=== PATIENT | female | born 1950 | race Caucasian/White ===

== ENCOUNTER 2023-02-25 10:13 | Outpatient (OUT) | payer MEDICARE, SELFPAY ==
--- NOTE | 2023-02-25 10:16 | MM_ITS ---
Patient: SJ HALL Exam Date: 02/25/2023 : 1950 Gender:F Ordering : DR ABEL ROLAND D.O. Admission #: [id number] Family : Order #: [id number] CLICK HERE TO VIEW EXAM RADIOLOGY REPORT PROCEDURE: MM TOMOSYNTHESIS SCREENING BI COMPARISON: MG MAMM SCREEN 3D [place] CAD, 02/24/2021. INDICATIONS: Screening Calculator Name NCI Breast Cancer Risk Assessment Tool 5 Year Breast Cancer Risk Not Reported. Lifetime Breast Cancer Risk Not Reported. Personal Breast Cancer No Personal Ovarian Cancer No Treatments None Family Cancers None LOCATION: [facility] BREAST COMPOSITION: Extremely dense, which lowers the sensitivity of mammography. FINDINGS: DIAGNOSTIC CATEGORY 2--BENIGN FINDING: RIGHT BREAST: No significant suspicious finding. Scattered benign-appearing calcifications are present. No significant change has occurred. LEFT BREAST: No significant suspicious finding. Scattered benign-appearing calcifications are present. No significant change has occurred. Stable calcified mass posterior upper-outer quadrant. RECOMMENDATIONS: ROUTINE MAMMOGRAM AND CLINICAL EVALUATION IN 12 MONTHS. PLEASE NOTE: A NORMAL MAMMOGRAM DOES NOT EXCLUDE THE POSSIBILITY OF BREAST CANCER. A CLINICALLY SUSPICIOUS PALPABLE LUMP SHOULD BE BIOPSIED. Dictated by: Rikki Yang M.D. on 02/26/2023 at 14:52 Approved by: Rikki Yang M.D. on 02/26/2023 at 15:01
== END 2023-02-25 10:14 ==
LOC: MAMMO 10:13
PROVIDERS: PCP Internal Medicine; Visit Provider Internal Medicine
DX: Z12.31 Encounter for screening mammogram for malignant neoplasm of breast (principal)
CPT/HCPCS: 77063; 77067

== ENCOUNTER 2023-05-18 12:51 | Outpatient (RCR) | payer MEDICARE, SELFPAY | END 2023-06-18 16:06 | disposition home or self-care (01) | LOC: PT 12:51 | PROVIDERS: PCP Internal Medicine; Visit Provider Internal Medicine | DX: M54.50 Low back pain, unspecified (principal); M54.16 Radiculopathy, lumbar region | CPT/HCPCS: 97010; 97035; 97110; 97140; 97161; 97530; G0283 ==

== ENCOUNTER 2023-08-19 06:40 | Outpatient (OUT) | payer MEDICARE, SELFPAY ==
[2023-08-19 06:49] LABS: Basophils Absolute Auto 0.1 10^3/uL (0.0-0.1); Basophils Percent Auto 0.9 % (0.2-2.0); Eosinophils Absolute Auto 0.4 10^3/uL (0.0-0.7); Eosinophils Percent Auto 5.6 % (0.9-7.0); Hematocrit 35.5 % (36.0-48.0); Hemoglobin 11.6 g/dL (12.0-16.0); Immature Granulocytes Abs Auto 0.02 10^3/uL (0.00-0.03); Immature Granulocytes Pct Auto 0.3 % (0.0-0.5); Lymphocytes Absolute Auto 1.2 10^3/uL (1.2-3.8); Lymphocytes Percent Auto 17.5 % (20.5-60.0); Mean Corpuscular HGB Conc 32.7 g/dL (29.9-35.2); Mean Corpuscular Hemoglobin 32.4 pg (26.7-34.0); Mean Corpuscular Volume 99.2 fL (81.0-99.0); Mean Platelet Volume 9.4 fL (9.5-13.5); Monocytes Absolute Auto 0.7 10^3/uL (0.3-0.8); Neutrophils Absolute Auto 4.5 10^3/uL (1.4-6.5); Neutrophils Percent Auto 65.7 % (43.0-75.0); Platelet Count 271 10^3/uL (150-450); Red Blood Count 3.58 10^6/uL (4.20-5.40); Red Cell Distribution Width 12.6 % (11.0-15.0); White Blood Count 6.9 10^3/uL (4.0-11.0)
[2023-08-19 07:05] LABS: Alanine Aminotransferase 19 U/L (14-59); Anion Gap 11.7; BUN Creatinine Ratio 17.7; Calcium 8.7 mg/dL (8.5-10.1); Carbon Dioxide 30.5 mmol/L (21.0-32.0); Chloride 104 mmol/L (98-107); Cholesterol 124 mg/dL (<=200); Estimated GFR (African America >60 (>=60); Estimated GFR (Non-African Ame >60 (>=60); Glucose 100 mg/dL (74-106); HDL Cholesterol 62 mg/dL (40-60); Potassium 4.2 mmol/L (3.5-5.1); Sodium 142 mmol/L (136-145); Triglycerides 120 mg/dL (<=150)
== END 2023-08-19 06:41 | disposition home or self-care (01) ==
LOC: LAB 06:40
PROVIDERS: PCP Internal Medicine; Visit Provider Internal Medicine
DX: E78.00 Pure hypercholesterolemia, unspecified (principal); I25.10 Atherosclerotic heart disease of native coronary artery without angina pectoris; I10 Essential (primary) hypertension; Z79.899 Other long term (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 therapy
CPT/HCPCS: 36415; 80048; 80061; 84460; 85025

== ENCOUNTER 2023-11-26 08:21 | Outpatient (OUT) | payer MEDICARE, SELFPAY ==
--- OUTSIDE RECORDS SUMMARY | 2023-11-26 08:23 | XMS_ITS | CCD ---
Author Name Unknown Address [address] [place] [address] Organization [facility] Care Team Providers Care Aluminum Siding Installer Name Role Phone FELISA HYATT Attending Unavailable ASUNCION, DONTAE Primary Care Unavailable DONTAE URIBE Referring Unavailable MASROOR, FELISA Admitting Unavailable ERIROOR, FELISA Attending Unavailable DONTAE URIBE Primary Care Unavailable DONTAE URIBE Referring Unavailable MASROOR, FELISA Admitting Unavailable MASROOR, FELISA Surgeon Unavailable MD Procedure Practitioner Unavailab le ELTAJOIE, JANAY Alba Admitting Unavailable ELTAHAWY, JANAY Alba Attending Unavailable DONTAE URIBE Primary Care Unavailable DONTAE URIBE Referring Unavailable Travis Richter Unavailable Dontae Uribe Unavailable PIPPA, TOMÁS Attending Unavailable ELTAHAWY, JANAY Attending Unavailable PIPPA, TOMÁS Admitting Unavailable PIPPA, TOMÁS Attending Unavailable HOY, BRANDI Primary Care Unavailable PIPPA, TOMÁS Consulting Unavailable BALL, DR ROMAN Admitting Unavailable BALL, DR ROMAN Attending Unavailable HOY, BRANDI Primary Care Unavailable BALL, DR ROMAN Consulting Unavailable BALL, DR ROMAN Admitting Unavailable BALL, DR ROMAN Attending Unavailable HOY, BRANDI Primary Care Unavailable BALL, DR ROMAN Consulting Unavailable PIPPA, TOMÁS Admitting Unavailable PIPPA, TOMÁS Attending Unavailable HOY, BRANDI Primary Care Unavailable ELTAHAWY, DR ASHFORD Admitting Unavailable ELTAHAWY, DR ASHFORD Attending Unavailable BALL, DR ROMAN Primary Care Unavailable ELTAHAWY, DR ASHFORD Consulting Unavailable ELTAHAWY, DR ASHFORD Admitting Unavailable ELTAHAWY, DR ASHFORD Attending Unavailable HOY, BRANDI Primary Care Unavailable ELTAHAWY, DR ASHFORD Consulting Unavailable Allergies Allergy Classification Reported Allergen(s) Allergy Type Date of Onset Reaction(s) Facility (4 sources) black walnut pollen extract; Translations: [[id number]-IOM REDUCTASE INHIBITORS] Drug Allergy 07-31-20 09 [facility] Repository (4 sources) Cephalosporins (Antibiotic); Translations: [CEPHALOSPORINS] Drug allergy (disorder) 07-31-20 09 [facility] Repository (1 source) Ciprofloxacin; Translations: [CIPRO] Drug Allergy 03-27-20 21 [facility] Repository (4 sources) Penicillins; Translations: [PENICILLINS] Drug allergy (disorder) 07-31-20 09 [facility] Repository (12 sources) Hmg-Coa Reductase Inhibitors (Statins) Propensity to adverse reactions [facility]WE[facility] Other (12 sources) Pcn, Cephalasporins Propensity to adverse reactions (Eriberto) 10/07/2012 [facility] Other (14 sources) Ciprofloxacin; Translations: [CIPROFLOXACIN] Drug Allergy 08-30-20 13 Unknown [facility] Repository (13 sources) Substance with sulfonamide structure and antibacterial mechanism of action (substance) Drug allergy Unknown [facility] Other (2 sources) Sulfonamides (Antibiotic) Drug allergy (disorder) 06-23-20 13 [facility] Repository (6 sources) HMG-CoA reductase inhibitor Drug allergy Unknown [employer] Other (6 sources) Penicillin G Benzathine & Proc Drug allergy 01-15-20 18 Unknown [facility] Other (4 sources) Statins Support *DIETARY PRODUCTS/DIETARY MANAGEME Propensity to adverse reactions 01-15-20 18 Unknown [facility] Other (1 source) Substance with penicillin structure and antibacterial mechanism of action (substance) Drug allergy Unknown [facility] Other (6 sources) Medicinal cephalosporin and acting as antibacterial agent (FN) Drug allergy 01-15-20 18 Unknown [facility] Other (1 source) patient allergy list reviewed by nurse or physicia Propensity to adverse reactions 01-15-20 18 Comment:Done [employer] Other Medications Current Medications Medication Drug Class(es) Dates Sig (Normalized) Sig (Original) [id number] 200 actuat albuterol 0.09 mg/actuat metered dose inhaler (13 sources) beta2-Adrenergic Agonist take 1 puff(s) by inhalation every four hours as needed Albuterol Sulfate HFA 108 (90 Base) MCG/ACT 1 puff as needed Inhalation every 4 hrs Active amLODIPine 5 mg oral tablet (14 sources) Dihydropyridine Calcium Channel Karmen take 1 tablet by mouth every twenty-four hours aspirin 81 mg chewable tablet (14 sources) Platelet Aggregation Inhibitor, Nonsteroidal Anti-inflammatory Drug take 2 tablets by mouth every twenty-four hours Aspirin 81 MG 2 tablet Orally Once a day Active azithromycin 250 mg oral tablet (20 sources) Macrolide Antimicrobial Start: 05-25-2023 take 250 mg by mouth once daily Start: 10-16-2022 Azithromycin 2 50 MG as directed Orally daily for 5 days Feb, Not-Taking Azithromycin 250 MG 2 tablet today followed by 1 daily Orally DAILY for 5 days Not-Taking Caltrate 600+D Plus Minis (13 sources) Caltrate 600+D P dung Minis Active carvedilol 25 mg oral tablet (14 sources) alpha-Adrenergic Karmen, beta-Adrenergic Karmen take 1 tablet by mouth every twelve hours Carvedilol 25 MG 1 tablet with food Orally Twice a day Active Carvedilol 6.25 MG Orally bid Active clopidogrel 75 mg oral tablet (14 sources) P2Y12 Platelet Inhibitor take 1 tablet by mouth every twenty-four hours dicyclomine hydrochloride 10 mg oral tablet (14 sources) Anticholinergic take 1 capsule by mouth four times daily as needed docusate sodium 100 mg oral capsule (14 sources) take 1 capsule by mouth every twenty-four hours 1 ml evolocumab 140 mg/ml prefilled syringe (14 sources) PCSK9 Inhibitor inject 1 mL by subcutaneous injection every month Repatha 140 MG/ML 1 mL Subcutaneous ONCE A MONTH Active Repatha Active ezetimibe 10 mg oral tablet (14 sources) Dietary Cholesterol Absorption Inhibitor take 1 tablet by mouth every twenty-four hours Zetia 10 MG 1 tablet Orally Once a day Active Zetia Active furosemide 20 mg oral tablet (7 sources) Loop Diuretic take 1 tablet by mouth every twenty-four hours Lasix 20 MG 1 tablet Orally Once a day Active linaclotide 0.145 mg oral capsule (14 sources) Guanylate Cyclase-C Agonist Start: 4 take 1 capsule by mouth once daily in the morning losartan potassium 25 mg oral tablet (14 sources) Angiotensin 2 Receptor Karmen take 1 tablet by mouth every twenty-four hours Losartan Potassium 25 MG 1 tablet Orally Once a day Active Losartan Potassi um Active Plenvu Bowel Prep PEG 3350 1 40g, Sodium Ascorbate 48.11g, Sodium Sulfate 9g, Ascorbic Acid 7.54g, Sodium Chloride 5.2g, Potassium Chloride 2.2g (14 sources) Start: 11-21-2019 Start: 11-21-2019 Plenvu Bowel P rep PEG 3350 140g, Sodium Ascorbate 48.11g, Sodium Sulfate 9g, Ascorbic Acid 7.54g, Sodium Chloride 5.2g, Potassium Chloride 2.2g Dose 1 pouch at 4pm as directed and pouches A and B at 11pm as directed orally one day before your procedure for 1 days [id number] PCN: [id number] GROUP:[id number] ID:[id number] Nov, Not-Taking predniSONE 1 mg/ml oral solution (13 sources) take 5 mL by mouth t hree times daily predniSONE 5 MG/5ML 5 mL Orally three times daily for 10 days Active take 5 mL by mouth once daily pr edniSONE 5 MG/5ML 5 mL Orally Once a day Active Tylenol Extra Strength 500 M G (14 sources) take 1 tablet by mouth every six hours as needed take 1 tablet by lucita th every six hours as needed Tylenol Extra Strength 500 MG 1 tablet a s needed Orally every 6 hrs Not-Taking Completed/Discontinued Medications Medication Drug Class(es) Dates Sig (Normalized) Sig (Original) benzonatate 200 mg oral capsule (3 sources) Non-narcotic Antitussive Start: 05-27-2023 take 1 capsule by mouth every eight hours Benzonatate 200 MG 1 capsule Orally Three times a day for 10 days May, Not-Taking Problems Active Problems Problem Classification Problem Date Documented Da te Episodic/Chronic Abdominal hernia (14 sources) Hiatal hernia; Translations: [Diaphragmatic hernia without obstruction or gangrene] Episodic Abdominal pain (20 sources) Abdominal pain; Translations: [Unspecified abdominal pain] Onset: 2 Resolved: 2 Episodic Acute bronchitis (14 sources) Acute bronchitis; Translations: [Acute bronchitis due to other specified organisms] Episodic Asthma (20 sources) Uncomplicated mild persistent asthma; Translations: [Mild persistent asthma, uncomplicated] Chronic Cardiac dysrhythmias (14 sources) Paroxysmal atrial fibrillation; Translations: [Paroxysmal atrial fibrillation] Chronic Chronic obstructive pulmonary disease and bronchiectasis (4 sources) Chronic bronchitis; Translations: [Unspecified chronic bronchitis] Onset: 8 Chronic Coronary atherosclerosis and other heart disease (20 sources) Coronary arteriosclerosis; Translations: [Atherosclerotic heart disease of [place] coronary artery without angina pectoris] Onset: 0 Resolved: 2 Chronic Coronary atherosclerosis and other heart disease (4 sources) Bypass stent graft present; Translations: [Presence of aortocoronary bypass graft] Episodic Digestive congenital anomalies (15 sources) Terminal esophageal web; Translations: [Esophageal web] Onset: 2 Resolved: 2 Chronic Disorders of lipid metabolism (20 sources) Pure hypercholesterolemia; Translations: [Familial hypercholesterolemia] Onset: 8 Chronic Esophageal disorders (16 sources) Stricture of esophagus; Translations: [Esophageal obstruction] Chronic Esophageal disorders (15 sources) Esophageal disorders; Translations: [Gastroesophageal reflux disease with esophagitis without hemorrhage] Essential hypertension (20 sources) Essential hypertension; Translations: [Essential (primary) hypertension] Onset: 2 Chronic Gastroduodenal ulcer (except hemorrhage) (4 sources) Peptic ulcer without hemorrhage, without perforation AND without obstruction; Translations: [Peptic ulcer, site unspecified, unspecified as acute or chronic, without hemorrhage or perforation] Chronic Gastrointestinal hemorrhage (14 sources) Rectal hemorrhage; Translations: [Hemorrhage of anus and rectum] Episodic Headache; including migraine (9 sources) Migraine with aura; Translations: [Migraine with aura, not intractable, without status migrainosus] Chronic Nonspecific chest pain (20 sources) Chest wall pain; Translations: [Other chest pain] Onset: 2 Resolved: 0 Episodic Osteoarthritis (17 sources) Localized, primary osteoarthritis of the shoulder region; Translations: [Primary osteoarthritis, right shoulder] Chronic Osteoporosis (13 sources) Primary osteoporosis; Translations: [Age-related osteoporosis without current pathological fracture] Chronic Other aftercare (1 source) 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 Episodic Other connective tissue disease (13 sources) Tendinitis of right rotator cuff; Translations: [Other shoulder lesions, right shoulder] Episodic Other connective tissue disease (4 sources) Mass of shoulder region; Translations: [Other shoulder lesions, right shoulder] Episodic Other gastrointestinal disorders (13 sources) Irritable bowel syndrome characterized by constipation; Translations: [Irritable bowel syndrome with constipation] Chronic Other gastrointestinal disorders (14 sources) Constipation; Translations: [Constipation, unspecified] Episodic Other gastrointestinal disorders (14 sources) Dysphagia; Translations: [Dysphagia, unspecified] Episodic Other gastrointestinal disorders (2 sources) Dysphagia, unspecified Onset: 2 Resolved: 2 Episodic Other gastrointestinal disorders (2 sources) Constipation, unspecified Onset: 2 Resolved: 2 Episodic Other gastrointestinal disorders (4 sources) H/O: gastrointestinal disease; Translations: [Personal history of other diseases of the digestive system] Episodic Other injuries and conditions due to external causes (4 sources) History of fall; Translations: [History of falling] Episodic Other non-traumatic joint disorders (4 sources) Shoulder joint pain; Translations: [Pain in right shoulder] Episodic Other screening for suspected conditions (not mental disorders or infectious disease) (1 source) Encounter for screening mammogram for malignant neoplasm of breast Episodic Other skin disorders (17 sources) Vesicular eczema of hands and/or feet; Translations: [Dyshidrosis [pompholyx]] Episodic Other upper respiratory disease (17 sources) Allergic rhinitis due to pollen; Translations: [Allergic rhinitis due to pollen] Chronic Other upper respiratory infections (20 sources) Acute maxillary sinusitis; Translations: [Acute recurrent maxillary sinusitis] Episodic Residual codes; unclassified (13 sources) Asymptomatic menopausal state; Translations: [Menopause] Episodic Residual codes; unclassified (4 sources) Tobacco user; Translations: [Tobacco use] Episodic Residual codes; unclassified (4 sources) Postmenopausal state; Translations: [Asymptomatic menopausal state] Episodic Spondylosis; intervertebral disc disorders; other back problems (19 sources) Lumbar spondylosis; Translations: [Spondylosis without myelopathy or radiculopathy, lumbar region] Chronic Spondylosis; intervertebral disc disorders; other back problems (1 source) Radiculopathy, site unspecified Episodic Sprains and strains (17 sources) Neck sprain; Translations: [Strain of muscle, fascia and tendon at neck level, initial encounter] Episodic Viral infection (4 sources) 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; Translations: [Post COVID-19 condition, unspecified] Past or Other Problems Problem Classification Problem Date Documented Date Episodic/Chronic Bacterial infection; unspecified site (2 sources) Bacterial infectious disease; Translations: [Bacterial infection, unspecified, in conditions classified elsewhere and of unspecified site] Onset: 01-14-2018 Episodic Diverticulosis and diverticulitis (4 sources) Diverticulitis of colon; Translations: [Diverticulitis of intestine, part unspecified, without perforation or abscess without bleeding] Resolved: 10-22-2020 Chronic Immunizations and screening for infectious disease (4 sources) Contact with and (suspected) exposure to other viral communicable diseases; Translations: [Contact with and (suspected) exposure to COVID-19] Resolved: 02-03-2021 Episodic Nausea and vomiting (4 sources) Nausea; Translations: [Nausea] Resolved: 08-08-2020 Episodic Otitis media and related conditions (6 sources) Unspecified Eustachian tube disorder, left ear; Translations: [Eustachian tube salpingitis] Onset: 12-08-2018 Episodic Residual codes; unclassified (4 sources) Edema, unspecified; Translations: [EDEMA UNSPECIFIED] Onset: 03-05-2022 Episodic Unclassified (11 sources) Post-COVID syndrome; Translations: [Post-COVID syndrome] Unclassified (1 source) Acute cough R05.1 Unclassified (2 sources) 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 Rigo Julio Basophils/100 WBC (Bld) 0.6 % Normal 0.2-2.0 [facility] Comment on above: Performed By: #### H FPFCBC #### [facility] [address] [address] [address] Rigo Julio EO # 0.1 103/ul Normal 0.0-0.7 [facility] Comment on above: Performed By: #### H FPFCBC #### [facility] [address] [place] [address] Dr. Rigo Julio Eosinophils/100 WBC (Bld) 1.4 % Normal 0.9-7.0 [facility] Comment on above: Performed By: #### H FPFCBC #### [facility] [address] [place] [address] Dr. Rigo Julio Erythrocyte distribution width (RBC) [Ratio] 12.8 % Normal 11.0-15.0 [facility] Comment on above: Performed By: #### H FPFCBC #### [facility] [address] [place] [address] Dr. Rigo Julio Hematocrit (Bld) [Volume fraction] 37.5 % Normal 36.0-48.0 [facility] Comment on above: Performed By: #### H FPFCBC #### [facility] [address] [place] [address] Dr. Rigo Julio Hemoglobin (Bld) [Mass/Vol] 12.3 g/dL Normal 12.0-16.0 [facility] Comment on above: Performed By: #### H FPFCBC #### [facility] [address] [place] [address] Dr. Rigo Julio IG # 0.02 10e3/ul Normal 0.00-0.03 [facility] Comment on above: Performed By: #### H FPFCBC #### [facility] [address] [place] [address] Dr. Rigo Julio IG % 0.3 % Normal 0.0-0.5 [facility] Comment on above: Performed By: #### H FPFCBC #### [facility] [address] [place] [address] Dr. Rigo Julio LYMPH # 1.3 103/ul Normal 1.2-3.8 [facility] Comment on above: Performed By: #### H FPFCBC #### [facility] [address] [place] [address] Dr. Rigo Julio Lymphocytes/100 WBC (Bld) 20.1 % Critically low 20.5-60.0 [facility] Comment on above: Performed By: #### H FPFCBC #### [facility] [address] [place] [address] Dr. Rigo Julio MCH (RBC) [Entitic mass] 31.4 pg Normal 26.7-34.0 [facility] Comment on above: Performed By: #### H FPFCBC #### [facility] [address] [place] [address] Dr. Rigo Julio MCHC (RBC) [Mass/Vol] 32.8 g/dL Normal 29.9-35.2 [facility] Comment on above: Performed By: #### H FPFCBC #### [facility] [address] [place] [address] Dr. Rigo Julio MCV (RBC) [Entitic vol] 95.7 fL Normal 81.0-99.0 [facility] Comment on above: Performed By: #### H FPFCBC #### [facility] [address] [place] [address] Dr. Rigo Julio MONO # 0.5 103/ul Normal 0.3-0.8 [facility] Comment on above: Performed By: #### H FPFCBC #### [facility] [address] [place] [address] Dr. Rigo Julio Monocytes/100 WBC (Bld) 7.3 % Normal 1.7-12.0 [facility] Comment on above: Performed By: #### H FPFCBC #### [facility] [address] [place] [address] Dr. Rigo Julio NEUT # 4.6 103/ul Normal 1.4-6.5 [facility] Comment on above: Performed By: #### H FPFCBC #### [facility] [address] [place] [address] Dr. Rigo Julio Neutrophils/100 WBC (Bld) 70.3 % Normal 43.0-75.0 [facility] Comment on above: Performed By: #### H FPFCBC #### [facility] [address] [address] [address] Rigo Julio Platelet mean volume (Bld) [Entitic vol] 9.6 fL Normal 9.5-13.5 [facility] Comment on above: Performed By: #### H FPFCBC #### [facility] [address] [address] [address] Rigo Julio PLT 272 103/ul Normal 150-450 [facility] Comment on above: Performed By: #### H FPFCBC #### [facility] [address] [address] [address] Rigo Julio RBC 3.92 106/ul Critically low 4.20-5.40 [facility] Comment on above: Performed By: #### H FPFCBC #### [facility] [address] [place] [address] Dr. Rigo Julio WBC 6.5 103/ul Normal 4.0-11.0 [facility] Comment on above: Performed By: #### H FPFCBC #### [facility] [address] [place] [address] Dr. Rigo Juloi [facility] GLYCOHEMOGLOBIN A1Con 11-24-2022 Glucose [Mass/Vol] 114 mg/dL Normal [facility] Comment on above: Performed By: #### H FPFA1C #### [facility] [address] [place] [address] Dr. Rigo Julio HbA1c (Bld) [Mass fraction] 5.6 % Normal 4.5-6.2 [facility] Comment on above: Performed By: #### H FPFA1C #### [facility] [address] [place] [address] Dr. Rigo Jul[facility]23 Albumin [Mass/Vol] 4.2 g/dL Normal 3.4-5.0 [facility] Comment on above: Performed By: #### H FPF #### [facility] [address] [place] [address] Dr. Rigo Julio Albumin/Globulin [Mass ratio] 1.2 {ratio} Normal [facility] Comment on above: Performed By: #### H FPF #### [facility] [address] [address] [address] Rigo Julio ALP [Catalytic activity/Vol] 76 U/L Normal 46-116 [facility] Comment on above: Performed By: #### H FPF #### [facility] [address] [address] [address] Rigo Julio ALT [Catalytic activity/Vol] 23 U/L Normal 14-59 [facility] Comment on above: Performed By: #### H FPF #### [facility] [address] [address] [address] Rigo Julio AST [Catalytic activity/Vol] 19 U/L Normal 15-37 [facility] Comment on above: Performed By: #### H FPF #### [facility] [address] [address] [address] Rigo Julio Bilirubin [Mass/Vol] 0.4 mg/dL Normal 0.2-1.0 [facility] Comment on above: Performed By: #### H FPF #### [facility] [address] [address] [address] Rigo Julio Calcium [Mass/Vol] 9.2 mg/dL Normal 8.5-10.1 [facility] Comment on above: Performed By: #### H FPF #### [facility] [address] [address] [address] Rigo Julio Chloride [Moles/Vol] 105 mmol/L Normal 98-107 [facility] Comment on above: Performed By: #### H FPF #### [facility] [address] [address] [address] Rigo Julio CHOL-HDL RATIO NORM SEE BELOW Normal [facility] Comment on above: Result Comment: 3.3 - 4.4 LOW RISK 4.4 - 7.1 AVERAGE RISK 7.1 - 11.0 MODERATE RISK >11.0 HIGH RISK Performed By: #### H FPF #### [facility] [address] [address] [address] Rigo Julio Cholesterol [Mass/Vol] 158 mg/dL Normal <=200 [facility] Comment on above: Performed By: #### H FPF #### [facility] [address] [address] [address] Rigo Julio Cholesterol in HDL [Mass/Vol] 59 mg/dL Normal 40-60 [facility] Comment on above: Performed By: #### H FPF #### [facility] [address] [address] [address] Rigo Julio Cholesterol in LDL [Mass/Vol] 69.0 mg/dL Normal [facility] Comment on above: Performed By: #### H FPF #### [facility] [address] [address] [address] Rigo Julio Cholesterol.total/Cho lesterol in HDL [Mass ratio] 2.7 {ratio} Normal [facility] Comment on above: Performed By: #### H FPF #### [facility] [address] [address] [address] Rigo Julio CO2 [Moles/Vol] 30.2 mmol/L Normal 21.0-32.0 [facility] Comment on above: Performed By: #### H FPF #### [facility] [address] [address] [address] Rigo Julio Creatinine [Mass/Vol] 0.79 mg/dL Normal 0.55-1.02 [facility] Comment on above: Performed By: #### H FPF #### [facility] [address] [address] [address] Rigo Julio Globulin (S) [Mass/Vol] 3.6 g/dL Normal [facility] Comment on above: Performed By: #### H FPF #### [facility] [address] [address] [address] Rigo Julio Glucose [Mass/Vol] 99 mg/dL Normal 74-106 [facility] Comment on above: Performed By: #### H FPF #### [facility] [address] [address] [address] Rigo Julio HDL NORMAL > or = 60 mg/dl - LO W CARDIOVASCULAR RISK <40 mg/dl - HIGH CARDIOVASCULAR RISK Normal [facility] Comment on above: Performed By: #### H FPF #### [facility] [address] [address] [address] Rigo Julio LDL CALC NORMAL SEE BELOW Normal [facility] Comment on above: Result Comment: <100 mg/dl OPTIMAL 100 - 129 mg/dl NEAR OR ABOVE OPTIMAL 130 - 159 mg/dl BORDERLINE HIGH 160 - 189 mg/dl HIGH >190 mg/dl VERY HIGH Performed By: #### H FPF #### [facility] [address] [address] Dr[address] Rigo Julio Potassium [Moles/Vol] 4.8 mmol/L Normal 3.5-5.1 [facility] Comment on above: Performed By: #### H FPF #### [facility] [address] [place] [address] Dr. Rigo Julio Protein [Mass/Vol] 7.8 g/dL Normal 6.4-8.2 [facility] Comment on above: Performed By: #### H FPF #### [facility] [address] [place] [address] Dr. Rigo Julio Sodium [Moles/Vol] 143 mmol/L Normal 136-145 [facility] Comment on above: Performed By: #### H FPF #### [facility] [address] [place] [address] Dr. Rigo Julio Triglyceride [Mass/Vol] 150 mg/dL Normal <=150 [facility] Comment on above: Performed By: #### H FPF #### [facility] [address] [address] [address] Rigo Julio TSH 1.255 uIU/mL Normal 0.358-3.740 [facility] Comment on above: Performed By: #### H FPF #### [facility] [address] [address] [address] Rigo Julio Urea nitrogen [Mass/Vol] 11.0 mg/dL Normal 7.0-18.0 [facility] Comment on above: Performed By: #### H FPF #### [facility] [address] [place] [address] Dr. Rigo Julio Urea nitrogen/Creatinine [Mass ratio] 13.9 mg/mg Normal [facility] Comment on above: Performed By: #### H FPF #### [facility] [address] [address] [address] Rigo Julio VLDL CALC 30.0 mg/dL Normal [facility] Comment on above: Performed By: #### H FPF #### [facility] [address] [address] [address] Rigo Julio Office Visiton 11-23-2022 Follow-up visit [id number] Mandy Brewstermichael Champagne 1950 F Date Provider Department Center 11/23/2022 Priscilla-JANAY AJ [facility] Family History Problem Relation Age of Onset Coronary artery disease Mother Coronary artery disease Father Alzheimer's disease Father Family Status - Relation Status Age at Mother Father Level of Service:19983 MD OFFICE/OUTPATIENT ESTABLISHED LOW MDM 20-29 MIN Reason for Visit and Comments: Coronary Artery Disease [187] Hypertension [888898] Hyperlipidemia [182] Normal [facility] LIPID PROFILEon 10-06-2022 CHOL-HDL RATIO NORM SEE BELOW Normal [facility] Comment on above: Result Comment: 3.3 - 4.4 LOW RISK 4.4 - 7.1 AVERAGE RISK 7.1 - 11.0 MODERATE RISK >11.0 HIGH RISK Performed By: #### L IPID, CMP #### [facility] [address] [place] [address] Dr. Rigo Julio Cholesterol [Mass/Vol] 131 mg/dL Normal <=200 [facility] Comment on above: Performed By: #### L IPID, CMP #### [facility] [address] [place] [address] Dr. Rigo Julio Cholesterol in HDL [Mass/Vol] 56 mg/dL Normal 40-60 [facility] Comment on above: Performed By: #### L IPID, CMP #### [facility] [address] [address] [address] Rigo Julio Cholesterol in LDL [Mass/Vol] 43.8 mg/dL Normal [facility] Comment on above: Performed By: #### L IPID, CMP #### [facility] [address] [address] [address] Rigo Julio Cholesterol.total/Cho lesterol in HDL [Mass ratio] 2.3 {ratio} Normal [facility] Comment on above: Performed By: #### L IPID, CMP #### [facility] [address] [address] [address] Rigo Julio HDL NORMAL > or = 60 mg/dl - LO W CARDIOVASCULAR RISK <40 mg/dl - HIGH CARDIOVASCULAR RISK Normal [facility] Comment on above: Performed By: #### L IPID, CMP #### [facility] [address] [address] [address] Rigo Julio LDL CALC NORMAL SEE BELOW Normal [facility] Comment on above: Result Comment: <100 mg/dl OPTIMAL 100 - 129 mg/dl NEAR OR ABOVE OPTIMAL 130 - 159 mg/dl BORDERLINE HIGH 160 - 189 mg/dl HIGH >190 mg/dl VERY HIGH Performed By: #### L IPID, CMP #### [facility] [address] [address] [address] Rigo Julio Triglyceride [Mass/Vol] 156 mg/dL Critically high <=150 [facility] Comment on above: Performed By: #### L IPID, CMP #### [facility] [address] [address] [address] Rigo Julio VLDL CALC 31.2 mg/dL Normal [facility] Comment on above: Performed By: #### L IPID, CMP #### [facility] [address] [address] [address] Rigo Julio PROF 14(COMP METB)on 023 Albumin [Mass/Vol] 3.7 g/dL Normal 3.4-5.0 [facility] Comment on above: Performed By: #### L IPID, CMP #### [facility] [address] [address] [address] Rigo Julio Albumin/Globulin [Mass ratio] 1.1 {ratio} Normal [facility] Comment on above: Performed By: #### L IPID, CMP #### [facility] [address] [address] [address] Rigo Julio ALP [Catalytic activity/Vol] 80 U/L Normal 46-116 [facility] Comment on above: Performed By: #### L IPID, CMP #### [facility] [address] [address] [address] Rigo Julio ALT [Catalytic activity/Vol] 16 U/L Normal 14-59 [facility] Comment on above: Performed By: #### L IPID, CMP #### [facility] [address] [address] [address] Rigo Julio Anion gap [Moles/Vol] 11.7 mmol/L Normal [facility] Comment on above: Performed By: #### L IPID, CMP #### [facility] [address] [address] [address] Rigo Julio AST [Catalytic activity/Vol] 16 U/L Normal 15-37 [facility] Comment on above: Performed By: #### L IPID, CMP #### [facility] [address] [address] [address] Rigo Julio Bilirubin [Mass/Vol] 0.3 mg/dL Normal 0.2-1.0 [facility] Comment on above: Performed By: #### L IPID, CMP #### [facility] [address] [address] [address] Rigo Julio Calcium [Mass/Vol] 9.3 mg/dL Normal 8.5-10.1 [facility] Comment on above: Performed By: #### L IPID, CMP #### [facility] [address] [address] [address] Rigo Julio Chloride [Moles/Vol] 104 mmol/L Normal 98-107 [facility] Comment on above: Performed By: #### L IPID, CMP #### [facility] [address] [address] [address] Rigo Julio CO2 [Moles/Vol] 30.1 mmol/L Normal 21.0-32.0 [facility] Comment on above: Performed By: #### L IPID, CMP #### [facility] [address] [address] [address] Rigo Julio Creatinine [Mass/Vol] 0.74 mg/dL Normal 0.55-1.02 [facility] Comment on above: Performed By: #### L IPID, CMP #### [facility] [address] [address] [address] Rigo Julio EGFR-AF GAMBIAN >60 Normal >=60 [facility] Comment on above: Performed By: #### L IPID, CMP #### [facility] [address] [address] [address] Rigo Julio EGFR-NON AF GAMBIAN >60 Normal >=60 [facility] Comment on above: Performed By: #### L IPID, CMP #### [facility] [address] [address] [address] Rigo Julio Globulin (S) [Mass/Vol] 3.5 g/dL Normal [facility] Comment on above: Performed By: #### L IPID, CMP #### [facility] [address] [address] [address] Rigo Julio Glucose [Mass/Vol] 105 mg/dL Normal 74-106 [facility] Comment on above: Performed By: #### L IPID, CMP #### [facility] [address] [address] [address] Rigo Julio Potassium [Moles/Vol] 4.8 mmol/L Normal 3.5-5.1 [facility] Comment on above: Performed By: #### L IPID, CMP #### [facility] [address] [address] [address] Rigo Julio Protein [Mass/Vol] 7.2 g/dL Normal 6.4-8.2 [facility] Comment on above: Performed By: #### L IPID, CMP #### [facility] [address] [address] [address] Rigo Julio Sodium [Moles/Vol] 141 mmol/L Normal 136-145 [facility] Comment on above: Performed By: #### L IPID, CMP #### [facility] [address] [address] [address] Rigo Julio Urea nitrogen [Mass/Vol] 13.0 mg/dL Normal 7.0-18.0 [facility] Comment on above: Performed By: #### L IPID, CMP #### [facility] [address] [address] [address] Rigo Julio Urea nitrogen/Creatinine [Mass ratio] 17.6 mg/mg Normal [facility] Comment on above: Performed By: #### L IPID, CMP #### [facility] [address] [address] [address] Rigo Julio 36on 07-06-2022 36 Patient spoke with Jena at [facility] cardiac rehab and had her give me this message: She has gone back down to losartan 25mg daily due to lightheadedness and hypotension. Said her BP has been ok. Jena said her BP this morning at rehab was 128 systolic. Normal [facility] Follow-Upon 07-01-2022 Follow-Up [id number] Angelo Brewster 1950 F Date Provider Department Center 07/01/2022 TOMÁS LOPEZ [facility] Family History Problem Relation Age of Onset Coronary artery disease Mother Coronary artery disease Father Alzheimer's disease Father Family Status - Relation Status Age at Mother Father Level of Service:21662 MD OFFICE/OUTPATIENT ESTABLISHED LOW MDM 20-29 MIN Reason for Visit and Comments: Coronary Artery Disease [187] Hyperlipidemia [182] Hypertension [667118] Normal [facility] LIPID PROFILEon 04-14-2022 CHOL-HDL RATIO NORM SEE BELOW Normal [facility] Comment on above: Result Comment: 3.3 - 4.4 LOW RISK 4.4 - 7.1 AVERAGE RISK 7.1 - 11.0 MODERATE RISK >11.0 HIGH RISK Performed By: #### L IPID, LIVER #### [facility] [address] [address] [address] Rigo Julio Cholesterol [Mass/Vol] 122 mg/dL Normal <=200 [facility] Comment on above: Performed By: #### L IPID, LIVER #### [facility] [address] [address] [address] Rigo Julio Cholesterol in HDL [Mass/Vol] 58 mg/dL Normal 40-60 [facility] Comment on above: Performed By: #### L IPID, LIVER #### [facility] [address] [address] [address] Rigo Julio Cholesterol in LDL [Mass/Vol] 33.4 mg/dL Normal [facility] Comment on above: Performed By: #### L IPID, LIVER #### [facility] [address] [place] [address] Dr. Rigo Julio Cholesterol.total/Cho lesterol in HDL [Mass ratio] 2.1 {ratio} Normal [facility] Comment on above: Performed By: #### L IPID, LIVER #### [facility] [address] [place] [address] Dr. Rigo Julio HDL NORMAL > or = 60 mg/dl - LO W CARDIOVASCULAR RISK <40 mg/dl - HIGH CARDIOVASCULAR RISK Normal [facility] Comment on above: Performed By: #### L IPID, LIVER #### [facility] [address] [place] [address] Dr. Rigo Julio LDL CALC NORMAL SEE BELOW Normal [facility] Comment on above: Result Comment: <100 mg/dl OPTIMAL 100 - 129 mg/dl NEAR OR ABOVE OPTIMAL 130 - 159 mg/dl BORDERLINE HIGH 160 - 189 mg/dl HIGH >190 mg/dl VERY HIGH Performed By: #### L IPID, LIVER #### [facility] [address] [address] [address] Rigo Julio Triglyceride [Mass/Vol] 153 mg/dL Critically high <=150 [facility] Comment on above: Performed By: #### L IPID, LIVER #### [facility] [address] [place] [address] Dr. Rigo Julio VLDL CALC 30.6 mg/dL Normal [facility] Comment on above: Performed By: #### L IPID, LIVER #### [facility] [address] [address] [address] Rigo Julio LIVER PROFILEon 04-14-2022 Albumin [Mass/Vol] 3.9 g/dL Normal 3.4-5.0 [facility] Comment on above: Performed By: #### L IPID, LIVER #### [facility] [address] [place] [address] Dr. Rigo Julio Albumin/Globulin [Mass ratio] 1.1 {ratio} Normal [facility] Comment on above: Performed By: #### L IPID, LIVER #### [facility] [address] [place] [address] Dr. Rigo Julio ALP [Catalytic activity/Vol] 76 U/L Normal 46-116 [facility] Comment on above: Performed By: #### L IPID, LIVER #### [facility] [address] [place] [address] Dr. Rigo Julio ALT [Catalytic activity/Vol] 21 U/L Normal 14-59 [facility] Comment on above: Performed By: #### L IPID, LIVER #### [facility] [address] [place] [address] Dr. Rigo Julio AST [Catalytic activity/Vol] 16 U/L Normal 15-37 [facility] Comment on above: Performed By: #### L IPID, LIVER #### [facility] [address] [place] [address] Dr. Rigo Julio BILI, CONJUGATED 0.1 mg/dL Normal 0.0-0.2 [facility] Comment on above: Performed By: #### L IPID, LIVER #### [facility] [address] [place] [address] Dr. Rigo Julio Bilirubin [Mass/Vol] 0.4 mg/dL Normal 0.2-1.0 [facility] Comment on above: Performed By: #### L IPID, LIVER #### [facility] [address] [place] [address] Dr. Rigo Julio Globulin (S) [Mass/Vol] 3.6 g/dL Normal [facility] Comment on above: Performed By: #### L IPID, LIVER #### [facility] [address] [place] [address] Dr. Rigo Julio Protein [Mass/Vol] 7.5 g/dL Normal 6.4-8.2 [facility] Comment on above: Performed By: #### L IPID, LIVER #### [facility] [address] [place] [id number] [address] Rigo Sy 03-10-2022 L - -------- Specimen: [id number] Received: 03/10/22 Status: CINDY Veronica Num: [id number] Spec Type: Surgical Subm Dr: Travis Richter MD Tissues: A Esophagus Biopsy (ESOPHAGUS BX) Procedures: HE Stain/2, Gross/Micro L4 -------- Patient Age/Sex Location Account Attending Physician -------- Ambar Brewster 71/F [id number] Travis Richter MD -------- SPEC NUM: [id number] RECD: 03/10/22 STATUS: CINDY MARTIN NUM: [id number] ALEE: 03/10/22 DR: Travis Richter MD ENTERED: 03/10/22 [facility] DR: SPEC TYPE: Surgical DEPT: S ORDERED: HE Stain/2, Gross/Micro L4 ORDERED: HE Stain/2, Gross/Micro L4 Pathological Diagnosis Esophagus, biopsy: -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 Entirely submitted in one cassette labeled A1. Type of Fixative: 10% Neutral Buffered Formalin (SM/SK) Microscopic Description Two glass slides with H and E stain material have been examined. The microscopic findings support the above pathologic diagnosis CPT Codes 01333 -------- -------- Specimen: [id number] Received: 03/10/22 Status: CINDY Martin Num: [id number] Spec Type: Surgical Subm Dr: Travis Richter MD Tissues: A Esophagus Biopsy (ESOPHAGUS BX) Procedures: HE Stain/2, Gross/Micro L4 -------- Patient: Ambar Brewster [id number] (Continued) -------- Signed (signature on file) Nadege Cardenas MD 03/11/22 1254 Normal [facility] COVID-19 [facility] 03-06-2022 SARS-CoV-2 (COVID-19) RNA EDA+probe Ql (Unsp spec) Negative Normal Negative [facility] Comment on above: Order Comment: Healt hcare Worker?: N Result Comment: Testing for SARS-CoV-2 by RT-PCR This test was developed and its performance characteristics determined by [employer] and validated at the [facility]. This test has not been FDA cleared or approved. This test has been authorized by FDA under an Emergency Use Authorization (EUA). This test has been validated in accordance with the FDA's Guidance Document (Policy for Diagnostics Testing in Laboratories Certified to Perform High Complexity Testing under CLIA prior to Emergency Use Authorization for Coronavirus Disease-2019 during the Public Health Emergency) issued on December 21, 2019. This test is only authorized for the duration of time the declaration that circumstances exist justifying the authorization of the emergency use of in vitro diagnostic tests for detection of SARS-CoV-2 virus and/or diagnosis of COVID-19 infection under section 564(b)(1) of the Act, 21 U.S.C. 360bbb-3(b)(1), unless the authorization is terminated or revoked sooner. PERFORMED BY: [facility] [address] [place] [address] PATHOLOGIST GEAR CUTTING MACHINE OPERATOR SHARIF ARNOLD M.D. Performed By: #### C OVID 19 [facility] #### [facility] [address] [id number] [facility] PROF 14(COMP METB)on 022 Albumin [Mass/Vol] 3.7 g/dL Normal 3.4-5.0 [facility] Comment on above: Performed By: #### C MP #### [facility] [address] [place] [address] Dr. Rigo Julio Albumin/Globulin [Mass ratio] 1.0 {ratio} Normal [facility] Comment on above: Performed By: #### C MP #### [facility] [address] [place] [address] Dr. Rigo Julio ALP [Catalytic activity/Vol] 79 U/L Normal 46-116 [facility] Comment on above: Performed By: #### C MP #### [facility] [address] [place] [address] Dr. Rigo Julio ALT [Catalytic activity/Vol] 22 U/L Normal 14-59 [facility] Comment on above: Performed By: #### C MP #### [facility] [address] [place] [address] Dr. Rigo Julio Anion gap [Moles/Vol] 10.3 mmol/L Normal [facility] Comment on above: Performed By: #### C MP #### [facility] [address] [place] [address] Dr. Rigo Julio AST [Catalytic activity/Vol] 16 U/L Normal 15-37 [facility] Comment on above: Performed By: #### C MP #### [facility] [address] [place] [address] Dr. Rigo Julio Bilirubin [Mass/Vol] 0.3 mg/dL Normal 0.2-1.0 [facility] Comment on above: Performed By: #### C MP #### [facility] [address] [place] [address] Dr. Rigo Julio Calcium [Mass/Vol] 9.2 mg/dL Normal 8.5-10.1 [facility] Comment on above: Performed By: #### C MP #### [facility] [address] [place] [address] Dr. Rigo Julio Chloride [Moles/Vol] 104 mmol/L Normal 98-107 [facility] Comment on above: Performed By: #### C MP #### [facility] [address] [address] [address] Rigo Julio CO2 [Moles/Vol] 29.7 mmol/L Normal 21.0-32.0 [facility] Comment on above: Performed By: #### C MP #### [facility] [address] [place] [address] Dr. Rigo Julio Creatinine [Mass/Vol] 0.80 mg/dL Normal 0.55-1.02 [facility] Comment on above: Performed By: #### C MP #### [facility] [address] [place] [address] Dr. Rigo Julio EGFR-AF GAMBIAN >60 Normal >=60 [facility] Comment on above: Performed By: #### C MP #### [facility] [address] [place] [address] Dr. Rigo Julio EGFR-NON AF GAMBIAN >60 Normal >=60 [facility] Comment on above: Performed By: #### C MP #### [facility] [address] [place] [address] Dr. Rigo Julio Globulin (S) [Mass/Vol] 3.8 g/dL Normal [facility] Comment on above: Performed By: #### C MP #### [facility] [address] [place] [address] Dr. Rigo Julio Glucose [Mass/Vol] 93 mg/dL Normal 74-106 [facility] Comment on above: Performed By: #### C MP #### [facility] [address] [place] [address] Dr. Rigo Julio Potassium [Moles/Vol] 5.0 mmol/L Normal 3.5-5.1 [facility] Comment on above: Performed By: #### C MP #### [facility] [address] [place] [address] Dr. Rigo Julio Protein [Mass/Vol] 7.5 g/dL Normal 6.4-8.2 [facility] Comment on above: Performed By: #### C MP #### [facility] [address] [place] [address] Dr. Rigo Julio Sodium [Moles/Vol] 139 mmol/L Normal 136-145 [facility] Comment on above: Performed By: #### C MP #### [facility] [address] [place] [address] Dr. Rigo Julio Urea nitrogen [Mass/Vol] 11.0 mg/dL Normal 7.0-18.0 [facility] Comment on above: Performed By: #### C MP #### [facility] [address] [place] [address] Dr. Rigo Julio Urea nitrogen/Creatinine [Mass ratio] 13.8 mg/mg Normal [facility] Comment on above: Performed By: #### C MP #### [facility] [address] [place] [address] Dr. Rigo Julio [facility] CBC AUTO DIFFon 11-27-2021 BASO # 0.1 103/ul Normal 0.0-0.1 [facility] Comment on above: Performed By: #### H FPFCBC #### [facility] [address] [place] [address] Dr. Rigo Julio Basophils/100 WBC (Bld) 0.9 % Normal 0.2-2.0 [facility] Comment on above: Performed By: #### H FPFCBC #### [facility] [address] [place] [address] Dr. Rigo Julio EO # 0.2 103/ul Normal 0.0-0.7 [facility] Comment on above: Performed By: #### H FPFCBC #### [facility] [address] [place] [address] Dr. Rigo Julio Eosinophils/100 WBC (Bld) 2.7 % Normal 0.9-7.0 [facility] Comment on above: Performed By: #### H FPFCBC #### [facility] [address] [place] [address] Dr. Rigo Julio Erythrocyte distribution width (RBC) [Ratio] 13.5 % Normal 11.0-15.0 [facility] Comment on above: Performed By: #### H FPFCBC #### [facility] [address] [place] [address] Dr. Rigo Julio Hematocrit (Bld) [Volume fraction] 38.8 % Normal 36.0-48.0 [facility] Comment on above: Performed By: #### H FPFCBC #### [facility] [address] [place] [address] Dr. Rigo Julio Hemoglobin (Bld) [Mass/Vol] 12.6 g/dL Normal 12.0-16.0 [facility] Comment on above: Performed By: #### H FPFCBC #### [facility] [address] [place] [address] Dr. Rigo Julio IG # 0.02 10e3/ul Normal 0.00-0.03 [facility] Comment on above: Performed By: #### H FPFCBC #### [facility] [address] [place] [address] Dr. Rigo Julio IG % 0.4 % Normal 0.0-0.5 [facility] Comment on above: Performed By: #### H FPFCBC #### [facility] [address] [place] [address] Dr. Rigo Julio LYMPH # 1.3 103/ul Normal 1.2-3.8 [facility] Comment on above: Performed By: #### H FPFCBC #### [facility] [address] [place] [address] Dr. Rigo Julio Lymphocytes/100 WBC (Bld) 22.8 % Normal 20.5-60.0 [facility] Comment on above: Performed By: #### H FPFCBC #### [facility] [address] [place] [address] Dr. Rigo Julio MCH (RBC) [Entitic mass] 30.5 pg Normal 26.7-34.0 [facility] Comment on above: Performed By: #### H FPFCBC #### [facility] [address] [place] [address] Dr. Rigo Julio MCHC (RBC) [Mass/Vol] 32.5 g/dL Normal 29.9-35.2 [facility] Comment on above: Performed By: #### H FPFCBC #### [facility] [address] [place] [address] Dr. Rigo Julio MCV (RBC) [Entitic vol] 93.9 fL Normal 81.0-99.0 [facility] Comment on above: Performed By: #### H FPFCBC #### [facility] [address] [place] [address] Dr. Rigo Julio MONO # 0.4 103/ul Normal 0.3-0.8 [facility] Comment on above: Performed By: #### H FPFCBC #### [facility] [address] [place] [address] Dr. Rigo Julio Monocytes/100 WBC (Bld) 7.3 % Normal 1.7-12.0 [facility] Comment on above: Performed By: #### H FPFCBC #### [facility] [address] [place] [address] Dr. Rigo Julio NEUT # 3.6 103/ul Normal 1.4-6.5 [facility] Comment on above: Performed By: #### H FPFCBC #### [facility] [address] [place] [address] Dr. Rigo Julio Neutrophils/100 WBC (Bld) 65.9 % Normal 43.0-75.0 [facility] Comment on above: Performed By: #### H FPFCBC #### [facility] [address] [place] [address] Dr. Rigo Julio Platelet mean volume (Bld) [Entitic vol] 9.7 fL Normal 9.5-13.5 [facility] Comment on above: Performed By: #### H FPFCBC #### [facility] [address] [address] [address] Rigo Julio PLT 333 103/ul Normal 150-450 [facility] Comment on above: Performed By: #### H FPFCBC #### [facility] [address] [address] [address] Rigo Julio RBC 4.13 106/ul Critically low 4.20-5.40 [facility] Comment on above: Performed By: #### H FPFCBC #### [facility] [address] [address] [address] Rigo Julio WBC 5.5 103/ul Normal 4.0-11.0 [facility] Comment on above: Performed By: #### H FPFCBC #### [facility] [address] [place] [address] Dr. Rigo Julio [facility] GLYCOHEMOGLOBIN A1Con 11-27-2021 Glucose [Mass/Vol] 123 mg/dL Normal [facility] Comment on above: Performed By: #### H FPFA1C #### [facility] [address] [place] [address] Dr. Rigo Julio HbA1c (Bld) [Mass fraction] 5.9 % Normal <=6.0 [facility] Comment on above: Performed By: #### H FPFA1C #### [facility] [address] [place] [address] Dr. [facility]igo [facility]22 Albumin [Mass/Vol] 4.2 g/dL Normal 3.5-5.0 [facility] Comment on above: Performed By: #### L IPID, CMP #### [facility] [address] [address] [address] Rigo Julio Albumin/Globulin [Mass ratio] 1.2 {ratio} Normal [facility] Comment on above: Performed By: #### L IPID, CMP #### [facility] [address] [address] [address] Rigo Julio ALP [Catalytic activity/Vol] 81 U/L Normal 38-126 [facility] Comment on above: Performed By: #### L IPID, CMP #### [facility] [address] [address] [address] Rigo Julio ALT [Catalytic activity/Vol] 23 U/L Normal 9-52 [facility] Comment on above: Performed By: #### L IPID, CMP #### [facility] [address] [address] [address] Rigo Julio AST [Catalytic activity/Vol] 18 U/L Normal 14-36 [facility] Comment on above: Performed By: #### L IPID, CMP #### [facility] [address] [place] [address] Dr. Rigo Julio Bilirubin [Mass/Vol] 0.3 mg/dL Normal 0.2-1.3 [facility] Comment on above: Performed By: #### L IPID, CMP #### [facility] [address] [place] [address] Dr. Rigo Julio Calcium [Mass/Vol] 9.2 mg/dL Normal 8.4-10.2 [facility] Comment on above: Performed By: #### L IPID, CMP #### [facility] [address] [place] [address] Dr. Rigo Julio Chloride [Moles/Vol] 102 mmol/L Normal 98-107 [facility] Comment on above: Performed By: #### L IPID, CMP #### [facility] [address] [place] [address] Dr. Rigo Julio CHOL-HDL RATIO NORM SEE BELOW Normal [facility] Comment on above: Result Comment: 3.3 - 4.4 LOW RISK 4.4 - 7.1 AVERAGE RISK 7.1 - 11.0 MODERATE RISK >11.0 HIGH RISK Performed By: #### L IPID, CMP #### [facility] [address] [place] [address] Dr. Rigo Julio Cholesterol [Mass/Vol] 220 mg/dL Critically high <=200 [facility] Comment on above: Performed By: #### L IPID, CMP #### [facility] [address] [place] [address] Dr. Rigo Julio Cholesterol in HDL [Mass/Vol] 54 mg/dL Normal [facility] Comment on above: Performed By: #### L IPID, CMP #### [facility] [address] [place] [address] Dr. Rigo Julio Cholesterol in LDL [Mass/Vol] 141.6 mg/dL Normal [facility] Comment on above: Performed By: #### L IPID, CMP #### [facility] [address] [place] [address] Dr. Rigo Julio Cholesterol.total/Cho lesterol in HDL [Mass ratio] 4.1 {ratio} Normal [facility] Comment on above: Performed By: #### L IPID, CMP #### [facility] [address] [place] [address] Dr. Rigo Julio CO2 [Moles/Vol] 28.4 mmol/L Normal 22.0-30.0 [facility] Comment on above: Performed By: #### L IPID, CMP #### [facility] [address] [place] [address] Dr. Rigo Julio Creatinine [Mass/Vol] 0.84 mg/dL Normal 0.52-1.04 [facility] Comment on above: Performed By: #### L IPID, CMP #### [facility] [address] [place] [address] Dr. Rigo Julio Globulin (S) [Mass/Vol] 3.6 g/dL Normal [facility] Comment on above: Performed By: #### L IPID, CMP #### [facility] [address] [place] [address] Dr. Rigo Julio Glucose [Mass/Vol] 103 mg/dL Normal 74-106 [facility] Comment on above: Performed By: #### L IPID, CMP #### [facility] [address] [place] [address] Dr. Rigo Julio HDL NORMAL > or = 60 mg/dl - LO W CARDIOVASCULAR RISK <40 mg/dl - HIGH CARDIOVASCULAR RISK Normal [facility] Comment on above: Performed By: #### L IPID, CMP #### [facility] [address] [address] [address] Rigo Julio LDL CALC NORMAL SEE BELOW Normal [facility] Comment on above: Result Comment: <100 mg/dl OPTIMAL 100 - 129 mg/dl NEAR OR ABOVE OPTIMAL 130 - 159 mg/dl BORDERLINE HIGH 160 - 189 mg/dl HIGH >190 mg/dl VERY HIGH Performed By: #### L IPID, CMP #### [facility] [address] [address] [address] Rigo Julio Potassium [Moles/Vol] 5.6 mmol/L Critically high 3.4-5.0 [facility] Comment on above: Performed By: #### L IPID, CMP #### [facility] [address] [address] [address] Rigo Julio Protein [Mass/Vol] 7.8 g/dL Normal 6.1-8.2 [facility] Comment on above: Performed By: #### L IPID, CMP #### [facility] [address] [place] [address] Dr. Rigo Julio Sodium [Moles/Vol] 138 mmol/L Normal 137-145 [facility] Comment on above: Performed By: #### L IPID, CMP #### [facility] [address] [place] [address] Dr. Rigo Julio Triglyceride [Mass/Vol] 122 mg/dL Normal <=150 [facility] Comment on above: Performed By: #### L IPID, CMP #### [facility] [address] [place] [address] Dr. Rigo Julio TSH 1.542 uIU/mL Normal 0.470-4.680 [facility] Comment on above: Performed By: #### L IPID, CMP #### [facility] [address] [place] [address] Dr. Rigo Julio Urea nitrogen [Mass/Vol] 10.0 mg/dL Normal 7.0-17.0 [facility] Comment on above: Performed By: #### L IPID, CMP #### [facility] [address] [place] [address] Dr. Rigo Julio Urea nitrogen/Creatinine [Mass ratio] 11.9 mg/mg Normal [facility] Comment on above: Performed By: #### L IPID, CMP #### [facility] [address] [address] [address] Rigo Julio VLDL CALC 24.4 mg/dL Normal [facility] Comment on above: Performed By: #### L IPID, CMP #### [facility] [address] [place], [place] [address] Dr. Rigo Julio POC GLUCOSE LABon 04-06-2021 Glucose [Mass/Vol] 112 mg/dL High 70-100 [facility] Comment on above: Performed By: #### 3 1595 #### [facility] [address] [place] [address], [facility] Glucose [Mass/Vol] 109 mg/dL High 70-100 [facility] Comment on above: Performed By: #### 5 0103 #### [facility] [address] [place] [id number], [facility] BASIC METABOLIC PANELon 03-20 Calcium [Mass/Vol] 8.3 mg/dL Low 8.6-10.3 [facility] Comment on above: Order Comment: No: D o not add to previous draw Performed By: #### [id number] #### [facility] [address] [place] [address], [place] Chloride [Moles/Vol] 96 mmol/L Low 98-107 [facility] Comment on above: Order Comment: No: D o not add to previous draw Performed By: #### 8 [id number] #### [facility] [address] [place] [address], [place] CO2 [Moles/Vol] 29 mmol/L Normal 21-31 [facility] Comment on above: Order Comment: No: D o not add to previous draw Performed By: #### 8 [id number] #### [facility] [address] [place] [address], [place] Creatinine [Mass/Vol] 0.60 mg/dL Normal 0.60-1.20 [facility] Comment on above: Order Comment: No: D o not add to previous draw Performed By: #### 8 [id number] #### [facility] [address] [place] [address], [place] GFR/1.73 sq M.predicted among blacks MDRD (S/P/Bld) [Vol rate/Area] mL/min/{1.73_m2} Normal >60 [facility] Comment on above: Order Comment: No: D o not add to previous draw Performed By: #### 8 [id number] #### [facility] [address] [place] [address], [place] GFR/1.73 sq M.predicted among non-blacks MDRD (S/P/Bld) [Vol rate/Area] mL/min/{1.73_m2} Normal >60 [facility] Comment on above: Order Comment: No: D o not add to previous draw Performed By: #### 8 [id number] #### [facility] [address] [place] [address], [place] Glucose [Mass/Vol] 100 mg/dL Normal 70-100 [facility] Comment on above: Order Comment: No: D o not add to previous draw Performed By: #### 8 [id number] #### [facility] [address] [place] [address], [place] Potassium [Moles/Vol] 4.2 mmol/L Normal 3.5-5.1 [facility] Comment on above: Order Comment: No: D o not add to previous draw Performed By: #### 8 [id number] #### [facility] [address] [place] [address], [place] Sodium [Moles/Vol] 132 mmol/L Low 136-145 [facility] Comment on above: Order Comment: No: D o not add to previous draw Performed By: #### 8 [id number] #### [facility] [address] [place] [address], [facility] Urea nitrogen [Mass/Vol] 13 mg/dL Normal 7-25 [facility] Comment on above: Order Comment: No: D o not add to previous draw Performed By: #### 8 [id number] #### [facility] [address] [place] [address], [facility] CBC COMPLETE BLOOD COUNTon 0 - Erythrocyte distribution width (RBC) [Ratio] 14.6 % Normal 11.5-15.0 [facility] Comment on above: Order Comment: No: D o not add to previous draw Performed By: #### 8 [id number] #### [facility] [address] [place] [id number], [facility] Hematocrit (Bld) [Volume fraction] 30.4 % Low 36.0-45.0 [facility] Comment on above: Order Comment: No: D o not add to previous draw Performed By: #### 8 [id number] #### [facility] [address] [place] [address], [facility] Hemoglobin (Bld) [Mass/Vol] 10.2 g/dL Low 12.0-15.0 [facility] Comment on above: Order Comment: No: D o not add to previous draw Performed By: #### 8 [id number] #### [facility] [address] [place] [address], [facility] MCH (RBC) [Entitic mass] 30.5 pg Normal 27.0-33.0 [facility] Comment on above: Order Comment: No: D o not add to previous draw Performed By: #### 8 [id number] #### [facility] [address] [place] [id number], [facility] MCHC (RBC) [Mass/Vol] 33.6 g/dL Normal 32.0-35.0 [facility] Comment on above: Order Comment: No: D o not add to previous draw Performed By: #### 8 [id number] #### [facility] [address] [place] [address], [facility] MCV (RBC) [Entitic vol] 91.0 fL Normal 82.0-98.0 [facility] Comment on above: Order Comment: No: D o not add to previous draw Performed By: #### 8 [id number] #### [facility] [address] [place] [address], [facility] Nucleated RBC/100 WBC (Bld) [Ratio] 0 % Normal 0-0 [facility] Comment on above: Order Comment: No: D o not add to previous draw Performed By: #### 8 [id number] #### [facility] [address] [place] [address], [facility] PLAT CNT 124 10*3/uL Low 150-400 [facility] Comment on above: Order Comment: No: D o not add to previous draw Performed By: #### 8 [id number] #### [facility] [address] [facility] [place] [address], [facility] RBC (Bld) [#/Vol] 3.34 10*6/uL Low 3.80-5.00 [facility] Comment on above: Order Comment: No: D o not add to previous draw Performed By: #### 8 [id number] #### [facility] [address] [place] [address], [facility] WBC (Bld) [#/Vol] 13.12 10*3/uL High 4.00-10.60 [facility] Comment on above: Order Comment: No: D o not add to previous draw Performed By: #### 8 [id number] #### [facility] [address] [place] [address], [facility] MAGNESIUM BLOODon 04-05-2021 Magnesium [Mass/Vol] 1.8 mg/dL Low 1.9-2.7 [facility] Comment on above: Order Comment: No: D o not add to previous draw Performed By: #### 8 [id number] #### [facility] [address] [place] [address], [place] POC GLUCOSE LABon 04-05-2021 Glucose [Mass/Vol] 144 mg/dL High 70-100 [facility] Comment on above: Performed By: #### 3 1595 #### [facility] [address] [place] [address], [place] Glucose [Mass/Vol] 117 mg/dL High 70-100 [facility] Comment on above: Performed By: #### 5 0103 #### [facility] [address] [place] [address], [place] Glucose [Mass/Vol] 125 mg/dL High 70-100 [facility] Comment on above: Performed By: #### 5 0103 #### [facility] [address] [facility] [place] [address], [place] Glucose [Mass/Vol] 108 mg/dL High 70-100 [facility] Comment on above: Performed By: #### 5 0103 #### [facility] [address] [address], [place] Glucose [Mass/Vol] 116 mg/dL High 70-100 [facility] Comment on above: Performed By: #### 5 0103 #### [facility] [address] [facility] [place] [address], [facility] PORTABLE CHEST 1 VIEWon 03-20 PORTABLE CHEST 1 VIEW [facility] [address] [place] [address] Patient Name: AMBAR BREWSTER : 1950 Sex: F Age: Race: White Pt. Location: [place] [address] Patient Status: I Ordered Date: 04/05/2021 5:00:00 AM Completed Date: 04/05/2021 08:01 AM Requesting Provider: FELISA HYATT Attending Provider: FELISA HYATT Report Copy To: Signs & Symptoms: Post OP History: Comments: evaluate for Atelectasis Exam: PORTABLE CHEST 1 VIEW PORTABLE CHEST 1 VIEW 04/05/2021 8:01 AM CLINICAL INDICATIONS: Post OP TECHNOLOGIST COMMENTS: shortness of breath QUESTION FOR THE RADIOLOGIST: evaluate for Atelectasis PROTOCOL: AP(PA) view was obtained. COMPARISON: April 04 FINDINGS: Sternal wires again seen The heart and mediastinum looks similar to before Right central line removed Mild hyperinflation Left lower lobe atelectasis and airspace disease and effusion looks similar to before Right lung relatively well aerated Some nonspecific pleural density in the left apex perhaps scarring and blebs. No significant pneumothorax otherwise seen IMPRESSION: Residual left lower lobe atelectasis and airspace disease perhaps related to pneumonia with small effusion Follow-up imaging suggested to show clearing when appropriate. Consider CT if persistent or worsening chest x-ray findings or symptoms despite appropriate therapy Electronically signed: Pam Ennis. Transcribed by: [email or web address], User Resident: Electronically Signed by: PAM ENNIS @ 04/05/2021 08:58 AM Normal [facility] Comment on above: Order Comment: evalu ate for Atelectasis BASIC METABOLIC PANELon - Calcium [Mass/Vol] 8.6 mg/dL Normal 8.6-10.3 [facility] Comment on above: Order Comment: No: D o not add to previous draw Performed By: #### 3 0965 #### [facility] [address] [place] [address], [place] Chloride [Moles/Vol] 99 mmol/L Normal 98-107 [facility] Comment on above: Order Comment: No: D o not add to previous draw Performed By: #### 3 0965 #### [facility] [address] [place] [address], [place] CO2 [Moles/Vol] 25 mmol/L Normal 21-31 [facility] Comment on above: Order Comment: No: D o not add to previous draw Performed By: #### 3 0965 #### [facility] [address] [place] [address], [place] Creatinine [Mass/Vol] 0.60 mg/dL Normal 0.60-1.20 [facility] Comment on above: Order Comment: No: D o not add to previous draw Performed By: #### 3 0965 #### [facility] [address] [place] [address], [place] GFR/1.73 sq M.predicted among blacks MDRD (S/P/Bld) [Vol rate/Area] mL/min/{1.73_m2} Normal >60 [facility] Comment on above: Order Comment: No: D o not add to previous draw Performed By: #### 3 0965 #### [facility] [address] [place] [address], [place] GFR/1.73 sq M.predicted among non-blacks MDRD (S/P/Bld) [Vol rate/Area] mL/min/{1.73_m2} Normal >60 [facility] Comment on above: Order Comment: No: D o not add to previous draw Performed By: #### 3 0965 #### [facility] [address] [place] [address], [place] Glucose [Mass/Vol] 111 mg/dL High 70-100 [facility] Comment on above: Order Comment: No: D o not add to previous draw Performed By: #### 3 0965 #### [facility] [address] [place] [address], [facility] Potassium [Moles/Vol] 4.0 mmol/L Normal 3.5-5.1 [facility] Comment on above: Order Comment: No: D o not add to previous draw Performed By: #### 3 0965 #### [facility] [address] [place] [address], [place] Sodium [Moles/Vol] 130 mmol/L Low 136-145 [facility] Comment on above: Order Comment: No: D o not add to previous draw Performed By: #### 3 0965 #### [facility] [address] [place] [address], [facility] Urea nitrogen [Mass/Vol] 15 mg/dL Normal 7-25 [facility] Comment on above: Order Comment: No: D o not add to previous draw Performed By: #### 3 0965 #### [facility] [address] [place] [address], [facility] CBC COMPLETE BLOOD COUNTon 0 - Erythrocyte distribution width (RBC) [Ratio] 15.7 % High 11.5-15.0 [facility] Comment on above: Order Comment: No: D o not add to previous draw Performed By: #### 8 [id number] #### [facility] [address] [place] [address], [place] Hematocrit (Bld) [Volume fraction] 30.1 % Low 36.0-45.0 [facility] Comment on above: Order Comment: No: D o not add to previous draw Performed By: #### 8 [id number] #### [facility] [address] [place] [address], [place] Hemoglobin (Bld) [Mass/Vol] 10.0 g/dL Low 12.0-15.0 [facility] Comment on above: Order Comment: No: D o not add to previous draw Performed By: #### 8 [id number] #### [facility] [address] [facility] [address], [facility] IMM PLATELET FRAC 5.8 % Normal 0.8-6.3 [facility] Comment on above: Order Comment: No: D o not add to previous draw Performed By: #### 8 [id number] #### [facility] [address] [facility]. [address] MCH (RBC) [Entitic mass] 29.9 pg Normal 27.0-33.0 [facility] Comment on above: Order Comment: No: D o not add to previous draw Performed By: #### 8 [id number] #### [facility] [address] [place] [address], [facility] MCHC (RBC) [Mass/Vol] 33.2 g/dL Normal 32.0-35.0 [facility] Comment on above: Order Comment: No: D o not add to previous draw Performed By: #### 8 [id number] #### [facility] [address] [facility] [place] [address], [facility] MCV (RBC) [Entitic vol] 89.9 fL Normal 82.0-98.0 [facility] Comment on above: Order Comment: No: D o not add to previous draw Performed By: #### 8 [id number] #### [facility] [address] [facility]. [address] Nucleated RBC/100 WBC (Bld) [Ratio] 0 % Normal 0-0 [facility] Comment on above: Order Comment: No: D o not add to previous draw Performed By: #### 8 [id number] #### [facility] [address] [place] [address], [facility] PLAT CNT 119 10*3/uL Low 150-400 [facility] Comment on above: Order Comment: No: D o not add to previous draw Performed By: #### 8 [id number] #### [facility] [address] [place] [address], [place] RBC (Bld) [#/Vol] 3.35 10*6/uL Low 3.80-5.00 [facility] Comment on above: Order Comment: No: D o not add to previous draw Performed By: #### 8 [id number] #### [facility] [address] [place] [address], [place] WBC (Bld) [#/Vol] 16.59 10*3/uL High 4.00-10.60 The [facility] Comment on above: Order Comment: No: D o not add to previous draw Performed By: #### 8 [id number] #### [facility] [address] [place] [address], [facility] MAGNESIUM BLOODon 04-04-2021 Magnesium [Mass/Vol] 1.7 mg/dL Low 1.9-2.7 The [facility] Comment on above: Order Comment: No: D o not add to previous draw Performed By: #### 3 0965 #### [facility] [address] [place] [address], [facility] POC GLUCOSE LABon 04-04-2021 Glucose [Mass/Vol] 183 mg/dL High 70-100 The [facility] Comment on above: Performed By: #### 8 [id number] #### [facility] [address] [place] [address], [place] Glucose [Mass/Vol] 132 mg/dL High 70-100 [facility] Comment on above: Performed By: #### 3 1595 #### [facility] [address] [place] [address], [place] Glucose [Mass/Vol] 104 mg/dL High 70-100 [facility] Comment on above: Performed By: #### 8 [id number] #### [facility] [address] [place] [address], [facility] Glucose [Mass/Vol] 121 mg/dL High 70-100 [facility] Comment on above: Performed By: #### 8 [id number] #### [address] PORTABLE CHEST 1 VIEWon 03-20 PORTABLE CHEST 1 VIEW [facility] Department of Radiology [address] [place] [id number] Patient Name: AMBAR BREWSTER : 1950 Sex: F Age: Race: White Pt. Location: [place] [address] Patient Status: I Ordered Date: 04/04/2021 5:00:00 AM Completed Date: 04/04/2021 06:37 AM Requesting Provider: FELISA HYATT Attending Provider: FELISA HYATT Report Copy To: Signs & Symptoms: Post OP History: Comments: Atelectasis Exam: PORTABLE CHEST 1 VIEW PORTABLE CHEST 1 VIEW 04/04/2021 6:37 AM CLINICAL INDICATIONS: Post OP TECHNOLOGIST COMMENTS: dyspnea post chest tube removal QUESTION FOR THE RADIOLOGIST: Atelectasis PROTOCOL: AP(PA) view was obtained. COMPARISON: April 03, 2021 FINDINGS: The previously described small left-sided pneumothorax is not clearly visible on today's exam. Left-sided pleural effusion and lower lobe consolidation remain. Mild cardiomegaly and sternotomy wires remain. The right lung remains clear. Right-sided jugular sheath remains in place. IMPRESSION: Previously described left apical pneumothorax is less visible today. Electronically signed: Roney Vigil. Transcribed by: [email or web address], User Resident: Electronically Signed by: RONEY VIGIL @ 04/04/2021 06:56 AM Normal [facility] Comment on above: Order Comment: Atele ctasis APTTon 04-03-2021 aPTT Coag (Bld) [Time] 33.2 s Normal 25.0-35.0 [facility] Comment on above: Order Comment: post op day 1No: Do not add to previous draw Result Comment: ALL RESULTS MUST BE INTERPRETED WITH RESPECT TO BLOOD DRAWING ARTIFACT OR DILUTION ERROR OF ANTICOAGULANT AT THE TIME OF SAMPLING. THE APTT SHOULD NOT BE USED TO MONITOR UNFRACTIONATED HEPARIN THERAPY, THIS LABORATORY NO LONGER HAS AN ESTABLISHED THERAPEUTIC RANGE BASED ON THE APTT. IT IS RECOMMENDED THAT THE [facility] - HEPARIN ASSAY (ANTI-XA ACTIVITY) BE USED FOR THIS PURPOSE. Performed By: #### 8 [id number] #### [facility] [address] BASIC METABOLIC PANELon 03-20 Calcium [Mass/Vol] 8.5 mg/dL Low 8.6-10.3 [facility] Comment on above: Order Comment: Check Chest Tube Position, ON ARRIVAL TO CVU Performed By: #### 0 0071, 13249 ####[facility] [place] [address], [facility] Chloride [Moles/Vol] 107 mmol/L Normal 98-107 [facility] Comment on above: Order Comment: Check Chest Tube Position, ON ARRIVAL TO CVU Performed By: #### 0 0071, 74041 ####[facility] [place] [address], [facility] CO2 [Moles/Vol] 26 mmol/L Normal 21-31 The [facility] Comment on above: Order Comment: Check Chest Tube Position, ON ARRIVAL TO CVU Performed By: #### 0 0071, 20333 ####[facility] [place] [address], [facility] Creatinine [Mass/Vol] 0.56 mg/dL Low 0.60-1.20 [facility] Comment on above: Order Comment: Check Chest Tube Position, ON ARRIVAL TO CVU Performed By: #### 0 0071, 90600 ####[facility] [place] [address], [place] GFR/1.73 sq M.predicted among blacks MDRD (S/P/Bld) [Vol rate/Area] mL/min/{1.73_m2} Normal >60 The [facility] Comment on above: Order Comment: Check Chest Tube Position, ON ARRIVAL TO CVU Performed By: #### 0 0071, [id number] ####[facility] [place] [address], [facility] GFR/1.73 sq M.predicted among non-blacks MDRD (S/P/Bld) [Vol rate/Area] mL/min/{1.73_m2} Normal >60 The [facility] Comment on above: Order Comment: Check Chest Tube Position, ON ARRIVAL TO CVU Performed By: #### 0 0071, 68698 ####[facility] [place] [address], [place] Glucose [Mass/Vol] 123 mg/dL High 70-100 [facility] Comment on above: Order Comment: Check Chest Tube Position, ON ARRIVAL TO CVU Performed By: #### 0 0071, 90360 ####[facility] [place] [address], [place] Potassium [Moles/Vol] 4.2 mmol/L Normal 3.5-5.1 The [facility] Comment on above: Order Comment: Check Chest Tube Position, ON ARRIVAL TO CVU Performed By: #### 0 0071, 50513 ####[facility] [place] [address], [place] Sodium [Moles/Vol] 137 mmol/L Normal 136-145 [facility] Comment on above: Order Comment: Check Chest Tube Position, ON ARRIVAL TO CVU Performed By: #### 0 0071, 37818 ####[facility] [place] [address], [facility] Urea nitrogen [Mass/Vol] 12 mg/dL Normal 7-25 The [facility] Comment on above: Order Comment: Check Chest Tube Position, ON ARRIVAL TO CVU Performed By: #### 0 0071, 45537 ####[facility] [place] [address], [facility] CBC COMPLETE BLOOD COUNTon 0 - Erythrocyte distribution width (RBC) [Ratio] 16.4 % High 11.5-15.0 The [facility] Comment on above: Order Comment: post op day 1No: Do not add to previous draw Performed By: #### 8 [id number] #### [facility] [address] [place] [address], [facility] Hematocrit (Bld) [Volume fraction] 32.0 % Low 36.0-45.0 The [facility] Comment on above: Order Comment: post op day 1No: Do not add to previous draw Performed By: #### 8 [id number] #### [facility] [address] [place] [address], [facility] Hemoglobin (Bld) [Mass/Vol] 11.0 g/dL Low 12.0-15.0 The [facility] Comment on above: Order Comment: post op day 1No: Do not add to previous draw Performed By: #### 8 5499 #### [facility] [address] [place] [address], [facility] MCH (RBC) [Entitic mass] 30.0 pg Normal 27.0-33.0 The [facility] Comment on above: Order Comment: post op day 1No: Do not add to previous draw Performed By: #### 8 5499 #### [facility] [address] [place] [address], [facility] MCHC (RBC) [Mass/Vol] 34.4 g/dL Normal 32.0-35.0 The [facility] Comment on above: Order Comment: post op day 1No: Do not add to previous draw Performed By: #### 8 [id number] #### [facility] [address] [place] [address], [place] MCV (RBC) [Entitic vol] 87.2 fL Normal 82.0-98.0 The [facility] Comment on above: Order Comment: post op day 1No: Do not add to previous draw Performed By: #### 8 5499 #### [facility] [address] [address], [facility] Nucleated RBC/100 WBC (Bld) [Ratio] 0 % Normal 0-0 The [facility] Comment on above: Order Comment: post op day 1No: Do not add to previous draw Performed By: #### 8 5499 #### [facility] [address] [place] [id number], [place] PLAT CNT 125 10*3/uL Low 150-400 [facility] Comment on above: Order Comment: post op day 1No: Do not add to previous draw Performed By: #### 8 5499 #### [facility] [address] [place] [address], [place] RBC (Bld) [#/Vol] 3.67 10*6/uL Low 3.80-5.00 [facility] Comment on above: Order Comment: post op day 1No: Do not add to previous draw Performed By: #### 8 5499 #### [facility] [address] [place] [address], [place] WBC (Bld) [#/Vol] 14.47 10*3/uL High 4.00-10.60 The [facility] Comment on above: Order Comment: post op day 1No: Do not add to previous draw Performed By: #### 8 [id number] #### [facility] [address] [place] [address], [facility] COOXIMETRYon 04-03-2021 COHB 2 % Normal The [facility] Comment on above: Performed By: #### 3 0965 #### [facility] [address] [place] [address], [place] METHB 1 % Normal The [facility] Comment on above: Performed By: #### 3 0965 #### [facility] [address] [place] [address], [facility] Oxygen saturation in Blood 70.5 % Normal 65.0-75.0 The [facility] Comment on above: Performed By: #### 3 0965 #### [facility] [address] [place] [address], [facility] THB 11.0 g/dL Normal The [facility] Comment on above: Performed By: #### 3 0965 #### [facility] [address] [place] [address], [facility] LACTATE BLOODon 04-03-2021 Lactate [Moles/Vol] 0.9 mmol/L Normal 0.5-2.2 [facility] Comment on above: Order Comment: Check Chest Tube Position, ON ARRIVAL TO CVU Performed By: #### 1 0054 ####[facility] [facility] [place] [address], [facility] MAGNESIUM BLOODon 04-03-2021 Magnesium [Mass/Vol] 2.2 mg/dL Normal 1.9-2.7 The [facility] Comment on above: Order Comment: Check Chest Tube Position, ON ARRIVAL TO CVU Performed By: #### 0 0071, 20155 ####[facility] [place] [address], [facility] Operative Reporton Operative Report MR#: [id number] I [facility] Pt. Name: Ambar Brewster Room #: NAYE [id number] Discharge Date: Birthdate: 1950 OPERATIVE REPORT DATE OF SURGERY: 04/02/2021 SURGEON: Felisa Hyatt MD PREOPERATIVE DIAGNOSIS: Coronary artery disease. POSTOPERATIVE DIAGNOSIS: Coronary artery disease. OPERATION: 1. Coronary artery bypass grafting x5, CAT to LAD, saphenous vein graft to diagonal branch, saphenous vein graft to obtuse marginal branch, saphenous vein graft to posterior descending artery and right posterolateral ventricular branches. 2. Extra complexity because of very fragile aorta, requiring saphenous vein patch repair of aortotomy. 3. Endoscopic vein harvesting of the left greater saphenous vein. CHART CHANGER: Ernestina. ANESTHESIA: General with endotracheal intubation. ANESTHESIOLOGIST: Zita Wilkinson MD. CARDIOPULMONARY BYPASS TIME: 105 minutes. CROSS-CLAMP TIME: 91 minutes. INDICATIONS: This is a 70-year-old female with severe three-vessel coronary artery disease and unstable angina, was taken to the operating room electively for the above procedure. Intraoperatively, the patient was noted to have very fragile aorta and one of the arteriotomy sites had to be repaired with the saphenous vein patch. PROCEDURE IN DETAIL: The patient was brought to the operating room and prepped and draped in the routine fashion. Left greater saphenous vein was harvested endoscopically. Chest was entered through median sternotomy and left internal mammary artery was harvested under direct vision using pedicle technique. The patient was heparinized. The internal mammary artery was divided and prepared for later use. Pericardium was opened and ascending aorta was cannulated with an 18-[place] Opti cannula using Seldinger technique. This was because the aorta was noted to be very thin and kind of fragile. Dual stage single right atrial cannula was used for venous drainage. Antegrade cardioplegic catheter was placed in the ascending aorta. Cardiopulmonary bypass was initiated. Cross-clamp was applied. Cold blood antegrade cardioplegia was given every 15-20 minutes or whenever myocardial temperature was 20 degrees. Lateral surface of the heart was exposed and the 1st obtuse marginal branch was identified. This was the one with the proximal lesion. An arteriotomy was made and a very long spatulated anastomosis works and it was constructed along the very diseased obtuse marginal branch. This was done using 7-0 Prolene running stitch. Upon completion of this anastomosis, there was excellent flow through the graft. The vein graft anastomosed to the ascending aorta. An aortotomy was made. However, with gentle pressure, the aortotomy tore almost a centimeter long and it was clear that this site in aorta was very weak and was not suitable for constructed proximal anastomosis. Saphenous vein branch was used to repair the site on the aorta for hemostasis to keep it tension free. This was done using 6-0 Prolene. Straight Bio glue was poured around it and then we made a small hole in the proximal aorta away from the site for the proximal anastomosis to the vein graft. This was done using 6-0 Prolene running stitch. Upon completion of this anastomosis, there was excellent flow through the graft. Next, the diagonal branch was exposed and an arteriotomy was made. The vein graft was anastomosed in end-to-side fashion using 7-0 Prolene running stitch. Upon completion of this anastomosis, there was excellent flow through the graft. The vein graft anastomosed to the ascending aorta away from the previous 2 anastomoses using 6-0 Prolene running stitch. Finally, attention focused to the inferior surface of the heart. Right posterolateral ventricular branch was exposed. An arteriotomy was made. An end-to-side anastomosis was constructed using 7-0 Prolene running stitch. Upon completion of this anastomosis, there was excellent flow through the graft. The same vein graft was brought next to the posterior descending artery and a satf-yi-[id number] anastomosis was constructed in a cruciate fashion using 7-0 Prolene running stitch. Upon completion of this anastomosis, there was excellent flow through the graft. The vein graft anastomosed to the ascending aorta and from the other anastomoses using 6-0 Prolene running stitch. Finally, attention was focused to the LAD, was exposed in its mid to distal 3rd. An arteriotomy was made. The CAT was anastomosed in end-to-side fashion using 8-0 Prolene running stitch. Upon completion of this anastomosis, a bulldog clamp was released and blood flow was resumed through the mammary graft. The patient was placed in a Trendelenburg position. The cross-clamp was released. Aortic root vent was turned on. Ventricular and atrial pacing wires were placed and the patient was cardioverted, and AV paced was short while afterwards patient p (more content not included)... Normal The [facility] POC GLUCOSE LABon 04-03-2021 Glucose [Mass/Vol] 133 mg/dL High 70-100 [facility] Comment on above: Performed By: #### 3 1595 #### [facility] [address] [place] [address], [place] Glucose [Mass/Vol] 112 mg/dL High 70-100 [facility] Comment on above: Performed By: #### 3 1595 #### [facility] [address] [place] [address], [place] Glucose [Mass/Vol] 120 mg/dL High 70-100 [facility] Comment on above: Performed By: #### 8 5499 #### [facility] [address] [place] [address], [place] Glucose [Mass/Vol] 123 mg/dL High 70-100 [facility] Comment on above: Performed By: #### 3 1595 #### [facility] [address] [place] [address], [place] Glucose [Mass/Vol] 105 mg/dL High 70-100 [facility] Comment on above: Performed By: #### 8 5499 #### [facility] [address] [place] [address], [place] Glucose [Mass/Vol] 127 mg/dL High 70-100 [facility] Comment on above: Performed By: #### 3 1595 #### [facility] [address] [place] [address], [place] Glucose [Mass/Vol] 154 mg/dL High 70-100 [facility] Comment on above: Performed By: #### 3 1595 #### [facility] [address] [place] [address], [place] Glucose [Mass/Vol] 149 mg/dL High 70-100 [facility] Comment on above: Performed By: #### 3 1595 #### [address] [id number] PORTABLE CHEST 1 VIEWon 03-20 PORTABLE CHEST 1 VIEW [facility] Department [facility] Radiology [address] [place] [phone] Patient Name: AMBAR BREWSTER : 1950 Sex: F Age: Race: White Pt. Location: [place] [address] Patient Status: I Ordered Date: 04/03/2021 5:30:00 PM Completed Date: 04/03/2021 06:32 PM Requesting Provider: FELISA HYATT Attending Provider: FELISA HYATT Report Copy To: Signs & Symptoms: Post Chest Tube Removal History: Comments: evaluate for Pneumothorax Exam: PORTABLE CHEST 1 VIEW PORTABLE CHEST 1 VIEW 04/03/2021 6:32 PM CLINICAL INDICATIONS: Post Chest Tube Removal TECHNOLOGIST COMMENTS: Post Chest Tube Removal from mediastina and left side QUESTION FOR THE RADIOLOGIST: evaluate for Pneumothorax PROTOCOL: AP(PA) view was obtained. COMPARISON: CXR, 04/03/2021 FINDINGS: Changes of median sternotomy. Removal of previously seen [place]-Ayan catheter, mediastinal drain, left basilar chest tube. Stable cardiomediastinal silhouette. Infrahilar atelectasis, left more so than right, with trace effusions. Small suspected left apical pneumothorax, 5-6 mm, new from prior IMPRESSION: 1. Small left apical pneumothorax after chest tube removal. 2. Trace effusions and atelectasis. Emerging retrocardiac consolidation not excluded in appropriate clinical context. Above findings were discussed via telephone with Flory Ashton RN at the time of interpretation (04/03/2021 7:16 PM) by Dr. Denise Patel. Electronically signed: DENISE PATEL. Transcribed by: [email or web address], User Resident: Electronically Signed by: DENISE PATEL @ 04/03/2021 07:17 PM Normal The [facility] Comment on above: Order Comment: evalu ate for Pneumothorax PORTABLE CHEST 1 VIEW [facility] [address] [place] [id number] Patient Name: AMBAR BREWSTER : 1950 Sex: F Age: Race: White Pt. Location: [place] [address] Patient Status: I Ordered Date: 04/03/2021 7:00:00 AM Completed Date: 04/03/2021 07:28 AM Requesting Provider: FELISA HYATT Attending Provider: FELISA HYATT Report Copy To: Signs & Symptoms: Post CABG History: Comments: evaluate Chest Tube Position Exam: PORTABLE CHEST 1 VIEW PORTABLE CHEST 1 VIEW 04/03/2021 7:28 AM CLINICAL INDICATIONS: Post CABG TECHNOLOGIST COMMENTS: evaluate Chest Tube Position QUESTION FOR THE RADIOLOGIST: evaluate Chest Tube Position PROTOCOL: AP(PA) view was obtained. COMPARISON: April 02, 2021. FINDINGS: Endotracheal tube and NG tube have been removed, [place]-Ayan catheter tip remains in the pulmonary outflow tract. Mediastinal and left-sided chest tubes remain no pneumothorax identified. Minimal bibasilar atelectasis suggested, otherwise lungs IMPRESSION: Status post extubation. Minimal atelectasis over both lung bases. No change in chest tubes. Electronically signed: Roney Vigil. Transcribed by: [email or web address], User Resident: Electronically Signed by: RONEY VIGIL @ 04/03/2021 09:03 AM Normal [facility] Comment on above: Order Comment: evalu ate Chest Tube Position PROTHROMBIN TIMEon 1 INR Coag (PPP) [Relative time] 1.33 {INR} High 0.91-1.16 The [facility] Comment on above: Order Comment: post op day 1No: Do not add to previous draw Result Comment: ACCC P RECOMMENDED INR FOR WARFARIN THERAPY -------- ------- CONDITION INR PROPHYLAXIS OF VENOUS THROMBOSIS 2-3 (HIGH-RISK SURGERY) TREATMENT OF VENOUS THROMBOSIS 2-3 TREATMENT OF PULMONARY EMBOLISM 2-3 PREVENTION OF SYSTEMIC EMBOLISM: 2-3 ACUTE MYOCARDIAL INFARCTION TISSUE HEART VALVES VALVULAR HEART DISEASE ATRIAL FIBRILLATION RECURRENT SYSTEMIC EMBOLISM MECHANICAL HEART VALVE 2.5-3.5 FROM: ORAL ANTICOAGULANTS. MECHANISM OF ACTION, CLINICAL EFFECTIVENESS, AND OPTIMAL THERAPEUTIC RANGE. CHEST 1995;108:[id number]. Performed By: #### 8 5499 #### [address] PT Coag (PPP) [Time] 16.5 s High 12.3-14.8 The [facility] Comment on above: Order Comment: post op day 1No: Do not add to previous draw Result Comment: ALL RESULTS MUST BE INTERPRETED WITH RESPECT TO BLOOD DRAWING ARTIFACT OR DILUTION ERROR OF ANTICOAGULANT AT THE TIME OF SAMPLING. Performed By: #### 8 [id number] #### [facility] [address] [place] [address], [place] ACTIVATED CLOTTING TIMEon ACTIVATED CLOTTING TIME 121 sec Normal 82-152 The [facility] Comment on above: Performed By: #### 8 [id number] #### [facility] [address] [place] [address], [place] ACTIVATED CLOTTING TIME 126 sec Normal 82-152 The [facility] Comment on above: Performed By: #### 8 5499 #### [facility] [address] [place] [address], [place] ACTIVATED CLOTTING TIME 132 sec Normal 82-152 The [facility] Comment on above: Performed By: #### 3 0739 #### [facility] [address] [place] [address], [place] ACTIVATED CLOTTING TIME 655 sec High 82-152 The [facility] Comment on above: Performed By: #### 3 1977 #### [facility] [address] [place] [address], [place] ACTIVATED CLOTTING TIME 484 sec High 82-152 [facility] Comment on above: Performed By: #### 3 1977 #### [facility] [facility] [address] [place] [address], [place] ACTIVATED CLOTTING TIME 599 sec High 82-152 [facility] Comment on above: Performed By: #### 8 [id number] #### [facility] [address] [place] [address], [place] ACTIVATED CLOTTING TIME 694 sec High 82-152 [facility] Comment on above: Performed By: #### 8 [id number] #### [facility] [address] [place] [address], [place] ACTIVATED CLOTTING TIME 484 sec High 82-152 [facility] Comment on above: Performed By: #### 8 [id number] #### [facility] [address] [place] [address], [facility] ACTIVATED CLOTTING TIME 416 sec High 82-152 [facility] Comment on above: Performed By: #### 3 1976 #### [facility] [address] [place] [address], [facility] ACTIVATED CLOTTING TIME 121 sec Normal 82-152 [facility] Comment on above: Performed By: #### 3 1976 #### [facility] [address] [place] [address], [facility] APTTon 04-02-2021 aPTT Coag (Bld) [Time] 32.6 s Normal 25.0-35.0 [facility] Comment on above: Order Comment: No: D o not add to previous draw Result Comment: ALL RESULTS MUST BE INTERPRETED WITH RESPECT TO BLOOD DRAWING ARTIFACT OR DILUTION ERROR OF ANTICOAGULANT AT THE TIME OF SAMPLING. THE APTT SHOULD NOT BE USED TO MONITOR UNFRACTIONATED HEPARIN THERAPY, THIS LABORATORY NO LONGER HAS AN ESTABLISHED THERAPEUTIC RANGE BASED ON THE APTT. IT IS RECOMMENDED THAT THE [facility] - HEPARIN ASSAY (ANTI-XA ACTIVITY) BE USED FOR THIS PURPOSE. Performed By: #### 8 [id number] #### [facility] [address] [place] [address], [facility] aPTT Coag (Bld) [Time] 43.1 s High 25.0-35.0 [facility] Comment on above: Result Comment: ALL RESULTS MUST BE INTERPRETED WITH RESPECT TO BLOOD DRAWING ARTIFACT OR DILUTION ERROR OF ANTICOAGULANT AT THE TIME OF SAMPLING. THE APTT SHOULD NOT BE USED TO MONITOR UNFRACTIONATED HEPARIN THERAPY, THIS LABORATORY NO LONGER HAS AN ESTABLISHED THERAPEUTIC RANGE BASED ON THE APTT. IT IS RECOMMENDED THAT THE [facility] - HEPARIN ASSAY (ANTI-XA ACTIVITY) BE USED FOR THIS PURPOSE. Performed By: #### 8 [id number] #### [facility] [address] ARTERIAL BLOOD GAS WITH ICAo n 04-02-2021 BASE EXCESS -5 mmol/L Low -2-3 The [facility] Comment on above: Performed By: #### 3 0965 #### [facility] [address] [place] [address], [facility] BILEVEL 5 Normal [facility] Comment on above: Performed By: #### 3 0965 #### [facility] [address] [place] [address], [place] DELIVERY SYSTEMS MV Normal [facility] Comment on above: Performed By: #### 3 0965 #### [facility] [address] [place] [address], [place] FIO2 40 % Normal [facility] Comment on above: Performed By: #### 3 0965 #### [facility] [address] [place] [address], [place] HCO3 (Bld) [Moles/Vol] 20 mmol/L Low 21-28 [facility] Comment on above: Performed By: #### 3 0965 #### [facility] [address] [place] [address], [place] IONIZED CALCIUM 1.28 mmol/L Normal 1.13-1.32 [facility] Comment on above: Performed By: #### 3 0965 #### [facility] [address] [place] [address], [place] MIN VOLUME 7.1 Normal [facility] Comment on above: Performed By: #### 3 0965 #### [facility] [address] [place] [address], [place] MODALITY SPONT Normal [facility] Comment on above: Performed By: #### 3 0965 #### [facility] [address] [place] [address], [facility] Oxygen (Bld) [Partial pressure] 156 mm[Hg] Critically high 83-108 [facility] Comment on above: Performed By: #### 3 0965 #### [facility] [address] [place] [address], [facility] Oxygen saturation in Blood 97.2 % High 94.0-97.0 [facility] Comment on above: Performed By: #### 3 0965 #### [facility] [address] [place] [address], [facility] PCO2 37 mmHg Normal 35-45 [facility] Comment on above: Performed By: #### 3 0965 #### [facility] [address] [place] [address], [facility] PEEP 6.0 CMH20 Normal [facility] Comment on above: Performed By: #### 3 0965 #### [facility] [address] [place] [address], [facility] pH (Bld) 7.34 [pH] Low 7.35-7.45 [facility] Comment on above: Performed By: #### 3 0965 #### [facility] [address] [facility] [place] [address], [facility] BASE EXCESS -5 mmol/L Low -2-3 [facility] Comment on above: Order Comment: on ar rival to CVU Performed By: #### 8 [id number] #### [facility] [address] [place] [address], [facility] DELIVERY SYSTEMS MV Normal [facility] Comment on above: Order Comment: on ar rival to CVU Performed By: #### 8 [id number] #### [facility] [address] [place] [address], [facility] FIO2 40 % Normal [facility] Comment on above: Order Comment: on ar rival to CVU Performed By: #### 8 [id number] #### [facility] [address] [place] [address], [facility] HCO3 (Bld) [Moles/Vol] 19 mmol/L Low 21-28 [facility] Comment on above: Order Comment: on ar rival to CVU Performed By: #### 8 [id number] #### [facility] [address] [place] [address], [facility] IONIZED CALCIUM 1.38 mmol/L High 1.13-1.32 [facility] Comment on above: Order Comment: on ar rival to CVU Performed By: #### 8 [id number] #### [facility] [address] [place] [address], [facility] MIN VOLUME 8.0 Normal [facility] Comment on above: Order Comment: on ar rival to CVU Performed By: #### 8 [id number] #### [facility] [address] [place] [address], [facility] MODALITY SIMV Normal [facility] Comment on above: Order Comment: on ar rival to CVU Performed By: #### 8 [id number] #### [facility] [address] [place] [address], [facility] Oxygen (Bld) [Partial pressure] 192 mm[Hg] Critically high 83-108 [facility] Comment on above: Order Comment: on ar rival to CVU Performed By: #### 8 [id number] #### [facility] [address] [place] [address], [facility] Oxygen saturation in Blood 97.6 % High 94.0-97.0 [facility] Comment on above: Order Comment: on ar rival to CVU Performed By: #### 8 [id number] #### [facility] [address] [place] [address], [facility] PCO2 31 mmHg Low 35-45 [facility] Comment on above: Order Comment: on ar rival to CVU Performed By: #### 8 [id number] #### [facility] [address] [place] [address], [place] PEEP 5.0 CMH20 Normal [facility] Comment on above: Order Comment: on ar rival to CVU Performed By: #### 8 [id number] #### [facility] [address] [place] [address], [place] pH (Bld) 7.39 [pH] Normal 7.35-7.45 [facility] Comment on above: Order Comment: on ar rival to CVU Performed By: #### 8 [id number] #### [facility] [address] [place] [address], [place] PRESSURE SUPPORT 8 Normal [facility] Comment on above: Order Comment: on ar rival to CVU Performed By: #### 8 [id number] #### [facility] [address] [place] [address], [place] Respiratory rate 14 /min Normal [facility] Comment on above: Order Comment: on ar rival to CVU Performed By: #### 8 [id number] #### [facility] [address] [place] [address], [facility] TIDAL VOLUME (VT) CC 450 Normal [facility] Comment on above: Order Comment: on ar rival to CVU Performed By: #### 8 [id number] #### [facility] [address] [place] [address], [place] BASIC METABOLIC PANELon 07- Calcium [Mass/Vol] 8.8 mg/dL Normal 8.6-10.3 The [facility] Comment on above: Order Comment: Check Chest Tube Position, ON ARRIVAL TO CVU Performed By: #### 0 0071, 92139, 31825 ####[facility] [place] [address], [place] Chloride [Moles/Vol] 108 mmol/L High 98-107 [facility] Comment on above: Order Comment: Check Chest Tube Position, ON ARRIVAL TO CVU Performed By: #### 0 0071, 05829, 04835 ####[facility] [place] [address], [place] CO2 [Moles/Vol] 25 mmol/L Normal 21-31 [facility] Comment on above: Order Comment: Check Chest Tube Position, ON ARRIVAL TO CVU Performed By: #### 0 0071, 80013, 68830 ####[facility] [place] [address], [facility] Creatinine [Mass/Vol] 0.57 mg/dL Low 0.60-1.20 [facility] Comment on above: Order Comment: Check Chest Tube Position, ON ARRIVAL TO CVU Performed By: #### 0 0071, 54217, 67328 ####[facility] [place] [address], [facility] GFR/1.73 sq M.predicted among blacks MDRD (S/P/Bld) [Vol rate/Area] mL/min/{1.73_m2} Normal >60 The [facility] Comment on above: Order Comment: Check Chest Tube Position, ON ARRIVAL TO CVU Performed By: #### 0 0071, 78066, 61624 ####[facility] [place] [address], [facility] GFR/1.73 sq M.predicted among non-blacks MDRD (S/P/Bld) [Vol rate/Area] mL/min/{1.73_m2} Normal >60 The [facility] Comment on above: Order Comment: Check Chest Tube Position, ON ARRIVAL TO CVU Performed By: #### 0 0071, 37063, 11467 ####[facility] [place] [address], [place] Glucose [Mass/Vol] 164 mg/dL High 70-100 [facility] Comment on above: Order Comment: Check Chest Tube Position, ON ARRIVAL TO CVU Performed By: #### 0 0071, 24993, 86493 ####[facility] [place] [address], [place] Potassium [Moles/Vol] 3.8 mmol/L Normal 3.5-5.1 [facility] Comment on above: Order Comment: Check Chest Tube Position, ON ARRIVAL TO CVU Performed By: #### 0 0071, 54362, 61959 ####[facility] [place] [address], [facility] Sodium [Moles/Vol] 139 mmol/L Normal 136-145 [facility] Comment on above: Order Comment: Check Chest Tube Position, ON ARRIVAL TO CVU Performed By: #### 0 0071, 71540, 88225 ####[facility] [place] [address], [facility] Urea nitrogen [Mass/Vol] 10 mg/dL Normal 7-25 [facility] Comment on above: Order Comment: Check Chest Tube Position, ON ARRIVAL TO CVU Performed By: #### 0 0071, 41392, 08437 ####[facility] [place] [address], [facility] Calcium [Mass/Vol] 9.4 mg/dL Normal 8.6-10.3 [facility] Comment on above: Performed By: #### 0 0071, 14594 ####[facility] [place] [address], [facility] Chloride [Moles/Vol] 111 mmol/L High 98-107 The [facility] Comment on above: Performed By: #### 0 0071, 65937 ####[facility] [place] [address], [place] CO2 [Moles/Vol] 23 mmol/L Normal 21-31 [facility] Comment on above: Performed By: #### 0 0071, 62316 ####[facility] [place] [address], [place] Creatinine [Mass/Vol] 0.49 mg/dL Low 0.60-1.20 The [facility] Comment on above: Performed By: #### 0 0071, 15665 ####[facility] [place] [address], [place] GFR/1.73 sq M.predicted among blacks MDRD (S/P/Bld) [Vol rate/Area] mL/min/{1.73_m2} Normal >60 [facility] Comment on above: Performed By: #### 0 0071, 02000 ####[facility] [place] [address], [place] GFR/1.73 sq M.predicted among non-blacks MDRD (S/P/Bld) [Vol rate/Area] mL/min/{1.73_m2} Normal >60 The [facility] Comment on above: Performed By: #### 0 0071, 91724 ####[facility] [place] [address], [place] Glucose [Mass/Vol] 138 mg/dL High 70-100 [facility] Comment on above: Performed By: #### 0 0071, 09834 ####[facility] [place] [address], [place] Potassium [Moles/Vol] 3.9 mmol/L Normal 3.5-5.1 The [facility] Comment on above: Performed By: #### 0 0071, 40528 ####[facility] [place] [address], [place] Sodium [Moles/Vol] 140 mmol/L Normal 136-145 [facility] Comment on above: Performed By: #### 0 0071, 66111 ####[facility] [place] [address], [place] Urea nitrogen [Mass/Vol] 8 mg/dL Normal 7-25 [facility] Comment on above: Performed By: #### 0 0071, 51972 ####[facility] [place] [address], [place] CBC COMPLETE BLOOD COUNTon 0 04-02-2021 Erythrocyte distribution width (RBC) [Ratio] 15.9 % High 11.5-15.0 The [facility] Comment on above: Order Comment: No: D o not add to previous draw Performed By: #### 8 5499 #### [facility] [address] [place] [address], [facility] Hematocrit (Bld) [Volume fraction] 34.4 % Low 36.0-45.0 The [facility] Comment on above: Order Comment: No: D o not add to previous draw Performed By: #### 8 5499 #### [facility] [address] [place] [address], [facility] Hemoglobin (Bld) [Mass/Vol] 11.9 g/dL Low 12.0-15.0 The [facility] Comment on above: Order Comment: No: D o not add to previous draw Performed By: #### 8 5499 #### [facility] [address] [place] [address], [place] IMM PLATELET FRAC 3.9 % Normal 0.8-6.3 The [facility] Comment on above: Order Comment: No: D o not add to previous draw Performed By: #### 8 5499 #### [facility] [address] [place] [address], [place] MCH (RBC) [Entitic mass] 30.6 pg Normal 27.0-33.0 The [facility] Comment on above: Order Comment: No: D o not add to previous draw Performed By: #### 8 5499 #### [facility] [address] [place] [address], [place] MCHC (RBC) [Mass/Vol] 34.6 g/dL Normal 32.0-35.0 The [facility] Comment on above: Order Comment: No: D o not add to previous draw Performed By: #### 8 5499 #### [facility] [address] [place] [address], [place] MCV (RBC) [Entitic vol] 88.4 fL Normal 82.0-98.0 The [facility] Comment on above: Order Comment: No: D o not add to previous draw Performed By: #### 8 [id number] #### [facility] [address] [place] [id number], [facility] Nucleated RBC/100 WBC (Bld) [Ratio] 0 % Normal 0-0 The [facility] Comment on above: Order Comment: No: D o not add to previous draw Performed By: #### 8 5499 #### [facility] [address] [place] [id number], [place] PLAT CNT 140 10*3/uL Low 150-400 The [facility] Comment on above: Order Comment: No: D o not add to previous draw Performed By: #### 8 5499 #### [facility] [address] [place] [id number], [facility] RBC (Bld) [#/Vol] 3.89 10*6/uL Normal 3.80-5.00 [facility] Comment on above: Order Comment: No: D o not add to previous draw Performed By: #### 8 5499 #### [facility] [address] [place] [id number], [place] WBC (Bld) [#/Vol] 19.57 10*3/uL High 4.00-10.60 The [facility] Comment on above: Order Comment: No: D o not add to previous draw Performed By: #### 8 [id number] #### [facility] [address] [place] [id number], [place] Erythrocyte distribution width (RBC) [Ratio] 14.7 % Normal 11.5-15.0 The [facility] Comment on above: Performed By: #### 8 [id number] #### [facility] [address] [place] [id number], [place] Hematocrit (Bld) [Volume fraction] 27.3 % Low 36.0-45.0 The [facility] Comment on above: Performed By: #### 8 [id number] #### [facility] [address] [place] [address], [facility] Hemoglobin (Bld) [Mass/Vol] 9.1 g/dL Low 12.0-15.0 The [facility] Comment on above: Performed By: #### 8 [id number] #### [facility] [address] [place] [address], [facility] MCH (RBC) [Entitic mass] 30.3 pg Normal 27.0-33.0 The [facility] Comment on above: Performed By: #### 8 [id number] #### [facility] [address] [place] [address], [facility] MCHC (RBC) [Mass/Vol] 33.3 g/dL Normal 32.0-35.0 The [facility] Comment on above: Performed By: #### 8 [id number] #### [facility] [address] [place] [address], [facility] MCV (RBC) [Entitic vol] 91.0 fL Normal 82.0-98.0 The [facility] Comment on above: Performed By: #### 8 [id number] #### [facility] [address] [facility] Nucleated RBC/100 WBC (Bld) [Ratio] 0 % Normal 0-0 The [facility] Comment on above: Performed By: #### 8 [id number] #### [facility] [address] [place] [address], [facility] PLAT CNT 103 10*3/uL Low 150-400 The [facility] Comment on above: Performed By: #### 8 [id number] #### [facility] [address] [place] [id number], [facility] RBC (Bld) [#/Vol] 3.00 10*6/uL Low 3.80-5.00 [facility] Comment on above: Performed By: #### 8 [id number] #### [facility] [address] WBC (Bld) [#/Vol] 15.30 10*3/uL High 4.00-10.60 The [facility] Comment on above: Performed By: #### 8 [id number] #### [facility] [address] FIBRINOGENon 04-02-2021 FIBRINOGEN 138 mg/dL Low 150-425 The [facility] Comment on above: Performed By: #### 8 [id number] #### [facility] [address] [facility]. [address] FRESH FROZEN PLASMA 2 UNITSo n 04-02-2021 PRODUCT CODE 1 E2701 Normal The [facility] Comment on above: Order Comment: INR: 2.39 ,PTT: 43.1 at the time of order ;Indication: Performed By: #### 8 5499 #### [facility] [address] [facility]. [address] PRODUCT CODE 2 E2701 Normal [facility] Comment on above: Order Comment: INR: 2.39 ,PTT: 43.1 at the time of order ;Indication: Performed By: #### 8 [id number] #### [facility] [address] [facility]. [address] PRODUCT STATUS 1 RE Normal The [facility] Comment on above: Order Comment: INR: 2.39 ,PTT: 43.1 at the time of order ;Indication: Result Comment: Resu lt changed by IF on 04/04/2021 01:00. The previous value was XX. Performed By: #### 8 [id number] #### [facility] [address] PRODUCT STATUS 2 RE Normal The [facility] Comment on above: Order Comment: INR: 2.39 ,PTT: 43.1 at the time of order ;Indication: Result Comment: Resu lt changed by IF on 04/04/2021 01:00. The previous value was XX. Performed By: #### 8 [id number] #### [facility] [address] [place] [address], [facility] ABO 1 A Normal The [facility] Comment on above: Order Comment: INR: 2.39 ,PTT: 43.1 at the time of order ;Indication: Performed By: #### 8 [id number] #### [facility] [address] [place] [address], [facility] ABO 2 A Normal The [facility] Comment on above: Order Comment: INR: 2.39 ,PTT: 43.1 at the time of order ;Indication: Performed By: #### 8 [id number] #### [facility] [address] [place] [address], [facility] UNIT ID 1 [id number] Normal The [facility] Comment on above: Order Comment: INR: 2.39 ,PTT: 43.1 at the time of order ;Indication: Performed By: #### 8 [id number] #### [facility] [address] [place] [address], [facility] UNIT ID 2 [id number] Normal [facility] Comment on above: Order Comment: INR: 2.39 ,PTT: 43.1 at the time of order ;Indication: Performed By: #### 8 [id number] #### [facility] [address] [place] [address], [facility] RH 1 Positive Normal [facility] [facility] Comment on above: Order Comment: INR: 2.39 ,PTT: 43.1 at the time of order ;Indication: Performed By: #### 8 [id number] #### [facility] [address] [place] [address], [facility] RH 2 Positive Normal [facility] Comment on above: Order Comment: INR: 2.39 ,PTT: 43.1 at the time of order ;Indication: Performed By: #### 8 [id number] #### [facility] [address] [place] [id number], [facility] LACTATE BLOODon 04-02-2021 Lactate [Moles/Vol] 1.5 mmol/L Normal 0.5-2.2 [facility] Comment on above: Performed By: #### 3 09 #### [facility] [address] [place] [address], [facility] MAGNESIUM BLOODon 04-02-2021 Magnesium [Mass/Vol] 1.8 mg/dL Low 1.9-2.7 [facility] Comment on above: Order Comment: Check Chest Tube Position, ON ARRIVAL TO CVU Performed By: #### 0 0071, [id number], [id number] ####[facility] [place] [address], [facility] Magnesium [Mass/Vol] 2.6 mg/dL Normal 1.9-2.7 [facility] Comment on above: Performed By: #### 0 0071, [id number] ####[facility] [id number], [facility] PERFUSION BLOOD PANELon 03-20 BASE EXCESS -1.0 mmol/L Normal -2.0-3.0 [facility] Comment on above: Performed By: #### 3 1976 #### [facility] [address] [place] [id number], [facility] Glucose [Mass/Vol] 139 mg/dL High 70-105 [facility] Comment on above: Performed By: #### 3 1976 #### [facility] [address] [place] [address], [facility] Hematocrit (Bld) [Volume fraction] 24 % Low 38-51 [facility] Comment on above: Performed By: #### 3 1976 #### [facility] [address] [place] [address], [facility] Hemoglobin (Bld) [Mass/Vol] 8.2 g/dL Low 12.0-17.0 [facility] Comment on above: Performed By: #### 3 1976 #### [facility] [address] [place] [address], [place] IONIZED CALCIUM 1.35 mmol/L High 1.12-1.32 [facility] Comment on above: Performed By: #### 3 1976 #### [facility] [address] [place] [address], [place] Oxygen (Bld) [Partial pressure] 530.0 mm[Hg] High 80.0-105.0 [facility] Comment on above: Performed By: #### 3 1976 #### [facility] [address] [place] [address], [place] PCO2 40.1 mmHg Normal 35.0-45.0 [facility] Comment on above: Performed By: #### 3 1976 #### [facility] [address] [place] [address], [place] pH (Bld) 7.39 [pH] Normal 7.35-7.45 [facility] Comment on above: Performed By: #### 3 1976 #### [facility] [address] [place] [address], [place] Potassium [Moles/Vol] 4.1 mmol/L Normal 3.5-4.9 [facility] Comment on above: Performed By: #### 3 1976 #### [facility] [address] [place] [address], [place] Sodium [Moles/Vol] 140 mmol/L Normal 138-146 [facility] Comment on above: Performed By: #### 3 1976 #### [facility] [address] [place] [address], [place] BASE EXCESS 2.0 mmol/L Normal -2.0-3.0 [facility] Comment on above: Performed By: #### 3 1976 #### [facility] [address] [place] [address], [facility] Glucose [Mass/Vol] 146 mg/dL High 70-105 [facility] Comment on above: Performed By: #### 3 1976 #### [facility] [address] [place] [address], [facility] Hematocrit (Bld) [Volume fraction] 16 % Low 38-51 [facility] Comment on above: Performed By: #### 3 1976 #### [facility] [address] [place] [address], [facility] Hemoglobin (Bld) [Mass/Vol] 5.4 g/dL Critically low 12.0-17.0 [facility] Comment on above: Performed By: #### 3 1976 #### [facility] [address] [place] [address], [facility] IONIZED CALCIUM 1.15 mmol/L Normal 1.12-1.32 [facility] Comment on above: Performed By: #### 3 1976 #### [facility] [address] [place] [address], [facility] Oxygen (Bld) [Partial pressure] 529.0 mm[Hg] High 80.0-105.0 [facility] Comment on above: Performed By: #### 3 1976 #### [facility] [address] [place] [address], [facility] PCO2 37.9 mmHg Normal 35.0-45.0 [facility] Comment on above: Performed By: #### 3 1976 #### [facility] [address] [place] [address], [facility] pH (Bld) 7.44 [pH] Normal 7.35-7.45 [facility] Comment on above: Performed By: #### 3 1976 #### [facility] [address] [place] [address], [place] Potassium [Moles/Vol] 3.9 mmol/L Normal 3.5-4.9 [facility] Comment on above: Performed By: #### 3 1976 #### [facility] [address] [place] [address], [place] Sodium [Moles/Vol] 141 mmol/L Normal 138-146 [facility] Comment on above: Performed By: #### 3 1976 #### [facility] [address] [place] [address], [place] BASE EXCESS 2.0 mmol/L Normal -2.0-3.0 [facility] Comment on above: Performed By: #### 8 [id number] #### [facility] [address] [place] [address], [place] Glucose [Mass/Vol] 168 mg/dL High 70-105 [facility] Comment on above: Performed By: #### 8 [id number] #### [facility] [address] [place] [address], [place] Hematocrit (Bld) [Volume fraction] 17 % Low 38-51 [facility] Comment on above: Performed By: #### 8 [id number] #### [facility] [address] [place] [address], [place] Hemoglobin (Bld) [Mass/Vol] 5.8 g/dL Critically low 12.0-17.0 [facility] Comment on above: Performed By: #### 8 [id number] #### [facility] [address] [place] [address], [place] IONIZED CALCIUM 1.95 mmol/L Critically high 1.12-1.32 [facility] Comment on above: Performed By: #### 8 [id number] #### [facility] [address] [place] [address], [place] Oxygen (Bld) [Partial pressure] 489.0 mm[Hg] High 80.0-105.0 [facility] Comment on above: Performed By: #### 8 [id number] #### [facility] [address] [place] [address], [facility] PCO2 41.5 mmHg Normal 35.0-45.0 [facility] Comment on above: Performed By: #### 8 [id number] #### [facility] [address] [place] [address], [facility] pH (Bld) 7.42 [pH] Normal 7.35-7.45 [facility] Comment on above: Performed By: #### 8 [id number] #### [facility] [address] [place] [address], [place] Potassium [Moles/Vol] 4.7 mmol/L Normal 3.5-4.9 [facility] Comment on above: Performed By: #### 8 [id number] #### [facility] [address] [place] [address], [place] Sodium [Moles/Vol] 136 mmol/L Low 138-146 [facility] Comment on above: Performed By: #### 8 [id number] #### [facility] [address] [place] [address], [place] BASE EXCESS 0.0 mmol/L Normal -2.0-3.0 [facility] Comment on above: Performed By: #### 8 [id number] #### [facility] [address] [place] [address], [place] Glucose [Mass/Vol] 126 mg/dL High 70-105 [facility] Comment on above: Performed By: #### 8 [id number] #### [facility] [address] [place] [address], [place] Hematocrit (Bld) [Volume fraction] 16 % Low 38-51 [facility] Comment on above: Performed By: #### 8 [id number] #### [facility] [address] [place] [address], [facility] Hemoglobin (Bld) [Mass/Vol] 5.4 g/dL Critically low 12.0-17.0 [facility] Comment on above: Performed By: #### 8 [id number] #### [facility] [address] [place] [address], [facility] IONIZED CALCIUM 0.94 mmol/L Low 1.12-1.32 [facility] Comment on above: Performed By: #### 8 [id number] #### [facility] [address] [place] [address], [facility] Oxygen (Bld) [Partial pressure] 37.0 mm[Hg] Normal [facility] Comment on above: Performed By: #### 8 [id number] #### [facility] [address] [place] [address], [facility] PCO2 36.9 mmHg Low 41.0-51.0 [facility] Comment on above: Performed By: #### 8 [id number] #### [facility] [address] [place] [address], [facility] pH (Bld) 7.43 [pH] High 7.31-7.41 [facility] Comment on above: Performed By: #### 8 [id number] #### [facility] [address] [place] [address], [facility] Potassium [Moles/Vol] 4.4 mmol/L Normal 3.5-4.9 [facility] Comment on above: Performed By: #### 8 [id number] #### [facility] [address] [place] [address], [facility] Sodium [Moles/Vol] 140 mmol/L Normal 138-146 [facility] Comment on above: Performed By: #### 8 [id number] #### [facility] [address] [place] [address], [facility] BASE EXCESS 3.0 mmol/L Normal -2.0-3.0 [facility] Comment on above: Performed By: #### 8 [id number] #### [facility] [address] [place] [address], [facility] Glucose [Mass/Vol] 117 mg/dL High 70-105 [facility] Comment on above: Performed By: #### 8 [id number] #### [facility] [address] [place] [address], [facility] Hematocrit (Bld) [Volume fraction] 18 % Low 38-51 [facility] Comment on above: Performed By: #### 8 [id number] #### [facility] [address] [place] [address], [facility] Hemoglobin (Bld) [Mass/Vol] 6.1 g/dL Low 12.0-17.0 [facility] Comment on above: Performed By: #### 8 [id number] #### [facility] [address] [place] [address], [facility] IONIZED CALCIUM 0.92 mmol/L Low 1.12-1.32 [facility] Comment on above: Performed By: #### 8 [id number] #### [facility] [address] [place] [address], [facility] Oxygen (Bld) [Partial pressure] 445.0 mm[Hg] High 80.0-105.0 [facility] Comment on above: Performed By: #### 8 [id number] #### [facility] [address] [place] [address], [facility] PCO2 36.6 mmHg Normal 35.0-45.0 [facility] Comment on above: Performed By: #### 8 [id number] #### [facility] [address] [place] [address], [facility] pH (Bld) 7.48 [pH] High 7.35-7.45 [facility] Comment on above: Performed By: #### 8 [id number] #### [facility] [address] [place] [address], [facility] Potassium [Moles/Vol] 4.4 mmol/L Normal 3.5-4.9 [facility] Comment on above: Performed By: #### 8 [id number] #### [facility] [address] [place] [address], [place] Sodium [Moles/Vol] 138 mmol/L Normal 138-146 [facility] Comment on above: Performed By: #### 8 5498 #### [facility] [address] [place] [address], [facility] BASE EXCESS 4.0 mmol/L High -2.0-3.0 [facility] Comment on above: Performed By: #### 3 1976 #### [facility] [address] [place] [id number], [facility] Glucose [Mass/Vol] 118 mg/dL High 70-105 [facility] Comment on above: Performed By: #### 3 1976 #### [facility] [address] [place] [address], [facility] Hematocrit (Bld) [Volume fraction] 20 % Low 38-51 [facility] Comment on above: Performed By: #### 3 1976 #### [facility] [address] [place] [id number], [facility] Hemoglobin (Bld) [Mass/Vol] 6.8 g/dL Low 12.0-17.0 [facility] Comment on above: Performed By: #### 3 1976 #### [facility] [address] [place] [id number], [facility] IONIZED CALCIUM 0.96 mmol/L Low 1.12-1.32 [facility] Comment on above: Performed By: #### 3 1976 #### [facility] [address] [place] [address], [place] Oxygen (Bld) [Partial pressure] 466.0 mm[Hg] High 80.0-105.0 [facility] Comment on above: Performed By: #### 3 1976 #### [facility] [address] [place] [address], [place] PCO2 35.3 mmHg Normal 35.0-45.0 [facility] Comment on above: Performed By: #### 3 1976 #### [facility] [address] [place] [address], [place] pH (Bld) 7.51 [pH] High 7.35-7.45 [facility] Comment on above: Performed By: #### 3 1976 #### [facility] [address] [place] [address], [place] Potassium [Moles/Vol] 4.3 mmol/L Normal 3.5-4.9 [facility] Comment on above: Performed By: #### 3 1976 #### [facility] [address] [place] [address], [place] Sodium [Moles/Vol] 138 mmol/L Normal 138-146 [facility] Comment on above: Performed By: #### 3 1976 #### [facility] [address] [place] [address], [place] BASE EXCESS 1.0 mmol/L Normal -2.0-3.0 [facility] Comment on above: Performed By: #### 3 1976 #### [facility] [address] [place] [address], [place] Glucose [Mass/Vol] 92 mg/dL Normal 70-105 [facility] Comment on above: Performed By: #### 3 1976 #### [facility] [address] [place] [address], [place] Hematocrit (Bld) [Volume fraction] 18 % Low 38-51 [facility] Comment on above: Performed By: #### 3 1976 #### [facility] [address] [place] [address], [facility] Hemoglobin (Bld) [Mass/Vol] 6.1 g/dL Low 12.0-17.0 [facility] Comment on above: Performed By: #### 3 1976 #### [facility] [address] [place] [address], [facility] IONIZED CALCIUM 0.90 mmol/L Low 1.12-1.32 [facility] Comment on above: Performed By: #### 3 1976 #### [facility] [address] [place] [address], [facility] Oxygen (Bld) [Partial pressure] 45.0 mm[Hg] Normal [facility] Comment on above: Performed By: #### 3 1976 #### [facility] [address] [place] [address], [facility] PCO2 32.1 mmHg Low 41.0-51.0 [facility] Comment on above: Performed By: #### 3 1976 #### [facility] [address] [place] [address], [facility] pH (Bld) 7.49 [pH] High 7.31-7.41 [facility] Comment on above: Performed By: #### 3 1976 #### [facility] [address] [place] [address], [facility] Potassium [Moles/Vol] 3.7 mmol/L Normal 3.5-4.9 [facility] Comment on above: Performed By: #### 3 1976 #### [facility] [address] [place] [address], [facility] Sodium [Moles/Vol] 138 mmol/L Normal 138-146 [facility] Comment on above: Performed By: #### 3 1976 #### [facility] [address] [place] [address], [facility] BASE EXCESS 7.0 mmol/L High -2.0-3.0 [facility] Comment on above: Performed By: #### 3 1976 #### [facility] [address] [place] [address], [place] Glucose [Mass/Vol] 94 mg/dL Normal 70-105 [facility] Comment on above: Performed By: #### 3 1976 #### [facility] [address] [place] [address], [facility] Hematocrit (Bld) [Volume fraction] 17 % Low 38-51 [facility] Comment on above: Performed By: #### 3 1976 #### [facility] [address] [place] [address], [facility] Hemoglobin (Bld) [Mass/Vol] 5.8 g/dL Critically low 12.0-17.0 [facility] Comment on above: Performed By: #### 3 1976 #### [facility] [address] [place] [address], [facility] IONIZED CALCIUM 0.85 mmol/L Low 1.12-1.32 [facility] Comment on above: Performed By: #### 3 1976 #### [facility] [address] [place] [address], [facility] Oxygen (Bld) [Partial pressure] 553.0 mm[Hg] High 80.0-105.0 [facility] Comment on above: Performed By: #### 3 1976 #### [facility] [address] [place] [address], [place] PCO2 32.8 mmHg Low 35.0-45.0 [facility] Comment on above: Performed By: #### 3 1976 #### [facility] [address] [place] [address], [place] pH (Bld) 7.57 [pH] High 7.35-7.45 [facility] Comment on above: Performed By: #### 3 1976 #### [facility] [address] [place] [address], [facility] Potassium [Moles/Vol] 3.7 mmol/L Normal 3.5-4.9 [facility] Comment on above: Performed By: #### 3 1976 #### [facility] [address] [place] [address], [facility] Sodium [Moles/Vol] 137 mmol/L Low 138-146 [facility] Comment on above: Performed By: #### 3 1976 #### [facility] [address] [place] [address], [facility] BASE EXCESS 0.0 mmol/L Normal -2.0-3.0 [facility] Comment on above: Performed By: #### 3 1976 #### [facility] [address] [place] [id number], [facility] Glucose [Mass/Vol] 109 mg/dL High 70-105 [facility] Comment on above: Performed By: #### 3 1976 #### [facility] [address] [place] [address], [facility] Hematocrit (Bld) [Volume fraction] 27 % Low 38-51 [facility] Comment on above: Performed By: #### 3 1976 #### [facility] [address] [place] [address], [facility] Hemoglobin (Bld) [Mass/Vol] 9.2 g/dL Low 12.0-17.0 [facility] Comment on above: Performed By: #### 3 1976 #### [facility] [address] [place] [id number], [facility] IONIZED CALCIUM 1.17 mmol/L Normal 1.12-1.32 [facility] Comment on above: Performed By: #### 3 1976 #### [facility] [address] [place] [address], [place] Oxygen (Bld) [Partial pressure] 336.0 mm[Hg] High 80.0-105.0 [facility] Comment on above: Performed By: #### 3 1976 #### [facility] [address] [place] [address], [place] PCO2 41.6 mmHg Normal 35.0-45.0 [facility] Comment on above: Performed By: #### 3 1976 #### [facility] [address] [place] [address], [place] pH (Bld) 7.39 [pH] Normal 7.35-7.45 [facility] Comment on above: Performed By: #### 3 1976 #### [facility] [address] [place] [address], [place] Potassium [Moles/Vol] 3.6 mmol/L Normal 3.5-4.9 [facility] Comment on above: Performed By: #### 3 1976 #### [facility] [address] [place] [address], [place] Sodium [Moles/Vol] 139 mmol/L Normal 138-146 [facility] Comment on above: Performed By: #### 3 1976 #### [facility] [address] [place] [address], [place] BASE EXCESS 2.0 mmol/L Normal -2.0-3.0 [facility] Comment on above: Performed By: #### 8 [id number] #### [facility] [address] [place] [address], [place] Glucose [Mass/Vol] 93 mg/dL Normal 70-105 [facility] Comment on above: Performed By: #### 8 [id number] #### [facility] [address] [place] [address], [place] Hematocrit (Bld) [Volume fraction] 27 % Low 38-51 [facility] Comment on above: Performed By: #### 8 [id number] #### [facility] [address] [place] [address], [facility] Hemoglobin (Bld) [Mass/Vol] 9.2 g/dL Low 12.0-17.0 [facility] Comment on above: Performed By: #### 8 [id number] #### [facility] [address] [place] [address], [facility] IONIZED CALCIUM 1.15 mmol/L Normal 1.12-1.32 [facility] Comment on above: Performed By: #### 8 [id number] #### [facility] [address] [place] [address], [facility] Oxygen (Bld) [Partial pressure] 545.0 mm[Hg] High 80.0-105.0 [facility] Comment on above: Performed By: #### 8 [id number] #### [facility] [address] [place] [address], [facility] PCO2 37.6 mmHg Normal 35.0-45.0 [facility] Comment on above: Performed By: #### 8 [id number] #### [facility] [address] [place] [place] [address], [facility] pH (Bld) 7.45 [pH] Normal 7.35-7.45 [facility] Comment on above: Performed By: #### 8 [id number] #### [facility] [address] [place] [address], [facility] Potassium [Moles/Vol] 3.3 mmol/L Low 3.5-4.9 The [facility] Comment on above: Performed By: #### 8 [id number] #### [facility] [address] [place] [address], [place] Sodium [Moles/Vol] 140 mmol/L Normal 138-146 [facility] Comment on above: Performed By: #### 8 [id number] #### [facility] [address] [place] [address], [place] PHOSPHORUS BLOODon Phosphate [Mass/Vol] 3.4 mg/dL Normal 2.5-5.0 The [facility] Comment on above: Order Comment: Check Chest Tube Position, ON ARRIVAL TO CVU Performed By: #### 0 0071, [id number], [id number] ####[facility] [place] [address], [facility] POC GLUCOSE LABon 04-02-2021 Glucose [Mass/Vol] 154 mg/dL High 70-100 [facility] Comment on above: Performed By: #### 8 [id number] #### [facility] [address] [place] [address], [facility] Glucose [Mass/Vol] 101 mg/dL High 70-100 [facility] Comment on above: Performed By: #### 3 1595 #### [facility] [address] [place] [address], [facility] POC SARS COV2 ANTIGEN NEGATI VEon 04-02-2021 POC SARS COV2 ANTIGEN NEG Negative Normal NEGATIVE The [facility] Comment on above: Result Comment: Nega tive results from patients with symptom onset beyond seven days, should be treated presumptive and confirmation with a molecular assay, if necessary, for patient management, may be performed. Negative results do not rule out SARS-CoV-2 infection and should not be used as the sole basis for treatment or patient management decisions, including infection control decisions. Negative results should be considered in the context of a patient?s recent exposures, history and the presence of clinical signs and symptoms consistent with COVID-19. The [employer] COVID-19 Ag Card is a lateral flow immunoassay intended for the qualitative detection of nucleocapsid protein antigen from SARS-CoV-2 in direct nasal swabs from individuals within the first seven days of symptom onset. Testing is limited to laboratories certified under the Clinical Laboratory Improvement Amendments of 1988 (CLIA), 42 U.S.C. ???263a, that meet the requirements to perform moderate, high or waived complexity tests. This test is authorized for use at the Point of Care (POC), i.e., in patient care settings operating under a CLIA Certificate of Waiver, Certificate of Compliance, or Certificate of Accreditation. Performed By: #### 3 1977 #### [address] PORTABLE CHEST 1 VIEWon 03-20 PORTABLE CHEST 1 VIEW [facility] Department of Radiology [address] [place] [id number] Patient Name: AMBAR BREWSTER : 1950 Sex: F Age: Race: White Pt. Location: [place] [address] Patient Status: I Ordered Date: 04/02/2021 1:30:00 PM Completed Date: 04/02/2021 02:36 PM Requesting Provider: FELISA HYATT Attending Provider: FELISA HYATT Report Copy To: Signs & Symptoms: Post CABG History: Comments: Check Chest Tube Position, ON ARRIVAL TO CVU Exam: PORTABLE CHEST 1 VIEW PORTABLE CHEST 1 VIEW 04/02/2021 2:36 PM CLINICAL INDICATIONS: Post CABG TECHNOLOGIST COMMENTS: post cabg QUESTION FOR THE RADIOLOGIST: Check Chest Tube Position, ON ARRIVAL TO CVU PROTOCOL: AP(PA) view was obtained. COMPARISON: March 25, 2021 FINDINGS: ET tube noted midway between clavicles and krishan. NG tube in the stomach. Thoracostomy tubes and mediastinal drainage tube. [place]-Ayan catheter with the tip in the pulmonary outflow. Congested lung valerio. IMPRESSION: As above. Electronically signed: Kirk Campa. Transcribed by: [email or web address], User Resident: Electronically Signed by: KIRK CAMPA @ 04/02/2021 02:43 PM Normal The [facility] Comment on above: Order Comment: Check Chest Tube Position, ON ARRIVAL TO CVU PROTHROMBIN TIMEon INR Coag (PPP) [Relative time] 1.42 {INR} High 0.91-1.16 The [facility] Comment on above: Order Comment: No: D o not add to previous draw Result Comment: [facility] P RECOMMENDED INR FOR WARFARIN THERAPY -------- ------- CONDITION INR PROPHYLAXIS OF VENOUS THROMBOSIS 2-3 (HIGH-RISK SURGERY) TREATMENT OF VENOUS THROMBOSIS 2-3 TREATMENT OF PULMONARY EMBOLISM 2-3 PREVENTION OF SYSTEMIC EMBOLISM: 2-3 ACUTE MYOCARDIAL INFARCTION TISSUE HEART VALVES VALVULAR HEART DISEASE ATRIAL FIBRILLATION RECURRENT SYSTEMIC EMBOLISM MECHANICAL HEART VALVE 2.5-3.5 FROM: ORAL ANTICOAGULANTS. MECHANISM OF ACTION, CLINICAL EFFECTIVENESS, AND OPTIMAL THERAPEUTIC RANGE. CHEST 1995;108:231S-246S. Performed By: #### 8 [id number] #### [facility] [address] [facility]. [address] PT Coag (PPP) [Time] 17.4 s High 12.3-14.8 The [facility] Comment on above: Order Comment: No: D o not add to previous draw Result Comment: ALL RESULTS MUST BE INTERPRETED WITH RESPECT TO BLOOD DRAWING ARTIFACT OR DILUTION ERROR OF ANTICOAGULANT AT THE TIME OF SAMPLING. Performed By: #### 8 [id number] #### [facility] [address] [place] [address], [facility] INR Coag (PPP) [Relative time] 1.92 {INR} High 0.91-1.16 The [facility] Comment on above: Order Comment: No: D o not add to previous draw Result Comment: [facility] P RECOMMENDED INR FOR WARFARIN THERAPY -------- ------- CONDITION INR PROPHYLAXIS OF VENOUS THROMBOSIS 2-3 (HIGH-RISK SURGERY) TREATMENT OF VENOUS THROMBOSIS 2-3 TREATMENT OF PULMONARY EMBOLISM 2-3 PREVENTION OF SYSTEMIC EMBOLISM: 2-3 ACUTE MYOCARDIAL INFARCTION TISSUE HEART VALVES VALVULAR HEART DISEASE ATRIAL FIBRILLATION RECURRENT SYSTEMIC EMBOLISM MECHANICAL HEART VALVE 2.5-3.5 FROM: ORAL ANTICOAGULANTS. MECHANISM OF ACTION, CLINICAL EFFECTIVENESS, AND OPTIMAL THERAPEUTIC RANGE. CHEST 1995;108:231S-246S. Performed By: #### 8 [id number] #### [facility] [address] [place] [address], [facility] PT Coag (PPP) [Time] 22.0 s High 12.3-14.8 The [facility] Comment on above: Order Comment: No: D o not add to previous draw Result Comment: ALL RESULTS MUST BE INTERPRETED WITH RESPECT TO BLOOD DRAWING ARTIFACT OR DILUTION ERROR OF ANTICOAGULANT AT THE TIME OF SAMPLING. Performed By: #### 8 [id number] #### [facility] [address] [place] [id number], [place] INR Coag (PPP) [Relative time] 2.39 {INR} High 0.91-1.16 The [facility] Comment on above: Result Comment: [facility] P RECOMMENDED INR FOR WARFARIN THERAPY -------- ------- CONDITION INR PROPHYLAXIS OF VENOUS THROMBOSIS 2-3 (HIGH-RISK SURGERY) TREATMENT OF VENOUS THROMBOSIS 2-3 TREATMENT OF PULMONARY EMBOLISM 2-3 PREVENTION OF SYSTEMIC EMBOLISM: 2-3 ACUTE MYOCARDIAL INFARCTION TISSUE HEART VALVES VALVULAR HEART DISEASE ATRIAL FIBRILLATION RECURRENT SYSTEMIC EMBOLISM MECHANICAL HEART VALVE 2.5-3.5 FROM: ORAL ANTICOAGULANTS. MECHANISM OF ACTION, CLINICAL EFFECTIVENESS, AND OPTIMAL THERAPEUTIC RANGE. CHEST 1995;108:231S-246S. Performed By: #### 8 [id number] #### [facility] [address] PT Coag (PPP) [Time] 26.2 s High 12.3-14.8 [facility] Comment on above: Result Comment: ALL RESULTS MUST BE INTERPRETED WITH RESPECT TO BLOOD DRAWING ARTIFACT OR DILUTION ERROR OF ANTICOAGULANT AT THE TIME OF SAMPLING. Performed By: #### 8 [id number] #### [facility] [address] RBC'S 2 UNITSon 04-02-2021 CROSSMATCH INTERP 1 COMP Normal [facility] Comment on above: Performed By: #### 3 0785 #### [facility] [address] [place] [address], [facility] CROSSMATCH INTERP 2 COMP Normal [facility] Comment on above: Performed By: #### 3 0775 #### [facility] [address] PRODUCT CODE 1 E0336 Normal [facility] Comment on above: Performed By: #### 3 4981 #### [facility] [address] [place] [address], [facility] PRODUCT CODE 2 E0336 Normal [facility] Comment on above: Performed By: #### 3 0739 #### [facility] [address] [place] [address], [place] PRODUCT STATUS 1 RE Normal The [facility] Comment on above: Result Comment: Resu lt changed by IF on 04/05/2021 07:21. The previous value was XM. Performed By: #### 3 0739 #### [facility] [address] [place] [address], [facility] PRODUCT STATUS 2 RE Normal [facility] Comment on above: Result Comment: Resu lt changed by IF on 04/05/2021 07:21. The previous value was XM. Performed By: #### 3 0739 #### [facility] [address] [place] [address], [facility] UNIT ABO 1 A Normal [facility] Comment on above: Performed By: #### 3 0739 #### [facility] [address] [place] [address], [place] UNIT ABO 2 A Normal The [facility] Comment on above: Performed By: #### 3 0739 #### [facility] [address] [place] [address], [facility] UNIT ID 1 [id number] Normal [facility] Comment on above: Performed By: #### 3 0739 #### [facility] [address] [place] [address], [place] UNIT ID 2 [id number] Normal [facility] Comment on above: Performed By: #### 3 0739 #### [facility] [address] [place] [address], [place] UNIT RH 1 Negative Normal The [facility] Comment on above: Performed By: #### 3 0739 #### [facility] [address] [place] [address], [place] UNIT RH 2 Negative Normal The [facility] Comment on above: Performed By: #### 3 0739 #### [facility] [address] [place] [address], [place] CROSSMATCH INTERP 1 COMP Normal [facility] Comment on above: Performed By: #### 3 0965 #### [facility] [address] [place] [address], [place] CROSSMATCH INTERP 2 COMP Normal [facility] Comment on above: Performed By: #### 3 0965 #### [facility] [address] [place] [address], [place] PRODUCT CODE 1 E0336 Normal [facility] Comment on above: Performed By: #### 3 0965 #### [facility] [address] [place] [address], [place] PRODUCT CODE 2 E0336 Normal [facility] Comment on above: Performed By: #### 3 0965 #### [facility] [address] [place] [address], [place] PRODUCT STATUS 1 PT Normal The [facility] Comment on above: Result Comment: Resu lt changed by IF on 04/02/2021 13:04. The previous value was XM. Result changed by IF on 04/03/2021 00:30. The previous value was IS. Performed By: #### 3 0965 #### [facility] [address] [place] [address], [place] PRODUCT STATUS 2 PT Normal [facility] Comment on above: Result Comment: Resu lt changed by IF on 04/02/2021 13:04. The previous value was XM. Result changed by IF on 04/03/2021 00:30. The previous value was IS. Performed By: #### 3 0965 #### [facility] [address] [place] [address], [place] UNIT ABO 1 A Normal The [facility] Comment on above: Performed By: #### 3 65 #### [facility] [address] [place] [address], [place] UNIT ABO 2 A Normal The [facility] Comment on above: Performed By: #### 3 0965 #### [facility] [address] [place] [address], [facility] UNIT ID 1 [id number] Normal [facility] Comment on above: Performed By: #### 3 0965 #### [facility] [address] [place] [address], [facility] UNIT ID 2 [id number] Normal [facility] Comment on above: Performed By: #### 3 0965 #### [facility] [address] [place] [address], [place] UNIT RH 1 Negative Normal The [facility] Comment on above: Performed By: #### 3 0965 #### [facility] [address] [place] [address], [place] UNIT RH 2 Negative Normal The [facility] Comment on above: Performed By: #### 3 0965 #### [facility] [address] [place] [address], [place] RBC'S 2 UNITSon 04-01-2021 CROSSMATCH INTERP 1 COMP Normal [facility] Comment on above: Performed By: #### 3 0965 #### [facility] [address] [place] [address], [place] CROSSMATCH INTERP 2 COMP Normal [facility] Comment on above: Performed By: #### 3 0965 #### [facility] [address] [place] [address], [facility] PRODUCT CODE 1 E0336 Normal [facility] Comment on above: Performed By: #### 3 0965 #### [facility] [address] [place] [address], [place] PRODUCT CODE 2 E0336 Normal [facility] Comment on above: Performed By: #### 3 0965 #### [facility] [address] [place] [address], [facility] PRODUCT STATUS 1 PT Normal [facility] Comment on above: Result Comment: Resu lt changed by IF on 04/02/2021 09:57. The previous value was XM. Result changed by IF on 04/03/2021 00:30. The previous value was IS. Performed By: #### 3 65 #### [facility] [address] [place] [address], [facility] PRODUCT STATUS 2 PT Normal [facility] Comment on above: Result Comment: Resu lt changed by IF on 04/02/2021 09:57. The previous value was XM. Result changed by IF on 04/03/2021 00:30. The previous value was IS. Performed By: #### 3 65 #### [facility] [address] [place] [address], [facility] UNIT ABO 1 A Normal [facility] Comment on above: Performed By: #### 3 0965 #### [facility] [address] [place] [address], [place] UNIT ABO 2 A Normal [facility] Comment on above: Performed By: #### 3 0965 #### [facility] [address] [place] [address], [place] UNIT ID 1 [id number] Normal [facility] Comment on above: Performed By: #### 3 0965 #### [facility] [address] UNIT ID 2 [id number] Normal [facility] Comment on above: Performed By: #### 3 0965 #### [facility] [address] [place] [address], [facility] UNIT RH 1 Negative Normal [facility] Comment on above: Performed By: #### 3 0965 #### [facility] [address] [place] [address], [facility] UNIT RH 2 Negative Normal The [facility] Comment on above: Performed By: #### 3 0965 #### [facility] [address] [facility] [address] *MRSA/MSSA DNA NASALon 03-25 *MRSA/MSSA DNA NASAL Clinical Report: (D ) Specimen: NASAL SWAB Collected: 03/25/2021 10:21 Status: Final Last Updated: 03/27/2021 08:02 MSSA DNA (Final) Negative MRSA DNA (Final) Methicillin Resistant Staphylococcus aureus DNA Detected Normal [facility] Comment on above: Performed By: #### 3 1595 #### [facility] [address] [facility]. [address] ANTI C3 DATon 03-25-2021 ANTI C3 ZEENAT Negative Normal [facility] Comment on above: Performed By: #### 3 0965 #### [facility] [address] [place] [address], [facility] ANTI IGG DATon 03-25-2021 ANTI IGG ZEENAT Negative Normal The [facility] Comment on above: Performed By: #### 3 0965 #### [facility] [address] ANTIBODY IDENTIFICATIONon ANTIBODY ID [facility] Normal [facility] Comment on above: Performed By: #### 3 0739 #### [facility] [address] APTTon 03-25-2021 aPTT Coag (Bld) [Time] 30.2 s Normal 25.0-35.0 The [facility] Comment on above: Result Comment: ALL RESULTS MUST BE INTERPRETED WITH RESPECT TO BLOOD DRAWING ARTIFACT OR DILUTION ERROR OF ANTICOAGULANT AT THE TIME OF SAMPLING. THE APTT SHOULD NOT BE USED TO MONITOR UNFRACTIONATED HEPARIN THERAPY, THIS LABORATORY NO LONGER HAS AN ESTABLISHED THERAPEUTIC RANGE BASED ON THE APTT. IT IS RECOMMENDED THAT THE [facility] - HEPARIN ASSAY (ANTI-XA ACTIVITY) BE USED FOR THIS PURPOSE. Performed By: #### 8 [id number] #### [facility] [address] CBC W/DIFFon 03-25-2021 ABS IMM GRANS 0.0 10*3/uL Normal 0.0-0.2 [facility] Comment on above: Performed By: #### 5 0103 #### [facility] [address] ABS NEUTROPHILS 4.7 10*3/uL Normal 1.6-7.6 [facility] Comment on above: Performed By: #### 5 0103 #### [facility] [address] Basophils (Bld) [#/Vol] 0.1 10*3/uL Normal 0.0-0.2 The [facility] Comment on above: Performed By: #### 5 0103 #### [facility] [address] [place] [address], [facility] Basophils/100 WBC (Bld) 0.7 % Normal 0.0-1.0 The [facility] Comment on above: Performed By: #### 5 0103 #### [facility] [address] [place] [address], [facility] Eosinophils (Bld) [#/Vol] 0.1 10*3/uL Normal 0.0-0.5 The [facility] Comment on above: Performed By: #### 5 0103 #### [facility] [address] [place] [address], [facility] Eosinophils/100 WBC (Bld) 1.6 % Normal 0.0-6.0 The [facility] Comment on above: Performed By: #### 5 3 #### [facility] [address] [place] [address], [facility] Erythrocyte distribution width (RBC) [Ratio] 12.8 % Normal 11.5-15.0 The [facility] Comment on above: Performed By: #### 3 #### [facility] [address] [facility] [place] [address], [facility] Hematocrit (Bld) [Volume fraction] 35.0 % Low 36.0-45.0 The [facility] Comment on above: Performed By: #### 102 #### [facility] [address] [facility] [place] [address], [facility] Hemoglobin (Bld) [Mass/Vol] 11.6 g/dL Low 12.0-15.0 The [facility] Comment on above: Performed By: #### 3 #### [facility] [address] [facility] [place] [address], [facility] IMMATURE GRANS 0.3 % Normal 0.0-1.0 [facility] Comment on above: Performed By: #### 5 3 #### [facility] [address] [facility] [address], [facility] Lymphocytes (Bld) [#/Vol] 1.3 10*3/uL Normal 1.2-4.0 The [facility] Comment on above: Performed By: #### 3 #### [facility] [address] [place] [address], [facility] Lymphocytes/100 WBC (Bld) 19.2 % Low 20.0-45.0 The [facility] Comment on above: Performed By: #### 5 3 #### [facility] [address] [facility]. [address] MCH (RBC) [Entitic mass] 31.4 pg Normal 27.0-33.0 The [facility] Comment on above: Performed By: #### 5 3 #### [facility] [address] [facility] [address] MCHC (RBC) [Mass/Vol] 33.1 g/dL Normal 32.0-35.0 The [facility] Comment on above: Performed By: #### 5 3 #### [facility] [address] MCV (RBC) [Entitic vol] 94.9 fL Normal 82.0-98.0 The [facility] Comment on above: Performed By: #### 102 #### [facility] [address] [facility] [place] [address], [facility] Monocytes (Bld) [#/Vol] 0.6 10*3/uL Normal 0.1-1.0 The [facility] Comment on above: Performed By: #### 5 3 #### [facility] [address] MONOS 8.4 % Normal 5.0-12.0 The [facility] Comment on above: Performed By: #### 5 3 #### [facility] [address] [facility]. [address] Neutrophils/100 WBC (Bld) 69.8 % Normal 40.0-72.0 The [facility] Comment on above: Performed By: #### 5 3 #### [facility] [address] Nucleated RBC/100 WBC (Bld) [Ratio] 0 % Normal 0-0 The [facility] Comment on above: Performed By: #### 5 3 #### [facility] [address] PLAT CNT 325 10*3/uL Normal 150-400 [facility] Comment on above: Performed By: #### 5 0103 #### [place] [address], [facility] RBC (Bld) [#/Vol] 3.69 10*6/uL Low 3.80-5.00 [facility] Comment on above: Performed By: #### 5 0103 #### [facility] [address] [place] [address], [facility] WBC (Bld) [#/Vol] 6.67 10*3/uL Normal 4.00-10.60 [facility] Comment on above: Performed By: #### 5 0103 #### [address] CHEST AND LATERALon 03-25-20 21 CHEST AND LATERAL [facility] Department of Radiology [address] [place], [place] [id number] Patient Name: AMBAR BREWSTER : 1950 Sex: F Age: Race: White Pt. 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 COMPARISON: April 10, 2008 FINDINGS: The trachea is midline. Cardiac mediastinal silhouette is within normal limits. No large effusion, pneumothorax or subdiaphragmatic free air. There is flattening the diaphragms on lateral view is hyperinflation lungs similar to prior study. IMPRESSION: Hyperinflation lungs which may be consistent with COPD. No focal airspace disease. Approved by:Mu Abbott03/25/2021 10:50 AM. I, Annie Germain,have reviewed the image(s) and agree with the findings in this report. Electronically signed: Annie Germain. Transcribed by: [email or web address], User Resident: MU MOSES Electronically Signed by: ANNIE GERMAIN @ 03/25/2021 11:41 AM I personally read this/these film(s) with this resident Normal The [facility] Comment on above: Order Comment: evalu ate COMP METABOLIC PANELon 03-25 Albumin [Mass/Vol] 4.4 g/dL Normal 3.5-5.7 [facility] Comment on above: Performed By: #### 0 0121 ####[facility] [facility] [place] [address], [facility] ALKALINE PHOSPH 52 IU/L Normal 34-104 [facility] Comment on above: Performed By: #### 0 0121 ####[facility] [facility] [place] [address], [facility] ALT [Catalytic activity/Vol] 12 U/L Normal 7-52 [facility] Comment on above: Performed By: #### 0 0121 ####[facility] [place] [address], [facility] AST [Catalytic activity/Vol] 13 U/L Normal 13-39 The [facility] Comment on above: Performed By: #### 0 0121 ####[facility] [facility] [address], [place] Bilirubin [Mass/Vol] 0.3 mg/dL Normal 0.3-1.0 [facility] Comment on above: Performed By: #### 0 0121 ####[facility] [place] [address], [facility] Calcium [Mass/Vol] 9.7 mg/dL Normal 8.6-10.3 [facility] Comment on above: Performed By: #### 0 0121 ####[facility] [place] [address], [facility] Chloride [Moles/Vol] 104 mmol/L Normal 98-107 [facility] Comment on above: Performed By: #### 0 0121 ####[facility] [place] [address], [facility] CO2 [Moles/Vol] 30 mmol/L Normal 21-31 [facility] Comment on above: Performed By: #### 0 0121 ####[facility] [place] [address], [place] Creatinine [Mass/Vol] 0.76 mg/dL Normal 0.60-1.20 [facility] Comment on above: Performed By: #### 0 0121 ####[facility] [place] [address], [facility] GFR/1.73 sq M.predicted among blacks MDRD (S/P/Bld) [Vol rate/Area] mL/min/{1.73_m2} Normal >60 The [facility] Comment on above: Performed By: #### 0 0121 ####[facility] [place] [address], [place] GFR/1.73 sq M.predicted among non-blacks MDRD (S/P/Bld) [Vol rate/Area] mL/min/{1.73_m2} Normal >60 The [facility] Comment on above: Performed By: #### 0 0121 ####[facility] [place] [address], [place] Glucose [Mass/Vol] 112 mg/dL High 70-100 [facility] Comment on above: Performed By: #### 0 0121 ####[facility] [place] [address], [place] Potassium [Moles/Vol] 5.1 mmol/L Normal 3.5-5.1 [facility] Comment on above: Performed By: #### 0 0121 ####[facility] [place] [address], [place] Protein [Mass/Vol] 7.5 g/dL Normal 6.0-8.3 [facility] Comment on above: Performed By: #### 0 0121 ####[facility] [place] [address], [place] Sodium [Moles/Vol] 140 mmol/L Normal 136-145 [facility] Comment on above: Performed By: #### 0 0121 ####[facility] [place] [address], [place] Urea nitrogen [Mass/Vol] 10 mg/dL Normal 7-25 [facility] Comment on above: Performed By: #### 0 0121 ####[facility] [place] [address], [place] HEMOGLOBIN A1Con 03-25-2021 Glucose [Moles/Vol] 117 mmol/L Normal [facility] Comment on above: Performed By: #### 3 1791 ####[facility] HbA1c (Bld) [Mass fraction] 5.7 % Normal 4.0-6.0 [facility] Comment on above: Performed By: #### 3 1791 ####[facility] PROTHROMBIN TIMEon 1 INR Coag (PPP) [Relative time] 1.05 {INR} Normal 0.91-1.16 [facility] Comment on above: Result Comment: ACCC P RECOMMENDED INR FOR WARFARIN THERAPY -------- ------- CONDITION INR PROPHYLAXIS OF VENOUS THROMBOSIS 2-3 (HIGH-RISK SURGERY) TREATMENT OF VENOUS THROMBOSIS 2-3 TREATMENT OF PULMONARY EMBOLISM 2-3 PREVENTION OF SYSTEMIC EMBOLISM: 2-3 ACUTE MYOCARDIAL INFARCTION TISSUE HEART VALVES VALVULAR HEART DISEASE ATRIAL FIBRILLATION RECURRENT SYSTEMIC EMBOLISM MECHANICAL HEART VALVE 2.5-3.5 FROM: ORAL ANTICOAGULANTS. MECHANISM OF ACTION, CLINICAL EFFECTIVENESS, AND OPTIMAL THERAPEUTIC RANGE. CHEST 1995;108:231S-246S. Performed By: #### 8 5499 #### [facility] [address] PT Coag (PPP) [Time] 13.7 s Normal 12.3-14.8 [facility] Comment on above: Result Comment: ALL RESULTS MUST BE INTERPRETED WITH RESPECT TO BLOOD DRAWING ARTIFACT OR DILUTION ERROR OF ANTICOAGULANT AT THE TIME OF SAMPLING. Performed By: #### 8 5499 #### [facility] [address] [place] [address], [place] TYPE AND CROSSMATCHon 2020 ABO INTERPRETATION A Normal The [facility] Comment on above: Performed By: #### 3 0965 #### [facility] [address] [place] [address], [place] RH INTERPRETATION Negative Normal The [facility] Comment on above: Performed By: #### 3 0965 #### [facility] [address] [place] [address], [place] URINALYSIS REFLEXon 03-25-20 21 Appearance (U) SL CLOUDY Abnormal CLEAR [facility] Comment on above: Performed By: #### 3 0965 #### [facility] [address] [place] [address], [place] Bilirubin Ql (U) Negative Normal NEGATIVE The [facility] Comment on above: Performed By: #### 3 0965 #### [facility] [address] [place] [address], [place] Color (U) YELLOW Normal YELLOW The [facility] Comment on above: Performed By: #### 3 0965 #### [facility] [address] [place] [address], [place] Glucose Ql (U) Negative Normal NEGATIVE [facility] Comment on above: Performed By: #### 3 0965 #### [facility] [address] [place] [address], [place] Hemoglobin Ql (U) Negative Normal NEGATIVE The [facility] Comment on above: Performed By: #### 3 0965 #### [facility] [address] [place] [address], [place] KETONE Negative Normal NEGATIVE The [facility] Comment on above: Performed By: #### 3 0965 #### [facility] [address] [place] [address], [facility] LEUK KEEGAN Negative Normal NEGATIVE The [facility] Comment on above: Performed By: #### 3 0965 #### [facility] [address] [facility] [place] [address], [facility] MICRO NOT DONE Normal [facility] Comment on above: Result Comment: Micr oscopics not performed on urines with negative chemical reactions unless requested in original order Performed By: #### 3 0965 #### [facility] [address] [place] [address], [facility] Nitrite Ql (U) Negative Normal NEGATIVE [facility] Comment on above: Performed By: #### 3 0965 #### [facility] [address] [place] [address], [facility] pH (U) 7.0 [pH] Normal 5.0-8.0 [facility] Comment on above: Performed By: #### 3 0965 #### [facility] [address] [place] [address], [facility] Protein Ql (U) Negative Normal NEGATIVE [facility] Comment on above: Performed By: #### 3 0965 #### [facility] [address] [place] [address], [facility] SPEC GRAV 1.014 Low 1.015-1.020 [facility] Comment on above: Performed By: #### 3 0965 #### [facility] [address] [place], [place] [address] [place] [address] Cardiovascular Lab Reporton 03-18-2021 Cardiovascular [facility] Report [facility] #: [id number] Department of Physician: Taco Regalado M.D. Division of Service Date: 03/17/2021 Cardiology Birthdate: 1950 Adult Cardiovascular Room #: Services [facility] [address] [place] [address] Cardiovascular Laboratory Report FINAL IMPRESSIONS: 1. 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 2. Normal global left ventricular systolic function. 3. Normal right-sided heart pressures and wedge pressure. 4. Normal cardiac output/cardiac index. Pressured and artery aneurysms. 5. Kruucazf-um-lkbonl systemic hypertension. RECOMMENDATIONS: 1. Consult Cardiothoracic Surgery for coronary artery bypass graft surgery. 2. Aggressive cardiovascular risk factor modification. 3. Optimization of medical management; aspirin, high-intensity statin therapy, which is not tolerated - will add Zetia and consider addition of a PCSK9 inhibitor, beta karmen, and angiotensin-convertin g enzyme inhibitor. 4. Follow up with Dr. Aj in the next 1 to 2 months. 5. Follow up with Dr. Valencia as scheduled. PROCEDURES: Ultrasound-guided access to the right common femoral vein, ultrasound-guided access to right common femoral artery, limited femoral angiography, bilateral selective angiography, right heart catheterization. METHODS: After risks, benefits, and alternatives were explained, written informed consent was obtained. The patient was prepped and draped in usual sterile fashion over the right groin. Using 1% lidocaine solution, local infiltration anesthesia was achieved. Using a modified Seldinger technique and under ultrasound guidance, access to the right common femoral vein and artery was obtained. A 6-Venezuelan 11 cm sheath was placed in each. Angiography via an inner cannula of the micropuncture kit was performed prior to upsizing in the artery. The Paiz catheter was used for right heart catheterization measuring pressures in the right atrium, right ventricle, pulmonary artery, and pulmonary capillary wedge positions. Oxygen saturations were obtained and cardiac output/cardiac index was calculated using the Daysi principle. The Pazi catheter was removed. Bilateral selective coronary angiography was performed using JL4 and JR4 catheters. After reviewing the images, it was elected to conclude the procedure. A 6-Venezuelan MynxGrip closure device was deployed per protocol achieving optimal hemostasis. Overall, the patient tolerated the procedure well. There were no overt complications. She was to be transferred to the holding area in stable condition. FINDINGS: Hemodynamics: RA 6. RV 34/1, 7. PA 34/13 (20). PCWP 13. TPG 7. AO 150/90. Cardiac output 5.64/cardiac index 3.64. AO sat 96%/PA sat 72%. LEFT VENTRICULOGRAPHY: This was not performed. Ejection fraction is normal by noninvasive imaging. CORONARY ARTERIES: Left main coronary artery. This arises from the left coronary cusp. It bifurcates into the left anterior descending and left circumflex coronary arteries. It shows calcific plaque. Left anterior descending coronary artery. This shows a proximal 40% stenosis and a mid vessel 80% stenosis. There is a distal 50% stenosis. It is a long wraparound vessel. A moderate-sized 1st diagonal shows a 60% ostial narrowing, a moderate-sized branching second diagonal shows a 70% eraswaie-nu-vxi vessel stenosis. Left circumflex coronary artery. This shows evidence of a previously placed stent in the proximal portion, extending into a large 1st obtuse marginal. There is a 70% in-stent restenosis at the branch point with AV groove. The obtuse marginal shows an 80% proximal stenosis. Right coronary artery. This is a dominant vessel giving rise to the posterior descending and posterolateral branches. It shows an extensive stented segment in the mid portion. There is a 70% proximal stenosis. There is an 80% stenosis just after the crux of the distal right coronary artery. The ostium of the posterior descending shows a 50% stenosis. Limited femoral angiography: shows mild plaque and anatomy suitable for closure device. INDICATIONS: Unstable angina. Electronically Signed by: Janay Aj M.D. 03/19/2021 10:59 A Janay Aj M.D. Date Dict: 03/17/2021/02:19 P/Janay Aj M.D. Date Trans: 03/18/2021 02:36 A/refugio [id number] cc: Dontae Uribe D.O. [address] [place] [id number] Agustin Valencia D.O. [address] [place] [address] Normal [facility] Consent for COVID Vaccineon 12-29-2020 SARS-CoV-2 (COVID-19) RNA EDA+probe Ql (Unsp spec) [id number]#1 .00CD:127 [facility] Consent for COVID Vaccineon 12-06-2020 SARS-CoV-2 (COVID-19) RNA EDA+probe Ql (Unsp spec) [id number]# 1.00CD:127 [facility] Consent for Treatmenton 11-18 Consent for Treatment [id number]# 1.00CD:127 [facility] Coding Summary.on 12-04-2020 Coding Summary. CODING DATE: 12/04/2020 FINAL [facility] DSC STATUS: PAYOR: Medicare APC DESCRIPTION [employer] - Level 1B ($11-$20) ADMIT DX: REASON FOR VISIT DX: Z23 Encounter for immunization FINAL DX: PRINCIPAL: Z23 Encounter for immunization SECONDARY: PYMT PROC APC STAT DESCRIPTION DOCTOR NAME DATE NOTE: The code number assigned matches the documented diagnosis and / or procedure in the patient's chart. However, the narrative phrase printed from the coding software may appear abbreviated, or result in slightly different terminology. Coded By: Sarah Bernal Date Saved: 12/04/2020 03:11 pm [facility] Vital Signs Date Time Vital Sign Value Performing Clinician Facility 08-16-2023 08:30-0500 Body height 168.91 cm Dontae [facility] Other [facility] Other 08-16-2023 08:30-0500 Body mass index (BMI) [Ratio] 18.31 kg/m2 [employer] Other [facility] Other 08-16-2023 08:30-0500 Body weight 52.25 kg Dontae [employer] Other [facility] Other 08-16-2023 08:30-0500 Diastolic blood pressure 76 mm[Hg] Dontae [employer] Other [facility] Other 08-16-2023 08:30-0500 Respiratory rate 12 /min Dontae Ball Other [facility] Other 08-16-2023 08:30-0500 Systolic blood pressure 155 mm[Hg] Dontae Ball Other [facility] Other 05-12-2023 13:45-0400 Body height 168.91 cm Dontae Ball Other [facility] Other 05-12-2023 13:45-0400 Body mass index (BMI) [Ratio] 18.44 kg/m2 Dontae Ball Other [facility] Other 05-12-2023 13:45-0400 Body weight 52.62 kg Dontae Ball Other [facility] Other 05-12-2023 13:45-0400 Diastolic blood pressure 88 mm[Hg] Dontae Ball Other [facility] Other 05-12-2023 13:45-0400 Respiratory rate 12 /min Dontae Ball Other [facility] Other 05-12-2023 13:45-0400 Systolic blood pressure 138 mm[Hg] Dontae Ball Other [facility] Other 04-22-2023 13:30-0400 Body height 168.91 cm Travis Richter Other [facility] Other 04-22-2023 13:30-0400 Body mass index (BMI) [Ratio] 18.28 kg/m2 Travis Richter Other [facility] Other 04-22-2023 13:30-0400 Body weight 52.16 kg Travis Richter Other [facility] Other 04-22-2023 13:30-0400 Diastolic blood pressure 78 mm[Hg] Travis Richter Other [facility] Other 04-22-2023 13:30-0400 Systolic blood pressure 137 mm[Hg] Travis Richter Other [facility] Other 03-18-2023 09:15-0400 Body height 168.91 cm Dontae Ball Other [facility] Other 03-18-2023 09:15-0400 Body mass index (BMI) [Ratio] 18.25 kg/m2 Dontae Ball Other [facility] Other 03-18-2023 09:15-0400 Body weight 52.07 kg Dontae Ball Other [facility] Other 03-18-2023 09:15-0400 Diastolic blood pressure 77 mm[Hg] Dontae Ball Other [facility] Other 03-18-2023 09:15-0400 Respiratory rate 12 /min Dontae Ball Other [facility] Other 03-18-2023 09:15-0400 Systolic blood pressure 145 mm[Hg] Dontae Ball Other [facility] Other 04-21-2022 15:15-0400 Body height 168.91 cm Travis Richter Other [facility] Other 04-21-2022 15:15-0400 Body mass index (BMI) [Ratio] 18.28 kg/m2 Travis Richter Other [facility] Other 04-21-2022 15:15-0400 Body weight 52.16 kg Travis Richter Other [facility] Other Encounters Encounter Date Encounter Type Care Provider Facility Start: 08-19-2023 End: 08-19-2023 ambulatory Dontae Uribe Other [facility] Other Start: 08-19-2023 Telephone encounter Dontae Uribe [facility] Start: 08-16-2023 End: 08-16-2023 ambulatory Dontae Uribe Other [facility] Other Start: 08-16-2023 Patient encounter procedure Dontae Uribe [facility] Start: 05-27-2023 End: 05-27-2023 ambulatory Dontae Uribe Other [facility] Other Start: 05-27-2023 Telephone encounter Dontae Uribe [facility] Start: 05-12-2023 End: 05-12-2023 ambulatory Dontae Uribe Other [facility] Other Start: 05-12-2023 Office outpatient visit 15 minutes Dontae Uribe [facility] Start: 04-22-2023 End: 04-22-2023 ambulatory Travis Richter Other [facility] Other Start: 04-22-2023 Office outpatient visit 15 minutes Travis Richter [facility] Start: 03-18-2023 End: 03-18-2023 ambulatory Dontae Uribe Other [facility] Other Start: 03-18-2023 Office outpatient visit 15 minutes Dontae Uribe [facility] Start: 03-12-2023 End: 03-12-2023 ambulatory Dontae Uribe Other [facility] Other Start: 03-12-2023 Office outpatient visit 15 minutes Dontae Uribe [facility] Start: 03-09-2023 End: 03-09-2023 ambulatory Dontae Uribe Other [facility] Other Start: 03-09-2023 Telephone encounter Dontae BANUELOS [facility] Start: 01-14-2023 End: 01-14-2023 ambulatory Dontae Uribe Other [facility] Other Start: 01-14-2023 Telephone encounter Dontae BANUELOS [facility] Start: 01-11-2023 End: 01-11-2023 ambulatory Dontae Uribe Other [facility] Other Start: 01-11-2023 Office outpatient visit 15 minutes Dontae Uribe [facility] Start: 11-24-2022 End: 11-25-[address] DONTAE URIBE Facility:[facility] Start: 11-23-2022 End: 11-23-2022 ambulatory [facility] Start: 10-16-2022 End: 10-16-2022 ambulatory Dontae Uribe Other [facility] Other Start: 10-16-2022 Office outpatient visit 15 minutes Dontae Uribe [facility] Start: 10-16-2022 Telephone encounter Dontae BANUELOS [facility] Start: 10-06-2022 End: 10-07-2022 ambulatory TOMÁS GONZALESS Facility:[facility] Start: 09-15-2022 Adult health examination Dontae Uribe Other [facility] Other Start: 07-03-2022 ambulatory TOMÁS PIPPA Facility:[facility] Start: 07-01-2022 End: 07-01-2022 ambulatory TOMÁS DAS [facility] Start: 04-21-2022 End: 04-21-2022 ambulatory Travis Richter Other [facility] Other Start: 04-21-2022 Office outpatient visit 15 minutes Travis Richter [facility] Start: 04-14-2022 End: 04-15-[address] JANAY AJ Facility:[facility] Start: 03-05-2022 End: 03-06-[address] JANAY AJ Facility:[facility] Start: 11-27-2021 End: 11-28-[address] DONTAE URIBE Facility:[facility] Start: 04-02-2021 End: 04-06-2021 Evaluation and management of inpatient FELISA ERIKUNALOR Facility:[email or web address] Start: 03-25-2021 End: 03-26-2021 ambulatory FELISA MARIA E Facility:[facility] [[email or web address]] Start: 03-17-2021 End: 03-18-2021 ambulatory JANAY AJ Facility:[facility] [[email or web address]] Procedures Date Procedure Procedure Detail Performing Clinician Start: 04-02-2021 ASSIST WITH CARDIAC OUTPUT USING BALLOON PUMP, CONTINUOUS FELISA MASROOR Start: 04-02-2021 BYPASS 1 COR ART FRO M L INT MAMMARY, OPEN APPROACH FELISA MASROOR Start: 04-02-2021 BYPASS 4+ COR ART FR OM AORTA WITH AUTOL VN, OPEN APPROACH FELISA MASROOR Start: 04-02-2021 EXCISION OF LEFT SAPHENOUS VEIN, PERC ENDO APPROACH FELISA MASROOR Start: 03-25-2021 Antibody screen FELISA M ASJUAN DIEGO Comment on above: Performed By: #### 3 0965 #### [address] Coronary artery bypa ss graft Dontae Uribe Other Depression screening Kushal Uribe Other Screening for malign ant neoplasm of breast Dontae Uribe Other Immunizations Immunization Date Immunization Notes Care Provider Fa jerald 07-27-2023 influenza, high dose seasonal, preservative-free Dontae Uribe Other [facility] Other 09-17-2021 COVID-19 Vaccine Pfi zer - Documentation Purposes Only Dontae Uribe Other [facility] Other 01-14-2018 diphtheria, tetanus toxoids and acellular pertussis vaccine, unspecified formulation Dontae Uribe Other [facility] Other Payers Date Payer Category Payer Medicare [id number] 1958 Self-pay [id number] 1958 Unknown [id number] 1950 Unknown [id number] 2.16.8 [id number] 1950 Unknown [id number] 2.16.8 [id number] 1950 Unknown [id number] 2.16.8 [id number] 1950 Unknown [id number] 2.16.84 [id number] 1950 Unknown [id number] 2.16.84 [id number] 1950 Unknown [id number] 2.16.84 [id number] 1950 Unknown [id number] 2.16.84 [id number] Unknown [id number] 2.16.84 [id number] Unknown [id number] 2.16.84 [id number] Social History Date Type Detail Facility Unknown if ever smoked [facility] Other Sex Assigned At Sex Assigned At Bir th [facility] Other Clinical Notes 09-20-2012 to 08-16-2023 Note Date & Type Note Facility 08-16-2023 Evaluation note Encounter Date Diagnosis Assessment Notes Jul, Medicare annual wellness visit, subsequent (ICD-10 - Z00.00) Personalized health advice was given to the beneficiary including a written plan for screenings discussed and provided. Advanced care planning reviewed and/or information given as requested. Additional counseling was provided here today in regards to, [ ]. The above visit was performed by [ ], under direct supervision of [ ]. Document reviewed and amended by provider signed below. Jul, ASHD (arteriosclerotic heart disease) (ICD-10 - I25.10) This patient is stable without activity related CP, dyspnea or lightheadedness. They are instructed to continue exercise and AHA diet plan. Continue secondary prevention measures. Jul, Primary hypertension (ICD-10 - I10) This patient is instructed to consume a healthy, low-fat, low-salt diet. They are also encouraged to continue exercise to achieve/maintain a normal BMI. Jul, Paroxysmal atrial fibrillation (ICD-10 - I48.0) This patient is in NSR or rate controlled. This patient is anticoagulated to prevent thromboembolic events. 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 Jul, Pure hypercholesterolemia (ICD-10 - E78.00) Instructed on diet and exercise with continued statin therapy.Discusse d the beneficial effects of lowering cholesterol in reducing the risk for cerebrovascular and cardiovascular disease. Jul, Mild persistent asthma without complication (ICD-10 - J45.30) Instructed to avoid irritants. Jul, Lumbar spondylosis (ICD-10 - M47.816) The patient is instructed to avoid bending, twisting or lifting. They are to use intermittent heat and ice as needed. They may schedule a massage or gentle manipulation. They may safely use Tylenol as needed. Wean off of steroids. If no improvement, would recommend imaging and referral to pain management Jul, Screening mammogram for breast cancer (ICD-10 - Z12.31) Instructed patient on monthly SBE and yearly mammograms. Jul, High risk medication use (ICD-10 - Z79.899) [facility] Other 09-07-2023 Evaluation note* Encounter Date Diagnosis Assessment Notes Treatment Notes Treatment Clinical Notes May, Acute cough (ICD-10 - R05.1) [facility] Other 08-23-2023 Evaluation note* Encounter Date Diagnosis Assessment Notes Treatment Notes Treatment Clinical Notes Apr, Lumbar spondylosis (ICD-10 - M47.816) The patient is instructed to avoid bending, twisting or lifting. They are to use intermittent heat and ice as needed. They may schedule a massage or gentle manipulation. They may safely use Tylenol as needed. Restart Prednisone Refer to PT Apr, Radicular leg pain (ICD-10 - M54.10) Stretching exercises and begin Prednisone Apr, Primary hypertension (ICD-10 - I10) This patient is instructed to consume a healthy, low-fat, low-salt diet. They are also encouraged to continue exercise to achieve/maintain a normal BMI. Patient is instructed on home BP measurements: - rest for 5 minutes w/o talking- positioned w/ feet on floor and arm supported- average best 2/3 readings w/ goal < 135/85 May be increased due to pain [facility] Other 08-03-2023 Evaluation note* Encounter Date Diagnosis Assessment Notes Treatment Notes Treatment Clinical Notes Apr, Abdominal pain (ICD-10 - R10.9) Apr, Dysphagia (ICD-10 - R13.10) Patient reports that she is doing well and will call if things worsen Apr, Constipation (ICD-10 - K59.00) Patient reports that she is doing well off of Linzess Patient reports that she is taking OTC probiotics RTO 1 year [facility] Other 06-29-2023 Evaluation note* Encounter Date Diagnosis Assessment Notes Treatment Notes Treatment Clinical Notes Feb, Migraine with aura and without status migrainosus, not intractable (ICD-10 - G43.109) Discussed preventive measures - diet, exercise, proper sleep routine Aleve for abortive treatment Feb, Disorder of left eustachian tube (ICD-10 - H69.92) Valsalva, saline nasal rinse, Nasocort AQ daily. Restart Pediapred for next 3 days Feb, Mild persistent asthma without complication (ICD-10 - J45.30) Recommend staying indoors, poor air quality. Continue LABA/ICS and SHERLYN as needed [facility] Other 06-23-2023 Evaluation note* Encounter Date Diagnosis Assessment Notes Treatment Notes Treatment Clinical Notes Feb, Acute bronchitis due to other specified organisms (ICD-10 - J20.8) Instructed to use Robitussin or Mucinex for cough, saline or Flonase NS for congestion, Tylenol for pain and fever. Feb, Mild intermittent asthma with acute exacerbation (ICD-10 - J45.21) Increase use of SHERLYN to q 4 hours as needed [facility] Other 06-20-2023 Evaluation note* Encounter Date Diagnosis Assessment Notes Treatment Notes Treatment Clinical Notes Feb, Mild intermittent asthma with acute exacerbation (ICD-10 - J45.21) [facility] Other 04-27-2023 Evaluation note* Encounter Date Diagnosis Assessment Notes Treatment Notes Treatment Clinical Notes Dec, Acute non-recurrent maxillary sinusitis (ICD-10 - J01.00) [facility] Other 04-24-2023 Evaluation note* Encounter Date Diagnosis Assessment Notes Treatment Notes Treatment Clinical Notes Dec, Acute non-recurrent maxillary sinusitis (ICD-10 - J01.00) Instructed to use Robitussin or Mucinex for cough, saline or Flonase NS for congestion, Tylenol for pain and fever. Dec, Mild intermittent asthma with acute exacerbation (ICD-10 - J45.21) Rest, continues w/ antihistamines and inhalers. ER for CP or severe dyspnea. Restart Prednisone as needed [facility] Chief Complaint: Patient here for 5 mo follow up CAD and hypertension. Roselyn DasJOHNSON increased losartan to 50mg daily at last visit in Jun 2022, but she has since gone back to 25mg daily. The higher dose made her feel icky and it didn't agree with me . She had labs in Sep 2022. Chest pain and fatigue are intermittent. HPI: Ambar Brewster is a 72 y.o. female With a history of coronary artery disease, dyslipidemia and hypertension here in routine follow-up Doing well; no new cardiovascular symptoms Cardiology ROS: Review of Systems Constitutional: Positive for malaise/fatigue. Cardiovascular: Positive for chest pain. All other systems reviewed and are negative. Past Medical History She has a past medical history of Coronary artery disease, Hyperlipidemia, and Hypertension. Surgical History She has a past surgical history that includes Cardiac catheterization; Coronary stent placement; Coronary artery bypass graft; Hysterectomy; and Appendectomy. Social History She reports that she has never smoked. She has never used smokeless tobacco. She reports that she does not currently use alcohol. She reports that she does not use drugs. Family History Family History Problem Relation Name Age of Onset Coronary artery disease Mother Coronary artery disease Father Alzheimer's disease Father Allergies Cephalosporins, Penicillins, [id number] reductase inhibitors, and Ciprofloxacin Medications Current Outpatient Medications: albuterol 90 mcg/actuation inhaler, albuterol sulfate HFA 90 mcg/actuation aerosol inhaler INHALE 2 PUFFS EVERY 4 HOURS NEEDED FOR COUGH AND SHORTNESS OF BREATH, Disp: , Rfl: aspirin 81 mg EC tablet, aspirin 81 mg tablet,delayed release TAKE ONE TABLET BY MOUTH EVERY DAY, Disp: , Rfl: carvedilol (Coreg) 25 mg tablet, TAKE ONE TABLET BY MOUTH TWICE A DAY, Disp: 180 tablet, Rfl: 3 evolocumab (Repatha SureClick) 140 mg/mL pen injector, Inject 1 mL under the skin every 30 (thirty) days., Disp: , Rfl: ezetimibe (Zetia) 10 mg tablet, ezetimibe 10 mg tablet TAKE ONE TABLET BY MOUTH DAILY, Disp: , Rfl: furosemide (Lasix) 20 mg tablet, furosemide 20 mg tablet TAKE ONE TABLET BY MOUTH ONCE DAILY, Disp: , Rfl: losartan (Cozaar) 25 mg tablet, TAKE ONE TABLET BY MOUTH DAILY, Disp: 90 tablet, Rfl: 3 losartan (Cozaar) 50 mg tablet, Take 1 tablet (50 mg) by mouth in the morning., Disp: 90 tablet, Rfl: 3 Last Recorded Vitals Patient Vitals for the past 24 hrs: BP Pulse SpO2 Height Weight 11/23/22 1137 145/80 72 98 % 1.676 m (5' 6 ) 52.6 kg (116 lb) Physical Examination: GENERAL: alert and oriented x3, well developed, in no acute distress. HEAD: atraumatic, normocephalic. EYES: JOE, EOMI. NECK: trachea midline, no JVD present, no carotid bruits present. CARDIAC: S1, S2 present. RRR. No murmur, rubs, or gallops. RESPIRATORY: CTAB, no increased effort of breathing, no rales, rhonchi, or wheezing. ABDOMEN: soft, nontender, nondistended. EXTREMITIES: no lower extremity edema, peripheral pulses are 2+ bilaterally. No rash/skin discoloration present. NEURO: strength/sensation equal and symmetric in bilateral upper and lower extremities. PSYCH: appropriate mood, affect, and judgement. Investigations: Labs 10/06/2022: LFTs normal Total cholesterol 131, HDL 56, triglycerides 156, LDL 43.8 Assessment: Coronary artery disease Statin intolerance Essential hypertension Dyslipidemia Plan: Aggressive cardiovascular factor modification Continue optimal medical therapy for coronary artery disease including aspirin, Repatha and Zetia, an angiotensin receptor karmen Continue Lasix; she is to weigh herself daily. If she notices any increase in weight by 3 pounds or more she is to take an extra dose of Lasix Return to clinic in 1 year or sooner should problems arise Janay Aj MD, MPH, [facility] Interventional Cardiology Pager Email: [email or web address]01-27-2023 Evaluation note* Encounter Date Diagnosis Assessment Notes Treatment Notes Treatment Clinical Notes Sep, Acute non-recurrent maxillary sinusitis (ICD-10 - J01.00) Instructed to use Robitussin or Mucinex for cough, saline or Flonase NS for congestion, Tylenol for pain and fever. Sep, Mild persistent asthma without complication (ICD-10 - J45.30) Continue SHERLYN as needed. Sep, ASHD (arteriosclerotic heart disease) (ICD-10 - I25.10) This patient is stable without activity related CP, dyspnea or lightheadedness. They are instructed to continue exercise and AHA diet plan. [facility] Other 01-27-2023 Evaluation note* Encounter Date Diagnosis Assessment Notes Treatment Notes Treatment Clinical Notes Sep, Acute non-recurrent maxillary sinusitis (ICD-10 - J01.00) [facility] Other 10-12-2022 NoteRepatha once/month Continue [facility]ia [facility]10-12-2022 NoteB/p uncontrolled today 181/80 and she states that lately at home b/p has been 130-150 systolic and a little higher than typical. Increase losartan to 50 mg daily for better HTN management Renal function in November and March was normal, will repeat labs with next lab draw Monitor b/p at home and call if remains > 130/80 or for any concerns of lightheadedness/dizziness, [facility]ope[facility]10-[facility]-2022 NoteNo concerning symptoms today Tolerating cardiac rehab well Continue GDMT- ASA, coreg, zetia, and repatha She reports that last month she was having side effects of flu like symptoms - body aches, swollen lymph nodes, and in general feeling yucky after repatha injection- therefore she stopped for 1 month and symptoms resolved. She has taken repatha injection this month and would like to try injection once a month. In light of side effects, and currently LDL reduced from 148 this past November to 33 in March I am agreeable with repatha monthly and repeat labs/lipid level in 3 months [facility] NoteSubjective Ambar Brewster is a 72 y.o. female. Chief Complaint: Patient here for 4 mo follow up Coronary Artery Disease, Hyperlipidemia, and Hypertension. Dr. Aj started her on furosemide at last visit in February 2022. Had liver/lipid profile in February. Says she's noticed her BP has been slightly elevated lately (140-150's). She was off Repatha for awhile because it was making her feel yucky. She is now back on it and wants to know if she can only take in once a month, instead of twice. Denies chest pain and SOB. Still does cardiac rehab at [facility] 3 times a week. Review of Systems Gastrointestinal: Positive for constipation. Objective Physical Exam Vital Signs Ht 1.676 m (5' 6 ) BMI 18.24 kg/m??? Lab Review: Assessment/Plan There were no encounter diagnoses.[facility]10-12-2022 NoteHPI: Ambar Brewster is a 72 y.o. female here for Coronary Artery Disease, Hyperlipidemia, and Hypertension Coronary Artery Disease Pertinent negatives include no chest pain, chest tightness, palpitations or shortness of breath. Risk factors include hyperlipidemia. Hyperlipidemia Pertinent negatives include no chest pain or shortness of breath. Hypertension Pertinent negatives include no chest pain, palpitations or shortness of breath. Patient here for 4 mo follow up Coronary Artery Disease, Hyperlipidemia, and Hypertension. Dr. Aj started her on furosemide at last visit in February 2022. Had liver/lipid profile in February. Says she's noticed her BP has been slightly elevated lately (140-150's). She was off Repatha for awhile because it was making her feel yucky. She is now back on it and wants to know if she can only take in once a month, instead of twice. Denies chest pain and SOB. Still does cardiac rehab at [facility] 3 times a week. Review of Systems Respiratory: Negative for chest tightness and shortness of breath. Cardiovascular: Negative for chest pain and palpitations. All other systems reviewed and are negative. Visit Vitals BP (!) 181/80 (BP Location: Left arm, Patient Position: Sitting) Pulse 77 Ht 1.676 m (5' 6 ) Wt 52.6 kg (116 lb) SpO2 99% BMI 18.72 kg/m??? Smoking Status Never BSA 1.57 m??? Medications: Current Outpatient Medications on File Prior to Visit Medication Sig Dispense Refill albuterol 90 mcg/actuation inhaler albuterol sulfate HFA 90 mcg/actuation aerosol inhaler INHALE 2 PUFFS EVERY 4 HOURS NEEDED FOR COUGH AND SHORTNESS OF BREATH aspirin 81 mg EC tablet aspirin 81 mg tablet,delayed release TAKE ONE TABLET BY MOUTH EVERY DAY carvedilol (Coreg) 25 mg tablet carvedilol 25 mg tablet TAKE ONE TABLET BY MOUTH TWICE A DAY evolocumab (Repatha SureClick) 140 mg/mL pen injector Repatha SureClick 140 mg/mL subcutaneous pen injector INJECT 1 ML EVERY 2 WEEKS BY SUBCUTANEOUS ROUTE. ezetimibe (Zetia) 10 mg tablet ezetimibe 10 mg tablet TAKE ONE TABLET BY MOUTH DAILY furosemide (Lasix) 20 mg tablet furosemide 20 mg tablet TAKE ONE TABLET BY MOUTH ONCE DAILY losartan (Cozaar) 25 mg tablet losartan 25 mg tablet TAKE ONE TABLET BY MOUTH DAILY [DISCONTINUED] linaCLOtide (Linzess) 145 mcg capsule Linzess 145 mcg capsule PRN No current facility-administered medications on file prior to visit. Physical Exam: Constitutional: Appearance: Normal appearance. Without apparent distress HENT: Head: Normocephalic and atraumatic. Nose: Nose normal. Mouth/Throat: Mouth: Mucous membranes are moist. Eyes: Extraocular Movements: Extraocular movements intact. Conjunctiva/sclera: Conjunctivae normal. Neck: Vascular: No JVD. Cardiovascular: Rate and Rhythm: Normal rate and regular rhythm. Pulses: Dorsalis pedis pulses are 3 on the right side and 3on the left side. Posterior tibial pulses are 3 on the right side and 3 on the left side. Heart sounds: Normal heart sounds, S1 normal and S2 normal. Pulmonary: Effort: Pulmonary effort is normal. Breath sounds: Normal breath sounds. Abdominal: General: Bowel sounds are normal. Palpations: Abdomen is soft. Musculoskeletal: General: Normal range of motion. Cervical back: Normal range of motion. Right lower leg: No edema. Left lower leg: No edema. Skin: General: Skin is warm and dry. Capillary Refill: Capillary refill takes less than 2 seconds. Neurological: General: No focal deficit present. Mental Status: She is alert and oriented to person, place, and time. Psychiatric: Mood and Affect: Mood normal. Behavior: Behavior normal. Thought Content: Thought content normal. Judgment: Judgment normal. Labs: Last lab values have been reviewed CV Testing: Assessment/Plan: Coronary atherosclerosis No concerning symptoms today Tolerating cardiac rehab well Continue GDMT- ASA, coreg, zetia, and repatha She reports that last month she was having side effects of flu like symptoms - body aches, swollen lymph nodes, and in general feeling yucky after repatha injection- therefore she stopped for 1 month and symptoms resolved. She has taken repatha injection this month and would like to try injection once a month. In light of side effects, and currently LDL reduced from 148 this past November to 33 in March I am agreeable with repatha monthly and repeat labs/lipid level in 3 months RTC 3 months Benign essential HTN B/p uncontrolled today 181/80 and she states that lately at home b/p has been 130-150 systolic and a little higher than typical. Increase losartan to 50 mg daily for better HTN management Renal function in November and March was normal, will repeat labs with next lab draw Monitor b/p at home and call if remains > 130/80 or for any concerns of lightheadedness/dizziness, syncope Chest pain denied Hyperlipidemia Repatha once/month Continue zetia Repeat labs (more content not included)...[facility] 04-21-2022 Evaluation note* Encounter Date Diagnosis Assessment Notes Treatment Notes Treatment Clinical Notes Apr, Dysphagia (ICD-10 - R13.10) Apr, Schatzki's ring (ICD-10 - Q39.4) Apr, Constipation (ICD-10 - K59.00) CONTINUE MIRALAX PRN CONTINUE COLACE WITHOUT CHANGE RTO ONE YEAR Apr, Abdominal pain (ICD-10 - R10.9) CONTINUE BENTYL WITHOUT CHANGE [facility] Other 08-18-2021 NoteMR#: [id number] I [facility] Pt. Name: Ambar Brewster Admitted: 04/02/2021 Discharged: 04/06/2021 Date of : 1950 Physician: Felisa Hyatt MD DISCHARGE SUMMARY PRIMARY DIAGNOSIS: Multivessel coronary artery disease, essential hypertension. SECONDARY DIAGNOSES: 1. Blood loss anemia. 2. Respiratory insufficiency. 3. Gastroesophageal reflux disease. 4. Cerebrovascular disease. 5. Postoperative atrial fibrillation. SURGERY/PROCEDURE: Coronary artery bypass grafting x5, CAT to LAD, saphenous vein graft to diagonal branch, saphenous vein graft to obtuse marginal branch, saphenous vein graft to posterior descending artery and right posterolateral ventricular branches. Extra complexity because of very fragile aorta requiring saphenous vein patch repair of aorta. SURGERY DATE: 04/02/2021. HOSPITAL COURSE: A 70-year-old female found to have severe multivessel coronary artery disease and unstable angina. She was taken to the operating room for the above-named procedure. She was admitted on the same day of surgery. The surgery was quite complex due to having a very fragile aorta and one of the arteriotomy sites had to be repaired with the saphenous vein patch. She tolerated the procedure well. There were no complications. She was taken from the operating room to the ICU for recovery. She was extubated per fast-track extubation protocol. She progressed well during the postoperative period. On postoperative day #1, she was started on beta-karmen therapy, dual anti-platelet therapy, and statins. Epicardial pacer wires were removed. The Alves catheter and left pleural chest tube were removed as well. She worked with physical and occupational therapy twice daily and did quite well. She demonstrated normal bowel and bladder function. Pain was well controlled. She was able to ambulate well without difficulty. The patient developed postoperative atrial fibrillation, treated with amiodarone. She converted to normal sinus rhythm. CONDITION AT DISCHARGE: Good. Stable. DISCHARGE DISPOSITION: Home with visiting nurse services, home care. DISCHARGE MEDICATIONS PLAN: Home medications continued at discharge: 1. Aspirin 81 mg once daily. 2. Zetia 10 mg once daily. 3. Linzess 145 mcg once daily. 4. Repatha 1 mL subcutaneous every 2 weeks. The following home medications were discontinued: Carvedilol 25 mg twice daily. Amlodipine 5 mg once daily. Clopidogrel 75 mg once daily. NEW MEDICATIONS STARTED DURING HOSPITALIZATION: Amiodarone 200 mg twice daily. Apixaban 5 mg twice daily. Lasix 40 mg once daily. Metoprolol tartrate 25 mg twice daily. Percocet 5/325 mg tablets every 4 hours as needed for pain. DISCHARGE INSTRUCTIONS: Written and verbal instructions were provided regarding activity restrictions and care of surgical incision and wounds. Discussed the importance of strict sternal precautions. Reviewed signs and symptoms to monitor and when to call. We will follow up with Ms. Brewster in the [facility] in 2 weeks' for postoperative evaluation. We will repeat an EKG at that time. The plan is to wean the amiodarone as tolerated based on her heart rate and rhythm. She will also be following up with Cardiology in 1 month and the PCP in 6 weeks. Electronically Signed by: Felisa Hyatt MD 05/07/2021 05:51 P Felisa Hyatt MD I personally saw this patient on the day of the encounter, performed the [place] portion(s) of the service and participated in the management and confirm the resident's documentation. Please note there may be an additional personal documentation from me. Date Dict: 05/07/2021/03:00 P/Edu Shoemaker CNP Date Trans: 05/07/2021 03:44 P/refugio [id number] cc: Dontae Uribe D.O. [address] [place] [address] [facility] [id number] History general Narrative - Reported* Type Description Date Medical History strep infection Medical History colonoscopy 09/2012 Medical History Abdominal pain, generalized Medical History Diverticular disease of colon Medical History Esophageal ulcer due to ingestio n of Medical History Esophageal ulcer with bleeding Medical History Constipation Surgical History C section Surgical History total hysterectomy Surgical History Right STEMI, Surgical History heart caths x3 Surgical History appendectomy Hospitalization History Cardiac Cath and Angiopl asty 01/23/13 Hospitalization History Colonoscopy: clip ulcer GE junction, diverticulitis 09/29/12 Hospitalization History Heart Cath with Right Co ronary Stent 2007 Hospitalization History Total Hysterectomy 1978 Hospitalization History Appendectomy 1968 [facility] Other Evaluation noteNo InformationNort Decoholic Other History general Narrative - Reported* Type Description Date Medical History Acute bronchitis due to other sp ecified organisms Medical History Left lower quadrant abdominal pa in Medical History Menopause Medical History Post-COVID syndrome Medical History Seasonal allergic rhinitis due t o pollen Medical History S/P CABG (coronary artery bypass graft) Medical History Primary osteoarthritis of right shoulder Medical History Age-related osteopor osis without current pathological fracture Medical History Gastroesophageal ref lux disease with esophagitis without hemorrhage Medical History Lumbar spondylosis Medical History Irritable bowel syndrome with co nstipation Medical History Rotator cuff tendinitis, right Medical History Acute strain of neck muscle, ini tial encounter Medical History Hyperlipidemia type II Medical History ASHD (arteriosclerotic heart dis ease) Medical History Essential hypertension Medical History Mild intermittent asthma with ac absentee-shawnee exacerbation Medical History Eczema, dyshidrotic Medical History Paroxysmal atrial fibrillation Medical History Chest wall pain Medical History Acute recurrent maxillary sinusi tis Surgical History C section Surgical History total hysterectomy Surgical History Right STEMI, Surgical History heart caths x3 Surgical History appendectomy Surgical History EGD WITH BALOON DILATION 0 Surgical History CABG, 4-5 [facility] Hospitalization History Cardiac Cath and Angiopl asty 01/23/13 Hospitalization History Colonoscopy: clip ulcer GE junction, diverticulitis 09/29/12 Hospitalization History Heart Cath with Right Co ronary Stent 2007 Hospitalization History Total Hysterectomy 1978 Hospitalization History Appendectomy 1968 [facility] Other History general Narrative - Reported* Type Description Date Medical History Acute bronchitis due to other sp ecified organisms Medical History Left lower quadrant abdominal pa in Medical History Menopause Medical History Post-COVID syndrome Medical History Seasonal allergic rhinitis due t o pollen Medical History S/P CABG (coronary artery bypass graft) Medical History Primary osteoarthritis of right shoulder Medical History Age-related osteopor osis without current pathological fracture Medical History Gastroesophageal ref lux disease with esophagitis without hemorrhage Medical History Lumbar spondylosis Medical History Irritable bowel syndrome with co nstipation Medical History Rotator cuff tendinitis, right Medical History Acute strain of neck muscle, ini tial encounter Medical History Hyperlipidemia type II Medical History ASHD (arteriosclerotic heart dis ease) Medical History Essential hypertension Medical History Mild intermittent asthma with ac absentee-[place] exacerbation Medical History Eczema, dyshidrotic Medical History Paroxysmal atrial fibrillation Medical History Chest wall pain Medical History Acute recurrent maxillary sinusi tis Surgical History C section Surgical History total hysterectomy Surgical History Right STEMI, Surgical History heart caths x3 Surgical History appendectomy Surgical History EGD WITH BALOON DILATION 0 Surgical History CABG, 4-5 [facility]SE[facility] Surgical History EGD 03/10/2022 Hospitalization History Cardiac Cath and Angiopl asty 01/23/13 Hospitalization History Colonoscopy: cli p ulcer GE junction, diverticulitis 09/29/12 Hospitalization History Heart Cath with Right Co ronary Stent 2007 Hospitalization History Total Hysterectomy 1979 Hospitalization History Appendectomy 1968 [employer] Other Summary Purpose Family History No Family History Records FoundNo Family History Records FoundNo Family History Records FoundNo Family History Records FoundNo Family History Records Found Advance Directives No Advanced Directives Records FoundNo Advanced Directives Records FoundNo Advanced Directives Records FoundNo Advanced Directives Records FoundNo Advanced Directives Records Found Additional Source Comments INFORMATION SOURCE (unrecogn ized section and content) DATE CREATED AUTHOR 03/22/2021 [facility] [employer] [facility] DATE CREATED AUTHOR AUTHOR'S ORGANIZ ATION 05/09/2021 [facility] DATE CREATED AUTHOR AUTHOR'S ORGANIZ ATION 03/12/2022 [facility] DATE CREATED AUTHOR AUTHOR'S ORGANIZ ATION 11/25/2022 [facility] DATE CREATED AUTHOR AUTHOR'S ORGANIZ ATION 11/26/2022 [facility] REASON FOR VISIT (unrecogniz ed section and content) PATIENT HERE FOR FOLLOW UP T O EGD ON 03/10/2022 FOR DYSPHAGIA., SHE STOPPED LINZESS DUE TO COST, SHE IS HAPPY ON MIRALAX AND COLACE AND HER BOWELS ARE MOVING NORMALLYsinus congestionNo InformationSinuses- [phone], drainage, thick yellow mucus, left ear painmigraine, not feeling well sincemigraine, not feeling well sincePatient here for 1 yr follow upSciatic Nerve-LegNot Feeling [facility] results FOR RECORDS PERTAINING TO PATIENTS WHO ARE OR HAVE BEEN ENROLLED IN A CHEMICAL DEPENDENCY/SUBSTANCEABUSE PROGRAM, SOME INFORMATION MAY BE OMITTED. This clinical summary was aggregated from multiple sources. Caution should be exercised in using it in the provision of clinical care. This summary normalizes information from multiple sources, and as a consequence, information in this document may materially change the coding, format and clinical context of patient data. In addition, data may be omitted in some cases. CLINICAL DECISIONS SHOULD BE BASED ON THE PRIMARY CLINICAL RECORDS. [employer] [facility]. provides no warranty or guarantee of the accuracy or completeness of information in this document.
[2023-11-26 08:44] LABS: Basophils Absolute Auto 0.1 10^3/uL (0.0-0.1); Basophils Percent Auto 1.1 % (0.2-2.0); Eosinophils Absolute Auto 0.1 10^3/uL (0.0-0.7); Eosinophils Percent Auto 2.2 % (0.9-7.0); Hematocrit 36.1 % (36.0-48.0); Hemoglobin 11.4 g/dL (12.0-16.0); Immature Granulocytes Abs Auto 0.01 10^3/uL (0.00-0.03); Immature Granulocytes Pct Auto 0.2 % (0.0-0.5); Lymphocytes Absolute Auto 1.4 10^3/uL (1.2-3.8); Lymphocytes Percent Auto 21.6 % (20.5-60.0); Mean Corpuscular HGB Conc 31.6 g/dL (29.9-35.2); Mean Corpuscular Hemoglobin 31.1 pg (26.7-34.0); Mean Corpuscular Volume 98.6 fL (81.0-99.0); Mean Platelet Volume 9.7 fL (9.5-13.5); Monocytes Absolute Auto 0.6 10^3/uL (0.3-0.8); Monocytes Percent Auto 9.8 % (1.7-12.0); Neutrophils Absolute Auto 4.2 10^3/uL (1.4-6.5); Neutrophils Percent Auto 65.1 % (43.0-75.0); Platelet Count 268 10^3/uL (150-450); Red Blood Count 3.66 10^6/uL (4.20-5.40); Red Cell Distribution Width 12.7 % (11.0-15.0); White Blood Count 6.4 10^3/uL (4.0-11.0)
[2023-11-26 09:06] LABS: Percent Iron Saturation 40.3 %
== END 2023-11-26 08:22 | disposition home or self-care (01) ==
LOC: LAB 08:21
PROVIDERS: PCP Internal Medicine; Visit Provider Internal Medicine
DX: D64.9 Anemia, unspecified (principal)
CPT/HCPCS: 36415; 82607; 82728; 82746; 83540; 83550; 85025

== ENCOUNTER 2023-12-01 10:16 | Outpatient (OUT) | payer MEDICARE, SELFPAY ==
--- NOTE | 2023-12-01 10:20 | XR_ITS ---
The [place] [id number] Patient Name: SJ HALL MRN: [id number] date: 1950 Sex: F Assigned Patient Location: [facility] Current Patient Location: [facility] Accession/Order Number: [id number] Exam Date: 12/01/2023 10:25 Report Date: 12/02/2023 07:16 At the request of: ABEL ROLAND Procedure: XR lumbar spine 6V w bending EXAMINATION: XR lumbar spine 6V w bending HISTORY: Spondylosis Of Lumbar Spine, Bilateral Hip Pain the COMPARISON: CT abdomen pelvis 02/01/2020 FINDINGS: BONES: Right convex curvature of lumbar spine. Grade 2 anterior listhesis of L4 on 5, 7 mm, without significant change between neutral, flexion, and extension. Mild grade 1 retrolisthesis of L2 on 3 which develops during flexion and extension. Moderate degenerative facet arthropathy L3-4 through L5-S1. DISC SPACES: Moderate marked narrowing L1-2 and L2-3. Moderate narrowing L4-5. PARASPINOUS: Negative. No paraspinous abnormality is seen. OTHER: Negative. XR/XR lumbar spine 6V w bending IMPRESSION: 1. Marked degenerative changes of lumbar spine with multilevel degenerative disc disease, facet arthropathy, anterolisthesis. Allowing for differences in technique, no appreciable significant progression compared to 2019. Electronically authenticated by: KAVITA BARKER Date: 12/02/2023 07:16
--- NOTE | 2023-12-01 10:20 | XR_ITS ---
The [address] [address] Patient Name: SJ HALL MRN: [id number] date: 1950 Sex: F Assigned Patient Location: [facility] Current Patient Location: Accession/Order Number: [id number] Exam Date: 12/01/2023 10:25 Report Date: 12/02/2023 07:09 At the request of: ABEL ROLAND Procedure: XR hip DONNELL PROCEDURE: XR hip DONNELL HISTORY: Spondylosis Of Lumbar Spine, Bilateral Hip Pain COMPARISON: None. FINDINGS: BONES:Mild joint space narrowing involving the right hip. Joint space is relatively preserved on the left. No fractures, dislocation, or bone lesion. SOFT TISSUES:No visible soft tissue swelling. EFFUSION:None visible. OTHER: Negative. XR/XR hip DONNELL IMPRESSION: 1. No acute bone abnormality. 2. Mild degenerative joint disease, right greater than left. Electronically authenticated by: KAVITA BARKER Date: 12/02/2023 07:09
--- OUTSIDE RECORDS SUMMARY | 2023-12-01 10:23 | XMS_ITS | CCD ---
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 Role Phone FELISA HYATT Attending Unavailable ASUNCION, DONTAE Primary Care Unavailable DONTAE URIBE Referring Unavailable MASROOR, FELISA Admitting Unavailable ERIROOR, FELISA Attending Unavailable DONTAE URIBE Primary Care Unavailable DONTAE URIBE Referring Unavailable MASROOR, FELISA Admitting Unavailable MASROOR, FELISA Surgeon Unavailable [place] Procedure Practitioner Unavailab le ELTAJOIE, JANAY Alba [...] HOY, BRANDI Primary Care Unavailable ELTAHAWY, DR ASFHORD Consulting Unavailable Allergies Allergy Classification Reported Allergen(s) Allergy Type Date of Onset Reaction(s) Facility (4 sources) black walnut pollen extract; Translations: [[id number] REDUCTASE INHIBITORS] Drug Allergy 07-31-20 09 [facility] Repository (4 sources) Cephalosporins (Antibiotic); Translations: [CEPHALOSPORINS] Drug allergy (disorder) 07-31-20 09 [facility] Repository (1 source) Ciprofloxacin; Translations: [CIPRO] Drug Allergy 03-27-20 21 [facility]ository (4 sources) Penicillins; Translations: [PENICILLINS] Drug allergy (disorder) 07-31-20 09 [facility]ository (12 sources) Hmg-Coa Reductase Inhibitors (Statins) Propensity to adverse reactions SWELLING [employer] Other (12 sources) Pcn, Cephalasporins Propensity to adverse reactions (Eriberto) 10/07/2012 [facility] [employer] Other (14 sources) Ciprofloxacin; Translations: [CIPROFLOXACIN] Drug Allergy 08-30-20 13 Unknown [facility] Repository (13 sources) Substance with sulfonamide structure and antibacterial mechanism of action (substance) Drug allergy Unknown [employer] Other (2 sources) Sulfonamides (Antibiotic) Drug allergy (disorder) 06-23-20 13 [facility] (6 sources) HMG-CoA reductase inhibitor Drug allergy Unknown [employer] Other (6 sources) Penicillin G Benzathine & Proc Drug allergy 01-15-20 18 Unknown [facility] Other (4 sources) Statins Support *DIETARY PRODUCTS/DIETARY MANAGEME Propensity to adverse reactions 01-15-20 18 Unknown [employer] Other (1 source) Substance with penicillin structure and antibacterial mechanism of action (substance) Drug allergy Unknown [facility] Other (6 sources) Medicinal cephalosporin and acting as antibacterial agent (FN) Drug allergy 01-15-20 18 Unknown [employer] Other (1 source) patient allergy list reviewed by nurse or physicia Propensity to adverse reactions 01-15-20 18 Comment:Done [employer] Other Medications Current Medications Medication Drug Class(es) Dates Sig (Normalized) Sig (Original) [id number] 200 actuat albuterol 0.09 mg/actuat metered dose [...] day before your procedure for 1 days BIN:[id number] PCN: [id number] GROUP:[id number] ID:[id number] Nov, Not-Taking predniSONE 1 mg/ml oral solution [...] Coronary arteriosclerosis; Translations: [Atherosclerotic heart disease of [place] coronary artery without angina pectoris] Onset: 0 [...] fracture] Chronic Other aftercare (1 source) 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 Rigo Julio Basophils/100 WBC (Bld) 0.6 % Normal 0.2-2.0 [facility] Comment on above: Performed By: #### H FPFCBC #### [facility] [address] [address] [address] Rigo Julio EO # 0.1 103/ul Normal 0.0-0.7 [facility] Comment on above: Performed By: #### H FPFCBC #### [facility] [address] [place] [address] Dr. Rigo Julio Eosinophils/100 WBC (Bld) 1.4 % Normal 0.9-7.0 [facility] Comment on above: Performed By: #### H FPFCBC #### [facility] [address] [place] [address] Dr. Rigo Julio Erythrocyte distribution width (RBC) [Ratio] 12.8 % Normal 11.0-15.0 [facility] Comment on above: Performed By: #### H FPFCBC #### [facility] [address] [place] [address] Dr. Rigo Julio Hematocrit (Bld) [Volume fraction] 37.5 % Normal 36.0-48.0 [facility] Comment on above: Performed By: #### H FPFCBC #### [facility] [address] [place] [address] Dr. Rigo Julio Hemoglobin (Bld) [Mass/Vol] 12.3 g/dL Normal 12.0-16.0 [facility] Comment on above: Performed By: #### H FPFCBC #### [facility] [address] [place] [address] Dr. Rigo Julio IG # 0.02 10e3/ul Normal 0.00-0.03 [facility] Comment on above: Performed By: #### H FPFCBC #### [facility] [address] [place] [address] Dr. Rigo Julio IG % 0.3 % Normal 0.0-0.5 [facility] Comment on above: Performed By: #### H FPFCBC #### [facility] [address] [place] [address] Dr. Rigo Julio LYMPH # 1.3 103/ul Normal 1.2-3.8 [facility] Comment on above: Performed By: #### H FPFCBC #### [facility] [address] [place] [address] Dr. Rigo Julio Lymphocytes/100 WBC (Bld) 20.1 % Critically low 20.5-60.0 [facility] Comment on above: Performed By: #### H FPFCBC #### [facility] [address] [place] [address] Dr. Rigo Julio MCH (RBC) [Entitic mass] 31.4 pg Normal 26.7-34.0 [facility] Comment on above: Performed By: #### H FPFCBC #### [facility] [address] [place] [address] Dr. Rigo Julio MCHC (RBC) [Mass/Vol] 32.8 g/dL Normal 29.9-35.2 [facility] Comment on above: Performed By: #### H FPFCBC #### [facility] [address] [place] [address] Dr. Rigo Julio MCV (RBC) [Entitic vol] 95.7 fL Normal 81.0-99.0 [facility] Comment on above: Performed By: #### H FPFCBC #### [facility] [address] [place] [address] Dr. Rigo Julio MONO # 0.5 103/ul Normal 0.3-0.8 [facility] Comment on above: Performed By: #### H FPFCBC #### [facility] [address] [place] [address] Dr. Rigo Julio Monocytes/100 WBC (Bld) 7.3 % Normal 1.7-12.0 [facility] Comment on above: Performed By: #### H FPFCBC #### [facility] [address] [place] [address] Dr. Rigo Julio NEUT # 4.6 103/ul Normal 1.4-6.5 [facility] Comment on above: Performed By: #### H FPFCBC #### [facility] [address] [place] [address] Dr. Rigo Julio Neutrophils/100 WBC (Bld) 70.3 % Normal 43.0-75.0 [facility] Comment on above: Performed By: #### H FPFCBC #### [facility] [address] [address] [address] Rigo Julio Platelet mean volume (Bld) [Entitic vol] 9.6 fL Normal 9.5-13.5 [facility] Comment on above: Performed By: #### H FPFCBC #### [facility] [address] [address] [address] Rigo Julio PLT 272 103/ul Normal 150-450 [facility] Comment on above: Performed By: #### H FPFCBC #### [facility] [address] [address] [address] Rigo Julio RBC 3.92 106/ul Critically low 4.20-5.40 [facility] Comment on above: Performed By: #### H FPFCBC #### [facility] [address] [place] [address] Dr. Rigo Julio WBC 6.5 103/ul Normal 4.0-11.0 [facility] Comment on above: Performed By: #### H FPFCBC #### [facility] [address] [place] [address] [facility] GLYCOHEMOGLOBIN A1Con 11-24-2022 Glucose [Mass/Vol] 114 mg/dL Normal [facility] Comment on above: Performed By: #### H FPFA1C #### [facility] [address] [place] [address] Dr. Rigo Julio HbA1c (Bld) [Mass fraction] 5.6 % Normal 4.5-6.2 [facility] Comment on above: Performed By: #### H FPFA1C #### [facility] [address] [place] [address] Dr. Rigo Julio [facility] Albumin [Mass/Vol] 4.2 g/dL Normal 3.4-5.0 [facility] Comment on above: Performed By: #### H FPF #### [facility] [address] [place] [address] Dr. Rigo Julio Albumin/Globulin [Mass ratio] 1.2 {ratio} Normal [facility] Comment on above: Performed By: #### H FPF #### [facility] [address] [address] [address] Rigo Julio ALP [Catalytic activity/Vol] 76 U/L Normal 46-116 [facility] Comment on above: Performed By: #### H FPF #### [facility] [address] [address] [address] Rigo Julio ALT [Catalytic activity/Vol] 23 U/L Normal 14-59 [facility] Comment on above: Performed By: #### H FPF #### [facility] [address] [address] [address] Rigo Julio AST [Catalytic activity/Vol] 19 U/L Normal 15-37 [facility] Comment on above: Performed By: #### H FPF #### [facility] [address] [address] [address] Rigo Julio Bilirubin [Mass/Vol] 0.4 mg/dL Normal 0.2-1.0 [facility] Comment on above: Performed By: #### H FPF #### [facility] [address] [address] [address] Rigo Julio Calcium [Mass/Vol] 9.2 mg/dL Normal 8.5-10.1 [facility] Comment on above: Performed By: #### H FPF #### [facility] [address] [address] [address] Rigo Julio Chloride [Moles/Vol] 105 mmol/L Normal 98-107 [facility] Comment on above: Performed By: #### H FPF #### [facility] [address] [address] [address] Rigo Julio CHOL-HDL RATIO NORM SEE BELOW Normal [facility] Comment on above: Result Comment: 3.3 - 4.4 LOW RISK 4.4 - 7.1 AVERAGE RISK 7.1 - 11.0 MODERATE RISK >11.0 HIGH RISK Performed By: #### H FPF #### [facility] [address] [address] [address] Rigo Julio Cholesterol [Mass/Vol] 158 mg/dL Normal <=200 [facility] Comment on above: Performed By: #### H FPF #### [facility] [address] [address] [address] Rigo Julio Cholesterol in HDL [Mass/Vol] 59 mg/dL Normal 40-60 [facility] Comment on above: Performed By: #### H FPF #### [facility] [address] [address] [address] Rigo Julio Cholesterol in LDL [Mass/Vol] 69.0 mg/dL Normal [facility] Comment on above: Performed By: #### H FPF #### [facility] [address] [address] [address] Rigo Julio Cholesterol.total/Cho lesterol in HDL [Mass ratio] 2.7 {ratio} Normal [facility] Comment on above: Performed By: #### H FPF #### [facility] [address] [address] [address] Rigo Julio CO2 [Moles/Vol] 30.2 mmol/L Normal 21.0-32.0 [facility] Comment on above: Performed By: #### H FPF #### [facility] [address] [address] [address] Rigo Julio Creatinine [Mass/Vol] 0.79 mg/dL Normal 0.55-1.02 [facility] Comment on above: Performed By: #### H FPF #### [facility] [address] [address] [address] Rigo Julio Globulin (S) [Mass/Vol] 3.6 g/dL Normal [facility] Comment on above: Performed By: #### H FPF #### [facility] [address] [address] [address] Rigo Julio Glucose [Mass/Vol] 99 mg/dL Normal 74-106 [facility] Comment on above: Performed By: #### H FPF #### [facility] [address] [address] [address] Rigo Julio HDL NORMAL > or = 60 mg/dl - LO W CARDIOVASCULAR RISK <40 mg/dl - HIGH CARDIOVASCULAR RISK Normal [facility] Comment on above: Performed By: #### H FPF #### [facility] [address] [address] [address] Rigo Julio LDL CALC NORMAL SEE BELOW Normal [facility] Comment on above: Result Comment: <100 mg/dl OPTIMAL 100 - 129 mg/dl NEAR OR ABOVE OPTIMAL 130 - 159 mg/dl BORDERLINE HIGH 160 - 189 mg/dl HIGH >190 mg/dl VERY HIGH Performed By: #### H FPF #### [facility] [address] [address] [address] Rigo Julio Potassium [Moles/Vol] 4.8 mmol/L Normal 3.5-5.1 [facility] Comment on above: Performed By: #### H FPF #### [facility] [address] [place] [address] Dr. Rigo Julio Protein [Mass/Vol] 7.8 g/dL Normal 6.4-8.2 [facility] Comment on above: Performed By: #### H FPF #### [facility] [address] [place] [address] Dr. Rigo Julio Sodium [Moles/Vol] 143 mmol/L Normal 136-145 [facility] Comment on above: Performed By: #### H FPF #### [facility] [address] [place] [address] Dr. Rigo Julio Triglyceride [Mass/Vol] 150 mg/dL Normal <=150 [facility] Comment on above: Performed By: #### H FPF #### [facility] [address] [address] [address] Rigo Julio TSH 1.255 uIU/mL Normal 0.358-3.740 [facility] Comment on above: Performed By: #### H FPF #### [facility] [address] [address] [address] Rigo Julio Urea nitrogen [Mass/Vol] 11.0 mg/dL Normal 7.0-18.0 [facility] Comment on above: Performed By: #### H FPF #### [facility] [address] [place] [address] Dr. Rigo Julio Urea nitrogen/Creatinine [Mass ratio] 13.9 mg/mg Normal [facility] Comment on above: Performed By: #### H FPF #### [facility] [address] [address] [address] Rigo Julio VLDL CALC 30.0 mg/dL Normal [facility] Comment on above: Performed By: #### H FPF #### [facility] [address] [address] [address] Rigo Julio Office Visiton 11-23-2022 Follow-up visit [id number] Mandy Brewstermichael Champagne 1950 F Date Provider Department Center 11/23/2022 Priscilla[facility]JANAY [facility] Family History Problem Relation Age of Onset Coronary artery disease Mother Coronary artery disease Father Alzheimer's disease Father Family Status - Relation Status Age at Mother Father Level of Service:05371 [place] OFFICE/OUTPATIENT ESTABLISHED LOW MDM 20-29 MIN Reason for Visit and Comments: Coronary Artery Disease [187] Hypertension [817884] Hyperlipidemia [182] Normal [facility] LIPID PROFILEon 10-06-2022 CHOL-HDL RATIO NORM SEE BELOW Normal [facility] Comment on above: Result Comment: 3.3 - 4.4 LOW RISK 4.4 - 7.1 AVERAGE RISK 7.1 - 11.0 MODERATE RISK >11.0 HIGH RISK Performed By: #### L IPID, CMP #### [facility] [address] [place] [address] Dr. Rigo Julio Cholesterol [Mass/Vol] 131 mg/dL Normal <=200 [facility] Comment on above: Performed By: #### L IPID, CMP #### [facility] [address] [place] [address] Dr. Rigo Julio Cholesterol in HDL [Mass/Vol] 56 mg/dL Normal 40-60 [facility] Comment on above: Performed By: #### L IPID, CMP #### [facility] [address] [address] [address] Rigo Julio Cholesterol in LDL [Mass/Vol] 43.8 mg/dL Normal [facility] Comment on above: Performed By: #### L IPID, CMP #### [facility] [address] [address] [address] Rigo Julio Cholesterol.total/Cho lesterol in HDL [Mass ratio] 2.3 {ratio} Normal [facility] Comment on above: Performed By: #### L IPID, CMP #### [facility] [address] [address] [address] Rigo Julio HDL NORMAL > or = 60 mg/dl - LO W CARDIOVASCULAR RISK <40 mg/dl - HIGH CARDIOVASCULAR RISK Normal [facility] Comment on above: Performed By: #### L IPID, CMP #### [facility] [address] [address] [address] Rigo Julio LDL CALC NORMAL SEE BELOW Normal [facility] Comment on above: Result Comment: <100 mg/dl OPTIMAL 100 - 129 mg/dl NEAR OR ABOVE OPTIMAL 130 - 159 mg/dl BORDERLINE HIGH 160 - 189 mg/dl HIGH >190 mg/dl VERY HIGH Performed By: #### L IPID, CMP #### [facility] [address] [address] [address] Rigo Julio Triglyceride [Mass/Vol] 156 mg/dL Critically high <=150 [facility] Comment on above: Performed By: #### L IPID, CMP #### [facility] [address] [address] [address] Rigo Julio VLDL CALC 31.2 mg/dL Normal [facility] Comment on above: Performed By: #### L IPID, CMP #### [facility] [address] [address] [address] Rigo Julio PROF 14(COMP METB)on 023 Albumin [Mass/Vol] 3.7 g/dL Normal 3.4-5.0 [facility] Comment on above: Performed By: #### L IPID, CMP #### [facility] [address] [address] [address] Rigo Julio Albumin/Globulin [Mass ratio] 1.1 {ratio} Normal [facility] Comment on above: Performed By: #### L IPID, CMP #### [facility] [address] [address] [address] Rigo Julio ALP [Catalytic activity/Vol] 80 U/L Normal 46-116 [facility] Comment on above: Performed By: #### L IPID, CMP #### [facility] [address] [address] [address] Rigo Julio ALT [Catalytic activity/Vol] 16 U/L Normal 14-59 [facility] Comment on above: Performed By: #### L IPID, CMP #### [facility] [address] [address] [address] Rigo Julio Anion gap [Moles/Vol] 11.7 mmol/L Normal [facility] Comment on above: Performed By: #### L IPID, CMP #### [facility] [address] [address] [address] Rigo Julio AST [Catalytic activity/Vol] 16 U/L Normal 15-37 [facility] Comment on above: Performed By: #### L IPID, CMP #### [facility] [address] [address] [address] Rigo Julio Bilirubin [Mass/Vol] 0.3 mg/dL Normal 0.2-1.0 [facility] Comment on above: Performed By: #### L IPID, CMP #### [facility] [address] [address] [address] Rigo Julio Calcium [Mass/Vol] 9.3 mg/dL Normal 8.5-10.1 [facility] Comment on above: Performed By: #### L IPID, CMP #### [facility] [address] [address] [address] Rigo Julio Chloride [Moles/Vol] 104 mmol/L Normal 98-107 [facility] Comment on above: Performed By: #### L IPID, CMP #### [facility] [address] [address] [address] Rigo Julio CO2 [Moles/Vol] 30.1 mmol/L Normal 21.0-32.0 [facility] Comment on above: Performed By: #### L IPID, CMP #### [facility] [address] [address] [address] Rigo Julio Creatinine [Mass/Vol] 0.74 mg/dL Normal 0.55-1.02 [facility] Comment on above: Performed By: #### L IPID, CMP #### [facility] [address] [address] [address] Rigo Julio EGFR-AF KOSOVAN >60 Normal >=60 [facility] Comment on above: Performed By: #### L IPID, CMP #### [facility] [address] [address] [address] Rigo Julio EGFR-NON AF KOSOVAN >60 Normal >=60 [facility] Comment on above: Performed By: #### L IPID, CMP #### [facility] [address] [address] [address] Rigo Julio Globulin (S) [Mass/Vol] 3.5 g/dL Normal [facility] Comment on above: Performed By: #### L IPID, CMP #### [facility] [address] [address] [address] Rigo Julio Glucose [Mass/Vol] 105 mg/dL Normal 74-106 [facility] Comment on above: Performed By: #### L IPID, CMP #### [facility] [address] [address] [address] Rigo Julio Potassium [Moles/Vol] 4.8 mmol/L Normal 3.5-5.1 [facility] Comment on above: Performed By: #### L IPID, CMP #### [facility] [address] [address] [address] Rigo Julio Protein [Mass/Vol] 7.2 g/dL Normal 6.4-8.2 [facility] Comment on above: Performed By: #### L IPID, CMP #### [facility] [address] [address] [address] Rigo Julio Sodium [Moles/Vol] 141 mmol/L Normal 136-145 [facility] Comment on above: Performed By: #### L IPID, CMP #### [facility] [address] [address] [address] Rigo Julio Urea nitrogen [Mass/Vol] 13.0 mg/dL Normal 7.0-18.0 [facility] Comment on above: Performed By: #### L IPID, CMP #### [facility] [address] [address] [address] Rigo Julio Urea nitrogen/Creatinine [Mass ratio] 17.6 mg/mg Normal [facility] Comment on above: Performed By: #### L IPID, CMP #### [facility] [address] [address] [address] Rigo Julio 36on 07-06-2022 36 Patient spoke with Jena at [facility] cardiac rehab and had her give me this message: She has gone back down to losartan 25mg daily due to lightheadedness and hypotension. Said her BP has been ok. Jena said her BP this morning at rehab was 128 systolic. Normal [facility] Follow-Upon 07-01-2022 Follow-Up [id number] Angelo Brewster 1950 F Date Provider Department Center 07/01/2022 [facility] Family History Problem Relation Age of Onset Coronary artery disease Mother Coronary artery disease Father Alzheimer's disease Father Family Status - Relation Status Age at Mother Father Level of Service:69681 [place] OFFICE/OUTPATIENT ESTABLISHED LOW MDM 20-29 MIN Reason for Visit and Comments: Coronary Artery Disease [187] Hyperlipidemia [182] Hypertension [161709] Normal [facility] LIPID PROFILEon 04-14-2022 CHOL-HDL RATIO NORM SEE BELOW Normal [facility] Comment on above: Result Comment: 3.3 - 4.4 LOW RISK 4.4 - 7.1 AVERAGE RISK 7.1 - 11.0 MODERATE RISK >11.0 HIGH RISK Performed By: #### L IPID, LIVER #### [facility] [address] [address] [address] Rigo Julio Cholesterol [Mass/Vol] 122 mg/dL Normal <=200 [facility] Comment on above: Performed By: #### L IPID, LIVER #### [facility] [address] [address] [address] Rigo Julio Cholesterol in HDL [Mass/Vol] 58 mg/dL Normal 40-60 [facility] Comment on above: Performed By: #### L IPID, LIVER #### [facility] [address] [address] [address] Rigo Julio Cholesterol in LDL [Mass/Vol] 33.4 mg/dL Normal [facility] Comment on above: Performed By: #### L IPID, LIVER #### [facility] [address] [place] [address] Dr. Rigo Julio Cholesterol.total/Cho lesterol in HDL [Mass ratio] 2.1 {ratio} Normal [facility] Comment on above: Performed By: #### L IPID, LIVER #### [facility] [address] [place] [address] Dr. Rigo Julio HDL NORMAL > or = 60 mg/dl - LO W CARDIOVASCULAR RISK <40 mg/dl - HIGH CARDIOVASCULAR RISK Normal [facility] Comment on above: Performed By: #### L IPID, LIVER #### [facility] [address] [place] [address] Dr. Rigo Julio LDL CALC NORMAL SEE BELOW Normal [facility] Comment on above: Result Comment: <100 mg/dl OPTIMAL 100 - 129 mg/dl NEAR OR ABOVE OPTIMAL 130 - 159 mg/dl BORDERLINE HIGH 160 - 189 mg/dl HIGH >190 mg/dl VERY HIGH Performed By: #### L IPID, LIVER #### [facility] [address] [address] [address] Rigo Julio Triglyceride [Mass/Vol] 153 mg/dL Critically high <=150 [facility] [facility] Comment on above: Performed By: #### L IPID, LIVER #### [facility] [address] [place] [address] Dr. Rigo Julio VLDL CALC 30.6 mg/dL Normal [facility] Comment on above: Performed By: #### L IPID, LIVER #### [facility] [address] [address] [address] Rigo Julio LIVER PROFILEon 04-14-2022 Albumin [Mass/Vol] 3.9 g/dL Normal 3.4-5.0 [facility] Comment on above: Performed By: #### L IPID, LIVER #### [facility] [address] [place] [address] Dr. Rigo Julio Albumin/Globulin [Mass ratio] 1.1 {ratio} Normal [facility] Comment on above: Performed By: #### L IPID, LIVER #### [facility] [address] [place] [address] Dr. Rigo Julio ALP [Catalytic activity/Vol] 76 U/L Normal 46-116 [facility] Comment on above: Performed By: #### L IPID, LIVER #### [facility] [address] [place] [address] Dr. Rigo Julio ALT [Catalytic activity/Vol] 21 U/L Normal 14-59 [facility] Comment on above: Performed By: #### L IPID, LIVER #### [facility] [address] [place] [address] Dr. Rigo Julio AST [Catalytic activity/Vol] 16 U/L Normal 15-37 [facility] Comment on above: Performed By: #### L IPID, LIVER #### [facility] [address] [place] [address] Dr. Rigo Julio BILI, CONJUGATED 0.1 mg/dL Normal 0.0-0.2 [facility] Comment on above: Performed By: #### L IPID, LIVER #### [facility] [address] [place] [address] Dr. Rigo Julio Bilirubin [Mass/Vol] 0.4 mg/dL Normal 0.2-1.0 [facility] Comment on above: Performed By: #### L IPID, LIVER #### [facility] [address] [place] [address] Dr. Rigo Julio Globulin (S) [Mass/Vol] 3.6 g/dL Normal [facility] Comment on above: Performed By: #### L IPID, LIVER #### [facility] [address] [place] [address] Dr. Rigo Julio Protein [Mass/Vol] 7.5 g/dL Normal 6.4-8.2 [facility] Comment on above: Performed By: #### L IPID, LIVER #### [facility] [address] [place] [address] Rigo Sy 03-10-2022 L - -------- Specimen: [id number] Received: 03/10/22 Status: CINDY Veronica Num: [id number] Spec Type: Surgical Subm Dr: Travis Richter MD Tissues: A Esophagus Biopsy (ESOPHAGUS BX) Procedures: HE Stain/2, Gross/Micro L4 -------- Patient Age/Sex Location Account Attending Physician -------- Ambar Brewster 71/F [id number] Travis Richter MD -------- SPEC NUM: [id number] RECD: 03/10/22 STATUS: CINDY MARTIN NUM: [id number] ALEE: 03/10/22 DR: Travis Richter MD ENTERED: 03/10/[address] [facility] DR: SPEC TYPE: Surgical DEPT: S [...] support the above pathologic diagnosis CPT Codes 67108 -------- -------- Specimen: [id number] Received: 03/10/22 Status: CINDY Martin Num: [id number] Spec Type: Surgical Subm Dr: Travis Richter MD Tissues: A Esophagus Biopsy (ESOPHAGUS BX) Procedures: HE Stain/2, Gross/Micro L4 -------- Patient: Ambar Brewster [id number] (Continued) -------- Signed (signature on file) Nadege Cardenas MD 03/11/22 1254 Normal [facility] COVID-19 [facility] 03-06-2022 SARS-CoV-2 (COVID-19) RNA EDA+probe Ql (Unsp spec) Negative Normal Negative [facility] Comment on above: Order Comment: Healt hcare Worker?: N Result Comment: Testing for SARS-CoV-2 by RT-PCR This test was developed and its performance characteristics determined by [employer] and validated at the [facility]. This [...] is terminated or revoked sooner. PERFORMED BY: [facility] [address] [place] [address] PATHOLOGIST LIABILITY CLAIMS REPRESENTATIVE SHARFI ARNOLD M.D. Performed By: #### C OVID 19 [facility] [place] #### [facility] [address] [id number] [facility] PROF 14(COMP METB)on 022 Albumin [Mass/Vol] 3.7 g/dL Normal 3.4-5.0 [facility] Comment on above: Performed By: #### C MP #### [facility] [address] [place] [address] Dr. Rigo Julio Albumin/Globulin [Mass ratio] 1.0 {ratio} Normal [facility] Comment on above: Performed By: #### C MP #### [facility] [address] [place] [address] Dr. Rigo Julio ALP [Catalytic activity/Vol] 79 U/L Normal 46-116 [facility] Comment on above: Performed By: #### C MP #### [facility] [address] [place] [address] Dr. Rigo Julio ALT [Catalytic activity/Vol] 22 U/L Normal 14-59 [facility] Comment on above: Performed By: #### C MP #### [facility] [address] [place] [address] Dr. Rigo Julio Anion gap [Moles/Vol] 10.3 mmol/L Normal [facility] Comment on above: Performed By: #### C MP #### [facility] [address] [place] [address] Dr. Rigo Julio AST [Catalytic activity/Vol] 16 U/L Normal 15-37 [facility] Comment on above: Performed By: #### C MP #### [facility] [address] [place] [address] Dr. Rigo Julio Bilirubin [Mass/Vol] 0.3 mg/dL Normal 0.2-1.0 [facility] Comment on above: Performed By: #### C MP #### [facility] [address] [place] [address] Dr. Rigo Julio Calcium [Mass/Vol] 9.2 mg/dL Normal 8.5-10.1 [facility] Comment on above: Performed By: #### C MP #### [facility] [address] [place] [address] Dr. Rigo Julio Chloride [Moles/Vol] 104 mmol/L Normal 98-107 [facility] Comment on above: Performed By: #### C MP #### [facility] [address] [address] [address] Rigo Julio CO2 [Moles/Vol] 29.7 mmol/L Normal 21.0-32.0 [facility] Comment on above: Performed By: #### C MP #### [facility] [address] [place] [address] Dr. Rigo Julio Creatinine [Mass/Vol] 0.80 mg/dL Normal 0.55-1.02 [facility] Comment on above: Performed By: #### C MP #### [facility] [address] [place] [address] Dr. Rigo Julio EGFR-AF KOSOVAN >60 Normal >=60 [facility] Comment on above: Performed By: #### C MP #### [facility] [address] [place] [address] Dr. Rigo Julio EGFR-NON AF KOSOVAN >60 Normal >=60 [facility] Comment on above: Performed By: #### C MP #### [facility] [address] [place] [address] Dr. Rigo Julio Globulin (S) [Mass/Vol] 3.8 g/dL Normal [facility] Comment on above: Performed By: #### C MP #### [facility] [address] [place] [address] Dr. Rigo Julio Glucose [Mass/Vol] 93 mg/dL Normal 74-106 [facility] Comment on above: Performed By: #### C MP #### [facility] [address] [place] [address] Dr. Rigo Julio Potassium [Moles/Vol] 5.0 mmol/L Normal 3.5-5.1 [facility] Comment on above: Performed By: #### C MP #### [facility] [address] [place] [address] Dr. Rigo Julio Protein [Mass/Vol] 7.5 g/dL Normal 6.4-8.2 [facility] Comment on above: Performed By: #### C MP #### [facility] [address] [place] [address] Dr. Rigo Julio Sodium [Moles/Vol] 139 mmol/L Normal 136-145 [facility] Comment on above: Performed By: #### C MP #### [facility] [address] [place] [address] Dr. Rigo Julio Urea nitrogen [Mass/Vol] 11.0 mg/dL Normal 7.0-18.0 [facility] Comment on above: Performed By: #### C MP #### [facility] [address] [place] [address] Dr. Rigo Julio Urea nitrogen/Creatinine [Mass ratio] 13.8 mg/mg Normal [facility] Comment on above: Performed By: #### C MP #### [facility] [address] [place] [address] [facility] CBC AUTO DIFFon 11-27-2021 BASO # 0.1 103/ul Normal 0.0-0.1 [facility] Comment on above: Performed By: #### H FPFCBC #### [facility] [address] [place] [address] Dr. Rigo Julio Basophils/100 WBC (Bld) 0.9 % Normal 0.2-2.0 [facility] Comment on above: Performed By: #### H FPFCBC #### [facility] [address] [place] [address] Dr. iRgo Julio EO # 0.2 103/ul Normal 0.0-0.7 [facility] Comment on above: Performed By: #### H FPFCBC #### [facility] [address] [place] [address] Dr. Rigo Julio Eosinophils/100 WBC (Bld) 2.7 % Normal 0.9-7.0 [facility] Comment on above: Performed By: #### H FPFCBC #### [facility] [address] [place] [address] Dr. Rigo Julio Erythrocyte distribution width (RBC) [Ratio] 13.5 % Normal 11.0-15.0 [facility] Comment on above: Performed By: #### H FPFCBC #### [facility] [address] [place] [address] Dr. Rigo Julio Hematocrit (Bld) [Volume fraction] 38.8 % Normal 36.0-48.0 [facility] Comment on above: Performed By: #### H FPFCBC #### [facility] [address] [place] [address] Dr. Rigo Julio Hemoglobin (Bld) [Mass/Vol] 12.6 g/dL Normal 12.0-16.0 [facility] Comment on above: Performed By: #### H FPFCBC #### [facility] [address] [place] [address] Dr. Rigo Julio IG # 0.02 10e3/ul Normal 0.00-0.03 [facility] Comment on above: Performed By: #### H FPFCBC #### [facility] [address] [place] [address] Dr. Rigo Julio IG % 0.4 % Normal 0.0-0.5 [facility] Comment on above: Performed By: #### H FPFCBC #### [facility] [address] [place] [address] Dr. Rigo Julio LYMPH # 1.3 103/ul Normal 1.2-3.8 [facility] Comment on above: Performed By: #### H FPFCBC #### [facility] [address] [place] [address] Dr. Rigo Julio Lymphocytes/100 WBC (Bld) 22.8 % Normal 20.5-60.0 [facility] Comment on above: Performed By: #### H FPFCBC #### [facility] [address] [place] [address] Dr. Rigo Julio MCH (RBC) [Entitic mass] 30.5 pg Normal 26.7-34.0 [facility] Comment on above: Performed By: #### H FPFCBC #### [facility] [address] [place] [address] Dr. Rigo Julio MCHC (RBC) [Mass/Vol] 32.5 g/dL Normal 29.9-35.2 [facility] Comment on above: Performed By: #### H FPFCBC #### [facility] [address] [place] [address] Dr. Rigo Julio MCV (RBC) [Entitic vol] 93.9 fL Normal 81.0-99.0 [facility] Comment on above: Performed By: #### H FPFCBC #### [facility] [address] [place] [address] Dr. Rigo Julio MONO # 0.4 103/ul Normal 0.3-0.8 [facility] Comment on above: Performed By: #### H FPFCBC #### [facility] [address] [place] [address] Dr. Rigo Julio Monocytes/100 WBC (Bld) 7.3 % Normal 1.7-12.0 [facility] Comment on above: Performed By: #### H FPFCBC #### [facility] [address] [place] [address] Dr. Rigo Julio NEUT # 3.6 103/ul Normal 1.4-6.5 [facility] Comment on above: Performed By: #### H FPFCBC #### [facility] [address] [place] [address] Dr. Rigo Julio Neutrophils/100 WBC (Bld) 65.9 % Normal 43.0-75.0 [facility] Comment on above: Performed By: #### H FPFCBC #### [facility] [address] [place] [address] Dr. Rigo Julio Platelet mean volume (Bld) [Entitic vol] 9.7 fL Normal 9.5-13.5 [facility] Comment on above: Performed By: #### H FPFCBC #### [facility] [address] [address] [address] Rigo Julio PLT 333 103/ul Normal 150-450 [facility] Comment on above: Performed By: #### H FPFCBC #### [facility] [address] [address] [address] Rigo Julio RBC 4.13 106/ul Critically low 4.20-5.40 [facility] Comment on above: Performed By: #### H FPFCBC #### [facility] [address] [address] [address] Rigo Julio WBC 5.5 103/ul Normal 4.0-11.0 [facility] Comment on above: Performed By: #### H FPFCBC #### [facility] [address] [place] [address] [facility] GLYCOHEMOGLOBIN A1Con 11-27-2021 Glucose [Mass/Vol] 123 mg/dL Normal [facility] Comment on above: Performed By: #### H FPFA1C #### [facility] [address] [place] [address] Dr. Rigo Julio HbA1c (Bld) [Mass fraction] 5.9 % Normal <=6.0 [facility] Comment on above: Performed By: #### H FPFA1C #### [facility] [address] [place] [address] Dr. [facility] Albumin [Mass/Vol] 4.2 g/dL Normal 3.5-5.0 [facility] Comment on above: Performed By: #### L IPID, CMP #### [facility] [address] [address] [address] Rigo Julio Albumin/Globulin [Mass ratio] 1.2 {ratio} Normal [facility] Comment on above: Performed By: #### L IPID, CMP #### [facility] [address] [address] [address] Rgio Julio ALP [Catalytic activity/Vol] 81 U/L Normal 38-126 [facility] Comment on above: Performed By: #### L IPID, CMP #### [facility] [address] [address] [address] Rigo Julio ALT [Catalytic activity/Vol] 23 U/L Normal 9-52 [facility] Comment on above: Performed By: #### L IPID, CMP #### [facility] [address] [address] [address] Rigo Julio AST [Catalytic activity/Vol] 18 U/L Normal 14-36 [facility] Comment on above: Performed By: #### L IPID, CMP #### [facility] [address] [place] [address] Dr. Rigo Julio Bilirubin [Mass/Vol] 0.3 mg/dL Normal 0.2-1.3 [facility] Comment on above: Performed By: #### L IPID, CMP #### [facility] [address] [place] [address] Dr. Rigo Julio Calcium [Mass/Vol] 9.2 mg/dL Normal 8.4-10.2 [facility] Comment on above: Performed By: #### L IPID, CMP #### [facility] [address] [place] [address] Dr. Rigo Julio Chloride [Moles/Vol] 102 mmol/L Normal 98-107 [facility] Comment on above: Performed By: #### L IPID, CMP #### [facility] [address] [place] [address] Dr. Rigo Julio CHOL-HDL RATIO NORM SEE BELOW Normal [facility] Comment on above: Result Comment: 3.3 - 4.4 LOW RISK 4.4 - 7.1 AVERAGE RISK 7.1 - 11.0 MODERATE RISK >11.0 HIGH RISK Performed By: #### L IPID, CMP #### [facility] [address] [place] [address] Dr. Rigo Julio Cholesterol [Mass/Vol] 220 mg/dL Critically high <=200 [facility] Comment on above: Performed By: #### L IPID, CMP #### [facility] [address] [place] [address] Dr. Rigo Julio Cholesterol in HDL [Mass/Vol] 54 mg/dL Normal [facility] Comment on above: Performed By: #### L IPID, CMP #### [facility] [address] [place] [address] Dr. Rigo Julio Cholesterol in LDL [Mass/Vol] 141.6 mg/dL Normal [facility] Comment on above: Performed By: #### L IPID, CMP #### [facility] [address] [place] [address] Dr. Rigo Julio Cholesterol.total/Cho lesterol in HDL [Mass ratio] 4.1 {ratio} Normal [facility] Comment on above: Performed By: #### L IPID, CMP #### [facility] [address] [place] [address] Dr. Rigo Julio CO2 [Moles/Vol] 28.4 mmol/L Normal 22.0-30.0 [facility] Comment on above: Performed By: #### L IPID, CMP #### [facility] [address] [place] [address] Dr. Rigo Julio Creatinine [Mass/Vol] 0.84 mg/dL Normal 0.52-1.04 [facility] Comment on above: Performed By: #### L IPID, CMP #### [facility] [address] [place] [address] Dr. Rigo Julio Globulin (S) [Mass/Vol] 3.6 g/dL Normal [facility] Comment on above: Performed By: #### L IPID, CMP #### [facility] [address] [place] [address] Dr. Rigo Julio Glucose [Mass/Vol] 103 mg/dL Normal 74-106 [facility] Comment on above: Performed By: #### L IPID, CMP #### [facility] [address] [place] [address] Dr. Rigo Julio HDL NORMAL > or = 60 mg/dl - LO W CARDIOVASCULAR RISK <40 mg/dl - HIGH CARDIOVASCULAR RISK Normal [facility] Comment on above: Performed By: #### L IPID, CMP #### [facility] [address] [address] [address] Rigo Julio LDL CALC NORMAL SEE BELOW Normal [facility] Comment on above: Result Comment: <100 mg/dl OPTIMAL 100 - 129 mg/dl NEAR OR ABOVE OPTIMAL 130 - 159 mg/dl BORDERLINE HIGH 160 - 189 mg/dl HIGH >190 mg/dl VERY HIGH Performed By: #### L IPID, CMP #### [facility] [address] [address] [address] Rigo Julio Potassium [Moles/Vol] 5.6 mmol/L Critically high 3.4-5.0 [facility] Comment on above: Performed By: #### L IPID, CMP #### [facility] [address] [address] [address] Rigo Julio Protein [Mass/Vol] 7.8 g/dL Normal 6.1-8.2 [facility] Comment on above: Performed By: #### L IPID, CMP #### [facility] [address] [place] [address] Dr. Rigo Julio Sodium [Moles/Vol] 138 mmol/L Normal 137-145 [facility] Comment on above: Performed By: #### L IPID, CMP #### [facility] [address] [place] [address] Dr. Rigo Julio Triglyceride [Mass/Vol] 122 mg/dL Normal <=150 [facility] Comment on above: Performed By: #### L IPID, CMP #### [facility] [address] [place] [address] Dr. Rigo Julio TSH 1.542 uIU/mL Normal 0.470-4.680 [facility] Comment on above: Performed By: #### L IPID, CMP #### [facility] [address] [place] [address] Dr. Rigo Julio Urea nitrogen [Mass/Vol] 10.0 mg/dL Normal 7.0-17.0 [facility] Comment on above: Performed By: #### L IPID, CMP #### [facility] [address] [place] [address] Dr. Rigo Julio Urea nitrogen/Creatinine [Mass ratio] 11.9 mg/mg Normal [facility] Comment on above: Performed By: #### L IPID, CMP #### [facility] [address] [address] [address] Rigo Julio VLDL CALC 24.4 mg/dL Normal [facility] Comment on above: Performed By: #### L IPID, CMP #### [facility] [address] [place], [place] [address] Dr. Rigo Julio POC GLUCOSE LABon 04-06-2021 Glucose [Mass/Vol] 112 mg/dL High 70-100 [facility] Comment on above: Performed By: #### 3 [id number] #### [facility] [address] [place] [address], [facility] Glucose [Mass/Vol] 109 mg/dL High 70-100 [facility] Comment on above: Performed By: #### 5 [id number] #### [facility] [address] [place] [id number], [facility] BASIC METABOLIC PANELon 03-20 Calcium [Mass/Vol] 8.3 mg/dL Low 8.6-10.3 [facility] Comment on above: Order Comment: No: D o not add to previous draw Performed By: #### [id number] #### [facility] [address] [place] [address], [place] Chloride [Moles/Vol] 96 mmol/L Low 98-107 [facility] Comment on above: Order Comment: No: D o not add to previous draw Performed By: #### [id number] #### [facility] [address] [place] [address], [place] CO2 [Moles/Vol] 29 mmol/L Normal 21-31 [facility] Comment on above: Order Comment: No: D o not add to previous draw Performed By: #### [id number] #### [facility] [address] [place] [address], [place] Creatinine [Mass/Vol] 0.60 mg/dL Normal 0.60-1.20 [facility] Comment on above: Order Comment: No: D o not add to previous draw Performed By: #### [id number] #### [facility] [address] [place] [address], [place] GFR/1.73 sq M.predicted among blacks MDRD (S/P/Bld) [Vol rate/Area] mL/min/{1.73_m2} Normal >60 [facility] Comment on above: Order Comment: No: D o not add to previous draw Performed By: #### [id number] #### [facility] [address] [place] [address], [place] GFR/1.73 sq M.predicted among non-blacks MDRD (S/P/Bld) [Vol rate/Area] mL/min/{1.73_m2} Normal >60 [facility] Comment on above: Order Comment: No: D o not add to previous draw Performed By: #### [id number] #### [facility] [address] [place] [address], [place] Glucose [Mass/Vol] 100 mg/dL Normal 70-100 [facility] Comment on above: Order Comment: No: D o not add to previous draw Performed By: #### [id number] #### [facility] [address] [place] [address], [place] Potassium [Moles/Vol] 4.2 mmol/L Normal 3.5-5.1 [facility] Comment on above: Order Comment: No: D o not add to previous draw Performed By: #### [id number] #### [facility] [address] [place] [address], [place] Sodium [Moles/Vol] 132 mmol/L Low 136-145 [facility] Comment on above: Order Comment: No: D o not add to previous draw Performed By: #### [id number] #### [facility] [address] [place] [address], [facility] Urea nitrogen [Mass/Vol] 13 mg/dL Normal 7-25 [facility] Comment on above: Order Comment: No: D o not add to previous draw Performed By: #### [id number] #### [facility] [address] [place] [address], [facility] CBC COMPLETE BLOOD COUNTon 0 - Erythrocyte distribution width (RBC) [Ratio] 14.6 % Normal 11.5-15.0 [facility] Comment on above: Order Comment: No: D o not add to previous draw Performed By: #### [id number] #### [facility] [address] [place] [id number], [facility] Hematocrit (Bld) [Volume fraction] 30.4 % Low 36.0-45.0 [facility] Comment on above: Order Comment: No: D o not add to previous draw Performed By: #### [id number] #### [facility] [address] [place] [address], [facility] Hemoglobin (Bld) [Mass/Vol] 10.2 g/dL Low 12.0-15.0 [facility] Comment on above: Order Comment: No: D o not add to previous draw Performed By: #### [id number] #### [facility] [address] [place] [address], [facility] MCH (RBC) [Entitic mass] 30.5 pg Normal 27.0-33.0 [facility] Comment on above: Order Comment: No: D o not add to previous draw Performed By: #### [id number] #### [facility] [address] [place] [id number], [facility] MCHC (RBC) [Mass/Vol] 33.6 g/dL Normal 32.0-35.0 [facility] Comment on above: Order Comment: No: D o not add to previous draw Performed By: #### [id number] #### [facility] [address] [place] [address], [facility] MCV (RBC) [Entitic vol] 91.0 fL Normal 82.0-98.0 [facility] [facility] Comment on above: Order Comment: No: D o not add to previous draw Performed By: #### 8 [id number] #### [facility] [address] [place] [address], [facility] Nucleated RBC/100 WBC (Bld) [Ratio] 0 % Normal 0-0 [facility] Comment on above: Order Comment: No: D o not add to previous draw Performed By: #### 8 [id number] #### [facility] [address] [place] [address], [facility] PLAT CNT 124 10*3/uL Low 150-400 [facility] Comment on above: Order Comment: No: D o not add to previous draw Performed By: #### 8 [id number] #### [facility] [address] [facility] [place] [address], [facility] RBC (Bld) [#/Vol] 3.34 10*6/uL Low 3.80-5.00 [facility] Comment on above: Order Comment: No: D o not add to previous draw Performed By: #### 8 [id number] #### [facility] [address] [facility] [place] [address], [facility] WBC (Bld) [#/Vol] 13.12 10*3/uL High 4.00-10.60 [facility] Comment on above: Order Comment: No: D o not add to previous draw Performed By: #### 8 [id number] #### [facility] [address] [place] [address], [facility] MAGNESIUM BLOODon 04-05-2021 Magnesium [Mass/Vol] 1.8 mg/dL Low 1.9-2.7 [facility] Comment on above: Order Comment: No: D o not add to previous draw Performed By: #### 8 [id number] #### [facility] [address] [place] [address], [place] POC GLUCOSE LABon 04-05-2021 Glucose [Mass/Vol] 144 mg/dL High 70-100 [facility] Comment on above: Performed By: #### 3 1595 #### [facility] [address] [place] [address], [place] Glucose [Mass/Vol] 117 mg/dL High 70-100 [facility] Comment on above: Performed By: #### 5 0103 #### [facility] [address] [place] [address], [place] Glucose [Mass/Vol] 125 mg/dL High 70-100 [facility] Comment on above: Performed By: #### 5 0103 #### [facility] [address] [facility] [place] [address], [place] Glucose [Mass/Vol] 108 mg/dL High 70-100 [facility] Comment on above: Performed By: #### 5 0103 #### [facility] [address] [facility] [address], [place] Glucose [Mass/Vol] 116 mg/dL High 70-100 The [facility] Comment on above: Performed By: #### 5 0103 #### [facility] [address] [facility] [place] [address], [facility] PORTABLE CHEST 1 VIEWon 03-20 PORTABLE CHEST 1 VIEW [facility] Department of Radiology [address] [place] [address] Patient Name: AMBAR BREWSTER : 1950 Sex: F Age: Race: White Pt. Location: [place] [address] Patient Status: I Ordered Date: 04/05/2021 5:00:00 [...] therapy Electronically signed: Pam Ennis. Transcribed by: [email or web address], User Resident: Electronically Signed by: PAM ENNIS @ 04/05/2021 08:58 AM Normal [facility] Comment on above: Order Comment: evalu ate for Atelectasis BASIC METABOLIC PANELon - Calcium [Mass/Vol] 8.6 mg/dL Normal 8.6-10.3 The [facility] Comment on above: Order Comment: No: D o not add to previous draw Performed By: #### 3 0965 #### [facility] [address] [place] [address], [place] Chloride [Moles/Vol] 99 mmol/L Normal 98-107 [facility] Comment on above: Order Comment: No: D o not add to previous draw Performed By: #### 3 0965 #### [facility] [address] [place] [address], [place] CO2 [Moles/Vol] 25 mmol/L Normal 21-31 [facility] Comment on above: Order Comment: No: D o not add to previous draw Performed By: #### 3 0965 #### [facility] [address] [place] [address], [place] Creatinine [Mass/Vol] 0.60 mg/dL Normal 0.60-1.20 [facility] Comment on above: Order Comment: No: D o not add to previous draw Performed By: #### 3 0965 #### [facility] [address] [place] [address], [place] GFR/1.73 sq M.predicted among blacks MDRD (S/P/Bld) [Vol rate/Area] mL/min/{1.73_m2} Normal >60 [facility] Comment on above: Order Comment: No: D o not add to previous draw Performed By: #### 3 0965 #### [facility] [address] [place] [address], [place] GFR/1.73 sq M.predicted among non-blacks MDRD (S/P/Bld) [Vol rate/Area] mL/min/{1.73_m2} Normal >60 [facility] Comment on above: Order Comment: No: D o not add to previous draw Performed By: #### 3 0965 #### [facility] [address] [place] [address], [place] Glucose [Mass/Vol] 111 mg/dL High 70-100 [facility] Comment on above: Order Comment: No: D o not add to previous draw Performed By: #### 3 0965 #### [facility] [address] [place] [address], [facility] Potassium [Moles/Vol] 4.0 mmol/L Normal 3.5-5.1 [facility] Comment on above: Order Comment: No: D o not add to previous draw Performed By: #### 3 0965 #### [facility] [address] [place] [address], [place] Sodium [Moles/Vol] 130 mmol/L Low 136-145 [facility] Comment on above: Order Comment: No: D o not add to previous draw Performed By: #### 3 0965 #### [facility] [address] [place] [address], [facility] Urea nitrogen [Mass/Vol] 15 mg/dL Normal 7-25 [facility] Comment on above: Order Comment: No: D o not add to previous draw Performed By: #### 3 0965 #### [facility] [address] [place] [address], [facility] CBC COMPLETE BLOOD COUNTon 0 - Erythrocyte distribution width (RBC) [Ratio] 15.7 % High 11.5-15.0 [facility] Comment on above: Order Comment: No: D o not add to previous draw Performed By: #### 8 [id number] #### [facility] [address] [place] [address], [place] Hematocrit (Bld) [Volume fraction] 30.1 % Low 36.0-45.0 [facility] Comment on above: Order Comment: No: D o not add to previous draw Performed By: #### 8 [id number] #### [facility] [address] [place] [address], [place] Hemoglobin (Bld) [Mass/Vol] 10.0 g/dL Low 12.0-15.0 [facility] Comment on above: Order Comment: No: D o not add to previous draw Performed By: #### 8 5499 #### [facility] [address] [facility] [place] [address], [facility] IMM PLATELET FRAC 5.8 % Normal 0.8-6.3 [facility] Comment on above: Order Comment: No: D o not add to previous draw Performed By: #### 8 5499 #### [facility] [address] [facility]. [address] MCH (RBC) [Entitic mass] 29.9 pg Normal 27.0-33.0 [facility] Comment on above: Order Comment: No: D o not add to previous draw Performed By: #### 8 5499 #### [facility] [address] [place] [address], [facility] MCHC (RBC) [Mass/Vol] 33.2 g/dL Normal 32.0-35.0 [facility] Comment on above: Order Comment: No: D o not add to previous draw Performed By: #### 8 [id number] #### [facility] [address] [facility] [place] [address], [facility] MCV (RBC) [Entitic vol] 89.9 fL Normal 82.0-98.0 [facility] Comment on above: Order Comment: No: D o not add to previous draw Performed By: #### 8 5499 #### [facility] [address] [facility]. [address] Nucleated RBC/100 WBC (Bld) [Ratio] 0 % Normal 0-0 [facility] Comment on above: Order Comment: No: D o not add to previous draw Performed By: #### 8 5499 #### [facility] [address] [facility] [place] [address], [facility] PLAT CNT 119 10*3/uL Low 150-400 [facility] Comment on above: Order Comment: No: D o not add to previous draw Performed By: #### 8 [id number] #### [facility] [address] [place] [address], [place] RBC (Bld) [#/Vol] 3.35 10*6/uL Low 3.80-5.00 [facility] Comment on above: Order Comment: No: D o not add to previous draw Performed By: #### 8 5499 #### [facility] [address] [place] [address], [place] WBC (Bld) [#/Vol] 16.59 10*3/uL High 4.00-10.60 [facility] Comment on above: Order Comment: No: D o not add to previous draw Performed By: #### 8 5499 #### [facility] [address] [place] [address], [facility] MAGNESIUM BLOODon 04-04-2021 Magnesium [Mass/Vol] 1.7 mg/dL Low 1.9-2.7 [facility] Comment on above: Order Comment: No: D o not add to previous draw Performed By: #### 3 0965 #### [facility] [address] [place] [address], [facility] POC GLUCOSE LABon 04-04-2021 Glucose [Mass/Vol] 183 mg/dL High 70-100 [facility] Comment on above: Performed By: #### 8 5499 #### [facility] [address] [place] [address], [place] Glucose [Mass/Vol] 132 mg/dL High 70-100 [facility] Comment on above: Performed By: #### 3 1595 #### [facility] [address] [place] [address], [place] Glucose [Mass/Vol] 104 mg/dL High 70-100 [facility] Comment on above: Performed By: #### 8 5499 #### [facility] [address] [place] [address], [facility] Glucose [Mass/Vol] 121 mg/dL High 70-100 [facility] Comment on above: Performed By: #### 8 5499 #### [address] PORTABLE CHEST 1 VIEWon 03-20 PORTABLE CHEST 1 VIEW [facility] Department of Radiology [address] [place] [id number] Patient Name: AMBAR BREWSTER : 1950 Sex: F Age: Race: White Pt. Location: [place] [address] Patient Status: I Ordered Date: 04/04/2021 5:00:00 [...] today. Electronically signed: Roney Vigil. Transcribed by: [email or web address], User Resident: Electronically Signed by: RONEY VIGIL @ 04/04/2021 06:56 AM Normal [facility] Comment on above: Order Comment: Atele ctasis APTTon 04-03-2021 aPTT Coag (Bld) [Time] 33.2 s Normal 25.0-35.0 [facility] Comment on above: Order Comment: post [...] PURPOSE. Performed By: #### 8 5499 #### [facility] [address] BASIC METABOLIC PANELon 03-20 Calcium [Mass/Vol] 8.5 mg/dL Low 8.6-10.3 [facility] Comment on above: Order Comment: Check Chest Tube Position, ON ARRIVAL TO CVU Performed By: #### 0 0071, 35701 ####[facility] [place] [address], [facility] Chloride [Moles/Vol] 107 mmol/L Normal 98-107 [facility] Comment on above: Order Comment: Check Chest Tube Position, ON ARRIVAL TO CVU Performed By: #### 0 0071, 96034 ####[facility] [place] [address], [facility] CO2 [Moles/Vol] 26 mmol/L Normal 21-31 [facility] Comment on above: Order Comment: Check Chest Tube Position, ON ARRIVAL TO CVU Performed By: #### 0 0071, 31167 ####[facility] [place] [address], [facility] Creatinine [Mass/Vol] 0.56 mg/dL Low 0.60-1.20 [facility] Comment on above: Order Comment: Check Chest Tube Position, ON ARRIVAL TO CVU Performed By: #### 0 0071, 21899 ####[facility] [place] [address], [place] GFR/1.73 sq M.predicted among blacks MDRD (S/P/Bld) [Vol rate/Area] mL/min/{1.73_m2} Normal >60 [facility] Comment on above: Order Comment: Check Chest Tube Position, ON ARRIVAL TO CVU Performed By: #### 0 0071, 09344 ####[facility] [place] [address], [facility] GFR/1.73 sq M.predicted among non-blacks MDRD (S/P/Bld) [Vol rate/Area] mL/min/{1.73_m2} Normal >60 [facility] Comment on above: Order Comment: Check Chest Tube Position, ON ARRIVAL TO CVU Performed By: #### 0 0071, 15285 ####[facility] [place] [address], [place] Glucose [Mass/Vol] 123 mg/dL High 70-100 [facility] Comment on above: Order Comment: Check Chest Tube Position, ON ARRIVAL TO CVU Performed By: #### 0 0071, 70082 ####[facility] [place] [address], [place] Potassium [Moles/Vol] 4.2 mmol/L Normal 3.5-5.1 [facility] Comment on above: Order Comment: Check Chest Tube Position, ON ARRIVAL TO CVU Performed By: #### 0 0071, 44778 ####[facility] [place] [address], [place] Sodium [Moles/Vol] 137 mmol/L Normal 136-145 [facility] Comment on above: Order Comment: Check Chest Tube Position, ON ARRIVAL TO CVU Performed By: #### 0 0071, 95531 ####[facility] [place] [address], [facility] Urea nitrogen [Mass/Vol] 12 mg/dL Normal 7-25 [facility] Comment on above: Order Comment: Check Chest Tube Position, ON ARRIVAL TO CVU Performed By: #### 0 0071, 84084 ####[facility] [place] [address], [facility] CBC COMPLETE BLOOD COUNTon 0 - Erythrocyte distribution width (RBC) [Ratio] 16.4 % High 11.5-15.0 [facility] Comment on above: Order Comment: post op day 1No: Do not add to previous draw Performed By: #### 8 5499 #### [facility] [address] [place] [address], [facility] Hematocrit (Bld) [Volume fraction] 32.0 % Low 36.0-45.0 [facility] Comment on above: Order Comment: post op day 1No: Do not add to previous draw Performed By: #### 8 5499 #### [facility] [address] [place] [address], [facility] Hemoglobin (Bld) [Mass/Vol] 11.0 g/dL Low 12.0-15.0 [facility] Comment on above: Order Comment: post op day 1No: Do not add to previous draw Performed By: #### 8 5499 #### [facility] [address] [place] [address], [facility] MCH (RBC) [Entitic mass] 30.0 pg Normal 27.0-33.0 [facility] Comment on above: Order Comment: post op day 1No: Do not add to previous draw Performed By: #### 8 5499 #### [facility] [address] [place] [address], [facility] MCHC (RBC) [Mass/Vol] 34.4 g/dL Normal 32.0-35.0 [facility] Comment on above: Order Comment: post op day 1No: Do not add to previous draw Performed By: #### 8 5499 #### [facility] [address] [place] [address], [place] MCV (RBC) [Entitic vol] 87.2 fL Normal 82.0-98.0 [facility] Comment on above: Order Comment: post op day 1No: Do not add to previous draw Performed By: #### 8 5499 #### [facility] [address] [facility] [place] [address], [facility] Nucleated RBC/100 WBC (Bld) [Ratio] 0 % Normal 0-0 [facility] Comment on above: Order Comment: post op day 1No: Do not add to previous draw Performed By: #### 8 5499 #### [facility] [address] [place] [id number], [place] PLAT CNT 125 10*3/uL Low 150-400 [facility] Comment on above: Order Comment: post op day 1No: Do not add to previous draw Performed By: #### 8 5499 #### [facility] [address] [facility] [place] [address], [place] RBC (Bld) [#/Vol] 3.67 10*6/uL Low 3.80-5.00 [facility] Comment on above: Order Comment: post op day 1No: Do not add to previous draw Performed By: #### 8 5499 #### [facility] [address] [place] [address], [place] WBC (Bld) [#/Vol] 14.47 10*3/uL High 4.00-10.60 [facility] Comment on above: Order Comment: post op day 1No: Do not add to previous draw Performed By: #### 8 5499 #### [facility] [address] [place] [address], [facility] COOXIMETRYon 04-03-2021 COHB 2 % Normal [facility] Comment on above: Performed By: #### 3 0965 #### [facility] [address] [place] [address], [place] METHB 1 % Normal [facility] Comment on above: Performed By: #### 3 0965 #### [facility] [address] [place] [address], [facility] Oxygen saturation in Blood 70.5 % Normal 65.0-75.0 [facility] Comment on above: Performed By: #### 3 0965 #### [facility] [address] [place] [address], [facility] THB 11.0 g/dL Normal [facility] Comment on above: Performed By: #### 3 0965 #### [facility] [address] [place] [address], [facility] LACTATE BLOODon 04-03-2021 Lactate [Moles/Vol] 0.9 mmol/L Normal 0.5-2.2 [facility] Comment on above: Order Comment: Check Chest Tube Position, ON ARRIVAL TO CVU Performed By: #### 1 0054 ####[facility] [facility] [place] [address], [facility] MAGNESIUM BLOODon 04-03-2021 Magnesium [Mass/Vol] 2.2 mg/dL Normal 1.9-2.7 [facility] Comment on above: Order Comment: Check Chest Tube Position, ON ARRIVAL TO CVU Performed By: #### 0 0071, 16416 ####[facility] [place] [address], [facility] Operative Reporton Operative Report MR#: [id number] I [facility] Pt. Name: Ambar Brewster Room #: NAYE [id number] Discharge Date: Birthdate: 1950 OPERATIVE REPORT DATE [...] harvesting of the left greater saphenous vein. MACHINE OPERATIONS SUPERVISOR: Ernestina. ANESTHESIA: General with endotracheal intubation. ANESTHESIOLOGIST: [...] and ascending aorta was cannulated with an 18-[place]ian Opti cannula using Seldinger technique. This was [...] to the posterior descending artery and a [id number]-[id number] anastomosis was constructed in a cruciate fashion [...] p (more content not included)... Normal [facility] POC GLUCOSE LABon 04-03-2021 Glucose [Mass/Vol] 133 mg/dL High 70-100 [facility] Comment on above: Performed By: #### 3 1595 #### [facility] [address] [place] [address], [place] Glucose [Mass/Vol] 112 mg/dL High 70-100 [facility] Comment on above: Performed By: #### 3 1595 #### [facility] [address] [place] [address], [place] Glucose [Mass/Vol] 120 mg/dL High 70-100 [facility] Comment on above: Performed By: #### 8 5499 #### [facility] [address] [place] [address], [place] Glucose [Mass/Vol] 123 mg/dL High 70-100 [facility] Comment on above: Performed By: #### 3 1595 #### [facility] [address] [place] [address], [place] Glucose [Mass/Vol] 105 mg/dL High 70-100 [facility] Comment on above: Performed By: #### 8 5499 #### [facility] [address] [place] [address], [place] Glucose [Mass/Vol] 127 mg/dL High 70-100 [facility] Comment on above: Performed By: #### 3 1595 #### [facility] [address] [place] [address], [place] Glucose [Mass/Vol] 154 mg/dL High 70-100 [facility] Comment on above: Performed By: #### 3 1595 #### [facility] [address] [place] [address], [place] Glucose [Mass/Vol] 149 mg/dL High 70-100 [facility] Comment on above: Performed By: #### 3 1595 #### [address] [address] PORTABLE CHEST 1 VIEWon 03-20 PORTABLE CHEST 1 VIEW [facility] Department of Radiology [address] [place] [id number] Patient Name: AMBAR BREWSTER : 1950 Sex: F Age: Race: White Pt. Location: [place] [address] Patient Status: I Ordered Date: 04/03/2021 5:30:00 [...] of median sternotomy. Removal of previously seen Dallas-Ayan catheter, mediastinal drain, left basilar chest tube. [...] of interpretation (04/03/2021 7:16 PM) by Dr. Densie Patel. Electronically signed: DENISE PATEL. Transcribed by: [email or web address], User Resident: Electronically Signed by: DENISE PATEL @ 04/03/2021 07:17 PM Normal [facility] Comment on above: Order Comment: evalu ate for Pneumothorax PORTABLE CHEST 1 VIEW [facility] Department of Radiology [address] [place] [id number] Patient Name: AMBAR BREWSTER : 1950 Sex: F Age: Race: White Pt. Location: [place] [address] Patient Status: I Ordered Date: 04/03/2021 7:00:00 [...] tube and NG tube have been removed, Dallas-Ayan catheter tip remains in the pulmonary outflow tract. Mediastinal and left-sided chest tubes remain no pneumothorax identified. Minimal bibasilar atelectasis suggested, otherwise lungs IMPRESSION: Status post extubation. Minimal atelectasis over both lung bases. No change in chest tubes. Electronically signed: Roney Vigil. Transcribed by: [email or web address], User Resident: Electronically Signed by: RONEY VIGIL @ 04/03/2021 09:03 AM Normal [facility] Comment on above: Order Comment: evalu ate Chest Tube Position PROTHROMBIN TIMEon 1 INR Coag (PPP) [Relative time] 1.33 {INR} High 0.91-1.16 [facility] Comment on above: Order Comment: post [...] 1995;[id number]. Performed By: #### 8 5499 #### [address] PT Coag (PPP) [Time] 16.5 s High 12.3-14.8 [facility] Comment on above: Order Comment: post op day 1No: Do not add to previous draw Result Comment: ALL RESULTS MUST BE INTERPRETED WITH RESPECT TO BLOOD DRAWING ARTIFACT OR DILUTION ERROR OF ANTICOAGULANT AT THE TIME OF SAMPLING. Performed By: #### 8 5499 #### [facility] [address] [place] [address], [place] ACTIVATED CLOTTING TIMEon ACTIVATED CLOTTING TIME 121 sec Normal 82-152 [facility] Comment on above: Performed By: #### 8 5499 #### [facility] [address] [place] [address], [place] ACTIVATED CLOTTING TIME 126 sec Normal 82-152 [facility] Comment on above: Performed By: #### 8 5499 #### [facility] [address] [place] [address], [place] ACTIVATED CLOTTING TIME 132 sec Normal 82-152 [facility] Comment on above: Performed By: #### 3 0739 #### [facility] [address] [place] [address], [place] ACTIVATED CLOTTING TIME 655 sec High 82-152 [facility] Comment on above: Performed By: #### 3 1977 #### [facility] [address] [place] [address], [place] ACTIVATED CLOTTING TIME 484 sec High 82-152 [facility] Comment on above: Performed By: #### 3 1977 #### [facility] [address] [place] [address], [place] ACTIVATED CLOTTING TIME 599 sec High 82-152 [facility] Comment on above: Performed By: #### 8 5499 #### [facility] [address] [place] [address], [place] ACTIVATED CLOTTING TIME 694 sec High 82-152 [facility] Comment on above: Performed By: #### 8 5499 #### [facility] [address] [place] [address], [place] ACTIVATED CLOTTING TIME 484 sec High 82-152 [facility] Comment on above: Performed By: #### 8 5499 #### [facility] [address] [place] [address], [facility] ACTIVATED CLOTTING TIME 416 sec High 82-152 [facility] Comment on above: Performed By: #### 3 1976 #### [facility] [address] [place] [address], [facility] ACTIVATED CLOTTING TIME 121 sec Normal 82-152 [facility] Comment on above: Performed By: #### 3 1976 #### [facility] [address] [place] [address], [facility] APTTon 04-02-2021 aPTT Coag (Bld) [Time] 32.6 s Normal 25.0-35.0 [facility] Comment on above: Order Comment: No: [...] PURPOSE. Performed By: #### 8 [id number] #### [facility] [address] [place] [address], [facility] aPTT Coag (Bld) [Time] 43.1 s High 25.0-35.0 [facility] Comment on above: Result Comment: ALL RESULTS [...] PURPOSE. Performed By: #### 8 [id number] #### [facility] [address] ARTERIAL BLOOD GAS WITH ICAo n 04-02-2021 BASE EXCESS -5 mmol/L Low -2-3 [facility] Comment on above: Performed By: #### 3 0965 #### [facility] [address] [place] [address], [facility] BILEVEL 5 Normal [facility] Comment on above: Performed By: #### 3 0965 #### [facility] [address] [place] [address], [place] DEL[employer]ERY SYSTEMS MV Normal The [facility] Comment on above: Performed By: #### 3 0965 #### [facility] [address] [place] [address], [place] FIO2 40 % Normal [facility] Comment on above: Performed By: #### 3 0965 #### [facility] [address] [place] [address], [place] HCO3 (Bld) [Moles/Vol] 20 mmol/L Low 21-28 [facility] Comment on above: Performed By: #### 3 0965 #### [facility] [address] [place] [address], [place] IONIZED CALCIUM 1.28 mmol/L Normal 1.13-1.32 [facility] Comment on above: Performed By: #### 3 0965 #### [facility] [address] [place] [address], [place] MIN VOLUME 7.1 Normal [facility] Comment on above: Performed By: #### 3 0965 #### [facility] [address] [place] [address], [place] MODALITY SPONT Normal [facility] Comment on above: Performed By: #### 3 0965 #### [facility] [address] [place] [address], [facility] Oxygen (Bld) [Partial pressure] 156 mm[Hg] Critically high 83-108 [facility] Comment on above: Performed By: #### 3 0965 #### [facility] [address] [place] [address], [facility] Oxygen saturation in Blood 97.2 % High 94.0-97.0 [facility] Comment on above: Performed By: #### 3 0965 #### [facility] [address] [place] [address], [facility] PCO2 37 mmHg Normal 35-45 [facility] Comment on above: Performed By: #### 3 0965 #### [facility] [address] [place] [address], [facility] PEEP 6.0 CMH20 Normal [facility] Comment on above: Performed By: #### 3 0965 #### [facility] [address] [place] [address], [facility] pH (Bld) 7.34 [pH] Low 7.35-7.45 [facility] Comment on above: Performed By: #### 3 0965 #### [facility] [address] [facility] [place] [address], [facility] BASE EXCESS -5 mmol/L Low -2-3 [facility] Comment on above: Order Comment: on ar rival to CVU Performed By: #### 8 5499 #### [facility] [address] [place] [address], [facility] DELIVERY SYSTEMS MV Normal [facility] Comment on above: Order Comment: on ar rival to CVU Performed By: #### 8 5499 #### [facility] [address] [place] [address], [facility] FIO2 40 % Normal [facility] Comment on above: Order Comment: on ar rival to CVU Performed By: #### 8 5499 #### [facility] [address] [place] [address], [facility] HCO3 (Bld) [Moles/Vol] 19 mmol/L Low 21-28 [facility] Comment on above: Order Comment: on ar rival to CVU Performed By: #### 8 5499 #### [facility] [address] [place] [address], [facility] IONIZED CALCIUM 1.38 mmol/L High 1.13-1.32 [facility] Comment on above: Order Comment: on ar rival to CVU Performed By: #### 8 5499 #### [facility] [address] [place] [address], [facility] MIN VOLUME 8.0 Normal [facility] Comment on above: Order Comment: on ar rival to CVU Performed By: #### 8 5499 #### [facility] [address] [place] [address], [facility] MODALITY SIMV Normal [facility] Comment on above: Order Comment: on ar rival to CVU Performed By: #### 8 5499 #### [facility] [address] [place] [address], [facility] Oxygen (Bld) [Partial pressure] 192 mm[Hg] Critically high 83-108 [facility] Comment on above: Order Comment: on ar rival to CVU Performed By: #### 8 5499 #### [facility] [address] [place] [address], [facility] Oxygen saturation in Blood 97.6 % High 94.0-97.0 [facility] Comment on above: Order Comment: on ar rival to CVU Performed By: #### 8 5499 #### [facility] [address] [place] [address], [facility] PCO2 31 mmHg Low 35-45 [facility] Comment on above: Order Comment: on ar rival to CVU Performed By: #### 8 5499 #### [facility] [address] [place] [address], [place] PEEP 5.0 CMH20 Normal [facility] Comment on above: Order Comment: on ar rival to CVU Performed By: #### 8 5499 #### [facility] [address] [place] [address], [place] pH (Bld) 7.39 [pH] Normal 7.35-7.45 [facility] Comment on above: Order Comment: on ar rival to CVU Performed By: #### 8 5499 #### [facility] [address] [place] [address], [place] PRESSURE SUPPORT 8 Normal [facility] Comment on above: Order Comment: on ar rival to CVU Performed By: #### 8 5499 #### [facility] [address] [place] [address], [place] Respiratory rate 14 /min Normal [facility] Comment on above: Order Comment: on ar rival to CVU Performed By: #### 8 5499 #### [facility] [address] [place] [address], [facility] TIDAL VOLUME (VT) CC 450 Normal [facility] Comment on above: Order Comment: on ar rival to CVU Performed By: #### 8 5499 #### [facility] [address] [place] [address], [place] BASIC METABOLIC PANELon 07- Calcium [Mass/Vol] 8.8 mg/dL Normal 8.6-10.3 [facility] Comment on above: Order Comment: Check Chest Tube Position, ON ARRIVAL TO CVU Performed By: #### 0 0071, 68404, 13625 ####[facility] [place] [address], [place] Chloride [Moles/Vol] 108 mmol/L High 98-107 [facility] Comment on above: Order Comment: Check Chest Tube Position, ON ARRIVAL TO CVU Performed By: #### 0 0071, 80369, 15933 ####[facility] [place] [address], [place] CO2 [Moles/Vol] 25 mmol/L Normal 21-31 [facility] Comment on above: Order Comment: Check Chest Tube Position, ON ARRIVAL TO CVU Performed By: #### 0 0071, 55970, 68822 ####[facility] [place] [address], [facility] Creatinine [Mass/Vol] 0.57 mg/dL Low 0.60-1.20 [facility] Comment on above: Order Comment: Check Chest Tube Position, ON ARRIVAL TO CVU Performed By: #### 0 0071, 36965, 69366 ####[facility] [place] [address], [facility] GFR/1.73 sq M.predicted among blacks MDRD (S/P/Bld) [Vol rate/Area] mL/min/{1.73_m2} Normal >60 [facility] Comment on above: Order Comment: Check Chest Tube Position, ON ARRIVAL TO CVU Performed By: #### 0 0071, 56450, 03269 ####[facility] [place] [address], [facility] GFR/1.73 sq M.predicted among non-blacks MDRD (S/P/Bld) [Vol rate/Area] mL/min/{1.73_m2} Normal >60 [facility] Comment on above: Order Comment: Check Chest Tube Position, ON ARRIVAL TO CVU Performed By: #### 0 0071, 29572, 14522 ####[facility] [place] [address], [place] Glucose [Mass/Vol] 164 mg/dL High 70-100 [facility] Comment on above: Order Comment: Check Chest Tube Position, ON ARRIVAL TO CVU Performed By: #### 0 0071, 95945, 88766 ####[facility] [place] [address], [place] Potassium [Moles/Vol] 3.8 mmol/L Normal 3.5-5.1 [facility] Comment on above: Order Comment: Check Chest Tube Position, ON ARRIVAL TO CVU Performed By: #### 0 0071, 49643, 07452 ####[facility] [place] [address], [facility] Sodium [Moles/Vol] 139 mmol/L Normal 136-145 [facility] Comment on above: Order Comment: Check Chest Tube Position, ON ARRIVAL TO CVU Performed By: #### 0 0071, 80922, 11685 ####[facility] [place] [address], [facility] Urea nitrogen [Mass/Vol] 10 mg/dL Normal 7-25 [facility] Comment on above: Order Comment: Check Chest Tube Position, ON ARRIVAL TO CVU Performed By: #### 0 0071, 98813, 44974 ####[facility] [place] [address], [facility] Calcium [Mass/Vol] 9.4 mg/dL Normal 8.6-10.3 [facility] Comment on above: Performed By: #### 0 0071, 61532 ####[facility] [place] [address], [facility] Chloride [Moles/Vol] 111 mmol/L High 98-107 [facility] Comment on above: Performed By: #### 0 0071, 99506 ####[facility] [place] [address], [place] CO2 [Moles/Vol] 23 mmol/L Normal 21-31 [facility] Comment on above: Performed By: #### 0 0071, 83347 ####[facility] [place] [address], [place] Creatinine [Mass/Vol] 0.49 mg/dL Low 0.60-1.20 [facility] Comment on above: Performed By: #### 0 0071, 36188 ####[facility] [place] [address], [place] GFR/1.73 sq M.predicted among blacks MDRD (S/P/Bld) [Vol rate/Area] mL/min/{1.73_m2} Normal >60 [facility] Comment on above: Performed By: #### 0 0071, 15503 ####[facility] [place] [address], [place] GFR/1.73 sq M.predicted among non-blacks MDRD (S/P/Bld) [Vol rate/Area] mL/min/{1.73_m2} Normal >60 [facility] Comment on above: Performed By: #### 0 0071, 58819 ####[facility] [place] [address], [place] Glucose [Mass/Vol] 138 mg/dL High 70-100 [facility] Comment on above: Performed By: #### 0 0071, 08560 ####[facility] [place] [address], [place] Potassium [Moles/Vol] 3.9 mmol/L Normal 3.5-5.1 [facility] Comment on above: Performed By: #### 0 0071, 55120 ####[facility] [place] [address], [place] Sodium [Moles/Vol] 140 mmol/L Normal 136-145 [facility] Comment on above: Performed By: #### 0 0071, 36360 ####[facility] [place] [address], [place] Urea nitrogen [Mass/Vol] 8 mg/dL Normal 7-25 [facility] Comment on above: Performed By: #### 0 0071, 44059 ####[facility] [place] [address], [place] CBC COMPLETE BLOOD COUNTon 0 04-02-2021 Erythrocyte distribution width (RBC) [Ratio] 15.9 % High 11.5-15.0 [facility] Comment on above: Order Comment: No: D o not add to previous draw Performed By: #### 8 5499 #### [facility] [address] [place] [address], [facility] Hematocrit (Bld) [Volume fraction] 34.4 % Low 36.0-45.0 [facility] Comment on above: Order Comment: No: D o not add to previous draw Performed By: #### 8 5499 #### [facility] [address] [place] [address], [facility] Hemoglobin (Bld) [Mass/Vol] 11.9 g/dL Low 12.0-15.0 [facility] Comment on above: Order Comment: No: D o not add to previous draw Performed By: #### 8 5499 #### [facility] [address] [place] [address], [place] IMM PLATELET FRAC 3.9 % Normal 0.8-6.3 The [facility] Comment on above: Order Comment: No: D o not add to previous draw Performed By: #### 8 5499 #### [facility] [address] [place] [address], [place] MCH (RBC) [Entitic mass] 30.6 pg Normal 27.0-33.0 [facility] Comment on above: Order Comment: No: D o not add to previous draw Performed By: #### 8 5499 #### [facility] [address] [place] [address], [place] MCHC (RBC) [Mass/Vol] 34.6 g/dL Normal 32.0-35.0 [facility] Comment on above: Order Comment: No: D o not add to previous draw Performed By: #### 8 5499 #### [facility] [address] [place] [address], [place] MCV (RBC) [Entitic vol] 88.4 fL Normal 82.0-98.0 [facility] Comment on above: Order Comment: No: D o not add to previous draw Performed By: #### 8 5499 #### [facility] [address] [place] [id number], [facility] Nucleated RBC/100 WBC (Bld) [Ratio] 0 % Normal 0-0 [facility] Comment on above: Order Comment: No: D o not add to previous draw Performed By: #### 8 5499 #### [facility] [address] [place] [id number], [place] PLAT CNT 140 10*3/uL Low 150-400 [facility] Comment on above: Order Comment: No: D o not add to previous draw Performed By: #### 8 5499 #### [facility] [address] [place] [id number], [facility] RBC (Bld) [#/Vol] 3.89 10*6/uL Normal 3.80-5.00 The [facility] Comment on above: Order Comment: No: D o not add to previous draw Performed By: #### 8 5499 #### [facility] [address] [place] [id number], [place] WBC (Bld) [#/Vol] 19.57 10*3/uL High 4.00-10.60 [facility] Comment on above: Order Comment: No: D o not add to previous draw Performed By: #### 8 5499 #### [facility] [address] [place] [id number], [place] Erythrocyte distribution width (RBC) [Ratio] 14.7 % Normal 11.5-15.0 [facility] Comment on above: Performed By: #### 8 5499 #### [facility] [address] [place] [id number], [place] Hematocrit (Bld) [Volume fraction] 27.3 % Low 36.0-45.0 [facility] Comment on above: Performed By: #### 8 5499 #### [facility] [address] [place] [address], [facility] Hemoglobin (Bld) [Mass/Vol] 9.1 g/dL Low 12.0-15.0 [facility] Comment on above: Performed By: #### 8 5499 #### [facility] [address] [place] [address], [facility] MCH (RBC) [Entitic mass] 30.3 pg Normal 27.0-33.0 [facility] Comment on above: Performed By: #### 8 5499 #### [facility] [address] [place] [address], [facility] MCHC (RBC) [Mass/Vol] 33.3 g/dL Normal 32.0-35.0 [facility] Comment on above: Performed By: #### 8 5499 #### [facility] [address] [place] [address], [facility] MCV (RBC) [Entitic vol] 91.0 fL Normal 82.0-98.0 [facility] Comment on above: Performed By: #### 8 5499 #### [facility] [address] [facility] [address] Nucleated RBC/100 WBC (Bld) [Ratio] 0 % Normal 0-0 [facility] Comment on above: Performed By: #### 8 5499 #### [facility] [address] [place] [address], [facility] PLAT CNT 103 10*3/uL Low 150-400 [facility] Comment on above: Performed By: #### 8 5499 #### [facility] [address] [place] [id number], [facility] RBC (Bld) [#/Vol] 3.00 10*6/uL Low 3.80-5.00 The [facility] Comment on above: Performed By: #### 8 5499 #### [facility] [address] WBC (Bld) [#/Vol] 15.30 10*3/uL High 4.00-10.60 [facility] Comment on above: Performed By: #### 8 5499 #### [facility] [address] FIBRINOGENon 04-02-2021 FIBRINOGEN 138 mg/dL Low 150-425 [facility] Comment on above: Performed By: #### 8 5499 #### [facility] [address] [facility]. [address] FRESH FROZEN PLASMA 2 UNITSo n 04-02-2021 PRODUCT CODE 1 E2701 Normal The [facility] Comment on above: Order Comment: INR: 2.39 ,PTT: 43.1 at the time of order ;Indication: Performed By: #### 8 5499 #### [facility] [address] [facility]. [address] PRODUCT CODE 2 E2701 Normal The [facility] Comment on above: Order Comment: INR: 2.39 ,PTT: 43.1 at the time of order ;Indication: Performed By: #### 8 5499 #### [facility] [address] [facility]. [address] PRODUCT STATUS 1 RE Normal The [facility] Comment on above: Order Comment: INR: 2.39 ,PTT: 43.1 at the time of order ;Indication: Result Comment: Resu lt changed by IF on 04/04/2021 01:00. The previous value was XX. Performed By: #### 8 5499 #### [facility] [address] PRODUCT STATUS 2 RE Normal The [facility] Comment on above: Order Comment: INR: 2.39 ,PTT: 43.1 at the time of order ;Indication: Result Comment: Resu lt changed by IF on 04/04/2021 01:00. The previous value was XX. Performed By: #### 8 5499 #### [facility] [address] [place] [address], [facility] UNIT ABO 1 A Normal [facility] Comment on above: Order Comment: INR: 2.39 ,PTT: 43.1 at the time of order ;Indication: Performed By: #### 8 5499 #### [facility] [address] [place] [address], [facility] UNIT ABO 2 A Normal [facility] Comment on above: Order Comment: INR: 2.39 ,PTT: 43.1 at the time of order ;Indication: Performed By: #### 8 5499 #### [facility] [address] [place] [address], [facility] UNIT ID 1 [id number] Normal The [facility] Comment on above: Order Comment: INR: 2.39 ,PTT: 43.1 at the time of order ;Indication: Performed By: #### 8 5499 #### [facility] [address] [place] [address], [facility] UNIT ID 2 [id number] Normal [facility] Comment on above: Order Comment: INR: 2.39 ,PTT: 43.1 at the time of order ;Indication: Performed By: #### 8 5499 #### [facility] [address] [place] [address], [facility] UNIT RH 1 Positive Normal [facility] Comment on above: Order Comment: INR: 2.39 ,PTT: 43.1 at the time of order ;Indication: Performed By: #### 8 5499 #### [facility] [address] [place] [address], [facility] UNIT RH 2 Positive Normal [facility] Comment on above: Order Comment: INR: 2.39 ,PTT: 43.1 at the time of order ;Indication: Performed By: #### 8 5499 #### [facility] [address] [place] [id number], [facility] LACTATE BLOODon 04-02-2021 Lactate [Moles/Vol] 1.5 mmol/L Normal 0.5-2.2 [facility] Comment on above: Performed By: #### 3 09 #### [facility] [address] [place] [address], [facility] MAGNESIUM BLOODon 04-02-2021 Magnesium [Mass/Vol] 1.8 mg/dL Low 1.9-2.7 [facility] Comment on above: Order Comment: Check Chest Tube Position, ON ARRIVAL TO CVU Performed By: #### 0 0071, 05443, 67957 ####[facility] [place] [address], [facility] Magnesium [Mass/Vol] 2.6 mg/dL Normal 1.9-2.7 [facility] Comment on above: Performed By: #### 0 0071, 49517 ####[facility] [id number], [facility] PERFUSION BLOOD PANELon 03-20 BASE EXCESS -1.0 mmol/L Normal -2.0-3.0 [facility] Comment on above: Performed By: #### 3 1976 #### [facility] [address] [place] [id number], [facility] Glucose [Mass/Vol] 139 mg/dL High 70-105 [facility] Comment on above: Performed By: #### 3 1976 #### [facility] [address] [place] [address], [facility] Hematocrit (Bld) [Volume fraction] 24 % Low 38-51 [facility] Comment on above: Performed By: #### 3 1976 #### [facility] [address] [place] [address], [facility] Hemoglobin (Bld) [Mass/Vol] 8.2 g/dL Low 12.0-17.0 [facility] Comment on above: Performed By: #### 3 1976 #### [facility] [address] [place] [address], [place] IONIZED CALCIUM 1.35 mmol/L High 1.12-1.32 [facility] Comment on above: Performed By: #### 3 1976 #### [facility] [address] [place] [address], [place] Oxygen (Bld) [Partial pressure] 530.0 mm[Hg] High 80.0-105.0 [facility] Comment on above: Performed By: #### 3 1976 #### [facility] [address] [place] [address], [place] PCO2 40.1 mmHg Normal 35.0-45.0 [facility] Comment on above: Performed By: #### 3 1976 #### [facility] [address] [place] [address], [place] pH (Bld) 7.39 [pH] Normal 7.35-7.45 [facility] Comment on above: Performed By: #### 3 1976 #### [facility] [address] [place] [address], [place] Potassium [Moles/Vol] 4.1 mmol/L Normal 3.5-4.9 [facility] Comment on above: Performed By: #### 3 1976 #### [facility] [address] [place] [address], [place] Sodium [Moles/Vol] 140 mmol/L Normal 138-146 [facility] Comment on above: Performed By: #### 3 1976 #### [facility] [address] [place] [address], [place] BASE EXCESS 2.0 mmol/L Normal -2.0-3.0 [facility] Comment on above: Performed By: #### 3 1976 #### [facility] [address] [place] [address], [facility] Glucose [Mass/Vol] 146 mg/dL High 70-105 [facility] Comment on above: Performed By: #### 3 1976 #### [facility] [address] [place] [address], [facility] Hematocrit (Bld) [Volume fraction] 16 % Low 38-51 [facility] Comment on above: Performed By: #### 3 1976 #### [facility] [address] [place] [address], [facility] Hemoglobin (Bld) [Mass/Vol] 5.4 g/dL Critically low 12.0-17.0 [facility] Comment on above: Performed By: #### 3 1976 #### [facility] [address] [place] [address], [facility] IONIZED CALCIUM 1.15 mmol/L Normal 1.12-1.32 [facility] Comment on above: Performed By: #### 3 1976 #### [facility] [address] [place] [address], [facility] Oxygen (Bld) [Partial pressure] 529.0 mm[Hg] High 80.0-105.0 [facility] Comment on above: Performed By: #### 3 1976 #### [facility] [address] [place] [address], [facility] PCO2 37.9 mmHg Normal 35.0-45.0 [facility] [facility] Comment on above: Performed By: #### 3 1976 #### [facility] [address] [place] [address], [facility] pH (Bld) 7.44 [pH] Normal 7.35-7.45 [facility] Comment on above: Performed By: #### 3 1976 #### [facility] [address] [place] [address], [place] Potassium [Moles/Vol] 3.9 mmol/L Normal 3.5-4.9 [facility] Comment on above: Performed By: #### 3 1976 #### [facility] [address] [place] [address], [place] Sodium [Moles/Vol] 141 mmol/L Normal 138-146 [facility] Comment on above: Performed By: #### 3 1976 #### [facility] [address] [place] [address], [place] BASE EXCESS 2.0 mmol/L Normal -2.0-3.0 [facility] Comment on above: Performed By: #### 8 [id number] #### [facility] [address] [place] [address], [place] Glucose [Mass/Vol] 168 mg/dL High 70-105 [facility] Comment on above: Performed By: #### 8 [id number] #### [facility] [address] [place] [address], [place] Hematocrit (Bld) [Volume fraction] 17 % Low 38-51 [facility] Comment on above: Performed By: #### 8 [id number] #### [facility] [address] [place] [address], [place] Hemoglobin (Bld) [Mass/Vol] 5.8 g/dL Critically low 12.0-17.0 [facility] Comment on above: Performed By: #### 8 5499 #### [facility] [address] [place] [address], [place] IONIZED CALCIUM 1.95 mmol/L Critically high 1.12-1.32 [facility] Comment on above: Performed By: #### 8 [id number] #### [facility] [address] [place] [address], [place] Oxygen (Bld) [Partial pressure] 489.0 mm[Hg] High 80.0-105.0 [facility] Comment on above: Performed By: #### 8 [id number] #### [facility] [address] [place] [address], [facility] PCO2 41.5 mmHg Normal 35.0-45.0 [facility] Comment on above: Performed By: #### 8 [id number] #### [facility] [address] [place] [address], [facility] pH (Bld) 7.42 [pH] Normal 7.35-7.45 [facility] Comment on above: Performed By: #### 8 [id number] #### [facility] [address] [place] [address], [place] Potassium [Moles/Vol] 4.7 mmol/L Normal 3.5-4.9 [facility] Comment on above: Performed By: #### 8 5499 #### [facility] [address] [place] [address], [place] Sodium [Moles/Vol] 136 mmol/L Low 138-146 [facility] Comment on above: Performed By: #### 8 5499 #### [facility] [address] [place] [address], [place] BASE EXCESS 0.0 mmol/L Normal -2.0-3.0 [facility] Comment on above: Performed By: #### 8 5499 #### [facility] [address] [place] [address], [place] Glucose [Mass/Vol] 126 mg/dL High 70-105 [facility] Comment on above: Performed By: #### 8 5499 #### [facility] [address] [place] [address], [place] Hematocrit (Bld) [Volume fraction] 16 % Low 38-51 [facility] Comment on above: Performed By: #### 8 5499 #### [facility] [address] [place] [address], [facility] Hemoglobin (Bld) [Mass/Vol] 5.4 g/dL Critically low 12.0-17.0 [facility] Comment on above: Performed By: #### 8 5499 #### [facility] [address] [place] [address], [facility] IONIZED CALCIUM 0.94 mmol/L Low 1.12-1.32 [facility] Comment on above: Performed By: #### 8 5499 #### [facility] [address] [place] [address], [facility] Oxygen (Bld) [Partial pressure] 37.0 mm[Hg] Normal [facility] Comment on above: Performed By: #### 8 [id number] #### [facility] [address] [place] [address], [facility] PCO2 36.9 mmHg Low 41.0-51.0 [facility] Comment on above: Performed By: #### 8 [id number] #### [facility] [address] [place] [address], [facility] pH (Bld) 7.43 [pH] High 7.31-7.41 [facility] Comment on above: Performed By: #### 8 [id number] #### [facility] [address] [place] [address], [facility] Potassium [Moles/Vol] 4.4 mmol/L Normal 3.5-4.9 [facility] Comment on above: Performed By: #### 8 [id number] #### [facility] [address] [place] [address], [facility] Sodium [Moles/Vol] 140 mmol/L Normal 138-146 [facility] Comment on above: Performed By: #### 8 [id number] #### [facility] [address] [place] [address], [facility] BASE EXCESS 3.0 mmol/L Normal -2.0-3.0 [facility] Comment on above: Performed By: #### 8 5499 #### [facility] [address] [place] [address], [facility] Glucose [Mass/Vol] 117 mg/dL High 70-105 [facility] Comment on above: Performed By: #### 8 5499 #### [facility] [address] [place] [address], [facility] Hematocrit (Bld) [Volume fraction] 18 % Low 38-51 [facility] Comment on above: Performed By: #### 8 5499 #### [facility] [address] [place] [address], [facility] Hemoglobin (Bld) [Mass/Vol] 6.1 g/dL Low 12.0-17.0 [facility] Comment on above: Performed By: #### 8 5499 #### [facility] [address] [place] [address], [facility] IONIZED CALCIUM 0.92 mmol/L Low 1.12-1.32 [facility] Comment on above: Performed By: #### 8 5499 #### [facility] [address] [place] [address], [facility] Oxygen (Bld) [Partial pressure] 445.0 mm[Hg] High 80.0-105.0 [facility] Comment on above: Performed By: #### 8 [id number] #### [facility] [address] [place] [address], [facility] PCO2 36.6 mmHg Normal 35.0-45.0 [facility] Comment on above: Performed By: #### 8 [id number] #### [facility] [address] [place] [address], [facility] pH (Bld) 7.48 [pH] High 7.35-7.45 [facility] Comment on above: Performed By: #### 8 [id number] #### [facility] [address] [place] [address], [facility] Potassium [Moles/Vol] 4.4 mmol/L Normal 3.5-4.9 [facility] Comment on above: Performed By: #### 8 [id number] #### [facility] [address] [place] [address], [place] Sodium [Moles/Vol] 138 mmol/L Normal 138-146 [facility] Comment on above: Performed By: #### 8 5498 #### [facility] [address] [place] [address], [facility] BASE EXCESS 4.0 mmol/L High -2.0-3.0 [facility] Comment on above: Performed By: #### 3 1976 #### [facility] [address] [place] [id number], [facility] Glucose [Mass/Vol] 118 mg/dL High 70-105 [facility] Comment on above: Performed By: #### 3 1976 #### [facility] [address] [place] [address], [facility] Hematocrit (Bld) [Volume fraction] 20 % Low 38-51 [facility] Comment on above: Performed By: #### 3 1976 #### [facility] [address] [place] [id number], [facility] Hemoglobin (Bld) [Mass/Vol] 6.8 g/dL Low 12.0-17.0 [facility] Comment on above: Performed By: #### 3 1976 #### [facility] [address] [place] [id number], [facility] IONIZED CALCIUM 0.96 mmol/L Low 1.12-1.32 [facility] Comment on above: Performed By: #### 3 1976 #### [facility] [address] [place] [address], [place] Oxygen (Bld) [Partial pressure] 466.0 mm[Hg] High 80.0-105.0 [facility] Comment on above: Performed By: #### 3 1976 #### [facility] [address] [place] [address], [place] PCO2 35.3 mmHg Normal 35.0-45.0 [facility] Comment on above: Performed By: #### 3 1976 #### [facility] [address] [place] [address], [place] pH (Bld) 7.51 [pH] High 7.35-7.45 [facility] Comment on above: Performed By: #### 3 1976 #### [facility] [address] [place] [address], [place] Potassium [Moles/Vol] 4.3 mmol/L Normal 3.5-4.9 [facility] Comment on above: Performed By: #### 3 1976 #### [facility] [address] [place] [address], [place] Sodium [Moles/Vol] 138 mmol/L Normal 138-146 [facility] Comment on above: Performed By: #### 3 1976 #### [facility] [address] [place] [address], [place] BASE EXCESS 1.0 mmol/L Normal -2.0-3.0 [facility] Comment on above: Performed By: #### 3 1976 #### [facility] [address] [place] [address], [place] Glucose [Mass/Vol] 92 mg/dL Normal 70-105 [facility] Comment on above: Performed By: #### 3 1976 #### [facility] [address] [place] [address], [place] Hematocrit (Bld) [Volume fraction] 18 % Low 38-51 [facility] Comment on above: Performed By: #### 3 1976 #### [facility] [address] [place] [address], [facility] Hemoglobin (Bld) [Mass/Vol] 6.1 g/dL Low 12.0-17.0 [facility] Comment on above: Performed By: #### 3 1976 #### [facility] [address] [place] [address], [facility] IONIZED CALCIUM 0.90 mmol/L Low 1.12-1.32 [facility] Comment on above: Performed By: #### 3 1976 #### [facility] [address] [place] [address], [facility] Oxygen (Bld) [Partial pressure] 45.0 mm[Hg] Normal [facility] Comment on above: Performed By: #### 3 1976 #### [facility] [address] [place] [address], [facility] PCO2 32.1 mmHg Low 41.0-51.0 [facility] Comment on above: Performed By: #### 3 1976 #### [facility] [address] [place] [address], [facility] pH (Bld) 7.49 [pH] High 7.31-7.41 [facility] Comment on above: Performed By: #### 3 1976 #### [facility] [address] [place] [address], [facility] Potassium [Moles/Vol] 3.7 mmol/L Normal 3.5-4.9 [facility] Comment on above: Performed By: #### 3 1976 #### [facility] [address] [place] [address], [facility] Sodium [Moles/Vol] 138 mmol/L Normal 138-146 [facility] Comment on above: Performed By: #### 3 1976 #### [facility] [address] [place] [address], [facility] BASE EXCESS 7.0 mmol/L High -2.0-3.0 [facility] Comment on above: Performed By: #### 3 1976 #### [facility] [address] [place] [address], [place] Glucose [Mass/Vol] 94 mg/dL Normal 70-105 [facility] Comment on above: Performed By: #### 3 1976 #### [facility] [address] [place] [address], [facility] Hematocrit (Bld) [Volume fraction] 17 % Low 38-51 [facility] Comment on above: Performed By: #### 3 1976 #### [facility] [address] [place] [address], [facility] Hemoglobin (Bld) [Mass/Vol] 5.8 g/dL Critically low 12.0-17.0 [facility] Comment on above: Performed By: #### 3 1976 #### [facility] [address] [place] [address], [facility] IONIZED CALCIUM 0.85 mmol/L Low 1.12-1.32 [facility] Comment on above: Performed By: #### 3 1976 #### [facility] [address] [place] [address], [facility] Oxygen (Bld) [Partial pressure] 553.0 mm[Hg] High 80.0-105.0 [facility] Comment on above: Performed By: #### 3 1976 #### [facility] [address] [place] [address], [place] PCO2 32.8 mmHg Low 35.0-45.0 [facility] Comment on above: Performed By: #### 3 1976 #### [facility] [address] [place] [address], [place] pH (Bld) 7.57 [pH] High 7.35-7.45 [facility] Comment on above: Performed By: #### 3 1976 #### [facility] [address] [place] [address], [facility] Potassium [Moles/Vol] 3.7 mmol/L Normal 3.5-4.9 [facility] Comment on above: Performed By: #### 3 1976 #### [facility] [address] [place] [address], [facility] Sodium [Moles/Vol] 137 mmol/L Low 138-146 [facility] Comment on above: Performed By: #### 3 1976 #### [facility] [address] [place] [address], [facility] BASE EXCESS 0.0 mmol/L Normal -2.0-3.0 [facility] Comment on above: Performed By: #### 3 1976 #### [facility] [address] [place] [id number], [facility] Glucose [Mass/Vol] 109 mg/dL High 70-105 [facility] Comment on above: Performed By: #### 3 1976 #### [facility] [address] [place] [address], [facility] Hematocrit (Bld) [Volume fraction] 27 % Low 38-51 [facility] Comment on above: Performed By: #### 3 1976 #### [facility] [address] [place] [address], [facility] Hemoglobin (Bld) [Mass/Vol] 9.2 g/dL Low 12.0-17.0 [facility] Comment on above: Performed By: #### 3 1976 #### [facility] [address] [place] [id number], [facility] IONIZED CALCIUM 1.17 mmol/L Normal 1.12-1.32 [facility] Comment on above: Performed By: #### 3 1976 #### [facility] [address] [place] [address], [place] Oxygen (Bld) [Partial pressure] 336.0 mm[Hg] High 80.0-105.0 [facility] Comment on above: Performed By: #### 3 1976 #### [facility] [address] [place] [address], [place] PCO2 41.6 mmHg Normal 35.0-45.0 [facility] Comment on above: Performed By: #### 3 1976 #### [facility] [address] [place] [address], [place] pH (Bld) 7.39 [pH] Normal 7.35-7.45 [facility] Comment on above: Performed By: #### 3 1976 #### [facility] [address] [place] [address], [place] Potassium [Moles/Vol] 3.6 mmol/L Normal 3.5-4.9 [facility] Comment on above: Performed By: #### 3 1976 #### [facility] [address] [place] [address], [place] Sodium [Moles/Vol] 139 mmol/L Normal 138-146 [facility] Comment on above: Performed By: #### 3 1976 #### [facility] [address] [place] [address], [place] BASE EXCESS 2.0 mmol/L Normal -2.0-3.0 [facility] Comment on above: Performed By: #### 8 5499 #### [facility] [address] [place] [address], [place] Glucose [Mass/Vol] 93 mg/dL Normal 70-105 [facility] Comment on above: Performed By: #### 8 5499 #### [facility] [address] [place] [address], [place] Hematocrit (Bld) [Volume fraction] 27 % Low 38-51 [facility] Comment on above: Performed By: #### 8 5499 #### [facility] [address] [place] [address], [facility] Hemoglobin (Bld) [Mass/Vol] 9.2 g/dL Low 12.0-17.0 [facility] Comment on above: Performed By: #### 8 5499 #### [facility] [address] [place] [address], [facility] IONIZED CALCIUM 1.15 mmol/L Normal 1.12-1.32 [facility] Comment on above: Performed By: #### 8 5499 #### [facility] [address] [facility] [place] [address], [facility] Oxygen (Bld) [Partial pressure] 545.0 mm[Hg] High 80.0-105.0 [facility] Comment on above: Performed By: #### 8 5499 #### [facility] [address] [facility] [place] [address], [facility] PCO2 37.6 mmHg Normal 35.0-45.0 [facility] Comment on above: Performed By: #### 8 5499 #### [facility] [address] [place] [address], [facility] pH (Bld) 7.45 [pH] Normal 7.35-7.45 [facility] Comment on above: Performed By: #### 8 5499 #### [facility] [address] [facility] [place] [address], [facility] Potassium [Moles/Vol] 3.3 mmol/L Low 3.5-4.9 [facility] Comment on above: Performed By: #### 8 5499 #### [facility] [address] [place] [address], [place] Sodium [Moles/Vol] 140 mmol/L Normal 138-146 [facility] Comment on above: Performed By: #### 8 5499 #### [facility] [address] [place] [address], [place] PHOSPHORUS BLOODon Phosphate [Mass/Vol] 3.4 mg/dL Normal 2.5-5.0 [facility] Comment on above: Order Comment: Check Chest Tube Position, ON ARRIVAL TO CVU Performed By: #### 0 0071, 525[address], [address] ####[facility] [place] [address], [facility] POC GLUCOSE LABon 04-02-2021 Glucose [Mass/Vol] 154 mg/dL High 70-100 [facility] Comment on above: Performed By: #### 8 5499 #### [facility] [address] [place] [address], [facility] Glucose [Mass/Vol] 101 mg/dL High 70-100 [facility] Comment on above: Performed By: #### 3 1595 #### [facility] [address] [place] [address], [facility] POC SARS COV2 ANTIGEN NEGATI VEon 04-02-2021 POC SARS COV2 ANTIGEN NEG Negative Normal NEGATIVE [facility] Comment on above: Result Comment: Nega tive [...] signs and symptoms consistent with COVID-19. The [employer] COVID-19 Ag Card is a lateral flow [...] Accreditation. Performed By: #### 3 1977 #### [address] PORTABLE CHEST 1 VIEWon 03-20 PORTABLE CHEST 1 VIEW [facility] Department of Radiology [address] [place] [id number] Patient Name: AMBAR BREWSTER : 1950 Sex: F Age: Race: White Pt. Location: [place] [address] Patient Status: I Ordered Date: 04/02/2021 1:30:00 [...] stomach. Thoracostomy tubes and mediastinal drainage tube. Dallas-Ayan catheter with the tip in the pulmonary outflow. Congested lung valerio. IMPRESSION: As above. Electronically signed: Kirk Campa. Transcribed by: [email or web address], User Resident: Electronically Signed by: KIRK CAMPA @ 04/02/2021 02:43 PM Normal [facility] Comment on above: Order Comment: Check Chest Tube Position, ON ARRIVAL TO CVU PROTHROMBIN TIMEon INR Coag (PPP) [Relative time] 1.42 {INR} High 0.91-1.16 [facility] Comment on above: Order Comment: No: [...] 1995;108:231S-246S. Performed By: #### 8 5499 #### [facility] [address] [facility]. [address] PT Coag (PPP) [Time] 17.4 s High 12.3-14.8 [facility] Comment on above: Order Comment: No: D o not add to previous draw Result Comment: ALL RESULTS MUST BE INTERPRETED WITH RESPECT TO BLOOD DRAWING ARTIFACT OR DILUTION ERROR OF ANTICOAGULANT AT THE TIME OF SAMPLING. Performed By: #### 8 5499 #### [facility] [address] [place] [address], [facility] INR Coag (PPP) [Relative time] 1.92 {INR} High 0.91-1.16 [facility] Comment on above: Order Comment: No: D o not add to previous draw Result Comment: [facility] P RECOMMENDED INR FOR WARFARIN THERAPY -------- [...] 1995;108:231S-246S. Performed By: #### 8 5499 #### [facility] [address] [facility] [place] [address], [facility] PT Coag (PPP) [Time] 22.0 s High 12.3-14.8 [facility] Comment on above: Order Comment: No: D o not add to previous draw Result Comment: ALL RESULTS MUST BE INTERPRETED WITH RESPECT TO BLOOD DRAWING ARTIFACT OR DILUTION ERROR OF ANTICOAGULANT AT THE TIME OF SAMPLING. Performed By: #### 8 5499 #### [facility] [address] [place] [id number], [place] INR Coag (PPP) [Relative time] 2.39 {INR} High 0.91-1.16 [facility] Comment on above: Result Comment: ACC P [...] 1995;108:231S-246S. Performed By: #### 8 5499 #### [facility] [address] PT Coag (PPP) [Time] 26.2 s High 12.3-14.8 [facility] Comment on above: Result Comment: ALL RESULTS MUST BE INTERPRETED WITH RESPECT TO BLOOD DRAWING ARTIFACT OR DILUTION ERROR OF ANTICOAGULANT AT THE TIME OF SAMPLING. Performed By: #### 8 [id number] #### [facility] [address] RBC'S 2 UNITSon 04-02-2021 CROSSMATCH INTERP 1 COMP Normal [facility] Comment on above: Performed By: #### 3 0729 #### [facility] [address] [place] [address], [facility] CROSSMATCH INTERP 2 COMP Normal [facility] Comment on above: Performed By: #### 3 0723 #### [facility] [address] PRODUCT CODE 1 E0336 Normal [facility] Comment on above: Performed By: #### 3 8330 #### [facility] [address] [place] [address], [facility] PRODUCT CODE 2 E0336 Normal [facility] Comment on above: Performed By: #### 3 0739 #### [facility] [address] [place] [address], [place] PRODUCT STATUS 1 RE Normal [facility] Comment on above: Result Comment: Resu lt changed by IF on 04/05/2021 07:21. The previous value was XM. Performed By: #### 3 0739 #### [facility] [address] [place] [address], [facility] PRODUCT STATUS 2 RE Normal [facility] Comment on above: Result Comment: Resu lt changed by IF on 04/05/2021 07:21. The previous value was XM. Performed By: #### 3 0739 #### [facility] [address] [place] [address], [facility] UNIT ABO 1 A Normal [facility] Comment on above: Performed By: #### 3 0739 #### [facility] [address] [place] [address], [place] UNIT ABO 2 A Normal [facility] Comment on above: Performed By: #### 3 0739 #### [facility] [address] [place] [address], [facility] UNIT ID 1 [id number] Normal [facility] Comment on above: Performed By: #### 3 0739 #### [facility] [address] [place] [address], [place] UNIT ID 2 [id number] Normal [facility] Comment on above: Performed By: #### 3 0739 #### [facility] [address] [place] [address], [place] UNIT RH 1 Negative Normal [facility] Comment on above: Performed By: #### 3 0739 #### [facility] [address] [place] [address], [place] UNIT RH 2 Negative Normal [facility] Comment on above: Performed By: #### 3 0739 #### [facility] [address] [place] [address], [place] CROSSMATCH INTERP 1 COMP Normal [facility] Comment on above: Performed By: #### 3 0965 #### [facility] [address] [place] [address], [place] CROSSMATCH INTERP 2 COMP Normal [facility] Comment on above: Performed By: #### 3 0965 #### [facility] [address] [place] [address], [place] PRODUCT CODE 1 E0336 Normal [facility] Comment on above: Performed By: #### 3 0965 #### [facility] [address] [place] [address], [place] PRODUCT CODE 2 E0336 Normal The [facility] Comment on above: Performed By: #### 3 0965 #### [facility] [address] [place] [address], [place] PRODUCT STATUS 1 PT Normal The [facility] Comment on above: Result Comment: Resu lt changed by IF on 04/02/2021 13:04. The previous value was XM. Result changed by IF on 04/03/2021 00:30. The previous value was IS. Performed By: #### 3 0965 #### [facility] [address] [place] [address], [place] PRODUCT STATUS 2 PT Normal The [facility] Comment on above: Result Comment: Resu lt changed by IF on 04/02/2021 13:04. The previous value was XM. Result changed by IF on 04/03/2021 00:30. The previous value was IS. Performed By: #### 3 0965 #### [facility] [address] [place] [address], [place] UNIT ABO 1 A Normal The [facility] Comment on above: Performed By: #### 3 65 #### [facility] [address] [place] [address], [place] UNIT ABO 2 A Normal The [facility] Comment on above: Performed By: #### 3 0965 #### [facility] [address] [place] [address], [facility] UNIT ID 1 [id number] Normal The [facility] Comment on above: Performed By: #### 3 0965 #### [facility] [address] [place] [address], [facility] UNIT ID 2 [id number] Normal The [facility] Comment on above: Performed By: #### 3 0965 #### [facility] [address] [place] [address], [place] UNIT RH 1 Negative Normal The [facility] Comment on above: Performed By: #### 3 0965 #### [facility] [address] [place] [address], [place] UNIT RH 2 Negative Normal The [facility] Comment on above: Performed By: #### 3 0965 #### [facility] [address] [place] [address], [place] RBC'S 2 UNITSon 04-01-2021 CROSSMATCH INTERP 1 COMP Normal The [facility] Comment on above: Performed By: #### 3 0965 #### [facility] [address] [place] [address], [place] CROSSMATCH INTERP 2 COMP Normal The [facility] Comment on above: Performed By: #### 3 0965 #### [facility] [address] [place] [address], [facility] PRODUCT CODE 1 E0336 Normal The [facility] Comment on above: Performed By: #### 3 0965 #### [facility] [address] [place] [address], [place] PRODUCT CODE 2 E0336 Normal The [facility] Comment on above: Performed By: #### 3 0965 #### [facility] [address] [place] [address], [facility] PRODUCT STATUS 1 PT Normal The [facility] Comment on above: Result Comment: Resu lt changed by IF on 04/02/2021 09:57. The previous value was XM. Result changed by IF on 04/03/2021 00:30. The previous value was IS. Performed By: #### 3 65 #### [facility] [address] [place] [address], [facility] PRODUCT STATUS 2 PT Normal The [facility] Comment on above: Result Comment: Resu lt changed by IF on 04/02/2021 09:57. The previous value was XM. Result changed by IF on 04/03/2021 00:30. The previous value was IS. Performed By: #### 3 65 #### [facility] [address] [place] [address], [facility] UNIT ABO 1 A Normal [facility] Comment on above: Performed By: #### 3 0965 #### [facility] [address] [place] [address], [place] UNIT ABO 2 A Normal [facility] Comment on above: Performed By: #### 3 0965 #### [facility] [address] [place] [address], [place] UNIT ID 1 [id number] Normal The [facility] Comment on above: Performed By: #### 3 0965 #### [facility] [address] UNIT ID 2 [id number] Normal The [facility] Comment on above: Performed By: #### 3 0965 #### [facility] [address] [place] [address], [facility] UNIT RH 1 Negative Normal [facility] Comment on above: Performed By: #### 3 0965 #### [facility] [address] [facility] [place] [address], [facility] UNIT RH 2 Negative Normal The [facility] Comment on above: Performed By: #### 3 0965 #### [facility] [address] [facility] [address] *MRSA/MSSA DNA NASALon 03-25 *MRSA/MSSA DNA NASAL Clinical Report: (D ) Specimen: NASAL SWAB Collected: 03/25/2021 10:21 Status: Final Last Updated: 03/27/2021 08:02 MSSA DNA (Final) Negative MRSA DNA (Final) Methicillin Resistant Staphylococcus aureus DNA Detected Normal [facility] Comment on above: Performed By: #### 3 1595 #### [facility] [address] [facility]. [address] ANTI C3 DATon 03-25-2021 ANTI C3 ZEENAT Negative Normal The [facility] Comment on above: Performed By: #### 3 0965 #### [facility] [address] [facility] [place] [address], [facility] ANTI IGG DATon 03-25-2021 ANTI IGG ZEENAT Negative Normal The [facility] Comment on above: Performed By: #### 3 0965 #### [facility] [address] [facility] ANTIBODY IDENTIFICATIONon ANTIBODY ID NCSA Normal [facility] Comment on above: Performed By: #### 3 0739 #### [facility] [address] APTTon 03-25-2021 aPTT Coag (Bld) [Time] 30.2 s Normal 25.0-35.0 The [facility] Comment on above: Result Comment: ALL RESULTS [...] PURPOSE. Performed By: #### 8 5499 #### [facility] [address] CBC W/DIFFon 03-25-2021 ABS IMM GRANS 0.0 10*3/uL Normal 0.0-0.2 The [facility] Comment on above: Performed By: #### 5 0103 #### [facility] [address] ABS NEUTROPHILS 4.7 10*3/uL Normal 1.6-7.6 The [facility] Comment on above: Performed By: #### 5 0103 #### [facility] [address] Basophils (Bld) [#/Vol] 0.1 10*3/uL Normal 0.0-0.2 The [facility] Comment on above: Performed By: #### 5 0103 #### [facility] [address] [place] [address], [facility] Basophils/100 WBC (Bld) 0.7 % Normal 0.0-1.0 The [facility] Comment on above: Performed By: #### 5 0103 #### [facility] [address] [place] [address], [facility] Eosinophils (Bld) [#/Vol] 0.1 10*3/uL Normal 0.0-0.5 The [facility] Comment on above: Performed By: #### 5 0103 #### [facility] [address] [place] [address], [facility] Eosinophils/100 WBC (Bld) 1.6 % Normal 0.0-6.0 The [facility] Comment on above: Performed By: #### 5 3 #### [facility] [address] [place] [address], [facility] Erythrocyte distribution width (RBC) [Ratio] 12.8 % Normal 11.5-15.0 The [facility] Comment on above: Performed By: #### 3 #### [facility] [address] [facility] [place] [address], [facility] Hematocrit (Bld) [Volume fraction] 35.0 % Low 36.0-45.0 The [facility] Comment on above: Performed By: #### 102 #### [facility] [address] [facility] [place] [address], [facility] Hemoglobin (Bld) [Mass/Vol] 11.6 g/dL Low 12.0-15.0 The [facility] Comment on above: Performed By: #### 3 #### [facility] [address] [facility] [place] [address], [facility] IMMATURE GRANS 0.3 % Normal 0.0-1.0 The [facility] Comment on above: Performed By: #### 5 3 #### [facility] [address] [facility] [place] [address], [facility] Lymphocytes (Bld) [#/Vol] 1.3 10*3/uL Normal 1.2-4.0 The [facility] Comment on above: Performed By: #### 3 #### [facility] [address] [place] [address], [facility] Lymphocytes/100 WBC (Bld) 19.2 % Low 20.0-45.0 The [facility] Comment on above: Performed By: #### 5 3 #### [facility] [address] [facility]. [address] MCH (RBC) [Entitic mass] 31.4 pg Normal 27.0-33.0 [facility] Comment on above: Performed By: #### 5 3 #### [facility] [address] [facility] [address] MCHC (RBC) [Mass/Vol] 33.1 g/dL Normal 32.0-35.0 [facility] Comment on above: Performed By: #### 5 3 #### [facility] [address] MCV (RBC) [Entitic vol] 94.9 fL Normal 82.0-98.0 [facility] Comment on above: Performed By: #### 102 #### [facility] [address] [facility] [place] [address], [facility] Monocytes (Bld) [#/Vol] 0.6 10*3/uL Normal 0.1-1.0 [facility] Comment on above: Performed By: #### 5 3 #### [facility] [address] MONOS 8.4 % Normal 5.0-12.0 [facility] Comment on above: Performed By: #### 5 3 #### [facility] [address] [facility]. [address] Neutrophils/100 WBC (Bld) 69.8 % Normal 40.0-72.0 [facility] Comment on above: Performed By: #### 5 3 #### [facility] [address] Nucleated RBC/100 WBC (Bld) [Ratio] 0 % Normal 0-0 [facility] Comment on above: Performed By: #### 5 3 #### [facility] [address] PLAT CNT 325 10*3/uL Normal 150-400 The [facility] Comment on above: Performed By: #### 5 0103 #### [place] [address], [facility] RBC (Bld) [#/Vol] 3.69 10*6/uL Low 3.80-5.00 The [facility] Comment on above: Performed By: #### 5 0103 #### [facility] [address] [place] [address], [facility] WBC (Bld) [#/Vol] 6.67 10*3/uL Normal 4.00-10.60 The [facility] Comment on above: Performed By: #### 5 0103 #### [address] CHEST AND LATERALon 03-25-20 21 CHEST AND LATERAL [facility] Department of Radiology [address] [place], [place] [id number] Patient Name: AMBAR BREWSTER : 1950 Sex: F Age: Race: White Pt. Location: Patient Status: O Ordered Date: 03/25/2021 10:40:00 AM Completed Date: 03/25/2021 10:40 AM Requesting Provider: FELISA HYATT Attending Provider: FELISA HYATT Report Copy To: DONTAE URIBE Signs & Symptoms: I25.10 Athscl heart disease of [place] coronary artery w/o ang pctrs I10 History: Comments: evaluate Exam: CHEST AND LATERAL CHEST AND LATERAL 03/25/2021 10:40 AM CLINICAL INDICATIONS: I25.10 Athscl heart disease of [place] coronary artery w/o ang pctrs I10 TECHNOLOGIST [...] report. Electronically signed: Annie Germain. Transcribed by: [email or web address], User Resident: MU MOSES Electronically Signed by: ANNIE GERMAIN @ 03/25/2021 11:41 AM I personally read this/these film(s) with this resident Normal The [facility] Comment on above: Order Comment: evalu ate COMP METABOLIC PANELon 03-25 Albumin [Mass/Vol] 4.4 g/dL Normal 3.5-5.7 [facility] Comment on above: Performed By: #### 0 0121 ####[facility] [facility] [place] [address], [facility] ALKALINE PHOSPH 52 IU/L Normal 34-104 The [facility] Comment on above: Performed By: #### 0 0121 ####[facility] [facility] [place] [address], [facility] ALT [Catalytic activity/Vol] 12 U/L Normal 7-52 The [facility] Comment on above: Performed By: #### 0 0121 ####[facility] [place] [address], [facility] AST [Catalytic activity/Vol] 13 U/L Normal 13-39 [facility] Comment on above: Performed By: #### 0 0121 ####[facility] [facility] [place] [address], [place] Bilirubin [Mass/Vol] 0.3 mg/dL Normal 0.3-1.0 [facility] Comment on above: Performed By: #### 0 0121 ####[facility] [facility] [address], [facility] Calcium [Mass/Vol] 9.7 mg/dL Normal 8.6-10.3 [facility] Comment on above: Performed By: #### 0 0121 ####[facility] [facility] [address], [facility] Chloride [Moles/Vol] 104 mmol/L Normal 98-107 [facility] Comment on above: Performed By: #### 0 0121 ####[facility] [facility] [address], [facility] CO2 [Moles/Vol] 30 mmol/L Normal 21-31 [facility] Comment on above: Performed By: #### 0 0121 ####[facility] [facility] [address], [place] Creatinine [Mass/Vol] 0.76 mg/dL Normal 0.60-1.20 [facility] Comment on above: Performed By: #### 0 0121 ####[facility] [facility] [address], [facility] GFR/1.73 sq M.predicted among blacks MDRD (S/P/Bld) [Vol rate/Area] mL/min/{1.73_m2} Normal >60 [facility] Comment on above: Performed By: #### 0 0121 ####[facility] [place] [address], [place] GFR/1.73 sq M.predicted among non-blacks MDRD (S/P/Bld) [Vol rate/Area] mL/min/{1.73_m2} Normal >60 [facility] Comment on above: Performed By: #### 0 0121 ####[facility] [place] [address], [place] Glucose [Mass/Vol] 112 mg/dL High 70-100 The [facility] Comment on above: Performed By: #### 0 0121 ####[facility] [place] [address], [place] Potassium [Moles/Vol] 5.1 mmol/L Normal 3.5-5.1 [facility] Comment on above: Performed By: #### 0 0121 ####[facility] [place] [address], [place] Protein [Mass/Vol] 7.5 g/dL Normal 6.0-8.3 [facility] Comment on above: Performed By: #### 0 0121 ####[facility] [place] [address], [place] Sodium [Moles/Vol] 140 mmol/L Normal 136-145 [facility] Comment on above: Performed By: #### 0 0121 ####[facility] [place] [address], [place] Urea nitrogen [Mass/Vol] 10 mg/dL Normal 7-25 [facility] Comment on above: Performed By: #### 0 0121 ####[facility] [place] [address], [place] HEMOGLOBIN A1Con 03-25-2021 Glucose [Moles/Vol] 117 mmol/L Normal The [facility] Comment on above: Performed By: #### 3 1791 ####[facility] HbA1c (Bld) [Mass fraction] 5.7 % Normal 4.0-6.0 [facility] Comment on above: Performed By: #### 3 1791 ####[facility] PROTHROMBIN TIMEon 1 INR Coag (PPP) [Relative time] 1.05 {INR} Normal 0.91-1.16 [facility] Comment on above: Result Comment: ACCC P [...] 1995;108:[id number]. Performed By: #### 8 5499 #### [facility] [address] PT Coag (PPP) [Time] 13.7 s Normal 12.3-14.8 [facility] Comment on above: Result Comment: ALL RESULTS MUST BE INTERPRETED WITH RESPECT TO BLOOD DRAWING ARTIFACT OR DILUTION ERROR OF ANTICOAGULANT AT THE TIME OF SAMPLING. Performed By: #### 8 5499 #### [facility] [address] [place] [address], [place] TYPE AND CROSSMATCHon 2020 ABO INTERPRETATION A Normal The [facility] Comment on above: Performed By: #### 3 0965 #### [facility] [address] [place] [address], [place] RH INTERPRETATION Negative Normal The [facility] Comment on above: Performed By: #### 3 0965 #### [facility] [address] [place] [address], [place] URINALYSIS REFLEXon 03-25-20 21 Appearance (U) SL CLOUDY Abnormal CLEAR The [facility] Comment on above: Performed By: #### 3 0965 #### [facility] [address] [place] [address], [place] Bilirubin Ql (U) Negative Normal NEGATIVE The [facility] Comment on above: Performed By: #### 3 0965 #### [facility] [address] [place] [address], [place] Color (U) YELLOW Normal YELLOW [facility] Comment on above: Performed By: #### 3 0965 #### [facility] [address] [place] [address], [place] Glucose Ql (U) Negative Normal NEGATIVE [facility] Comment on above: Performed By: #### 3 0965 #### [facility] [address] [place] [address], [place] Hemoglobin Ql (U) Negative Normal NEGATIVE [facility] Comment on above: Performed By: #### 3 0965 #### [facility] [address] [place] [address], [place] KETONE Negative Normal NEGATIVE [facility] Comment on above: Performed By: #### 3 0965 #### [facility] [address] [place] [address], [facility] LEUK KEEGAN Negative Normal NEGATIVE [facility] Comment on above: Performed By: #### 3 0965 #### [facility] [address] [facility] [place] [address], [facility] MICRO NOT DONE Normal [facility] Comment on above: Result Comment: Micr oscopics not performed on urines with negative chemical reactions unless requested in original order Performed By: #### 3 0965 #### [facility] [address] [place] [address], [facility] Nitrite Ql (U) Negative Normal NEGATIVE [facility] Comment on above: Performed By: #### 3 0965 #### [facility] [address] [place] [address], [facility] pH (U) 7.0 [pH] Normal 5.0-8.0 [facility] Comment on above: Performed By: #### 3 0965 #### [facility] [address] [place] [address], [facility] Protein Ql (U) Negative Normal NEGATIVE The [facility] Comment on above: Performed By: #### 3 0965 #### [facility] [address] [place] [address], [facility] SPEC GRAV 1.014 Low 1.015-1.020 The [facility] Comment on above: Performed By: #### 3 0965 #### [facility] [address] [place], [place] [address] [place] [address] Cardiovascular Lab Reporton 03-18-2021 Cardiovascular Lab Report [facility] MR #: [id number] Department of Physician: Taco Regalado M.D. Division of Service Date: 03/17/2021 Cardiology Birthdate: 1950 Adult Cardiovascular Room #: Services [facility] [address] [address] Cardiovascular Laboratory Report FINAL IMPRESSIONS: 1. 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 2. Normal global left ventricular systolic function. 3. Normal right-sided heart pressures and wedge pressure. 4. Normal cardiac output/cardiac index. Pressured and artery aneurysms. 5. Elrrkycy-bz-rexgcv systemic hypertension. RECOMMENDATIONS: 1. Consult Cardiothoracic Surgery [...] femoral vein and artery was obtained. A 6-Belarusian 11 cm sheath was placed in each. Angiography via an inner cannula of the micropuncture kit was performed prior to upsizing in the artery. The Paiz catheter was used for right heart catheterization measuring pressures in the right atrium, right ventricle, pulmonary artery, and pulmonary capillary wedge positions. Oxygen saturations were obtained and cardiac output/cardiac index was calculated using the Daysi principle. The Paiz catheter was removed. Bilateral selective coronary angiography was performed using JL4 and JR4 catheters. After reviewing the images, it was elected to conclude the procedure. A 6-Belarusian MynxGrip closure device was deployed per protocol [...] moderate-sized branching second diagonal shows a 70% einlkvhl-al-wyq vessel stenosis. Left circumflex coronary artery. This [...] Aj M.D. Date Trans: 03/18/2021 02:36 A/refugio [id number] cc: Dontae Uribe D.O. [address] [place] [id number] Agustin Valencia D.O. [address] [place] [address] Normal The [facility] Consent for COVID Vaccineon 12-29-2020 SARS-CoV-2 (COVID-19) RNA EDA+probe Ql (Unsp spec) [id number] .00CD:127 [facility] Consent for COVID Vaccineon 12-06-2020 SARS-CoV-2 (COVID-19) RNA EDA+probe Ql (Unsp spec) [id number]# 1.00CD:127 [facility] Consent for Treatmenton 11-18 Consent for Treatment [id number]# 1.00CD:127 [facility] Coding Summary.on 12-04-2020 Coding Summary. CODING DATE: 12/04/2020 FINAL [facility] DSC STATUS: PAYOR: Medicare APC DESCRIPTION [...] Sarah Bernal Date Saved: 12/04/2020 03:11 pm [facility] Vital Signs Date Time Vital Sign Value Performing Clinician Facility 08-16-2023 08:30-0500 Body height 168.91 cm [facility] [employer] [facility] Other [facility] Other 08-16-2023 08:30-0500 Body mass index (BMI) [Ratio] 18.31 kg/m2 [facility] Other [facility] Other 08-16-2023 08:30-0500 Body weight 52.25 kg [facility] [employer] [facility] Other [facility] Other 08-16-2023 08:30-0500 Diastolic blood pressure 76 mm[Hg] [facility] [employer] [facility] Other [facility] Other 08-16-2023 08:30-0500 Respiratory rate 12 /min Dontae Ball Other [facility] Other 08-16-2023 08:30-0500 Systolic blood pressure 155 mm[Hg] Dontae Ball Other [facility] Other 05-12-2023 13:45-0400 Body height 168.91 cm Dontae Ball Other [facility] Other 05-12-2023 13:45-0400 Body mass index (BMI) [Ratio] 18.44 kg/m2 Dontae Ball Other [facility] Other 05-12-2023 13:45-0400 Body weight 52.62 kg Dontae Ball Other [facility] Other 05-12-2023 13:45-0400 Diastolic blood pressure 88 mm[Hg] Dontae Ball Other [facility] Other 05-12-2023 13:45-0400 Respiratory rate 12 /min Dontae Ball Other [facility] Other 05-12-2023 13:45-0400 Systolic blood pressure 138 mm[Hg] Dontae Ball Other [facility] Other 04-22-2023 13:30-0400 Body height 168.91 cm Travis Richter Other [facility] Other 04-22-2023 13:30-0400 Body mass index (BMI) [Ratio] 18.28 kg/m2 Travis Richter Other [facility] Other 04-22-2023 13:30-0400 Body weight 52.16 kg Traivs Richter Other [facility] Other 04-22-2023 13:30-0400 Diastolic blood pressure 78 mm[Hg] Travis Richter Other [facility] Other 04-22-2023 13:30-0400 Systolic blood pressure 137 mm[Hg] Travis Richter Other [facility] Other 03-18-2023 09:15-0400 Body height 168.91 cm Dontae Ball Other [facility] Other 03-18-2023 09:15-0400 Body mass index (BMI) [Ratio] 18.25 kg/m2 Dontae Ball Other [facility] Other 03-18-2023 09:15-0400 Body weight 52.07 kg Dontae Ball Other [facility] Other 03-18-2023 09:15-0400 Diastolic blood pressure 77 mm[Hg] Dontae Ball Other [facility] Other 03-18-2023 09:15-0400 Respiratory rate 12 /min Dontae Ball Other [facility] Other 03-18-2023 09:15-0400 Systolic blood pressure 145 mm[Hg] Dontae Ball Other [facility] Other 04-21-2022 15:15-0400 Body height 168.91 cm Travis Richter Other [facility] Other 04-21-2022 15:15-0400 Body mass index (BMI) [Ratio] 18.28 kg/m2 Travis Richter Other [facility] Other 04-21-2022 15:15-0400 Body weight 52.16 kg Travis Richter Other [facility] Other Encounters Encounter Date Encounter Type Care Provider Facility Start: 08-19-2023 End: 08-19-2023 ambulatory Dontae Uribe Other [facility] Media Other Start: 08-19-2023 Telephone encounter Dontae Uribe [facility] Start: 08-16-2023 End: 08-16-2023 ambulatory Dontae Uribe Other [employer] Other Start: 08-16-2023 Patient encounter procedure Dontae Uribe [facility] Start: 05-27-2023 End: 05-27-2023 ambulatory Dontae Uribe Other [employer] Other Start: 05-27-2023 Telephone encounter Dontae Uribe [facility] Start: 05-12-2023 End: 05-12-2023 ambulatory Dontae Uribe Other [employer] Other Start: 05-12-2023 Office outpatient visit 15 minutes Dontae Uribe [facility] Start: 04-22-2023 End: 04-22-2023 ambulatory Travis Richter Other [employer] Other Start: 04-22-2023 Office outpatient visit 15 minutes Travis Richter [facility] Start: 03-18-2023 End: 03-18-2023 ambulatory Dontae Uribe Other [employer] Other Start: 03-18-2023 Office outpatient visit 15 minutes Dontae Uribe [facility] Start: 03-12-2023 End: 03-12-2023 ambulatory Dontae Uribe Other [employer] Other Start: 03-12-2023 Office outpatient visit 15 minutes Dontae Uribe [facility] Start: 03-09-2023 End: 03-09-2023 ambulatory Dontae Uribe Other [employer] Other Start: 03-09-2023 Telephone encounter Dontae BANUELOS [facility] Start: 01-14-2023 End: 01-14-2023 ambulatory Dontae Uribe Other [employer] Other Start: 01-14-2023 Telephone encounter Dontae BANUELOS [facility] Start: 01-11-2023 End: 01-11-2023 ambulatory Dontae Uribe Other [employer] Other Start: 01-11-2023 Office outpatient visit 15 minutes Dontae Uribe [facility] Start: 11-24-2022 End: 11-25-[address] DONTAE URIEB Facility:[facility] Start: 11-23-2022 End: 11-23-[address] [facility] Start: 10-16-2022 End: 10-16-2022 ambulatory Dontae Uribe Other [employer] Other Start: 10-16-2022 Office outpatient visit 15 minutes Dontae Uribe [facility] Start: 10-16-2022 Telephone encounter Dontae BANUELOS [facility] Start: 10-06-2022 End: 10-07-2022 ambulatory TOMÁS GONZALESS Facility:[facility] Start: 09-15-2022 Adult health examination Dontae Uribe Other [employer] Other Start: 07-03-2022 ambulatory TOMÁS PIPPA Facility:[facility] Start: 07-01-2022 End: 07-01-2022 ambulatory TOMÁS DAS [facility] Start: 04-21-2022 End: 04-21-2022 ambulatory Travis Richter Other [employer] Other Start: 04-21-2022 Office outpatient visit 15 minutes Travis Richter [facility] Start: 04-14-2022 End: 04-15-[address] JANAY AJ Facility:[facility] Start: 03-05-2022 End: 03-06-[address] JANAY AJ Facility:[facility] Start: 11-27-2021 End: 11-28-[address] DONTAE URIBE Facility:[facility] Start: 04-02-2021 End: 04-06-2021 Evaluation and management of inpatient FELISA ERIKUNALOR Facility:[facility] Start: 03-25-2021 End: 03-26-2021 ambulatory FELISA MARIA E Facility:[facility] Start: 03-17-2021 End: 03-18-2021 ambulatory JANAY AJ Facility:[facility] Procedures Date Procedure Procedure Detail Performing Clinician [...] above: Performed By: #### 3 [id number] #### [address] Coronary artery bypa ss graft Dontae Uribe Other Depression screening Kushal Uribe Other Screening for malign ant neoplasm of breast Dontae Uribe Other Immunizations Immunization Date Immunization Notes Care Provider Fa jerald 07-27-2023 influenza, high dose seasonal, preservative-free Dontae Uribe Other [employer] Other 09-17-2021 COVID-19 Vaccine Pfi zer - Documentation Purposes Only Dontae Uribe Other [employer] Other 01-14-2018 diphtheria, tetanus toxoids and acellular pertussis vaccine, unspecified formulation Dontae Uribe Other [employer] Other Payers Date Payer Category Payer Medicare [id number] 1958 Self-pay [id number] 1958 Unknown [id number] 1950 Unknown [id number] 2.16.8 [id number] 1950 Unknown [id number] 2.16.8 [id number] 1950 Unknown [id number] 2.16.8 [id number] 1950 Unknown [id number] 2.16.84 [id number] 1950 Unknown [id number] 2.16.84 [id number] 1950 Unknown [id number] 2.16.84 [id number] 1950 Unknown [id number] 2.16.84 [id number] Unknown [id number] 2.16.84 [id number] Unknown [id number] 2.16.84 [id number] Social History Date Type Detail Facility Unknown if ever smoked [employer] Other Sex Assigned At Sex Assigned At Bir th [employer] Other Clinical Notes 09-20-2012 to 08-16-2023 Note [...] 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 Jul, Pure hypercholesterolemia (ICD-10 - E78.00) Instructed [...] High risk medication use (ICD-10 - Z79.899) [employer] Other 09-07-2023 Evaluation note* Encounter Date Diagnosis Assessment Notes Treatment Notes Treatment Clinical Notes May, Acute cough (ICD-10 - R05.1) [employer] Other 08-23-2023 Evaluation note* Encounter Date Diagnosis [...] 135/85 May be increased due to pain [employer] Other 08-03-2023 Evaluation note* Encounter Date Diagnosis [...] is taking OTC probiotics RTO 1 year [employer] Other 06-29-2023 Evaluation note* Encounter Date Diagnosis [...] quality. Continue LABA/ICS and SHERLYN as needed [employer] Other 06-23-2023 Evaluation note* Encounter Date Diagnosis [...] SHERLYN to q 4 hours as needed [employer] Other 06-20-2023 Evaluation note* Encounter Date Diagnosis Assessment Notes Treatment Notes Treatment Clinical Notes Feb, Mild intermittent asthma with acute exacerbation (ICD-10 - J45.21) [employer] Other 04-27-2023 Evaluation note* Encounter Date Diagnosis Assessment Notes Treatment Notes Treatment Clinical Notes Dec, Acute non-recurrent maxillary sinusitis (ICD-10 - J01.00) [employer] Other 04-24-2023 Evaluation note* Encounter Date Diagnosis [...] or severe dyspnea. Restart Prednisone as needed [employer] [facility] [...] Father Alzheimer's disease Father Allergies Cephalosporins, Penicillins, Znovdxu-jku-vmd reductase inhibitors, and Ciprofloxacin Medications Current Outpatient [...] should problems arise Janay Aj MD, MPH, [facility], [facility], [facility] Interventional Cardiology Pager Email: [email or web address] Evaluation note* Encounter Date Diagnosis Assessment Notes [...] to continue exercise and AHA diet plan. [employer] Other 01-27-2023 Evaluation note* Encounter Date Diagnosis Assessment Notes Treatment Notes Treatment Clinical Notes Sep, Acute non-recurrent maxillary sinusitis (ICD-10 - J01.00) [employer] Other 10-12-2022 NoteRepatha once/month Continue zetia [facility] Notedenied [facility]10-12-2022 NoteB/p uncontrolled today 181/80 and she states that lately at home b/p has been 130-150 systolic and a little higher than typical. Increase losartan to 50 mg daily for better HTN management Renal function in November and March was normal, will repeat labs with next lab draw Monitor b/p at home and call if remains > 130/80 or for any concerns of lightheadedness/dizziness, syncopeUnSt. Mary[facility]10-12-2022 NoteNo concerning symptoms today Tolerating cardiac rehab [...] labs/lipid level in 3 months RTC 3 monthsUnSt. [facility]10-12-2022 NoteSubjective Ambar Brewster is a 72 y.o. [...] and SOB. Still does cardiac rehab at [facility] 3 times a week. Review of Systems Gastrointestinal: Positive for constipation. Objective Physical Exam Vital Signs Ht 1.676 m (5' 6 ) BMI 18.24 kg/m??? Lab Review: Assessment/Plan There were no encounter diagnoses.[facility]10-12-2022 NoteHPI: Ambar Brewster is a 72 y.o. [...] and SOB. Still does cardiac rehab at [facility] 3 times a week. Review of Systems [...] Continue zetia Repeat labs (more content not included)...[facility] 04-21-2022 Evaluation note* Encounter Date Diagnosis Assessment Notes Treatment Notes Treatment Clinical Notes Apr, Dysphagia (ICD-10 - R13.10) Apr, Schatzki's ring (ICD-10 - Q39.4) Apr, Constipation (ICD-10 - K59.00) CONTINUE MIRALAX PRN CONTINUE COLACE WITHOUT CHANGE RTO ONE YEAR Apr, Abdominal pain (ICD-10 - R10.9) CONTINUE BENTYL WITHOUT CHANGE [employer] Other 08-18-2021 NoteMR#: [id number] I [facility] Pt. Name: Ambar Brewster Admitted: 04/02/2021 Discharged: [...] Shoemaker CNP Date Trans: 05/07/2021 03:44 P/refugio [id number] cc: Dontae Uribe D.O. [address] [place] [address] A [facility] [id number] History general Narrative - Reported* Type Description [...] Total Hysterectomy 1978 Hospitalization History Appendectomy 1968 [employer] Other Evaluation noteNo InformationNort [employer] Other History general Narrative - Reported* Type [...] Medical History Mild intermittent asthma with ac [place] exacerbation Medical History Eczema, dyshidrotic Medical History [...] Total Hysterectomy 1978 Hospitalization History Appendectomy 1968 [employer] Other History general Narrative - Reported* Type [...] Medical History Mild intermittent asthma with ac [place] exacerbation Medical History Eczema, dyshidrotic Medical History [...] Total Hysterectomy 1979 Hospitalization History Appendectomy 1968 [employer] Other Summary Purpose Family History No Family [...] and content) DATE CREATED AUTHOR 03/22/2021 Miguel Melty [facility] DATE CREATED AUTHOR AUTHOR'S ORGANIZ ATION 05/09/2021 [facility] DATE CREATED AUTHOR AUTHOR'S ORGANIZ ATION 03/12/2022 [facility] DATE CREATED AUTHOR AUTHOR'S ORGANIZ ATION 11/25/2022 [facility] DATE CREATED AUTHOR AUTHOR'S ORGANIZ ATION 11/26/2022 [facility] REASON FOR VISIT (unrecogniz ed section and content) PATIENT HERE FOR FOLLOW UP T O EGD ON 03/10/2022 FOR DYSPHAGIA., SHE STOPPED LINZESS DUE TO COST, SHE IS HAPPY ON MIRALAX AND COLACE AND HER BOWELS ARE MOVING NORMALLYsinus congestionNo InformationSinuses- [phone], drainage, thick yellow mucus, left ear painmigraine, [...] BE BASED ON THE PRIMARY CLINICAL RECORDS. [employer] [facility]. provides no warranty or guarantee of the accuracy or completeness of information in this document.
== END 2023-12-01 10:17 | disposition home or self-care (01) ==
LOC: RAD 10:16
PROVIDERS: PCP Internal Medicine; Visit Provider Internal Medicine
DX: M47.816 Spondylosis without myelopathy or radiculopathy, lumbar region (principal); M25.551 Pain in right hip; M25.552 Pain in left hip; M51.36 Other intervertebral disc degeneration, lumbar region; M16.0 Bilateral primary osteoarthritis of hip
CPT/HCPCS: 72114; 73522

== ENCOUNTER 2023-12-15 10:18 | Outpatient (OUT) | payer MEDICARE, SELFPAY ==
[2023-12-15 11:33] LABS: Basophils Absolute Auto 0.1 10^3/uL (0.0-0.1); Basophils Percent Auto 1.1 % (0.2-2.0); Eosinophils Absolute Auto 0.2 10^3/uL (0.0-0.7); Hematocrit 36.6 % (36.0-48.0); Hemoglobin 11.8 g/dL (12.0-16.0); Immature Granulocytes Abs Auto 0.01 10^3/uL (0.00-0.03); Immature Granulocytes Pct Auto 0.2 % (0.0-0.5); Lymphocytes Absolute Auto 1.5 10^3/uL (1.2-3.8); Lymphocytes Percent Auto 22.6 % (20.5-60.0); Mean Corpuscular HGB Conc 32.2 g/dL (29.9-35.2); Mean Corpuscular Hemoglobin 31.4 pg (26.7-34.0); Mean Corpuscular Volume 97.3 fL (81.0-99.0); Mean Platelet Volume 10.1 fL (9.5-13.5); Monocytes Absolute Auto 0.6 10^3/uL (0.3-0.8); Monocytes Percent Auto 8.4 % (1.7-12.0); Neutrophils Absolute Auto 4.3 10^3/uL (1.4-6.5); Neutrophils Percent Auto 64.7 % (43.0-75.0); Platelet Count 275 10^3/uL (150-450); Red Blood Count 3.76 10^6/uL (4.20-5.40); Red Cell Distribution Width 12.8 % (11.0-15.0); White Blood Count 6.7 10^3/uL (4.0-11.0)
[2023-12-15 12:00] LABS: Free T4 1.04 ng/dL (0.76-1.46)
[2023-12-15 12:05] LABS: Alanine Aminotransferase 22 U/L (14-59); Albumin Globulin Ratio 1.1; Alkaline Phosphatase 63 U/L (46-116); Anion Gap 13.7; Aspartate Amino Transferase 16 U/L (15-37); BUN Creatinine Ratio 18.7; Bilirubin Total 0.4 mg/dL (0.2-1.0); Calcium 9.3 mg/dL (8.5-10.1); Carbon Dioxide 30.5 mmol/L (21.0-32.0); Chloride 103 mmol/L (98-107); Estimated GFR (African America >60 (>=60); Estimated GFR (Non-African Ame >60 (>=60); Globulin 3.8 g/dL; Glucose 97 mg/dL (74-106); Potassium 4.2 mmol/L (3.5-5.1); Sodium 143 mmol/L (136-145); Thyroid Stimulating Hormone 1.181 uIU/mL (0.358-3.740); Total Protein 7.8 g/dL (6.4-8.2)
== END 2023-12-15 10:19 | disposition home or self-care (01) ==
LOC: LAB 10:19
PROVIDERS: PCP Internal Medicine; Visit Provider Internal Medicine Interventional Cardiology
DX: R06.09 Other forms of dyspnea (principal)
CPT/HCPCS: 36415; 80053; 83880; 84439; 84443; 85025

== ENCOUNTER 2023-12-22 09:01 | Outpatient (OUT) | payer MEDICARE, SELFPAY ==
--- NOTE | 2023-12-22 09:30 | CA_ITS ---
Patient Name: SJ HALL MR#: [id number] : 1950 Exam Date: 12/22/2023 Ordering Doctor: DR MAKEDA AJ M.D. ECHOCARDIOGRAM REPORT PROCEDURE: CA ECHO DOPPLER COMPLETE INDICATIONS: Dyspnea on exertion, CABGx4, hypertension COMPARISON: None. DESCRIPTION: COMPLETE ECHOCARDIOGRAM Real-time transthoracic echocardiography with 2D, M-mode, spectral and color flow Doppler performed. QUALITY: Technical quality was good. 65 , 115#, BSA 1.56 m2, BP 182/90 LEFT VENTRICLE: Normal chamber size. Mild concentric left ventricular hypertrophy. LV EF: Global left ventricular systolic function is normal; visually estimated ejection fraction is 60 to 65%. No wall motion abnormalities. DIASTOLIC: Normal diastolic function. ATRIAL SEPTUM: Visually appears intact. LEFT ATRIUM: Normal chamber size. RIGHT ATRIUM: Normal chamber size. RIGHT VENTRICLE: Normal chamber size. Normal right ventricular systolic function. TRICUSPID VALVE: Normal mobility and thickness. Trivial tricuspid regurgitation. Unable to assess right-sided pressures due to lack of measurable tricuspid regurgitation. MITRAL VALVE: Normal mobility and thickness. No evidence of mitral valve stenosis. There is no mitral annular calcification. Mild mitral regurgitation. AORTIC VALVE: Normal trileaflet appearance. No visible sclerosis. Normal leaflet mobility. No evidence of aortic valve stenosis. No aortic regurgitation. AORTIC ROOT: Normal diameter and appearance. PULMONIC VALVE: Normal thickness and mobility. No stenosis. Mild regurgitation. PERICARDIUM: No evidence of pericardial effusion. IVC: Collapses with inspirations. CONCLUSION: 1. Global left ventricular systolic function is normal; visually estimated ejection fraction is 60 to 65% 2. Normal right ventricular size and systolic function 3. Mildly increased left ventricular wall thickness 4. Normal diastolic function 5. Mild mitral regurgitation 6. Mild pulmonic regurgitation Adult Echocardiography Procedure Report Left Ventricle LVEDD (3.7 - 5.6 cm): 3.51 cm LVESD (2.2 - 4.0 cm): 2.02 cm LVIVS thickness (0.6 - 1.2 cm): 1.33 cm LVPW thickness (0.5 - 1.0 cm): 1.03 cm e': 0.10 m/s E - e': 5.75 LVOT Max Gradient: 2.76 mm[Hg] LVOT Area (cm2): 0.83 m/s Peak Velocity (LVOT): 0.83 m/s Mean Velocity (LVOT): 0.59 m/s LVOT Diameter 2.11 cm Left Atrium LA Volume Index (2D A2C): 24.47 ml/m2 Left Atrium Systolic Dimension: 3.16 cm Mitral Valve MV E to A Ratio: 0.91 Mitral Valve A-Wave Peak Velocity: 0.64 m/s Mitral Valve E-Wave Peak Velocity: 0.58 m/s Right Ventricle Aorta AO Root Diam: 2.96 cm Aortic Valve AoV Area (Peak Ash): 2.44 cm2, 2.44 cm2 AoV Area (VTI): 2.60 cm2, 2.60 cm2 Peak Velocity(Antegrade Flow): 1.19 m/s Peak Gradient(Antegrade Flow): 5.68 mm[Hg] Mean Velocity(Antegrade Flow): 0.84 m/s Mean Gradient(Antegrade Flow): 3.22 mm[Hg] Velocity Time Integral: 29.65 cm Tricuspid Valve Peak Velocity (Regurgitant Flow): Pulmonic Valve Peak Gradient: 2.32 mm[Hg], 2.37 mm[Hg] Right Atrium Right Atrium Systolic Pressure: 35.36 ml, 35.36 ml Dictated by: Makeda Aj M.D. on 12/22/2023 at 14:20 Approved by: Makeda Aj M.D. on 12/22/2023 at 14:24
== END 2023-12-22 09:02 | disposition home or self-care (01) ==
LOC: CARD 09:04
PROVIDERS: PCP Internal Medicine; Visit Provider Internal Medicine Interventional Cardiology
DX: R06.09 Other forms of dyspnea (principal)
CPT/HCPCS: 93306

== ENCOUNTER 2023-12-23 11:04 | Outpatient (OUT) | payer MEDICARE, SELFPAY ==
--- NOTE | 2023-12-23 10:40 | NM_ITS ---
Patient Name: SJ HALL MR#: [id number] : 1950 Exam Date: 12/23/2023 Ordering Doctor: DR Janay Aj M.D. RADIOLOGY REPORT PROCEDURE: NM CATHIE PERF SPECT REST STR COMPARISON: None. INDICATIONS: DYSPNEA, FATIGUE, PALPITATIONS TECHNIQUE: Exam Description: Stress/Rest one day protocol gated SPECT Rest Imagin.4 mCi Tc-99m Cardiolite IV on 12/23/2023 Stress Imaging 29.8 mCi Tc-99m Cardiolite IV on 12/23/2023 Exercise Protocol: 0.4 mg Lexiscan given IV Heart Rate (bpm): Rest: 64 Max: 108 PMHR: 68 Blood Pressure: Rest: 146/86 Max: 162/90 Symptoms: Rest and peak stress ECG findings were abnormal and the exercise portion of the study was abnormal per attending physician Dr. Marc Uribe due to EKG changes. For more details please see separate cardiac stress test report. FINDINGS: QUALITY OF STUDY: Excellent. PERFUSION DEFECT: None. LOCATION: N/A SIZE: N/A. SEVERITY: N/A. TYPE: N/A. WALL MOTION: Normal. LV SIZE: Normal. 41 mL. TID / TCD: None; 0.7 LVEF: Normal. Calculated EF 87%. SUMMARY: Myocardial perfusion imaging study is NORMAL. CONCLUSION: 1. Normal nuclear medicine myocardial perfusion scan. Dictated by: Rikki Yang M.D. on 12/23/2023 at 14:49 Approved by: Rikki Yang M.D. on 12/23/2023 at 14:51
--- NOTE | 2023-12-23 12:47 | PM.STRESS ---
Stress Test Stress Test Requesting physician: Janay Aj Procedure: Lexiscan Stress Test General Information: Reason for Stress Test: [Evaluation of SSCP in patient w/ known CAD.] Cardiac History and Risk Factors: [73 year old w/ known CAD. s/p CABG x 4 w/ strong family hx of CAD. Primary risk factors include HTN, HLD. ] Resting 12 - Lead Electrocardiogram: Normal sinus rhythm with a ventricular rate of 65 bpm. The CA interval is 0.16, QRS 0.088 QT 0.40 all within normal limits.there are no pathologic Q waves and only slight intraventricular conduction delay noted. Last[place] there is nonspecific ST-T wave changes. Stress Test: Protocol: [. Lexiscan protocol] Exercise Capacity: [. Not applicable] Blood Pressure Response: [. The patient's heart rate and blood pressure increased during infusion.] Rhythm: [. The patient remained in sinus rhythm without ectopy, throughout the infusion.] ST - Response: [beginning within one minute of infusion, there was downsloping ST T wave changes noted in the inferior lateral leads. This required sublingual nitroglycerin in several minutes to resolved after completion of the infusion.] Patient Response: [The patient did experience substernal chest discomfort during infusion which resolved with administration of sublingual nitroglycerin.] Interpretation: . There were objective EKG changes along with SSCP, during infusion, suspicious for myocardial ischemia. Cardiolite was injected with images in interpretation pending.
[2023-12-23] MEDS: REGADENOSON 0.4 MG/5 ML SYRINGE 0.400000000000000022 MG IV (12:53)
== END 2023-12-23 11:05 | disposition home or self-care (01) ==
LOC: NM 11:05
PROVIDERS: PCP Internal Medicine; Visit Provider Internal Medicine Interventional Cardiology
DX: R06.09 Other forms of dyspnea (principal)
CPT/HCPCS: 78452; 93017; A9500; J2785

== ENCOUNTER 2024-01-28 07:10 | Outpatient (OUT) | payer MEDICARE, SELFPAY ==
--- OUTSIDE RECORDS SUMMARY | 2024-01-28 07:12 | XMS_ITS | CCD ---
Author Organization [facility] Care Team Providers Care Compensation And Benefits Advisor Name Role Phone FELISA HYATT Attending Unavailable ASUNCION, DONTAE Primary Care Unavailable ASUNCION, DONTAE Referring Unavailable MASROOR, FELISA Admitting Unavailable LUCASOR, FELISA Attending Unavailable ASUNCION, DONTAE Primary Care Unavailable ASUNCION, DONTAE Referring Unavailable MASROOR, FELISA Admitting Unavailable MASROOR, FELISA Surgeon Unavailable [facility] Procedure Practitioner Unavailab le ELTAHAWKaleigh, JAVEDAB A Admitting Unavailable ELADALGISAHAWY, EHAB Alba Attending Unavailable ASUNCION, DONTAE Primary Care Unavailable ASUNCION, DONTAE Referring Unavailable Travis Richter Unavailable Dontae Uribe Unavailable PIPPA, TOMÁS Admitting Unavailable PIPPA, TOMÁS [...] Unavailable ELTAHAWY, DR ASHFORD Consulting Unavailable ELTAHAWY, JANAY Attending Unavailable ELTAHAWY, JANAY Attending Unavailable Allergies Allergy Classification Reported Allergen(s) Allergy Type Date of Onset Reaction(s) Facility (4 sources) black walnut pollen extract; Translations: [[id number]-SUA REDUCTASE INHIBITORS] Drug Allergy 07-31-20 09 [facility] Repository (8 sources) Cephalosporins (Antibiotic); Translations: [CEPHALOSPORINS] Drug allergy (disorder) 07-31-20 09 [facility] Repository (1 source) Ciprofloxacin; Translations: [CIPRO] Drug Allergy 03-27-20 21 [facility] Repository (8 sources) Penicillins; Translations: [PENICILLINS] Drug allergy (disorder) 07-31-20 09 [facility] Repository (12 sources) Hmg-Coa Reductase Inhibitors (Statins) Propensity to adverse reactions SWELLING [facility] Other (12 sources) Pcn, Cephalasporins Propensity to adverse reactions (Eriberto) 10/07/2012 [facility] Other (18 sources) Ciprofloxacin; Translations: [CIPROFLOXACIN] Drug Allergy 08-30-20 13 Unknown, [facility] (13 sources) Substance with sulfonamide structure and antibacterial mechanism of action (substance) Drug allergy Unknown [facility] Other (2 sources) Sulfonamides (Antibiotic) Drug allergy (disorder) 06-23-20 13 [facility] Repository (6 sources) HMG-CoA reductase inhibitor Drug allergy Unknown [facility] Other (6 sources) Penicillin G Benzathine & Proc Drug allergy 01-15-20 18 Unknown [facility] Other (4 sources) Statins Support *DIETARY PRODUCTS/DIETARY MANAGEME Propensity to adverse reactions 01-15-20 18 Unknown [facility] Other (1 source) Substance with penicillin structure and antibacterial mechanism of action (substance) Drug allergy Unknown [facility] Other (6 sources) Medicinal cephalosporin and acting as antibacterial agent (FN) Drug allergy 01-15-20 18 Unknown [facility] Other (1 source) patient allergy list reviewed by nurse or physicia Propensity to adverse reactions 01-15-20 Comment:Done [facility] Other (4 sources) Cefaclor Drug Allergy 03-10-20 22 [facility] (4 sources) Penicillin G Benzathine Allergy to substance 08-16-20 Unknown Reaction [facility] (4 sources) Sulfonamides (Antibiotic) Allergy to substance 08-16-20 Rash [facility] (4 sources) [id number] Reductase Inhibitor Allergy to substance 08-16-20 Joint Pain [facility] Medications Current Medications Medication Drug Class(es) Dates Sig (Normalized) Sig (Original) [id number] 200 actuat albuterol 0.09 mg/actuat metered dose inhaler (17 sources) beta2-Adrenergic Agonist Start: 11-30-2023 take 1 puff(s) by inhalation every four hours Albuterol Sulfate Active 1 PUFF INHALATION Every 4 hours November 30, 2023 12:00am take 1 puff(s) by in halation every four hours as needed Albuterol Sulfate HFA 108 (90 Base) MCG/ACT 1 puff as needed Inhalation every 4 hrs Active amLODIPine 2.5 mg oral tablet (19 sources) Dihydropyridine Calcium Channel Mariah Start: 12-24-2023 take 2.5 mg by mouth once daily Amlodipine Active 2.5 MG PO Daily December 24, 2023 12:00am Start: 07-07-2017 End: 03-10-2022 take 1 tablet by mouth once daily Amlodipine Discontinued 1 TAB PO Daily July 07, 2017 12:00am March 10, 2022 9:44am aspirin 81 mg delayed release oral tablet (18 sources) Platelet Aggregation Inhibitor, Nonsteroidal Anti-inflammatory Drug Start: 07-07-2017 take 1 tablet by mouth once daily Aspirin (Aspir-Low) 81 mg Tablet,Delayed Release (Dr/Ec) Active 1 TAB PO Daily July 07, 2017 12:00am take 2 tablets by [facility] every twenty-four hours Aspirin 81 MG 2 tablet Orally Once a day Active azithromycin 250 mg oral tablet (20 sources) Macrolide Antimicrobial Start: 11-30-2023 Azithromycin Active 250 MG PO As Directed 02 22November 30, 2023 12:00am Start: 05-25-2023 take 250 mg by mouth once daily Start: 10-16-2022 Azithromycin 2 50 MG as directed Orally daily for 5 days Feb, Not-Taking Azithromycin 250 MG 2 tablet today followed by 1 daily Orally DAILY for 5 days Not-Taking Calcium (4 sources) Phosphate Binder, Calcium Start: 11-30-2023 take 1 tablet by mouth once daily [id number] (Caltrate 600-D Plus Minerals) 600 mg calcium- 800 unit-50 mg tablet Active 1 TAB PO Daily November 30, 2023 12:00am Caltrate 600+D Plus Minis (13 sources) Caltrate 600+D P dung Minis Active carvedilol 25 mg oral tablet (20 sources) alpha-Adrenergic Mariah, beta-Adrenergic Mariah Start: 03-10-2022 take 25 mg by mouth twice daily Carvedilol Active 25 MG PO Twice daily March 10, 2022 12:00am Start: 07-07-2017 End: 03-10-2022 take 1 tablet by mouth twice daily Carvedilol Discontinued 1 TAB PO Twice daily July 07, 2017 12:00am March 10, 2022 9:42am clopidogrel 75 mg oral tablet (20 sources) [id number] Platelet Inhibitor Start: 11-30-2023 take 1 tablet by mouth once daily Clopidogrel (Plavix) 75 mg tablet Active 75 MG PO Daily November 30, 2023 12:00am Start: 07-07-2017 End: 03-10-2022 take 1 tablet by mouth once daily Clopidogrel Discontinued 1 TAB PO Daily July 07, 2017 12:00am March 10, 2022 9:44am dicyclomine hydrochloride 10 mg oral tablet (14 sources) Anticholinergic take 1 capsule by mouth four times daily as needed 1 ml evolocumab 140 mg/ml prefilled syringe (18 sources) PCSK9 Inhibitor Start: 03-10-2022 Evolocumab (Repatha Syringe) 140 mg/mL Syringe Active 140 MG SUBCUT EVERY 2 WEEKS March 10, 2022 12:00am inject 1 mL by subcu taneous injection every month Repatha 140 MG/ML 1 mL Subcutaneous ONCE A MONTH Active Repatha Active ezetimibe 10 mg oral tablet (18 sources) Dietary Cholesterol Absorption Inhibitor Start: 03-10-2022 take 1 tablet by mouth once daily Ezetimibe (Zetia) 10 mg Tablet Active 10 MG PO Daily March 10, 2022 12:00am Zetia Active furosemide 20 mg oral tablet (11 sources) Loop Diuretic Start: 11-30-2023 take 1 tablet by mouth once daily Furosemide (Lasix) 20 mg tablet Active 20 MG PO Daily November 30, 2023 12:00am take 1 tablet by lucita th every twenty-four hours Lasix 20 MG 1 tablet Orally Once a day Active linaclotide 0.145 mg oral capsule (18 sources) Guanylate Cyclase-C Agonist Start: 01-09-2014 take 1 tablet by mouth once daily Linaclotide Active 1 TAB PO Daily July 07, 2017 12:00am losartan potassium 25 mg oral tablet (18 sources) Angiotensin 2 Receptor Mariah Start: 03-10-2022 take 25 mg by mouth once daily Losartan Active 25 MG PO Daily March 10, 2022 12:00am Losartan Potassi um Active nitroglycerin 0.4 mg sublingual tablet (1 source) Nitrate Vasodilator Start: 12-24-2023 Nitroglyce rin Active 0.4 MG SUBLINGUAL every 5 to 15 minutes December 24, 2023 12:00am do not exceed 3 doses per episode Plenvu Bowel Prep PEG 3350 140g, Sodium Ascorbate 48.11g, Sodium [...] day before your procedure for 1 days BIN:[id number] PCN: [id number] GROUP:[id number] ID:[id number] Nov, Not-Taking predniSONE 1 mg/ml oral solution [...] Drug Class(es) Dates Sig (Normalized) Sig (Original) acetaminophen 500 mg oral tablet (4 sources) Start: 07-07-2017 End: 06-21-2022 take 1 tablet by mouth every six hours Acetaminophen (Tylenol Extra Strength) 500 mg Tablet Discontinued 1 TAB PO Q6H July 07, 2017 12:00am March 10, 2022 9:44am benzonatate 200 mg oral capsule (3 sources) Non-narcotic Antitussive Start: 05-27-2023 take 1 capsule by mouth every eight hours Benzonatate 200 MG 1 capsule Orally Three times a day for 10 days May, Not-Taking docusate sodium 100 mg oral capsule (18 sources) Start: 07-07-2017 End: 03-10-2022 take 1 capsule by mouth once daily Docusate Sodium (Colace) 100 mg Capsule Discontinued 100 MG PO Daily July 07, 2017 12:00am March 10, 2022 9:44am Problems Active Problems Problem Classification Problem Date [...] [Mild persistent asthma, uncomplicated] Chronic Cardiac dysrhythmias (20 sources) Paroxysmal atrial fibrillation; Translations: [Paroxysmal atrial fibrillation] Chronic Cardiac dysrhythmias (2 sources) Palpitations; Translations: [Palpitations] Onset: 4 Episodic Chronic obstructive pulmonary disease and bronchiectasis (4 sources) Chronic bronchitis; Translations: [Unspecified chronic bronchitis] Onset: 8 Chronic Coronary atherosclerosis and other heart disease (20 sources) Coronary arteriosclerosis; Translations: [Atherosclerotic heart disease of [place] coronary artery without angina pectoris] Onset: 0 Resolved: 2 Chronic Coronary atherosclerosis and other heart disease (4 sources) Bypass stent graft present; Translations: [Presence of aortocoronary bypass graft] Episodic Deficiency and other anemia (4 sources) Anemia; Translations: [Anemia, unspecified] 11-23-2023 Episodic Deficiency and other anemia (2 sources) Pernicious anemia; Translations: [Vitamin B12 deficiency anemia due to intrinsic factor deficiency] 12-15-2023 Episodic Deficiency and other anemia (2 sources) Vitamin B12 deficiency anemia due to intrinsic factor deficiency; Translations: [Pernicious anemia] 12-15-2023 Episodic Digestive congenital anomalies (15 sources) Terminal esophageal web; Translations: [Esophageal web] Onset: 2 Resolved: 2 Chronic Disorders of lipid metabolism (20 sources) Pure hypercholesterolemia; Translations: [Familial hypercholesterolemia] Onset: 8 Chronic Esophageal disorders (20 sources) Stricture of esophagus; Translations: [Esophageal obstruction] 11-30-2023 Chronic Esophageal disorders (15 sources) Esophageal disorders; Translations: [Gastroesophageal reflux disease with esophagitis without hemorrhage] Essential hypertension (20 sources) Essential hypertension; Translations: [Essential (primary) hypertension] Onset: 3 Chronic Gastroduodenal ulcer (except hemorrhage) (4 sources) Peptic ulcer without hemorrhage, without perforation AND without obstruction; Translations: [Peptic ulcer, site unspecified, unspecified as acute or chronic, without hemorrhage or perforation] Chronic Gastrointestinal hemorrhage (14 sources) Rectal hemorrhage; Translations: [Hemorrhage of anus and rectum] Episodic Headache; including migraine (13 sources) Migraine with aura; Translations: [Migraine with aura, not intractable, without status migrainosus] Chronic Malaise and fatigue (2 sources) Other fatigue; Translations: [Other fatigue] Onset: 4 Episodic Nonspecific chest pain (20 sources) Chest wall pain; Translations: [Other chest pain] Resolved: 0 Episodic Osteoarthritis (17 sources) Localized, primary osteoarthritis of the shoulder region; Translations: [Primary osteoarthritis, right shoulder] Chronic Osteoporosis (17 sources) Primary osteoporosis; Translations: [Age-related osteoporosis without current pathological fracture] 11-30-2023 Chronic Other aftercare (1 source) Other halfway (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 therapy Episodic Other connective tissue disease (13 sources) Tendinitis of right rotator cuff; Translations: [Other shoulder lesions, right shoulder] Episodic Other connective tissue disease (4 sources) Mass of shoulder region; Translations: [Other shoulder lesions, right shoulder] Episodic Other gastrointestinal disorders (17 sources) Irritable bowel syndrome characterized by constipation; Translations: [Irritable bowel syndrome with constipation] 11-30-2023 Chronic Other gastrointestinal disorders (14 sources) Constipation; Translations: [Constipation, unspecified] Episodic Other gastrointestinal disorders (18 sources) Dysphagia; Translations: [Dysphagia, unspecified] 09-01-2023 Episodic Other gastrointestinal disorders (2 sources) Dysphagia, unspecified Onset: 2 Resolved: 2 Episodic Other gastrointestinal disorders (2 sources) Constipation, unspecified Onset: 2 Resolved: 2 Episodic Other gastrointestinal disorders (4 sources) H/O: gastrointestinal disease; Translations: [Personal history of other diseases of the digestive system] Episodic Other infections; including parasitic (4 sources) Post-viral disorder; 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] 11-30-2023 Chronic Other injuries and conditions due to external causes (4 sources) History of fall; Translations: [History of falling] Episodic Other lower respiratory disease (2 sources) Shortness of breath; Translations: [Shortness of breath] Onset: 4 Episodic Other non-traumatic joint disorders (4 sources) Shoulder joint pain; Translations: [Pain in right shoulder] Episodic Other screening for suspected conditions (not mental disorders or infectious disease) (1 source) Encounter for screening mammogram for malignant neoplasm of breast Episodic Other skin disorders (17 sources) Vesicular eczema of hands and/or feet; Translations: [Dyshidrosis [pompholyx]] Episodic Other skin disorders (4 sources) Vesicular eczema; Translations: [Dyshidrosis [pompholyx]] 11-30-2023 Episodic Other upper respiratory disease (20 sources) Allergic rhinitis due to pollen; Translations: [Allergic rhinitis due to pollen] 11-30-2023 Chronic Other upper respiratory infections (20 sources) Acute maxillary sinusitis; Translations: [Acute recurrent maxillary sinusitis] Episodic Residual codes; unclassified (13 sources) Asymptomatic menopausal state; Translations: [Menopause] Episodic Residual codes; unclassified (4 sources) Tobacco user; Translations: [Tobacco use] Episodic Residual codes; unclassified (4 sources) Postmenopausal state; Translations: [Asymptomatic menopausal state] Episodic Residual codes; unclassified (4 sources) Menopause present; Translations: [Asymptomatic menopausal state] 11-30-2023 Episodic Spondylosis; intervertebral disc disorders; other back problems (20 sources) Lumbar spondylosis; Translations: [Spondylosis without myelopathy or radiculopathy, lumbar region] Chronic Spondylosis; intervertebral disc disorders; other back problems (1 source) Radiculopathy, site unspecified Episodic Sprains and strains (17 sources) Neck sprain; Translations: [Strain of muscle, fascia and tendon at neck level, initial encounter] Episodic Unclassified (1 source) Other post infection and related fatigue syndromes; 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] Onset: Viral infection (4 sources) Disease caused by [...] Acute cough R05.1 Unclassified (2 sources) 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); Translations: [Post-COVID syndrome] Unclassified (1 source) Other post infection and related fatigue syndromes; 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] Onset: 01-05-2024 Results Test Name Value Interpretation Reference Range Facility Office Visiton 01-05-2024 Follow-up visit [id number] Angelo Brewster 1950 F Date Provider Department Center 01/05/2024 [id number] Family History Problem Relation Age of Onset Coronary artery disease Mother Coronary artery disease Father Alzheimer's disease Father Family Status - Relation Status Age at Mother Father Level of Service:85013 [facility] OFFICE/OUTPATIENT ESTABLISHED LOW MDM 20 MIN Normal [facility] Basophils Auto (Bld) [#/Vol] on 12-15-2023 Basophils (Bld) [#/Vol] 0.1 10 3/uL 0.0-0.1 [facility] Basophils/100 WBC Auto (Bld) on 12-15-2023 Basophils/100 WBC (Bld) 1.1 % 0.2-2.0 [facility] Eosinophils/100 WBC Auto (Bl d)on 12-15-2023 Eosinophils/100 WBC (Bld) 3.0 % 0.9-7.0 [facility] Erythrocyte distribution wid th Auto (RBC) [Ratio]on 12-15-2023 Erythrocyte distribution width (RBC) [Ratio] 12.8 % 11.0-15.0 [facility] Estimated glomerular filtrat ion rate (GFR) non- Americanon 12-15-2023 GFR/1.73 sq M.predicted among non-blacks MDRD (S/P/Bld) [Vol rate/Area] mL/min/{1.73_m2} >=60 [facility] Globulin Calc (S) [Mass/Vol] on 12-15-2023 Globulin (S) [Mass/Vol] 3.8 g/dL [facility] Hematocrit Auto (Bld) [Volum e fraction]on 12-15-2023 Hematocrit (Bld) [Volume fraction] 36.6 % 36.0-48.0 [facility] Hemoglobin [Mass/volume] in Bloodon 12-15-2023 Hemoglobin (Bld) [Mass/Vol] 11.8 g/dL 12.0-16.0 [facility] Laboratory - Chemistry and C hemistry - challengeon 12-15-2023 Albumin [Mass/Vol] 4.0 g/dL 3.4-5.0 [facility] ALP [Catalytic activity/Vol] 63 U/L 46-116 [facility] ALT [Catalytic activity/Vol] 22 U/L 14-59 [facility] AST [Catalytic activity/Vol] 16 U/L 15-37 [facility] Bilirubin [Mass/Vol] 0.4 mg/dL 0.2-1.0 [facility] Calcium [Mass/Vol] 9.3 mg/dL 8.5-10.[address] [facility] Chloride [Moles/Vol] 103 mmol/L 98-107 [facility] CO2 [Moles/Vol] 30.5 mmol/L 21.0-32.0 [facility] Creatinine [Mass/Vol] 0.75 mg/dL 0.55-1.02 [facility] Free T4 [Mass/Vol] 1.04 ng/dL 0.76-1.[address] [facility] GFR/1.73 sq M.predicted MDRD (S/P/Bld) [Vol rate/Area] mL/min/{1.73_m2} >=60 [facility] Glucose [Mass/Vol] 97 mg/dL 74-[address] [facility] Natriuretic peptide B (Bld) [Mass/Vol] 193.0 pg/mL <=900.0 [facility] Potassium [Moles/Vol] 4.2 mmol/L 3.5-5.1 [facility] Protein [Mass/Vol] 7.8 g/dL 6.4-8.[address] [facility] Sodium [Moles/Vol] 143 mmol/L 136-[address] [facility] TSH Qn 1.181 m[IU]/L 0.358-3.740 [facility] Urea nitrogen [Mass/Vol] 14.0 mg/dL 7.0-18.0 [facility] Urea nitrogen/Creatinine [Mass ratio] 18.7 mg/mg [facility] Laboratory - Hematology and Cell countson 12-15-2023 Immature granulocytes/100 WBC (Bld) 0.2 % 0.0-0.5 [facility] Leukocytes [#/volume] correc andrew for nucleated erythrocytes in Blood by Automated counon 12-15-2023 WBC corrected for nucl RBC Auto (Bld) [#/Vol] 6.7 10 3/uL 4.0-11.0 [facility] Lymphocytes Auto (Bld) [#/Vo l]on 12-15-2023 Lymphocytes (Bld) [#/Vol] 1.5 10 3/uL 1.2-3.8 [facility] Lymphocytes/100 WBC Auto (Bl d)on 12-15-2023 Lymphocytes/100 WBC (Bld) 22.6 % 20.5-60.0 [facility] MCH Auto (RBC) [Entitic mass ]on 12-15-2023 MCH (RBC) [Entitic mass] 31.4 pg 26.7-34.0 [facility] MCHC Auto (RBC) [Mass/Vol]on 12-15-2023 MCHC (RBC) [Mass/Vol] 32.2 g/dL 29.9-35.2 [facility] MCV Auto (RBC) [Entitic vol] on 12-15-2023 MCV (RBC) [Entitic vol] 97.3 fL 81.0-99.0 [facility] Monocytes Auto (Bld) [#/Vol] on 12-15-2023 Monocytes (Bld) [#/Vol] 0.6 10 3/uL 0.3-0.8 [facility] Monocytes/100 WBC Auto (Bld) on 12-15-2023 Monocytes/100 WBC (Bld) 8.4 % 1.7-12.0 [facility] Neutrophils Auto (Bld) [#/Vo l]on 12-15-2023 Neutrophils (Bld) [#/Vol] 4.3 10 3/uL 1.4-6.5 [facility] Neutrophils/100 WBC Auto (Bl d)on 12-15-2023 Neutrophils/100 WBC (Bld) 64.7 % 43.0-75.0 [facility] No Panel Informationon 12-14 Eosinophils # (Auto) 0.2 10 3/uL 0.0-0.7 [facility] Immature Granulocyte # (Auto) 0.01 10 3/uL 0.00-0.03 [facility] Office Visiton 12-15-2023 Follow-up visit [id number] Angelo Brewster 1950 F Date Provider Department Center 12/15/2023 [id number] AJ C[facility] Family History Problem Relation Age of Onset Coronary artery disease Mother Coronary artery disease Father Alzheimer's disease Father Family Status - Relation Status Age at Mother Father Level of Service:54648 [facility] OFFICE/OUTPATIENT ESTABLISHED MOD MDM 30 MIN Normal [facility] Platelet mean volume Auto (B ld) [Entitic vol]on 12-15-2023 Platelet mean volume (Bld) [Entitic vol] 10.1 fL 9.5-13.5 [facility] Platelets Auto (Bld) [#/Vol] on 12-15-2023 Platelets (Bld) [#/Vol] 275 10 3/uL 150-450 [facility] RBC Auto (Bld) [#/Vol]on RBC (Bld) [#/Vol] 3.76 10 6/uL 4.20-5.[address] [facility] Serum or plasma albumin/glob ulin mass ratioon 12-15-2023 Albumin/Globulin [Mass ratio] 1.1 {ratio} [facility] Serum or plasma anion gap de terminationon 12-15-2023 Anion gap [Moles/Vol] 13.7 mmol/L [facility] Basophils Auto (Bld) [#/Vol] on 12-07-2023 Basophils (Bld) [#/Vol] 0.1 10 3/uL 0.0-0.1 [facility] Basophils/100 WBC Auto (Bld) on 12-07-2023 Basophils/100 WBC (Bld) 0.7 % 0.2-2.0 [facility] Cholesterol in LDL Calc [Mas s/Vol]on 12-07-2023 Cholesterol in LDL [Mass/Vol] 54.0 mg/dL [facility] Comment on above: <100 mg/dl [id number] 0-129 mg/dl NEAR OR ABOVE [id number] mg/dl BORDERLINE [id number] mg/dl HIGH>190 mg/dl VERY HIGH Cholesterol in VLDL Calc [Ma ss/Vol]on 12-07-2023 Cholesterol in VLDL [Mass/Vol] 38.0 mg/dL [facility] Eosinophils/100 WBC Auto (Bl d)on 12-07-2023 Eosinophils/100 WBC (Bld) 2.6 % 0.9-7.0 [facility] Erythrocyte distribution wid th Auto (RBC) [Ratio]on 12-07-2023 Erythrocyte distribution width (RBC) [Ratio] 12.9 % 11.0-15.0 [facility] Estimated glomerular filtrat ion rate (GFR) non- Americanon 12-07-2023 GFR/1.73 sq M.predicted among non-blacks MDRD (S/P/Bld) [Vol rate/Area] mL/min/{1.73_m2} >=60 [facility] Globulin Calc (S) [Mass/Vol] on 12-07-2023 Globulin (S) [Mass/Vol] 3.5 g/dL [facility] Glucose mean value [Mass/vol ume] in Blood Estimated from glycated hemoglobinon 12-07-2023 Average glucose Estimated from glycated hemoglobin (Bld) [Mass/Vol] 111 mg/dL [facility] Hematocrit Auto (Bld) [Volum e fraction]on 12-07-2023 Hematocrit (Bld) [Volume fraction] 37.5 % 36.0-48.0 [facility] Hemoglobin [Mass/volume] in Bloodon 12-07-2023 Hemoglobin (Bld) [Mass/Vol] 12.2 g/dL 12.0-16.0 [facility] Laboratory - Chemistry and C hemistry - challengeon 12-07-2023 Albumin [Mass/Vol] 3.8 g/dL 3.4-5.[address] [facility] ALP [Catalytic activity/Vol] 63 U/L 46-116 [facility] ALT [Catalytic activity/Vol] 22 U/L 14-59 [facility] AST [Catalytic activity/Vol] 15 U/L 15-37 [facility] Bilirubin [Mass/Vol] 0.4 mg/dL 0.2-1.0 [facility] Calcium [Mass/Vol] 9.0 mg/dL 8.5-10.[address] [facility] Chloride [Moles/Vol] 104 mmol/L 98-107 [facility] Cholesterol [Mass/Vol] 152 mg/dL <=200 [facility] Cholesterol in HDL [Mass/Vol] 60 mg/dL 40-60 [facility] Comment on above: > or =60 mg/dl - LOW CARDIOVASCULAR RISK<40 mg/dl - HIGH CARDIOVASCULAR RISK CO2 [Moles/Vol] 29.2 mmol/L 21.0-32.0 [facility] Creatinine [Mass/Vol] 0.75 mg/dL 0.55-1.02 [facility] GFR/1.73 sq M.predicted MDRD (S/P/Bld) [Vol rate/Area] mL/min/{1.73_m2} >=60 [facility] Glucose [Mass/Vol] 88 mg/dL 74-[address] [facility] Potassium [Moles/Vol] 4.2 mmol/L 3.5-5.1 [facility] Protein [Mass/Vol] 7.3 g/dL 6.4-8.[address] [facility] Sodium [Moles/Vol] 143 mmol/L 136-[address] [facility] Triglyceride [Mass/Vol] 190 mg/dL <=150 [facility] TSH Qn 1.222 m[IU]/L 0.358-3.740 [facility] Urea nitrogen [Mass/Vol] 15.0 mg/dL 7.0-18.0 [facility] [facility] Urea nitrogen/Creatinine [Mass ratio] 20.0 mg/mg [facility] - Hematology and Cell countson 12-07-2023 HbA1c (Bld) [Mass fraction] 5.5 % 4.5-6.2 [facility] Comment on above: ADA RECOMMENDED LIMI T 4.0 - 6.0ADA THERAPEUTIC TARGET < 7.0ACTION SUGGESTED> 7.0 Immature granulocytes/100 WBC (Bld) 0.1 % 0.0-0.5 [facility] Leukocytes [#/volume] correc andrew for nucleated erythrocytes in Blood by Automated counon 12-07-2023 WBC corrected for nucl RBC Auto (Bld) [#/Vol] 8.4 10 3/uL 4.0-11.0 [facility] Lymphocytes Auto (Bld) [#/Vo l]on 12-07-2023 Lymphocytes (Bld) [#/Vol] 1.4 10 3/uL 1.2-3.8 [facility] Lymphocytes/100 WBC Auto (Bl d)on 12-07-2023 Lymphocytes/100 WBC (Bld) 16.6 % 20.5-60.0 [facility] MCH Auto (RBC) [Entitic mass ]on 12-07-2023 MCH (RBC) [Entitic mass] 31.9 pg 26.7-34.0 [facility] MCHC Auto (RBC) [Mass/Vol]on 12-07-2023 MCHC (RBC) [Mass/Vol] 32.5 g/dL 29.9-35.2 [facility] MCV Auto (RBC) [Entitic vol] on 12-07-2023 MCV (RBC) [Entitic vol] 97.9 fL 81.0-99.0 [facility] Monocytes Auto (Bld) [#/Vol] on 12-07-2023 Monocytes (Bld) [#/Vol] 0.6 10 3/uL 0.3-0.8 [facility] Monocytes/100 WBC Auto (Bld) on 12-07-2023 Monocytes/100 WBC (Bld) 7.5 % 1.7-12.0 [facility] Neutrophils Auto (Bld) [#/Vo l]on 12-07-2023 Neutrophils (Bld) [#/Vol] 6.1 10 3/uL 1.4-6.5 [facility] Neutrophils/100 WBC Auto (Bl d)on 12-07-2023 Neutrophils/100 WBC (Bld) 72.5 % 43.0-75.0 [facility] No Panel Informationon 12-06 Eosinophils # (Auto) 0.2 10 3/uL 0.0-0.7 [facility] Immature Granulocyte # (Auto) 0.01 10 3/uL 0.00-0.03 [facility] Platelet mean volume Auto (B ld) [Entitic vol]on 12-07-2023 Platelet mean volume (Bld) [Entitic vol] 9.9 fL 9.5-13.5 [facility] Platelets Auto (Bld) [#/Vol] on 12-07-2023 Platelets (Bld) [#/Vol] 279 10 3/uL 150-450 [facility] RBC Auto (Bld) [#/Vol]on RBC (Bld) [#/Vol] 3.83 10 6/uL 4.20-5.[address] [facility] Serum or plasma albumin/glob ulin mass ratioon 12-07-2023 Albumin/Globulin [Mass ratio] 1.1 {ratio} [facility] Serum or plasma anion gap de terminationon 12-07-2023 Anion gap [Moles/Vol] 14.0 mmol/[facility] or plasma total choles terol/high density lipoprotein (HDL) cholesterol mass darian 12-07-2023 Cholesterol.total/Cho lesterol in HDL [Mass ratio] 2.5 {ratio} [facility] Comment on above: 3.3 - 4.4 LOW RISK4. 4 - 7.1 AVERAGE RISK7.1 - 11.0 MODERATE RISK>11.0 HIGH RISK Basophils Auto (Bld) [#/Vol] on 11-26-2023 Basophils (Bld) [#/Vol] 0.1 10 3/uL 0.0-0.1 [facility] Basophils/100 WBC Auto (Bld) on 11-26-2023 Basophils/100 WBC (Bld) 1.1 % 0.2-2.0 [facility] Eosinophils/100 WBC Auto (Bl d)on 11-26-2023 Eosinophils/100 WBC (Bld) 2.2 % 0.9-7.0 [facility] Erythrocyte distribution wid th Auto (RBC) [Ratio]on 11-26-2023 Erythrocyte distribution width (RBC) [Ratio] 12.7 % 11.0-15.0 [facility] Hematocrit Auto (Bld) [Volum e fraction]on 11-26-2023 Hematocrit (Bld) [Volume fraction] 36.1 % 36.0-48.0 [facility] Hemoglobin [Mass/volume] in Bloodon 11-26-2023 Hemoglobin (Bld) [Mass/Vol] 11.4 g/dL 12.0-16.0 [facility] Iron binding capacity [Mass/ volume] in Serum or Plasmaon 11-26-2023 Iron binding capacity [Mass/Vol] 295.0 ug/dL 250.0-450.0 [facility] Iron saturation [Mass Fracti on] in Serum or Plasmaon 11-26-2023 Iron saturation [Mass fraction] 40.3 % [facility] - Chemistry and C hemistry - challengeon 11-26-2023 Cobalamin (Vitamin B12) [Mass/Vol] 161.0 pg/mL 193.0-986.0 [facility] Ferritin [Mass/Vol] 41.0 ng/mL 8.0-252.[address] [facility] Iron [Mass/Vol] 119.0 ug/dL 50.0-170.0 [facility] - Hematology and Cell countson 11-26-2023 Immature granulocytes/100 WBC (Bld) 0.2 % 0.0-0.5 [facility] Leukocytes [#/volume] correc andrew for nucleated erythrocytes in Blood by Automated counon 11-26-2023 WBC corrected for nucl RBC Auto (Bld) [#/Vol] 6.4 10 3/uL 4.0-11.0 [facility] Lymphocytes Auto (Bld) [#/Vo l]on 11-26-2023 Lymphocytes (Bld) [#/Vol] 1.4 10 3/uL 1.2-3.8 [facility] Lymphocytes/100 WBC Auto (Bl d)on 11-26-2023 Lymphocytes/100 WBC (Bld) 21.6 % 20.5-60.0 [facility] MCH Auto (RBC) [Entitic mass ]on 11-26-2023 MCH (RBC) [Entitic mass] 31.1 pg 26.7-34.0 [facility] MCHC Auto (RBC) [Mass/Vol]on 11-26-2023 MCHC (RBC) [Mass/Vol] 31.6 g/dL 29.9-35.2 [facility] MCV Auto (RBC) [Entitic vol] on 11-26-2023 MCV (RBC) [Entitic vol] 98.6 fL 81.0-99.0 [facility] Monocytes Auto (Bld) [#/Vol] on 11-26-2023 Monocytes (Bld) [#/Vol] 0.6 10 3/uL 0.3-0.8 [facility] Monocytes/100 WBC Auto (Bld) on 11-26-2023 Monocytes/100 WBC (Bld) 9.8 % 1.7-12.0 [facility] Neutrophils Auto (Bld) [#/Vo l]on 11-26-2023 Neutrophils (Bld) [#/Vol] 4.2 10 3/uL 1.4-6.5 [facility] Neutrophils/100 WBC Auto (Bl d)on 11-26-2023 Neutrophils/100 WBC (Bld) 65.1 % 43.0-75.0 [facility] No Panel Informationon 11-25 Eosinophils # (Auto) 0.1 10 3/uL 0.0-0.7 [facility] Folate 17.80 ng/mL 8.60-58.90 [facility] Immature Granulocyte # (Auto) 0.01 10 3/uL 0.00-0.03 [facility] Platelet mean volume Auto (B ld) [Entitic vol]on 11-26-2023 Platelet mean volume (Bld) [Entitic vol] 9.7 fL 9.5-13.5 [facility] Platelets Auto (Bld) [#/Vol] on 11-26-2023 Platelets (Bld) [#/Vol] 268 10 3/uL 150-450 [facility] RBC Auto (Bld) [#/Vol]on RBC (Bld) [#/Vol] 3.66 10 6/uL 4.20-5.[address] [facility] CBC AUTO DIFFon 11-24-2022 BASO # 0.0 103/ul Normal 0.0-0.1 [facility] Comment on above: Performed By: #### H FPFCBC #### [facility] [address] [place] [address] Dr. Rigo Julio Basophils/100 WBC (Bld) 0.6 % Normal 0.2-2.0 [facility] Comment on above: Performed By: #### H FPFCBC #### [facility] [address] [address] [address] Rigo Julio EO # 0.1 103/ul Normal 0.0-0.7 [facility] Comment on above: Performed By: #### H FPFCBC #### [facility] [address] [place] [address] Dr. Rigo Julio Eosinophils/100 WBC (Bld) 1.4 % Normal 0.9-7.0 [facility] Comment on above: Performed By: #### H FPFCBC #### [facility] [address] [place] [address] Dr. Rigo Julio Erythrocyte distribution width (RBC) [Ratio] 12.8 % Normal 11.0-15.0 [facility] Comment on above: Performed By: #### H FPFCBC #### [facility] [address] [place] [address] Dr. Rigo Julio Hematocrit (Bld) [Volume fraction] 37.5 % Normal 36.0-48.0 [facility] Comment on above: Performed By: #### H FPFCBC #### [facility] [address] [place] [address] Dr. Rigo Julio Hemoglobin (Bld) [Mass/Vol] 12.3 g/dL Normal 12.0-16.0 [facility] Comment on above: Performed By: #### H FPFCBC #### [facility] [address] [place] [address] Dr. Rigo Julio IG # 0.02 10e3/ul Normal 0.00-0.03 [facility] Comment on above: Performed By: #### H FPFCBC #### [facility] [address] [place] [address] Dr. Rigo Julio IG % 0.3 % Normal 0.0-0.5 [facility] Comment on above: Performed By: #### H FPFCBC #### [facility] [address] [place] [address] Dr. Rigo Julio LYMPH # 1.3 103/ul Normal 1.2-3.8 [facility] Comment on above: Performed By: #### H FPFCBC #### [facility] [address] [place] [address] Dr. Rigo Julio Lymphocytes/100 WBC (Bld) 20.1 % Critically low 20.5-60.0 [facility] Comment on above: Performed By: #### H FPFCBC #### [facility] [address] [place] [address] Dr. Rigo Julio MCH (RBC) [Entitic mass] 31.4 pg Normal 26.7-34.0 [facility] Comment on above: Performed By: #### H FPFCBC #### [facility] [address] [place] [address] Dr. Rigo Julio MCHC (RBC) [Mass/Vol] 32.8 g/dL Normal 29.9-35.2 [facility] Comment on above: Performed By: #### H FPFCBC #### [facility] [address] [place] [address] Dr. Rigo Julio MCV (RBC) [Entitic vol] 95.7 fL Normal 81.0-99.0 [facility] Comment on above: Performed By: #### H FPFCBC #### [facility] [address] [place] [address] Dr. Rigo Julio MONO # 0.5 103/ul Normal 0.3-0.8 [facility] Comment on above: Performed By: #### H FPFCBC #### [facility] [address] [place] [address] Dr. Rigo Julio Monocytes/100 WBC (Bld) 7.3 % Normal 1.7-12.0 [facility] Comment on above: Performed By: #### H FPFCBC #### [facility] [address] [place] [address] Dr. Rigo Julio NEUT # 4.6 103/ul Normal 1.4-6.5 [facility] Comment on above: Performed By: #### H FPFCBC #### [facility] [address] [place] [address] Dr. Rigo Julio Neutrophils/100 WBC (Bld) 70.3 % Normal 43.0-75.0 [facility] Comment on above: Performed By: #### H FPFCBC #### [facility] [address] [address] [address] Rigo Julio Platelet mean volume (Bld) [Entitic vol] 9.6 fL Normal 9.5-13.5 [facility] Comment on above: Performed By: #### H FPFCBC #### [facility] [address] [address] [address] Rigo Julio PLT 272 103/ul Normal 150-450 [facility] Comment on above: Performed By: #### H FPFCBC #### [facility] [address] [address] [address] Rigo Julio RBC 3.92 106/ul Critically low 4.20-5.40 [facility] Comment on above: Performed By: #### H FPFCBC #### [facility] [address] [address] [address] Rigo Julio WBC 6.5 103/ul Normal 4.0-11.0 [facility] Comment on above: Performed By: #### H FPFCBC #### [facility] [address] [address] [address] Rigo Julio [facility] GLYCOHEMOGLOBIN A1Con 11-24-2022 Glucose [Mass/Vol] 114 mg/dL Normal [facility] Comment on above: Performed By: #### H FPFA1C #### [facility] [address] [place] [address] Dr. Rigo Julio HbA1c (Bld) [Mass fraction] 5.6 % Normal 4.5-6.2 [facility] Comment on above: Performed By: #### H FPFA1C #### [facility] [address] [address] [address] [facility] Albumin [Mass/Vol] 4.2 g/dL Normal 3.4-5.0 [facility] Comment on above: Performed By: #### H FPF #### [facility] [address] [place] [address] Dr. Rigo Julio Albumin/Globulin [Mass ratio] 1.2 {ratio} Normal [facility] Comment on above: Performed By: #### H FPF #### [facility] [address] [address] [address] Rigo Julio ALP [Catalytic activity/Vol] 76 U/L Normal 46-116 [facility] Comment on above: Performed By: #### H FPF #### [facility] [address] [address] [address] Rigo Julio ALT [Catalytic activity/Vol] 23 U/L Normal 14-59 [facility] Comment on above: Performed By: #### H FPF #### [facility] [address] [address] [address] Rigo Juloi AST [Catalytic activity/Vol] 19 U/L Normal 15-37 [facility] Comment on above: Performed By: #### H FPF #### [facility] [address] [address] [address] Rigo Julio Bilirubin [Mass/Vol] 0.4 mg/dL Normal 0.2-1.0 [facility] Comment on above: Performed By: #### H FPF #### [facility] [address] [address] [address] Rigo Julio Calcium [Mass/Vol] 9.2 mg/dL Normal 8.5-10.1 [facility] Comment on above: Performed By: #### H FPF #### [facility] [address] [place] [address] Dr. Rigo Julio Chloride [Moles/Vol] 105 mmol/L Normal 98-107 [facility] Comment on above: Performed By: #### H FPF #### [facility] [address] [address] [address] Rigo Julio CHOL-HDL RATIO NORM SEE BELOW Normal [facility] Comment on above: Result Comment: 3.3 - 4.4 LOW RISK 4.4 - 7.1 AVERAGE RISK 7.1 - 11.0 MODERATE RISK >11.0 HIGH RISK Performed By: #### H FPF #### [facility] [address] [address] [address] Rigo Julio Cholesterol [Mass/Vol] 158 mg/dL Normal <=200 [facility] Comment on above: Performed By: #### H FPF #### [facility] [address] [address] [address] Rigo Julio Cholesterol in HDL [Mass/Vol] 59 mg/dL Normal 40-60 [facility] Comment on above: Performed By: #### H FPF #### [facility] [address] [address] [address] Rigo Julio Cholesterol in LDL [Mass/Vol] 69.0 mg/dL Normal [facility] Comment on above: Performed By: #### H FPF #### [facility] [address] [address] [address] Rigo Julio Cholesterol.total/Cho lesterol in HDL [Mass ratio] 2.7 {ratio} Normal [facility] Comment on above: Performed By: #### H FPF #### [facility] [address] [address] [address] Rigo Julio CO2 [Moles/Vol] 30.2 mmol/L Normal 21.0-32.0 [facility] Comment on above: Performed By: #### H FPF #### [facility] [address] [address] [address] Rigo Julio Creatinine [Mass/Vol] 0.79 mg/dL Normal 0.55-1.02 [facility] Comment on above: Performed By: #### H FPF #### [facility] [address] [address] [address] Rigo Julio Globulin (S) [Mass/Vol] 3.6 g/dL Normal [facility] Comment on above: Performed By: #### H FPF #### [facility] [address] [address] [address] Rigo Julio Glucose [Mass/Vol] 99 mg/dL Normal 74-106 [facility] Comment on above: Performed By: #### H FPF #### [facility] [address] [address] [address] Rigo Julio HDL NORMAL > or = 60 mg/dl - LO W CARDIOVASCULAR RISK <40 mg/dl - HIGH CARDIOVASCULAR RISK Normal [facility] Comment on above: Performed By: #### H FPF #### [facility] [address] [address] [address] Rigo Julio LDL CALC NORMAL SEE BELOW Normal [facility] Comment on above: Result Comment: <100 mg/dl OPTIMAL 100 - 129 mg/dl NEAR OR ABOVE OPTIMAL 130 - 159 mg/dl BORDERLINE HIGH 160 - 189 mg/dl HIGH >190 mg/dl VERY HIGH Performed By: #### H FPF #### [facility] [address] [address] [address] Rigo Julio Potassium [Moles/Vol] 4.8 mmol/L Normal 3.5-5.1 [facility] Comment on above: Performed By: #### H FPF #### [facility] [address] [address] [address] Rigo Julio Protein [Mass/Vol] 7.8 g/dL Normal 6.4-8.2 [facility] Comment on above: Performed By: #### H FPF #### [facility] [address] [address] [address] Rigo Julio Sodium [Moles/Vol] 143 mmol/L Normal 136-145 [facility] Comment on above: Performed By: #### H FPF #### [facility] [address] [address] [address] Rigo Julio Triglyceride [Mass/Vol] 150 mg/dL Normal <=150 [facility] Comment on above: Performed By: #### H FPF #### [facility] [address] [address] [address] Rigo Julio TSH 1.255 uIU/mL Normal 0.358-3.740 [facility] Comment on above: Performed By: #### H FPF #### [facility] [address] [address] [address] Rigo Julio Urea nitrogen [Mass/Vol] 11.0 mg/dL Normal 7.0-18.0 [facility] Comment on above: Performed By: #### H FPF #### [facility] [address] [address] [address] Rigo Julio Urea nitrogen/Creatinine [Mass ratio] 13.9 mg/mg Normal [facility] Comment on above: Performed By: #### H FPF #### [facility] [address] [address] [address] Rigo Julio VLDL CALC 30.0 mg/dL Normal [facility] Comment on above: Performed By: #### H FPF #### [facility] [address] [address] [address] Rigo Julio LIPID PROFILEon 10-06-2022 CHOL-HDL RATIO NORM SEE BELOW Normal [facility] Comment on above: Result Comment: 3.3 - 4.4 LOW RISK 4.4 - 7.1 AVERAGE RISK 7.1 - 11.0 MODERATE RISK >11.0 HIGH RISK Performed By: #### L IPID, CMP #### [facility] [address] [address] [address] Rigo Julio Cholesterol [Mass/Vol] 131 mg/dL Normal <=200 [facility] Comment on above: Performed By: #### L IPID, CMP #### [facility] [address] [address] [address] Rigo Julio Cholesterol in HDL [Mass/Vol] 56 mg/dL Normal 40-60 [facility] Comment on above: Performed By: #### L IPID, CMP #### [facility] [address] [address] [address] Rigo Jluio Cholesterol in LDL [Mass/Vol] 43.8 mg/dL Normal [facility] Comment on above: Performed By: #### L IPID, CMP #### [facility] [address] [address] [address] Rigo Julio Cholesterol.total/Cho lesterol in HDL [Mass ratio] 2.3 {ratio} Normal [facility] Comment on above: Performed By: #### L IPID, CMP #### [facility] [address] [address] [address] Rigo Julio HDL NORMAL > or = 60 mg/dl - LO W CARDIOVASCULAR RISK <40 mg/dl - HIGH CARDIOVASCULAR RISK Normal [facility] Comment on above: Performed By: #### L IPID, CMP #### [facility] [address] [address] [address] Rigo Julio LDL CALC NORMAL SEE BELOW Normal [facility] Comment on above: Result Comment: <100 mg/dl OPTIMAL 100 - 129 mg/dl NEAR OR ABOVE OPTIMAL 130 - 159 mg/dl BORDERLINE HIGH 160 - 189 mg/dl HIGH >190 mg/dl VERY HIGH Performed By: #### L IPID, CMP #### [facility] [address] [address] [address] Rigo Julio Triglyceride [Mass/Vol] 156 mg/dL Critically high <=150 [facility] Comment on above: Performed By: #### L IPID, CMP #### [facility] [address] [address] [address] Rigo Julio VLDL CALC 31.2 mg/dL Normal [facility] Comment on above: Performed By: #### L IPID, CMP #### [facility] [address] [address] [address] Rigo Julio PROF 14(COMP METB)on 023 Albumin [Mass/Vol] 3.7 g/dL Normal 3.4-5.0 [facility] Comment on above: Performed By: #### L IPID, CMP #### [facility] [address] [address] [address] Rigo Julio Albumin/Globulin [Mass ratio] 1.1 {ratio} Normal [facility] Comment on above: Performed By: #### L IPID, CMP #### [facility] [address] [address] [address] Rigo Julio ALP [Catalytic activity/Vol] 80 U/L Normal 46-116 [facility] Comment on above: Performed By: #### L IPID, CMP #### [facility] [address] [address] [address] Rigo Julio ALT [Catalytic activity/Vol] 16 U/L Normal 14-59 [facility] Comment on above: Performed By: #### L IPID, CMP #### [facility] [address] [address] [address] Rigo Julio Anion gap [Moles/Vol] 11.7 mmol/L Normal [facility] Comment on above: Performed By: #### L IPID, CMP #### [facility] [address] [address] [address] Rigo Julio AST [Catalytic activity/Vol] 16 U/L Normal 15-37 [facility] Comment on above: Performed By: #### L IPID, CMP #### [facility] [address] [address] [address] Rigo Julio Bilirubin [Mass/Vol] 0.3 mg/dL Normal 0.2-1.0 [facility] Comment on above: Performed By: #### L IPID, CMP #### [facility] [address] [place] [address] Dr. Rigo Julio Calcium [Mass/Vol] 9.3 mg/dL Normal 8.5-10.1 [facility] Comment on above: Performed By: #### L IPID, CMP #### [facility] [address] [address] [address] Rigo Julio Chloride [Moles/Vol] 104 mmol/L Normal 98-107 [facility] Comment on above: Performed By: #### L IPID, CMP #### [facility] [address] [address] [address] Rigo Julio CO2 [Moles/Vol] 30.1 mmol/L Normal 21.0-32.0 [facility] [place] Comment on above: Performed By: #### L IPID, CMP #### [facility] [address] [address] [address] Rigo Julio Creatinine [Mass/Vol] 0.74 mg/dL Normal 0.55-1.02 [facility] Comment on above: Performed By: #### L IPID, CMP #### [facility] [address] [address] [address] Rigo Julio EGFR-AF ALBANIAN >60 Normal >=60 [facility] Comment on above: Performed By: #### L IPID, CMP #### [facility] [address] [address] [address] Rigo Julio EGFR-NON AF ALBANIAN >60 Normal >=60 [facility] Comment on above: Performed By: #### L IPID, CMP #### [facility] [address] [address] [address] Rigo Julio Globulin (S) [Mass/Vol] 3.5 g/dL Normal [facility] Comment on above: Performed By: #### L IPID, CMP #### [facility] [address] [address] [address] Rigo Julio Glucose [Mass/Vol] 105 mg/dL Normal 74-106 [facility] Comment on above: Performed By: #### L IPID, CMP #### [facility] [address] [place] [address] Dr. Rigo Julio Potassium [Moles/Vol] 4.8 mmol/L Normal 3.5-5.1 [facility] Comment on above: Performed By: #### L IPID, CMP #### [facility] [address] [address] [address] Rigo Julio Protein [Mass/Vol] 7.2 g/dL Normal 6.4-8.2 [facility] Comment on above: Performed By: #### L IPID, CMP #### [facility] [address] [place] [address] Dr. Rigo Julio Sodium [Moles/Vol] 141 mmol/L Normal 136-145 [facility] Comment on above: Performed By: #### L IPID, CMP #### [facility] [address] [address] [address] Rigo Julio Urea nitrogen [Mass/Vol] 13.0 mg/dL Normal 7.0-18.0 [facility] Comment on above: Performed By: #### L IPID, CMP #### [facility] [address] [address] [address] Rigo Julio Urea nitrogen/Creatinine [Mass ratio] 17.6 mg/mg Normal [facility] Comment on above: Performed By: #### L IPID, CMP #### [facility] [address] [address] [address] Rigo Julio LIPID PROFILEon 04-14-2022 CHOL-HDL RATIO NORM SEE BELOW Normal [facility] Comment on above: Result Comment: 3.3 - 4.4 LOW RISK 4.4 - 7.1 AVERAGE RISK 7.1 - 11.0 MODERATE RISK >11.0 HIGH RISK Performed By: #### L IPID, LIVER #### [facility] [address] [address] [address] Rigo Julio Cholesterol [Mass/Vol] 122 mg/dL Normal <=200 [facility] Comment on above: Performed By: #### L IPID, LIVER #### [facility] [address] [address] [address] Rigo Julio Cholesterol in HDL [Mass/Vol] 58 mg/dL Normal 40-60 [facility] Comment on above: Performed By: #### L IPID, LIVER #### [facility] [address] [address] [address] Rigo Julio Cholesterol in LDL [Mass/Vol] 33.4 mg/dL Normal [facility] Comment on above: Performed By: #### L IPID, LIVER #### [facility] [address] [address] [address] Rigo Julio Cholesterol.total/Cho lesterol in HDL [Mass ratio] 2.1 {ratio} Normal [facility] Comment on above: Performed By: #### L IPID, LIVER #### [facility] [address] [address] [address] Rigo Julio HDL NORMAL > or = 60 mg/dl - LO W CARDIOVASCULAR RISK <40 mg/dl - HIGH CARDIOVASCULAR RISK Normal [facility] Comment on above: Performed By: #### L IPID, LIVER #### [facility] [address] [address] [address] Rigo Julio LDL CALC NORMAL SEE BELOW Normal [facility] Comment on above: Result Comment: <100 mg/dl OPTIMAL 100 - 129 mg/dl NEAR OR ABOVE OPTIMAL 130 - 159 mg/dl BORDERLINE HIGH 160 - 189 mg/dl HIGH >190 mg/dl VERY HIGH Performed By: #### L IPID, LIVER #### [facility] [address] [address] [address] Rigo Julio Triglyceride [Mass/Vol] 153 mg/dL Critically high <=150 [facility] Comment on above: Performed By: #### L IPID, LIVER #### [facility] [address] [address] [address] Rigo Julio VLDL CALC 30.6 mg/dL Normal [facility] Comment on above: Performed By: #### L IPID, LIVER #### [facility] [address] [address] [address] Rigo Julio LIVER PROFILEon 04-14-2022 Albumin [Mass/Vol] 3.9 g/dL Normal 3.4-5.0 [facility] Comment on above: Performed By: #### L IPID, LIVER #### [facility] [address] [place] [address] Dr. Rigo Julio Albumin/Globulin [Mass ratio] 1.1 {ratio} Normal [facility] Comment on above: Performed By: #### L IPID, LIVER #### [facility] [address] [place] [address] Dr. Rigo Julio ALP [Catalytic activity/Vol] 76 U/L Normal 46-116 [facility] Comment on above: Performed By: #### L IPID, LIVER #### [facility] [address] [place] [address] Dr. Rigo Julio ALT [Catalytic activity/Vol] 21 U/L Normal 14-59 [facility] Comment on above: Performed By: #### L IPID, LIVER #### [facility] [address] [address] [address] Rigo Julio AST [Catalytic activity/Vol] 16 U/L Normal 15-37 [facility] Comment on above: Performed By: #### L IPID, LIVER #### [facility] [address] [place] [address] Dr. Rigo Julio BILI, CONJUGATED 0.1 mg/dL Normal 0.0-0.2 [facility] Comment on above: Performed By: #### L IPID, LIVER #### [facility] [address] [address] [address] Rigo Julio Bilirubin [Mass/Vol] 0.4 mg/dL Normal 0.2-1.0 [facility] Comment on above: Performed By: #### L IPID, LIVER #### [facility] [address] [address] [address] Rigo Julio Globulin (S) [Mass/Vol] 3.6 g/dL Normal [facility] Comment on above: Performed By: #### L IPID, LIVER #### [facility] [address] [address] [address] Rigo Julio Protein [Mass/Vol] 7.5 g/dL Normal 6.4-8.2 [facility] Comment on above: Performed By: #### L IPID, LIVER #### [facility] [address] [address] [address] Rigo Sy 03-10-2022 L - -------- Specimen: [id number] Received: 03/10/22 Status: CINDY Martin Num: [id number] Spec Type: Surgical Subm Dr: Travis Richter MD Tissues: A Esophagus Biopsy (ESOPHAGUS BX) Procedures: HE Stain/2, Gross/Micro L4 -------- Patient Age/Sex Location Account Attending Physician -------- Sj Brewster Mahi 71/F [id number] Travis Richter MD -------- SPEC NUM: [id number] RECD: 03/10/22 STATUS: CINDY MARTIN NUM: [id number] ALEE: 03/10/22 DR: Travis Richter MD ENTERED: 03/10/[address] [facility] [address]: MC TYPE: Surgical DEPT: S ORDERED: HE Stain/2, [...] support the above pathologic diagnosis CPT Codes 74102 -------- -------- Specimen: [id number] Received: 03/10/22 Status: CINDY Martin Num: [id number] Spec Type: Surgical Subm Dr: Travis Richter MD Tissues: A Esophagus Biopsy (ESOPHAGUS BX) Procedures: HE Stain/2, Gross/Micro L4 -------- Patient: Sj Brewster [id number] (Continued) -------- Signed (signature on file) Nadege Cardenas MD 03/11/22 1254 Normal [facility] SARS-CoV-2 (COVID-19) RNA EDA+probe Ql (Unsp spec) Negative Normal Negative [facility] Comment on above: Order Comment: Healt hcare Worker?: N Result Comment: Testing for SARS-CoV-2 by RT-PCR This test was developed and its performance characteristics determined by [employer] and validated at the [facility]. This test has not been FDA cleared [...] is terminated or revoked sooner. PERFORMED BY: [place] [address] PATHOLOGIST DELIVERY TABLE FEEDER SHARIF ARNOLD M.D. Performed By: #### C OVID 19 [facility] #### [address] PROF 14(COMP METB)on 022 Albumin [Mass/Vol] 3.7 g/dL Normal 3.4-5.0 [facility] Comment on above: Performed By: #### C MP #### [facility] [address] [place] [address] Dr. Rigo Julio Albumin/Globulin [Mass ratio] 1.0 {ratio} Normal [facility] Comment on above: Performed By: #### C MP #### [facility] [address] [place] [address] Dr. Rigo Julio ALP [Catalytic activity/Vol] 79 U/L Normal 46-116 [facility] Comment on above: Performed By: #### C MP #### [facility] [address] [place] [address] Dr. Rigo Julio ALT [Catalytic activity/Vol] 22 U/L Normal 14-59 [facility] Comment on above: Performed By: #### C MP #### [facility] [address] [place] [address] Dr. Rigo Julio Anion gap [Moles/Vol] 10.3 mmol/L Normal [facility] Comment on above: Performed By: #### C MP #### [facility] [address] [place] [address] Dr. Rigo Julio AST [Catalytic activity/Vol] 16 U/L Normal 15-37 [facility] Comment on above: Performed By: #### C MP #### [facility] [address] [place] [address] Dr. Rigo Julio Bilirubin [Mass/Vol] 0.3 mg/dL Normal 0.2-1.0 [facility] Comment on above: Performed By: #### C MP #### [facility] [address] [place] [address] Dr. Rigo Julio Calcium [Mass/Vol] 9.2 mg/dL Normal 8.5-10.1 [facility] Comment on above: Performed By: #### C MP #### [facility] [address] [place] [address] Dr. Rigo Julio Chloride [Moles/Vol] 104 mmol/L Normal 98-107 [facility] Comment on above: Performed By: #### C MP #### [facility] [address] [place] [address] Dr. Rigo Julio CO2 [Moles/Vol] 29.7 mmol/L Normal 21.0-32.0 [facility] Comment on above: Performed By: #### C MP #### [facility] [address] [place] [address] Dr. Rigo Julio Creatinine [Mass/Vol] 0.80 mg/dL Normal 0.55-1.02 [facility] Comment on above: Performed By: #### C MP #### [facility] [address] [place] [address] Dr. Rigo Julio EGFR-AF ALBANIAN >60 Normal >=60 [facility] Comment on above: Performed By: #### C MP #### [facility] [address] [place] [address] Dr. Rigo Julio EGFR-NON AF ALBANIAN >60 Normal >=60 [facility] Comment on above: Performed By: #### C MP #### [facility] [address] [address] [address] Rigo Julio Globulin (S) [Mass/Vol] 3.8 g/dL Normal [facility] Comment on above: Performed By: #### C MP #### [facility] [address] [address] [address] Rigo Julio Glucose [Mass/Vol] 93 mg/dL Normal 74-106 [facility] Comment on above: Performed By: #### C MP #### [facility] [address] [place] [address] Dr. Rigo Julio Potassium [Moles/Vol] 5.0 mmol/L Normal 3.5-5.1 [facility] Comment on above: Performed By: #### C MP #### [facility] [address] [place] [address] Dr. Rigo Julio Protein [Mass/Vol] 7.5 g/dL Normal 6.4-8.2 [facility] Comment on above: Performed By: #### C MP #### [facility] [address] [place] [address] Dr. Rigo Julio Sodium [Moles/Vol] 139 mmol/L Normal 136-145 [facility] Comment on above: Performed By: #### C MP #### [facility] [address] [place] [address] Dr. Rigo Julio Urea nitrogen [Mass/Vol] 11.0 mg/dL Normal 7.0-18.0 [facility] Comment on above: Performed By: #### C MP #### [facility] [address] [place] [address] Dr. Rigo Julio Urea nitrogen/Creatinine [Mass ratio] 13.8 mg/mg Normal [facility] Comment on above: Performed By: #### C MP #### [facility] [address] [place] [address] Dr. Rigo Julio [facility] CBC AUTO DIFFon 11-27-2021 BASO # 0.1 103/ul Normal 0.0-0.1 [facility] Comment on above: Performed By: #### H FPFCBC #### [facility] [address] [place] [address] Dr. Rigo Julio Basophils/100 WBC (Bld) 0.9 % Normal 0.2-2.0 [facility] Comment on above: Performed By: #### H FPFCBC #### [facility] [address] [place] [address] Dr. Rigo Julio EO # 0.2 103/ul Normal 0.0-0.7 [facility] Comment on above: Performed By: #### H FPFCBC #### [facility] [address] [place] [address] Dr. Rigo Julio Eosinophils/100 WBC (Bld) 2.7 % Normal 0.9-7.0 [facility] Comment on above: Performed By: #### H FPFCBC #### [facility] [address] [place] [address] Dr. Rigo Julio Erythrocyte distribution width (RBC) [Ratio] 13.5 % Normal 11.0-15.0 [facility] Comment on above: Performed By: #### H FPFCBC #### [facility] [address] [place] [address] Dr. Rigo Julio Hematocrit (Bld) [Volume fraction] 38.8 % Normal 36.0-48.0 [facility] Comment on above: Performed By: #### H FPFCBC #### [facility] [address] [place] [address] Dr. Rigo Julio Hemoglobin (Bld) [Mass/Vol] 12.6 g/dL Normal 12.0-16.0 [facility] Comment on above: Performed By: #### H FPFCBC #### [facility] [address] [place] [address] Dr. Rigo Julio IG # 0.02 10e3/ul Normal 0.00-0.03 [facility] Comment on above: Performed By: #### H FPFCBC #### [facility] [address] [place] [address] Dr. Rigo Julio IG % 0.4 % Normal 0.0-0.5 [facility] Comment on above: Performed By: #### H FPFCBC #### [facility] [address] [place] [address] Dr. Rigo Julio LYMPH # 1.3 103/ul Normal 1.2-3.8 [facility] Comment on above: Performed By: #### H FPFCBC #### [facility] [address] [place] [address] Dr. Rigo Julio Lymphocytes/100 WBC (Bld) 22.8 % Normal 20.5-60.0 [facility] Comment on above: Performed By: #### H FPFCBC #### [facility] [address] [place] [address] Dr. Rigo Julio MCH (RBC) [Entitic mass] 30.5 pg Normal 26.7-34.0 [facility] Comment on above: Performed By: #### H FPFCBC #### [facility] [address] [place] [address] Dr. Rigo Julio MCHC (RBC) [Mass/Vol] 32.5 g/dL Normal 29.9-35.2 [facility] Comment on above: Performed By: #### H FPFCBC #### [facility] [address] [place] [address] Dr. Rigo Julio MCV (RBC) [Entitic vol] 93.9 fL Normal 81.0-99.0 [facility] Comment on above: Performed By: #### H FPFCBC #### [facility] [address] [place] [address] Dr. Rigo Julio MONO # 0.4 103/ul Normal 0.3-0.8 [facility] Comment on above: Performed By: #### H FPFCBC #### [facility] [address] [place] [address] Dr. Rigo Julio Monocytes/100 WBC (Bld) 7.3 % Normal 1.7-12.0 [facility] Comment on above: Performed By: #### H FPFCBC #### [facility] [address] [place] [address] Dr. Rigo Julio NEUT # 3.6 103/ul Normal 1.4-6.5 [facility] Comment on above: Performed By: #### H FPFCBC #### [facility] [address] [address] [address] Rigo Julio Neutrophils/100 WBC (Bld) 65.9 % Normal 43.0-75.0 [facility] Comment on above: Performed By: #### H FPFCBC #### [facility] [address] [address] [address] Rigo Julio Platelet mean volume (Bld) [Entitic vol] 9.7 fL Normal 9.5-13.5 [facility] Comment on above: Performed By: #### H FPFCBC #### [facility] [address] [place] [address] Dr. Rigo Julio PLT 333 103/ul Normal 150-450 [facility] Comment on above: Performed By: #### H FPFCBC #### [facility] [address] [place] [address] Dr. Rigo Julio RBC 4.13 106/ul Critically low 4.20-5.40 [facility] Comment on above: Performed By: #### H FPFCBC #### [facility] [address] [place] [address] Dr. Rigo Julio WBC 5.5 103/ul Normal 4.0-11.0 [facility] Comment on above: Performed By: #### H FPFCBC #### [facility] [address] [address] [address] Rigo Julio [facility] GLYCOHEMOGLOBIN A1Con 11-27-2021 Glucose [Mass/Vol] 123 mg/dL Normal [facility] Comment on above: Performed By: #### H FPFA1C #### [facility] [address] [place] [address] Dr. Rigo Julio HbA1c (Bld) [Mass fraction] 5.9 % Normal <=6.0 [facility] Comment on above: Performed By: #### H FPFA1C #### [facility] [address] [place] [address] Dr. Rigo Julio [facility] PROFILEon 11-27- 022 Albumin [Mass/Vol] 4.2 g/dL Normal 3.5-5.0 [facility] Comment on above: Performed By: #### L IPID, CMP #### [facility] [address] [address] [address] Rigo Julio Albumin/Globulin [Mass ratio] 1.2 {ratio} Normal [facility] Comment on above: Performed By: #### L IPID, CMP #### [facility] [address] [address] [address] Rigo Julio ALP [Catalytic activity/Vol] 81 U/L Normal 38-126 [facility] Comment on above: Performed By: #### L IPID, CMP #### [facility] [address] [address] [address] Rigo Julio ALT [Catalytic activity/Vol] 23 U/L Normal 9-52 [facility] Comment on above: Performed By: #### L IPID, CMP #### [facility] [address] [address] [address] Rigo Julio AST [Catalytic activity/Vol] 18 U/L Normal 14-36 [facility] Comment on above: Performed By: #### L IPID, CMP #### [facility] [address] [address] [address] Rigo Julio Bilirubin [Mass/Vol] 0.3 mg/dL Normal 0.2-1.3 [facility] Comment on above: Performed By: #### L IPID, CMP #### [facility] [address] [address] [address] Rigo Julio Calcium [Mass/Vol] 9.2 mg/dL Normal 8.4-10.2 [facility] Comment on above: Performed By: #### L IPID, CMP #### [facility] [address] [address] [address] Rigo Julio Chloride [Moles/Vol] 102 mmol/L Normal 98-107 [facility] Comment on above: Performed By: #### L IPID, CMP #### [facility] [address] [address] [address] Rigo Julio CHOL-HDL RATIO NORM SEE BELOW Normal [facility] Comment on above: Result Comment: 3.3 - 4.4 LOW RISK 4.4 - 7.1 AVERAGE RISK 7.1 - 11.0 MODERATE RISK >11.0 HIGH RISK Performed By: #### L IPID, CMP #### [facility] [address] [address] [address] Rigo Julio Cholesterol [Mass/Vol] 220 mg/dL Critically high <=200 [facility] Comment on above: Performed By: #### L IPID, CMP #### [facility] [address] [address] [address] Rigo Julio Cholesterol in HDL [Mass/Vol] 54 mg/dL Normal [facility] Comment on above: Performed By: #### L IPID, CMP #### [facility] [address] [address] [address] Rigo Julio Cholesterol in LDL [Mass/Vol] 141.6 mg/dL Normal [facility] Comment on above: Performed By: #### L IPID, CMP #### [facility] [address] [address] [address] Rigo Julio Cholesterol.total/Cho lesterol in HDL [Mass ratio] 4.1 {ratio} Normal [facility] Comment on above: Performed By: #### L IPID, CMP #### [facility] [address] [address] [address] Rigo Julio CO2 [Moles/Vol] 28.4 mmol/L Normal 22.0-30.0 [facility] Comment on above: Performed By: #### L IPID, CMP #### [facility] [address] [address] [address] Rigo Julio Creatinine [Mass/Vol] 0.84 mg/dL Normal 0.52-1.04 [facility] Comment on above: Performed By: #### L IPID, CMP #### [facility] [address] [address] [address] Rigo Julio Globulin (S) [Mass/Vol] 3.6 g/dL Normal [facility] Comment on above: Performed By: #### L IPID, CMP #### [facility] [address] [address] [address] Rigo Julio Glucose [Mass/Vol] 103 mg/dL Normal 74-106 [facility] Comment on above: Performed By: #### L IPID, CMP #### [facility] [address] [address] [address] Rigo Julio HDL NORMAL > or = 60 mg/dl - LO W CARDIOVASCULAR RISK <40 mg/dl - HIGH CARDIOVASCULAR RISK Normal [facility] Comment on above: Performed By: #### L IPID, CMP #### [facility] [address] [address] [address] Rigo Julio LDL CALC NORMAL SEE BELOW Normal [facility] Comment on above: Result Comment: <100 mg/dl OPTIMAL 100 - 129 mg/dl NEAR OR ABOVE OPTIMAL 130 - 159 mg/dl BORDERLINE HIGH 160 - 189 mg/dl HIGH >190 mg/dl VERY HIGH Performed By: #### L IPID, CMP #### [facility] [address] [place] [address] Dr. Rigo Julio Potassium [Moles/Vol] 5.6 mmol/L Critically high 3.4-5.0 [facility] Comment on above: Performed By: #### L IPID, CMP #### [facility] [address] [address] [address] Rigo Julio Protein [Mass/Vol] 7.8 g/dL Normal 6.1-8.2 [facility] Comment on above: Performed By: #### L IPID, CMP #### [facility] [address] [address] [address] Rigo Julio Sodium [Moles/Vol] 138 mmol/L Normal 137-145 [facility] Comment on above: Performed By: #### L IPID, CMP #### [facility] [address] [place] [address] Dr. Rigo Julio Triglyceride [Mass/Vol] 122 mg/dL Normal <=150 [facility] Comment on above: Performed By: #### L IPID, CMP #### [facility] [address] [address] [address] Rigo Julio TSH 1.542 uIU/mL Normal 0.470-4.680 [facility] Comment on above: Performed By: #### L IPID, CMP #### [facility] [address] [address] [address] Rigo Julio Urea nitrogen [Mass/Vol] 10.0 mg/dL Normal 7.0-17.0 [facility] Comment on above: Performed By: #### L IPID, CMP #### [facility] [address] [address] [address] Rigo Julio Urea nitrogen/Creatinine [Mass ratio] 11.9 mg/mg Normal [facility] Comment on above: Performed By: #### L IPID, CMP #### [facility] [address] [address] [address] Rigo Julio VLDL CALC 24.4 mg/dL Normal [facility] Comment on above: Performed By: #### L IPID, CMP #### [facility] [address] [address] [address] Rigo Julio POC GLUCOSE LABon 04-06-2021 Glucose [Mass/Vol] 112 mg/dL High 70-100 [facility] Comment on above: Performed By: #### [id number] #### [facility] [address] Glucose [Mass/Vol] 109 mg/dL High 70-100 [facility] Comment on above: Performed By: #### [id number] #### [facility] [address] [place] [address], [facility] BASIC METABOLIC PANELon 03-20 Calcium [Mass/Vol] 8.3 mg/dL Low 8.6-10.3 [facility] Comment on above: Order Comment: No: D o not add to previous draw Performed By: #### [id number] #### [facility] [address] [place] [address], [place] Chloride [Moles/Vol] 96 mmol/L Low 98-107 [facility] Comment on above: Order Comment: No: D o not add to previous draw Performed By: #### [id number] #### [facility] [address] [place] [address], [place] CO2 [Moles/Vol] 29 mmol/L Normal 21-31 [facility] Comment on above: Order Comment: No: D o not add to previous draw Performed By: #### [id number] #### [facility] [address] [place] [address], [place] Creatinine [Mass/Vol] 0.60 mg/dL Normal 0.60-1.20 [facility] Comment on above: Order Comment: No: D o not add to previous draw Performed By: #### [id number] #### [facility] [address] [place] [address], [place] GFR/1.73 sq M.predicted among blacks MDRD (S/P/Bld) [Vol rate/Area] mL/min/{1.73_m2} Normal >60 [facility] Comment on above: Order Comment: No: D o not add to previous draw Performed By: #### [id number] #### [facility] [address] [place] [address], [place] GFR/1.73 sq M.predicted among non-blacks MDRD (S/P/Bld) [Vol rate/Area] mL/min/{1.73_m2} Normal >60 [facility] Comment on above: Order Comment: No: D o not add to previous draw Performed By: #### [id number] #### [facility] [address] [place] [address], [place] Glucose [Mass/Vol] 100 mg/dL Normal 70-100 [facility] Comment on above: Order Comment: No: D o not add to previous draw Performed By: #### [id number] #### [facility] [address] [place] [address], [place] Potassium [Moles/Vol] 4.2 mmol/L Normal 3.5-5.1 [facility] Comment on above: Order Comment: No: D o not add to previous draw Performed By: #### [id number] #### [facility] [address] [place] [address], [place] Sodium [Moles/Vol] 132 mmol/L Low 136-145 [facility] Comment on above: Order Comment: No: D o not add to previous draw Performed By: #### [id number] #### [facility] [address] [place] [address], [place] Urea nitrogen [Mass/Vol] 13 mg/dL Normal 7-25 [facility] Comment on above: Order Comment: No: D o not add to previous draw Performed By: #### [id number] #### [facility] [address] [place] [address], [place] CBC COMPLETE BLOOD COUNTon 0 - Erythrocyte distribution width (RBC) [Ratio] 14.6 % Normal 11.5-15.0 The [facility] Comment on above: Order Comment: No: D o not add to previous draw Performed By: #### 8 [id number] #### [facility] [address] [place] [address], [place] Hematocrit (Bld) [Volume fraction] 30.4 % Low 36.0-45.0 [facility] Comment on above: Order Comment: No: D o not add to previous draw Performed By: #### 8 [id number] #### [facility] [address] [place] [address], [place] Hemoglobin (Bld) [Mass/Vol] 10.2 g/dL Low 12.0-15.0 [facility] Comment on above: Order Comment: No: D o not add to previous draw Performed By: #### 8 [id number] #### [facility] [address] [place] [address], [facility] MCH (RBC) [Entitic mass] 30.5 pg Normal 27.0-33.0 [facility] Comment on above: Order Comment: No: D o not add to previous draw Performed By: #### 8 [id number] #### [facility] [address] [place] [id number], [facility] MCHC (RBC) [Mass/Vol] 33.6 g/dL Normal 32.0-35.0 [facility] Comment on above: Order Comment: No: D o not add to previous draw Performed By: #### 8 [id number] #### [facility] [address] [place] [id number], [facility] MCV (RBC) [Entitic vol] 91.0 fL Normal 82.0-98.0 [facility] Comment on above: Order Comment: No: D o not add to previous draw Performed By: #### 8 [id number] #### [facility] [address] [place] [address], [facility] Nucleated RBC/100 WBC (Bld) [Ratio] 0 % Normal 0-0 [facility] Comment on above: Order Comment: No: D o not add to previous draw Performed By: #### 8 [id number] #### [facility] [address] [place] [id number], [facility] PLAT CNT 124 10*3/uL Low 150-400 The [facility] Comment on above: Order Comment: No: D o not add to previous draw Performed By: #### 8 [id number] #### [facility] [address] [place] [address], [facility] RBC (Bld) [#/Vol] 3.34 10*6/uL Low 3.80-5.00 The [facility] Comment on above: Order Comment: No: D o not add to previous draw Performed By: #### 8 [id number] #### [facility] [address] [place] [address], [place] WBC (Bld) [#/Vol] 13.12 10*3/uL High 4.00-10.60 [facility] Comment on above: Order Comment: No: D o not add to previous draw Performed By: #### 8 [id number] #### [facility] [address] [place] [address], [place] MAGNESIUM BLOODon 04-05-2021 Magnesium [Mass/Vol] 1.8 mg/dL Low 1.9-2.7 [facility] Comment on above: Order Comment: No: D o not add to previous draw Performed By: #### 8 [id number] #### [facility] [address] [place] [address], [place] POC GLUCOSE LABon 04-05-2021 Glucose [Mass/Vol] 144 mg/dL High 70-100 [facility] Comment on above: Performed By: #### 3 1595 #### [facility] [address] [place] [address], [place] Glucose [Mass/Vol] 117 mg/dL High 70-100 [facility] Comment on above: Performed By: #### 5 0103 #### [facility] [address] [place] [address], [place] Glucose [Mass/Vol] 125 mg/dL High 70-100 [facility] Comment on above: Performed By: #### 5 0103 #### [facility] [address] [place] [address], [place] Glucose [Mass/Vol] 108 mg/dL High 70-100 [facility] Comment on above: Performed By: #### 5 0103 #### [facility] [address] [place] [address], [place] Glucose [Mass/Vol] 116 mg/dL High 70-100 [facility] Comment on above: Performed By: #### 5 0103 #### [address] PORTABLE CHEST 1 VIEWon 03-20 PORTABLE CHEST 1 VIEW [facility] Department of Radiology [address] [place] [address] Patient Name: SJ BREWSTER : 1950 Sex: F Age: Race: White Pt. Location: [place] [address] Patient Status: I Ordered Date: 04/05/2021 5:00:00 [...] therapy Electronically signed: Pam Ennis. Transcribed by: [email or web address], User Resident: Electronically Signed by: PAM ENNIS @ 04/05/2021 08:58 AM Normal [facility] Comment on above: Order Comment: evalu ate for Atelectasis BASIC METABOLIC PANELon 03-20 Calcium [Mass/Vol] 8.6 mg/dL Normal 8.6-10.3 [facility] Comment on above: Order Comment: No: D o not add to previous draw Performed By: #### 3 0965 #### [facility] [address] [place] [address], [facility] Chloride [Moles/Vol] 99 mmol/L Normal 98-107 [facility] Comment on above: Order Comment: No: D o not add to previous draw Performed By: #### 3 0965 #### [facility] [address] [place] [address], [place] CO2 [Moles/Vol] 25 mmol/L Normal 21-31 The [facility] Comment on above: Order Comment: No: D o not add to previous draw Performed By: #### 3 0965 #### [facility] [address] [place] [address], [place] Creatinine [Mass/Vol] 0.60 mg/dL Normal 0.60-1.20 [facility] Comment on above: Order Comment: No: D o not add to previous draw Performed By: #### 3 0965 #### [facility] [address] [place] [address], [place] GFR/1.73 sq M.predicted among blacks MDRD (S/P/Bld) [Vol rate/Area] mL/min/{1.73_m2} Normal >60 The [facility] Comment on above: Order Comment: No: D o not add to previous draw Performed By: #### 3 0965 #### [facility] [address] [place] [address], [facility] GFR/1.73 sq M.predicted among non-blacks MDRD (S/P/Bld) [Vol rate/Area] mL/min/{1.73_m2} Normal >60 The [facility] Comment on above: Order Comment: No: D o not add to previous draw Performed By: #### 3 0965 #### [facility] [address] [place] [address], [place] Glucose [Mass/Vol] 111 mg/dL High 70-100 [facility] Comment on above: Order Comment: No: D o not add to previous draw Performed By: #### 3 0965 #### [facility] [address] [place] [address], [place] Potassium [Moles/Vol] 4.0 mmol/L Normal 3.5-5.1 [facility] Comment on above: Order Comment: No: D o not add to previous draw Performed By: #### 3 0965 #### [facility] [address] [place] [address], [place] Sodium [Moles/Vol] 130 mmol/L Low 136-145 [facility] Comment on above: Order Comment: No: D o not add to previous draw Performed By: #### 3 0965 #### [facility] [address] [place] [address], [place] Urea nitrogen [Mass/Vol] 15 mg/dL Normal 7-25 [facility] Comment on above: Order Comment: No: D o not add to previous draw Performed By: #### 3 0965 #### [facility] [address] [place] [address], [place] CBC COMPLETE BLOOD COUNTon 0 7- Erythrocyte distribution width (RBC) [Ratio] 15.7 % High 11.5-15.0 [facility] Comment on above: Order Comment: No: D o not add to previous draw Performed By: #### 8 [id number] #### [facility] [address] [place] [address], [facility] Hematocrit (Bld) [Volume fraction] 30.1 % Low 36.0-45.0 [facility] Comment on above: Order Comment: No: D o not add to previous draw Performed By: #### 8 5499 #### [facility] [address] [place] [address], [facility] Hemoglobin (Bld) [Mass/Vol] 10.0 g/dL Low 12.0-15.0 [facility] Comment on above: Order Comment: No: D o not add to previous draw Performed By: #### 8 5499 #### [facility] [address] [place] [id number], [facility] IMM PLATELET FRAC 5.8 % Normal 0.8-6.3 The [facility] Comment on above: Order Comment: No: D o not add to previous draw Performed By: #### 8 5499 #### [facility] [address] [facility] [place] [id number], [facility] MCH (RBC) [Entitic mass] 29.9 pg Normal 27.0-33.0 [facility] Comment on above: Order Comment: No: D o not add to previous draw Performed By: #### 8 5499 #### [facility] [address] [place] [id number], [facility] MCHC (RBC) [Mass/Vol] 33.2 g/dL Normal 32.0-35.0 [facility] Comment on above: Order Comment: No: D o not add to previous draw Performed By: #### 8 5499 #### [facility] [address] [place] [address], [facility] MCV (RBC) [Entitic vol] 89.9 fL Normal 82.0-98.0 [facility] Comment on above: Order Comment: No: D o not add to previous draw Performed By: #### 8 5499 #### [facility] [address] [place] [address], [facility] Nucleated RBC/100 WBC (Bld) [Ratio] 0 % Normal 0-0 [facility] Comment on above: Order Comment: No: D o not add to previous draw Performed By: #### 8 5499 #### [facility] [address] [facility] [address], [facility] PLAT CNT 119 10*3/uL Low 150-400 The [facility] Comment on above: Order Comment: No: D o not add to previous draw Performed By: #### 8 5499 #### [facility] [address] [place] [address], [facility] RBC (Bld) [#/Vol] 3.35 10*6/uL Low 3.80-5.00 The [facility] Comment on above: Order Comment: No: D o not add to previous draw Performed By: #### 8 5499 #### [facility] [address] [facility] [place] [address], [facility] WBC (Bld) [#/Vol] 16.59 10*3/uL High 4.00-10.60 The [facility] Comment on above: Order Comment: No: D o not add to previous draw Performed By: #### 8 5499 #### [facility] [address] [facility] [place] [address], [facility] MAGNESIUM BLOODon 04-04-2021 Magnesium [Mass/Vol] 1.7 mg/dL Low 1.9-2.7 The [facility] Comment on above: Order Comment: No: D o not add to previous draw Performed By: #### 3 0965 #### [facility] [address] [place] [address], [facility] POC GLUCOSE LABon 04-04-2021 Glucose [Mass/Vol] 183 mg/dL High 70-100 [facility] Comment on above: Performed By: #### 8 5499 #### [facility] [address] [facility] [place] [address], [facility] Glucose [Mass/Vol] 132 mg/dL High 70-100 [facility] Comment on above: Performed By: #### 3 1595 #### [facility] [address] [facility] [place] [address], [place] Glucose [Mass/Vol] 104 mg/dL High 70-100 [facility] Comment on above: Performed By: #### 8 5499 #### [facility] [address] [facility] [place] [address], [place] Glucose [Mass/Vol] 121 mg/dL High 70-100 [facility] Comment on above: Performed By: #### 8 5499 #### [facility] [address] [facility] [place] [address], [facility] PORTABLE CHEST 1 VIEWon 03-20 PORTABLE CHEST 1 VIEW [facility] Department of Radiology [address] [place] [address] Patient Name: SJ BREWSTER : 1950 Sex: F Age: Race: White Pt. Location: [place] [address] Patient Status: I Ordered Date: 04/04/2021 5:00:00 [...] today. Electronically signed: Roney Vigil. Transcribed by: [email or web address], User Resident: Electronically Signed by: RONEY VIGIL @ 04/04/2021 06:56 AM Normal [facility] Comment on above: Order Comment: Atele ctasis APTTon 04-03-2021 aPTT Coag (Bld) [Time] 33.2 s Normal 25.0-35.0 [facility] Comment on above: Order Comment: [...] PURPOSE. Performed By: #### 8 [id number] #### [facility] [address] [place] [address], [facility] BASIC METABOLIC PANELon 03-20 Calcium [Mass/Vol] 8.5 mg/dL Low 8.6-10.3 [facility] Comment on above: Order Comment: Check Chest Tube Position, ON ARRIVAL TO CVU Performed By: #### 0 0071, [id number] ####[facility] [place] [address], [facility] Chloride [Moles/Vol] 107 mmol/L Normal 98-107 [facility] Comment on above: Order Comment: Check Chest Tube Position, ON ARRIVAL TO CVU Performed By: #### 0 0071, 00347 ####[facility] [place] [address], [place] CO2 [Moles/Vol] 26 mmol/L Normal 21-31 [facility] Comment on above: Order Comment: Check Chest Tube Position, ON ARRIVAL TO CVU Performed By: #### 0 0071, 15357 ####[facility] [place] [address], [facility] Creatinine [Mass/Vol] 0.56 mg/dL Low 0.60-1.20 The [facility] Comment on above: Order Comment: Check Chest Tube Position, ON ARRIVAL TO CVU Performed By: #### 0 0071, 60222 ####[facility] [place] [address], [place] GFR/1.73 sq M.predicted among blacks MDRD (S/P/Bld) [Vol rate/Area] mL/min/{1.73_m2} Normal >60 The [facility] Comment on above: Order Comment: Check Chest Tube Position, ON ARRIVAL TO CVU Performed By: #### 0 0071, 95700 ####[facility] [place] [address], [facility] GFR/1.73 sq M.predicted among non-blacks MDRD (S/P/Bld) [Vol rate/Area] mL/min/{1.73_m2} Normal >60 The [facility] Comment on above: Order Comment: Check Chest Tube Position, ON ARRIVAL TO CVU Performed By: #### 0 0071, 44791 ####[facility] [place] [address], [place] Glucose [Mass/Vol] 123 mg/dL High 70-100 The [facility] Comment on above: Order Comment: Check Chest Tube Position, ON ARRIVAL TO CVU Performed By: #### 0 0071, 13030 ####[facility] [place] [address], [facility] Potassium [Moles/Vol] 4.2 mmol/L Normal 3.5-5.1 [facility] Comment on above: Order Comment: Check Chest Tube Position, ON ARRIVAL TO CVU Performed By: #### 0 0071, 44746 ####[facility] [id number], [facility] Sodium [Moles/Vol] 137 mmol/L Normal 136-145 The [facility] Comment on above: Order Comment: Check Chest Tube Position, ON ARRIVAL TO CVU Performed By: #### 0 0071, 69354 ####[facility] [place] [address], [facility] Urea nitrogen [Mass/Vol] 12 mg/dL Normal 7-25 The [facility] Comment on above: Order Comment: Check Chest Tube Position, ON ARRIVAL TO CVU Performed By: #### 0 0071, 73497 ####[facility] [place] [address], [facility] CBC COMPLETE BLOOD COUNTon 0 - Erythrocyte distribution width (RBC) [Ratio] 16.4 % High 11.5-15.0 The [facility] Comment on above: Order Comment: post op day 1No: Do not add to previous draw Performed By: #### 8 3337 #### [facility] [address] [place] [id number], [facility] Hematocrit (Bld) [Volume fraction] 32.0 % Low 36.0-45.0 The [facility] Comment on above: Order Comment: post op day 1No: Do not add to previous draw Performed By: #### 8 7652 #### [facility] [address] Hemoglobin (Bld) [Mass/Vol] 11.0 g/dL Low 12.0-15.0 The [facility] Comment on above: Order Comment: post op day 1No: Do not add to previous draw Performed By: #### 8 5499 #### [facility] [address] [place] [id number], [facility] MCH (RBC) [Entitic mass] 30.0 pg Normal 27.0-33.0 The [facility] Comment on above: Order Comment: post op day 1No: Do not add to previous draw Performed By: #### 8 5499 #### [facility] [address] [place] [address], [facility] MCHC (RBC) [Mass/Vol] 34.4 g/dL Normal 32.0-35.0 [facility] Comment on above: Order Comment: post op day 1No: Do not add to previous draw Performed By: #### 8 5499 #### [facility] [address] [place] [address], [facility] MCV (RBC) [Entitic vol] 87.2 fL Normal 82.0-98.0 The [facility] Comment on above: Order Comment: post op day 1No: Do not add to previous draw Performed By: #### 8 5499 #### [facility] [address] [place] [address], [facility] Nucleated RBC/100 WBC (Bld) [Ratio] 0 % Normal 0-0 The [facility] Comment on above: Order Comment: post op day 1No: Do not add to previous draw Performed By: #### 8 5499 #### [facility] [address] [place] [address], [facility] PLAT CNT 125 10*3/uL Low 150-400 The [facility] Comment on above: Order Comment: post op day 1No: Do not add to previous draw Performed By: #### 8 5499 #### [facility] [address] [place] [id number], [facility] RBC (Bld) [#/Vol] 3.67 10*6/uL Low 3.80-5.00 [facility] Comment on above: Order Comment: post op day 1No: Do not add to previous draw Performed By: #### 8 5499 #### [facility] [address] [place] [id number], [facility] WBC (Bld) [#/Vol] 14.47 10*3/uL High 4.00-10.60 [facility] Comment on above: Order Comment: post op day 1No: Do not add to previous draw Performed By: #### 8 5499 #### [facility] [address] [place] [address], [facility] COOXIMETRYon 04-03-2021 COHB 2 % Normal [facility] Comment on above: Performed By: #### 3 0965 #### [facility] [address] [place] [address], [facility] METHB 1 % Normal [facility] Comment on above: Performed By: #### 3 0965 #### [facility] [address] [facility] [place] [address], [facility] Oxygen saturation in Blood 70.5 % Normal 65.0-75.0 The [facility] Comment on above: Performed By: #### 3 0965 #### [facility] [address] [place] [address], [facility] THB 11.0 g/dL Normal [facility] Comment on above: Performed By: #### 3 0965 #### [facility] [address] [facility] [place] [id number], [facility] LACTATE BLOODon 04-03-2021 Lactate [Moles/Vol] 0.9 mmol/L Normal 0.5-2.2 [facility] Comment on above: Order Comment: Check Chest Tube Position, ON ARRIVAL TO CVU Performed By: #### 1 0054 ####[facility] MAGNESIUM BLOODon 04-03-2021 Magnesium [Mass/Vol] 2.2 mg/dL Normal 1.9-2.7 The [facility] Comment on above: Order Comment: Check Chest Tube Position, ON ARRIVAL TO CVU Performed By: #### 0 0071, [id number] ####[facility] Operative Reporton Operative Report MR#: [id number] I [facility] Pt. Name: Sj Brewster Room #: NAYE [id number] Discharge Date: Birthdate: 1950 OPERATIVE REPORT DATE [...] harvesting of the left greater saphenous vein. SIDE PANEL PADDER: Ernestina. ANESTHESIA: General with endotracheal intubation. ANESTHESIOLOGIST: [...] and ascending aorta was cannulated with an 18-Egyptian Opti cannula using Seldinger technique. This was [...] to the posterior descending artery and a [id number] anastomosis was constructed in a cruciate fashion [...] content not included)... Normal [facility] POC GLUCOSE LABon 04-03-2021 Glucose [Mass/Vol] 133 mg/dL High 70-100 The [facility] Comment on above: Performed By: #### 3 1595 #### [facility] [address] [place] [address], [place] Glucose [Mass/Vol] 112 mg/dL High 70-100 [facility] Comment on above: Performed By: #### 3 1595 #### [facility] [address] [place] [address], [place] Glucose [Mass/Vol] 120 mg/dL High 70-100 [facility] Comment on above: Performed By: #### 8 5499 #### [facility] [address] [place] [address], [place] Glucose [Mass/Vol] 123 mg/dL High 70-100 [facility] Comment on above: Performed By: #### 3 1595 #### [facility] [address] [place] [address], [place] Glucose [Mass/Vol] 105 mg/dL High 70-100 The [facility] Comment on above: Performed By: #### 8 5499 #### [facility] [address] [place] [address], [place] Glucose [Mass/Vol] 127 mg/dL High 70-100 The [facility] Comment on above: Performed By: #### 3 1595 #### [facility] [address] [facility] [place] [address], [facility] Glucose [Mass/Vol] 154 mg/dL High 70-100 The [facility] Comment on above: Performed By: #### 3 1595 #### [facility] [address] [facility] [place] [address], [facility] Glucose [Mass/Vol] 149 mg/dL High 70-100 The [facility] Comment on above: Performed By: #### 3 1595 #### [facility] [address] [place] [address], [facility] PORTABLE CHEST 1 VIEWon 03-20 PORTABLE CHEST 1 VIEW [facility] Department of Radiology [address] [place] [address] Patient Name: SJ BREWSTER : 1950 Sex: F Age: Race: White Pt. Location: [place] [address] Patient Status: I Ordered Date: 04/03/2021 5:30:00 [...] of median sternotomy. Removal of previously seen L[place]-Ayan catheter, mediastinal drain, left basilar chest tube. [...] Patel. Electronically signed: DENISE PATEL. Transcribed by: [email or web address], User Resident: Electronically Signed by: DENISE PATEL @ 04/03/2021 07:17 PM Normal [facility] Comment on above: Order Comment: evalu ate for Pneumothorax PORTABLE CHEST 1 VIEW [facility] Department of Radiology [address] [place] [id number] Patient Name: SJ BREWSTER : 1950 Sex: F Age: Race: White Pt. Location: [place] [address] Patient Status: I Ordered Date: 04/03/2021 7:00:00 [...] tube and NG tube have been removed, L[place]-Ayan catheter tip remains in the pulmonary outflow tract. Mediastinal and left-sided chest tubes remain no pneumothorax identified. Minimal bibasilar atelectasis suggested, otherwise lungs IMPRESSION: Status post extubation. Minimal atelectasis over both lung bases. No change in chest tubes. Electronically signed: Roney Vigil. Transcribed by: [email or web address], User Resident: Electronically Signed by: RONEY VIGIL @ 04/03/2021 09:03 AM Normal [facility] Comment on above: Order Comment: evalu ate Chest Tube Position PROTHROMBIN TIMEon INR Coag (PPP) [Relative time] 1.33 {INR} High 0.91-1.16 [facility] Comment on above: Order Comment: post [...] 1995;[id number]. Performed By: #### 8 [id number] #### [facility] [address] [place] [address], [facility] PT Coag (PPP) [Time] 16.5 s High 12.3-14.8 [facility] Comment on above: Order Comment: post op day 1No: Do not add to previous draw Result Comment: ALL RESULTS MUST BE INTERPRETED WITH RESPECT TO BLOOD DRAWING ARTIFACT OR DILUTION ERROR OF ANTICOAGULANT AT THE TIME OF SAMPLING. Performed By: #### 8 [id number] #### [facility] [address] [place] [address], [place] ACTIVATED CLOTTING TIMEon ACTIVATED CLOTTING TIME 121 sec Normal 82-152 [facility] Comment on above: Performed By: #### 8 [id number] #### [facility] [address] [place] [address], [place] ACTIVATED CLOTTING TIME 126 sec Normal 82-152 [facility] Comment on above: Performed By: #### 8 [id number] #### [facility] [address] [place] [address], [place] ACTIVATED CLOTTING TIME 132 sec Normal 82-152 [facility] Comment on above: Performed By: #### 3 0739 #### [facility] [address] [place] [address], [place] ACTIVATED CLOTTING TIME 655 sec High 82-152 [facility] Comment on above: Performed By: #### 3 1976 #### [facility] [address] [place] [address], [place] ACTIVATED CLOTTING TIME 484 sec High 82-152 [facility] Comment on above: Performed By: #### 3 1976 #### [facility] [address] [place] [address], [facility] ACTIVATED CLOTTING TIME 599 sec High 82-152 [facility] Comment on above: Performed By: #### 8 [id number] #### [facility] [address] [place] [address], [place] ACTIVATED CLOTTING TIME 694 sec High 82-152 [facility] Comment on above: Performed By: #### 8 [id number] #### [facility] [address] [place] [address], [facility] ACTIVATED CLOTTING TIME 484 sec High 82-152 [facility] Comment on above: Performed By: #### 8 [id number] #### [facility] [address] [place] [address], [facility] ACTIVATED CLOTTING TIME 416 sec High 82-152 [facility] Comment on above: Performed By: #### 3 1976 #### [facility] [address] [place] [address], [facility] ACTIVATED CLOTTING TIME 121 sec Normal 82-152 [facility] Comment on above: Performed By: #### 3 1976 #### [facility] [address] [place] [address], [facility] APTTon 04-02-2021 aPTT Coag (Bld) [Time] 32.6 s Normal 25.0-35.0 [facility] Comment on above: Order Comment: No: [...] PURPOSE. Performed By: #### 8 [id number] #### [facility] [address] [place] [address], [facility] aPTT Coag (Bld) [Time] 43.1 s High 25.0-35.0 [facility] Comment on above: Result Comment: [...] PURPOSE. Performed By: #### 8 [id number] #### [facility] [address] ARTERIAL BLOOD GAS WITH ICAo n 04-02-2021 BASE EXCESS -5 mmol/L Low -2-3 [facility] Comment on above: Performed By: #### 3 0965 #### [facility] [address] [facility] [address] BILEVEL 5 Normal [facility] Comment on above: Performed By: #### 3 0965 #### [facility] 3000 [facility]. [address] DELIVERY SYSTEMS MV Normal [facility] Comment on above: Performed By: #### 3 0965 #### [facility] 3000 [facility]. [address] FIO2 40 % Normal [facility] Comment on above: Performed By: #### 3 0965 #### [facility] [address] [facility] [address] HCO3 (Bld) [Moles/Vol] 20 mmol/L Low 21-28 [facility] Comment on above: Performed By: #### 3 0965 #### [facility] [address] [facility] [address] IONIZED CALCIUM 1.28 mmol/L Normal 1.13-1.32 [facility] Comment on above: Performed By: #### 3 0965 #### [facility] [address] [facility] [address] MIN VOLUME 7.1 Normal [facility] Comment on above: Performed By: #### 3 0965 #### [facility] [address] [place] [address], [facility] MODALITY SPONT Normal [facility] Comment on above: Performed By: #### 3 0965 #### [facility] [address] [place] [address], [facility] Oxygen (Bld) [Partial pressure] 156 mm[Hg] Critically high 83-108 [facility] Comment on above: Performed By: #### 3 0965 #### [facility] [address] [place] [address], [facility] Oxygen saturation in Blood 97.2 % High 94.0-97.0 [facility] Comment on above: Performed By: #### 3 0965 #### [facility] [address] [place] [address], [facility] PCO2 37 mmHg Normal 35-45 [facility] Comment on above: Performed By: #### 3 0965 #### [facility] [address] [place] [address], [facility] PEEP 6.0 CMH20 Normal [facility] Comment on above: Performed By: #### 3 0965 #### [facility] [address] [place] [address], [facility] pH (Bld) 7.34 [pH] Low 7.35-7.45 [facility] Comment on above: Performed By: #### 3 0965 #### [facility] [address] [place] [address], [facility] BASE EXCESS -5 mmol/L Low -2-3 [facility] Comment on above: Order Comment: on ar rival to CVU Performed By: #### 8 [id number] #### [facility] [address] [place] [address], [facility] DELIVERY SYSTEMS MV Normal [facility] Comment on above: Order Comment: on ar rival to CVU Performed By: #### 8 [id number] #### [facility] [address] [place] [address], [place] FIO2 40 % Normal [facility] Comment on above: Order Comment: on ar rival to CVU Performed By: #### 8 5499 #### [facility] [address] [place] [address], [place] HCO3 (Bld) [Moles/Vol] 19 mmol/L Low 21-28 [facility] Comment on above: Order Comment: on ar rival to CVU Performed By: #### 8 5499 #### [facility] [address] [place] [address], [place] IONIZED CALCIUM 1.38 mmol/L High 1.13-1.32 [facility] Comment on above: Order Comment: on ar rival to CVU Performed By: #### 8 [id number] #### [facility] [address] [place] [address], [place] MIN VOLUME 8.0 Normal [facility] Comment on above: Order Comment: on ar rival to CVU Performed By: #### 8 5499 #### [facility] [address] [place] [address], [place] MODALITY SIMV Normal [facility] Comment on above: Order Comment: on ar rival to CVU Performed By: #### 8 [id number] #### [facility] [address] [place] [address], [place] Oxygen (Bld) [Partial pressure] 192 mm[Hg] Critically high 83-108 [facility] Comment on above: Order Comment: on ar rival to CVU Performed By: #### 8 [id number] #### [facility] [address] [place] [address], [place] Oxygen saturation in Blood 97.6 % High 94.0-97.0 [facility] Comment on above: Order Comment: on ar rival to CVU Performed By: #### 8 5499 #### [facility] [address] [place] [address], [place] PCO2 31 mmHg Low 35-45 [facility] Comment on above: Order Comment: on ar rival to CVU Performed By: #### 8 5499 #### [facility] [address] [place] [address], [place] PEEP 5.0 CMH20 Normal [facility] Comment on above: Order Comment: on ar rival to CVU Performed By: #### 8 5499 #### [facility] [address] [place] [address], [place] pH (Bld) 7.39 [pH] Normal 7.35-7.45 [facility] Comment on above: Order Comment: on ar rival to CVU Performed By: #### 8 5499 #### [facility] [address] [place] [address], [place] PRESSURE SUPPORT 8 Normal [facility] Comment on above: Order Comment: on ar rival to CVU Performed By: #### 8 5499 #### [facility] [address] [place] [address], [place] Respiratory rate 14 /min Normal [facility] Comment on above: Order Comment: on ar rival to CVU Performed By: #### 8 5499 #### [facility] [address] [place] [address], [place] TIDAL VOLUME (VT) CC 450 Normal [facility] Comment on above: Order Comment: on ar rival to CVU Performed By: #### 8 5499 #### [facility] [address] [place] [address], [place] BASIC METABOLIC PANELon 07- Calcium [Mass/Vol] 8.8 mg/dL Normal 8.6-10.3 [facility] Comment on above: Order Comment: Check Chest Tube Position, ON ARRIVAL TO CVU Performed By: #### 0 0071, 14208, 62973 ####[facility] [place] [address], [facility] Chloride [Moles/Vol] 108 mmol/L High 98-107 [facility] Comment on above: Order Comment: Check Chest Tube Position, ON ARRIVAL TO CVU Performed By: #### 0 0071, 86450, 11994 ####[facility] [place] [address], [place] CO2 [Moles/Vol] 25 mmol/L Normal 21-31 [facility] Comment on above: Order Comment: Check Chest Tube Position, ON ARRIVAL TO CVU Performed By: #### 0 0071, 10087, 81013 ####[facility] [place] [address], [facility] Creatinine [Mass/Vol] 0.57 mg/dL Low 0.60-1.20 [facility] Comment on above: Order Comment: Check Chest Tube Position, ON ARRIVAL TO CVU Performed By: #### 0 0071, 66171, 15522 ####[facility] [place] [address], [facility] GFR/1.73 sq M.predicted among blacks MDRD (S/P/Bld) [Vol rate/Area] mL/min/{1.73_m2} Normal >60 [facility] Comment on above: Order Comment: Check Chest Tube Position, ON ARRIVAL TO CVU Performed By: #### 0 0071, 30073, 77723 ####[facility] [place] [address], [facility] GFR/1.73 sq M.predicted among non-blacks MDRD (S/P/Bld) [Vol rate/Area] mL/min/{1.73_m2} Normal >60 [facility] Comment on above: Order Comment: Check Chest Tube Position, ON ARRIVAL TO CVU Performed By: #### 0 0071, 74208, 71473 ####[facility] [place] [address], [place] Glucose [Mass/Vol] 164 mg/dL High 70-100 [facility] Comment on above: Order Comment: Check Chest Tube Position, ON ARRIVAL TO CVU Performed By: #### 0 0071, 98649, 27183 ####[facility] [place] [address], [place] Potassium [Moles/Vol] 3.8 mmol/L Normal 3.5-5.1 [facility] Comment on above: Order Comment: Check Chest Tube Position, ON ARRIVAL TO CVU Performed By: #### 0 0071, 72060, 51680 ####[facility] [place] [address], [place] Sodium [Moles/Vol] 139 mmol/L Normal 136-145 [facility] Comment on above: Order Comment: Check Chest Tube Position, ON ARRIVAL TO CVU Performed By: #### 0 0071, 67607, 64777 ####[facility] [place] [address], [place] Urea nitrogen [Mass/Vol] 10 mg/dL Normal 7-25 [facility] Comment on above: Order Comment: Check Chest Tube Position, ON ARRIVAL TO CVU Performed By: #### 0 0071, 22868, 86736 ####[facility] [place] [address], [place] Calcium [Mass/Vol] 9.4 mg/dL Normal 8.6-10.3 [facility] Comment on above: Performed By: #### 0 0071, 70161 ####[facility] [place] [address], [place] Chloride [Moles/Vol] 111 mmol/L High 98-107 [facility] Comment on above: Performed By: #### 0 0071, 97260 ####[facility] [place] [address], [facility] CO2 [Moles/Vol] 23 mmol/L Normal 21-31 [facility] Comment on above: Performed By: #### 0 0071, 78481 ####[facility] [facility] [place] [address], [facility] Creatinine [Mass/Vol] 0.49 mg/dL Low 0.60-1.20 [facility] Comment on above: Performed By: #### 0 0071, 57297 ####[facility] [facility] [place] [address], [facility] GFR/1.73 sq M.predicted among blacks MDRD (S/P/Bld) [Vol rate/Area] mL/min/{1.73_m2} Normal >60 [facility] Comment on above: Performed By: #### 0 0071, 63419 ####[facility] [facility] [place] [address], [facility] GFR/1.73 sq M.predicted among non-blacks MDRD (S/P/Bld) [Vol rate/Area] mL/min/{1.73_m2} Normal >60 [facility] Comment on above: Performed By: #### 0 0071, 80871 ####[facility] [facility] [place] [address], [facility] Glucose [Mass/Vol] 138 mg/dL High 70-100 [facility] Comment on above: Performed By: #### 0 0071, 71522 ####[facility] [facility] [place] [address], [facility] Potassium [Moles/Vol] 3.9 mmol/L Normal 3.5-5.1 [facility] Comment on above: Performed By: #### 0 0071, 34704 ####[facility] [place] [address], [facility] Sodium [Moles/Vol] 140 mmol/L Normal 136-145 [facility] Comment on above: Performed By: #### 0 0071, 80907 ####[facility] [place] [address], [facility] Urea nitrogen [Mass/Vol] 8 mg/dL Normal 7-25 [facility] Comment on above: Performed By: #### 0 0071, 90566 ####[facility] [place] [address], [facility] CBC COMPLETE BLOOD COUNTon 0 04-02-2021 Erythrocyte distribution width (RBC) [Ratio] 15.9 % High 11.5-15.0 [facility] Comment on above: Order Comment: No: D o not add to previous draw Performed By: #### 8 5499 #### [facility] [address] [place] [address], [facility] Hematocrit (Bld) [Volume fraction] 34.4 % Low 36.0-45.0 [facility] Comment on above: Order Comment: No: D o not add to previous draw Performed By: #### 8 5499 #### [facility] [address] [place] [address], [place] Hemoglobin (Bld) [Mass/Vol] 11.9 g/dL Low 12.0-15.0 [facility] Comment on above: Order Comment: No: D o not add to previous draw Performed By: #### 8 5499 #### [facility] [address] [place] [address], [place] IMM PLATELET FRAC 3.9 % Normal 0.8-6.3 [facility] Comment on above: Order Comment: No: D o not add to previous draw Performed By: #### 8 5499 #### [facility] [address] [place] [address], [facility] MCH (RBC) [Entitic mass] 30.6 pg Normal 27.0-33.0 [facility] Comment on above: Order Comment: No: D o not add to previous draw Performed By: #### 8 5499 #### [facility] [address] [place] [id number], [facility] MCHC (RBC) [Mass/Vol] 34.6 g/dL Normal 32.0-35.0 [facility] Comment on above: Order Comment: No: D o not add to previous draw Performed By: #### 8 5499 #### [facility] [address] [place] [address], [facility] MCV (RBC) [Entitic vol] 88.4 fL Normal 82.0-98.0 [facility] Comment on above: Order Comment: No: D o not add to previous draw Performed By: #### 8 5499 #### [facility] [address] [place] [address], [facility] Nucleated RBC/100 WBC (Bld) [Ratio] 0 % Normal 0-0 [facility] Comment on above: Order Comment: No: D o not add to previous draw Performed By: #### 8 5499 #### [facility] [address] [place] [id number], [facility] PLAT CNT 140 10*3/uL Low 150-400 [facility] Comment on above: Order Comment: No: D o not add to previous draw Performed By: #### 8 5499 #### [facility] [address] [place] [id number], [facility] RBC (Bld) [#/Vol] 3.89 10*6/uL Normal 3.80-5.00 [facility] Comment on above: Order Comment: No: D o not add to previous draw Performed By: #### 8 5499 #### [facility] [address] [place] [id number] WBC (Bld) [#/Vol] 19.57 10*3/uL High 4.00-10.60 [facility] Comment on above: Order Comment: No: D o not add to previous draw Performed By: #### 8 5499 #### [facility] [address] Erythrocyte distribution width (RBC) [Ratio] 14.7 % Normal 11.5-15.0 [facility] Comment on above: Performed By: #### 8 5499 #### [facility] [address] [place] [address], [facility] Hematocrit (Bld) [Volume fraction] 27.3 % Low 36.0-45.0 [facility] Comment on above: Performed By: #### 8 5499 #### [facility] [address] [place] [address], [facility] Hemoglobin (Bld) [Mass/Vol] 9.1 g/dL Low 12.0-15.0 [facility] Comment on above: Performed By: #### 8 5499 #### [facility] [address] [facility] [place] [address], [facility] MCH (RBC) [Entitic mass] 30.3 pg Normal 27.0-33.0 [facility] Comment on above: Performed By: #### 8 5499 #### [facility] [address] [place] [address], [facility] MCHC (RBC) [Mass/Vol] 33.3 g/dL Normal 32.0-35.0 [facility] Comment on above: Performed By: #### 8 5499 #### [facility] [address] [place] [address], [facility] MCV (RBC) [Entitic vol] 91.0 fL Normal 82.0-98.0 [facility] Comment on above: Performed By: #### 8 5499 #### [facility] [address] Nucleated RBC/100 WBC (Bld) [Ratio] 0 % Normal 0-0 [facility] Comment on above: Performed By: #### 8 5499 #### [facility] [address] [facility] [place] [address], [facility] PLAT CNT 103 10*3/uL Low 150-400 [facility] Comment on above: Performed By: #### 8 5499 #### [facility] [address] [facility] RBC (Bld) [#/Vol] 3.00 10*6/uL Low 3.80-5.00 [facility] Comment on above: Performed By: #### 8 5499 #### [facility] [address] WBC (Bld) [#/Vol] 15.30 10*3/uL High 4.00-10.60 [facility] Comment on above: Performed By: #### 8 5499 #### [facility] [address] FIBRINOGENon 04-02-2021 FIBRINOGEN 138 mg/dL Low 150-425 [facility] Comment on above: Performed By: #### 8 5499 #### [facility] [address] FRESH FROZEN PLASMA 2 UNITSo n 04-02-2021 PRODUCT CODE 1 E2701 Normal The [facility] Comment on above: Order Comment: INR: 2.39 ,PTT: 43.1 at the time of order ;Indication: Performed By: #### 8 5499 #### [facility] [address] [facility]. [address] PRODUCT CODE 2 E2701 Normal The [facility] Comment on above: Order Comment: INR: 2.39 ,PTT: 43.1 at the time of order ;Indication: Performed By: #### 8 5499 #### [facility] [address] [place] [address], [facility] PRODUCT STATUS 1 RE Normal [facility] Comment on above: Order Comment: INR: 2.39 ,PTT: 43.1 at the time of order ;Indication: Result Comment: Resu lt changed by IF on 04/04/2021 01:00. The previous value was XX. Performed By: #### 8 5499 #### [facility] [address] [place] [address], [place] PRODUCT STATUS 2 RE Normal [facility] Comment on above: Order Comment: INR: 2.39 ,PTT: 43.1 at the time of order ;Indication: Result Comment: Resu lt changed by IF on 04/04/2021 01:00. The previous value was XX. Performed By: #### 8 [id number] #### [facility] [address] [place] [address], [facility] UNIT ABO 1 A Normal [facility] Comment on above: Order Comment: INR: 2.39 ,PTT: 43.1 at the time of order ;Indication: Performed By: #### 8 5499 #### [facility] [address] [place] [address], [place] UNIT ABO 2 A Normal [facility] Comment on above: Order Comment: INR: 2.39 ,PTT: 43.1 at the time of order ;Indication: Performed By: #### 8 5499 #### [facility] [address] [place] [address], [facility] UNIT ID 1 [id number] Normal [facility] Comment on above: Order Comment: INR: 2.39 ,PTT: 43.1 at the time of order ;Indication: Performed By: #### 8 5499 #### [facility] [address] [place] [address], [place] UNIT ID 2 [id number] Normal [facility] Comment on above: Order Comment: INR: 2.39 ,PTT: 43.1 at the time of order ;Indication: Performed By: #### 8 5499 #### [facility] [address] [place] [address], [facility] UNIT RH 1 Positive Normal [facility] Comment on above: Order Comment: INR: 2.39 ,PTT: 43.1 at the time of order ;Indication: Performed By: #### 8 5499 #### [facility] [address] [place] [address], [place] UNIT RH 2 Positive Normal [facility] Comment on above: Order Comment: INR: 2.39 ,PTT: 43.1 at the time of order ;Indication: Performed By: #### 8 5499 #### [facility] 3000 [place] [address], [facility] LACTATE BLOODon 04-02-2021 Lactate [Moles/Vol] 1.5 mmol/L Normal 0.5-2.2 [facility] Comment on above: Performed By: #### 3 0965 #### [facility] [address] [place] [address], [facility] MAGNESIUM BLOODon 04-02-2021 Magnesium [Mass/Vol] 1.8 mg/dL Low 1.9-2.7 [facility] Comment on above: Order Comment: Check Chest Tube Position, ON ARRIVAL TO CVU Performed By: #### 0 0071, [id number], [id number] ####[facility] [place] [address], [facility] Magnesium [Mass/Vol] 2.6 mg/dL Normal 1.9-2.7 [facility] Comment on above: Performed By: #### 0 0071, [id number] ####[facility] [place] [address], [place] PERFUSION BLOOD PANELon 03-20 BASE EXCESS -1.0 mmol/L Normal -2.0-3.0 [facility] Comment on above: Performed By: #### 3 1976 #### [facility] [address] [place] [address], [facility] Glucose [Mass/Vol] 139 mg/dL High 70-105 [facility] Comment on above: Performed By: #### 3 1976 #### [facility] [address] [place] [address], [facility] Hematocrit (Bld) [Volume fraction] 24 % Low 38-51 [facility] Comment on above: Performed By: #### 3 1976 #### [facility] [address] [place] [address], [facility] Hemoglobin (Bld) [Mass/Vol] 8.2 g/dL Low 12.0-17.0 [facility] Comment on above: Performed By: #### 3 1976 #### [facility] [address] [facility] [place] [address], [facility] IONIZED CALCIUM 1.35 mmol/L High 1.12-1.32 [facility] Comment on above: Performed By: #### 3 1976 #### [facility] [address] [place] [address], [facility] Oxygen (Bld) [Partial pressure] 530.0 mm[Hg] High 80.0-105.0 [facility] Comment on above: Performed By: #### 3 1976 #### [facility] [address] [place] [address], [facility] PCO2 40.1 mmHg Normal 35.0-45.0 [facility] Comment on above: Performed By: #### 3 1976 #### [facility] [address] [place] [address], [facility] pH (Bld) 7.39 [pH] Normal 7.35-7.45 [facility] Comment on above: Performed By: #### 3 1976 #### [facility] [address] [place] [address], [place] Potassium [Moles/Vol] 4.1 mmol/L Normal 3.5-4.9 [facility] Comment on above: Performed By: #### 3 1976 #### [facility] [address] [place] [address], [place] Sodium [Moles/Vol] 140 mmol/L Normal 138-146 [facility] Comment on above: Performed By: #### 3 1976 #### [facility] [address] [place] [address], [place] BASE EXCESS 2.0 mmol/L Normal -2.0-3.0 [facility] Comment on above: Performed By: #### 3 1976 #### [facility] [address] [place] [address], [place] Glucose [Mass/Vol] 146 mg/dL High 70-105 [facility] Comment on above: Performed By: #### 3 1976 #### [facility] [address] [place] [address], [place] Hematocrit (Bld) [Volume fraction] 16 % Low 38-51 [facility] Comment on above: Performed By: #### 3 1976 #### [facility] [address] [place] [address], [place] Hemoglobin (Bld) [Mass/Vol] 5.4 g/dL Critically low 12.0-17.0 [facility] Comment on above: Performed By: #### 3 1976 #### [facility] [address] [place] [address], [place] IONIZED CALCIUM 1.15 mmol/L Normal 1.12-1.32 [facility] Comment on above: Performed By: #### 3 1976 #### [facility] [address] [place] [address], [place] Oxygen (Bld) [Partial pressure] 529.0 mm[Hg] High 80.0-105.0 [facility] Comment on above: Performed By: #### 3 1976 #### [facility] [address] [place] [address], [facility] PCO2 37.9 mmHg Normal 35.0-45.0 [facility] Comment on above: Performed By: #### 3 1976 #### [facility] [address] [place] [address], [facility] pH (Bld) 7.44 [pH] Normal 7.35-7.45 [facility] Comment on above: Performed By: #### 3 1976 #### [facility] [address] [place] [address], [place] Potassium [Moles/Vol] 3.9 mmol/L Normal 3.5-4.9 [facility] Comment on above: Performed By: #### 3 1976 #### [facility] [address] [place] [address], [place] Sodium [Moles/Vol] 141 mmol/L Normal 138-146 [facility] Comment on above: Performed By: #### 3 1976 #### [facility] [address] [place] [address], [place] BASE EXCESS 2.0 mmol/L Normal -2.0-3.0 [facility] Comment on above: Performed By: #### 8 5499 #### [facility] [address] [place] [address], [place] Glucose [Mass/Vol] 168 mg/dL High 70-105 [facility] Comment on above: Performed By: #### 8 5499 #### [facility] [address] [place] [address], [place] Hematocrit (Bld) [Volume fraction] 17 % Low 38-51 [facility] Comment on above: Performed By: #### 8 5499 #### [facility] [address] [place] [address], [facility] Hemoglobin (Bld) [Mass/Vol] 5.8 g/dL Critically low 12.0-17.0 [facility] Comment on above: Performed By: #### 8 5499 #### [facility] [address] [place] [address], [facility] IONIZED CALCIUM 1.95 mmol/L Critically high 1.12-1.32 [facility] Comment on above: Performed By: #### 8 5499 #### [facility] [address] [place] [address], [facility] Oxygen (Bld) [Partial pressure] 489.0 mm[Hg] High 80.0-105.0 [facility] Comment on above: Performed By: #### 8 5499 #### [facility] [address] [place] [address], [facility] PCO2 41.5 mmHg Normal 35.0-45.0 [facility] Comment on above: Performed By: #### 8 5499 #### [facility] [address] [facility] [place] [address], [facility] pH (Bld) 7.42 [pH] Normal 7.35-7.45 [facility] Comment on above: Performed By: #### 8 5499 #### [facility] [address] [place] [address], [facility] Potassium [Moles/Vol] 4.7 mmol/L Normal 3.5-4.9 [facility] Comment on above: Performed By: #### 8 5499 #### [facility] [address] [place] [address], [place] Sodium [Moles/Vol] 136 mmol/L Low 138-146 [facility] Comment on above: Performed By: #### 8 5499 #### [facility] [address] [place] [address], [place] BASE EXCESS 0.0 mmol/L Normal -2.0-3.0 [facility] Comment on above: Performed By: #### 8 5499 #### [facility] [address] [place] [address], [place] Glucose [Mass/Vol] 126 mg/dL High 70-105 [facility] Comment on above: Performed By: #### 8 5499 #### [facility] [address] [place] [address], [place] Hematocrit (Bld) [Volume fraction] 16 % Low 38-51 [facility] Comment on above: Performed By: #### 8 5499 #### [facility] [address] [place] [address], [place] Hemoglobin (Bld) [Mass/Vol] 5.4 g/dL Critically low 12.0-17.0 [facility] Comment on above: Performed By: #### 8 5499 #### [facility] [address] [place] [address], [facility] IONIZED CALCIUM 0.94 mmol/L Low 1.12-1.32 [facility] Comment on above: Performed By: #### 8 5499 #### [facility] [address] [place] [address], [place] Oxygen (Bld) [Partial pressure] 37.0 mm[Hg] Normal [facility] Comment on above: Performed By: #### 8 5499 #### [facility] [address] [place] [address], [place] PCO2 36.9 mmHg Low 41.0-51.0 [facility] Comment on above: Performed By: #### 8 5499 #### [facility] [address] [place] [address], [place] pH (Bld) 7.43 [pH] High 7.31-7.41 [facility] Comment on above: Performed By: #### 8 5499 #### [facility] [address] [place] [address], [facility] Potassium [Moles/Vol] 4.4 mmol/L Normal 3.5-4.9 [facility] Comment on above: Performed By: #### 8 5499 #### [facility] [address] [place] [address], [facility] Sodium [Moles/Vol] 140 mmol/L Normal 138-146 [facility] Comment on above: Performed By: #### 8 5499 #### [facility] [address] [place] [address], [facility] BASE EXCESS 3.0 mmol/L Normal -2.0-3.0 [facility] Comment on above: Performed By: #### 8 5499 #### [facility] [address] [place] [id number], [facility] Glucose [Mass/Vol] 117 mg/dL High 70-105 [facility] Comment on above: Performed By: #### 8 5499 #### [facility] [address] [place] [id number], [facility] Hematocrit (Bld) [Volume fraction] 18 % Low 38-51 [facility] Comment on above: Performed By: #### 8 5499 #### [facility] [address] [place] [address], [facility] Hemoglobin (Bld) [Mass/Vol] 6.1 g/dL Low 12.0-17.0 [facility] Comment on above: Performed By: #### 8 5499 #### [facility] [address] [place] [id number], [facility] IONIZED CALCIUM 0.92 mmol/L Low 1.12-1.32 [facility] Comment on above: Performed By: #### 8 5499 #### [facility] [address] [place] [address], [facility] Oxygen (Bld) [Partial pressure] 445.0 mm[Hg] High 80.0-105.0 [facility] Comment on above: Performed By: #### 8 5499 #### [facility] [address] [place] [address], [place] PCO2 36.6 mmHg Normal 35.0-45.0 [facility] Comment on above: Performed By: #### 8 5499 #### [facility] [address] [place] [address], [place] pH (Bld) 7.48 [pH] High 7.35-7.45 [facility] Comment on above: Performed By: #### 8 9 #### [facility] [address] [place] [address], [place] Potassium [Moles/Vol] 4.4 mmol/L Normal 3.5-4.9 [facility] Comment on above: Performed By: #### 8 9 #### [facility] [address] [place] [address], [place] Sodium [Moles/Vol] 138 mmol/L Normal 138-146 [facility] Comment on above: Performed By: #### 8 5499 #### [facility] [address] [place] [address], [place] BASE EXCESS 4.0 mmol/L High -2.0-3.0 [facility] Comment on above: Performed By: #### 3 1976 #### [facility] [address] [place] [address], [place] Glucose [Mass/Vol] 118 mg/dL High 70-105 [facility] Comment on above: Performed By: #### 3 1976 #### [facility] [address] [place] [address], [place] Hematocrit (Bld) [Volume fraction] 20 % Low 38-51 [facility] Comment on above: Performed By: #### 3 1976 #### [facility] [address] [place] [address], [facility] Hemoglobin (Bld) [Mass/Vol] 6.8 g/dL Low 12.0-17.0 [facility] Comment on above: Performed By: #### 3 1976 #### [facility] [address] [facility] [place] [address], [facility] IONIZED CALCIUM 0.96 mmol/L Low 1.12-1.32 [facility] Comment on above: Performed By: #### 3 1976 #### [facility] [address] [facility] [place] [address], [facility] Oxygen (Bld) [Partial pressure] 466.0 mm[Hg] High 80.0-105.0 [facility] Comment on above: Performed By: #### 3 1976 #### [facility] [address] [facility] [place] [address], [facility] PCO2 35.3 mmHg Normal 35.0-45.0 [facility] Comment on above: Performed By: #### 3 1976 #### [facility] [address] [facility] [place] [address], [facility] pH (Bld) 7.51 [pH] High 7.35-7.45 [facility] Comment on above: Performed By: #### 3 1976 #### [facility] [address] [facility] [place] [address], [facility] Potassium [Moles/Vol] 4.3 mmol/L Normal 3.5-4.9 [facility] Comment on above: Performed By: #### 3 1976 #### [facility] [address] [facility] [place] [address], [facility] Sodium [Moles/Vol] 138 mmol/L Normal 138-146 [facility] Comment on above: Performed By: #### 3 1976 #### [facility] [address] [place] [address], [place] BASE EXCESS 1.0 mmol/L Normal -2.0-3.0 [facility] Comment on above: Performed By: #### 3 1976 #### [facility] [address] [place] [address], [place] Glucose [Mass/Vol] 92 mg/dL Normal 70-105 [facility] Comment on above: Performed By: #### 3 1976 #### [facility] [address] [place] [address], [place] Hematocrit (Bld) [Volume fraction] 18 % Low 38-51 [facility] Comment on above: Performed By: #### 3 1976 #### [facility] [address] [place] [address], [place] Hemoglobin (Bld) [Mass/Vol] 6.1 g/dL Low 12.0-17.0 [facility] Comment on above: Performed By: #### 3 1976 #### [facility] [address] [place] [address], [place] IONIZED CALCIUM 0.90 mmol/L Low 1.12-1.32 [facility] Comment on above: Performed By: #### 3 1976 #### [facility] [address] [place] [address], [place] Oxygen (Bld) [Partial pressure] 45.0 mm[Hg] Normal [facility] Comment on above: Performed By: #### 3 1976 #### [facility] [address] [place] [address], [place] PCO2 32.1 mmHg Low 41.0-51.0 [facility] Comment on above: Performed By: #### 3 1976 #### [facility] [address] [place] [address], [place] pH (Bld) 7.49 [pH] High 7.31-7.41 [facility] Comment on above: Performed By: #### 3 1976 #### [facility] [address] [place] [address], [facility] Potassium [Moles/Vol] 3.7 mmol/L Normal 3.5-4.9 [facility] Comment on above: Performed By: #### 3 1976 #### [facility] [address] [place] [id number], [facility] Sodium [Moles/Vol] 138 mmol/L Normal 138-146 [facility] Comment on above: Performed By: #### 3 1976 #### [facility] [address] [place] [id number], [facility] BASE EXCESS 7.0 mmol/L High -2.0-3.0 [facility] Comment on above: Performed By: #### 3 1976 #### [facility] [address] [place] [address], [facility] Glucose [Mass/Vol] 94 mg/dL Normal 70-105 [facility] Comment on above: Performed By: #### 3 1976 #### [facility] [address] [place] [address], [facility] Hematocrit (Bld) [Volume fraction] 17 % Low 38-51 [facility] Comment on above: Performed By: #### 3 1976 #### [facility] [address] [place] [id number], [facility] Hemoglobin (Bld) [Mass/Vol] 5.8 g/dL Critically low 12.0-17.0 [facility] Comment on above: Performed By: #### 3 1976 #### [facility] [address] [place] [id number], [facility] IONIZED CALCIUM 0.85 mmol/L Low 1.12-1.32 [facility] Comment on above: Performed By: #### 3 1976 #### [facility] [address] [place] [address], [facility] Oxygen (Bld) [Partial pressure] 553.0 mm[Hg] High 80.0-105.0 [facility] Comment on above: Performed By: #### 3 1976 #### [facility] [address] [place] [address], [place] PCO2 32.8 mmHg Low 35.0-45.0 [facility] Comment on above: Performed By: #### 3 1976 #### [facility] [address] [place] [address], [place] pH (Bld) 7.57 [pH] High 7.35-7.45 [facility] Comment on above: Performed By: #### 3 1976 #### [facility] [address] [place] [address], [place] Potassium [Moles/Vol] 3.7 mmol/L Normal 3.5-4.9 [facility] Comment on above: Performed By: #### 3 1976 #### [facility] [address] [place] [address], [place] Sodium [Moles/Vol] 137 mmol/L Low 138-146 [facility] Comment on above: Performed By: #### 3 1976 #### [facility] [address] [place] [address], [place] BASE EXCESS 0.0 mmol/L Normal -2.0-3.0 [facility] Comment on above: Performed By: #### 3 1976 #### [facility] [address] [place] [address], [place] Glucose [Mass/Vol] 109 mg/dL High 70-105 [facility] Comment on above: Performed By: #### 3 1976 #### [facility] [address] [place] [address], [place] Hematocrit (Bld) [Volume fraction] 27 % Low 38-51 [facility] Comment on above: Performed By: #### 3 1976 #### [facility] [address] [place] [address], [facility] Hemoglobin (Bld) [Mass/Vol] 9.2 g/dL Low 12.0-17.0 [facility] Comment on above: Performed By: #### 3 1976 #### [facility] [address] [facility] [place] [address], [facility] IONIZED CALCIUM 1.17 mmol/L Normal 1.12-1.32 [facility] Comment on above: Performed By: #### 3 1976 #### [facility] [address] [facility] [place] [address], [facility] Oxygen (Bld) [Partial pressure] 336.0 mm[Hg] High 80.0-105.0 [facility] Comment on above: Performed By: #### 3 1976 #### [facility] [address] [facility] [place] [address], [facility] PCO2 41.6 mmHg Normal 35.0-45.0 [facility] Comment on above: Performed By: #### 3 1976 #### [facility] [address] [facility] [place] [address], [facility] pH (Bld) 7.39 [pH] Normal 7.35-7.45 [facility] Comment on above: Performed By: #### 3 1976 #### [facility] [address] [facility] [place] [address], [facility] Potassium [Moles/Vol] 3.6 mmol/L Normal 3.5-4.9 [facility] Comment on above: Performed By: #### 3 1976 #### [facility] [address] [facility]. [place] [id number], [facility] Sodium [Moles/Vol] 139 mmol/L Normal 138-146 [facility] Comment on above: Performed By: #### 3 1976 #### [facility] [address] [place] [address], [facility] BASE EXCESS 2.0 mmol/L Normal -2.0-3.0 [facility] Comment on above: Performed By: #### 8 5499 #### [facility] [address] [place] [address], [place] Glucose [Mass/Vol] 93 mg/dL Normal 70-105 [facility] Comment on above: Performed By: #### 8 5499 #### [facility] [address] [place] [address], [place] Hematocrit (Bld) [Volume fraction] 27 % Low 38-51 [facility] Comment on above: Performed By: #### 8 5499 #### [facility] [address] [place] [address], [facility] Hemoglobin (Bld) [Mass/Vol] 9.2 g/dL Low 12.0-17.0 [facility] Comment on above: Performed By: #### 8 5499 #### [facility] [address] [place] [address], [facility] IONIZED CALCIUM 1.15 mmol/L Normal 1.12-1.32 [facility] Comment on above: Performed By: #### 8 5499 #### [facility] [address] [place] [address], [facility] Oxygen (Bld) [Partial pressure] 545.0 mm[Hg] High 80.0-105.0 [facility] Comment on above: Performed By: #### 8 5499 #### [facility] [address] [place] [address], [place] PCO2 37.6 mmHg Normal 35.0-45.0 [facility] Comment on above: Performed By: #### 8 5499 #### [facility] [address] [place] [address], [place] pH (Bld) 7.45 [pH] Normal 7.35-7.45 [facility] Comment on above: Performed By: #### 8 5499 #### [facility] [address] [place] [address], [facility] Potassium [Moles/Vol] 3.3 mmol/L Low 3.5-4.9 [facility] Comment on above: Performed By: #### 8 5499 #### [facility] [address] [place] [address], [facility] Sodium [Moles/Vol] 140 mmol/L Normal 138-146 [facility] Comment on above: Performed By: #### 8 5499 #### [facility] [address] [place] [address], [facility] PHOSPHORUS BLOODon Phosphate [Mass/Vol] 3.4 mg/dL Normal 2.5-5.0 [facility] Comment on above: Order Comment: Check Chest Tube Position, ON ARRIVAL TO CVU Performed By: #### 0 0071, 16571, [id number] ####[facility] [facility] [place] [address], [facility] POC GLUCOSE LABon 04-02-2021 Glucose [Mass/Vol] 154 mg/dL High 70-100 [facility] Comment on above: Performed By: #### 8 5499 #### [facility] [address] [facility] [place] [place] [address], [facility] Glucose [Mass/Vol] 101 mg/dL High 70-100 [facility] Comment on above: Performed By: #### 3 1595 #### [facility] [address] [facility] [place] [place] [address], [facility] POC SARS COV2 ANTIGEN NEGATI VEon 04-02-2021 POC SARS COV2 ANTIGEN NEG Negative Normal NEGATIVE [facility] Comment on above: Result Comment: Nega [...] signs and symptoms consistent with COVID-19. The [employer] COVID-19 Ag Card is a lateral flow [...] Accreditation. Performed By: #### 3 1977 #### [address] PORTABLE CHEST 1 VIEWon 03-20 PORTABLE CHEST 1 VIEW [facility] Department of Radiology [address] [place] [id number] Patient Name: SJ BREWSTER : 1950 Sex: F Age: Race: White Pt. Location: [place] [address] Patient Status: I Ordered Date: 04/02/2021 1:30:00 [...] stomach. Thoracostomy tubes and mediastinal drainage tube. [place]-Ayan catheter with the tip in the pulmonary outflow. Congested lung valerio. IMPRESSION: As above. Electronically signed: Kirk Campa. Transcribed by: [email or web address], User Resident: Electronically Signed by: KIRK CAMPA @ 04/02/2021 02:43 PM Normal The [facility] Comment on above: Order Comment: Check Chest Tube Position, ON ARRIVAL TO CVU PROTHROMBIN TIMEon INR Coag (PPP) [Relative time] 1.42 {INR} High 0.91-1.16 [facility] Comment on above: Order Comment: No: [...] 1995;108:231S-246S. Performed By: #### 8 [id number] #### [facility] [address] PT Coag (PPP) [Time] 17.4 s High 12.3-14.8 [facility] Comment on above: Order Comment: No: D o not add to previous draw Result Comment: ALL RESULTS MUST BE INTERPRETED WITH RESPECT TO BLOOD DRAWING ARTIFACT OR DILUTION ERROR OF ANTICOAGULANT AT THE TIME OF SAMPLING. Performed By: #### 8 [id number] #### [facility] [address] [facility]. [address] INR Coag (PPP) [Relative time] 1.92 {INR} High 0.91-1.16 [facility] Comment on above: Order Comment: No: [...] 1995;108:231S-246S. Performed By: #### 8 5499 #### [facility] [address] PT Coag (PPP) [Time] 22.0 s High 12.3-14.8 [facility] Comment on above: Order Comment: No: D o not add to previous draw Result Comment: ALL RESULTS MUST BE INTERPRETED WITH RESPECT TO BLOOD DRAWING ARTIFACT OR DILUTION ERROR OF ANTICOAGULANT AT THE TIME OF SAMPLING. Performed By: #### 8 [id number] #### [facility] [address] [place] [address], [place] INR Coag (PPP) [Relative time] 2.39 {INR} High 0.91-1.16 [facility] Comment on above: Result Comment: ACCC [...] 1995;108:231S-246S. Performed By: #### 8 5499 #### [facility] [address] [place] [address], [place] PT Coag (PPP) [Time] 26.2 s High 12.3-14.8 [facility] Comment on above: Result Comment: ALL RESULTS MUST BE INTERPRETED WITH RESPECT TO BLOOD DRAWING ARTIFACT OR DILUTION ERROR OF ANTICOAGULANT AT THE TIME OF SAMPLING. Performed By: #### 8 [id number] #### [facility] [address] [place] [address], [facility] RBC'S 2 UNITSon 04-02-2021 CROSSMATCH INTERP 1 COMP Normal [facility] Comment on above: Performed By: #### 3 0739 #### [facility] [address] [place] [address], [place] CROSSMATCH INTERP 2 COMP Normal [facility] Comment on above: Performed By: #### 3 0739 #### [facility] [address] [place] [address], [facility] PRODUCT CODE 1 E0336 Normal The [facility] Comment on above: Performed By: #### 3 0739 #### [facility] [address] [place] [address], [facility] PRODUCT CODE 2 E0336 Normal [facility] Comment on above: Performed By: #### 3 0739 #### [facility] [address] [place] [address], [place] PRODUCT STATUS 1 RE Normal [facility] Comment on above: Result Comment: Resu lt changed by IF on 04/05/2021 07:21. The previous value was XM. Performed By: #### 3 0739 #### [facility] [address] [place] [address], [facility] PRODUCT STATUS 2 RE Normal [facility] Comment on above: Result Comment: Resu lt changed by IF on 04/05/2021 07:21. The previous value was XM. Performed By: #### 3 0739 #### [facility] [address] [place] [address], [place] UNIT ABO 1 A Normal [facility] Comment on above: Performed By: #### 3 0739 #### [facility] [address] [place] [address], [place] UNIT ABO 2 A Normal [facility] Comment on above: Performed By: #### 3 0739 #### [facility] [address] [place] [address], [place] UNIT ID 1 [id number] Normal [facility] Comment on above: Performed By: #### 3 0739 #### [facility] [address] [place] [address], [place] UNIT ID 2 [id number] Normal [facility] Comment on above: Performed By: #### 3 0739 #### [facility] [address] [place] [address], [place] UNIT RH 1 Negative Normal [facility] Comment on above: Performed By: #### 3 0739 #### [facility] [address] [place] [address], [place] UNIT RH 2 Negative Normal [facility] Comment on above: Performed By: #### 3 0739 #### [facility] [address] [place] [address], [place] CROSSMATCH INTERP 1 COMP Normal [facility] Comment on above: Performed By: #### 3 0965 #### [facility] [address] [place] [address], [place] CROSSMATCH INTERP 2 COMP Normal [facility] Comment on above: Performed By: #### 3 0965 #### [facility] [address] [place] [address], [place] PRODUCT CODE 1 E0336 Normal The [facility] Comment on above: Performed By: #### 3 0965 #### [facility] [address] [place] [address], [place] PRODUCT CODE 2 E0336 Normal [facility] Comment on above: Performed By: #### 3 0965 #### [facility] [address] [place] [address], [place] PRODUCT STATUS 1 PT Normal [facility] Comment on above: Result Comment: Resu lt changed by IF on 04/02/2021 13:04. The previous value was XM. Result changed by IF on 04/03/2021 00:30. The previous value was IS. Performed By: #### 3 0965 #### [facility] [address] [place] [address], [facility] PRODUCT STATUS 2 PT Normal [facility] Comment on above: Result Comment: Resu lt changed by IF on 04/02/2021 13:04. The previous value was XM. Result changed by IF on 04/03/2021 00:30. The previous value was IS. Performed By: #### 3 0965 #### [facility] [address] [place] [address], [facility] UNIT ABO 1 A Normal [facility] Comment on above: Performed By: #### 3 0965 #### [facility] [address] [place] [address], [facility] UNIT ABO 2 A Normal [facility] Comment on above: Performed By: #### 3 0965 #### [facility] [address] [place] [address], [facility] UNIT ID 1 [id number] Normal [facility] Comment on above: Performed By: #### 3 0965 #### [facility] [address] [place] [address], [facility] UNIT ID 2 [id number] Normal [facility] Comment on above: Performed By: #### 3 0965 #### [facility] [address] [place] [address], [place] UNIT RH 1 Negative Normal [facility] Comment on above: Performed By: #### 3 0965 #### [facility] [address] [place] [address], [place] UNIT RH 2 Negative Normal [facility] Comment on above: Performed By: #### 3 0965 #### [facility] [address] [place] [address], [facility] RBC'S 2 UNITSon 04-01-2021 CROSSMATCH INTERP 1 COMP Normal [facility] Comment on above: Performed By: #### 3 0965 #### [facility] [address] [place] [address], [facility] CROSSMATCH INTERP 2 COMP Normal [facility] Comment on above: Performed By: #### 3 0965 #### [facility] [address] [facility] [place] [address], [facility] PRODUCT CODE 1 E0336 Normal The [facility] Comment on above: Performed By: #### 3 0965 #### [facility] [address] [place] [address], [facility] PRODUCT CODE 2 E0336 Normal [facility] Comment on above: Performed By: #### 3 0965 #### [facility] [address] [facility] [place] [address], [facility] PRODUCT STATUS 1 PT Normal [facility] Comment on above: Result Comment: Resu lt changed by IF on 04/02/2021 09:57. The previous value was XM. Result changed by IF on 04/03/2021 00:30. The previous value was IS. Performed By: #### 3 0965 #### [facility] [address] [place] [address], [facility] PRODUCT STATUS 2 PT Normal [facility] Comment on above: Result Comment: Resu lt changed by IF on 04/02/2021 09:57. The previous value was XM. Result changed by IF on 04/03/2021 00:30. The previous value was IS. Performed By: #### 3 0965 #### [facility] [address] UNIT ABO 1 A Normal [facility] Comment on above: Performed By: #### 3 0965 #### [facility] [address] [place] [address], [facility] UNIT ABO 2 A Normal [facility] Comment on above: Performed By: #### 3 0965 #### [facility] [address] UNIT ID 1 [id number] Normal [facility] Comment on above: Performed By: #### 3 0965 #### [facility] [address] UNIT ID 2 [id number] Normal [facility] Comment on above: Performed By: #### 3 0965 #### [facility] [address] UNIT RH 1 Negative Normal [facility] Comment on above: Performed By: #### 3 0965 #### [facility] [address] UNIT RH 2 Negative Normal [facility] Comment on above: Performed By: #### 3 0965 #### [facility] [address] *MRSA/MSSA DNA NASALon 03-25 *MRSA/MSSA DNA NASAL Clinical Report: (D ) Specimen: NASAL SWAB Collected: 03/25/2021 10:21 Status: Final Last Updated: 03/27/2021 08:02 MSSA DNA (Final) Negative MRSA DNA (Final) Methicillin Resistant Staphylococcus aureus DNA Detected Normal [facility] Comment on above: Performed By: #### 3 1595 #### [facility] [address] ANTI C3 DATon 03-25-2021 ANTI C3 ZEENAT Negative Normal [facility] Comment on above: Performed By: #### 3 0965 #### [facility] [address] ANTI IGG DATon 03-25-2021 ANTI IGG ZEENAT Negative Normal [facility] Comment on above: Performed By: #### 3 0965 #### [facility] [address] [facility]. [address] ANTIBODY IDENTIFICATIONon ANTIBODY ID NCSA Normal [facility] Comment on above: Performed By: #### 3 0739 #### [facility] [address] [facility]. [address] APTTon 03-25-2021 aPTT Coag (Bld) [Time] 30.2 s Normal 25.0-35.0 [facility] Comment on above: Result Comment: [...] PURPOSE. Performed By: #### 8 5499 #### [facility] [address] [facility] [address] CBC W/DIFFon 03-25-2021 ABS IMM GRANS 0.0 10*3/uL Normal 0.0-0.2 [facility] Comment on above: Performed By: #### 5 0103 #### [facility] [address] [facility] [place] [place] [address], [facility] ABS NEUTROPHILS 4.7 10*3/uL Normal 1.6-7.6 [facility] Comment on above: Performed By: #### 5 0103 #### [facility] [address] [place] [address], [facility] Basophils (Bld) [#/Vol] 0.1 10*3/uL Normal 0.0-0.2 [facility] Comment on above: Performed By: #### 5 0103 #### [facility] [address] [place] [address], [facility] Basophils/100 WBC (Bld) 0.7 % Normal 0.0-1.0 [facility] Comment on above: Performed By: #### 5 0103 #### [facility] [address] [facility] [place] [address], [facility] Eosinophils (Bld) [#/Vol] 0.1 10*3/uL Normal 0.0-0.5 [facility] Comment on above: Performed By: #### 5 0103 #### [facility] [address] [facility] [place] [address], [facility] Eosinophils/100 WBC (Bld) 1.6 % Normal 0.0-6.0 [facility] Comment on above: Performed By: #### 5 0103 #### [facility] [address] [facility] [place] [address], [facility] Erythrocyte distribution width (RBC) [Ratio] 12.8 % Normal 11.5-15.0 [facility] Comment on above: Performed By: #### 5 0103 #### [facility] [address] [facility] [place] [address], [facility] Hematocrit (Bld) [Volume fraction] 35.0 % Low 36.0-45.0 [facility] Comment on above: Performed By: #### 5 0103 #### [facility] [address] [facility] [place] [address], [facility] Hemoglobin (Bld) [Mass/Vol] 11.6 g/dL Low 12.0-15.0 [facility] Comment on above: Performed By: #### 5 0103 #### [facility] [address] [place] [id number], [facility] IMMATURE GRANS 0.3 % Normal 0.0-1.[address] [facility] Comment on above: Performed By: #### 5 0103 #### [facility] [address] [place] [address], [facility] Lymphocytes (Bld) [#/Vol] 1.3 10*3/uL Normal 1.2-4.0 [facility] Comment on above: Performed By: #### 5 0103 #### [facility] [address] [facility] [place] [place] [address], [facility] Lymphocytes/100 WBC (Bld) 19.2 % Low 20.0-45.0 [facility] Comment on above: Performed By: #### 5 0103 #### [facility] [address] [facility] [place] [address], [facility] MCH (RBC) [Entitic mass] 31.4 pg Normal 27.0-33.0 [facility] Comment on above: Performed By: #### 5 0103 #### [facility] [address] [facility] [address] MCHC (RBC) [Mass/Vol] 33.1 g/dL Normal 32.0-35.0 [facility] Comment on above: Performed By: #### 5 0103 #### [facility] [address] [facility] [place] [address], [facility] MCV (RBC) [Entitic vol] 94.9 fL Normal 82.0-98.0 [facility] Comment on above: Performed By: #### 5 0103 #### [facility] [address] [facility] [place] [address], [facility] Monocytes (Bld) [#/Vol] 0.6 10*3/uL Normal 0.1-1.0 [facility] Comment on above: Performed By: #### 5 0103 #### [facility] [address] [place] [address], [facility] MONOS 8.4 % Normal 5.0-12.0 [facility] Comment on above: Performed By: #### 5 0103 #### [facility] [address] [facility] [place] [address], [facility] Neutrophils/100 WBC (Bld) 69.8 % Normal 40.0-72.0 [facility] Comment on above: Performed By: #### 5 0103 #### [facility] [address] [facility] [place] [address], [facility] Nucleated RBC/100 WBC (Bld) [Ratio] 0 % Normal 0-0 [facility] Comment on above: Performed By: #### 5 0103 #### [facility] [address] [facility] [place] [address], [facility] PLAT CNT 325 10*3/uL Normal 150-400 [facility] Comment on above: Performed By: #### 5 0103 #### [facility] [address] [place] [address], [facility] RBC (Bld) [#/Vol] 3.69 10*6/uL Low 3.80-5.00 [facility] Comment on above: Performed By: #### 5 0103 #### [facility] [address] [place] [address], [facility] WBC (Bld) [#/Vol] 6.67 10*3/uL Normal 4.00-10.60 [facility] Comment on above: Performed By: #### 5 0103 #### [facility] [address] [place], [place] [id number] [place] [address] CHEST AND LATERALon 03-25-20 21 CHEST AND LATERAL [facility] Department of Radiology [address] [place] [id number] Patient Name: SJ BREWSTER : 1950 Sex: F Age: Race: White Pt. Location: Patient Status: O Ordered Date: 03/25/2021 10:40:00 AM Completed Date: 03/25/2021 10:40 AM Requesting Provider: FELISA HYATT Attending Provider: FELISA HYATT Report Copy To: DONTAE URIBE Signs & Symptoms: I25.10 Athscl heart disease of [place] coronary artery w/o ang pctrs I10 History: Comments: evaluate Exam: CHEST AND LATERAL CHEST AND LATERAL 03/25/2021 10:40 AM CLINICAL INDICATIONS: I25.10 Athscl heart disease of [place] coronary artery w/o ang pctrs I10 TECHNOLOGIST [...] disease. Approved by:Mu Abbott03/25/2021 10:50 AM. I, Jero Germain,have reviewed the image(s) and agree with the findings in this report. Electronically signed: Jero Germain. Transcribed by: [email or web address], User Resident: MU MOSES Electronically Signed by: JEOR GERMAIN @ 03/25/2021 11:41 AM I personally read this/these film(s) with this resident Normal [facility] Comment on above: Order Comment: evalu ate COMP METABOLIC PANELon 03-25 Albumin [Mass/Vol] 4.4 g/dL Normal 3.5-5.7 [facility] Comment on above: Performed By: #### 0 0121 ####[facility] [place] [address], [place] ALKALINE PHOSPH 52 IU/L Normal 34-104 [facility] Comment on above: Performed By: #### 0 0121 ####[facility] [place] [address], [place] ALT [Catalytic activity/Vol] 12 U/L Normal 7-52 [facility] Comment on above: Performed By: #### 0 0121 ####[facility] [place] [address], [place] AST [Catalytic activity/Vol] 13 U/L Normal 13-39 [facility] Comment on above: Performed By: #### 0 0121 ####[facility] [place] [address], [place] Bilirubin [Mass/Vol] 0.3 mg/dL Normal 0.3-1.0 [facility] Comment on above: Performed By: #### 0 0121 ####[facility] [place] [address], [place] Calcium [Mass/Vol] 9.7 mg/dL Normal 8.6-10.3 [facility] Comment on above: Performed By: #### 0 0121 ####[facility] [place] [address], [place] Chloride [Moles/Vol] 104 mmol/L Normal 98-107 [facility] Comment on above: Performed By: #### 0 0121 ####[facility] [place] [address], [place] CO2 [Moles/Vol] 30 mmol/L Normal 21-31 [facility] Comment on above: Performed By: #### 0 0121 ####[facility] [facility] [place] [address], [facility] Creatinine [Mass/Vol] 0.76 mg/dL Normal 0.60-1.20 [facility] Comment on above: Performed By: #### 0 0121 ####[facility] [place] [address], [facility] GFR/1.73 sq M.predicted among blacks MDRD (S/P/Bld) [Vol rate/Area] mL/min/{1.73_m2} Normal >60 [facility] Comment on above: Performed By: #### 0 0121 ####[facility] [place] [address], [facility] GFR/1.73 sq M.predicted among non-blacks MDRD (S/P/Bld) [Vol rate/Area] mL/min/{1.73_m2} Normal >60 [facility] Comment on above: Performed By: #### 0 0121 ####[facility] [facility] [place] [address], [facility] Glucose [Mass/Vol] 112 mg/dL High 70-100 [facility] Comment on above: Performed By: #### 0 0121 ####[facility] [place] [address], [facility] Potassium [Moles/Vol] 5.1 mmol/L Normal 3.5-5.1 [facility] Comment on above: Performed By: #### 0 0121 ####[facility] [facility] [place] [address], [facility] Protein [Mass/Vol] 7.5 g/dL Normal 6.0-8.3 [facility] Comment on above: Performed By: #### 0 0121 ####[facility] Sodium [Moles/Vol] 140 mmol/L Normal 136-145 [facility] Comment on above: Performed By: #### 0 0121 ####[place] [address] [address] Urea nitrogen [Mass/Vol] 10 mg/dL Normal 7-25 [facility] Comment on above: Performed By: #### 0 0121 ####[facility] HEMOGLOBIN A1Con 03-25-2021 Glucose [Moles/Vol] 117 mmol/L Normal [facility] Comment on above: Performed By: #### 3 1791 ####[place] [address] [address] HbA1c (Bld) [Mass fraction] 5.7 % Normal 4.0-6.0 [facility] Comment on above: Performed By: #### 3 1791 ####[address] PROTHROMBIN TIMEon INR Coag (PPP) [Relative time] 1.05 {INR} Normal 0.91-1.16 [facility] Comment on above: Result Comment: [...] 1995;108:231S-246S. Performed By: #### 8 5499 #### [facility] [address] [place] [address], [facility] PT Coag (PPP) [Time] 13.7 s Normal 12.3-14.8 [facility] Comment on above: Result Comment: ALL RESULTS MUST BE INTERPRETED WITH RESPECT TO BLOOD DRAWING ARTIFACT OR DILUTION ERROR OF ANTICOAGULANT AT THE TIME OF SAMPLING. Performed By: #### 8 5499 #### [facility] [address] [place] [address], [facility] TYPE AND CROSSMATCHon 2020 ABO INTERPRETATION A Normal [facility] Comment on above: Performed By: #### 3 0965 #### [facility] [address] [place] [address], [facility] RH INTERPRETATION Negative Normal The [facility] Comment on above: Performed By: #### 3 0965 #### [facility] [address] [place] [address], [facility] URINALYSIS REFLEXon 03-25-20 21 Appearance (U) SL CLOUDY Abnormal CLEAR The [facility] Comment on above: Performed By: #### 3 0965 #### [facility] [address] [place] [address], [place] Bilirubin Ql (U) Negative Normal NEGATIVE [facility] Comment on above: Performed By: #### 3 0965 #### [facility] [address] [place] [address], [place] Color (U) YELLOW Normal YELLOW [facility] Comment on above: Performed By: #### 3 0965 #### [facility] [address] [place] [address], [facility] Glucose Ql (U) Negative Normal NEGATIVE The [facility] Comment on above: Performed By: #### 3 0965 #### [facility] [address] [place] [address], [place] Hemoglobin Ql (U) Negative Normal NEGATIVE The [facility] Comment on above: Performed By: #### 3 0965 #### [facility] [address] [place] [address], [facility] KETONE Negative Normal NEGATIVE The [facility] Comment on above: Performed By: #### 3 0965 #### [facility] [address] [facility] [place] [address], [facility] LEUK KEEGAN Negative Normal NEGATIVE The [facility] Comment on above: Performed By: #### 3 0965 #### [facility] [address] [facility] [place] [address], [facility] MICRO NOT DONE Normal The [facility] Comment on above: Result Comment: Micr oscopics not performed on urines with negative chemical reactions unless requested in original order Performed By: #### 3 0965 #### [facility] [address] [facility] [place] [address], [facility] Nitrite Ql (U) Negative Normal NEGATIVE The [facility] Comment on above: Performed By: #### 3 0965 #### [facility] [address] [facility] [place] [address], [facility] pH (U) 7.0 [pH] Normal 5.0-8.0 The [facility] Comment on above: Performed By: #### 3 0965 #### [facility] [address] [facility] [place] [address], [facility] Protein Ql (U) Negative Normal NEGATIVE The [facility] Comment on above: Performed By: #### 3 0965 #### [facility] [address] SPEC GRAV 1.014 Low 1.015-1.020 The [facility] Comment on above: Performed By: #### 3 0965 #### [facility] [address] Cardiovascular Lab Reporton 03-18-2021 Cardiovascular Lab Report [facility] Patient Name: [facility] Mahi MR #: [id number] Department of Physician: Janay Aj Medicine MDoroteo Division of Service Date: 03/17/2021 Cardiology Birthdate: 1950 Adult Cardiovascular Room #: Services [facility] [address] [place] [address] Cardiovascular Laboratory Report FINAL IMPRESSIONS: 1. 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 2. Normal global left ventricular systolic function. 3. Normal right-sided heart pressures and wedge pressure. 4. Normal cardiac output/cardiac index. Pressured and artery aneurysms. 5. Zyukapyn-ua-momgmu systemic hypertension. RECOMMENDATIONS: 1. Consult Cardiothoracic Surgery for coronary artery bypass graft surgery. 2. Aggressive cardiovascular risk factor modification. 3. Optimization of medical management; aspirin, high-intensity statin therapy, which is not tolerated - will add Zetia and consider addition of a PCSK9 inhibitor, beta mariah, and angiotensin-convertin g enzyme inhibitor. 4. Follow [...] femoral vein and artery was obtained. A 6-Egyptian 11 cm sheath was placed in each. [...] was elected to conclude the procedure. A 6-Egyptian MynxGrip closure device was deployed per protocol [...] moderate-sized branching second diagonal shows a 70% zbemhgry-pc-czq vessel stenosis. Left circumflex coronary artery. This [...] A Janay Aj M.D. Date Dict: 03/17/2021/02:19 Rain Aj M.D. Date Trans: 03/18/2021 02:36 Anjali/refugio [id number] cc: Dontae Uribe D.O. [address] [place] [address] A [facility] [id number] Agustin Valencia D.O. [address] [facility] [address] Normal [facility] Consent for COVID Vaccineon 12-29-2020 SARS-CoV-2 (COVID-19) RNA EDA+probe Ql (Unsp spec) [id number] .00CD:127 Normal [facility] Consent for COVID Vaccineon 12-06-2020 SARS-CoV-2 (COVID-19) RNA EDA+probe Ql (Unsp spec) [id number]# 1.00CD:127 Normal [facility] Consent for Treatmenton 11-18 Consent for Treatment [id number]# 1.00CD:127 [facility] Coding Summary.on 12-04-2020 Coding Summary. CODING DATE: 12/04/2020 FINAL [facility] STATUS: PAYOR: Medicare APC DESCRIPTION 1492 New [...] Sarah Bernal Date Saved: 12/04/2020 03:11 pm [facility] Vital Signs Date Time Vital Sign Value Performing Clinician Facility 12-24-2023 12:32-0400 Body height 168.91 cm [facility] 12-24-2023 12:32-0400 Body mass index (BMI) [Ratio] 18.4 kg/m2 [facility] 12-24-2023 12:32-0400 Body weight 52.61 kg [facility] 12-24-2023 12:32-0400 Diastolic blood pressure 80 mm[Hg] [facility] 12-24-2023 12:32-0400 Heart rate 76 /min [facility] 12-24-2023 12:32-0400 Respiratory rate 12 /min [facility] 12-24-2023 12:32-0400 Systolic blood pressure 182 mm[Hg] [facility] 12-15-2023 13:34-0400 Body height 168.91 cm [facility] 12-15-2023 13:34-0400 Body mass index (BMI) [Ratio] 18.4 kg/m2 [facility] 12-15-2023 13:34-0400 Body weight 52.61 kg [facility] 12-15-2023 13:34-0400 Diastolic blood pressure 80 mm[Hg] [facility] 12-15-2023 13:34-0400 Heart rate 77 /min [facility] 12-15-2023 13:34-0400 Respiratory rate 12 /min [facility] 12-15-2023 13:34-0400 Systolic blood pressure 135 mm[Hg] [facility] 08-16-2023 08:30-0500 Body height 168.91 cm Dontae Ball Other [facility] Other 08-16-2023 08:30-0500 Body mass index (BMI) [Ratio] 18.31 kg/m2 Dontae Ball Other [facility] Other 08-16-2023 08:30-0500 Body weight 52.25 kg Dontae Ball Other [facility] Other 08-16-2023 08:30-0500 Diastolic blood pressure 76 mm[Hg] Dontae Ball Other [facility] Other 08-16-2023 08:30-0500 Respiratory rate 12 /min Dontae Ball Other [facility] Other 08-16-2023 08:30-0500 Systolic blood pressure 155 mm[Hg] Dontae Ball Other [facility] Other 05-12-2023 13:45-0400 Body height 168.91 cm Dontae Ball Other [facility] Other 05-12-2023 13:45-0400 Body mass index (BMI) [Ratio] 18.44 kg/m2 Dontae Ball Other [facility] Other 05-12-2023 13:45-0400 Body weight 52.62 kg Dontae Ball Other [facility] Other 05-12-2023 13:45-0400 Diastolic blood pressure 88 mm[Hg] Dontae Ball Other [facility] Other 05-12-2023 13:45-0400 Respiratory rate 12 /min Dontae Ball Other [facility] Other 05-12-2023 13:45-0400 Systolic blood pressure 138 mm[Hg] Dontae Ball Other [facility] Other 04-22-2023 13:30-0400 Body height 168.91 cm Travis Richter Other [facility] Other 04-22-2023 13:30-0400 Body mass index (BMI) [Ratio] 18.28 kg/m2 Travis Richter Other [facility] Other 04-22-2023 13:30-0400 Body weight 52.16 kg Travis Richter Other [facility] Other 04-22-2023 13:30-0400 Diastolic blood pressure 78 mm[Hg] Travis Richter Other [facility] Other 04-22-2023 13:30-0400 Systolic blood pressure 137 mm[Hg] Travis Richter Other [facility] Other 03-18-2023 09:15-0400 Body height 168.91 cm Dontae Ball Other [facility] Other 03-18-2023 09:15-0400 Body mass index (BMI) [Ratio] 18.25 kg/m2 Dontae Ball Other [facility] Other 03-18-2023 09:15-0400 Body weight 52.07 kg Dontae Ball Other [facility] Other 03-18-2023 09:15-0400 Diastolic blood pressure 77 mm[Hg] Dontae Ball Other [facility] Other 03-18-2023 09:15-0400 Respiratory rate 12 /min Dontae Ball Other [facility] Other 03-18-2023 09:15-0400 Systolic blood pressure 145 mm[Hg] Dontae Ball Other [facility] Other 04-21-2022 15:15-0400 Body height 168.91 cm Travis Richter Other [facility] Other 04-21-2022 15:15-0400 Body mass index (BMI) [Ratio] 18.28 kg/m2 Travis Richter Other [facility] Other 04-21-2022 15:15-0400 Body weight 52.16 kg Travis Richter Other [facility] Other Encounters Encounter Date Encounter Type Care Provider Facility Start: 01-05-2024 End: 01-05-2024 [facility] Start: 12-24-2023 End: 12-24-2023 ambulatory [facility] Work Phone: Start: 12-24-2023 End: 12-24-2023 Patient encounter procedure [facility] Physician [facility] Work Phone: Start: 12-22-2023 End: 12-22-2023 ambulatory [facility] Work Phone: Start: 12-22-2023 End: 12-22-2023 Patient encounter procedure [facility] Physician [facility] Work Phone: Start: 12-15-2023 End: 12-15-2023 ambulatory [facility] Work Phone: Start: 12-15-2023 End: 12-15-2023 Patient encounter procedure [facility] Physician [facility] Work Phone: Start: 12-15-2023 End: 12-15-2023 [facility] Start: 12-15-2023 Non-patient / Non-visit [facility] Physician [facility] Work Phone: Start: 12-08-2023 End: 12-08-2023 ambulatory [facility] Work Phone: Start: 12-08-2023 End: 12-08-2023 Patient encounter procedure [facility] Physician [facility] Work Phone: Start: 12-07-2023 Non-patient / Non-visit [facility] Physician [facility] Work Phone: Start: 12-01-2023 End: 12-01-2023 Patient encounter procedure [facility] Physician [facility] Work Phone: Start: 11-30-2023 End: 11-30-2023 Patient encounter procedure [facility] Physician [facility] Work Phone: Start: 11-26-2023 Non-patient / Non-visit [facility] Physician [facility] Work Phone: Start: 11-23-2023 Non-patient / Non-visit [facility] Physician [facility] Work Phone: Start: 08-19-2023 End: 08-19-2023 ambulatory Dontae Uribe Other [facility] Other Start: 08-19-2023 Telephone encounter Dontae Uribe [facility] Start: 08-16-2023 End: 08-16-2023 ambulatory Dontae Uribe Other [facility] Other Start: 08-16-2023 Patient encounter procedure Dontae Uribe [facility] Start: 05-27-2023 End: 05-27-2023 ambulatory Dontae Uribe Other [facility] Other Start: 05-27-2023 Telephone encounter Dontae BANUELOS [facility] Start: 05-12-2023 End: 05-12-2023 ambulatory Dontae Uribe Other [facility] Other Start: 05-12-2023 Office outpatient visit 15 minutes Dontae Uribe [facility] Start: 04-22-2023 End: 04-22-2023 ambulatory Travis Richter Other [facility] Other Start: 04-22-2023 Office outpatient visit 15 minutes Travis Richter [facility] Start: 03-18-2023 End: 03-18-2023 ambulatory Dontae Uribe Other [facility] Other Start: 03-18-2023 Office outpatient visit 15 minutes Dontae Uribe [facility] Start: 03-12-2023 End: 03-12-2023 ambulatory Dontae Uribe Other [facility] Other Start: 03-12-2023 Office outpatient visit 15 minutes Dontae Uribe [facility] Start: 03-09-2023 End: 03-09-2023 ambulatory Dontae Uribe Other [facility] Other Start: 03-09-2023 Telephone encounter Dontae Uribe [facility] Start: 01-14-2023 End: 01-14-2023 ambulatory Dontae Uribe Other [facility] Other Start: 01-14-2023 Telephone encounter Dontae Uribe [facility] Start: 01-11-2023 End: 01-11-2023 ambulatory Dontae Uribe Other [facility] Other Start: 01-11-2023 Office outpatient visit 15 minutes Dontae Uribe [facility] Start: 11-24-2022 End: 11-25-[address] DONTAE URIBE Facility:[facility] Start: 10-16-2022 End: 10-16-2022 ambulatory Dontae Uribe Other [facility] Other Start: 10-16-2022 Office outpatient visit 15 minutes Dontae Uribe [facility] Start: 10-16-2022 Telephone encounter Dontae Uribe [facility] Start: 10-06-2022 End: 10-07-2022 ambulatory TOMÁS DAS Facility:[facility] Start: 09-15-2022 Adult health examination Dontae Uribe Other [facility] Other Start: 07-03-2022 ambulatory TOMÁS PIPPA Facility:[facility] Start: 04-21-2022 End: 04-21-2022 ambulatory Travis Richter Other [facility] Other Start: 04-21-2022 Office outpatient visit 15 minutes Travis Neelam [facility] Start: 04-14-2022 End: 04-15-[address] JANAY AJ Facility:[facility] Start: 03-05-2022 End: 03-06-[address] JANAY AJ Facility:[facility] Start: 11-27-2021 End: 11-28-[address] DONTAE URIBE Facility:[facility] Start: 04-02-2021 End: 04-06-2021 Evaluation and management of inpatient FELISA MASROOR Facility:[facility] Start: 03-25-2021 End: 03-26-2021 ambulatory FLEISA MASROOR Facility:[facility] Start: 03-17-2021 End: 03-18-2021 ambulatory AB Anjali AJ Facility:[facility] Procedures Date Procedure Procedure Detail Performing Clinician [...] MASROOR Start: 03-25-2021 Antibody screen FELISA M ASROOR Comment on above: Performed By: #### 3 0965 #### [address] Coronary artery bypa ss graft Dontae Uribe Other Depression screening Kushal Uribe Other Screening for malign ant neoplasm of breast Dontae Uribe Other Plan of Treatment Date Care Activity Detail Author XR Lumbar spine Views [facility] XR Pelvis and Hip - bilateral Views [facility] Immunizations Immunization Date Immunization Notes Care Provider Fa cility 07-27-2023 influenza virus vaccine, unspecified formulation [facility] 07-27-2023 influenza, high dose seasonal, preservative-free Dontae Uribe Other [facility] Other 09-17-2021 COVID-19 Vaccine Pfi zer - Documentation Purposes Only Dontae Uribe Other [facility] 08-29-2021 COVID-19 mRNA-1273 (Moderna) [facility] 12-20-2020 COVID-19 mRNA, Comirnaty (Pfizer) [facility] 11-29-2020 COVID-19 mRNA, Comirnaty (Pfizer) [facility] 01-14-2018 diphtheria, tetanus toxoids and acellular pertussis vaccine, unspecified formulation Dontae Uribe Other [facility] Payers Date Payer Category Payer Medicare [id number] 1958 Self-pay [id number] 1958 Unknown [id number] 1950 Unknown [id number] 2.16.8 [id number] 1950 Unknown [id number] 2.16.8 [id number] 1950 Unknown [id number] 2.16.8 [id number] 1950 Unknown [id number] 2.16.84 [id number] 1950 Unknown [id number] 2.16.84 [id number] 1950 Unknown [id number] 2.16.84 [id number] 1950 Unknown [id number] 2.16.84 [id number] Self-pay Self Pay [id number] Unknown [id number] 2.16.84 [id number] Unknown [id number] 2.16.84 [id number] Unknown [facility] [id number] 48 [id number] Social History Date Type Detail Facility Unknown if ever smoked [facility] Other Sex Assigned At Sex Assigned At Bir th [facility] Other Start: 03-10-2022 Tobacco smoking status NHIS Ex-smoker (finding) [facility] Start: 1950 Sex Assigned At Female F [facility] Clinical Notes 09-20-2012 to 01-05-2024 Note Date & Type Note Facility 01-05-2024 Note [facility] Cardiology Clinic Note Chief Complaint: Patient here to discuss recent stress test and echo. She is still wearing 30 day event monitor. Says she had chest pressure during the stress test so PCP started her on amlodipine 2.5mg for possible small vessel disease . She stopped taking it because it made her feel like she was going to kiss the floor . HPI: Sj Brewster is a 73 y.o. female with a history of coronary artery disease, dyslipidemia and hypertension here in routine follow-up The patient has been having worsening exertional fatigue, shortness of breath both at rest and with exertion, and generally not feeling well since July. This has been progressively worsening. She has also noticed significant palpitations every other day. This can lead to heart rates in the 140s per her description. She did have postoperative atrial fibrillation but a monitor thereafter showed no recurrent arrhythmias. She denies chest pain. She has had no orthopnea or paroxysmal tunnel dyspnea. She has no lower extremity edema. She has not put on any unintentional weight. She had a respiratory illness in May and a sinus infection in September. She denies recent fevers or chills. She has had no cough or expectoration UPDATE 01/05/2024 Feeling about the same; main symptoms appear to be fatigue and infrequent palpitations He has occasional chest twinge. Denies significant shortness of breath. No orthopnea, no paroxysmal: Dyspnea. No lower extremity edema. Cardiology ROS: Review of Systems Constitutional: Positive for malaise/fatigue. Cardiovascular: Positive for chest pain, dyspnea on exertion and palpitations. Respiratory: Positive for shortness of breath. Neurological: Positive for light-headedness. All other systems reviewed and are negative. [...] Father Alzheimer's disease Father Allergies Cephalosporins, Penicillins, Wwopuqd-qtm-vrz reductase inhibitors, and Ciprofloxacin Medications Current Outpatient [...] the skin every 30 (thirty) days., Disp: 6 mL, Rfl: 3 ezetimibe (Zetia) 10 mg tablet, Take 1 tablet (10 mg) by mouth once daily as directed., Disp: 90 tablet, Rfl: 3 furosemide (Lasix) 20 mg tablet, Take 1 tablet (20 mg) by mouth in the morning., Disp: 90 tablet, Rfl: 3 losartan (Cozaar) 25 mg tablet, TAKE ONE TABLET BY MOUTH ONCE DAILY, Disp: 90 tablet, Rfl: 3 Last Recorded Vitals BP 150/78 (BP Location: Left arm, Patient Position: Sitting) Pulse 77 Ht 1.676 m (5' 6 ) Wt 52.2 kg (115 lb) SpO2 97% BMI 18.56 kg/m??? Physical Examination: GENERAL: alert and oriented x3, [...] PSYCH: appropriate mood, affect, and judgement. Investigations: Investigations: Labs 10/06/2022: LFTs normal Total cholesterol 131, HDL 56, triglycerides 156, LDL 43.8 Operative report 04/02/2021: Preoperative diagnosis: Coronary artery disease Postoperative diagnosis: Coronary artery disease Operation: 1. Coronary artery bypass grafting x 5; CAT to LAD, saphenous vein graft to diagonal branch, saphenous vein graft obtuse marginal branch, saphenous vein graft to posterior descending artery and right posterolateral ventricular branches 2. Extra complexity because of very fragile aorta requiring saphenous vein patch repair of aortotomy 3. Endoscopic vein harvesting of (more content not included)... [facility] 12-15-2023 Note [facility] Cardiology Clinic Note Chief Complaint: Patient here for 1 year follow up CAD and hypertension. Had routine labs last week. Denies chest pain and LE edema. She's been having intermittent episodes of SOB and racing HR - into the 140's. Still does phase 3 cardiac rehab 3 times a week. HPI: Sj Brewster is a 73 y.o. female with a history of coronary artery disease, dyslipidemia and hypertension here in routine follow-up The patient has been having worsening exertional fatigue, shortness of breath both at rest and with exertion, and generally not feeling well since July. This has been progressively worsening. She has also noticed significant palpitations every other day. This can lead to heart rates in the 140s per her description. She did have postoperative atrial fibrillation but a monitor thereafter showed no recurrent arrhythmias. She denies chest pain. She has had no orthopnea or paroxysmal tunnel dyspnea. She has no lower extremity edema. She has not put on any unintentional weight. She had a respiratory illness in May and a sinus infection in September. She denies recent fevers or chills. She has had no cough or expectoration Cardiology ROS: Review of Systems Constitutional: Positive for malaise/fatigue. Cardiovascular: Positive for dyspnea on exertion and palpitations (racing). Respiratory: Positive for shortness of breath. Neurological: Positive for light-headedness. All other systems reviewed and are negative. [...] Father Alzheimer's disease Father Allergies Cephalosporins, Penicillins, Rnlvoja-svn-qle reductase inhibitors, and Ciprofloxacin Medications Current Outpatient [...] the skin every 30 (thirty) days., Disp: 6 mL, Rfl: 3 ezetimibe (Zetia) 10 mg tablet, Take 1 tablet (10 mg) by mouth once daily as directed., Disp: 90 tablet, Rfl: 3 furosemide (Lasix) 20 mg tablet, Take 1 tablet (20 mg) by mouth in the morning., Disp: 90 tablet, Rfl: 3 losartan (Cozaar) 25 mg tablet, TAKE ONE TABLET BY MOUTH ONCE DAILY, Disp: 90 tablet, Rfl: 3 Last Recorded Vitals BP 150/84 (BP Location: Left arm, Patient Position: Sitting) Pulse 71 Ht 1.676 m (5' 6 ) Wt 52.2 kg (115 lb) SpO2 98% BMI 18.56 kg/m??? Physical Examination: GENERAL: alert and oriented x3, [...] 131, HDL 56, triglycerides 156, LDL 43.8 Operative report 04/02/2021: Preoperative diagnosis: Coronary artery disease Postoperative diagnosis: Coronary artery disease Operation: 1. Coronary artery bypass grafting x 5; CAT to LAD, saphenous vein graft to diagonal branch, saphenous vein graft obtuse marginal branch, saphenous vein graft to posterior descending artery and right posterolateral ventricular branches 2. Extra complexity because of very fragile aorta requiring saphenous vein patch repair of aortotomy 3. Endoscopic vein harvesting of the left greater saphenous vein Surgeon: Felisa Hyatt MD Echocardiogram 06/03/2021: Global left ventricular systolic function is normal; visually estimated ejection fraction is 55 to 60%. Mild concentric left ventricular hypertrophy. Normal diastolic function. Right atrium is mildly dilated. The right ventricle is normal (more content not included)... 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 Jul, Pure hypercholesterolemia (ICD-10 - E78.00) Instructed [...] High risk medication use (ICD-10 - Z79.899) [facility] Other 09-07-2023 Evaluation note* Encounter Date Diagnosis Assessment Notes Treatment Notes Treatment Clinical Notes May, Acute cough (ICD-10 - R05.1) [facility] Other 08-23-2023 Evaluation note* Encounter Date Diagnosis [...] 135/85 May be increased due to pain [facility] Other 08-03-2023 Evaluation note* Encounter Date Diagnosis [...] is taking OTC probiotics RTO 1 year [facility] Other 06-29-2023 Evaluation note* Encounter Date Diagnosis [...] quality. Continue LABA/ICS and SHERLYN as needed [facility] Other 06-23-2023 Evaluation note* Encounter Date Diagnosis [...] SHERLYN to q 4 hours as needed [facility] Other 06-20-2023 Evaluation note* Encounter Date Diagnosis Assessment Notes Treatment Notes Treatment Clinical Notes Feb, Mild intermittent asthma with acute exacerbation (ICD-10 - J45.21) [facility] Other 04-27-2023 Evaluation note* Encounter Date Diagnosis Assessment Notes Treatment Notes Treatment Clinical Notes Dec, Acute non-recurrent maxillary sinusitis (ICD-10 - J01.00) [facility] Other 04-24-2023 Evaluation note* Encounter Date Diagnosis [...] or severe dyspnea. Restart Prednisone as needed [facility] Other 01-27-2023 Evaluation note* Encounter Date Diagnosis [...] to continue exercise and AHA diet plan. [employer] Other 01-27-2023 Evaluation note* Encounter Date Diagnosis Assessment Notes Treatment Notes Treatment Clinical Notes Sep, Acute non-recurrent maxillary sinusitis (ICD-10 - J01.00) [employer] Other 08-02-2022 Evaluation note* Encounter Date Diagnosis Assessment Notes Treatment Notes Treatment Clinical Notes Apr, Dysphagia (ICD-10 - R13.10) Apr, Schatzki's ring (ICD-10 - Q39.4) Apr, Constipation (ICD-10 - K59.00) CONTINUE MIRALAX PRN CONTINUE COLACE WITHOUT CHANGE RTO ONE YEAR Apr, Abdominal pain (ICD-10 - R10.9) CONTINUE BENTYL WITHOUT CHANGE [employer] Other 08-18-2021 NoteMR#: [id number] I [facility] Pt. Name: Sj Brewster Admitted: 04/02/2021 Discharged: 04/06/2021 Date of [...] postoperative day #1, she was started on beta-mariah therapy, dual anti-platelet therapy, and statins. Epicardial [...] Shoemaker CNP Date Trans: 05/07/2021 03:44 P/refugio [id number] cc: Dontae Uribe D.O. [address] [place] [address] A [facility] [id number] History general Narrative - Reported* [...] History Total Hysterectomy 1979 Hospitalization History Appendectomy 1969 [facility] Other Evaluation noteNo InformationNortUniversity [facility] Other Evaluation note* Diagnosis Onset Date Resolution Status Mild persistent asthma with acute exacerbation acute Acute sinusitis noneactive [facility] Work Phone: Evaluation note* Diagnosis Onset Date Resolution Status Mild persistent asthma with acute exacerbation acute Acute sinusitis noneactive ASHD (arteriosclerotic heart disease) acute Asthma acute Gastroesophageal reflux dise ase with esophagitis without hemorrhage acute Hyperlipidemia type II acute Paroxysmal atrial fibrillation acute [facility] Work Phone: Evaluation note* Diagnosis Onset Date Resolution Status Mild persistent asthma with acute exacerbation acute Acute sinusitis noneactive ASHD (arteriosclerotic heart disease) acute Asthma acute Gastroesophageal reflux dise ase with esophagitis without hemorrhage acute Hyperlipidemia type II acute Paroxysmal atrial fibrillation acute Pernicious anemia acute [facility] Work Phone: History general Narrative - Reported* Type Description [...] Medical History Mild intermittent asthma with ac [place] exacerbation Medical History Eczema, dyshidrotic Medical History [...] Total Hysterectomy 1978 Hospitalization History Appendectomy 1968 [employer] Other History general Narrative - Reported* Type [...] Medical History Mild intermittent asthma with ac [place] exacerbation Medical History Eczema, dyshidrotic Medical History [...] Total Hysterectomy 1978 Hospitalization History Appendectomy 1968 [employer] Other Summary Purpose Family History No Family History Records Found Relationship Condition Age at Onset Recorded Date/T jeanne Not Specified Myocardial infarction Unknown father Myocardial infarction Unknown father Unknown Not Specified Unknown Advance Directives No Advanced Directives Records Found Advance Directive Response Recorded Date/ Time Advance Directives No June 24, 2017 2:52pm Chief Complaint and Reason for Visit Chief Complaint Amb Documentation sinuses- [phone] B-12 Shot B-12 Shot Reason for Visit Mild persistent asth ma with acute exacerbation Acute sinusitis Chief Complaint Amb Documentation sinuses- [phone] B-12 Shot B-12 Shot 4 month follow up Reason for Visit Mild persistent asth ma with acute exacerbation Acute sinusitis ASHD (arteriosclerotic heart disease) Asthma Gastroesophageal reflux disease with esophagitis without hemorrhage Hyperlipidemia type II Paroxysmal atrial fibrillation Chief Complaint Amb Documentation sinuses- [phone] B-12 Shot B-12 Shot 4 month follow up B-12 SHOT Reason for Visit Mild persistent asth ma with acute exacerbation Acute sinusitis ASHD (arteriosclerotic heart disease) Asthma Gastroesophageal reflux disease with esophagitis without hemorrhage Hyperlipidemia type II Paroxysmal atrial fibrillation Pernicious anemia Chief Complaint Amb Documentation sinuses- [phone] B-12 Shot B-12 Shot 4 month follow up B-12 SHOT test results Reason for Visit Mild persistent asth ma with acute exacerbation Acute sinusitis ASHD (arteriosclerotic heart disease) Asthma Gastroesophageal reflux disease with esophagitis without hemorrhage Hyperlipidemia type II Paroxysmal atrial fibrillation Pernicious anemia Additional Source Comments INFORMATION SOURCE (unrecogn ized section and content) DATE CREATED AUTHOR 03/22/2021 [facility] DATE CREATED AUTHOR AUTHOR'S ORGANIZ ATION 05/09/2021 [facility] DATE CREATED AUTHOR AUTHOR'S ORGANIZ ATION 03/12/2022 [facility] DATE CREATED AUTHOR AUTHOR'S ORGANIZ ATION 11/26/2022 [facility] DATE CREATED AUTHOR AUTHOR'S ORGANIZ ATION 01/06/2024 [facility] REASON FOR VISIT (unrecogniz ed section and content) PATIENT HERE FOR FOLLOW UP T O EGD ON 03/10/2022 FOR DYSPHAGIA., SHE STOPPED LINZESS DUE TO COST, SHE IS HAPPY ON MIRALAX AND COLACE AND HER BOWELS ARE MOVING NORMALLYsinus congestionNo InformationSinuses- [phone], drainage, thick yellow mucus, left ear painmigraine, not feeling well sincemigraine, not feeling well sincePatient here for 1 yr follow upSciatic Nerve-LegNot Feeling BetterMedicare WellnessLab results Care Teams (unrecognized sec tion and content) Team Status: Active Member Role Status Dates Dontae Uribe DO Primary Care Provider Active Team Status: Active Member Role Status Dates Dontae Uribe DO Primary Care Provider Active Start: November 23, 2023 POLLY Reece Attending Provider Active St art: November 23, 2023 Team Status: Active Member Role Status Dates Dontae Ball , DO Primary Care Provide r, Attending Provider Active Start: November 26, 2023 Team Status: Inactive Member Role Status Renate Uribe , DO Primary Care Provide r, Attending Provider Active Start: November 30, 2023 End: November 30, 2023 Team Status: Inactive Member Role Status Renate Uribe , DO Primary Care Provide r, Attending Provider Active Start: December 01, 2023 End: December 01, 2023 Team Status: Active Member Role Status Renate Uribe , DO Primary Care Provide r, Attending Provider Active Start: December 07, 2023 Team Status: Inactive Member Role Status Renate Uribe , DO Primary Care Provide r, Attending Provider Active Start: December 08, 2023 End: December 08, 2023 Team Status: Active Member Role Status Renate Uribe , DO Primary Care Provide r, Attending Provider Active Start: December 15, 2023 Team Status: Inactive Member Role Status Renate Uribe , DO Primary Care Provide r, Attending Provider Active Start: December 15, 2023 End: December 15, 2023 Team Status: Inactive Member Role Status Renate Uribe , DO Primary Care Provide r, Attending Provider Active Start: December 22, 2023 End: December 22, 2023 Team Status: Inactive Member Role Status Renate Uribe , DO Primary Care Provide r, Attending Provider Active Start: December 24, 2023 End: December 24, 2023 Goals (unrecognized section and content) Goals may be documented in a n alternate section FOR RECORDS PERTAINING TO PATIENTS WHO ARE [...] BE BASED ON THE PRIMARY CLINICAL RECORDS. [facility] [email or web address] provides no warranty or guarantee of the accuracy or completeness of information in this document.
--- NOTE | 2024-01-28 07:31 | MR_ITS ---
The [address] [address] Patient Name: SJ HALL MRN: [id number] date: 1950 Sex: F Assigned Patient Location: MRI Current Patient Location: MRI Accession/Order Number: [id number] Exam Date: 01/28/2024 08:00 Report Date: 01/28/2024 10:33 At the request of: ABEL ROLAND Procedure: MR head/brain wo con MR head/brain wo con, 01/28/2024 8:00 AM EDT INDICATION: Carotid Bruit, Headache, Dizziness COMPARISON: There is no appropriate prior study for comparison. TECHNIQUE: Multiplanar, multisequential MRI images of brain were obtained without injection of contrast. FINDINGS: The cerebral sulci as well as ventricular system are appropriate for age. There is no restricted diffusion. There is no intracranial mass, mass effect, midline shift, intra or extra-axial fluid collection or large hemorrhage. Hyperintensities on T2 and FLAIR images in the bren and fan radiata and centrum semiovale with sparing of U fibers are nonspecific, statistically most likely consistent with moderate microvascular ischemic changes. 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 Normal flow-void in the intracranial vessels is noted. The visualized portions of orbits, mastoid air cells as well as paranasal sinuses are unremarkable. MR/MR head/brain wo con IMPRESSION: No acute intracranial process is noted. Electronically authenticated by: AVERY RIVERA Date: 01/28/2024 10:33
[2024-01-28 07:32] LABS: Erythrocyte Sedimentation Rate 21 mm/hr (<=30)
== END 2024-01-28 07:11 | disposition home or self-care (01) ==
LOC: MRI 07:10
PROVIDERS: PCP Internal Medicine; Visit Provider Internal Medicine
DX: R09.89 Other specified symptoms and signs involving the circulatory and respiratory systems (principal); R51.9 Headache, unspecified; R42 Dizziness and giddiness
CPT/HCPCS: 36415; 70551; 85652

== ENCOUNTER 2024-01-29 13:31 | Outpatient (OUT) | payer MEDICARE, SELFPAY ==
--- NOTE | 2024-01-29 | US_ITS ---
[place] [id number] Patient Name: SJ HALL MRN: [id number] date: 1950 Sex: F Assigned Patient Location: US Current Patient Location: US Accession/Order Number: [id number] Exam Date: 01/29/2024 14:10 Report Date: 01/29/2024 17:35 At the request of: ABEL ROLAND Procedure: US carotid duplex BI EXAMINATION: US carotid duplex BI HISTORY: HEADACHE, DIZZINESS, CATOTID BRULT COMPARISON: No relevant comparison available. TECHNIQUE: Duplex Doppler ultrasound analysis of carotid and vertebral arteries. . Bilateral carotid arterial duplex examination was performed using B-mode, color flow and spectral analysis. Carotid stenosis is reported according to validated velocity parameters, similar to NASCET criteria. FINDINGS: RIGHT CAROTID ARTERY Moderate atherosclerotic plaque, maximum area of reduction 59% in the right carotid bulb Subclavian: PSV: 70.6 cm/s cm/s EDV: 3.4 cm/s cm/s CCA: Prox: PSV: 95.1 cm/s cm/s EDV: 13.7 cm/s cm/s Mid: PSV: 69.3 cm/s cm/s EDV: 12.4 cm/s cm/s Distal: PSV: 56.4 cm/s cm/s EDV: 11.1 cm/s cm/s BULB: PSV: 49.9 cm/s cm/s EDV: 9.8 cm/s cm/s ICA: Prox: PSV: 89.9 cm/s cm/s EDV: 22.7 cm/s cm/s Mid: PSV: 95.1 cm/s cm/s EDV: 13.7 cm/s cm/s ECA: PSV: 59.8 cm/s cm/s EDV: 0.0 cm/s cm/s VERTEBRAL: PSV: 40.4 cm/s cm/s EDV: 8.0 cm/s cm/s, antegrade ICA/CCA ratio: PSV: 1.7 EDV: 1.2 LEFT CAROTID ARTERY mild atherosclerotic plaque Subclavian: PSV: 157.1 cm/s cm/s EDV: 6.0 cm/s CCA: Prox: PSV: 105.9 cm/s cm/s EDV: 20.0 cm/s Mid: PSV: 98.9 cm/s cm/s EDV: 17.6 cm/s Distal: PSV: 83.4 cm/s cm/s EDV: 18.4 cm/s BULB: PSV: 102.0 cm/s cm/s EDV: 18.4 cm/s ICA: Prox: PSV: 71.3 cm/s cm/s EDV: 16.4 cm/s Mid: PSV: 79.0 cm/s cm/s EDV: 17.5 cm/s ECA: PSV: 85.6 cm/s cm/s EDV: 0.0 cm/s VERTEBRAL: PSV: 35.0 cm/s cm/s EDV: 9.8 cm/s , antegrade ICA/CCA ratio: PSV: 0.9 EDV: 1.0 US/US carotid duplex BI IMPRESSION: 0-49% flow stenosis right internal carotid artery with maximum area of reduction 59% in the carotid bulb 0-49% stenosis left internal carotid artery Spectral Doppler US Thresholds (Reference: Keshav EG, et al. Radiology 2000; 214:247-252) Stenosis (%) PSV (cm/sec) VICA/VCCA 0-49 <150 <2.5 50-69 150-225 2.5-4.0 >70 >225 >4.0 Electronically authenticated by: EVAN OQUENDO Date: 01/29/2024 17:35
--- OUTSIDE RECORDS SUMMARY | 2024-01-29 13:34 | XMS_ITS | CCD ---
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 Name Role Phone FELISA HYATT Attending Unavailable DONTAE URIBE Primary Care Unavailable RONY, DONTAE Referring Unavailable ERIROOR, FELISA Admitting Unavailable ERIROORFELISA Attending Unavailable RONY, DONTAE Primary Care Unavailable RONY, DONTAE Referring Unavailable ERIROOR, FELISA Admitting Unavailable MASROOR, FELISA Surgeon Unavailable NM Procedure Practitioner Unavailab le ELTAHAWY, EHAB A Admitting Unavailable ELTAHAWY, EH A Attending Unavailable RONY, DONTAE Primary Care Unavailable RONY, DONTAE Referring Unavailable Travis Richter Unavailable [phone] Dontae Uribe Unavailable PIPPA, TOMÁS Admitting Unavailable [...] (4 sources) black walnut pollen extract; Translations: [GONCHPR-HHL-DWC REDUCTASE INHIBITORS] Drug Allergy 11-11-20 09 [place] [facility] (9 sources) Cephalosporins (Antibiotic); Translations: [CEPHALOSPORINS] Drug allergy (disorder) 07-31-20 09 Rash [place] [facility] (1 source) Ciprofloxacin; Translations: [CIPRO] Drug Allergy 03-27-20 21 [facility] Repository (9 sources) Penicillins; Translations: [PENICILLINS] Drug allergy (disorder) 07-31-20 09 Rash [place] [facility] (12 sources) Hmg-Coa Reductase Inhibitors (Statins) Propensity to adverse reactions SWELLING [employer] Other (12 sources) Pcn, Cephalasporins Propensity to adverse reactions (Eriberto) 10/07/2012 [employer] Other (19 sources) Ciprofloxacin; Translations: [CIPROFLOXACIN] Drug Allergy 08-30-20 13 Unknown, Rash [facility] (13 sources) Substance with sulfonamide structure and antibacterial mechanism of action (substance) Drug allergy Unknown [employer] Other (2 sources) Sulfonamides (Antibiotic) Drug allergy (disorder) 06-23-20 13 [facility] Repository (6 sources) HMG-CoA reductase inhibitor Drug allergy Unknown [employer] Other (6 sources) Penicillin G Benzathine & Proc Drug allergy 01-15-20 18 Unknown [employer] Other (4 sources) Statins Support *DIETARY PRODUCTS/DIETARY MANAGEME Propensity to adverse reactions 01-15-20 18 Unknown [employer] Other (1 source) Substance with penicillin structure and antibacterial mechanism of action (substance) Drug allergy Unknown [employer] Other (6 sources) Medicinal cephalosporin and acting as antibacterial agent (FN) Drug allergy 01-15-20 18 Unknown [employer] Other (1 source) patient allergy list reviewed by nurse or physicia Propensity to adverse reactions 01-15-20 18 Comment:Done [employer] Other (5 sources) Cefaclor Drug Allergy 03-10-20 22 [facility] (5 sources) Penicillin G Benzathine Allergy to substance 08-16-20 23 Unknown Reaction [facility] (5 sources) Sulfonamides (Antibiotic) Allergy to substance 08-16-20 23 [facility] (5 sources) [id number]-[id number] Reductase Inhibitor Allergy to substance 08-16-20 Joint Pain [facility] Medications Current Medications Medication Drug Class(es) Dates Sig (Normalized) Sig (Original) [id number] 200 actuat albuterol 0.09 mg/actuat metered dose inhaler (18 sources) beta2-Adrenergic Agonist Start: 11-30-2023 take 1 puff(s) by inhalation every four hours Albuterol Sulfate Active 1 PUFF INHALATION Every 4 hours November 30, 2023 12:00am take 1 puff(s) by in halation every four hours as needed Albuterol Sulfate HFA 108 (90 Base) MCG/ACT 1 puff as needed Inhalation every 4 hrs Active amLODIPine 2.5 mg oral tablet (20 sources) Dihydropyridine Calcium Channel Karmen Start: 12-24-2023 take 2.5 mg by mouth once daily Amlodipine Active 2.5 MG PO Daily December 24, 2023 12:00am Start: 07-07-2017 End: 03-10-2022 take 1 tablet by mouth once daily Amlodipine Discontinued 1 TAB PO Daily July 07, 2017 12:00am March 10, 2022 9:44am aspirin 81 mg delayed release oral tablet (19 sources) Platelet Aggregation Inhibitor, Nonsteroidal Anti-inflammatory Drug Start: 07-07-2017 take 1 tablet by mouth once daily Aspirin (Aspir-Low) 81 mg Tablet,Delayed Release (Dr/Ec) Active 1 TAB PO Daily July 07, 2017 12:00am take 2 tablets by [facility] every twenty-four hours Aspirin 81 MG 2 [...] Orally DAILY for 5 days Not-Taking Calcium (5 sources) Phosphate Binder, Calcium Start: 11-30-2023 take 1 tablet by mouth once daily [id number] (Caltrate 600-D Plus Minerals) 600 mg calcium- 800 unit-50 mg tablet Active 1 TAB PO Daily November 30, 2023 12:00am Caltrate 600+D Plus Minis (13 sources) Caltrate 600+D P dung Minis Active carvedilol 25 mg oral tablet (20 sources) alpha-Adrenergic Karmen, beta-Adrenergic Karmen Start: 03-10-2022 take 25 mg by mouth [...] 1 ml evolocumab 140 mg/ml prefilled syringe (19 sources) PCSK9 Inhibitor Start: 03-10-2022 Evolocumab (Repatha Syringe) 140 mg/mL Syringe Active 140 MG SUBCUT EVERY 2 WEEKS March 10, 2022 12:00am inject 1 mL by subcu taneous injection every month Repatha 140 MG/ML 1 mL Subcutaneous ONCE A MONTH Active Repatha Active ezetimibe 10 mg oral tablet (19 sources) Dietary Cholesterol Absorption Inhibitor Start: 03-10-2022 take 1 tablet by mouth once daily Ezetimibe (Zetia) 10 mg Tablet Active 10 MG PO Daily March 10, 2022 12:00am Zetia Active furosemide 20 mg oral tablet (12 sources) Loop Diuretic Start: 11-30-2023 take 1 tablet by mouth once daily Furosemide (Lasix) 20 mg tablet Active 20 MG PO Daily November 30, 2023 12:00am take 1 tablet by lucita th every twenty-four hours Lasix 20 MG 1 tablet Orally Once a day Active linaclotide 0.145 mg oral capsule (19 sources) Guanylate Cyclase-C Agonist Start: 01-09-2014 take 1 tablet by mouth once daily Linaclotide Active 1 TAB PO Daily July 07, 2017 12:00am losartan potassium 25 mg oral tablet (19 sources) Angiotensin 2 Receptor Karmen Start: 03-10-2022 take 25 mg by mouth once daily Losartan Active 25 MG PO Daily March 10, 2022 12:00am Losartan Potassi um Active nitroglycerin 0.4 mg sublingual tablet (2 sources) Nitrate Vasodilator Start: 12-24-2023 Nitroglyce rin Active [...] day before your procedure for 1 days BIN:[id number] PCN: [id number] ID:[id number] Nov, Not-Taking predniSONE 1 mg/ml oral solution [...] hours as needed take 1 tablet by lcuita th every six hours as needed Tylenol Extra Strength 500 MG 1 tablet a s needed Orally every 6 hrs Not-Taking Completed/Discontinued Medications Medication Drug Class(es) Dates Sig (Normalized) Sig (Original) acetaminophen 500 mg oral tablet (5 sources) Start: 07-07-2017 End: 03-10-2022 take 1 tablet by mouth every six [...] Not-Taking docusate sodium 100 mg oral capsule (19 sources) Start: 07-07-2017 End: 03-10-2022 take 1 [...] Translations: [Unspecified chronic bronchitis] Onset: 8 Chronic Conditions associated with dizziness or vertigo (2 sources) Dizziness; Translations: [Dizziness and giddiness] 01-25-2024 Episodic Coronary atherosclerosis and other heart disease (20 sources) Coronary arteriosclerosis; Translations: [Atherosclerotic heart disease of [place] coronary artery without angina pectoris] Onset: 0 Resolved: 2 Chronic Coronary atherosclerosis and other heart disease (4 sources) Bypass stent graft present; Translations: [Presence of aortocoronary bypass graft] Episodic Deficiency and other anemia (5 sources) Anemia; Translations: [Anemia, unspecified] 11-23-2023 Episodic Deficiency and other anemia (3 sources) Pernicious anemia; Translations: [Vitamin B12 deficiency anemia due to intrinsic factor deficiency] 12-15-2023 Episodic Deficiency and other anemia (3 sources) Vitamin B12 deficiency anemia due to [...] anus and rectum] Episodic Headache; including migraine (14 sources) Migraine with aura; Translations: [Migraine with aura, not intractable, without status migrainosus] Chronic Headache; including migraine (2 sources) Headache; Translations: [Headache] 01-25-2024 Episodic Malaise and fatigue (2 sources) Other fatigue; Translations: [Other fatigue] Onset: 4 Episodic Nonspecific chest pain (20 sources) Chest wall pain; Translations: [Other chest pain] Resolved: 0 12-24-2023 Episodic Osteoarthritis (17 sources) Localized, primary osteoarthritis of the shoulder region; Translations: [Primary osteoarthritis, right shoulder] Chronic Osteoporosis (18 sources) Primary osteoporosis; Translations: [Age-related osteoporosis without current pathological fracture] 11-30-2023 Chronic Other aftercare (1 source) 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 control servicer (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 therapy Episodic Other connective tissue disease (13 sources) Tendinitis of right rotator cuff; Translations: [Other shoulder lesions, right shoulder] Episodic Other connective tissue disease (4 sources) Mass of shoulder region; Translations: [Other shoulder lesions, right shoulder] Episodic Other gastrointestinal disorders (18 sources) Irritable bowel syndrome characterized by constipation; Translations: [Irritable bowel syndrome with constipation] 11-30-2023 Chronic Other gastrointestinal disorders (14 sources) Constipation; Translations: [Constipation, unspecified] Episodic Other gastrointestinal disorders (19 sources) Dysphagia; Translations: [Dysphagia, unspecified] 09-01-2023 Episodic Other gastrointestinal disorders (2 sources) Dysphagia, unspecified Onset: 2 Resolved: 2 Episodic Other gastrointestinal disorders (2 sources) Constipation, unspecified Onset: 2 Resolved: 2 Episodic Other gastrointestinal disorders (4 sources) H/O: gastrointestinal disease; Translations: [Personal history of other diseases of the digestive system] Episodic Other infections; including parasitic (5 sources) Post-viral disorder; 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] 11-30-2023 Chronic Other injuries and conditions due to external causes (4 sources) History of fall; Translations: [History of falling] Episodic Other lower respiratory disease (2 sources) Shortness of breath; Translations: [Shortness of breath] Onset: 4 Episodic Other non-traumatic joint disorders (4 sources) Shoulder joint pain; Translations: [Pain in right shoulder] Episodic Other screening for suspected conditions (not mental disorders or infectious disease) (3 sources) Encounter for screening mammogram for malignant neoplasm of breast; Translations: [Abnormal result of other cardiovascular function study] Episodic Other skin disorders (17 sources) Vesicular eczema of hands and/or feet; Translations: [Dyshidrosis [pompholyx]] Episodic Other skin disorders (5 sources) Vesicular eczema; Translations: [Dyshidrosis [pompholyx]] 11-30-2023 [...] [Asymptomatic menopausal state] Episodic Residual codes; unclassified (5 sources) Menopause present; Translations: [Asymptomatic menopausal state] [...] Acute cough R05.1 Unclassified (2 sources) 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); Translations: [Post-COVID syndrome] Unclassified (1 source) Other post infection and related fatigue syndromes; 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] Onset: 01-05-2024 Results Test Name Value Interpretation Reference Range Facility Office Visiton 01-05-2024 Follow-up visit [id number] Angelo Brewster 1950 F Date Provider Department Center 01/05/2024 [facility] Family History Problem Relation Age of Onset Coronary artery disease Mother Coronary artery disease Father Alzheimer's disease Father Family Status - Relation Status Age at Mother Father Level of Service:12599 [place] OFFICE/OUTPATIENT ESTABLISHED LOW MDM 20 MIN Normal [facility] Basophils Auto (Bld) [#/Vol] on 12-15-2023 Basophils (Bld) [#/Vol] 0.1 10 3/uL 0.0-0.1 [facility] Basophils/100 WBC Auto (Bld) on 12-15-2023 Basophils/100 WBC (Bld) 1.1 % 0.2-2.0 [facility] Eosinophils/100 WBC Auto (Bl d)on 12-15-2023 Eosinophils/100 WBC (Bld) 3.0 % 0.9-7.0 [facility] Erythrocyte distribution wid th Auto (RBC) [Ratio]on 12-15-2023 Erythrocyte distribution width (RBC) [Ratio] 12.8 % 11.0-15.0 [facility] Estimated glomerular filtrat ion rate (GFR) non- Americanon 12-15-2023 GFR/1.73 sq M.predicted among non-blacks MDRD (S/P/Bld) [Vol rate/Area] mL/min/{1.73_m2} >=60 [facility] Globulin Calc (S) [Mass/Vol] on 12-15-2023 Globulin (S) [Mass/Vol] 3.8 g/dL [facility] Hematocrit Auto (Bld) [Volum e fraction]on 12-15-2023 Hematocrit (Bld) [Volume fraction] 36.6 % 36.0-48.0 [facility] Hemoglobin [Mass/volume] in Bloodon 12-15-2023 Hemoglobin (Bld) [Mass/Vol] 11.8 g/dL 12.0-16.0 [facility] Laboratory - Chemistry and C hemistry - challengeon 12-15-2023 Albumin [Mass/Vol] 4.0 g/dL 3.4-5.0 [facility] ALP [Catalytic activity/Vol] 63 U/L 46-116 [facility] ALT [Catalytic activity/Vol] 22 U/L 14-59 [facility] AST [Catalytic activity/Vol] 16 U/L 15-37 [facility] Bilirubin [Mass/Vol] 0.4 mg/dL 0.2-1.0 [facility] Calcium [Mass/Vol] 9.3 mg/dL 8.5-10.1 [facility] Chloride [Moles/Vol] 103 mmol/L 98-107 [facility] CO2 [Moles/Vol] 30.5 mmol/L 21.0-32.0 [facility] Creatinine [Mass/Vol] 0.75 mg/dL 0.55-1.02 [facility] Free T4 [Mass/Vol] 1.04 ng/dL 0.76-1.46 [facility] GFR/1.73 sq M.predicted MDRD (S/P/Bld) [Vol rate/Area] mL/min/{1.73_m2} >=60 [facility] Glucose [Mass/Vol] 97 mg/dL 74-106 [facility] Natriuretic peptide B (Bld) [Mass/Vol] 193.0 pg/mL <=900.0 [facility] Potassium [Moles/Vol] 4.2 mmol/L 3.5-5.1 [facility] Protein [Mass/Vol] 7.8 g/dL 6.4-8.2 [facility] Sodium [Moles/Vol] 143 mmol/L 136-145 [facility] TSH Qn 1.181 m[IU]/L 0.358-3.740 [facility] Urea nitrogen [Mass/Vol] 14.0 mg/dL 7.0-18.0 [facility] Urea nitrogen/Creatinine [Mass ratio] 18.7 mg/mg [facility] Laboratory - Hematology and Cell countson 12-15-2023 Immature granulocytes/100 WBC (Bld) 0.2 % 0.0-0.5 [facility] Leukocytes [#/volume] correc andrew for nucleated erythrocytes in Blood by Automated counon 12-15-2023 WBC corrected for nucl RBC Auto (Bld) [#/Vol] 6.7 10 3/uL 4.0-11.0 [facility] Lymphocytes Auto (Bld) [#/Vo l]on 12-15-2023 Lymphocytes (Bld) [#/Vol] 1.5 10 3/uL 1.2-3.8 [facility] Lymphocytes/100 WBC Auto (Bl d)on 12-15-2023 Lymphocytes/100 WBC (Bld) 22.6 % 20.5-60.0 [facility] MCH Auto (RBC) [Entitic mass ]on 12-15-2023 MCH (RBC) [Entitic mass] 31.4 pg 26.7-34.0 [facility] MCHC Auto (RBC) [Mass/Vol]on 12-15-2023 MCHC (RBC) [Mass/Vol] 32.2 g/dL 29.9-35.2 [facility] MCV Auto (RBC) [Entitic vol] on 12-15-2023 MCV (RBC) [Entitic vol] 97.3 fL 81.0-99.0 [facility] Monocytes Auto (Bld) [#/Vol] on 12-15-2023 Monocytes (Bld) [#/Vol] 0.6 10 3/uL 0.3-0.8 [facility] Monocytes/100 WBC Auto (Bld) on 12-15-2023 Monocytes/100 WBC (Bld) 8.4 % 1.7-12.0 [facility] Neutrophils Auto (Bld) [#/Vo l]on 12-15-2023 Neutrophils (Bld) [#/Vol] 4.3 10 3/uL 1.4-6.5 [facility] Neutrophils/100 WBC Auto (Bl d)on 12-15-2023 Neutrophils/100 WBC (Bld) 64.7 % 43.0-75.0 [facility] No Panel Informationon 12-14 Eosinophils # (Auto) 0.2 10 3/uL 0.0-0.7 [facility] Immature Granulocyte # (Auto) 0.01 10 3/uL 0.00-0.03 [facility] Office Visiton 12-15-2023 Follow-up visit [id number] Angelo Brewster 1950 F Date Provider Department Center 12/15/2023 271-JANAY AJ CARD [facility] Family History Problem Relation Age of Onset Coronary artery disease Mother Coronary artery disease Father Alzheimer's disease Father Family Status - Relation Status Age at Mother Father Level of Service:57494 [place] OFFICE/OUTPATIENT ESTABLISHED MOD MDM 30 MIN Normal [facility] Platelet mean volume Auto (B ld) [Entitic vol]on 12-15-2023 Platelet mean volume (Bld) [Entitic vol] 10.1 fL 9.5-13.5 [facility] Platelets Auto (Bld) [#/Vol] on 12-15-2023 Platelets (Bld) [#/Vol] 275 10 3/uL 150-450 [facility] RBC Auto (Bld) [#/Vol]on RBC (Bld) [#/Vol] 3.76 10 6/uL 4.20-5.40 [facility] Serum or plasma albumin/glob ulin mass ratioon 12-15-2023 Albumin/Globulin [Mass ratio] 1.1 {ratio} [facility] Serum or plasma anion gap de terminationon 12-15-2023 Anion gap [Moles/Vol] 13.7 mmol/L [facility] Basophils Auto (Bld) [#/Vol] on 12-07-2023 Basophils (Bld) [#/Vol] 0.1 10 3/uL 0.0-0.1 [facility] Basophils/100 WBC Auto (Bld) on 12-07-2023 Basophils/100 WBC (Bld) 0.7 % 0.2-2.0 [facility] Cholesterol in LDL Calc [Mas s/Vol]on 12-07-2023 Cholesterol in LDL [Mass/Vol] 54.0 mg/dL [facility] Comment on above: <100 mg/dl [id number] 0-129 mg/dl NEAR OR ABOVE [id number] mg/dl BORDERLINE [id number] mg/dl HIGH>190 mg/dl VERY HIGH Cholesterol in VLDL Calc [Ma ss/Vol]on 12-07-2023 Cholesterol in VLDL [Mass/Vol] 38.0 mg/dL [facility] Eosinophils/100 WBC Auto (Bl d)on 12-07-2023 Eosinophils/100 WBC (Bld) 2.6 % 0.9-7.0 [facility] Erythrocyte distribution wid th Auto (RBC) [Ratio]on 12-07-2023 Erythrocyte distribution width (RBC) [Ratio] 12.9 % 11.0-15.0 [facility] Estimated glomerular filtrat ion rate (GFR) non- Americanon 12-07-2023 GFR/1.73 sq M.predicted among non-blacks MDRD (S/P/Bld) [Vol rate/Area] mL/min/{1.73_m2} >=60 [facility] Globulin Calc (S) [Mass/Vol] on 12-07-2023 Globulin (S) [Mass/Vol] 3.5 g/dL [facility] Glucose mean value [Mass/vol ume] in Blood Estimated from glycated hemoglobinon 12-07-2023 Average glucose Estimated from glycated hemoglobin (Bld) [Mass/Vol] 111 mg/dL [facility] Hematocrit Auto (Bld) [Volum e fraction]on 12-07-2023 Hematocrit (Bld) [Volume fraction] 37.5 % 36.0-48.0 [facility] Hemoglobin [Mass/volume] in Bloodon 12-07-2023 Hemoglobin (Bld) [Mass/Vol] 12.2 g/dL 12.0-16.0 [facility] Laboratory - Chemistry and C hemistry - challengeon 12-07-2023 Albumin [Mass/Vol] 3.8 g/dL 3.4-5.0 [facility] ALP [Catalytic activity/Vol] 63 U/L 46-116 [facility] ALT [Catalytic activity/Vol] 22 U/L 14-59 [facility] AST [Catalytic activity/Vol] 15 U/L 15-37 [facility] Bilirubin [Mass/Vol] 0.4 mg/dL 0.2-1.0 [facility] Calcium [Mass/Vol] 9.0 mg/dL 8.5-10.1 [facility] Chloride [Moles/Vol] 104 mmol/L 98-107 [facility] Cholesterol [Mass/Vol] 152 mg/dL <=200 [facility] Cholesterol in HDL [Mass/Vol] 60 mg/dL 40-60 [facility] Comment on above: > or =60 mg/dl - LOW CARDIOVASCULAR RISK<40 mg/dl - HIGH CARDIOVASCULAR RISK CO2 [Moles/Vol] 29.2 mmol/L 21.0-32.0 [facility] Creatinine [Mass/Vol] 0.75 mg/dL 0.55-1.02 [facility] GFR/1.73 sq M.predicted MDRD (S/P/Bld) [Vol rate/Area] mL/min/{1.73_m2} >=60 [facility] Glucose [Mass/Vol] 88 mg/dL 74-106 [facility] Potassium [Moles/Vol] 4.2 mmol/L 3.5-5.1 [facility] Protein [Mass/Vol] 7.3 g/dL 6.4-8.2 [facility] Sodium [Moles/Vol] 143 mmol/L 136-145 [facility] Triglyceride [Mass/Vol] 190 mg/dL <=150 [facility] TSH Qn 1.222 m[IU]/L 0.358-3.740 [facility] Urea nitrogen [Mass/Vol] 15.0 mg/dL 7.0-18.0 [facility] Urea nitrogen/Creatinine [Mass ratio] 20.0 mg/mg [facility] Laboratory - Hematology and Cell countson 12-07-2023 HbA1c (Bld) [Mass fraction] 5.5 % 4.5-6.2 [facility] Comment on above: ADA RECOMMENDED LIMI T 4.0 - 6.0ADA THERAPEUTIC TARGET < 7.0ACTION SUGGESTED> 7.0 Immature granulocytes/100 WBC (Bld) 0.1 % 0.0-0.5 [facility] Leukocytes [#/volume] correc andrew for nucleated erythrocytes in Blood by Automated counon 12-07-2023 WBC corrected for nucl RBC Auto (Bld) [#/Vol] 8.4 10 3/uL 4.0-11.0 [facility] Lymphocytes Auto (Bld) [#/Vo l]on 12-07-2023 Lymphocytes (Bld) [#/Vol] 1.4 10 3/uL 1.2-3.8 [facility] Lymphocytes/100 WBC Auto (Bl d)on 12-07-2023 Lymphocytes/100 WBC (Bld) 16.6 % 20.5-60.0 [facility] MCH Auto (RBC) [Entitic mass ]on 12-07-2023 MCH (RBC) [Entitic mass] 31.9 pg 26.7-34.0 [facility] MCHC Auto (RBC) [Mass/Vol]on 12-07-2023 MCHC (RBC) [Mass/Vol] 32.5 g/dL 29.9-35.2 [facility] MCV Auto (RBC) [Entitic vol] on 12-07-2023 MCV (RBC) [Entitic vol] 97.9 fL 81.0-99.0 [facility] Monocytes Auto (Bld) [#/Vol] on 12-07-2023 Monocytes (Bld) [#/Vol] 0.6 10 3/uL 0.3-0.8 [facility] Monocytes/100 WBC Auto (Bld) on 12-07-2023 Monocytes/100 WBC (Bld) 7.5 % 1.7-12.0 [facility] Neutrophils Auto (Bld) [#/Vo l]on 12-07-2023 Neutrophils (Bld) [#/Vol] 6.1 10 3/uL 1.4-6.5 [facility] Neutrophils/100 WBC Auto (Bl d)on 12-07-2023 Neutrophils/100 WBC (Bld) 72.5 % 43.0-75.0 [facility] No Panel Informationon 12-06 Eosinophils # (Auto) 0.2 10 3/uL 0.0-0.7 [facility] Immature Granulocyte # (Auto) 0.01 10 3/uL 0.00-0.03 [facility] Platelet mean volume Auto (B ld) [Entitic vol]on 12-07-2023 Platelet mean volume (Bld) [Entitic vol] 9.9 fL 9.5-13.5 [facility] Platelets Auto (Bld) [#/Vol] on 12-07-2023 Platelets (Bld) [#/Vol] 279 10 3/uL 150-450 [facility] RBC Auto (Bld) [#/Vol]on RBC (Bld) [#/Vol] 3.83 10 6/uL 4.20-5.40 [facility] Serum or plasma albumin/glob ulin mass ratioon 12-07-2023 Albumin/Globulin [Mass ratio] 1.1 {ratio} [facility] Serum or plasma anion gap de terminationon 12-07-2023 Anion gap [Moles/Vol] 14.0 [facility] Serum or plasma total choles terol/high density lipoprotein (HDL) cholesterol mass darian 12-07-2023 Cholesterol.total/Cho lesterol in HDL [Mass ratio] 2.5 {ratio} [facility] Comment on above: 3.3 - 4.4 LOW RISK4. 4 - 7.1 AVERAGE RISK7.1 - 11.0 MODERATE RISK>11.0 HIGH RISK Basophils Auto (Bld) [#/Vol] on 11-26-2023 Basophils (Bld) [#/Vol] 0.1 10 3/uL 0.0-0.1 [facility] Basophils/100 WBC Auto (Bld) on 11-26-2023 Basophils/100 WBC (Bld) 1.1 % 0.2-2.0 [facility] Eosinophils/100 WBC Auto (Bl d)on 11-26-2023 Eosinophils/100 WBC (Bld) 2.2 % 0.9-7.0 [facility] Erythrocyte distribution wid th Auto (RBC) [Ratio]on 11-26-2023 Erythrocyte distribution width (RBC) [Ratio] 12.7 % 11.0-15.0 [facility] Hematocrit Auto (Bld) [Volum e fraction]on 11-26-2023 Hematocrit (Bld) [Volume fraction] 36.1 % 36.0-48.0 [facility] Hemoglobin [Mass/volume] in Bloodon 11-26-2023 Hemoglobin (Bld) [Mass/Vol] 11.4 g/dL 12.0-16.0 [facility] Iron binding capacity [Mass/ volume] in Serum or Plasmaon 11-26-2023 Iron binding capacity [Mass/Vol] 295.0 ug/dL 250.0-450.0 [facility] Iron saturation [Mass Fracti on] in Serum or Plasmaon 11-26-2023 Iron saturation [Mass fraction] 40.3 % [facility] Laboratory - Chemistry and C hemistry - challengeon 11-26-2023 Cobalamin (Vitamin B12) [Mass/Vol] 161.0 pg/mL 193.0-986.0 [facility] Ferritin [Mass/Vol] 41.0 ng/mL 8.0-252.0 [facility] Iron [Mass/Vol] 119.0 ug/dL 50.0-170.0 [facility] Laboratory - Hematology and Cell countson 11-26-2023 Immature granulocytes/100 WBC (Bld) 0.2 % 0.0-0.5 [facility] Leukocytes [#/volume] correc andrew for nucleated erythrocytes in Blood by Automated counon 11-26-2023 WBC corrected for nucl RBC Auto (Bld) [#/Vol] 6.4 10 3/uL 4.0-11.0 [facility] Lymphocytes Auto (Bld) [#/Vo l]on 11-26-2023 Lymphocytes (Bld) [#/Vol] 1.4 10 3/uL 1.2-3.8 [facility] Lymphocytes/100 WBC Auto (Bl d)on 11-26-2023 Lymphocytes/100 WBC (Bld) 21.6 % 20.5-60.0 [facility] MCH Auto (RBC) [Entitic mass ]on 11-26-2023 MCH (RBC) [Entitic mass] 31.1 pg 26.7-34.0 [facility] MCHC Auto (RBC) [Mass/Vol]on 11-26-2023 MCHC (RBC) [Mass/Vol] 31.6 g/dL 29.9-35.2 [facility] MCV Auto (RBC) [Entitic vol] on 11-26-2023 MCV (RBC) [Entitic vol] 98.6 fL 81.0-99.0 [facility] Monocytes Auto (Bld) [#/Vol] on 11-26-2023 Monocytes (Bld) [#/Vol] 0.6 10 3/uL 0.3-0.8 [facility] Monocytes/100 WBC Auto (Bld) on 11-26-2023 Monocytes/100 WBC (Bld) 9.8 % 1.7-12.0 [facility] Neutrophils Auto (Bld) [#/Vo l]on 11-26-2023 Neutrophils (Bld) [#/Vol] 4.2 10 3/uL 1.4-6.5 [facility] Neutrophils/100 WBC Auto (Bl d)on 11-26-2023 Neutrophils/100 WBC (Bld) 65.1 % 43.0-75.0 [facility] No Panel Informationon 11-25 Eosinophils # (Auto) 0.1 10 3/uL 0.0-0.7 [facility] Folate 17.80 ng/mL 8.60-58.90 [facility] Immature Granulocyte # (Auto) 0.01 10 3/uL 0.00-0.03 [facility] Platelet mean volume Auto (B ld) [Entitic vol]on 11-26-2023 Platelet mean volume (Bld) [Entitic vol] 9.7 fL 9.5-13.5 [facility] Platelets Auto (Bld) [#/Vol] on 11-26-2023 Platelets (Bld) [#/Vol] 268 10 3/uL 150-450 [facility] RBC Auto (Bld) [#/Vol]on RBC (Bld) [#/Vol] 3.66 10 6/uL 4.20-5.40 [facility] CBC AUTO DIFFon 11-24-2022 BASO # 0.0 103/ul Normal 0.0-0.1 [facility] Comment on above: Performed By: #### H FPFCBC #### [facility] [address] [place] [address] Dr. Rigo Julio Basophils/100 WBC (Bld) 0.6 % Normal 0.2-2.0 [facility] Comment on above: Performed By: #### H FPFCBC #### [facility] [address] [place] [address] Dr. Rigo Julio EO # 0.1 103/ul Normal 0.0-0.7 [facility] Comment on above: Performed By: #### H FPFCBC #### [facility] [address] [place] [address] Dr. Rigo Julio Eosinophils/100 WBC (Bld) 1.4 % Normal 0.9-7.0 [facility] Comment on above: Performed By: #### H FPFCBC #### [facility] [address] [place] [address] Dr. Rigo Julio Erythrocyte distribution width (RBC) [Ratio] 12.8 % Normal 11.0-15.0 [facility] Comment on above: Performed By: #### H FPFCBC #### [facility] [address] [place] [address] Dr. Rigo Julio Hematocrit (Bld) [Volume fraction] 37.5 % Normal 36.0-48.0 [facility] Comment on above: Performed By: #### H FPFCBC #### [facility] [address] [place] [address] Dr. Rigo Julio Hemoglobin (Bld) [Mass/Vol] 12.3 g/dL Normal 12.0-16.0 [facility] Comment on above: Performed By: #### H FPFCBC #### [facility] [address] [place] [address] Dr. Rigo Julio IG # 0.02 10e3/ul Normal 0.00-0.03 [facility] Comment on above: Performed By: #### H FPFCBC #### [facility] [address] [place] [address] Dr. Rigo Julio IG % 0.3 % Normal 0.0-0.5 [facility] Comment on above: Performed By: #### H FPFCBC #### [facility] [address] [place] [address] Dr. Rigo Julio LYMPH # 1.3 103/ul Normal 1.2-3.8 [facility] Comment on above: Performed By: #### H FPFCBC #### [facility] [address] [place] [address] Dr. Rigo Julio Lymphocytes/100 WBC (Bld) 20.1 % Critically low 20.5-60.0 [facility] Comment on above: Performed By: #### H FPFCBC #### [facility] [address] [place] [address] Dr. Rigo Julio MCH (RBC) [Entitic mass] 31.4 pg Normal 26.7-34.0 [facility] Comment on above: Performed By: #### H FPFCBC #### [facility] [address] [place] [address] Dr. Rigo Julio MCHC (RBC) [Mass/Vol] 32.8 g/dL Normal 29.9-35.2 [facility] Comment on above: Performed By: #### H FPFCBC #### [facility] [address] [place] [address] Dr. Rigo Julio MCV (RBC) [Entitic vol] 95.7 fL Normal 81.0-99.0 [facility] Comment on above: Performed By: #### H FPFCBC #### [facility] [address] [place] [address] Dr. Rigo Julio MONO # 0.5 103/ul Normal 0.3-0.8 [facility] Comment on above: Performed By: #### H FPFCBC #### [facility] [address] [place] [address] Dr. Rigo Julio Monocytes/100 WBC (Bld) 7.3 % Normal 1.7-12.0 [facility] Comment on above: Performed By: #### H FPFCBC #### [facility] [address] [place] [address] Dr. Rigo Julio NEUT # 4.6 103/ul Normal 1.4-6.5 [facility] Comment on above: Performed By: #### H FPFCBC #### [facility] [address] [address] [address] Rigo Julio Neutrophils/100 WBC (Bld) 70.3 % Normal 43.0-75.0 [facility] Comment on above: Performed By: #### H FPFCBC #### [facility] [address] [address] [address] Rigo Julio Platelet mean volume (Bld) [Entitic vol] 9.6 fL Normal 9.5-13.5 [facility] Comment on above: Performed By: #### H FPFCBC #### [facility] [address] [address] [address] Rigo Julio PLT 272 103/ul Normal 150-450 [facility] Comment on above: Performed By: #### H FPFCBC #### [facility] [address] [address] [address] Rigo Julio RBC 3.92 106/ul Critically low 4.20-5.40 [facility] Comment on above: Performed By: #### H FPFCBC #### [facility] [address] [address] [address] Rigo Julio WBC 6.5 103/ul Normal 4.0-11.0 [facility] Comment on above: Performed By: #### H FPFCBC #### [facility] [address] [address] [address] Rigo Julio [facility] GLYCOHEMOGLOBIN A1Con 11-24-2022 Glucose [Mass/Vol] 114 mg/dL Normal [facility] Comment on above: Performed By: #### H FPFA1C #### [facility] [address] [address] [address] Rigo Julio HbA1c (Bld) [Mass fraction] 5.6 % Normal 4.5-6.2 [facility] Comment on above: Performed By: #### H FPFA1C #### [facility] [address] [address] [address] [facility] Albumin [Mass/Vol] 4.2 g/dL Normal 3.4-5.0 [facility] Comment on above: Performed By: #### H FPF #### [facility] [address] [place] [address] Dr. Rigo Julio Albumin/Globulin [Mass ratio] 1.2 {ratio} Normal [facility] Comment on above: Performed By: #### H FPF #### [facility] [address] [address] [address] Rigo Julio ALP [Catalytic activity/Vol] 76 U/L Normal 46-116 [facility] Comment on above: Performed By: #### H FPF #### [facility] [address] [place] [address] Dr. Rigo Julio ALT [Catalytic activity/Vol] 23 U/L Normal 14-59 [facility] Comment on above: Performed By: #### H FPF #### [facility] [address] [place] [address] Dr. Rigo Julio AST [Catalytic activity/Vol] 19 U/L Normal 15-37 [facility] Comment on above: Performed By: #### H FPF #### [facility] [address] [place] [address] Dr. Rigo Julio Bilirubin [Mass/Vol] 0.4 mg/dL Normal 0.2-1.0 [facility] Comment on above: Performed By: #### H FPF #### [facility] [address] [place] [address] Dr. Rigo Julio Calcium [Mass/Vol] 9.2 mg/dL Normal 8.5-10.1 [facility] Comment on above: Performed By: #### H FPF #### [facility] [address] [place] [address] Dr. Rigo Julio Chloride [Moles/Vol] 105 mmol/L Normal 98-107 [facility] Comment on above: Performed By: #### H FPF #### [facility] [address] [place] [address] Dr. Rigo Julio CHOL-HDL RATIO NORM SEE BELOW Normal [facility] Comment on above: Result Comment: 3.3 - 4.4 LOW RISK 4.4 - 7.1 AVERAGE RISK 7.1 - 11.0 MODERATE RISK >11.0 HIGH RISK Performed By: #### H FPF #### [facility] [address] [address] [address] Rigo Julio Cholesterol [Mass/Vol] 158 mg/dL Normal <=200 [facility] Comment on above: Performed By: #### H FPF #### [facility] [address] [address] [address] Rigo Julio Cholesterol in HDL [Mass/Vol] 59 mg/dL Normal 40-60 [facility] Comment on above: Performed By: #### H FPF #### [facility] [address] [address] [address] Rigo Julio Cholesterol in LDL [Mass/Vol] 69.0 mg/dL Normal [facility] Comment on above: Performed By: #### H FPF #### [facility] [address] [address] [address] Rigo Julio Cholesterol.total/Cho lesterol in HDL [Mass ratio] 2.7 {ratio} Normal [facility] Comment on above: Performed By: #### H FPF #### [facility] [address] [place] [address] Dr. Rigo Julio CO2 [Moles/Vol] 30.2 mmol/L Normal 21.0-32.0 [facility] Comment on above: Performed By: #### H FPF #### [facility] [address] [address] [address] Rigo Julio Creatinine [Mass/Vol] 0.79 mg/dL Normal 0.55-1.02 [facility] Comment on above: Performed By: #### H FPF #### [facility] [address] [address] [address] Rigo Julio Globulin (S) [Mass/Vol] 3.6 g/dL Normal [facility] Comment on above: Performed By: #### H FPF #### [facility] [address] [address] [address] Rigo Julio Glucose [Mass/Vol] 99 mg/dL Normal 74-106 [facility] Comment on above: Performed By: #### H FPF #### [facility] [address] [address] [address] Rigo Julio HDL NORMAL > or = 60 mg/dl - LO W CARDIOVASCULAR RISK <40 mg/dl - HIGH CARDIOVASCULAR RISK Normal [facility] Comment on above: Performed By: #### H FPF #### [facility] [address] [address] [address] Rigo Julio LDL CALC NORMAL SEE BELOW Normal [facility] Comment on above: Result Comment: <100 mg/dl OPTIMAL 100 - 129 mg/dl NEAR OR ABOVE OPTIMAL 130 - 159 mg/dl BORDERLINE HIGH 160 - 189 mg/dl HIGH >190 mg/dl VERY HIGH Performed By: #### H FPF #### [facility] [address] [address] [address] Rigo Julio Potassium [Moles/Vol] 4.8 mmol/L Normal 3.5-5.1 [facility] Comment on above: Performed By: #### H FPF #### [facility] [address] [address] [address] Rigo Julio Protein [Mass/Vol] 7.8 g/dL Normal 6.4-8.2 [facility] Comment on above: Performed By: #### H FPF #### [facility] [address] [address] [address] Rigo Julio Sodium [Moles/Vol] 143 mmol/L Normal 136-145 [facility] Comment on above: Performed By: #### H FPF #### [facility] [address] [address] [address] Rigo Julio Triglyceride [Mass/Vol] 150 mg/dL Normal <=150 [facility] Comment on above: Performed By: #### H FPF #### [facility] [address] [place] [address] Dr. Rigo Julio TSH 1.255 uIU/mL Normal 0.358-3.740 [facility] Comment on above: Performed By: #### H FPF #### [facility] [address] [address] [address] Rigo Julio Urea nitrogen [Mass/Vol] 11.0 mg/dL Normal 7.0-18.0 [facility] Comment on above: Performed By: #### H FPF #### [facility] [address] [address] [address] Rigo Julio Urea nitrogen/Creatinine [Mass ratio] 13.9 mg/mg Normal [facility] Comment on above: Performed By: #### H FPF #### [facility] [address] [address] [address] Rigo Julio VLDL CALC 30.0 mg/dL Normal [facility] Comment on above: Performed By: #### H FPF #### [facility] [address] [place] [address] Dr. Rigo Jluio LIPID PROFILEon 10-06-2022 CHOL-HDL RATIO NORM SEE BELOW Normal [facility] Comment on above: Result Comment: 3.3 - 4.4 LOW RISK 4.4 - 7.1 AVERAGE RISK 7.1 - 11.0 MODERATE RISK >11.0 HIGH RISK Performed By: #### L IPID, CMP #### [facility] [address] [place] [address] Dr. Rigo Julio Cholesterol [Mass/Vol] 131 mg/dL Normal <=200 [facility] Comment on above: Performed By: #### L IPID, CMP #### [facility] [address] [place] [address] Dr. Rigo Julio Cholesterol in HDL [Mass/Vol] 56 mg/dL Normal 40-60 [facility] Comment on above: Performed By: #### L IPID, CMP #### [facility] [address] [place] [address] Dr. Rigo Julio Cholesterol in LDL [Mass/Vol] 43.8 mg/dL Normal [facility] Comment on above: Performed By: #### L IPID, CMP #### [facility] [address] [place] [address] Dr. Rigo Julio Cholesterol.total/Cho lesterol in HDL [Mass ratio] 2.3 {ratio} Normal [facility] Comment on above: Performed By: #### L IPID, CMP #### [facility] [address] [address] [address] Rigo Julio HDL NORMAL > or = 60 mg/dl - LO W CARDIOVASCULAR RISK <40 mg/dl - HIGH CARDIOVASCULAR RISK Normal [facility] Comment on above: Performed By: #### L IPID, CMP #### [facility] [address] [address] [address] Rigo Julio LDL CALC NORMAL SEE BELOW Normal [facility] Comment on above: Result Comment: <100 mg/dl OPTIMAL 100 - 129 mg/dl NEAR OR ABOVE OPTIMAL 130 - 159 mg/dl BORDERLINE HIGH 160 - 189 mg/dl HIGH >190 mg/dl VERY HIGH Performed By: #### L IPID, CMP #### [facility] [address] [address] [address] Rigo Julio Triglyceride [Mass/Vol] 156 mg/dL Critically high <=150 [facility] Comment on above: Performed By: #### L IPID, CMP #### [facility] [address] [address] [address] Rigo Julio VLDL CALC 31.2 mg/dL Normal [facility] Comment on above: Performed By: #### L IPID, CMP #### [facility] [address] [address] [address] Rigo Julio PROF 14(COMP METB)on 023 Albumin [Mass/Vol] 3.7 g/dL Normal 3.4-5.0 [facility] Comment on above: Performed By: #### L IPID, CMP #### [facility] [address] [address] [address] Rigo Julio Albumin/Globulin [Mass ratio] 1.1 {ratio} Normal [facility] Comment on above: Performed By: #### L IPID, CMP #### [facility] [address] [address] [address] Rigo Julio ALP [Catalytic activity/Vol] 80 U/L Normal 46-116 [facility] Comment on above: Performed By: #### L IPID, CMP #### [facility] [address] [address] [address] Rigo Julio ALT [Catalytic activity/Vol] 16 U/L Normal 14-59 [facility] Comment on above: Performed By: #### L IPID, CMP #### [facility] [address] [address] [address] Rigo Julio Anion gap [Moles/Vol] 11.7 mmol/L Normal [facility] Comment on above: Performed By: #### L IPID, CMP #### [facility] [address] [address] [address] Rigo Julio AST [Catalytic activity/Vol] 16 U/L Normal 15-37 [facility] Comment on above: Performed By: #### L IPID, CMP #### [facility] [address] [address] [address] Rigo Julio Bilirubin [Mass/Vol] 0.3 mg/dL Normal 0.2-1.0 [facility] Comment on above: Performed By: #### L IPID, CMP #### [facility] [address] [address] [address] Rigo Julio Calcium [Mass/Vol] 9.3 mg/dL Normal 8.5-10.1 [facility] Comment on above: Performed By: #### L IPID, CMP #### [facility] [address] [address] [address] Rigo Julio Chloride [Moles/Vol] 104 mmol/L Normal 98-107 [facility] Comment on above: Performed By: #### L IPID, CMP #### [facility] [address] [address] [address] Rigo Julio CO2 [Moles/Vol] 30.1 mmol/L Normal 21.0-32.0 [facility] Comment on above: Performed By: #### L IPID, CMP #### [facility] [address] [address] [address] Rigo Julio Creatinine [Mass/Vol] 0.74 mg/dL Normal 0.55-1.02 [facility] Comment on above: Performed By: #### L IPID, CMP #### [facility] [address] [place] [address] Dr. Rigo Julio EGFR-AF PERUVIAN >60 Normal >=60 [facility] Comment on above: Performed By: #### L IPID, CMP #### [facility] [address] [address] [address] Rigo Julio EGFR-NON AF PERUVIAN >60 Normal >=60 [facility] Comment on above: Performed By: #### L IPID, CMP #### [facility] [address] [address] [address] Rigo Julio Globulin (S) [Mass/Vol] 3.5 g/dL Normal [facility] Comment on above: Performed By: #### L IPID, CMP #### [facility] [address] [place] [address] Dr. Rigo Julio Glucose [Mass/Vol] 105 mg/dL Normal 74-106 [facility] Comment on above: Performed By: #### L IPID, CMP #### [facility] [address] [place] [address] Dr. Rigo Julio Potassium [Moles/Vol] 4.8 mmol/L Normal 3.5-5.1 [facility] Comment on above: Performed By: #### L IPID, CMP #### [facility] [address] [place] [address] Dr. Rigo Julio Protein [Mass/Vol] 7.2 g/dL Normal 6.4-8.2 [facility] Comment on above: Performed By: #### L IPID, CMP #### [facility] [address] [place] [address] Dr. Rigo Julio Sodium [Moles/Vol] 141 mmol/L Normal 136-145 [facility] Comment on above: Performed By: #### L IPID, CMP #### [facility] [address] [place] [address] Dr. Rigo Julio Urea nitrogen [Mass/Vol] 13.0 mg/dL Normal 7.0-18.0 [facility] Comment on above: Performed By: #### L IPID, CMP #### [facility] [address] [address] [address] Rigo Julio Urea nitrogen/Creatinine [Mass ratio] 17.6 mg/mg Normal [facility] Comment on above: Performed By: #### L IPID, CMP #### [facility] [address] [address] [address] Rigo Julio LIPID PROFILEon 04-14-2022 CHOL-HDL RATIO NORM SEE BELOW Normal [facility] Comment on above: Result Comment: 3.3 - 4.4 LOW RISK 4.4 - 7.1 AVERAGE RISK 7.1 - 11.0 MODERATE RISK >11.0 HIGH RISK Performed By: #### L IPID, LIVER #### [facility] [address] [place] [address] Dr. Rigo Julio Cholesterol [Mass/Vol] 122 mg/dL Normal <=200 [facility] Comment on above: Performed By: #### L IPID, LIVER #### [facility] [address] [address] [address] Rigo Julio Cholesterol in HDL [Mass/Vol] 58 mg/dL Normal 40-60 [facility] Comment on above: Performed By: #### L IPID, LIVER #### [facility] [address] [address] [address] Rigo Julio Cholesterol in LDL [Mass/Vol] 33.4 mg/dL Normal [facility] Comment on above: Performed By: #### L IPID, LIVER #### [facility] [address] [address] [address] Rigo Julio Cholesterol.total/Cho lesterol in HDL [Mass ratio] 2.1 {ratio} Normal [facility] Comment on above: Performed By: #### L IPID, LIVER #### [facility] [address] [address] [address] Rigo Julio HDL NORMAL > or = 60 mg/dl - LO W CARDIOVASCULAR RISK <40 mg/dl - HIGH CARDIOVASCULAR RISK Normal [facility] Comment on above: Performed By: #### L IPID, LIVER #### [facility] [address] [address] [address] Rigo Julio LDL CALC NORMAL SEE BELOW Normal [facility] Comment on above: Result Comment: <100 mg/dl OPTIMAL 100 - 129 mg/dl NEAR OR ABOVE OPTIMAL 130 - 159 mg/dl BORDERLINE HIGH 160 - 189 mg/dl HIGH >190 mg/dl VERY HIGH Performed By: #### L IPID, LIVER #### [facility] [address] [address] [address] Rigo Julio Triglyceride [Mass/Vol] 153 mg/dL Critically high <=150 [facility] Comment on above: Performed By: #### L IPID, LIVER #### [facility] [address] [place] [address] Dr. Rigo Julio VLDL CALC 30.6 mg/dL Normal [facility] Comment on above: Performed By: #### L IPID, LIVER #### [facility] [address] [address] [address] Rigo Julio LIVER PROFILEon 04-14-2022 Albumin [Mass/Vol] 3.9 g/dL Normal 3.4-5.0 [facility] Comment on above: Performed By: #### L IPID, LIVER #### [facility] [address] [place] [address] Dr. Rigo Julio Albumin/Globulin [Mass ratio] 1.1 {ratio} Normal [facility] Comment on above: Performed By: #### L IPID, LIVER #### [facility] [address] [place] [address] Dr. Rigo Julio ALP [Catalytic activity/Vol] 76 U/L Normal 46-116 [facility] Comment on above: Performed By: #### L IPID, LIVER #### [facility] [address] [place] [address] Dr. Rigo Julio ALT [Catalytic activity/Vol] 21 U/L Normal 14-59 [facility] Comment on above: Performed By: #### L IPID, LIVER #### [facility] [address] [place] [address] Dr. Rigo Julio AST [Catalytic activity/Vol] 16 U/L Normal 15-37 [facility] Comment on above: Performed By: #### L IPID, LIVER #### [facility] [address] [place] [address] Dr. Rigo Julio BILI, CONJUGATED 0.1 mg/dL Normal 0.0-0.2 [facility] Comment on above: Performed By: #### L IPID, LIVER #### [facility] [address] [place] [address] Dr. Rigo Julio Bilirubin [Mass/Vol] 0.4 mg/dL Normal 0.2-1.0 [facility] Comment on above: Performed By: #### L IPID, LIVER #### [facility] [address] [place] [address] Dr. Rigo Julio Globulin (S) [Mass/Vol] 3.6 g/dL Normal [facility] Comment on above: Performed By: #### L IPID, LIVER #### [facility] [address] [place] [address] Dr. Rigo Julio Protein [Mass/Vol] 7.5 g/dL Normal 6.4-8.2 [facility] Comment on above: Performed By: #### L IPID, LIVER #### [facility] [address] [place] [address] Dr. Rigo Sy 03-10-2022 L - -------- Specimen: [id number] Received: 03/10/22 Status: CINDY Martin Num: [id number] Spec Type: Surgical Subm Dr: Travis Richter MD Tissues: A Esophagus Biopsy (ESOPHAGUS BX) Procedures: HE Stain/2, Gross/Micro L4 -------- Patient Age/Sex Location Account Attending Physician -------- Ambar Brewster 71/F [id number] Travis Richter MD -------- SPEC NUM: [id number] RECD: 03/10/22 STATUS: CINDY MARTIN NUM: [id number] ALEE: 03/10/22- DR: Travis Richter MD ENTERED: 03/10/22 [facility] DR: MC TYPE: Surgical DEPT: S ORDERED: [...] support the above pathologic diagnosis CPT Codes 28340 -------- -------- Specimen: [id number] Received: 03/10/22 Status: CINDY Martin Num: [id number] Spec Type: Surgical Subm Dr: Travis Richter MD Tissues: A Esophagus Biopsy (ESOPHAGUS BX) Procedures: TONNY Stain/2, Gross/Micro L4 -------- Patient: Ambar Brewster [id number] (Continued) -------- Signed (signature on file) Nadege Cardenas MD 03/11/22 1254 [facility] COVID-19 FRon 03-06-2022 SARS-CoV-2 (COVID-19) RNA EDA+probe Ql (Unsp spec) Negative Normal Negative [facility] Comment on above: Order Comment: Healt hcare Worker?: N Result Comment: Testing for SARS-CoV-2 by RT-PCR This test was developed and its performance characteristics determined by [employer] and validated at the [facility]. This test has not been FDA cleared [...] is terminated or revoked sooner. PERFORMED BY: [place] [address] PATHOLOGIST KENO DEALER SHARIF ARNOLD M.D. Performed By: #### C OVID 19 [facility] #### [address] PROF 14(COMP METB)on 022 Albumin [Mass/Vol] 3.7 g/dL Normal 3.4-5.0 [facility] Comment on above: Performed By: #### C MP #### [facility] [address] [place] [address] Dr. Rigo Julio Albumin/Globulin [Mass ratio] 1.0 {ratio} Normal [facility] Comment on above: Performed By: #### C MP #### [facility] [address] [address] [address] Rigo Julio ALP [Catalytic activity/Vol] 79 U/L Normal 46-116 [facility] Comment on above: Performed By: #### C MP #### [facility] [address] [address] [address] Rigo Julio ALT [Catalytic activity/Vol] 22 U/L Normal 14-59 [facility] Comment on above: Performed By: #### C MP #### [facility] [address] [address] [address] Rigo Julio Anion gap [Moles/Vol] 10.3 mmol/L Normal [facility] Comment on above: Performed By: #### C MP #### [facility] [address] [address] [address] Rigo Julio AST [Catalytic activity/Vol] 16 U/L Normal 15-37 [facility] Comment on above: Performed By: #### C MP #### [facility] [address] [address] [address] Rigo Julio Bilirubin [Mass/Vol] 0.3 mg/dL Normal 0.2-1.0 [facility] Comment on above: Performed By: #### C MP #### [facility] [address] [address] [address] Rigo Julio Calcium [Mass/Vol] 9.2 mg/dL Normal 8.5-10.1 [facility] Comment on above: Performed By: #### C MP #### [facility] [address] [place] [address] Dr. Rigo Julio Chloride [Moles/Vol] 104 mmol/L Normal 98-107 [facility] Comment on above: Performed By: #### C MP #### [facility] [address] [address] [address] Rigo Julio CO2 [Moles/Vol] 29.7 mmol/L Normal 21.0-32.0 [facility] Comment on above: Performed By: #### C MP #### [facility] [address] [address] [address] Rigo Julio Creatinine [Mass/Vol] 0.80 mg/dL Normal 0.55-1.02 [facility] Comment on above: Performed By: #### C MP #### [facility] [address] [address] [address] Rigo Julio EGFR-AF PERUVIAN >60 Normal >=60 [facility] Comment on above: Performed By: #### C MP #### [facility] [address] [address] [address] Rigo Julio EGFR-NON AF PERUVIAN >60 Normal >=60 [facility] Comment on above: Performed By: #### C MP #### [facility] [address] [address] [address] Rigo Julio Globulin (S) [Mass/Vol] 3.8 g/dL Normal [facility] Comment on above: Performed By: #### C MP #### [facility] [address] [address] [address] Rigo Julio Glucose [Mass/Vol] 93 mg/dL Normal 74-106 [facility] Comment on above: Performed By: #### C MP #### [facility] [address] [address] [address] Rigo Julio Potassium [Moles/Vol] 5.0 mmol/L Normal 3.5-5.1 [facility] Comment on above: Performed By: #### C MP #### [facility] [address] [address] [address] Rigo Julio Protein [Mass/Vol] 7.5 g/dL Normal 6.4-8.2 [facility] Comment on above: Performed By: #### C MP #### [facility] [address] [address] [address] Rigo Julio Sodium [Moles/Vol] 139 mmol/L Normal 136-145 [facility] Comment on above: Performed By: #### C MP #### [facility] [address] [address] [address] Rigo Julio Urea nitrogen [Mass/Vol] 11.0 mg/dL Normal 7.0-18.0 [facility] Comment on above: Performed By: #### C MP #### [facility] [address] [address] [address] Rigo Julio Urea nitrogen/Creatinine [Mass ratio] 13.8 mg/mg Normal [facility] Comment on above: Performed By: #### C MP #### [facility] [address] [place] [address] Dr. Rigo Julio [facility] CBC AUTO DIFFon 11-27-2021 BASO # 0.1 103/ul Normal 0.0-0.1 [facility] Comment on above: Performed By: #### H FPFCBC #### [facility] [address] [place] [address] Dr. Rigo Julio Basophils/100 WBC (Bld) 0.9 % Normal 0.2-2.0 [facility] Comment on above: Performed By: #### H FPFCBC #### [facility] [address] [place] [address] Dr. Rigo Julio EO # 0.2 103/ul Normal 0.0-0.7 [facility] Comment on above: Performed By: #### H FPFCBC #### [facility] [address] [place] [address] Dr. Rigo Julio Eosinophils/100 WBC (Bld) 2.7 % Normal 0.9-7.0 [facility] Comment on above: Performed By: #### H FPFCBC #### [facility] [address] [place] [address] Dr. Rigo Julio Erythrocyte distribution width (RBC) [Ratio] 13.5 % Normal 11.0-15.0 [facility] Comment on above: Performed By: #### H FPFCBC #### [facility] [address] [place] [address] Dr. Rigo Julio Hematocrit (Bld) [Volume fraction] 38.8 % Normal 36.0-48.0 [facility] Comment on above: Performed By: #### H FPFCBC #### [facility] [address] [place] [address] Dr. Rigo Julio Hemoglobin (Bld) [Mass/Vol] 12.6 g/dL Normal 12.0-16.0 [facility] Comment on above: Performed By: #### H FPFCBC #### [facility] [address] [place] [address] Dr. Rigo Julio IG # 0.02 10e3/ul Normal 0.00-0.03 [facility] Comment on above: Performed By: #### H FPFCBC #### [facility] [address] [place] [address] Dr. Rigo Julio IG % 0.4 % Normal 0.0-0.5 [facility] Comment on above: Performed By: #### H FPFCBC #### [facility] [address] [place] [address] Dr. Rigo Julio LYMPH # 1.3 103/ul Normal 1.2-3.8 [facility] Comment on above: Performed By: #### H FPFCBC #### [facility] [address] [place] [address] Dr. Rigo Julio Lymphocytes/100 WBC (Bld) 22.8 % Normal 20.5-60.0 [facility] Comment on above: Performed By: #### H FPFCBC #### [facility] [address] [place] [address] Dr. Rigo Julio MCH (RBC) [Entitic mass] 30.5 pg Normal 26.7-34.0 [facility] Comment on above: Performed By: #### H FPFCBC #### [facility] [address] [place] [address] Dr. Rigo Julio MCHC (RBC) [Mass/Vol] 32.5 g/dL Normal 29.9-35.2 [facility] Comment on above: Performed By: #### H FPFCBC #### [facility] [address] [place] [address] Dr. Rigo Julio MCV (RBC) [Entitic vol] 93.9 fL Normal 81.0-99.0 [facility] Comment on above: Performed By: #### H FPFCBC #### [facility] [address] [place] [address] Dr. Rigo Julio MONO # 0.4 103/ul Normal 0.3-0.8 [facility] Comment on above: Performed By: #### H FPFCBC #### [facility] [address] [address] [address] Rigo Julio Monocytes/100 WBC (Bld) 7.3 % Normal 1.7-12.0 [facility] Comment on above: Performed By: #### H FPFCBC #### [facility] [address] [address] [address] Rigo Julio NEUT # 3.6 103/ul Normal 1.4-6.5 [facility] Comment on above: Performed By: #### H FPFCBC #### [facility] [address] [place] [address] Dr. Rigo Julio Neutrophils/100 WBC (Bld) 65.9 % Normal 43.0-75.0 [facility] Comment on above: Performed By: #### H FPFCBC #### [facility] [address] [place] [address] Dr. Rigo Julio Platelet mean volume (Bld) [Entitic vol] 9.7 fL Normal 9.5-13.5 [facility] Comment on above: Performed By: #### H FPFCBC #### [facility] [address] [place] [address] Dr. Rigo Julio PLT 333 103/ul Normal 150-450 [facility] Comment on above: Performed By: #### H FPFCBC #### [facility] [address] [place] [address] Dr. Rigo Julio RBC 4.13 106/ul Critically low 4.20-5.40 [facility] Comment on above: Performed By: #### H FPFCBC #### [facility] [address] [place] [address] Dr. Rigo Julio WBC 5.5 103/ul Normal 4.0-11.0 [facility] Comment on above: Performed By: #### H FPFCBC #### [facility] [address] [place] [address] Dr. Rigo Julio [facility] GLYCOHEMOGLOBIN A1Con 11-27-2021 Glucose [Mass/Vol] 123 mg/dL Normal [facility] Comment on above: Performed By: #### H FPFA1C #### [facility] [address] [address] [address] Rigo Julio HbA1c (Bld) [Mass fraction] 5.9 % Normal <=6.0 [facility] Comment on above: Performed By: #### H FPFA1C #### [facility] [address] [place] [address] Dr. Rigo Julio [employer] PROFILEon 022 Albumin [Mass/Vol] 4.2 g/dL Normal 3.5-5.0 [facility] Comment on above: Performed By: #### L IPID, CMP #### [facility] [address] [place] [address] Dr. Rigo Julio Albumin/Globulin [Mass ratio] 1.2 {ratio} Normal [facility] Comment on above: Performed By: #### L IPID, CMP #### [facility] [address] [place] [address] Dr. Rigo Julio ALP [Catalytic activity/Vol] 81 U/L Normal 38-126 [facility] Comment on above: Performed By: #### L IPID, CMP #### [facility] [address] [place] [address] Dr. Rigo Julio ALT [Catalytic activity/Vol] 23 U/L Normal 9-52 [facility] Comment on above: Performed By: #### L IPID, CMP #### [facility] [address] [place] [address] Dr. Rigo Julio AST [Catalytic activity/Vol] 18 U/L Normal 14-36 [facility] Comment on above: Performed By: #### L IPID, CMP #### [facility] [address] [place] [address] Dr. Rigo Julio Bilirubin [Mass/Vol] 0.3 mg/dL Normal 0.2-1.3 [facility] Comment on above: Performed By: #### L IPID, CMP #### [facility] [address] [place] [address] Dr. Rigo Julio Calcium [Mass/Vol] 9.2 mg/dL Normal 8.4-10.2 [facility] Comment on above: Performed By: #### L IPID, CMP #### [facility] [address] [address] [address] Rigo Julio Chloride [Moles/Vol] 102 mmol/L Normal 98-107 [facility] Comment on above: Performed By: #### L IPID, CMP #### [facility] [address] [address] [address] Rigo Julio CHOL-HDL RATIO NORM SEE BELOW Normal [facility] Comment on above: Result Comment: 3.3 - 4.4 LOW RISK 4.4 - 7.1 AVERAGE RISK 7.1 - 11.0 MODERATE RISK >11.0 HIGH RISK Performed By: #### L IPID, CMP #### [facility] [address] [place] [address] Dr. Rigo Julio Cholesterol [Mass/Vol] 220 mg/dL Critically high <=200 [facility] Comment on above: Performed By: #### L IPID, CMP #### [facility] [address] [place] [address] Dr. Rigo Julio Cholesterol in HDL [Mass/Vol] 54 mg/dL Normal [facility] Comment on above: Performed By: #### L IPID, CMP #### [facility] [address] [place] [address] Dr. Rigo Julio Cholesterol in LDL [Mass/Vol] 141.6 mg/dL Normal [facility] Comment on above: Performed By: #### L IPID, CMP #### [facility] [address] [address] [address] Rigo Julio Cholesterol.total/Cho lesterol in HDL [Mass ratio] 4.1 {ratio} Normal [facility] Comment on above: Performed By: #### L IPID, CMP #### [facility] [address] [address] [address] Rigo Julio CO2 [Moles/Vol] 28.4 mmol/L Normal 22.0-30.0 [facility] Comment on above: Performed By: #### L IPID, CMP #### [facility] [address] [address] [address] Rigo Julio Creatinine [Mass/Vol] 0.84 mg/dL Normal 0.52-1.04 [facility] Comment on above: Performed By: #### L IPID, CMP #### [facility] [address] [address] [address] Rigo Julio Globulin (S) [Mass/Vol] 3.6 g/dL Normal [facility] Comment on above: Performed By: #### L IPID, CMP #### [facility] [address] [address] [address] Rigo Julio Glucose [Mass/Vol] 103 mg/dL Normal 74-106 [facility] Comment on above: Performed By: #### L IPID, CMP #### [facility] [address] [address] [address] Rigo Julio HDL NORMAL > or = 60 mg/dl - LO W CARDIOVASCULAR RISK <40 mg/dl - HIGH CARDIOVASCULAR RISK Normal [facility] Comment on above: Performed By: #### L IPID, CMP #### [facility] [address] [address] [address] Rigo Julio LDL CALC NORMAL SEE BELOW Normal [facility] Comment on above: Result Comment: <100 mg/dl OPTIMAL 100 - 129 mg/dl NEAR OR ABOVE OPTIMAL 130 - 159 mg/dl BORDERLINE HIGH 160 - 189 mg/dl HIGH >190 mg/dl VERY HIGH Performed By: #### L IPID, CMP #### [facility] [address] [address] [address] Rigo Julio Potassium [Moles/Vol] 5.6 mmol/L Critically high 3.4-5.0 [facility] Comment on above: Performed By: #### L IPID, CMP #### [facility] [address] [address] [address] Rigo Julio Protein [Mass/Vol] 7.8 g/dL Normal 6.1-8.2 [facility] Comment on above: Performed By: #### L IPID, CMP #### [facility] [address] [address] [address] Rigo Julio Sodium [Moles/Vol] 138 mmol/L Normal 137-145 [facility] Comment on above: Performed By: #### L IPID, CMP #### [facility] [address] [address] [address] Rigo Julio Triglyceride [Mass/Vol] 122 mg/dL Normal <=150 [facility] Comment on above: Performed By: #### L IPID, CMP #### [facility] [address] [address] [address] Rigo Julio TSH 1.542 uIU/mL Normal 0.470-4.680 [facility] Comment on above: Performed By: #### L IPID, CMP #### [facility] [address] [place] [address] Dr. Rigo Julio Urea nitrogen [Mass/Vol] 10.0 mg/dL Normal 7.0-17.0 [facility] Comment on above: Performed By: #### L IPID, CMP #### [facility] [address] [place] [address] Dr. Rigo Julio Urea nitrogen/Creatinine [Mass ratio] 11.9 mg/mg Normal [facility] Comment on above: Performed By: #### L IPID, CMP #### [facility] [address] [place] [address] Dr. Rigo Julio VLDL CALC 24.4 mg/dL Normal [facility] Comment on above: Performed By: #### L IPID, CMP #### [facility] [address] [place] [address] Dr. Rigo Julio POC GLUCOSE LABon 04-06-2021 Glucose [Mass/Vol] 112 mg/dL High 70-100 [facility] Comment on above: Performed By: #### 3 1595 #### [facility] [address] [facility] [place] [address], [facility] Glucose [Mass/Vol] 109 mg/dL High 70-100 [facility] Comment on above: Performed By: #### 5 0103 #### [facility] [address] [place] [address], [facility] BASIC METABOLIC PANELon 03-20 Calcium [Mass/Vol] 8.3 mg/dL Low 8.6-10.3 [facility] Comment on above: Order Comment: No: D o not add to previous draw Performed By: #### [id number] #### [facility] [address] [place] [address], [place] Chloride [Moles/Vol] 96 mmol/L Low 98-107 [facility] Comment on above: Order Comment: No: D o not add to previous draw Performed By: #### [id number] #### [facility] [address] [place] [address], [place] CO2 [Moles/Vol] 29 mmol/L Normal 21-31 [facility] Comment on above: Order Comment: No: D o not add to previous draw Performed By: #### 8 [id number] #### [facility] [address] [place] [address], [place] Creatinine [Mass/Vol] 0.60 mg/dL Normal 0.60-1.20 [facility] Comment on above: Order Comment: No: D o not add to previous draw Performed By: #### 8 [id number] #### [facility] [address] [place] [address], [place] GFR/1.73 sq M.predicted among blacks MDRD (S/P/Bld) [Vol rate/Area] mL/min/{1.73_m2} Normal >60 [facility] Comment on above: Order Comment: No: D o not add to previous draw Performed By: #### 8 [id number] #### [facility] [address] [place] [address], [place] GFR/1.73 sq M.predicted among non-blacks MDRD (S/P/Bld) [Vol rate/Area] mL/min/{1.73_m2} Normal >60 [facility] Comment on above: Order Comment: No: D o not add to previous draw Performed By: #### 8 [id number] #### [facility] [address] [place] [address], [place] Glucose [Mass/Vol] 100 mg/dL Normal 70-100 [facility] Comment on above: Order Comment: No: D o not add to previous draw Performed By: #### 8 [id number] #### [facility] [address] [place] [address], [place] Potassium [Moles/Vol] 4.2 mmol/L Normal 3.5-5.1 [facility] Comment on above: Order Comment: No: D o not add to previous draw Performed By: #### 8 [id number] #### [facility] [address] [place] [address], [place] Sodium [Moles/Vol] 132 mmol/L Low 136-145 [facility] Comment on above: Order Comment: No: D o not add to previous draw Performed By: #### 8 [id number] #### [facility] [address] [place] [address], [facility] Urea nitrogen [Mass/Vol] 13 mg/dL Normal 7-25 [facility] Comment on above: Order Comment: No: D o not add to previous draw Performed By: #### 8 [id number] #### [facility] [address] [place] [address], [facility] CBC COMPLETE BLOOD COUNTon 0 - Erythrocyte distribution width (RBC) [Ratio] 14.6 % Normal 11.5-15.0 [facility] Comment on above: Order Comment: No: D o not add to previous draw Performed By: #### 8 [id number] #### [facility] [address] [place] [address], [place] Hematocrit (Bld) [Volume fraction] 30.4 % Low 36.0-45.0 [facility] Comment on above: Order Comment: No: D o not add to previous draw Performed By: #### 8 [id number] #### [facility] [address] [place] [address], [facility] Hemoglobin (Bld) [Mass/Vol] 10.2 g/dL Low 12.0-15.0 [facility] Comment on above: Order Comment: No: D o not add to previous draw Performed By: #### 8 [id number] #### [facility] [address] [place] [address], [facility] MCH (RBC) [Entitic mass] 30.5 pg Normal 27.0-33.0 [facility] Comment on above: Order Comment: No: D o not add to previous draw Performed By: #### 8 [id number] #### [facility] [address] [place] [address], [facility] MCHC (RBC) [Mass/Vol] 33.6 g/dL Normal 32.0-35.0 [facility] Comment on above: Order Comment: No: D o not add to previous draw Performed By: #### 8 [id number] #### [facility] [address] [facility] [place] [address], [facility] MCV (RBC) [Entitic vol] 91.0 fL Normal 82.0-98.0 [facility] Comment on above: Order Comment: No: D o not add to previous draw Performed By: #### 8 [id number] #### [facility] [address] [facility] [place] [address], [facility] Nucleated RBC/100 WBC (Bld) [Ratio] 0 % Normal 0-0 [facility] Comment on above: Order Comment: No: D o not add to previous draw Performed By: #### 8 [id number] #### [facility] [address] [place] [address], [facility] PLAT CNT 124 10*3/uL Low 150-[address] [facility] Comment on above: Order Comment: No: D o not add to previous draw Performed By: #### 8 [id number] #### [facility] [address] [place] [address], [place] RBC (Bld) [#/Vol] 3.34 10*6/uL Low 3.80-5.00 The [facility] Comment on above: Order Comment: No: D o not add to previous draw Performed By: #### 8 [id number] #### [facility] [address] [place] [address], [place] WBC (Bld) [#/Vol] 13.12 10*3/uL High 4.00-10.60 [facility] Comment on above: Order Comment: No: D o not add to previous draw Performed By: #### 8 [id number] #### [facility] [address] [place] [address], [place] MAGNESIUM BLOODon 04-05-2021 Magnesium [Mass/Vol] 1.8 mg/dL Low 1.9-2.7 [facility] Comment on above: Order Comment: No: D o not add to previous draw Performed By: #### 8 [id number] #### [facility] [address] [place] [address], [place] POC GLUCOSE LABon 04-05-2021 Glucose [Mass/Vol] 144 mg/dL High 70-100 [facility] Comment on above: Performed By: #### 3 1595 #### [facility] [address] [place] [address], [place] Glucose [Mass/Vol] 117 mg/dL High 70-100 [facility] Comment on above: Performed By: #### 5 0103 #### [facility] [address] [place] [address], [place] Glucose [Mass/Vol] 125 mg/dL High 70-100 [facility] Comment on above: Performed By: #### 5 0103 #### [facility] [address] [place] [address], [facility] Glucose [Mass/Vol] 108 mg/dL High 70-100 The [facility] Comment on above: Performed By: #### 5 0103 #### [facility] [address] [facility] [place] [address], [facility] Glucose [Mass/Vol] 116 mg/dL High 70-100 [facility] Comment on above: Performed By: #### 5 0103 #### [facility] [address] [place] [address], [facility] PORTABLE CHEST 1 VIEWon 03-20 PORTABLE CHEST 1 VIEW [facility] Department of Radiology [address] [place] [address] [id number] Patient Name: AMBAR BREWSTER : 1950 Sex: F Age: Race: White Pt. Location: [place] [address] Patient Status: I Ordered Date: 04/05/2021 5:00:00 [...] therapy Electronically signed: Pam Ennis. Transcribed by: [email or web address], User Resident: Electronically Signed by: PAM ENNIS @ 04/05/2021 08:58 AM Normal [place] Comment on above: Order Comment: evalu ate for Atelectasis BASIC METABOLIC PANELon - Calcium [Mass/Vol] 8.6 mg/dL Normal 8.6-10.3 [facility] Comment on above: Order Comment: No: D o not add to previous draw Performed By: #### 3 0965 #### [facility] [address] [place] [address], [facility] Chloride [Moles/Vol] 99 mmol/L Normal 98-107 [facility] Comment on above: Order Comment: No: D o not add to previous draw Performed By: #### 3 0965 #### [facility] [address] [place] [address], [place] CO2 [Moles/Vol] 25 mmol/L Normal 21-31 The [facility] Comment on above: Order Comment: No: D o not add to previous draw Performed By: #### 3 0965 #### [facility] [address] [place] [id number], [place] Creatinine [Mass/Vol] 0.60 mg/dL Normal 0.60-1.20 [facility] Comment on above: Order Comment: No: D o not add to previous draw Performed By: #### 3 0965 #### [facility] [address] [place] [address], [place] GFR/1.73 sq M.predicted among blacks MDRD (S/P/Bld) [Vol rate/Area] mL/min/{1.73_m2} Normal >60 [facility] Comment on above: Order Comment: No: D o not add to previous draw Performed By: #### 3 0965 #### [facility] [address] [place] [address], [place] GFR/1.73 sq M.predicted among non-blacks MDRD (S/P/Bld) [Vol rate/Area] mL/min/{1.73_m2} Normal >60 [facility] Comment on above: Order Comment: No: D o not add to previous draw Performed By: #### 3 0965 #### [facility] [address] [place] [address], [place] Glucose [Mass/Vol] 111 mg/dL High 70-100 [facility] Comment on above: Order Comment: No: D o not add to previous draw Performed By: #### 3 0965 #### [facility] [address] [place] [address], [place] Potassium [Moles/Vol] 4.0 mmol/L Normal 3.5-5.1 [facility] Comment on above: Order Comment: No: D o not add to previous draw Performed By: #### 3 0965 #### [facility] [address] [place] [address], [place] Sodium [Moles/Vol] 130 mmol/L Low 136-145 [facility] Comment on above: Order Comment: No: D o not add to previous draw Performed By: #### 3 0965 #### [facility] [address] [place] [address], [place] Urea nitrogen [Mass/Vol] 15 mg/dL Normal 7-25 [facility] Comment on above: Order Comment: No: D o not add to previous draw Performed By: #### 3 0965 #### [facility] [address] [place] [address], [facility] CBC COMPLETE BLOOD COUNTon 0 - Erythrocyte distribution width (RBC) [Ratio] 15.7 % High 11.5-15.0 [facility] Comment on above: Order Comment: No: D o not add to previous draw Performed By: #### 8 [id number] #### [facility] [address] [place] [id number], [facility] Hematocrit (Bld) [Volume fraction] 30.1 % Low 36.0-45.0 [facility] Comment on above: Order Comment: No: D o not add to previous draw Performed By: #### 8 [id number] #### [facility] [address] [place] [id number], [facility] Hemoglobin (Bld) [Mass/Vol] 10.0 g/dL Low 12.0-15.0 [facility] Comment on above: Order Comment: No: D o not add to previous draw Performed By: #### 8 [id number] #### [facility] [address] [place] [address], [facility] IMM PLATELET FRAC 5.8 % Normal 0.8-6.3 [facility] Comment on above: Order Comment: No: D o not add to previous draw Performed By: #### 8 [id number] #### [facility] [address] [place] [id number], [facility] MCH (RBC) [Entitic mass] 29.9 pg Normal 27.0-33.0 [facility] Comment on above: Order Comment: No: D o not add to previous draw Performed By: #### 8 5499 #### [facility] [address] [place] [address], [facility] MCHC (RBC) [Mass/Vol] 33.2 g/dL Normal 32.0-35.0 [facility] Comment on above: Order Comment: No: D o not add to previous draw Performed By: #### 8 [id number] #### [facility] [address] [place] [address], [facility] MCV (RBC) [Entitic vol] 89.9 fL Normal 82.0-98.0 [facility] Comment on above: Order Comment: No: D o not add to previous draw Performed By: #### 8 [id number] #### [facility] [address] [place] [address], [facility] Nucleated RBC/100 WBC (Bld) [Ratio] 0 % Normal 0-0 [facility] Comment on above: Order Comment: No: D o not add to previous draw Performed By: #### 8 [id number] #### [facility] [address] [place] [address], [facility] PLAT CNT 119 10*3/uL Low 150-[address] [facility] Comment on above: Order Comment: No: D o not add to previous draw Performed By: #### 8 [id number] #### [facility] [address] [address], [facility] RBC (Bld) [#/Vol] 3.35 10*6/uL Low 3.80-5.00 The [facility] Comment on above: Order Comment: No: D o not add to previous draw Performed By: #### 8 [id number] #### [facility] [address] [place] [id number], [facility] WBC (Bld) [#/Vol] 16.59 10*3/uL High 4.00-10.60 [facility] Comment on above: Order Comment: No: D o not add to previous draw Performed By: #### 8 [id number] #### [facility] [address] [place] [id number], [facility] MAGNESIUM BLOODon 04-04-2021 Magnesium [Mass/Vol] 1.7 mg/dL Low 1.9-2.7 [facility] Comment on above: Order Comment: No: D o not add to previous draw Performed By: #### 3 0965 #### [facility] [address] [place] [address], [facility] POC GLUCOSE LABon 04-04-2021 Glucose [Mass/Vol] 183 mg/dL High 70-100 [facility] Comment on above: Performed By: #### 8 [id number] #### [facility] [address] [facility] [place] [address], [place] Glucose [Mass/Vol] 132 mg/dL High 70-100 [facility] Comment on above: Performed By: #### 3 1595 #### [facility] [address] [facility] [place] [address], [place] Glucose [Mass/Vol] 104 mg/dL High 70-100 [facility] Comment on above: Performed By: #### 8 5499 #### [facility] [address] [facility] [place] [place] [address], [place] Glucose [Mass/Vol] 121 mg/dL High 70-100 [facility] Comment on above: Performed By: #### 8 5499 #### [facility] [address] [facility] [place] [address], [place] PORTABLE CHEST 1 VIEWon 03-20 PORTABLE CHEST 1 VIEW [facility] Department of Radiology [address] [place] [id number] Patient Name: AMBAR BREWSTER : 1950 Sex: F Age: Race: White Pt. Location: [place] [address] Patient Status: I Ordered Date: 04/04/2021 5:00:00 [...] today. Electronically signed: Roney Vigil. Transcribed by: [email or web address], User Resident: Electronically Signed by: RONEY VIGIL @ 04/04/2021 06:56 AM Normal [facility] Comment on above: Order Comment: Atele ctasis APTTon 04-03-2021 aPTT Coag (Bld) [Time] 33.2 s Normal 25.0-35.0 [facility] Comment on above: Order Comment: post [...] PURPOSE. Performed By: #### 8 [id number] #### [facility] [address] [place] [address], [facility] BASIC METABOLIC PANELon 07- Calcium [Mass/Vol] 8.5 mg/dL Low 8.6-10.3 [facility] Comment on above: Order Comment: Check Chest Tube Position, ON ARRIVAL TO CVU Performed By: #### 0 0071, 57677 ####[facility] [place] [address], [facility] Chloride [Moles/Vol] 107 mmol/L Normal 98-107 [facility] Comment on above: Order Comment: Check Chest Tube Position, ON ARRIVAL TO CVU Performed By: #### 0 0071, 75133 ####[facility] [facility] [place] [place] [address], [facility] CO2 [Moles/Vol] 26 mmol/L Normal 21-31 [facility] Comment on above: Order Comment: Check Chest Tube Position, ON ARRIVAL TO CVU Performed By: #### 0 0071, 60580 ####[facility] [facility] [place] [place] [address], [facility] Creatinine [Mass/Vol] 0.56 mg/dL Low 0.60-1.20 [facility] Comment on above: Order Comment: Check Chest Tube Position, ON ARRIVAL TO CVU Performed By: #### 0 0071, 84230 ####[facility] [facility] [place] [address], [facility] GFR/1.73 sq M.predicted among blacks MDRD (S/P/Bld) [Vol rate/Area] mL/min/{1.73_m2} Normal >60 [facility] Comment on above: Order Comment: Check Chest Tube Position, ON ARRIVAL TO CVU Performed By: #### 0 0071, 64838 ####[facility] [place] [address], [facility] GFR/1.73 sq M.predicted among non-blacks MDRD (S/P/Bld) [Vol rate/Area] mL/min/{1.73_m2} Normal >60 [facility] Comment on above: Order Comment: Check Chest Tube Position, ON ARRIVAL TO CVU Performed By: #### 0 0071, 20855 ####[facility] [place] [address], [facility] Glucose [Mass/Vol] 123 mg/dL High 70-100 [facility] Comment on above: Order Comment: Check Chest Tube Position, ON ARRIVAL TO CVU Performed By: #### 0 0071, 34442 ####[facility] [place] [address], [facility] Potassium [Moles/Vol] 4.2 mmol/L Normal 3.5-5.1 [facility] Comment on above: Order Comment: Check Chest Tube Position, ON ARRIVAL TO CVU Performed By: #### 0 0071, 24058 ####[facility] [place] [address], [facility] Sodium [Moles/Vol] 137 mmol/L Normal 136-145 [facility] Comment on above: Order Comment: Check Chest Tube Position, ON ARRIVAL TO CVU Performed By: #### 0 0071, 60849 ####[facility] [place] [address], [facility] Urea nitrogen [Mass/Vol] 12 mg/dL Normal 7-25 [facility] Comment on above: Order Comment: Check Chest Tube Position, ON ARRIVAL TO CVU Performed By: #### 0 0071, 53405 ####[facility] [place] [address], [facility] CBC COMPLETE BLOOD COUNTon 0 - Erythrocyte distribution width (RBC) [Ratio] 16.4 % High 11.5-15.0 [facility] Comment on above: Order Comment: post op day 1No: Do not add to previous draw Performed By: #### 8 5499 #### [facility] [address] [place] [address], [facility] Hematocrit (Bld) [Volume fraction] 32.0 % Low 36.0-45.0 [facility] Comment on above: Order Comment: post op day 1No: Do not add to previous draw Performed By: #### 8 5499 #### [facility] [address] [place] [address], [facility] Hemoglobin (Bld) [Mass/Vol] 11.0 g/dL Low 12.0-15.0 [facility] Comment on above: Order Comment: post op day 1No: Do not add to previous draw Performed By: #### 8 5499 #### [facility] [address] [place] [address], [facility] MCH (RBC) [Entitic mass] 30.0 pg Normal 27.0-33.0 [facility] Comment on above: Order Comment: post op day 1No: Do not add to previous draw Performed By: #### 8 5499 #### [facility] [address] [place] [id number], [facility] MCHC (RBC) [Mass/Vol] 34.4 g/dL Normal 32.0-35.0 [facility] Comment on above: Order Comment: post op day 1No: Do not add to previous draw Performed By: #### 8 5499 #### [facility] [address] [place] [id number], [facility] MCV (RBC) [Entitic vol] 87.2 fL Normal 82.0-98.0 [facility] Comment on above: Order Comment: post op day 1No: Do not add to previous draw Performed By: #### 8 5499 #### [facility] [address] [facility] [place] [id number], [facility] Nucleated RBC/100 WBC (Bld) [Ratio] 0 % Normal 0-0 [facility] Comment on above: Order Comment: post op day 1No: Do not add to previous draw Performed By: #### 8 5499 #### [facility] [address] [place] [address], [place] PLAT CNT 125 10*3/uL Low 150-[address] [facility] Comment on above: Order Comment: post op day 1No: Do not add to previous draw Performed By: #### 8 5499 #### [facility] [address] [place] [address], [place] RBC (Bld) [#/Vol] 3.67 10*6/uL Low 3.80-5.00 [facility] Comment on above: Order Comment: post op day 1No: Do not add to previous draw Performed By: #### 8 5499 #### [facility] [address] [place] [address], [place] WBC (Bld) [#/Vol] 14.47 10*3/uL High 4.00-10.60 [facility] Comment on above: Order Comment: post op day 1No: Do not add to previous draw Performed By: #### 8 5499 #### [facility] [address] [place] [address], [facility] COOXIMETRYon 04-03-2021 COHB 2 % Normal [facility] Comment on above: Performed By: #### 3 0965 #### [facility] [address] [place] [address], [facility] METHB 1 % Normal [facility] Comment on above: Performed By: #### 3 65 #### [facility] [address] [place] [address], [place] Oxygen saturation in Blood 70.5 % Normal 65.0-75.0 [facility] Comment on above: Performed By: #### 3 65 #### [facility] [address] [place] [address], [place] THB 11.0 g/dL Normal [facility] Comment on above: Performed By: #### 3 0965 #### [facility] [address] [place] [address], [facility] LACTATE BLOODon 04-03-2021 Lactate [Moles/Vol] 0.9 mmol/L Normal 0.5-2.2 [facility] Comment on above: Order Comment: Check Chest Tube Position, ON ARRIVAL TO CVU Performed By: #### 1 0054 ####[facility] MAGNESIUM BLOODon 04-03-2021 Magnesium [Mass/Vol] 2.2 mg/dL Normal 1.9-2.7 [facility] Comment on above: Order Comment: Check Chest Tube Position, ON ARRIVAL TO CVU Performed By: #### 0 0071, 67734 ####[facility] Operative Reporton 1 Operative Report MR#: [id number] I [facility] Pt. Name: Ambar Brewster Room #: NAYE [id number] Discharge Date: Birthdate: 1950 OPERATIVE REPORT DATE [...] harvesting of the left greater saphenous vein. PERSONAL SECURITY SPECIALIST: Steer. ANESTHESIA: General with endotracheal intubation. ANESTHESIOLOGIST: Zita [...] and ascending aorta was cannulated with an 18-Ivorian Opti cannula using Seldinger technique. This was [...] to the posterior descending artery and a [id number] anastomosis was constructed in a cruciate fashion [...] p (more content not included)... Normal [facility] POC GLUCOSE LABon 04-03-2021 Glucose [Mass/Vol] 133 mg/dL High 70-100 [facility] Comment on above: Performed By: #### 3 1595 #### [facility] [address] [facility] [place] [address], [facility] Glucose [Mass/Vol] 112 mg/dL High 70-100 [facility] Comment on above: Performed By: #### 3 1595 #### [facility] [address] [facility] [place] [address], [place] Glucose [Mass/Vol] 120 mg/dL High 70-100 [facility] Comment on above: Performed By: #### 8 5499 #### [facility] [address] [facility] [place] [address], [facility] Glucose [Mass/Vol] 123 mg/dL High 70-100 [facility] Comment on above: Performed By: #### 3 1495 #### [facility] [address] [facility] [address], [place] Glucose [Mass/Vol] 105 mg/dL High 70-100 [facility] Comment on above: Performed By: #### 8 5499 #### [facility] [address] [place] [address], [place] Glucose [Mass/Vol] 127 mg/dL High 70-100 [facility] Comment on above: Performed By: #### 3 1595 #### [facility] [address] [facility] [place] [address], [place] Glucose [Mass/Vol] 154 mg/dL High 70-100 [facility] Comment on above: Performed By: #### 3 1595 #### [facility] [address] [place] [address], [place] Glucose [Mass/Vol] 149 mg/dL High 70-100 [facility] Comment on above: Performed By: #### 3 1595 #### [facility] [address] [place] [address], [place] PORTABLE CHEST 1 VIEW 03-20 PORTABLE CHEST 1 VIEW [facility] Department of Radiology [address] [place] [id number] Patient Name: AMBAR BREWSTER : 1950 Sex: F Age: Race: White Pt. Location: [id number] Patient Status: I Ordered Date: 04/03/2021 5:30:00 [...] of median sternotomy. Removal of previously seen Bishop-Ayan catheter, mediastinal drain, left basilar chest tube. [...] Patel. Electronically signed: DENISE PATEL. Transcribed by: [email or web address], User Resident: Electronically Signed by: DENISE PATEL @ 04/03/2021 07:17 PM Normal [facility] Comment on above: Order Comment: evalu ate for Pneumothorax PORTABLE CHEST 1 VIEW [facility] Department of Radiology [address] [place] [phone] Patient Name: AMBAR BREWSTER : 1950 Sex: F Age: Race: White Pt. Location: [place] [address] Patient Status: I Ordered Date: 04/03/2021 7:00:00 [...] tube and NG tube have been removed, Bishop-Ayan catheter tip remains in the pulmonary outflow tract. Mediastinal and left-sided chest tubes remain no pneumothorax identified. Minimal bibasilar atelectasis suggested, otherwise lungs IMPRESSION: Status post extubation. Minimal atelectasis over both lung bases. No change in chest tubes. Electronically signed: Roney Vigil. Transcribed by: [email or web address], User Resident: Electronically Signed by: RONEY VIGIL @ 04/03/2021 09:03 AM Normal [facility] Comment on above: Order Comment: evalu ate Chest Tube Position PROTHROMBIN TIMEon INR Coag (PPP) [Relative time] 1.33 {INR} High 0.91-1.16 [facility] Comment on above: Order Comment: post op day 1No: Do not add to previous draw Result Comment: [facility] P RECOMMENDED INR FOR WARFARIN THERAPY -------- [...] 1995;108:[id number]. Performed By: #### 8 5499 #### [facility] [address] PT Coag (PPP) [Time] 16.5 s High 12.3-14.8 [facility] Comment on above: Order Comment: post op day 1No: Do not add to previous draw Result Comment: ALL RESULTS MUST BE INTERPRETED WITH RESPECT TO BLOOD DRAWING ARTIFACT OR DILUTION ERROR OF ANTICOAGULANT AT THE TIME OF SAMPLING. Performed By: #### 8 5499 #### [facility] [address] ACTIVATED CLOTTING TIMEon ACTIVATED CLOTTING TIME 121 sec Normal 82-152 [facility] Comment on above: Performed By: #### 8 5499 #### [facility] [address] [place] [address], [facility] ACTIVATED CLOTTING TIME 126 sec Normal 82-152 [facility] Comment on above: Performed By: #### 8 [id number] #### [facility] [address] [place] [address], [facility] ACTIVATED CLOTTING TIME 132 sec Normal 82-152 [facility] Comment on above: Performed By: #### 3 0739 #### [facility] [address] [place] [address], [place] ACTIVATED CLOTTING TIME 655 sec High 82-152 [facility] Comment on above: Performed By: #### 3 1976 #### [facility] [address] [place] [address], [place] ACTIVATED CLOTTING TIME 484 sec High 82-152 [facility] Comment on above: Performed By: #### 3 1976 #### [facility] [address] [place] [address], [place] ACTIVATED CLOTTING TIME 599 sec High 82-152 [facility] Comment on above: Performed By: #### 8 9 #### [facility] [address] [place] [address], [place] ACTIVATED CLOTTING TIME 694 sec High 82-152 [facility] Comment on above: Performed By: #### 8 5499 #### [facility] [address] [place] [address], [place] ACTIVATED CLOTTING TIME 484 sec High 82-152 [facility] Comment on above: Performed By: #### 8 5499 #### [facility] [address] [place] [address], [place] ACTIVATED CLOTTING TIME 416 sec High 82-152 [facility] Comment on above: Performed By: #### 3 1976 #### [facility] [address] [place] [address], [place] ACTIVATED CLOTTING TIME 121 sec Normal 82-152 [facility] Comment on above: Performed By: #### 3 1976 #### [facility] [address] [place] [address], [place] APTTon 04-02-2021 aPTT Coag (Bld) [Time] 32.6 s Normal 25.0-35.0 [facility] Comment on above: Order Comment: No: [...] PURPOSE. Performed By: #### 8 [id number] #### [facility] [address] aPTT Coag (Bld) [Time] 43.1 s High 25.0-35.0 [place] Comment on above: Result Comment: ALL RESULTS [...] PURPOSE. Performed By: #### 8 5499 #### [facility] [address] ARTERIAL BLOOD GAS WITH ICAo n 04-02-2021 BASE EXCESS -5 mmol/L Low -2-3 [facility] Comment on above: Performed By: #### 3 65 #### [facility] [address] [facility] [address] BILEVEL 5 Normal [place] Comment on above: Performed By: #### 3 0965 #### [facility] [address] DELIVERY SYSTEMS MV Normal [facility] Comment on above: Performed By: #### 3 65 #### [facility] [address] [place] [address], [facility] FIO2 40 % Normal [place] Comment on above: Performed By: #### 3 65 #### [facility] [address] [place] [address], [facility] HCO3 (Bld) [Moles/Vol] 20 mmol/L Low 21-28 [facility] Comment on above: Performed By: #### 3 0965 #### [facility] [address] [place] [address], [facility] IONIZED CALCIUM 1.28 mmol/L Normal 1.13-1.[address] [facility] Comment on above: Performed By: #### 3 65 #### [facility] [address] [place] [address], [place] MIN VOLUME 7.1 Normal [place] Comment on above: Performed By: #### 3 0965 #### [facility] [address] [place] [address], [place] MODALITY SPONT Normal [facility] Comment on above: Performed By: #### 3 0965 #### [facility] [address] [place] [address], [place] Oxygen (Bld) [Partial pressure] 156 mm[Hg] Critically high 83-108 [facility] Comment on above: Performed By: #### 3 0965 #### [facility] [address] [place] [address], [place] Oxygen saturation in Blood 97.2 % High 94.0-97.0 [facility] Comment on above: Performed By: #### 3 65 #### [facility] [address] [place] [address], [facility] PCO2 37 mmHg Normal 35-45 [facility] Comment on above: Performed By: #### 3 0965 #### [facility] [address] [place] [address], [place] PEEP 6.0 CMH20 Normal [place] Comment on above: Performed By: #### 3 0965 #### [facility] [address] [place] [address], [place] pH (Bld) 7.34 [pH] Low 7.35-7.45 [facility] Comment on above: Performed By: #### 3 0965 #### [facility] [address] [place] [address], [facility] BASE EXCESS -5 mmol/L Low -2-[address] [facility] Comment on above: Order Comment: on ar rival to CVU Performed By: #### 8 [id number] #### [facility] [facility] [address] [place] [address], [place] DELIVERY SYSTEMS MV Normal [facility] Comment on above: Order Comment: on ar rival to CVU Performed By: #### 8 [id number] #### [facility] [address] [place] [address], [place] FIO2 40 % Normal [place] Comment on above: Order Comment: on ar rival to CVU Performed By: #### 8 [id number] #### [facility] [address] [place] [address], [facility] HCO3 (Bld) [Moles/Vol] 19 mmol/L Low 21-28 [place] Comment on above: Order Comment: on ar rival to CVU Performed By: #### 8 [id number] #### [facility] [address] [place] [address], [facility] IONIZED CALCIUM 1.38 mmol/L High 1.13-1.32 [facility] Comment on above: Order Comment: on ar rival to CVU Performed By: #### 8 [id number] #### [facility] [address] [place] [address], [place] MIN VOLUME 8.0 Normal [place] Comment on above: Order Comment: on ar rival to CVU Performed By: #### 8 5499 #### [facility] [address] [place] [address], [place] MODALITY SIMV Normal [place] Comment on above: Order Comment: on ar rival to CVU Performed By: #### 8 [id number] #### [facility] [address] [place] [address], [place] Oxygen (Bld) [Partial pressure] 192 mm[Hg] Critically high 83-108 [facility] Comment on above: Order Comment: on ar rival to CVU Performed By: #### 8 [id number] #### [facility] [address] [place] [address], [place] Oxygen saturation in Blood 97.6 % High 94.0-97.0 [facility] Comment on above: Order Comment: on ar rival to CVU Performed By: #### 8 [id number] #### [facility] [address] [place] [address], [place] PCO2 31 mmHg Low 35-45 [facility] Comment on above: Order Comment: on ar rival to CVU Performed By: #### 8 [id number] #### [facility] [address] [place] [address], [place] PEEP 5.0 CMH20 Normal [facility] Comment on above: Order Comment: on ar rival to CVU Performed By: #### 8 [id number] #### [facility] [address] [place] [address], [place] pH (Bld) 7.39 [pH] Normal 7.35-7.45 [facility] Comment on above: Order Comment: on ar rival to CVU Performed By: #### 8 [id number] #### [facility] [address] [place] [address], [place] PRESSURE SUPPORT 8 Normal [facility] Comment on above: Order Comment: on ar rival to CVU Performed By: #### 8 [id number] #### [facility] [address] [place] [address], [place] Respiratory rate 14 /min Normal [facility] Comment on above: Order Comment: on ar rival to CVU Performed By: #### 8 [id number] #### [facility] [address] [place] [address], [place] TIDAL VOLUME (VT) CC 450 Normal [facility] Comment on above: Order Comment: on ar rival to CVU Performed By: #### 8 [id number] #### [facility] [address] [place] [address], [facility] BASIC METABOLIC PANELon 07- Calcium [Mass/Vol] 8.8 mg/dL Normal 8.6-10.3 [facility] Comment on above: Order Comment: Check Chest Tube Position, ON ARRIVAL TO CVU Performed By: #### 0 0071, 01928, 00055 ####[facility] [place] [address], [facility] Chloride [Moles/Vol] 108 mmol/L High 98-107 [facility] Comment on above: Order Comment: Check Chest Tube Position, ON ARRIVAL TO CVU Performed By: #### 0 0071, 94436, 60933 ####[facility] [place] [address], [facility] CO2 [Moles/Vol] 25 mmol/L Normal 21-31 [facility] Comment on above: Order Comment: Check Chest Tube Position, ON ARRIVAL TO CVU Performed By: #### 0 0071, 16100, 44000 ####[facility] [place] [address], [facility] Creatinine [Mass/Vol] 0.57 mg/dL Low 0.60-1.20 [facility] Comment on above: Order Comment: Check Chest Tube Position, ON ARRIVAL TO CVU Performed By: #### 0 0071, 26709, 34537 ####[facility] [place] [address], [facility] GFR/1.73 sq M.predicted among blacks MDRD (S/P/Bld) [Vol rate/Area] mL/min/{1.73_m2} Normal >60 [facility] Comment on above: Order Comment: Check Chest Tube Position, ON ARRIVAL TO CVU Performed By: #### 0 0071, 62720, 06896 ####[facility] [place] [address], [place] GFR/1.73 sq M.predicted among non-blacks MDRD (S/P/Bld) [Vol rate/Area] mL/min/{1.73_m2} Normal >60 [facility] Comment on above: Order Comment: Check Chest Tube Position, ON ARRIVAL TO CVU Performed By: #### 0 0071, 19719, 38773 ####[facility] [place] [address], [place] Glucose [Mass/Vol] 164 mg/dL High 70-100 [facility] Comment on above: Order Comment: Check Chest Tube Position, ON ARRIVAL TO CVU Performed By: #### 0 0071, 20467, 75598 ####[facility] [place] [address], [place] Potassium [Moles/Vol] 3.8 mmol/L Normal 3.5-5.1 [facility] Comment on above: Order Comment: Check Chest Tube Position, ON ARRIVAL TO CVU Performed By: #### 0 0071, 30108, 31442 ####[facility] [place] [address], [place] Sodium [Moles/Vol] 139 mmol/L Normal 136-145 [facility] Comment on above: Order Comment: Check Chest Tube Position, ON ARRIVAL TO CVU Performed By: #### 0 0071, 08231, 83048 ####[facility] [place] [address], [place] Urea nitrogen [Mass/Vol] 10 mg/dL Normal 7-25 [facility] Comment on above: Order Comment: Check Chest Tube Position, ON ARRIVAL TO CVU Performed By: #### 0 0071, 12323, 44709 ####[facility] [place] [address], [place] Calcium [Mass/Vol] 9.4 mg/dL Normal 8.6-10.3 [facility] Comment on above: Performed By: #### 0 0071, 27513 ####[facility] [facility] [place] [address], [facility] Chloride [Moles/Vol] 111 mmol/L High 98-107 [facility] Comment on above: Performed By: #### 0 0071, 58929 ####[facility] [place] [address], [place] CO2 [Moles/Vol] 23 mmol/L Normal 21-31 [facility] Comment on above: Performed By: #### 0 0071, 76668 ####[facility] [place] [address], [facility] Creatinine [Mass/Vol] 0.49 mg/dL Low 0.60-1.20 [facility] Comment on above: Performed By: #### 0 0071, 19061 ####[facility] [facility] [place] [address], [place] GFR/1.73 sq M.predicted among blacks MDRD (S/P/Bld) [Vol rate/Area] mL/min/{1.73_m2} Normal >60 [facility] Comment on above: Performed By: #### 0 0071, 85306 ####[facility] [facility] [place] [address], [place] GFR/1.73 sq M.predicted among non-blacks MDRD (S/P/Bld) [Vol rate/Area] mL/min/{1.73_m2} Normal >60 [facility] Comment on above: Performed By: #### 0 0071, 82927 ####[facility] [place] [address], [place] Glucose [Mass/Vol] 138 mg/dL High 70-100 [facility] Comment on above: Performed By: #### 0 0071, 49199 ####[facility] [place] [address], [facility] Potassium [Moles/Vol] 3.9 mmol/L Normal 3.5-5.1 [facility] Comment on above: Performed By: #### 0 0071, 85332 ####[facility] [place] [address], [place] Sodium [Moles/Vol] 140 mmol/L Normal 136-145 [facility] Comment on above: Performed By: #### 0 0071, 59599 ####[facility] [place] [address], [facility] Urea nitrogen [Mass/Vol] 8 mg/dL Normal 7-25 [facility] Comment on above: Performed By: #### 0 0071, 12068 ####[facility] [facility] [place] [address], [facility] CBC COMPLETE BLOOD COUNTon 0 - Erythrocyte distribution width (RBC) [Ratio] 15.9 % High 11.5-15.0 [place] Comment on above: Order Comment: No: D o not add to previous draw Performed By: #### 8 3369 #### [facility] [address] [place] [address], [facility] Hematocrit (Bld) [Volume fraction] 34.4 % Low 36.0-45.0 [facility] Comment on above: Order Comment: No: D o not add to previous draw Performed By: #### 8 3239 #### [facility] [address] [place] [address], [facility] Hemoglobin (Bld) [Mass/Vol] 11.9 g/dL Low 12.0-15.0 [facility] Comment on above: Order Comment: No: D o not add to previous draw Performed By: #### 8 7739 #### [facility] [address] [place] [address], [facility] IMM PLATELET FRAC 3.9 % Normal 0.8-6.3 [facility] Comment on above: Order Comment: No: D o not add to previous draw Performed By: #### 8 5499 #### [facility] [address] [place] [id number], [facility] MCH (RBC) [Entitic mass] 30.6 pg Normal 27.0-33.0 [facility] Comment on above: Order Comment: No: D o not add to previous draw Performed By: #### 8 5499 #### [facility] [address] [place] [address], [facility] MCHC (RBC) [Mass/Vol] 34.6 g/dL Normal 32.0-35.0 [facility] Comment on above: Order Comment: No: D o not add to previous draw Performed By: #### 8 5499 #### [facility] [address] [place] [address], [facility] MCV (RBC) [Entitic vol] 88.4 fL Normal 82.0-98.0 [facility] Comment on above: Order Comment: No: D o not add to previous draw Performed By: #### 8 5499 #### [facility] [address] [facility] [place] [place] [address], [facility] Nucleated RBC/100 WBC (Bld) [Ratio] 0 % Normal 0-0 [facility] Comment on above: Order Comment: No: D o not add to previous draw Performed By: #### 8 5499 #### [facility] [address] [address], [facility] PLAT CNT 140 10*3/uL Low 150-[address] [facility] Comment on above: Order Comment: No: D o not add to previous draw Performed By: #### 8 5499 #### [facility] [address] [place] [address], [facility] RBC (Bld) [#/Vol] 3.89 10*6/uL Normal 3.80-5.00 [facility] Comment on above: Order Comment: No: D o not add to previous draw Performed By: #### 8 5499 #### [facility] [address] [place] [address], [facility] WBC (Bld) [#/Vol] 19.57 10*3/uL High 4.00-10.60 [facility] Comment on above: Order Comment: No: D o not add to previous draw Performed By: #### 8 5499 #### [facility] [address] [address], [facility] Erythrocyte distribution width (RBC) [Ratio] 14.7 % Normal 11.5-15.0 [facility] Comment on above: Performed By: #### 8 [id number] #### [facility] [address] Hematocrit (Bld) [Volume fraction] 27.3 % Low 36.0-45.0 [facility] Comment on above: Performed By: #### 8 [id number] #### [facility] [address] [facility] [place] [address], [facility] Hemoglobin (Bld) [Mass/Vol] 9.1 g/dL Low 12.0-15.0 [facility] Comment on above: Performed By: #### 8 5499 #### [facility] [address] [place] [address], [facility] MCH (RBC) [Entitic mass] 30.3 pg Normal 27.0-33.0 [facility] Comment on above: Performed By: #### 8 5499 #### [facility] [address] [place] [address], [facility] MCHC (RBC) [Mass/Vol] 33.3 g/dL Normal 32.0-35.0 [facility] Comment on above: Performed By: #### 8 5499 #### [facility] [address] [place] [address], [facility] MCV (RBC) [Entitic vol] 91.0 fL Normal 82.0-98.0 [place] Comment on above: Performed By: #### 8 [id number] #### [facility] [address] [facility] [place] [address], [facility] Nucleated RBC/100 WBC (Bld) [Ratio] 0 % Normal 0-0 [facility] Comment on above: Performed By: #### 8 [id number] #### [facility] [address] [facility] [place] [address], [facility] PLAT CNT 103 10*3/uL Low 150-[address] [facility] Comment on above: Performed By: #### 8 [id number] #### [facility] [address] [facility]. [address] RBC (Bld) [#/Vol] 3.00 10*6/uL Low 3.80-5.00 [facility] Comment on above: Performed By: #### 8 [id number] #### [facility] [address] [facility] [place] [address], [facility] WBC (Bld) [#/Vol] 15.30 10*3/uL High 4.00-10.60 [place] Comment on above: Performed By: #### 8 [id number] #### [facility] [address] [facility]. [address] FIBRINOGENon 04-02-2021 FIBRINOGEN 138 mg/dL Low 150-425 [facility] Comment on above: Performed By: #### 8 [id number] #### [facility] [address] [facility]. [address] FRESH FROZEN PLASMA 2 UNITSo n 04-02-2021 PRODUCT CODE 1 E2701 Normal [facility] Comment on above: Order Comment: INR: 2.39 ,PTT: 43.1 at the time of order ;Indication: Performed By: #### 8 5499 #### [facility] [address] PRODUCT CODE 2 E2701 Normal [facility] Comment on above: Order Comment: INR: 2.39 ,PTT: 43.1 at the time of order ;Indication: Performed By: #### 8 5499 #### [facility] [address] PRODUCT STATUS 1 RE Normal [facility] Comment on above: Order Comment: INR: 2.39 ,PTT: 43.1 at the time of order ;Indication: Result Comment: Resu lt changed by IF on 04/04/2021 01:00. The previous value was XX. Performed By: #### 8 [id number] #### [facility] [address] PRODUCT STATUS 2 RE Normal [facility] Comment on above: Order Comment: INR: 2.39 ,PTT: 43.1 at the time of order ;Indication: Result Comment: Resu lt changed by IF on 04/04/2021 01:00. The previous value was XX. Performed By: #### 8 [id number] #### [facility] [address] [place] [address], [facility] UNIT ABO 1 A Normal [place] Comment on above: Order Comment: INR: 2.39 ,PTT: 43.1 at the time of order ;Indication: Performed By: #### 8 5499 #### [facility] [address] [place] [address], [facility] UNIT ABO 2 A Normal [place] Comment on above: Order Comment: INR: 2.39 ,PTT: 43.1 at the time of order ;Indication: Performed By: #### 8 5499 #### [facility] [address] [place] [id number], [facility] UNIT ID 1 [id number] Normal [facility] Comment on above: Order Comment: INR: 2.39 ,PTT: 43.1 at the time of order ;Indication: Performed By: #### 8 5499 #### [facility] [address] [place] [address], [facility] UNIT ID 2 [id number] Normal [facility] Comment on above: Order Comment: INR: 2.39 ,PTT: 43.1 at the time of order ;Indication: Performed By: #### 8 5499 #### [facility] [address] [place] [address], [facility] UNIT RH 1 Positive Normal [place] Comment on above: Order Comment: INR: 2.39 ,PTT: 43.1 at the time of order ;Indication: Performed By: #### 8 [id number] #### [facility] [address] [place] [address], [facility] UNIT RH 2 Positive Normal [facility] Comment on above: Order Comment: INR: 2.39 ,PTT: 43.1 at the time of order ;Indication: Performed By: #### 8 [id number] #### [facility] [address] [place] [address], [facility] LACTATE BLOODon 04-02-2021 Lactate [Moles/Vol] 1.5 mmol/L Normal 0.5-2.2 [facility] Comment on above: Performed By: #### 3 0965 #### [facility] [address] [place] [address], [facility] MAGNESIUM BLOODon 04-02-2021 Magnesium [Mass/Vol] 1.8 mg/dL Low 1.9-2.7 [facility] Comment on above: Order Comment: Check Chest Tube Position, ON ARRIVAL TO CVU Performed By: #### 0 0071, 78445, 33789 ####[facility] [place] [address], [facility] Magnesium [Mass/Vol] 2.6 mg/dL Normal 1.9-2.7 [place] Comment on above: Performed By: #### 0 0071, 16023 ####[facility] [place] [address], [place] PERFUSION BLOOD PANELon 03-20 BASE EXCESS -1.0 mmol/L Normal -2.0-3.[address] [facility] Comment on above: Performed By: #### 3 1976 #### [facility] [address] [place] [address], [place] Glucose [Mass/Vol] 139 mg/dL High 70-105 [facility] Comment on above: Performed By: #### 3 1976 #### [facility] [address] [place] [address], [place] Hematocrit (Bld) [Volume fraction] 24 % Low 38-51 [facility] Comment on above: Performed By: #### 3 1976 #### [facility] [address] [place] [address], [place] Hemoglobin (Bld) [Mass/Vol] 8.2 g/dL Low 12.0-17.0 [place] Comment on above: Performed By: #### 3 1976 #### [facility] [address] [place] [address], [place] IONIZED CALCIUM 1.35 mmol/L High 1.12-1.[address] [facility] Comment on above: Performed By: #### 3 1976 #### [facility] [address] [place] [address], [place] Oxygen (Bld) [Partial pressure] 530.0 mm[Hg] High 80.0-105.0 [facility] Comment on above: Performed By: #### 3 1976 #### [facility] [address] [place] [address], [place] PCO2 40.1 mmHg Normal 35.0-45.0 [facility] Comment on above: Performed By: #### 3 1976 #### [facility] [address] [place] [address], [facility] pH (Bld) 7.39 [pH] Normal 7.35-7.45 [place] Comment on above: Performed By: #### 3 1976 #### [facility] [address] [place] [address], [place] Potassium [Moles/Vol] 4.1 mmol/L Normal 3.5-4.9 [facility] Comment on above: Performed By: #### 3 1976 #### [facility] [address] [place] [address], [place] Sodium [Moles/Vol] 140 mmol/L Normal 138-146 [facility] Comment on above: Performed By: #### 3 1976 #### [facility] [address] [place] [address], [facility] BASE EXCESS 2.0 mmol/L Normal -2.0-3.0 [facility] Comment on above: Performed By: #### 3 1976 #### [facility] [address] [place] [address], [place] Glucose [Mass/Vol] 146 mg/dL High 70-105 [facility] Comment on above: Performed By: #### 3 1976 #### [facility] [address] [place] [address], [place] Hematocrit (Bld) [Volume fraction] 16 % Low 38-51 [facility] Comment on above: Performed By: #### 3 1976 #### [facility] [address] [place] [address], [place] Hemoglobin (Bld) [Mass/Vol] 5.4 g/dL Critically low 12.0-17.0 [place] Comment on above: Performed By: #### 3 1976 #### [facility] [address] [place] [address], [place] IONIZED CALCIUM 1.15 mmol/L Normal 1.12-1.32 [facility] Comment on above: Performed By: #### 3 1976 #### [facility] [address] [place] [address], [place] Oxygen (Bld) [Partial pressure] 529.0 mm[Hg] High 80.0-105.0 [facility] Comment on above: Performed By: #### 3 1976 #### [facility] [address] [place] [address], [place] PCO2 37.9 mmHg Normal 35.0-45.0 [facility] Comment on above: Performed By: #### 3 1976 #### [facility] [address] [place] [address], [place] pH (Bld) 7.44 [pH] Normal 7.35-7.45 [facility] Comment on above: Performed By: #### 3 1976 #### [facility] [address] [place] [address], [place] Potassium [Moles/Vol] 3.9 mmol/L Normal 3.5-4.9 [facility] Comment on above: Performed By: #### 3 1976 #### [facility] [address] [place] [address], [place] Sodium [Moles/Vol] 141 mmol/L Normal 138-146 [facility] Comment on above: Performed By: #### 3 1976 #### [facility] [address] [place] [address], [place] BASE EXCESS 2.0 mmol/L Normal -2.0-3.[address] [facility] Comment on above: Performed By: #### 8 [id number] #### [facility] [address] [place] [address], [place] Glucose [Mass/Vol] 168 mg/dL High 70-105 [facility] Comment on above: Performed By: #### 8 [id number] #### [facility] [address] [place] [address], [facility] Hematocrit (Bld) [Volume fraction] 17 % Low 38-51 [facility] Comment on above: Performed By: #### 8 [id number] #### [facility] [address] [facility] [place] [address], [facility] Hemoglobin (Bld) [Mass/Vol] 5.8 g/dL Critically low 12.0-17.0 [facility] Comment on above: Performed By: #### 8 [id number] #### [facility] [address] [facility] [place] [address], [facility] IONIZED CALCIUM 1.95 mmol/L Critically high 1.12-1.32 [facility] Comment on above: Performed By: #### 8 [id number] #### [facility] [address] [facility] [place] [address], [facility] Oxygen (Bld) [Partial pressure] 489.0 mm[Hg] High 80.0-105.0 [facility] Comment on above: Performed By: #### 8 [id number] #### [facility] [address] [facility] [place] [address], [facility] PCO2 41.5 mmHg Normal 35.0-45.0 [facility] Comment on above: Performed By: #### 8 [id number] #### [facility] [address] [facility] [place] [address], [facility] pH (Bld) 7.42 [pH] Normal 7.35-7.45 [facility] Comment on above: Performed By: #### 8 [id number] #### [facility] [address] [facility] [place] [address], [facility] Potassium [Moles/Vol] 4.7 mmol/L Normal 3.5-4.9 [facility] Comment on above: Performed By: #### 8 [id number] #### [facility] [address] [place] [address], [facility] Sodium [Moles/Vol] 136 mmol/L Low 138-146 [facility] Comment on above: Performed By: #### [id number] #### [facility] [address] [place] [address], [place] BASE EXCESS 0.0 mmol/L Normal -2.0-3.0 [facility] Comment on above: Performed By: #### [id number] #### [facility] [address] [place] [address], [place] Glucose [Mass/Vol] 126 mg/dL High 70-105 [facility] Comment on above: Performed By: #### 8 [id number] #### [facility] [address] [place] [address], [facility] Hematocrit (Bld) [Volume fraction] 16 % Low 38-51 [place] Comment on above: Performed By: #### 8 [id number] #### [facility] [address] [place] [address], [place] Hemoglobin (Bld) [Mass/Vol] 5.4 g/dL Critically low 12.0-17.0 [place] Comment on above: Performed By: #### 8 [id number] #### [facility] [address] [place] [address], [facility] IONIZED CALCIUM 0.94 mmol/L Low 1.12-1.[address] [facility] Comment on above: Performed By: #### 8 [id number] #### [facility] [address] [place] [address], [facility] Oxygen (Bld) [Partial pressure] 37.0 mm[Hg] Normal [place] Comment on above: Performed By: #### 8 [id number] #### [facility] [address] [place] [address], [place] PCO2 36.9 mmHg Low 41.0-51.0 [place] Comment on above: Performed By: #### 8 [id number] #### [facility] [address] [place] [address], [facility] pH (Bld) 7.43 [pH] High 7.31-7.41 [place] Comment on above: Performed By: #### 8 [id number] #### [facility] [address] [place] [address], [place] Potassium [Moles/Vol] 4.4 mmol/L Normal 3.5-4.9 [facility] Comment on above: Performed By: #### 8 [id number] #### [facility] [address] [place] [address], [place] Sodium [Moles/Vol] 140 mmol/L Normal 138-146 [facility] Comment on above: Performed By: #### 8 [id number] #### [facility] [address] [place] [address], [place] BASE EXCESS 3.0 mmol/L Normal -2.0-3.[address] [facility] Comment on above: Performed By: #### 8 [id number] #### [facility] [address] [place] [address], [place] Glucose [Mass/Vol] 117 mg/dL High 70-105 [facility] Comment on above: Performed By: #### 8 [id number] #### [facility] [address] [place] [address], [place] Hematocrit (Bld) [Volume fraction] 18 % Low 38-51 [facility] Comment on above: Performed By: #### 8 [id number] #### [facility] [address] [place] [address], [place] Hemoglobin (Bld) [Mass/Vol] 6.1 g/dL Low 12.0-17.0 [facility] Comment on above: Performed By: #### 8 [id number] #### [facility] [address] [place] [address], [facility] IONIZED CALCIUM 0.92 mmol/L Low 1.12-1.[address] [facility] Comment on above: Performed By: #### 8 [id number] #### [facility] [address] [place] [address], [facility] Oxygen (Bld) [Partial pressure] 445.0 mm[Hg] High 80.0-105.0 [place] Comment on above: Performed By: #### 8 [id number] #### [facility] [address] [place] [address], [facility] PCO2 36.6 mmHg Normal 35.0-45.0 [place] Comment on above: Performed By: #### 8 [id number] #### [facility] [address] [place] [address], [facility] pH (Bld) 7.48 [pH] High 7.35-7.45 [place] Comment on above: Performed By: #### 8 [id number] #### [facility] [address] [place] [address], [facility] Potassium [Moles/Vol] 4.4 mmol/L Normal 3.5-4.9 [place] Comment on above: Performed By: #### 8 [id number] #### [facility] [address] [place] [address], [facility] Sodium [Moles/Vol] 138 mmol/L Normal 138-146 [facility] Comment on above: Performed By: #### 8 [id number] #### [facility] [address] [place] [address], [facility] BASE EXCESS 4.0 mmol/L High -2.0-3.0 [facility] Comment on above: Performed By: #### 3 1977 #### [facility] [address] [place] [address], [place] Glucose [Mass/Vol] 118 mg/dL High 70-105 [facility] Comment on above: Performed By: #### 3 1976 #### [facility] [address] [place] [address], [place] Hematocrit (Bld) [Volume fraction] 20 % Low 38-51 [facility] Comment on above: Performed By: #### 3 1976 #### [facility] [address] [place] [address], [facility] Hemoglobin (Bld) [Mass/Vol] 6.8 g/dL Low 12.0-17.0 [facility] Comment on above: Performed By: #### 3 1976 #### [facility] [address] [place] [address], [facility] IONIZED CALCIUM 0.96 mmol/L Low 1.12-1.[address] [facility] Comment on above: Performed By: #### 3 1976 #### [facility] [address] [place] [address], [place] Oxygen (Bld) [Partial pressure] 466.0 mm[Hg] High 80.0-105.0 [facility] Comment on above: Performed By: #### 3 1976 #### [facility] [address] [place] [address], [facility] PCO2 35.3 mmHg Normal 35.0-45.0 [facility] Comment on above: Performed By: #### 3 1976 #### [facility] [address] [place] [address], [place] pH (Bld) 7.51 [pH] High 7.35-7.45 [facility] Comment on above: Performed By: #### 3 1976 #### [facility] [address] [place] [address], [place] Potassium [Moles/Vol] 4.3 mmol/L Normal 3.5-4.9 [facility] Comment on above: Performed By: #### 3 1976 #### [facility] [address] [place] [address], [facility] Sodium [Moles/Vol] 138 mmol/L Normal 138-146 [facility] Comment on above: Performed By: #### 3 1976 #### [facility] [address] [place] [address], [facility] BASE EXCESS 1.0 mmol/L Normal -2.0-3.0 [facility] Comment on above: Performed By: #### 3 1976 #### [facility] [address] [place] [address], [facility] Glucose [Mass/Vol] 92 mg/dL Normal 70-105 [facility] Comment on above: Performed By: #### 3 1976 #### [facility] [address] [place] [address], [facility] Hematocrit (Bld) [Volume fraction] 18 % Low 38-51 [facility] Comment on above: Performed By: #### 3 1976 #### [facility] [address] [place] [address], [facility] Hemoglobin (Bld) [Mass/Vol] 6.1 g/dL Low 12.0-17.0 [place] Comment on above: Performed By: #### 3 1976 #### [facility] [address] [place] [address], [facility] IONIZED CALCIUM 0.90 mmol/L Low 1.12-1.[address] [facility] Comment on above: Performed By: #### 3 1976 #### [facility] [address] [place] [id number], [facility] Oxygen (Bld) [Partial pressure] 45.0 mm[Hg] Normal [place] Comment on above: Performed By: #### 3 1976 #### [facility] [address] [place] [address], [facility] PCO2 32.1 mmHg Low 41.0-51.0 [place] Comment on above: Performed By: #### 3 1976 #### [facility] [address] [place] [address], [facility] pH (Bld) 7.49 [pH] High 7.31-7.41 [place] Comment on above: Performed By: #### 3 1976 #### [facility] [address] [place] [address], [place] Potassium [Moles/Vol] 3.7 mmol/L Normal 3.5-4.9 [facility] Comment on above: Performed By: #### 3 1976 #### [facility] [address] [place] [address], [place] Sodium [Moles/Vol] 138 mmol/L Normal 138-146 [facility] Comment on above: Performed By: #### 3 1976 #### [facility] [address] [place] [address], [facility] BASE EXCESS 7.0 mmol/L High -2.0-3.0 [facility] Comment on above: Performed By: #### 3 1976 #### [facility] [address] [place] [address], [place] Glucose [Mass/Vol] 94 mg/dL Normal 70-105 [facility] Comment on above: Performed By: #### 3 1976 #### [facility] [address] [place] [address], [place] Hematocrit (Bld) [Volume fraction] 17 % Low 38-51 [facility] Comment on above: Performed By: #### 3 1976 #### [facility] [address] [place] [address], [place] Hemoglobin (Bld) [Mass/Vol] 5.8 g/dL Critically low 12.0-17.0 [facility] Comment on above: Performed By: #### 3 1976 #### [facility] [address] [place] [address], [facility] IONIZED CALCIUM 0.85 mmol/L Low 1.12-1.[address] [facility] Comment on above: Performed By: #### 3 1976 #### [facility] [address] [place] [address], [facility] Oxygen (Bld) [Partial pressure] 553.0 mm[Hg] High 80.0-105.0 [place] Comment on above: Performed By: #### 3 1976 #### [facility] [address] [place] [address], [facility] PCO2 32.8 mmHg Low 35.0-45.0 [place] Comment on above: Performed By: #### 3 1976 #### [facility] [address] [place] [address], [facility] pH (Bld) 7.57 [pH] High 7.35-7.45 [place] Comment on above: Performed By: #### 3 1976 #### [facility] [address] [place] [address], [facility] Potassium [Moles/Vol] 3.7 mmol/L Normal 3.5-4.9 [place] Comment on above: Performed By: #### 3 1976 #### [facility] [address] [place] [address], [facility] Sodium [Moles/Vol] 137 mmol/L Low 138-146 [facility] Comment on above: Performed By: #### 3 1976 #### [facility] [address] [place] [address], [facility] BASE EXCESS 0.0 mmol/L Normal -2.0-3.0 [facility] Comment on above: Performed By: #### 3 1976 #### [facility] [address] [place] [address], [place] Glucose [Mass/Vol] 109 mg/dL High 70-105 [facility] Comment on above: Performed By: #### 3 1976 #### [facility] [address] [place] [address], [place] Hematocrit (Bld) [Volume fraction] 27 % Low 38-51 [facility] Comment on above: Performed By: #### 3 1976 #### [facility] [address] [place] [address], [place] Hemoglobin (Bld) [Mass/Vol] 9.2 g/dL Low 12.0-17.0 [facility] Comment on above: Performed By: #### 3 1976 #### [facility] [address] [place] [address], [place] IONIZED CALCIUM 1.17 mmol/L Normal 1.12-1.32 [facility] Comment on above: Performed By: #### 3 1976 #### [facility] [address] [place] [address], [place] Oxygen (Bld) [Partial pressure] 336.0 mm[Hg] High 80.0-105.0 [facility] Comment on above: Performed By: #### 3 1976 #### [facility] [address] [place] [address], [place] PCO2 41.6 mmHg Normal 35.0-45.0 [facility] Comment on above: Performed By: #### 3 1976 #### [facility] [address] [place] [address], [place] pH (Bld) 7.39 [pH] Normal 7.35-7.45 [facility] Comment on above: Performed By: #### 3 1976 #### [facility] [address] [place] [address], [place] Potassium [Moles/Vol] 3.6 mmol/L Normal 3.5-4.9 [facility] Comment on above: Performed By: #### 3 1977 #### [facility] [address] [place] [address], [facility] Sodium [Moles/Vol] 139 mmol/L Normal 138-146 [facility] Comment on above: Performed By: #### 3 1977 #### [facility] [address] [place] [id number], [facility] BASE EXCESS 2.0 mmol/L Normal -2.0-3.0 [facility] Comment on above: Performed By: #### 8 [id number] #### [facility] [address] [place] [address], [facility] Glucose [Mass/Vol] 93 mg/dL Normal 70-105 [facility] Comment on above: Performed By: #### 8 [id number] #### [facility] [address] [place] [address], [facility] Hematocrit (Bld) [Volume fraction] 27 % Low 38-51 [facility] Comment on above: Performed By: #### 8 [id number] #### [facility] [address] [place] [address], [facility] Hemoglobin (Bld) [Mass/Vol] 9.2 g/dL Low 12.0-17.0 [place] Comment on above: Performed By: #### 8 5499 #### [facility] [address] [place] [address], [facility] IONIZED CALCIUM 1.15 mmol/L Normal 1.12-1.[address] [facility] Comment on above: Performed By: #### 8 [id number] #### [facility] [address] [place] [address], [facility] Oxygen (Bld) [Partial pressure] 545.0 mm[Hg] High 80.0-105.0 [facility] Comment on above: Performed By: #### 8 [id number] #### [facility] [address] [place] [address], [place] PCO2 37.6 mmHg Normal 35.0-45.0 [facility] Comment on above: Performed By: #### 8 5499 #### [facility] [address] [place] [address], [place] pH (Bld) 7.45 [pH] Normal 7.35-7.45 [facility] Comment on above: Performed By: #### 8 [id number] #### [facility] [address] [place] [address], [place] Potassium [Moles/Vol] 3.3 mmol/L Low 3.5-4.9 [facility] Comment on above: Performed By: #### 8 [id number] #### [facility] [address] [place] [address], [place] Sodium [Moles/Vol] 140 mmol/L Normal 138-146 [facility] Comment on above: Performed By: #### 8 5499 #### [facility] [address] [place] [address], [place] PHOSPHORUS BLOODon Phosphate [Mass/Vol] 3.4 mg/dL Normal 2.5-5.0 [facility] Comment on above: Order Comment: Check Chest Tube Position, ON ARRIVAL TO CVU Performed By: #### 0 0071, [id number], 14555 ####[facility] [place] [address], [place] POC GLUCOSE LABon 04-02-2021 Glucose [Mass/Vol] 154 mg/dL High 70-100 [facility] Comment on above: Performed By: #### 8 [id number] #### [facility] [address] [place] [address], [place] Glucose [Mass/Vol] 101 mg/dL High 70-100 [facility] Comment on above: Performed By: #### 3 1595 #### [address] POC SARS COV2 ANTIGEN NEGATI VEon 04-02-2021 POC SARS COV2 ANTIGEN NEG Negative Normal NEGATIVE [facility] Comment on above: Result Comment: Nega [...] signs and symptoms consistent with COVID-19. The [facility] COVID-19 Ag Card is a lateral flow [...] Accreditation. Performed By: #### 3 1977 #### [address] PORTABLE CHEST 1 VIEWon 03-20 PORTABLE CHEST 1 VIEW [facility] Department of Radiology [address] [place] [id number] Patient Name: AMBAR BREWSTER : 1950 Sex: F Age: Race: White Pt. Location: [place] [address] Patient Status: I Ordered Date: 04/02/2021 1:30:00 [...] stomach. Thoracostomy tubes and mediastinal drainage tube. Bishop-Ayan catheter with the tip in the pulmonary outflow. Congested lung valerio. IMPRESSION: As above. Electronically signed: Kirk Campa. Transcribed by: [email or web address], User Resident: Electronically Signed by: KIRK CAMPA @ 04/02/2021 02:43 PM Normal [facility] Comment on above: Order Comment: Check Chest Tube Position, ON ARRIVAL TO CVU PROTHROMBIN TIMEon INR Coag (PPP) [Relative time] 1.42 {INR} High 0.91-1.16 [facility] Comment on above: Order Comment: No: [...] 1995;108:231S-246S. Performed By: #### 8 [id number] #### [facility] [address] [facility] [place] [address], [facility] PT Coag (PPP) [Time] 17.4 s High 12.3-14.8 [facility] Comment on above: Order Comment: No: D o not add to previous draw Result Comment: ALL RESULTS MUST BE INTERPRETED WITH RESPECT TO BLOOD DRAWING ARTIFACT OR DILUTION ERROR OF ANTICOAGULANT AT THE TIME OF SAMPLING. Performed By: #### 8 [id number] #### [facility] [address] [facility] [place] [address], [facility] INR Coag (PPP) [Relative time] 1.92 {INR} High 0.91-1.16 [facility] Comment on above: Order Comment: No: [...] 1995;108:[id number]. Performed By: #### 8 [id number] #### [facility] [address] [place] [address], [facility] PT Coag (PPP) [Time] 22.0 s High 12.3-14.8 [facility] Comment on above: Order Comment: No: D o not add to previous draw Result Comment: ALL RESULTS MUST BE INTERPRETED WITH RESPECT TO BLOOD DRAWING ARTIFACT OR DILUTION ERROR OF ANTICOAGULANT AT THE TIME OF SAMPLING. Performed By: #### 8 [id number] #### [facility] [address] [facility] INR Coag (PPP) [Relative time] 2.39 {INR} High 0.91-1.16 [facility] Comment on above: Result Comment: ACCC [...] 1995;108:[id number]. Performed By: #### 8 5499 #### [facility] [address] PT Coag (PPP) [Time] 26.2 s High 12.3-14.8 [facility] Comment on above: Result Comment: ALL RESULTS MUST BE INTERPRETED WITH RESPECT TO BLOOD DRAWING ARTIFACT OR DILUTION ERROR OF ANTICOAGULANT AT THE TIME OF SAMPLING. Performed By: #### 8 [id number] #### [facility] [address] [place] [address], [facility] RBC'S 2 UNITSon 04-02-2021 CROSSMATCH INTERP 1 COMP Normal [facility] Comment on above: Performed By: #### 3 0739 #### [facility] [address] [place] [address], [facility] CROSSMATCH INTERP 2 COMP Normal [facility] Comment on above: Performed By: #### 3 0739 #### [facility] [address] PRODUCT CODE 1 E0336 Normal [facility] Comment on above: Performed By: #### 3 0739 #### [facility] [address] [place] [address], [facility] PRODUCT CODE 2 E0336 Normal [facility] Comment on above: Performed By: #### 3 0739 #### [facility] [address] [place] [address], [facility] PRODUCT STATUS 1 RE Normal [facility] Comment on above: Result Comment: Resu lt changed by IF on 04/05/2021 07:21. The previous value was XM. Performed By: #### 3 0739 #### [facility] [address] [place] [id number], [facility] PRODUCT STATUS 2 RE Normal [facility] Comment on above: Result Comment: Resu lt changed by IF on 04/05/2021 07:21. The previous value was XM. Performed By: #### 3 0739 #### [facility] [address] [place] [address], [facility] UNIT ABO 1 A Normal [facility] Comment on above: Performed By: #### 3 0739 #### [facility] [address] [place] [address], [facility] UNIT ABO 2 A Normal [facility] Comment on above: Performed By: #### 3 0739 #### [facility] [address] [place] [address], [facility] UNIT ID 1 [id number] Normal [facility] Comment on above: Performed By: #### 3 0739 #### [facility] [address] [place] [address], [facility] UNIT ID 2 [id number] Normal [facility] Comment on above: Performed By: #### 3 0739 #### [facility] [address] [place] [address], [facility] UNIT RH 1 Negative Normal [facility] Comment on above: Performed By: #### 3 0739 #### [facility] [address] [place] [address], [facility] UNIT RH 2 Negative Normal [facility] Comment on above: Performed By: #### 3 0739 #### [facility] [address] [place] [address], [facility] CROSSMATCH INTERP 1 COMP Normal [facility] Comment on above: Performed By: #### 3 0965 #### [facility] [address] [place] [address], [place] CROSSMATCH INTERP 2 COMP Normal [facility] Comment on above: Performed By: #### 3 0965 #### [facility] [address] [place] [address], [facility] PRODUCT CODE 1 E0336 Normal [facility] Comment on above: Performed By: #### 3 0965 #### [facility] [address] [place] [address], [facility] PRODUCT CODE 2 E0336 Normal [facility] Comment on above: Performed By: #### 3 65 #### [facility] [address] [place] [address], [place] PRODUCT STATUS 1 PT Normal [facility] Comment on above: Result Comment: Resu lt changed by IF on 04/02/2021 13:04. The previous value was XM. Result changed by IF on 04/03/2021 00:30. The previous value was IS. Performed By: #### 3 0965 #### [facility] [address] [place] [address], [facility] PRODUCT STATUS 2 PT Normal [facility] Comment on above: Result Comment: Resu lt changed by IF on 04/02/2021 13:04. The previous value was XM. Result changed by IF on 04/03/2021 00:30. The previous value was IS. Performed By: #### 3 0965 #### [facility] [address] [place] [address], [facility] UNIT ABO 1 A Normal [place] Comment on above: Performed By: #### 3 0965 #### [facility] [address] [place] [address], [place] UNIT ABO 2 A Normal [place] Comment on above: Performed By: #### 3 0965 #### [facility] [address] [place] [address], [place] UNIT ID 1 [id number] Normal [facility] Comment on above: Performed By: #### 3 0965 #### [facility] [address] [place] [address], [place] UNIT ID 2 [id number] Normal [facility] Comment on above: Performed By: #### 3 0965 #### [facility] [address] [place] [address], [place] UNIT RH 1 Negative Normal [place] Comment on above: Performed By: #### 3 0965 #### [facility] [address] [place] [address], [place] UNIT RH 2 Negative Normal [facility] Comment on above: Performed By: #### 3 0965 #### [facility] [address] [place] [address], [place] RBC'S 2 UNITSon 04-01-2021 CROSSMATCH INTERP 1 COMP Normal [facility] Comment on above: Performed By: #### 3 0965 #### [facility] [address] [place] [address], [place] CROSSMATCH INTERP 2 COMP Normal [facility] Comment on above: Performed By: #### 3 0965 #### [facility] [address] [place] [address], [place] PRODUCT CODE 1 E0336 Normal [facility] Comment on above: Performed By: #### 3 0965 #### [facility] [address] [place] [address], [place] PRODUCT CODE 2 E0336 Normal [facility] Comment on above: Performed By: #### 3 0965 #### [facility] [address] [place] [address], [place] PRODUCT STATUS [address] [facility] Comment on above: Result Comment: Resu lt changed by IF on 04/02/2021 09:57. The previous value was XM. Result changed by IF on 04/03/2021 00:30. The previous value was IS. Performed By: #### 3 0965 #### [facility] [address] [place] [address], [place] PRODUCT STATUS 2 PT Normal The [facility] Comment on above: Result Comment: Resu lt changed by IF on 04/02/2021 09:57. The previous value was XM. Result changed by IF on 04/03/2021 00:30. The previous value was IS. Performed By: #### 3 0965 #### [facility] [address] [place] [address], [facility] UNIT ABO 1 A Normal [place] Comment on above: Performed By: #### 3 0965 #### [facility] [address] [place] [address], [facility] ABO 2 A Normal [place] Comment on above: Performed By: #### 3 0965 #### [facility] [address] [place] [address], [facility] ID 1 [id number] Normal The [facility] Comment on above: Performed By: #### 3 0965 #### [facility] [address] [place] [address], [facility] UN[facility] ID 2 [id number] Normal [facility] Comment on above: Performed By: #### 3 0965 #### [facility] [address] [place] [address], [facility] RH 1 Negative Normal The [facility] Comment on above: Performed By: #### 3 0965 #### [facility] [address] [place] [address], [place] UNIT RH 2 Negative Normal [place] Comment on above: Performed By: #### 3 0965 #### [facility] [address] [place] [address], [facility] *MRSA/MSSA DNA NASALon 03-25 *MRSA/MSSA DNA NASAL Clinical Report: (D ) Specimen: NASAL SWAB Collected: 03/25/2021 10:21 Status: Final Last Updated: 03/27/2021 08:02 MSSA DNA (Final) Negative MRSA DNA (Final) Methicillin Resistant Staphylococcus aureus DNA Detected Normal [facility] Comment on above: Performed By: #### 3 1595 #### [facility] [address] [facility] [place] [address], [facility] ANTI C3 DATon 03-25-2021 ANTI C3 ZEENAT Negative Normal The [facility] Comment on above: Performed By: #### 3 0965 #### [facility] [address] [facility]. [address] ANTI IGG DATon 03-25-2021 ANTI IGG ZEENAT Negative Normal The [facility] Comment on above: Performed By: #### 3 0965 #### [facility] [address] [facility]. [address] ANTIBODY IDENTIFICATIONon ANTIBODY ID NCSA Normal [facility] Comment on above: Performed By: #### 3 0739 #### [facility] [address] [facility]. [address] APTTon 03-25-2021 aPTT Coag (Bld) [Time] 30.2 s Normal 25.0-35.0 [place] Comment on above: Result Comment: ALL RESULTS [...] PURPOSE. Performed By: #### 8 5499 #### [facility] [address] [facility] [place] [address], [facility] CBC W/DIFFon 03-25-2021 ABS IMM GRANS 0.0 10*3/uL Normal 0.0-0.2 [facility] Comment on above: Performed By: #### 5 0103 #### [facility] [address] [facility] [place] [address], [facility] ABS NEUTROPHILS 4.7 10*3/uL Normal 1.6-7.6 The [facility] Comment on above: Performed By: #### 5 0103 #### [facility] [address] [place] [address], [facility] Basophils (Bld) [#/Vol] 0.1 10*3/uL Normal 0.0-0.2 [facility] Comment on above: Performed By: #### 5 0103 #### [facility] [address] [facility] [place] [address], [facility] Basophils/100 WBC (Bld) 0.7 % Normal 0.0-1.0 [facility] Comment on above: Performed By: #### 5 0103 #### [facility] [address] [facility] [place] [address], [facility] Eosinophils (Bld) [#/Vol] 0.1 10*3/uL Normal 0.0-0.5 [facility] Comment on above: Performed By: #### 5 0103 #### [facility] [address] [place] [address], [facility] Eosinophils/100 WBC (Bld) 1.6 % Normal 0.0-6.0 [facility] Comment on above: Performed By: #### 5 0103 #### [facility] [address] [facility] [place] [address], [facility] Erythrocyte distribution width (RBC) [Ratio] 12.8 % Normal 11.5-15.0 [facility] Comment on above: Performed By: #### 5 0103 #### [facility] [address] [facility] [place] [address], [facility] Hematocrit (Bld) [Volume fraction] 35.0 % Low 36.0-45.0 [facility] Comment on above: Performed By: #### 5 3 #### [facility] [address] [facility] [place] [address], [facility] Hemoglobin (Bld) [Mass/Vol] 11.6 g/dL Low 12.0-15.0 [facility] Comment on above: Performed By: #### 5 0103 #### [facility] [address] [place] [address], [facility] IMMATURE GRANS 0.3 % Normal 0.0-1.0 [facility] Comment on above: Performed By: #### 5 0103 #### [facility] [address] [place] [address], [facility] Lymphocytes (Bld) [#/Vol] 1.3 10*3/uL Normal 1.2-4.0 [facility] Comment on above: Performed By: #### 5 0103 #### [facility] [address] [place] [address], [facility] Lymphocytes/100 WBC (Bld) 19.2 % Low 20.0-45.0 [facility] Comment on above: Performed By: #### 5 0103 #### [facility] [address] [place] [address], [facility] MCH (RBC) [Entitic mass] 31.4 pg Normal 27.0-33.0 [facility] Comment on above: Performed By: #### 5 0103 #### [facility] [address] [facility] [place] [address], [facility] MCHC (RBC) [Mass/Vol] 33.1 g/dL Normal 32.0-35.0 [facility] Comment on above: Performed By: #### 5 0103 #### [facility] [address] [place] [address], [facility] MCV (RBC) [Entitic vol] 94.9 fL Normal 82.0-98.0 [facility] Comment on above: Performed By: #### 5 3 #### [facility] [address] [facility] [place] [address], [facility] Monocytes (Bld) [#/Vol] 0.6 10*3/uL Normal 0.1-1.0 [facility] Comment on above: Performed By: #### 5 0103 #### [facility] [address] [place] [address], [facility] MONOS 8.4 % Normal 5.0-12.0 [facility] Comment on above: Performed By: #### 5 0103 #### [facility] [address] [place] [address], [facility] Neutrophils/100 WBC (Bld) 69.8 % Normal 40.0-72.0 [facility] Comment on above: Performed By: #### 5 0103 #### [facility] [address] [place] [id number], [facility] Nucleated RBC/100 WBC (Bld) [Ratio] 0 % Normal 0-0 [facility] Comment on above: Performed By: #### 5 0103 #### [facility] [address] [place] [address], [facility] PLAT CNT 325 10*3/uL Normal 150-[address] [facility] Comment on above: Performed By: #### 5 3 #### [facility] [address] [place] [address], [facility] RBC (Bld) [#/Vol] 3.69 10*6/uL Low 3.80-5.00 The [facility] Comment on above: Performed By: #### 5 0103 #### [facility] [address] [place] [id number], [facility] WBC (Bld) [#/Vol] 6.67 10*3/uL Normal 4.00-10.60 The [facility] Comment on above: Performed By: #### 5 3 #### [facility] [address] [place] [id number], [facility] CHEST AND LATERALon 03-25-20 21 CHEST AND LATERAL [facility] Department of Radiology [address] [place] [address] Patient Name: AMBAR BREWSTER : 1950 Sex: F Age: Race: White Pt. Location: Patient Status: O Ordered Date: 03/25/2021 10:40:00 AM Completed Date: 03/25/2021 10:40 AM Requesting Provider: FELISA HYATT Attending Provider: FELISA HYATT Report Copy To: DONTAE URIBE Signs & Symptoms: I25.10 Athscl heart disease of [place] coronary artery w/o ang pctrs I10 History: Comments: evaluate Exam: CHEST AND LATERAL CHEST AND LATERAL 03/25/2021 10:40 AM CLINICAL INDICATIONS: I25.10 Athscl heart disease of [place] tribe coronary artery w/o ang pctrs I10 TECHNOLOGIST [...] report. Electronically signed: Annie Germain. Transcribed by: [id number], User Resident: MU MOSES Electronically Signed by: ANNIE GERMAIN @ 03/25/2021 11:41 AM I personally read this/these film(s) with this resident Normal [facility] Comment on above: Order Comment: evalu ate COMP METABOLIC PANELon 03-25 Albumin [Mass/Vol] 4.4 g/dL Normal 3.5-5.7 The [facility] Comment on above: Performed By: #### 0 0121 ####[facility] [facility].[address] ALKALINE PHOSPH 52 IU/L Normal 34-104 The [facility] Comment on above: Performed By: #### 0 0121 ####[facility] [facility].[address] ALT [Catalytic activity/Vol] 12 U/L Normal 7-52 [facility] Comment on above: Performed By: #### 0 0121 ####[facility] [facility].[address] AST [Catalytic activity/Vol] 13 U/L Normal 13-39 [facility] Comment on above: Performed By: #### 0 0121 ####[facility] [facility] [place] [address], [facility] Bilirubin [Mass/Vol] 0.3 mg/dL Normal 0.3-1.0 [facility] Comment on above: Performed By: #### 0 0121 ####[facility] [facility] [place] [address], [facility] Calcium [Mass/Vol] 9.7 mg/dL Normal 8.6-10.3 The [facility] Comment on above: Performed By: #### 0 0121 ####[facility] [place] [address], [facility] Chloride [Moles/Vol] 104 mmol/L Normal 98-107 [facility] Comment on above: Performed By: #### 0 0121 ####[facility] [place] [address], [place] CO2 [Moles/Vol] 30 mmol/L Normal 21-31 [facility] Comment on above: Performed By: #### 0 0121 ####[facility] [facility] [place] [address], [place] Creatinine [Mass/Vol] 0.76 mg/dL Normal 0.60-1.20 [facility] Comment on above: Performed By: #### 0 0121 ####[facility] [facility] [place] [address], [place] GFR/1.73 sq M.predicted among blacks MDRD (S/P/Bld) [Vol rate/Area] mL/min/{1.73_m2} Normal >60 [facility] Comment on above: Performed By: #### 0 0121 ####[facility] [facility] [place] [address], [place] GFR/1.73 sq M.predicted among non-blacks MDRD (S/P/Bld) [Vol rate/Area] mL/min/{1.73_m2} Normal >60 [facility] Comment on above: Performed By: #### 0 0121 ####[facility] [facility] [place] [address], [place] Glucose [Mass/Vol] 112 mg/dL High 70-100 [facility] Comment on above: Performed By: #### 0 0121 ####[facility] [place] [address], [place] Potassium [Moles/Vol] 5.1 mmol/L Normal 3.5-5.1 [facility] Comment on above: Performed By: #### 0 0121 ####[facility] Protein [Mass/Vol] 7.5 g/dL Normal 6.0-8.3 The [facility] Comment on above: Performed By: #### 0 0121 ####[facility] [facility].[address] Sodium [Moles/Vol] 140 mmol/L Normal 136-145 The [facility] Comment on above: Performed By: #### 0 0121 ####[address] Urea nitrogen [Mass/Vol] 10 mg/dL Normal 7-25 [place] Comment on above: Performed By: #### 0 0121 ####[place] [address] [facility].[address] HEMOGLOBIN A1Con 03-25-2021 Glucose [Moles/Vol] 117 mmol/L Normal [facility] Comment on above: Performed By: #### 3 1791 ####[place] [address] [facility].[address] HbA1c (Bld) [Mass fraction] 5.7 % Normal 4.0-6.0 [facility] Comment on above: Performed By: #### 3 1791 ####[facility] [place] [address].[address] PROTHROMBIN TIMEon INR Coag (PPP) [Relative time] 1.05 {INR} Normal 0.91-1.16 [facility] Comment on above: Result Comment: ACCC [...] 1995;108:231S-246S. Performed By: #### 8 5499 #### [facility] [address] PT Coag (PPP) [Time] 13.7 s Normal 12.3-14.8 [place] Comment on above: Result Comment: ALL RESULTS MUST BE INTERPRETED WITH RESPECT TO BLOOD DRAWING ARTIFACT OR DILUTION ERROR OF ANTICOAGULANT AT THE TIME OF SAMPLING. Performed By: #### 8 5499 #### [facility] [address] [facility]. [address] TYPE AND CROSSMATCHon 2020 ABO INTERPRETATION A Normal [facility] Comment on above: Performed By: #### 3 0965 #### [facility] [address] [facility] [place] [address], [facility] RH INTERPRETATION Negative Normal [facility] Comment on above: Performed By: #### 3 0965 #### [facility] [address] [facility] [place] [address], [facility] URINALYSIS REFLEXon 03-25-20 21 Appearance (U) SL CLOUDY Abnormal CLEAR [facility] Comment on above: Performed By: #### 3 0965 #### [facility] [address] [place] [address], [facility] Bilirubin Ql (U) Negative Normal NEGATIVE [facility] Comment on above: Performed By: #### 3 0965 #### [facility] [address] [place] [address], [place] Color (U) YELLOW Normal YELLOW [facility] Comment on above: Performed By: #### 3 0965 #### [facility] [address] [place] [address], [place] Glucose Ql (U) Negative Normal NEGATIVE [facility] Comment on above: Performed By: #### 3 0965 #### [facility] [address] [place] [address], [place] Hemoglobin Ql (U) Negative Normal NEGATIVE [facility] Comment on above: Performed By: #### 3 0965 #### [facility] [address] [place] [address], [place] KETONE Negative Normal NEGATIVE [facility] Comment on above: Performed By: #### 3 0965 #### [facility] [address] [place] [address], [place] LEUK KEEGAN Negative Normal NEGATIVE [facility] Comment on above: Performed By: #### 3 0965 #### [facility] [address] [place] [address], [place] MICRO NOT DONE Normal The [facility] Comment on above: Result Comment: Micr oscopics not performed on urines with negative chemical reactions unless requested in original order Performed By: #### 3 0965 #### [facility] [address] [place] [address], [place] Nitrite Ql (U) Negative Normal NEGATIVE [facility] Comment on above: Performed By: #### 3 0965 #### [facility] [address] [place] [address], [place] pH (U) 7.0 [pH] Normal 5.0-8.0 [facility] Comment on above: Performed By: #### 3 0965 #### [facility] [address] [place] [address], [facility] Protein Ql (U) Negative Normal NEGATIVE [facility] Comment on above: Performed By: #### 3 0965 #### [facility] [address] [place] [address], [facility] SPEC GRAV 1.014 Low 1.015-1.[address] [facility] Comment on above: Performed By: #### 3 0965 #### [facility] [address] Cardiovascular Lab Reporton 03-18-2021 Cardiovascular Lab Report [facility] Patient Name: N[facility] E MR #: [id number] Department of Physician: Taco Regalado MDoroteo Division of Service Date: 03/17/2021 Cardiology Birthdate: 1950 Adult Cardiovascular Room #: [facility] [address] [facility]. [place], [place] [address] Cardiovascular Laboratory Report FINAL IMPRESSIONS: 1. 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 2. Normal global left ventricular systolic function. 3. Normal right-sided heart pressures and wedge pressure. 4. Normal cardiac output/cardiac index. Pressured and artery aneurysms. 5. Trslrvjc-gy-bampts systemic hypertension. RECOMMENDATIONS: 1. Consult Cardiothoracic Surgery [...] femoral vein and artery was obtained. A 6-Ivorian 11 cm sheath was placed in each. [...] was elected to conclude the procedure. A 6-Ivorian MynxGrip closure device was deployed per protocol [...] moderate-sized branching second diagonal shows a 70% eoiacebl-yl-fol vessel stenosis. Left circumflex coronary artery. This [...] Aj M.D. Date Trans: 03/18/2021 02:36 A/refugio [id number] cc: Dontae Uribe D.O. [address] [place] [id number] Agustin Valencia D.O. [address] [facility] [address] Normal [facility] Consent for COVID Vaccineon 12-29-2020 SARS-CoV-2 (COVID-19) RNA EDA+probe Ql (Unsp spec) [id number] .00CD:127 Normal [facility] Consent for COVID Vaccineon 12-06-2020 SARS-CoV-2 (COVID-19) RNA EDA+probe Ql (Unsp spec) [id number]# 1.00CD:127 Normal [facility] Consent for Treatmenton 11-18 Consent for Treatment [id number]# 1.00CD:127 Normal [facility] Coding Summary.on 12-04-2020 Coding Summary. CODING DATE: 12/04/2020 FINAL [facility] STATUS: PAYOR: Medicare APC DESCRIPTION 1492 New [...] Sarah Bernal Date Saved: 12/04/2020 03:11 pm [facility] Vital Signs Date Time Vital Sign Value Performing Clinician Facility 01-25-2024 10:30-0400 Body height 168.91 cm [facility] 01-25-2024 10:30-0400 Body mass index (BMI) [Ratio] 18.5 kg/m2 [facility] 01-25-2024 10:30-0400 Body weight 52.84 kg [facility] 01-25-2024 10:30-0400 Diastolic blood pressure 82 mm[Hg] [facility] 01-25-2024 10:30-0400 Heart rate 68 /min [facility] 01-25-2024 10:30-0400 Respiratory rate 12 /min [facility] 01-25-2024 10:30-0400 Systolic blood pressure 130 mm[Hg] [facility] 12-24-2023 12:32-0400 Body height 168.91 cm [facility] 12-24-2023 12:32-0400 Body mass index (BMI) [Ratio] 18.4 kg/m2 [facility] 12-24-2023 12:32-0400 Body weight 52.61 kg [facility] 12-24-2023 12:32-0400 Diastolic blood pressure 80 mm[Hg] [facility] 12-24-2023 12:32-0400 Heart rate 76 /min [facility] 12-24-2023 12:32-0400 Respiratory rate 12 /min [facility] 12-24-2023 12:32-0400 Systolic blood pressure 182 mm[Hg] [facility] 12-15-2023 13:34-0400 Body height 168.91 cm [facility] 12-15-2023 13:34-0400 Body mass index (BMI) [Ratio] 18.4 kg/m2 [facility] 03-27-2024 13:34-0400 Body weight 52.61 kg [facility] 12-15-2023 13:34-0400 Diastolic blood pressure 80 mm[Hg] [facility] 12-15-2023 13:34-0400 Heart rate 77 /min [facility] 12-15-2023 13:34-0400 Respiratory rate 12 /min [facility] 12-15-2023 13:34-0400 Systolic blood pressure 135 mm[Hg] [facility] 08-16-2023 08:30-0500 Body height 168.91 cm Dontae Ball Other [facility] [employer] Other 08-16-2023 08:30-0500 Body mass index (BMI) [Ratio] 18.31 kg/m2 Dontae Ball Other [facility] [employer] Other 08-16-2023 08:30-0500 Body weight 52.25 kg Dontae Ball Other [facility] [employer] Other 08-16-2023 08:30-0500 Diastolic blood pressure 76 mm[Hg] Dontae Ball Other [employer] Other 08-16-2023 08:30-0500 Respiratory rate 12 /min Dontae Ball Other [employer] Other 08-16-2023 08:30-0500 Systolic blood pressure 155 mm[Hg] Dontae Ball Other [employer] Other 05-12-2023 13:45-0400 Body height 168.91 cm Dontae Ball Other [employer] Other 05-12-2023 13:45-0400 Body mass index (BMI) [Ratio] 18.44 kg/m2 Dontae Ball Other [employer] Other 05-12-2023 13:45-0400 Body weight 52.62 kg Dontae Ball Other [employer] Other 05-12-2023 13:45-0400 Diastolic blood pressure 88 mm[Hg] Dontae Ball Other [employer] Other 05-12-2023 13:45-0400 Respiratory rate 12 /min Dontae Ball Other [employer] Other 05-12-2023 13:45-0400 Systolic blood pressure 138 mm[Hg] Dontae Ball Other [employer] Other 04-22-2023 13:30-0400 Body height 168.91 cm Travis Neelam Other [employer] Other 04-22-2023 13:30-0400 Body mass index (BMI) [Ratio] 18.28 kg/m2 Travis Neelam Other [employer] Other 04-22-2023 13:30-0400 Body weight 52.16 kg Travis Neelam Other [employer] Other 04-22-2023 13:30-0400 Diastolic blood pressure 78 mm[Hg] Travis Neelam Other [employer] Other 04-22-2023 13:30-0400 Systolic blood pressure 137 mm[Hg] Travis Neelam Other [employer] Other 03-18-2023 09:15-0400 Body height 168.91 cm Dontae Ball Other [employer] Other 03-18-2023 09:15-0400 Body mass index (BMI) [Ratio] 18.25 kg/m2 Dontae Ball Other [employer] Other 03-18-2023 09:15-0400 Body weight 52.07 kg Dontae Uribe Other [employer] Other 03-18-2023 09:15-0400 Diastolic blood pressure 77 mm[Hg] Dontae Uribe Other [employer] Other 03-18-2023 09:15-0400 Respiratory rate 12 /min Dontae Uribe Other [employer] Other 03-18-2023 09:15-0400 Systolic blood pressure 145 mm[Hg] Dontae Uribe Other [employer] Other 04-21-2022 15:15-0400 Body height 168.91 cm Travis Richter Other [employer] Other 04-21-2022 15:15-0400 Body mass index (BMI) [Ratio] 18.28 kg/m2 Travis Richter Other [employer] Other 04-21-2022 15:15-0400 Body weight 52.16 kg Travis Richter Other [employer] Other Encounters Encounter Date Encounter Type Care Provider Facility Start: 01-25-2024 End: 01-25-2024 ambulatory [facility] Work Phone: Start: 01-25-2024 End: 01-25-2024 Patient encounter procedure [facility] Work Phone: Start: 01-05-2024 End: 01-05-2024 ambulatory [facility] Start: 12-24-2023 End: 12-24-2023 ambulatory [facility] Work Phone: Start: 12-24-2023 End: 12-24-2023 Patient encounter procedure [facility] Work Phone: Start: 12-22-2023 End: 12-22-2023 ambulatory [facility] Work Phone: Start: 12-22-2023 End: 12-22-2023 Patient encounter procedure [facility] Work Phone: Start: 12-15-2023 End: 12-15-2023 ambulatory [facility] Work Phone: Start: 12-15-2023 End: 12-15-2023 [facility] [facility] Work Phone: Start: 12-15-2023 End: 12-15-2023 ambulatory [facility] Start: 12-15-2023 Non-patient / Non-visit [facility] Work Phone: Start: 12-08-2023 End: 12-08-2023 ambulatory [facility] Work Phone: Start: 12-08-2023 End: 12-08-2023 Patient encounter procedure [facility] Work Phone: Start: 12-07-2023 Non-patient / Non-visit [facility] Work Phone: Start: 12-01-2023 End: 12-01-2023 Patient encounter procedure [facility] Work Phone: Start: 11-30-2023 End: 11-30-2023 Patient encounter procedure [facility] Work Phone: Start: 11-26-2023 Non-patient / Non-visit [facility] Work Phone: Start: 11-23-2023 Non-patient / Non-visit [facility] Work Phone: Start: 08-19-2023 End: 08-19-2023 ambulatory Dontae Uribe Other [employer] Other Start: 08-19-2023 Telephone encounter Dontae Uribe [facility] Start: 08-16-2023 End: 08-16-2023 ambulatory Dontae Uribe Other [employer] Other Start: 08-16-2023 Patient encounter procedure Dontae Uribe [facility] Start: 05-27-2023 End: 05-27-2023 ambulatory Dontae Uribe Other [employer] Other Start: 05-27-2023 Telephone encounter Dontae Uribe [facility] Start: 05-12-2023 End: 05-12-2023 ambulatory Dontae Uribe Other [employer] Other Start: 05-12-2023 Office outpatient visit 15 minutes Dontae Uribe [facility] Start: 04-22-2023 End: 04-22-2023 ambulatory Travis Richter Other [employer] Other Start: 04-22-2023 Office outpatient visit 15 minutes Travis Richter [facility] Start: 03-18-2023 End: 03-18-2023 ambulatory Dontae Uribe Other [employer] Other Start: 03-18-2023 Office outpatient visit 15 minutes Dontae Uribe [facility] Start: 03-12-2023 End: 03-12-2023 ambulatory Dontae Uribe Other [employer] Other Start: 03-12-2023 Office outpatient visit 15 minutes Dontae Ball [facility] Start: 03-09-2023 End: 03-09-2023 ambulatory Dontae Uribe Other [employer] Other Start: 03-09-2023 Telephone encounter Dontae Uribe [facility] Start: 01-14-2023 End: 01-14-2023 ambulatory Dontae Uribe Other [employer] Other Start: 01-14-2023 Telephone encounter Dontae Rony [facility] Start: 01-11-2023 End: 01-11-2023 ambulatory Dontae Uribe Other [employer] Other Start: 01-11-2023 Office outpatient visit 15 minutes Dontae Uribe [facility] Start: 11-24-2022 End: 11-25-[address] DONTAE URIBE Facility:[facility] Start: 10-16-2022 End: 10-16-2022 ambulatory Dontae Uribe Other [employer] Other Start: 10-16-2022 Office outpatient visit 15 minutes Donate Uribe [facility] Start: 10-16-2022 Telephone encounter Dontae Rony LAKISHA [facility] Start: 10-06-2022 End: 10-07-2022 ambulatory TOMÁS DAS Facility:[facility] Start: 09-15-2022 Adult health examination Dontae Uribe Other [employer] Other Start: 07-03-2022 ambulatory TOMÁS DAS Facility:[facility] Start: 04-21-2022 End: 04-21-2022 ambulatory Travis Richter Other [employer] Other Start: 04-21-2022 Office outpatient visit 15 minutes Travis Richter [facility] Start: 04-14-2022 End: 04-15-[address] JANAY AJ Facility:[facility] Start: 03-05-2022 End: 03-06-[address] JANAY AJ Facility:[facility] Start: 11-27-2021 End: 11-28-[address] DONTAE URIBE Facility:[facility] Start: 04-02-2021 End: 04-06-2021 Evaluation and management of inpatient FELISA MASJUAN DIEGO Facility:[facility] Start: 03-25-2021 End: 03-26-2021 ambulatory FELISA MASROOR Facility:[facility] Start: 03-17-2021 End: 03-18-2021 ambulatory JAVEDAB Anjali AJ Facility:[facility] Procedures Date Procedure Procedure Detail Performing [...] FELISA MASROOR Start: 03-25-2021 Antibody screen FELISA ORDAZ Comment on above: Performed By: #### 3 [id number] #### [facility] [address] [facility]. [address] Coronary artery bypa ss graft Dontae Urbie Other Depression screening Kushal Uribe Other Screening for malign ant neoplasm of breast Dontae Uribe Other Plan of Treatment Date Care Activity Detail Author MR Brain WO contrast [facility] US.doppler Carotid arteries - bilateral [facility] XR Lumbar spine Views [facility] XR Pelvis and Hip - bilateral Views [facility] Immunizations Immunization Date Immunization Notes Care Provider Fa cility 07-27-2023 influenza virus vaccine, unspecified formulation [facility] 07-27-2023 influenza, high dose seasonal, preservative-free Dontae Uribe Other [employer] Other 09-17-2021 COVID-19 Vaccine Pfi zer - Documentation Purposes Only Dontae Uribe Other [facility] 08-29-2021 COVID-19 mRNA-1273 (Moderna) [facility] 12-20-2020 COVID-19 mRNA, Comirnaty (Pfizer) [facility] 11-29-2020 COVID-19 mRNA, Comirnaty (Pfizer) [facility] 01-14-2018 diphtheria, tetanus toxoids and acellular pertussis vaccine, unspecified formulation Dontae Ball Other [facility] Payers Date Payer Category Payer Medicare [id number] 1958 Self-pay [id number] 1958 Unknown [id number] 1950 Unknown [id number] 2.16.8 [id number] 1950 Unknown [id number] 2.16.8 [id number] 1950 Unknown [id number] 2.16.8 [id number] 1950 Unknown [id number] 2.16.84 [id number] 1950 Unknown [id number] 2.16.84 [id number] 1950 Unknown [id number] 2.16.84 [id number] 1950 Unknown [id number] 2.16.84 [id number] Self-pay Self Pay [id number] Unknown [id number] 2.16.84 [id number] Unknown [id number] 2.16.84 [id number] Unknown O [id number] Social History Date Type Detail Facility Unknown if ever smoked [employer] Other Sex Assigned At Sex Assigned At Bir th [employer] Other Start: 03-10-2022 Tobacco smoking status NHIS Ex-smoker (finding) [facility] Start: 1950 Sex Assigned At Female F [facility] Clinical Notes 09-20-2012 to 01-05-2024 Note Date & Type Note Facility 01-05-2024 Note [facility] Note Chief Complaint: Patient here to discuss recent stress test and echo. She is still wearing 30 day event monitor. Says she had chest pressure during the stress test so PCP started her on amlodipine 2.5mg for possible small vessel disease . She stopped taking it because it made her feel like she was going to kiss the floor . HPI: Ambar Brewster is a 73 y.o. female with [...] Father Alzheimer's disease Father Allergies Cephalosporins, Penicillins, Rqygmij-kja-bxd reductase inhibitors, and Ciprofloxacin Medications Current Outpatient [...] vein harvesting of (more content not included)... [facility] 12-15-2023 Note [facility] Cardiology Clinic Note Chief Complaint: Patient here for 1 year follow up CAD and hypertension. Had routine labs last week. Denies chest pain and LE edema. She's been having intermittent episodes of SOB and racing HR - into the 140's. Still does phase 3 cardiac rehab 3 times a week. HPI: Ambar Brewster is a 73 y.o. female with [...] Father Alzheimer's disease Father Allergies Cephalosporins, Penicillins, Lwobuaz-ejj-yrz reductase inhibitors, and Ciprofloxacin Medications Current Outpatient [...] ventricle is normal (more content not included)... 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 Jul, Pure hypercholesterolemia (ICD-10 - E78.00) Instructed [...] High risk medication use (ICD-10 - Z79.899) [employer] Other 09-07-2023 Evaluation note* Encounter Date Diagnosis Assessment Notes Treatment Notes Treatment Clinical Notes May, Acute cough (ICD-10 - R05.1) [employer] Other 08-23-2023 Evaluation note* Encounter Date Diagnosis [...] 135/85 May be increased due to pain [employer] Other 08-03-2023 Evaluation note* Encounter Date Diagnosis [...] is taking OTC probiotics RTO 1 year [employer] Other 06-29-2023 Evaluation note* Encounter Date Diagnosis [...] quality. Continue LABA/ICS and SHERLYN as needed [employer] Other 06-23-2023 Evaluation note* Encounter Date Diagnosis [...] SHERLYN to q 4 hours as needed [employer] Other 06-20-2023 Evaluation note* Encounter Date Diagnosis Assessment Notes Treatment Notes Treatment Clinical Notes Feb, Mild intermittent asthma with acute exacerbation (ICD-10 - J45.21) [employer] Other 04-27-2023 Evaluation note* Encounter Date Diagnosis Assessment Notes Treatment Notes Treatment Clinical Notes Dec, Acute non-recurrent maxillary sinusitis (ICD-10 - J01.00) [employer] Other 04-24-2023 Evaluation note* Encounter Date Diagnosis [...] or severe dyspnea. Restart Prednisone as needed [employer] Other 01-27-2023 Evaluation note* Encounter Date Diagnosis [...] to continue exercise and AHA diet plan. [employer] Other 01-27-2023 Evaluation note* Encounter Date Diagnosis Assessment Notes Treatment Notes Treatment Clinical Notes Sep, Acute non-recurrent maxillary sinusitis (ICD-10 - J01.00) [employer] Other 08-02-2022 Evaluation note* Encounter Date Diagnosis Assessment Notes Treatment Notes Treatment Clinical Notes Apr, Dysphagia (ICD-10 - R13.10) Apr, Schatzki's ring (ICD-10 - Q39.4) Apr, Constipation (ICD-10 - K59.00) CONTINUE MIRALAX PRN CONTINUE COLACE WITHOUT CHANGE RTO ONE YEAR Apr, Abdominal pain (ICD-10 - R10.9) CONTINUE BENTYL WITHOUT CHANGE [employer] Other 08-18-2021 NoteMR#: [id number] I [facility] Pt. Name: Ambar Brewster Admitted: 04/02/2021 [...] Shoemaker CNP Date Trans: 05/07/2021 03:44 P/refugio [id number] cc: Dontae Uribe D.O. [address] [place] [id number] History general Narrative - Reported* Type Description [...] Total Hysterectomy 1978 Hospitalization History Appendectomy 1968 [facility] Other Evaluation noteNo InformationNort [employer] Other Evaluation note* Diagnosis Onset Date Resolution Status Mild persistent asthma with acute exacerbation acute Acute sinusitis noneactive [facility] Work Phone: Evaluation note* Diagnosis Onset Date Resolution Status Mild persistent asthma with acute exacerbation acute Acute sinusitis noneactive ASHD (arteriosclerotic heart disease) acute Asthma acute Gastroesophageal reflux dise ase with esophagitis without hemorrhage acute Hyperlipidemia type II acute Paroxysmal atrial fibrillation acute [facility] Work Phone: Evaluation note* Diagnosis Onset Date Resolution Status Mild persistent asthma with acute exacerbation acute Acute sinusitis noneactive ASHD (arteriosclerotic heart disease) acute Asthma acute Gastroesophageal reflux dise ase with esophagitis without hemorrhage acute Hyperlipidemia type II acute Paroxysmal atrial fibrillation acute Pernicious anemia acute [facility] Work Phone: Evaluation note* Diagnosis Onset Date Resolution Status Mild persistent asthma with acute exacerbation acute Acute sinusitis noneactive ASHD (arteriosclerotic heart disease) acute Asthma acute Gastroesophageal reflux dise ase with esophagitis without hemorrhage acute Hyperlipidemia type II acute Paroxysmal atrial fibrillation acute Pernicious anemia acute ASHD (arteriosclerotic heart disease) acute Hypertension acute Abnormal stress test noneact sang Chest pain noneactive ASHD (arteriosclerotic heart disease) acute Dizziness acute Headache acute Hypertension acute Abnormal stress test noneact sang [facility] Work Phone: History general Narrative - Reported* [...] Medical History Mild intermittent asthma with ac ute mountain exacerbation Medical History Eczema, dyshidrotic Medical History [...] Total Hysterectomy 1978 Hospitalization History Appendectomy 1968 [employer] Other History general Narrative - Reported* Type [...] Medical History Mild intermittent asthma with ac ute mountain exacerbation Medical History Eczema, dyshidrotic Medical History [...] Total Hysterectomy 1978 Hospitalization History Appendectomy 1968 [employer] Other Summary Purpose Family History Relationship Condition Age at Onset Recorded Date/T jeanne Not Specified Myocardial infarction Unknown father Myocardial infarction Unknown father Unknown Not Specified Unknown Advance Directives Advance Directive Response Recorded Date/ Time Advance Directives No June 24, 2017 2:52pm Chief Complaint and Reason for Visit Chief Complaint Amb Documentation sinuses- [phone] B-12 Shot B-12 Shot Reason for Visit Mild persistent asth ma with acute exacerbation Acute sinusitis Chief Complaint Amb Documentation sinuses- [phone] B-12 Shot B-12 Shot 4 month follow up Reason for Visit Mild persistent asth ma with acute exacerbation Acute sinusitis ASHD (arteriosclerotic heart disease) Asthma Gastroesophageal reflux disease with esophagitis without hemorrhage Hyperlipidemia type II Paroxysmal atrial fibrillation Chief Complaint Amb Documentation sinuses- [phone] B-12 Shot B-12 Shot 4 month follow up B-12 SHOT Reason for Visit Mild persistent asth ma with acute exacerbation Acute sinusitis ASHD (arteriosclerotic heart disease) Asthma Gastroesophageal reflux disease with esophagitis without hemorrhage Hyperlipidemia type II Paroxysmal atrial fibrillation Pernicious anemia Chief Complaint Amb Documentation sinuses- [phone] B-12 Shot B-12 Shot 4 month follow up B-12 SHOT test results Reason for Visit Mild persistent asth ma with acute exacerbation Acute sinusitis ASHD (arteriosclerotic heart disease) Asthma Gastroesophageal reflux disease with esophagitis without hemorrhage Hyperlipidemia type II Paroxysmal atrial fibrillation Pernicious anemia Chief Complaint Amb Documentation sinuses- [phone] B-12 Shot B-12 Shot 4 month follow up B-12 SHOT test results continued dizziness Reason for Visit Mild persistent asth ma with acute exacerbation Acute sinusitis ASHD (arteriosclerotic heart disease) Asthma Gastroesophageal reflux disease with esophagitis without hemorrhage Hyperlipidemia type II Paroxysmal atrial fibrillation Pernicious anemia ASHD (arteriosclerotic heart disease) Hypertension Abnormal stress test Chest pain ASHD (arteriosclerotic heart disease) Dizziness Headache Hypertension Abnormal stress test Additional Source Comments INFORMATION SOURCE (unrecogn ized section and content) DATE CREATED AUTHOR 03/22/2021 [facility] DATE CREATED AUTHOR AUTHOR'S ORGANIZ ATION 05/09/2021 [facility] DATE CREATED AUTHOR AUTHOR'S ORGANIZ ATION 03/12/2022 [facility] DATE CREATED AUTHOR AUTHOR'S ORGANIZ ATION 11/26/2022 [facility] DATE CREATED AUTHOR AUTHOR'S ORGANIZ ATION 01/06/2024 [facility] REASON FOR VISIT (unrecogniz ed section and content) PATIENT HERE FOR FOLLOW UP T O EGD ON 03/10/2022 FOR DYSPHAGIA., SHE STOPPED LINZESS DUE TO COST, SHE IS HAPPY ON MIRALAX AND COLACE AND HER BOWELS ARE MOVING NORMALLYsinus congestionNo InformationSinuses- [phone], drainage, thick yellow mucus, left ear painmigraine, not feeling well sincemigraine, not feeling well sincePatient here for 1 yr follow upSciatic Nerve-LegNot Feeling [facility] results Care Teams (unrecognized sec tion and content) Team Status: Active Member Role Status Dates Dontae Uribe , DO Primary Care Provider Active Team Status: Active Member Role Status Dates Dontae Uribe , DO Primary Care Provider Active Start: November 23, 2023 POLLY Reece Attending Provider Active St art: November 23, 2023 Team Status: Active Member Role Status Dates Dontae Uribe , DO Primary Care Provide r, Attending Provider Active Start: November 26, 2023 Team Status: Inactive Member Role Status Dates Dontae Uribe , DO Primary Care Provide r, Attending Provider Active Start: November 30, 2023 End: November 30, 2023 Team Status: Inactive Member Role Status Dates Dontae Uribe , DO Primary Care Provide r, Attending Provider Active Start: December 01, 2023 End: December 01, 2023 Team Status: Active Member Role Status Dates Dontae Rony , DO Primary Care Provide r, Attending Provider Active Start: December 07, 2023 Team Status: Inactive Member Role Status Dates Dontae Rony , DO Primary Care Provide r, Attending Provider Active Start: December 08, 2023 End: December 08, 2023 Team Status: Active Member Role Status Dates Dontae Uribe , DO Primary Care Provide r, Attending Provider Active Start: December 15, 2023 Team Status: Inactive Member Role Status Dates Dontae Uribe , DO Primary Care Provide r, Attending Provider Active Start: December 15, 2023 End: December 15, 2023 Team Status: Inactive Member Role Status Dates Dontae Uribe , DO Primary Care Provide r, Attending Provider Active Start: December 22, 2023 End: December 22, 2023 Team Status: Inactive Member Role Status Dates Dontae Uribe , DO Primary Care Provide r, Attending Provider Active Start: December 24, 2023 End: December 24, 2023 Team Status: Inactive Member Role Status Dates Dontae Ball , DO Primary Care Provide r, Attending Provider Active Start: January 25, 2024 End: January 25, 2024 Goals (unrecognized section and content) Goals may [...] BE BASED ON THE PRIMARY CLINICAL RECORDS. [facility]. provides no warranty or guarantee of the accuracy or completeness of information in this document.
== END 2024-01-29 13:32 | disposition home or self-care (01) ==
LOC: US 13:32
PROVIDERS: PCP Internal Medicine; Visit Provider Internal Medicine
DX: R09.89 Other specified symptoms and signs involving the circulatory and respiratory systems (principal); R51.9 Headache, unspecified; R42 Dizziness and giddiness
CPT/HCPCS: 93880

== ENCOUNTER 2024-02-16 08:28 | Outpatient (OUT) | payer MEDICARE, SELFPAY ==
[2024-02-16 09:23] LABS: Anion Gap 10.8; BUN Creatinine Ratio 17.1; Calcium 9.1 mg/dL (8.5-10.1); Chloride 104 mmol/L (98-107); Estimated GFR (African America >60 (>=60); Estimated GFR (Non-African Ame >60 (>=60); Glucose 98 mg/dL (74-106); Potassium 4.8 mmol/L (3.5-5.1); Sodium 141 mmol/L (136-145)
== END 2024-02-16 08:29 | disposition home or self-care (01) ==
LOC: LAB 08:29
PROVIDERS: PCP Internal Medicine; Visit Provider Internal Medicine Interventional Cardiology
DX: I10 Essential (primary) hypertension (principal)
CPT/HCPCS: 36415; 80048

== ENCOUNTER 2024-05-10 12:23 | Outpatient (RCR) | payer MEDICARE, SELFPAY | END 2024-06-02 15:28 | disposition home or self-care (01) | LOC: PT 12:23 | PROVIDERS: PCP Internal Medicine; Visit Provider Internal Medicine | DX: M54.50 Low back pain, unspecified (principal) | CPT/HCPCS: 20561; 97010; 97035; 97110; 97140; 97162; 97535; G0283 ==

== ENCOUNTER 2024-06-01 08:29 | Outpatient (OUT) | payer MEDICARE, SELFPAY ==
--- NOTE | 2024-06-01 08:35 | MR_ITS ---
The [address] [address] Patient Name: SJ HALL MRN: [id number] date: 1950 Sex: F Assigned Patient Location: MRI Current Patient Location: MRI Accession/Order Number: [id number] Exam Date: 06/01/2024 09:00 Report Date: 06/01/2024 10:25 At the request of: ABEL ROLAND Procedure: MR lumbar spine wo con MR lumbar spine wo con, 06/01/2024 9:00 AM EDT INDICATION: Low Back Pain, Spondylosis COMPARISON: Prior x-ray of lumbar spine dated 12/01/[address] of abdomen dated 02/01/2020 TECHNIQUE: Multiplanar, multisequential MRI images of lumbar spine were obtained without contrast. FINDINGS: For dictation purposes, the lowest complete disc space in the lumbar spine considered as L5-S1. There is normal physiologic lumbar lordosis with dextroscoliosis centered on L3-4. There is grade 1-2 anterolisthesis of L4 on L5. The vertebral height is relatively preserved. The conus medullaris is at the level of L1. No signal abnormality within the visualized spinal cord is noted. Level of T12-L1 is unremarkable. At the level of L1-L2, there are disc bulge with moderate left neuroforaminal narrowing and no canal stenosis. At the level of L2-L3, there are disc bulge with mild right and severe left neuroforaminal narrowing and no canal stenosis. At the level of L3-4, there are disc bulge with moderate left and mild right neuroforaminal narrowing and moderate canal stenosis. At the level of L4-5, there are grade 1-2 anterolisthesis uncovering disc bulge with severe right and moderate left neuroforaminal narrowing and severe canal stenosis. There is ligamentum flavum thickening and facet joint arthrosis contributing to canal stenosis At the level of L5-S1, there is no neuroforaminal narrowing and no canal stenosis. The paraspinal muscles are unremarkable. MR/MR lumbar spine wo con IMPRESSION: Moderate to severe degenerative changes of lumbar spine in particular at L3-L4 and L4-L5. Electronically authenticated by: AVERY RIVERA Date: 06/01/2024 10:25
--- OUTSIDE RECORDS SUMMARY | 2024-06-01 08:49 | XMS_ITS | CCD ---
Author Organization [facility] Care Team Providers Care Cyber Security Analyst Name Role Phone MARIA E FELISA Attending Unavailable BALL DONTAE Primary Care Unavailable BALL DONTAE Referring Unavailable MASROOR, FLEISA Admitting Unavailable ERIROOR, FELISA Attending Unavailable ASUNCION, DONTAE Primary Care Unavailable BALL, DONTAE Referring Unavailable MASROOR, FELISA Admitting Unavailable MASROOR, FELISA Surgeon Unavailable DC Procedure Practitioner Unavailab le ELTAHAWY, EHAB A Admitting Unavailable ELTAHAWY, EHAB A Attending Unavailable ASUNCION, DONTAE Primary Care Unavailable ASUNCION, DONTAE Referring Unavailable Travis Richter Unavailable [phone] Dontae Uribe Unavailable PIPPA, TOMÁS Admitting [...] JANAY Attending Unavailable ELTAHAWY, JANAY Attending Unavailable ELTAHAWY, JANAY Attending Unavailable PAM PALACIO Attending Unavailable YUNG VIGIL Referring Unavailable Allergies Allergy Classification Reported Allergen(s) Allergy Type Date of Onset Reaction(s) Facility Cephalosporins (antibiotic) (2 sources) Cephalosporins (Antibiotic) Drug Allergy 01-25-20 [facility] Penicillins (antibiotic) (2 sources) Penicillin G Benzathine Drug Allergy 01-25-20 Unknown Reaction, [facility] Quinolones (antibiotic) (1 source) Ciprofloxacin Drug Allergy 01-25-20 [facility] Sulfonamides (antibiotic) (1 source) Sulfonamides (Antibiotic) Drug Allergy 01-25-20 [facility] (4 sources) black walnut pollen extract; Translations: [[id number] REDUCTASE INHIBITORS] Drug Allergy 07-31-20 09 [facility] Repository (14 sources) Cephalosporins (Antibiotic); Translations: [CEPHALOSPORINS] Drug allergy (disorder) 07-31-20 09 [facility] Repository (1 source) Ciprofloxacin; Translations: [CIPRO] Drug Allergy 03-27-20 21 [facility] Repository (14 sources) Penicillins; Translations: [PENICILLINS] Drug allergy (disorder) 07-31-20 09 [facility] Repository (12 sources) Hmg-Coa Reductase Inhibitors (Statins) Propensity to adverse reactions SWELLING [employer] Other (12 sources) Pcn, Cephalasporins Propensity to adverse reactions (Eriberto) 10/07/2012 [employer] Other (20 sources) Ciprofloxacin; Translations: [CIPROFLOXACIN] Drug Allergy 08-30-20 13 Unknown, [facility] (13 sources) Substance with sulfonamide structure and antibacterial mechanism of action (substance) Drug allergy Unknown [employer] Other (2 sources) Sulfonamides (Antibiotic) Drug allergy (disorder) 06-23-20 13 [facility] Repository (6 sources) HMG-CoA reductase inhibitor Drug allergy Unknown [employer] Other (6 sources) Penicillin G Benzathine & Proc Drug allergy 01-15-20 18 Unknown [employer] Other (4 sources) Statins Support *DIETARY PRODUCTS/DIETARY MANAGEME Propensity to adverse reactions 01-15-20 Unknown [employer] Other (1 source) Substance with penicillin structure and antibacterial mechanism of action (substance) Drug allergy Unknown [facility] Other (6 sources) Medicinal cephalosporin and acting as antibacterial agent (FN) Drug allergy 01-15-20 18 Unknown [employer] Other (1 source) patient allergy list reviewed by nurse or physicia Propensity to adverse reactions 01-15-20 Comment:Done [employer] Other (10 sources) Cefaclor Drug Allergy 03-10-20 22 [facility] (10 sources) Penicillin G Benzathine Allergy to substance 08-16-20 23 Unknown Reaction [facility] (10 sources) Sulfonamides (Antibiotic) Allergy to substance 08-16-20 23 [facility] (11 sources) [id number] Reductase Inhibitor Allergy to substance 08-16-20 23 Joint Pain [facility] Medications Current Medications Medication Drug Class(es) Dates Sig (Normalized) Sig (Original) acetaminophen 300 mg / codeine phosphate 30 mg oral tablet (11 sources) Opioid Agonist Start: 03-20-2024 End: 05-30-2024 take 1 tablet by mouth every six hours Acetaminophen-Cod eine Active 1 TAB PO Every 6 hours 09 04May 30, 2024 4:31pm Start: 03-20-2024 End: 03-20-2024 take 1 tablet by mouth every six hours Acetaminophen-Codeine Discontinued 1 TAB PO Every 6 hours 09 04March 20, 2024 12:00am March 20, 2024 2:46pm [id number] 200 actuat albuterol 0.09 mg/actuat metered dose inhaler (20 sources) beta2-Adrenergic Agonist Start: 04-24-2024 Albut cheyanne Sulfate Active 0 .ROUTE .COMPLEX April 24, 2024 11:05am INHALE 2 PUFFS EVERY 4 HOURS NEEDED FOR COUGH AND SHORTNESS OF BREATH 17 Start: 11-30-2023 End: 04-24-2024 take 1 puff(s) by inhalation every four hours Albuterol Sulfate Discontinued 1 PUFF INHALATION Every 4 hours November 30, 2023 12:00am April 24, 2024 11:05am take 1 puff(s) by in halation every four hours as needed Albuterol Sulfate HFA 108 (90 Base) MCG/ACT 1 puff as needed Inhalation every 4 hrs Active aspirin 81 mg delayed release oral tablet (20 sources) Platelet Aggregation Inhibitor, Nonsteroidal Anti-inflammatory Drug Start: 07-07-2017 take 1 tablet by mouth once daily Aspirin (Aspir-Low) 81 mg Tablet,Delayed Release (Dr/Ec) Active 1 TAB PO Daily July 07, 2017 12:00am take 2 tablets by [facility] every twenty-four hours Aspirin 81 MG 2 tablet Orally Once a day Active Calcium (11 sources) Phosphate Binder, Calcium Start: 11-30-2023 take 1 tablet by mouth once daily [id number] (Caltrate 600-D Plus Minerals) 600 mg calcium- [...] 07, 2017 12:00am March 10, 2022 9:44am Dicyclomine (20 sources) Anticholinergic Start: 05-06-2024 take 1 capsule by mouth four times daily as needed for pain Dicyclomine Active 0 .ROUTE .COMPLEX 360 May 06, 2024 12:09pm TAKE 1 CAPSULE BY MOUTH 4 TIMES DAILY NEEDED FOR ABDOMINAL PAIN Start: 04-14-2024 End: 05-06-2024 take 10 mg by mouth four times daily Dicyclomine Discontinued 10 MG PO Four times daily April 14, 2024 12:00am May 06, 2024 12:09pm take 1 capsule by mo [facility] four times daily as needed 1 ml evolocumab 140 mg/ml prefilled syringe (20 sources) PCSK9 Inhibitor Start: 03-10-2022 Evolocumab (Re patha Syringe) 140 mg/mL Syringe Active 140 MG SUBCUT EVERY 2 WEEKS March 10, 2022 12:00am inject 1 mL by subcu taneous injection every month Repatha 140 MG/ML 1 mL Subcutaneous ONCE A MONTH Active Repatha Active ezetimibe 10 mg oral tablet (20 sources) Dietary Cholesterol Absorption Inhibitor Start: 03-10-2022 take 1 tablet by mouth once daily Ezetimibe (Zetia) 10 mg Tablet Active 10 MG PO Daily March 10, 2022 12:00am Zetia Active furosemide 20 mg oral tablet (18 sources) Loop Diuretic Start: 11-30-2023 take 1 tablet by mouth once daily Furosemide (Lasix) 20 mg tablet Active 20 MG PO Daily November 30, 2023 12:00am take 1 tablet by [facility] every twenty-four hours Lasix 20 MG 1 tablet Orally Once a day Active linaclotide 0.145 mg oral capsule (20 sources) Guanylate Cyclase-C Agonist Start: 01-09-2014 take 1 tablet by mouth once daily Linaclotide Active 1 TAB PO Daily July 07, 2017 12:00am losartan potassium 50 mg oral tablet (20 sources) Angiotensin 2 Receptor Mariah Start: 04-14-2024 take 50 mg by mouth once daily Losartan Active 50 MG PO Daily 30 April 14, 2024 9:20am Start: 03-10-2022 End: 04-14-2024 take 25 mg by mouth once daily Losartan Discontinued 2 5 MG PO Daily March 10, 2022 12:00am April 14, 2024 9:24am Losartan Potassi um Active mupirocin 0.02 mg/mg topical ointment (4 sources) RNA Synthetase Inhibitor Antibacterial Start: 04-14-2024 Mupirocin Active 1 APPLIC TOPICAL Twice daily 11 07April 14, 2024 12:00am nitroglycerin 0.4 mg sublingual tablet (8 sources) Nitrate Vasodilator Start: 12-24-2023 Nitroglycerin Active 0.4 MG SUBLINGUAL every 5 to 15 minutes December 24, 2023 12:00am do not exceed 3 doses per episode ondansetron 4 mg disintegrating oral tablet (5 sources) Serotonin-3 Receptor Antagonist Start: 03-20-2024 take 4 mg by mouth every six hours Ondansetron Active 4 MG PO Every 6 hours 06 02March 20, 2024 12:00am Plenvu Bowel Prep PEG 3350 140g, Sodium [...] day before your procedure for 1 days BIN:[id number] PCN: [id number] GROUP:[id number] ID:[id number] Nov, Not-Taking Tylenol Extra Strength 500 M G (14 sources) take 1 tablet by mouth every six hours as needed take 1 tablet by lucita th every six hours as needed Tylenol Extra Strength 500 MG 1 tablet a s needed Orally every 6 hrs Not-Taking Completed/Discontinued Medications Medication Drug Class(es) Dates Sig (Normalized) Sig (Original) acetaminophen 500 mg oral tablet (11 sources) Start: 07-07-2017 End: 03-10-2022 take 1 tablet by mouth every six hours Acetaminophen (Tylenol Extra Strength) 500 mg Tablet Discontinued 1 TAB PO Q6H July 07, 2017 12:00am March 10, 2022 9:44am amLODIPine 2.5 mg oral tablet (20 sources) Dihydropyridine Calcium Channel Mariah Start: 12-24-2023 End: 04-12-2024 take 2.5 mg by mouth once daily Amlodipine Discontinued 2.5 MG PO Daily December 24, 2023 12:00am April 12, 2024 8:32pm Start: 07-07-2017 End: 03-10-2022 take 1 tablet by mouth once daily Amlodipine Discontinued 1 TAB PO Daily July 07, 2017 12:00am Krystle 21st, 2022 9:44am azithromycin 250 mg oral tablet (20 sources) Macrolide Antimicrobial Start: 11-30-2023 End: 05-08-2024 Azithromycin Discontinued 250 MG PO As Directed 6 5 March 20, 2024 1:39pm May 08, 2024 3:45pm Start: 05-25-2023 take 250 mg by mouth once daily Start: 10-16-2022 Azithromycin 2 50 MG as directed Orally daily for 5 days Feb, Not-Taking Azithromycin 250 MG 2 tablet today followed by 1 daily Orally DAILY for 5 days Not-Taking benzonatate 200 mg oral capsule (3 sources) Non-narcotic Antitussive Start: 05-27-2023 take 1 capsule by mouth every eight hours Benzonatate 200 MG 1 capsule Orally Three times a day for 10 days May, Not-Taking docusate sodium 100 mg oral capsule (20 sources) Start: 07-07-2017 End: 03-10-2022 take 1 capsule by mouth once daily Docusate Sodium (Colace) 100 mg Capsule Discontinued 100 MG PO Daily July 07, 2017 12:00am March 10, 2022 9:44am predniSONE 1 mg/ml oral solution (20 sources) Start: 02-21-2024 End: 05-08-2024 take 5 mg by mouth three times daily Prednisone Discontinued 5 MG PO Three times daily 120 14 February 21, 2024 2:34pm April 07, 2024 10:59am take 5 mL by mouth three times d aily predniSONE 5 MG/5ML 5 mL Orally three times daily for 10 days Active take 5 mL by mouth once daily pr edniSONE 5 MG/5ML 5 mL Orally Once a day Active Problems Active Problems Problem Classification Problem Date Documented Da te Episodic/Chronic Abdominal hernia (14 sources) Hiatal hernia; Translations: [Diaphragmatic hernia without obstruction or gangrene] Episodic Abdominal pain (20 sources) Abdominal pain; Translations: [Unspecified abdominal pain] Onset: 2 Resolved: 2 Episodic Acute bronchitis (17 sources) Acute bronchitis; Translations: [Acute bronchitis due [...] Chronic Conditions associated with dizziness or vertigo (11 sources) Dizziness; Translations: [Dizziness and giddiness] 01-25-2024 Episodic Coronary atherosclerosis and other heart disease (20 sources) Coronary arteriosclerosis; Translations: [Atherosclerotic heart disease of ambler coronary artery without angina pectoris] Onset: 0 Resolved: 2 Chronic Coronary atherosclerosis and other heart disease (4 sources) Bypass stent graft present; Translations: [Presence of aortocoronary bypass graft] Episodic Deficiency and other anemia (11 sources) Anemia; Translations: [Anemia, unspecified] 11-23-2023 Episodic Deficiency and other anemia (9 sources) Pernicious anemia; Translations: [Vitamin B12 deficiency anemia due to intrinsic factor deficiency] 12-15-2023 Episodic Deficiency and other anemia (8 sources) Vitamin B12 deficiency anemia due to [...] anus and rectum] Episodic Headache; including migraine (20 sources) Migraine with aura; Translations: [Migraine with aura, not intractable, without status migrainosus] Chronic Headache; including migraine (11 sources) Headache; Translations: [Headache] 01-25-2024 Episodic Malaise and fatigue (2 sources) Other fatigue; Translations: [Other fatigue] Onset: 4 Episodic Nausea and vomiting (9 sources) Nausea; Translations: [Nausea] Resolved: 0 03-20-2024 Episodic Nonspecific chest pain (20 sources) Chest wall pain; Translations: [Other chest pain] Resolved: 0 12-24-2023 Episodic Osteoarthritis (17 sources) Localized, primary osteoarthritis of the shoulder region; Translations: [Primary osteoarthritis, right shoulder] Chronic Osteoporosis (20 sources) Primary osteoporosis; Translations: [Age-related osteoporosis without current pathological fracture] 11-30-2023 Chronic Other aftercare (1 source) 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 (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 therapy Episodic Other connective tissue disease (13 sources) Tendinitis of right rotator cuff; Translations: [Other shoulder lesions, right shoulder] Episodic Other connective tissue disease (4 sources) Mass of shoulder region; Translations: [Other shoulder lesions, right shoulder] Episodic Other gastrointestinal disorders (20 sources) Irritable bowel syndrome characterized by constipation; Translations: [Irritable bowel syndrome with constipation] 11-30-2023 Chronic Other gastrointestinal disorders (14 sources) Constipation; Translations: [Constipation, unspecified] Episodic Other gastrointestinal disorders (20 sources) Dysphagia; Translations: [Dysphagia, unspecified] 09-01-2023 Episodic Other gastrointestinal disorders (2 sources) Dysphagia, unspecified Onset: 2 Resolved: 2 Episodic Other gastrointestinal disorders (2 sources) Constipation, unspecified Onset: 2 Resolved: 2 Episodic Other gastrointestinal disorders (4 sources) H/O: gastrointestinal disease; Translations: [Personal history of other diseases of the digestive system] Episodic Other infections; including parasitic (11 sources) Post-viral disorder; 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] 11-30-2023 Chronic Other injuries and conditions due to external causes (4 sources) History of fall; Translations: [History of falling] Episodic Other lower respiratory disease (2 sources) Shortness of breath; Translations: [Shortness of breath] Onset: 4 Episodic Other lower respiratory disease (5 sources) Cough; Translations: [Cough] 03-20-2024 Episodic Other non-traumatic joint disorders (4 sources) Shoulder joint pain; Translations: [Pain in right shoulder] Episodic Other screening for suspected conditions (not mental disorders or infectious disease) (7 sources) Encounter for screening mammogram for malignant neoplasm of breast; Translations: [Abnormal result of other cardiovascular function study] Episodic Other skin disorders (17 sources) Vesicular eczema of hands and/or feet; Translations: [Dyshidrosis [pompholyx]] Episodic Other skin disorders (11 sources) Vesicular eczema; Translations: [Dyshidrosis [pompholyx]] 11-30-2023 [...] [Asymptomatic menopausal state] Episodic Residual codes; unclassified (11 sources) Menopause present; Translations: [Asymptomatic menopausal state] 11-30-2023 Episodic Spondylosis; intervertebral disc disorders; other back problems (20 sources) Lumbar spondylosis; Translations: [Spondylosis without myelopathy or radiculopathy, lumbar region] Chronic Spondylosis; intervertebral disc disorders; other back problems (3 sources) Radiculopathy, site unspecified; Translations: [Low back pain] Episodic Sprains and strains (17 sources) Neck sprain; Translations: [Strain of muscle, fascia and tendon at neck level, initial encounter] Episodic Unclassified (1 source) Other post infection and related fatigue syndromes; 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] Onset: 4 Viral infection (4 sources) Disease caused by [...] (suspected) exposure to COVID-19] Resolved: 02-03-2021 Episodic Otitis media and related conditions (6 sources) Unspecified Eustachian tube disorder, left ear; Translations: [Eustachian tube salpingitis] Onset: 12-08-2018 Episodic Residual codes; unclassified (4 sources) Edema, unspecified; Translations: [EDEMA UNSPECIFIED] Onset: 03-05-2022 Episodic Unclassified (11 sources) Post-COVID syndrome; Translations: [Post-COVID syndrome] Unclassified (1 source) Acute cough R05.1 Unclassified (2 sources) 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); Translations: [Post-COVID syndrome] Unclassified (1 source) Other post infection and related fatigue syndromes; 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] Onset: 01-05-2024 Results Test Name Value Interpretation Reference Range Facility Estimated glomerular filtrat ion rate (GFR) non- Americanon 02-16-2024 GFR/1.73 sq M.predicted among non-blacks MDRD (S/P/Bld) [Vol rate/Area] mL/min/{1.73_m2} >=60 [facility] Laboratory - Chemistry and C hemistry - challengeon 02-16-2024 Calcium [Mass/Vol] 9.1 mg/dL 8.5-10.1 [facility] Chloride [Moles/Vol] 104 mmol/L 98-107 [facility] CO2 [Moles/Vol] 31.0 mmol/L 21.0-32.[address] [facility] Creatinine [Mass/Vol] 0.76 mg/dL 0.55-1.02 [facility] GFR/1.73 sq M.predicted MDRD (S/P/Bld) [Vol rate/Area] mL/min/{1.73_m2} >=60 [facility] Glucose [Mass/Vol] 98 mg/dL 74-106 [facility] Potassium [Moles/Vol] 4.8 mmol/L 3.5-5.1 [facility] Sodium [Moles/Vol] 141 mmol/L 136-145 [facility] Urea nitrogen [Mass/Vol] 13.0 mg/dL 7.0-18.0 [facility] Urea nitrogen/Creatinine [Mass ratio] 17.1 mg/mg [facility] Serum or plasma anion gap de terminationon 02-16-2024 Anion gap [Moles/Vol] 10.8 mmol/L [facility] Office Visiton 02-02-2024 Follow-up visit [id number] Angelo Brewster 1950 Date Provider Department Center 02/02/2024 JANAY LIRA Family History Problem Relation Age of Onset Coronary artery disease Mother Coronary artery disease Father Alzheimer's disease Father Family Status - Relation Status Age at Mother Father Level of Service:[id number] DC OFFICE/OUTPATIENT ESTABLISHED LOW MDM 20 MIN Normal [facility] Laboratory - Hematology and Cell countson 01-28-2024 ESR (Bld) [Velocity] 21 mm/h <=30 [facility] Office Visiton 01-05-2024 Follow-up visit [id number] Angelo Brewster 1950 Date Provider Department Center 01/05/2024 JANAY LIRA Family History Problem Relation Age of Onset Coronary artery disease Mother Coronary artery disease Father Alzheimer's disease Father Family Status - Relation Status Age at Mother Father Level of Service:[id number] DC OFFICE/OUTPATIENT ESTABLISHED LOW MDM 20 MIN Normal [facility] Basophils Auto (Bld) [#/Vol] on 12-15-2023 Basophils (Bld) [#/Vol] 0.1 10 3/uL 0.0-0.1 [facility] Basophils/100 WBC Auto (Bld) on 12-15-2023 Basophils/100 WBC (Bld) 1.1 % 0.2-2.0 [facility] Eosinophils/100 WBC Auto (Bl d)on 12-15-2023 Eosinophils/100 WBC (Bld) 3.0 % 0.9-7.0 [facility] Erythrocyte distribution wid th Auto (RBC) [Ratio]on 12-15-2023 Erythrocyte distribution width (RBC) [Ratio] 12.8 % 11.0-15.0 [facility] Estimated glomerular filtrat ion rate (GFR) non- Americanon 12-15-2023 GFR/1.73 sq M.predicted among non-blacks MDRD (S/P/Bld) [Vol rate/Area] mL/min/{1.73_m2} >=60 [facility] Globulin Calc (S) [Mass/Vol] on 12-15-2023 Globulin (S) [Mass/Vol] 3.8 g/dL [facility] Hematocrit Auto (Bld) [Volum e fraction]on 12-15-2023 Hematocrit (Bld) [Volume fraction] 36.6 % 36.0-48.0 [facility] Hemoglobin [Mass/volume] in Bloodon 12-15-2023 Hemoglobin (Bld) [Mass/Vol] 11.8 g/dL 12.0-16.0 [facility] Laboratory - Chemistry and C hemistry - challengeon 12-15-2023 Albumin [Mass/Vol] 4.0 g/dL 3.4-5.0 [facility] ALP [Catalytic activity/Vol] 63 U/L 46-116 [facility] ALT [Catalytic activity/Vol] 22 U/L 14-59 [facility] AST [Catalytic activity/Vol] 16 U/L 15-37 [facility] Bilirubin [Mass/Vol] 0.4 mg/dL 0.2-1.0 [facility] Calcium [Mass/Vol] 9.3 mg/dL 8.5-10.1 [facility] Chloride [Moles/Vol] 103 mmol/L 98-107 [facility] CO2 [Moles/Vol] 30.5 mmol/L 21.0-32.[address] [facility] Creatinine [Mass/Vol] 0.75 mg/dL 0.55-1.02 [facility] Free T4 [Mass/Vol] 1.04 ng/dL 0.76-1.46 [facility] GFR/1.73 sq M.predicted MDRD (S/P/Bld) [Vol rate/Area] mL/min/{1.73_m2} >=60 [facility] Glucose [Mass/Vol] 97 mg/dL 74-106 [facility] Natriuretic peptide B (Bld) [Mass/Vol] 193.0 pg/mL <=900.0 [facility] Potassium [Moles/Vol] 4.2 mmol/L 3.5-5.1 [facility] Protein [Mass/Vol] 7.8 g/dL 6.4-8.2 [facility] Sodium [Moles/Vol] 143 mmol/L 136-145 [facility] TSH Qn 1.181 m[IU]/L 0.358-3.740 [facility] Urea nitrogen [Mass/Vol] 14.0 mg/dL 7.0-18.0 [facility] Urea nitrogen/Creatinine [Mass ratio] 18.7 mg/mg [facility] Laboratory - Hematology and Cell countson 12-15-2023 Immature granulocytes/100 WBC (Bld) 0.2 % 0.0-0.5 [facility] Leukocytes [#/volume] correc andrew for nucleated erythrocytes in Blood by Automated counon 12-15-2023 WBC corrected for nucl RBC Auto (Bld) [#/Vol] 6.7 10 3/uL 4.0-11.0 [facility] Lymphocytes Auto (Bld) [#/Vo l]on 12-15-2023 Lymphocytes (Bld) [#/Vol] 1.5 10 3/uL 1.2-3.8 [facility] Lymphocytes/100 WBC Auto (Bl d)on 12-15-2023 Lymphocytes/100 WBC (Bld) 22.6 % 20.5-60.0 [facility] MCH Auto (RBC) [Entitic mass ]on 12-15-2023 MCH (RBC) [Entitic mass] 31.4 pg 26.7-34.0 [facility] MCHC Auto (RBC) [Mass/Vol]on 12-15-2023 MCHC (RBC) [Mass/Vol] 32.2 g/dL 29.9-35.2 [facility] MCV Auto (RBC) [Entitic vol] on 12-15-2023 MCV (RBC) [Entitic vol] 97.3 fL 81.0-99.0 [facility] Monocytes Auto (Bld) [#/Vol] on 12-15-2023 Monocytes (Bld) [#/Vol] 0.6 10 3/uL 0.3-0.8 [facility] Monocytes/100 WBC Auto (Bld) on 12-15-2023 Monocytes/100 WBC (Bld) 8.4 % 1.7-12.0 [facility] Neutrophils Auto (Bld) [#/Vo l]on 12-15-2023 Neutrophils (Bld) [#/Vol] 4.3 10 3/uL 1.4-6.5 [facility] Neutrophils/100 WBC Auto (Bl d)on 12-15-2023 Neutrophils/100 WBC (Bld) 64.7 % 43.0-75.0 [facility] No Panel Informationon 12-14 Eosinophils # (Auto) 0.2 10 3/uL 0.0-0.7 [facility] Immature Granulocyte # (Auto) 0.01 10 3/uL 0.00-0.03 [facility] Office Visiton 12-15-2023 Follow-up visit [id number] Angelo Brewster 1950 F Date Provider Department Center 12/15/2023 [id number], JANAY CARD [facility] Family History Problem Relation Age of Onset Coronary artery disease Mother Coronary artery disease Father Alzheimer's disease Father Family Status - Relation Status Age at Mother Father Level of Service:[id number] DC OFFICE/OUTPATIENT ESTABLISHED MOD MDM 30 MIN Normal [facility] Platelet mean volume Auto (B ld) [Entitic vol]on 12-15-2023 Platelet mean volume (Bld) [Entitic vol] 10.1 fL 9.5-13.5 [facility] Platelets Auto (Bld) [#/Vol] on 12-15-2023 Platelets (Bld) [#/Vol] 275 10 3/uL 150-450 [facility] RBC Auto (Bld) [#/Vol]on RBC (Bld) [#/Vol] 3.76 10 6/uL 4.20-5.40 [facility] Serum or plasma albumin/glob ulin mass ratioon 12-15-2023 Albumin/Globulin [Mass ratio] 1.1 {ratio} [facility] Serum or plasma anion gap de terminationon 12-15-2023 Anion gap [Moles/Vol] 13.7 mmol/L [facility] Basophils Auto (Bld) [#/Vol] on 12-07-2023 Basophils (Bld) [#/Vol] 0.1 10 3/uL 0.0-0.1 [facility] Basophils/100 WBC Auto (Bld) on 12-07-2023 Basophils/100 WBC (Bld) 0.7 % 0.2-2.0 [facility] Cholesterol in LDL Calc [Mas s/Vol]on 12-07-2023 Cholesterol in LDL [Mass/Vol] 54.0 mg/dL [facility] Comment on above: <100 mg/dl [id number] 0-129 mg/dl NEAR OR ABOVE [id number] mg/dl BORDERLINE [id number] mg/dl HIGH>190 mg/dl VERY HIGH Cholesterol in VLDL Calc [Ma ss/Vol]on 12-07-2023 Cholesterol in VLDL [Mass/Vol] 38.0 mg/dL [facility] Eosinophils/100 WBC Auto (Bl d)on 12-07-2023 Eosinophils/100 WBC (Bld) 2.6 % 0.9-7.0 [facility] Erythrocyte distribution wid th Auto (RBC) [Ratio]on 12-07-2023 Erythrocyte distribution width (RBC) [Ratio] 12.9 % 11.0-15.0 [facility] Estimated glomerular filtrat ion rate (GFR) non- Americanon 12-07-2023 GFR/1.73 sq M.predicted among non-blacks MDRD (S/P/Bld) [Vol rate/Area] mL/min/{1.73_m2} >=60 [facility] Globulin Calc (S) [Mass/Vol] on 12-07-2023 Globulin (S) [Mass/Vol] 3.5 g/dL [facility] Glucose mean value [Mass/vol ume] in Blood Estimated from glycated hemoglobinon 12-07-2023 Average glucose Estimated from glycated hemoglobin (Bld) [Mass/Vol] 111 mg/dL [facility] Hematocrit Auto (Bld) [Volum e fraction]on 12-07-2023 Hematocrit (Bld) [Volume fraction] 37.5 % 36.0-48.0 [facility] Hemoglobin [Mass/volume] in Bloodon 12-07-2023 Hemoglobin (Bld) [Mass/Vol] 12.2 g/dL 12.0-16.0 [facility] Laboratory - Chemistry and C hemistry - challengeon 12-07-2023 Albumin [Mass/Vol] 3.8 g/dL 3.4-5.0 [facility] ALP [Catalytic activity/Vol] 63 U/L 46-116 [facility] ALT [Catalytic activity/Vol] 22 U/L 14-59 [facility] AST [Catalytic activity/Vol] 15 U/L 15-37 [facility] Bilirubin [Mass/Vol] 0.4 mg/dL 0.2-1.0 [facility] Calcium [Mass/Vol] 9.0 mg/dL 8.5-10.1 [facility] Chloride [Moles/Vol] 104 mmol/L 98-107 [facility] Cholesterol [Mass/Vol] 152 mg/dL <=200 [facility] Cholesterol in HDL [Mass/Vol] 60 mg/dL 40-60 [facility] Comment on above: > or =60 mg/dl - LOW CARDIOVASCULAR RISK<40 mg/dl - HIGH CARDIOVASCULAR RISK CO2 [Moles/Vol] 29.2 mmol/L 21.0-32.[address] [facility] Creatinine [Mass/Vol] 0.75 mg/dL 0.55-1.02 [facility] GFR/1.73 sq M.predicted MDRD (S/P/Bld) [Vol rate/Area] mL/min/{1.73_m2} >=60 [facility] Glucose [Mass/Vol] 88 mg/dL 74-106 [facility] Potassium [Moles/Vol] 4.2 mmol/L 3.5-5.1 [facility] Protein [Mass/Vol] 7.3 g/dL 6.4-8.2 [facility] Sodium [Moles/Vol] 143 mmol/L 136-145 [facility] Triglyceride [Mass/Vol] 190 mg/dL <=150 [facility] TSH Qn 1.222 m[IU]/L 0.358-3.740 [facility] Urea nitrogen [Mass/Vol] 15.0 mg/dL 7.0-18.0 [facility] Urea nitrogen/Creatinine [Mass ratio] 20.0 mg/mg [facility] Laboratory - Hematology and Cell countson 12-07-2023 HbA1c (Bld) [Mass fraction] 5.5 % 4.5-6.2 [facility] Comment on above: ADA RECOMMENDED LIMI T 4.0 - 6.0ADA THERAPEUTIC TARGET < 7.0ACTION SUGGESTED> 7.0 Immature granulocytes/100 WBC (Bld) 0.1 % 0.0-0.5 [facility] Leukocytes [#/volume] correc andrew for nucleated erythrocytes in Blood by Automated counon 12-07-2023 WBC corrected for nucl RBC Auto (Bld) [#/Vol] 8.4 10 3/uL 4.0-11.0 [facility] Lymphocytes Auto (Bld) [#/Vo l]on 12-07-2023 Lymphocytes (Bld) [#/Vol] 1.4 10 3/uL 1.2-3.8 [facility] Lymphocytes/100 WBC Auto (Bl d)on 12-07-2023 Lymphocytes/100 WBC (Bld) 16.6 % 20.5-60.0 [facility] MCH Auto (RBC) [Entitic mass ]on 12-07-2023 MCH (RBC) [Entitic mass] 31.9 pg 26.7-34.0 [facility] MCHC Auto (RBC) [Mass/Vol]on 12-07-2023 MCHC (RBC) [Mass/Vol] 32.5 g/dL 29.9-35.2 [facility] MCV Auto (RBC) [Entitic vol] on 12-07-2023 MCV (RBC) [Entitic vol] 97.9 fL 81.0-99.0 [facility] Monocytes Auto (Bld) [#/Vol] on 12-07-2023 Monocytes (Bld) [#/Vol] 0.6 10 3/uL 0.3-0.8 [facility] Monocytes/100 WBC Auto (Bld) on 12-07-2023 Monocytes/100 WBC (Bld) 7.5 % 1.7-12.0 [facility] Neutrophils Auto (Bld) [#/Vo l]on 12-07-2023 Neutrophils (Bld) [#/Vol] 6.1 10 3/uL 1.4-6.5 [facility] Neutrophils/100 WBC Auto (Bl d)on 12-07-2023 Neutrophils/100 WBC (Bld) 72.5 % 43.0-75.0 [facility] No Panel Informationon 12-06 Eosinophils # (Auto) 0.2 10 3/uL 0.0-0.7 [facility] Immature Granulocyte # (Auto) 0.01 10 3/uL 0.00-0.03 [facility] Platelet mean volume Auto (B ld) [Entitic vol]on 12-07-2023 Platelet mean volume (Bld) [Entitic vol] 9.9 fL 9.5-13.5 [facility] Platelets Auto (Bld) [#/Vol] on 12-07-2023 Platelets (Bld) [#/Vol] 279 10 3/uL 150-450 [facility] RBC Auto (Bld) [#/Vol]on RBC (Bld) [#/Vol] 3.83 10 6/uL 4.20-5.40 [facility] Serum or plasma albumin/glob ulin mass ratioon 12-07-2023 Albumin/Globulin [Mass ratio] 1.1 {ratio} [facility] Serum or plasma anion gap de terminationon 12-07-2023 Anion gap [Moles/Vol] 14.0 mmol[facility] or plasma total choles terol/high density lipoprotein (HDL) cholesterol mass darian 12-07-2023 Cholesterol.total/Cho lesterol in HDL [Mass ratio] 2.5 {ratio} [facility] Comment on above: 3.3 - 4.4 LOW RISK4. 4 - 7.1 AVERAGE RISK7.1 - 11.0 MODERATE RISK>11.0 HIGH RISK Basophils Auto (Bld) [#/Vol] on 11-26-2023 Basophils (Bld) [#/Vol] 0.1 10 3/uL 0.0-0.1 [facility] Basophils/100 WBC Auto (Bld) on 11-26-2023 Basophils/100 WBC (Bld) 1.1 % 0.2-2.0 [facility] Eosinophils/100 WBC Auto (Bl d)on 11-26-2023 Eosinophils/100 WBC (Bld) 2.2 % 0.9-7.0 [facility] Erythrocyte distribution wid th Auto (RBC) [Ratio]on 11-26-2023 Erythrocyte distribution width (RBC) [Ratio] 12.7 % 11.0-15.0 [facility] Hematocrit Auto (Bld) [Volum e fraction]on 11-26-2023 Hematocrit (Bld) [Volume fraction] 36.1 % 36.0-48.0 [facility] Hemoglobin [Mass/volume] in Bloodon 11-26-2023 Hemoglobin (Bld) [Mass/Vol] 11.4 g/dL 12.0-16.0 [facility] Iron binding capacity [Mass/ volume] in Serum or Plasmaon 11-26-2023 Iron binding capacity [Mass/Vol] 295.0 ug/dL 250.0-450.0 [facility] Iron saturation [Mass Fracti on] in Serum or Plasmaon 11-26-2023 Iron saturation [Mass fraction] 40.3 % [facility] Laboratory - Chemistry and C hemistry - challengeon 11-26-2023 Cobalamin (Vitamin B12) [Mass/Vol] 161.0 pg/mL 193.0-986.0 [facility] Ferritin [Mass/Vol] 41.0 ng/mL 8.0-252.0 [facility] Iron [Mass/Vol] 119.0 ug/dL 50.0-170.[address] [facility] Laboratory - Hematology and Cell countson 11-26-2023 Immature granulocytes/100 WBC (Bld) 0.2 % 0.0-0.5 [facility] Leukocytes [#/volume] correc andrew for nucleated erythrocytes in Blood by Automated counon 11-26-2023 WBC corrected for nucl RBC Auto (Bld) [#/Vol] 6.4 10 3/uL 4.0-11.0 [facility] Lymphocytes Auto (Bld) [#/Vo l]on 11-26-2023 Lymphocytes (Bld) [#/Vol] 1.4 10 3/uL 1.2-3.8 [facility] Lymphocytes/100 WBC Auto (Bl d)on 11-26-2023 Lymphocytes/100 WBC (Bld) 21.6 % 20.5-60.0 [facility] MCH Auto (RBC) [Entitic mass ]on 11-26-2023 MCH (RBC) [Entitic mass] 31.1 pg 26.7-34.0 [facility] MCHC Auto (RBC) [Mass/Vol]on 11-26-2023 MCHC (RBC) [Mass/Vol] 31.6 g/dL 29.9-35.2 [facility] MCV Auto (RBC) [Entitic vol] on 11-26-2023 MCV (RBC) [Entitic vol] 98.6 fL 81.0-99.0 [facility] Monocytes Auto (Bld) [#/Vol] on 11-26-2023 Monocytes (Bld) [#/Vol] 0.6 10 3/uL 0.3-0.8 [facility] Monocytes/100 WBC Auto (Bld) on 11-26-2023 Monocytes/100 WBC (Bld) 9.8 % 1.7-12.0 [facility] Neutrophils Auto (Bld) [#/Vo l]on 11-26-2023 Neutrophils (Bld) [#/Vol] 4.2 10 3/uL 1.4-6.5 [facility] Neutrophils/100 WBC Auto (Bl d)on 11-26-2023 Neutrophils/100 WBC (Bld) 65.1 % 43.0-75.0 [facility] No Panel Informationon 11-25 Eosinophils # (Auto) 0.1 10 3/uL 0.0-0.7 [facility] Folate 17.80 ng/mL 8.60-58.90 [facility] Immature Granulocyte # (Auto) 0.01 10 3/uL 0.00-0.03 [facility] Platelet mean volume Auto (B ld) [Entitic vol]on 11-26-2023 Platelet mean volume (Bld) [Entitic vol] 9.7 fL 9.5-13.5 [facility] Platelets Auto (Bld) [#/Vol] on 11-26-2023 Platelets (Bld) [#/Vol] 268 10 3/uL 150-450 [facility] RBC Auto (Bld) [#/Vol]on RBC (Bld) [#/Vol] 3.66 10 6/uL 4.20-5.40 [facility] CBC AUTO DIFFon 11-24-2022 BASO # 0.0 103/ul Normal 0.0-0.1 [facility] Comment on above: Performed By: #### H FPFCBC #### [facility] [address] [place] [address] Dr. Rigo Julio Basophils/100 WBC (Bld) 0.6 % Normal 0.2-2.0 [facility] Comment on above: Performed By: #### H FPFCBC #### [facility] [address] [place] [address] Dr. Rigo Julio EO # 0.1 103/ul Normal 0.0-0.7 [facility] Comment on above: Performed By: #### H FPFCBC #### [facility] [address] [place] [address] Dr. Rigo Julio Eosinophils/100 WBC (Bld) 1.4 % Normal 0.9-7.0 [facility] Comment on above: Performed By: #### H FPFCBC #### [facility] [address] [place] [address] Dr. Rigo Julio Erythrocyte distribution width (RBC) [Ratio] 12.8 % Normal 11.0-15.0 [facility] Comment on above: Performed By: #### H FPFCBC #### [facility] [address] [place] [address] Dr. Rigo Julio Hematocrit (Bld) [Volume fraction] 37.5 % Normal 36.0-48.0 [facility] Comment on above: Performed By: #### H FPFCBC #### [facility] [address] [place] [address] Dr. Rigo Julio Hemoglobin (Bld) [Mass/Vol] 12.3 g/dL Normal 12.0-16.0 [facility] Comment on above: Performed By: #### H FPFCBC #### [facility] [address] [place] [address] Dr. Rigo Julio IG # 0.02 10e3/ul Normal 0.00-0.03 [facility] Comment on above: Performed By: #### H FPFCBC #### [facility] [address] [place] [address] Dr. Rigo Julio IG % 0.3 % Normal 0.0-0.5 [facility] Comment on above: Performed By: #### H FPFCBC #### [facility] [address] [place] [address] Dr. Rigo Julio LYMPH # 1.3 103/ul Normal 1.2-3.8 [facility] Comment on above: Performed By: #### H FPFCBC #### [facility] [address] [place] [address] Dr. Rigo Julio Lymphocytes/100 WBC (Bld) 20.1 % Critically low 20.5-60.0 [facility] Comment on above: Performed By: #### H FPFCBC #### [facility] [address] [place] [address] Dr. Rigo Julio MCH (RBC) [Entitic mass] 31.4 pg Normal 26.7-34.0 [facility] Comment on above: Performed By: #### H FPFCBC #### [facility] [address] [place] [address] Dr. Rigo Julio MCHC (RBC) [Mass/Vol] 32.8 g/dL Normal 29.9-35.2 [facility] Comment on above: Performed By: #### H FPFCBC #### [facility] [address] [address] [address] Rigo Julio MCV (RBC) [Entitic vol] 95.7 fL Normal 81.0-99.0 [facility] Comment on above: Performed By: #### H FPFCBC #### [facility] [address] [address] [address] Rigo Julio MONO # 0.5 103/ul Normal 0.3-0.8 [facility] Comment on above: Performed By: #### H FPFCBC #### [facility] [address] [place] [address] Dr. Rigo Julio Monocytes/100 WBC (Bld) 7.3 % Normal 1.7-12.0 [facility] Comment on above: Performed By: #### H FPFCBC #### [facility] [address] [place] [address] Dr. Rigo Julio NEUT # 4.6 103/ul Normal 1.4-6.5 [facility] Comment on above: Performed By: #### H FPFCBC #### [facility] [address] [place] [address] Dr. Rigo Julio Neutrophils/100 WBC (Bld) 70.3 % Normal 43.0-75.0 [facility] Comment on above: Performed By: #### H FPFCBC #### [facility] [address] [place] [address] Dr. Rigo Julio Platelet mean volume (Bld) [Entitic vol] 9.6 fL Normal 9.5-13.5 [facility] Comment on above: Performed By: #### H FPFCBC #### [facility] [address] [place] [address] Dr. Rigo Julio PLT 272 103/ul Normal 150-450 [facility] Comment on above: Performed By: #### H FPFCBC #### [facility] [address] [place] [address] Dr. Rigo Julio RBC 3.92 106/ul Critically low 4.20-5.40 [facility] Comment on above: Performed By: #### H FPFCBC #### [facility] [address] [place] [address] Dr. Rigo Julio WBC 6.5 103/ul Normal 4.0-11.0 [facility] Comment on above: Performed By: #### H FPFCBC #### [facility] [address] [place] [address] Dr. Rigo Julio [facility] GLYCOHEMOGLOBIN A1Con 11-24-2022 Glucose [Mass/Vol] 114 mg/dL Normal [facility] Comment on above: Performed By: #### H FPFA1C #### [facility] [address] [place] [address] Dr. Rigo Julio HbA1c (Bld) [Mass fraction] 5.6 % Normal 4.5-6.2 [facility] Comment on above: Performed By: #### H FPFA1C #### [facility] [address] [place] [address] Dr. Rigo CÁRDENASIR PROFILEon 023 Albumin [Mass/Vol] 4.2 g/dL Normal 3.4-5.0 [facility] Comment on above: Performed By: #### H FPF #### [facility] [address] [place] [address] Dr. Rigo Julio Albumin/Globulin [Mass ratio] 1.2 {ratio} Normal [facility] Comment on above: Performed By: #### H FPF #### [facility] [address] [place] [address] Dr. Rigo Julio ALP [Catalytic activity/Vol] 76 U/L Normal 46-116 [facility] Comment on above: Performed By: #### H FPF #### [facility] [address] [place] [address] Dr. Rigo Julio ALT [Catalytic activity/Vol] 23 U/L Normal 14-59 [facility] Comment on above: Performed By: #### H FPF #### [facility] [address] [place] [address] Dr. Rigo Julio AST [Catalytic activity/Vol] 19 U/L Normal 15-37 [facility] Comment on above: Performed By: #### H FPF #### [facility] [address] [address] [address] Rigo Julio Bilirubin [Mass/Vol] 0.4 mg/dL Normal 0.2-1.0 [facility] Comment on above: Performed By: #### H FPF #### [facility] [address] [address] [address] Rigo Julio Calcium [Mass/Vol] 9.2 mg/dL Normal 8.5-10.1 [facility] Comment on above: Performed By: #### H FPF #### [facility] [address] [address] [address] Rigo Julio Chloride [Moles/Vol] 105 mmol/L Normal 98-107 [facility] Comment on above: Performed By: #### H FPF #### [facility] [address] [place] [address] Dr. Rigo Julio CHOL-HDL RATIO NORM SEE BELOW Normal [facility] Comment on above: Result Comment: 3.3 - 4.4 LOW RISK 4.4 - 7.1 AVERAGE RISK 7.1 - 11.0 MODERATE RISK >11.0 HIGH RISK Performed By: #### H FPF #### [facility] [address] [place] [address] Dr. Rigo Julio Cholesterol [Mass/Vol] 158 mg/dL Normal <=200 [facility] Comment on above: Performed By: #### H FPF #### [facility] [address] [address] [address] Rigo Julio Cholesterol in HDL [Mass/Vol] 59 mg/dL Normal 40-60 [facility] Comment on above: Performed By: #### H FPF #### [facility] [address] [address] [address] Rigo Julio Cholesterol in LDL [Mass/Vol] 69.0 mg/dL Normal [facility] Comment on above: Performed By: #### H FPF #### [facility] [address] [place] [address] Dr. Rigo Julio Cholesterol.total/Cho lesterol in HDL [Mass ratio] 2.7 {ratio} Normal [facility] Comment on above: Performed By: #### H FPF #### [facility] [address] [address] [address] Rigo Julio CO2 [Moles/Vol] 30.2 mmol/L Normal 21.0-32.0 [facility] Comment on above: Performed By: #### H FPF #### [facility] [address] [address] [address] Rigo Julio Creatinine [Mass/Vol] 0.79 mg/dL Normal 0.55-1.02 [facility] Comment on above: Performed By: #### H FPF #### [facility] [address] [address] [address] Rigo Julio Globulin (S) [Mass/Vol] 3.6 g/dL Normal [facility] Comment on above: Performed By: #### H FPF #### [facility] [address] [address] [address] Rigo Julio Glucose [Mass/Vol] 99 mg/dL Normal 74-106 [facility] Comment on above: Performed By: #### H FPF #### [facility] [address] [address] [address] Rigo Julio HDL NORMAL > or = 60 mg/dl - LO W CARDIOVASCULAR RISK <40 mg/dl - HIGH CARDIOVASCULAR RISK Normal [facility] Comment on above: Performed By: #### H FPF #### [facility] [address] [address] [address] Rigo Julio LDL CALC NORMAL SEE BELOW Normal [facility] Comment on above: Result Comment: <100 mg/dl OPTIMAL 100 - 129 mg/dl NEAR OR ABOVE OPTIMAL 130 - 159 mg/dl BORDERLINE HIGH 160 - 189 mg/dl HIGH >190 mg/dl VERY HIGH Performed By: #### H FPF #### [facility] [address] [address] [address] Rigo Julio Potassium [Moles/Vol] 4.8 mmol/L Normal 3.5-5.1 [facility] Comment on above: Performed By: #### H FPF #### [facility] [address] [address] [address] Rigo Julio Protein [Mass/Vol] 7.8 g/dL Normal 6.4-8.2 [facility] Comment on above: Performed By: #### H FPF #### [facility] [address] [address] [address] Rigo Julio Sodium [Moles/Vol] 143 mmol/L Normal 136-145 [facility] Comment on above: Performed By: #### H FPF #### [facility] [address] [address] [address] Rigo Julio Triglyceride [Mass/Vol] 150 mg/dL Normal <=150 [facility] Comment on above: Performed By: #### H FPF #### [facility] [address] [address] [address] Rigo Julio TSH 1.255 uIU/mL Normal 0.358-3.740 [facility] Comment on above: Performed By: #### H FPF #### [facility] [address] [address] [address] Rigo Julio Urea nitrogen [Mass/Vol] 11.0 mg/dL Normal 7.0-18.0 [facility] Comment on above: Performed By: #### H FPF #### [facility] [address] [address] [address] Rigo Julio Urea nitrogen/Creatinine [Mass ratio] 13.9 mg/mg Normal [facility] Comment on above: Performed By: #### H FPF #### [facility] [address] [address] [address] Rigo Julio VLDL CALC 30.0 mg/dL Normal [facility] Comment on above: Performed By: #### H FPF #### [facility] [address] [address] [address] Rigo Julio LIPID PROFILEon 10-06-2022 CHOL-HDL RATIO NORM SEE BELOW Normal [facility] Comment on above: Result Comment: 3.3 - 4.4 LOW RISK 4.4 - 7.1 AVERAGE RISK 7.1 - 11.0 MODERATE RISK >11.0 HIGH RISK Performed By: #### L IPID, CMP #### [facility] [address] [address] [address] Rigo Julio Cholesterol [Mass/Vol] 131 mg/dL Normal <=200 [facility] Comment on above: Performed By: #### L IPID, CMP #### [facility] [address] [address] [address] Rigo Julio Cholesterol in HDL [Mass/Vol] 56 mg/dL Normal 40-60 [facility] Comment on above: Performed By: #### L IPID, CMP #### [facility] [address] [address] [address] Rigo Julio Cholesterol in LDL [Mass/Vol] 43.8 mg/dL Normal [facility] Comment on above: Performed By: #### L IPID, CMP #### [facility] [address] [place] [address] Dr. Rigo Julio Cholesterol.total/Cho lesterol in HDL [Mass ratio] 2.3 {ratio} Normal [facility] Comment on above: Performed By: #### L IPID, CMP #### [facility] [address] [address] [address] Rigo Julio HDL NORMAL > or = 60 mg/dl - LO W CARDIOVASCULAR RISK <40 mg/dl - HIGH CARDIOVASCULAR RISK Normal [facility] Comment on above: Performed By: #### L IPID, CMP #### [facility] [address] [address] [address] Rigo Julio LDL CALC NORMAL SEE BELOW Normal [facility] Comment on above: Result Comment: <100 mg/dl OPTIMAL 100 - 129 mg/dl NEAR OR ABOVE OPTIMAL 130 - 159 mg/dl BORDERLINE HIGH 160 - 189 mg/dl HIGH >190 mg/dl VERY HIGH Performed By: #### L IPID, CMP #### [facility] [address] [address] [address] Rigo Julio Triglyceride [Mass/Vol] 156 mg/dL Critically high <=150 [facility] Comment on above: Performed By: #### L IPID, CMP #### [facility] [address] [address] [address] Rigo Julio VLDL CALC 31.2 mg/dL Normal [facility] Comment on above: Performed By: #### L IPID, CMP #### [facility] [address] [place] [address] Dr. Rigo Julio PROF 14(COMP METB)on 023 Albumin [Mass/Vol] 3.7 g/dL Normal 3.4-5.0 [facility] Comment on above: Performed By: #### L IPID, CMP #### [facility] [address] [place] [address] Dr. Rigo Julio Albumin/Globulin [Mass ratio] 1.1 {ratio} Normal [facility] Comment on above: Performed By: #### L IPID, CMP #### [facility] [address] [place] [address] Dr. Rigo Julio ALP [Catalytic activity/Vol] 80 U/L Normal 46-116 [facility] Comment on above: Performed By: #### L IPID, CMP #### [facility] [address] [place] [address] Dr. Rigo Julio ALT [Catalytic activity/Vol] 16 U/L Normal 14-59 [facility] Comment on above: Performed By: #### L IPID, CMP #### [facility] [address] [place] [address] Dr. Rigo Julio Anion gap [Moles/Vol] 11.7 mmol/L Normal [facility] Comment on above: Performed By: #### L IPID, CMP #### [facility] [address] [place] [address] Dr. Rigo Julio AST [Catalytic activity/Vol] 16 U/L Normal 15-37 [facility] Comment on above: Performed By: #### L IPID, CMP #### [facility] [address] [place] [address] Dr. Rigo Julio Bilirubin [Mass/Vol] 0.3 mg/dL Normal 0.2-1.0 [facility] Comment on above: Performed By: #### L IPID, CMP #### [facility] [address] [address] [address] Rigo Julio Calcium [Mass/Vol] 9.3 mg/dL Normal 8.5-10.1 [facility] Comment on above: Performed By: #### L IPID, CMP #### [facility] [address] [address] [address] Rigo Julio Chloride [Moles/Vol] 104 mmol/L Normal 98-107 [facility] Comment on above: Performed By: #### L IPID, CMP #### [facility] [address] [address] [address] Rigo Julio CO2 [Moles/Vol] 30.1 mmol/L Normal 21.0-32.0 [facility] Comment on above: Performed By: #### L IPID, CMP #### [facility] [address] [place] [address] Dr. Rigo Julio Creatinine [Mass/Vol] 0.74 mg/dL Normal 0.55-1.02 [facility] Comment on above: Performed By: #### L IPID, CMP #### [facility] [address] [place] [address] Dr. Rigo Julio EGFR-AF TRISTANIAN >60 Normal >=60 [facility] Comment on above: Performed By: #### L IPID, CMP #### [facility] [address] [place] [address] Dr. Rigo Julio EGFR-NON AF TRISTANIAN >60 Normal >=60 [facility] Comment on above: Performed By: #### L IPID, CMP #### [facility] [address] [place] [address] Dr. Rigo Julio Globulin (S) [Mass/Vol] 3.5 g/dL Normal [facility] Comment on above: Performed By: #### L IPID, CMP #### [facility] [address] [place] [address] Dr. Rigo Julio Glucose [Mass/Vol] 105 mg/dL Normal 74-106 [facility] Comment on above: Performed By: #### L IPID, CMP #### [facility] [address] [address] [address] Rigo Julio Potassium [Moles/Vol] 4.8 mmol/L Normal 3.5-5.1 [facility] Comment on above: Performed By: #### L IPID, CMP #### [facility] [address] [address] [address] Rigo Julio Protein [Mass/Vol] 7.2 g/dL Normal 6.4-8.2 [facility] Comment on above: Performed By: #### L IPID, CMP #### [facility] [address] [address] [address] Rigo Julio Sodium [Moles/Vol] 141 mmol/L Normal 136-145 [facility] Comment on above: Performed By: #### L IPID, CMP #### [facility] [address] [place] [address] Dr. Rigo Julio Urea nitrogen [Mass/Vol] 13.0 mg/dL Normal 7.0-18.0 [facility] Comment on above: Performed By: #### L IPID, CMP #### [facility] [address] [place] [address] Dr. Rigo Julio Urea nitrogen/Creatinine [Mass ratio] 17.6 mg/mg Normal [facility] Comment on above: Performed By: #### L IPID, CMP #### [facility] [address] [place] [address] Dr. Rigo Julio LIPID PROFILEon 04-14-2022 CHOL-HDL RATIO NORM SEE BELOW Normal [facility] Comment on above: Result Comment: 3.3 - 4.4 LOW RISK 4.4 - 7.1 AVERAGE RISK 7.1 - 11.0 MODERATE RISK >11.0 HIGH RISK Performed By: #### L IPID, LIVER #### [facility] [address] [place] [address] Dr. Rigo Julio Cholesterol [Mass/Vol] 122 mg/dL Normal <=200 [facility] Comment on above: Performed By: #### L IPID, LIVER #### [facility] [address] [place] [address] Dr. Rigo Julio Cholesterol in HDL [Mass/Vol] 58 mg/dL Normal 40-60 [facility] Comment on above: Performed By: #### L IPID, LIVER #### [facility] [address] [address] [address] Rigo Julio Cholesterol in LDL [Mass/Vol] 33.4 mg/dL Normal [facility] Comment on above: Performed By: #### L IPID, LIVER #### [facility] [address] [address] [address] Rigo Julio Cholesterol.total/Cho lesterol in HDL [Mass ratio] 2.1 {ratio} Normal [facility] Comment on above: Performed By: #### L IPID, LIVER #### [facility] [address] [address] [address] Rigo Julio HDL NORMAL > or = 60 mg/dl - LO W CARDIOVASCULAR RISK <40 mg/dl - HIGH CARDIOVASCULAR RISK Normal [facility] Comment on above: Performed By: #### L IPID, LIVER #### [facility] [address] [place] [address] Dr. Rigo Julio LDL CALC NORMAL SEE BELOW Normal [facility] Comment on above: Result Comment: <100 mg/dl OPTIMAL 100 - 129 mg/dl NEAR OR ABOVE OPTIMAL 130 - 159 mg/dl BORDERLINE HIGH 160 - 189 mg/dl HIGH >190 mg/dl VERY HIGH Performed By: #### L IPID, LIVER #### [facility] [address] [address] [address] Rigo Julio Triglyceride [Mass/Vol] 153 mg/dL Critically high <=150 [facility] Comment on above: Performed By: #### L IPID, LIVER #### [facility] [address] [address] [address] Rigo Julio VLDL CALC 30.6 mg/dL Normal [facility] Comment on above: Performed By: #### L IPID, LIVER #### [facility] [address] [address] [address] Rigo Julio LIVER PROFILEon 04-14-2022 Albumin [Mass/Vol] 3.9 g/dL Normal 3.4-5.0 [facility] Comment on above: Performed By: #### L IPID, LIVER #### [facility] [address] [address] [address] Rigo Julio Albumin/Globulin [Mass ratio] 1.1 {ratio} Normal [facility] Comment on above: Performed By: #### L IPID, LIVER #### [facility] [address] [address] [address] Rigo Julio ALP [Catalytic activity/Vol] 76 U/L Normal 46-116 [facility] Comment on above: Performed By: #### L IPID, LIVER #### [facility] [address] [address] [address] Rigo Julio ALT [Catalytic activity/Vol] 21 U/L Normal 14-59 [facility] Comment on above: Performed By: #### L IPID, LIVER #### [facility] [address] [address] [address] Rigo Julio AST [Catalytic activity/Vol] 16 U/L Normal 15-37 [facility] Comment on above: Performed By: #### L IPID, LIVER #### [facility] [address] [address] [address] Rigo Julio BILI, CONJUGATED 0.1 mg/dL Normal 0.0-0.2 [facility] Comment on above: Performed By: #### L IPID, LIVER #### [facility] [address] [address] [address] Rigo Julio Bilirubin [Mass/Vol] 0.4 mg/dL Normal 0.2-1.0 [facility] Comment on above: Performed By: #### L IPID, LIVER #### [facility] [address] [address] [address] Rigo Julio Globulin (S) [Mass/Vol] 3.6 g/dL Normal [facility] Comment on above: Performed By: #### L IPID, LIVER #### [facility] [address] [address] [address] Rigo Julio Protein [Mass/Vol] 7.5 g/dL Normal 6.4-8.2 [facility] Comment on above: Performed By: #### L IPID, LIVER #### [facility] [address] [place] [address] Dr. Rigo Sy 03-10-2022 L - -------- Specimen: [id number] Received: 03/10/22 Status: CINDY Veronica Num: [id number] Spec Type: Surgical Subm Dr: Travis Richter MD Tissues: A Esophagus Biopsy (ESOPHAGUS BX) Procedures: HE Stain/2, Gross/Micro L4 -------- Patient Age/Sex Location Account Attending Physician -------- Sj Brewster 71/Gabriela [id number] Travis Richter MD -------- SPEC NUM: [id number] RECD: 03/10/22 STATUS: CINDY MARTIN NUM: [id number] ALEE: 03/10/22 DR: Travis Richter MD ENTERED: 03/10/22 UNIVERSITY [...] support the above pathologic diagnosis CPT Codes 40105 -------- -------- Specimen: [id number] Received: 03/10/22 Status: CINDY Martin Num: [id number] Spec Type: Surgical Subm Dr: Travis Richter MD Tissues: A Esophagus Biopsy (ESOPHAGUS BX) Procedures: HE Stain/2, Gross/Micro L4 -------- Patient: Sj Brewster [id number] (Continued) -------- Signed (signature on file) Nadege Cardenas MD 03/11/22 1254 Normal [facility] SARS-CoV-2 (COVID-19) RNA EDA+probe Ql (Unsp spec) Negative Normal Negative [facility] Comment on above: Order Comment: Healt hcare Worker?: N Result Comment: Testing for SARS-CoV-2 by RT-PCR This test was developed and its performance characteristics determined by [employer] and validated at the [facility]. This test has not been FDA cleared [...] is terminated or revoked sooner. PERFORMED BY: [place] [address] PATHOLOG[employer] SHARIF ARNOLD M.D. Performed By: #### C OVID 19 [facility] #### [address] PROF 14(COMP METB)on 022 Albumin [Mass/Vol] 3.7 g/dL Normal 3.4-5.0 [facility] Comment on above: Performed By: #### C MP #### [facility] [address] [place] [address] Dr. Rigo Julio Albumin/Globulin [Mass ratio] 1.0 {ratio} Normal [facility] Comment on above: Performed By: #### C MP #### [facility] [address] [place] [address] Dr. Rigo Julio ALP [Catalytic activity/Vol] 79 U/L Normal 46-116 [facility] Comment on above: Performed By: #### C MP #### [facility] [address] [place] [address] Dr. Rigo Julio ALT [Catalytic activity/Vol] 22 U/L Normal 14-59 [facility] Comment on above: Performed By: #### C MP #### [facility] [address] [place] [address] Dr. Rigo Julio Anion gap [Moles/Vol] 10.3 mmol/L Normal [facility] Comment on above: Performed By: #### C MP #### [facility] [address] [address] [address] Rigo Julio AST [Catalytic activity/Vol] 16 U/L Normal 15-37 [facility] Comment on above: Performed By: #### C MP #### [facility] [address] [place] [address] Dr. Rigo Julio Bilirubin [Mass/Vol] 0.3 mg/dL Normal 0.2-1.0 [facility] Comment on above: Performed By: #### C MP #### [facility] [address] [place] [address] Dr. Rigo Julio Calcium [Mass/Vol] 9.2 mg/dL Normal 8.5-10.1 [facility] Comment on above: Performed By: #### C MP #### [facility] [address] [place] [address] Dr. Rigo Julio Chloride [Moles/Vol] 104 mmol/L Normal 98-107 [facility] Comment on above: Performed By: #### C MP #### [facility] [address] [place] [address] Dr. Rigo Julio CO2 [Moles/Vol] 29.7 mmol/L Normal 21.0-32.0 [facility] Comment on above: Performed By: #### C MP #### [facility] [address] [place] [address] Dr. Rigo Julio Creatinine [Mass/Vol] 0.80 mg/dL Normal 0.55-1.02 [facility] Comment on above: Performed By: #### C MP #### [facility] [address] [place] [address] Dr. Rigo Julio EGFR-AF TRISTANIAN >60 Normal >=60 [facility] Comment on above: Performed By: #### C MP #### [facility] [address] [place] [address] Dr. Rigo Julio EGFR-NON AF TRISTANIAN >60 Normal >=60 [facility] Comment on above: Performed By: #### C MP #### [facility] [address] [place] [address] Dr. Rigo Julio Globulin (S) [Mass/Vol] 3.8 g/dL Normal [facility] Comment on above: Performed By: #### C MP #### [facility] [address] [place] [address] Dr. Rigo Julio Glucose [Mass/Vol] 93 mg/dL Normal 74-106 [facility] Comment on above: Performed By: #### C MP #### [facility] [address] [place] [address] Dr. Rigo Julio Potassium [Moles/Vol] 5.0 mmol/L Normal 3.5-5.1 [facility] Comment on above: Performed By: #### C MP #### [facility] [address] [place] [address] Dr. Rigo Julio Protein [Mass/Vol] 7.5 g/dL Normal 6.4-8.2 [facility] Comment on above: Performed By: #### C MP #### [facility] [address] [place] [address] Dr. Rigo Julio Sodium [Moles/Vol] 139 mmol/L Normal 136-145 [facility] Comment on above: Performed By: #### C MP #### [facility] [address] [place] [address] Dr. Rigo Julio Urea nitrogen [Mass/Vol] 11.0 mg/dL Normal 7.0-18.0 [facility] Comment on above: Performed By: #### C MP #### [facility] [address] [place] [address] Dr. Rigo Julio Urea nitrogen/Creatinine [Mass ratio] 13.8 mg/mg Normal [facility] Comment on above: Performed By: #### C MP #### [facility] [address] [place] [address] Dr. Rigo Julio [facility] CBC AUTO DIFFon 11-27-2021 BASO # 0.1 103/ul Normal 0.0-0.1 [facility] Comment on above: Performed By: #### H FPFCBC #### [facility] [address] [place] [address] Dr. Rigo Julio Basophils/100 WBC (Bld) 0.9 % Normal 0.2-2.0 [facility] Comment on above: Performed By: #### H FPFCBC #### [facility] [address] [place] [address] Dr. Rigo Julio EO # 0.2 103/ul Normal 0.0-0.7 [facility] Comment on above: Performed By: #### H FPFCBC #### [facility] [address] [place] [address] Dr. Rigo Julio Eosinophils/100 WBC (Bld) 2.7 % Normal 0.9-7.0 [facility] Comment on above: Performed By: #### H FPFCBC #### [facility] [address] [place] [address] Dr. Rigo Julio Erythrocyte distribution width (RBC) [Ratio] 13.5 % Normal 11.0-15.0 [facility] Comment on above: Performed By: #### H FPFCBC #### [facility] [address] [place] [address] Dr. Rigo Julio Hematocrit (Bld) [Volume fraction] 38.8 % Normal 36.0-48.0 [facility] Comment on above: Performed By: #### H FPFCBC #### [facility] [address] [place] [address] Dr. Rigo Julio Hemoglobin (Bld) [Mass/Vol] 12.6 g/dL Normal 12.0-16.0 [facility] Comment on above: Performed By: #### H FPFCBC #### [facility] [address] [place] [address] Dr. Rigo Julio IG # 0.02 10e3/ul Normal 0.00-0.03 [facility] Comment on above: Performed By: #### H FPFCBC #### [facility] [address] [place] [address] Dr. Rigo Julio IG % 0.4 % Normal 0.0-0.5 [facility] Comment on above: Performed By: #### H FPFCBC #### [facility] [address] [place] [address] Dr. Rigo Julio LYMPH # 1.3 103/ul Normal 1.2-3.8 [facility] Comment on above: Performed By: #### H FPFCBC #### [facility] [address] [place] [address] Dr. Rigo Julio Lymphocytes/100 WBC (Bld) 22.8 % Normal 20.5-60.0 [facility] Comment on above: Performed By: #### H FPFCBC #### [facility] [address] [place] [address] Dr. Rigo uJlio MCH (RBC) [Entitic mass] 30.5 pg Normal 26.7-34.0 [facility] Comment on above: Performed By: #### H FPFCBC #### [facility] [address] [place] [address] Dr. Rigo Julio MCHC (RBC) [Mass/Vol] 32.5 g/dL Normal 29.9-35.2 [facility] Comment on above: Performed By: #### H FPFCBC #### [facility] [address] [place] [address] Dr. Rigo Julio MCV (RBC) [Entitic vol] 93.9 fL Normal 81.0-99.0 [facility] Comment on above: Performed By: #### H FPFCBC #### [facility] [address] [place] [address] Dr. Rigo Julio MONO # 0.4 103/ul Normal 0.3-0.8 [facility] Comment on above: Performed By: #### H FPFCBC #### [facility] [address] [place] [address] Dr. Rigo Julio Monocytes/100 WBC (Bld) 7.3 % Normal 1.7-12.0 [facility] Comment on above: Performed By: #### H FPFCBC #### [facility] [address] [place] [address] Dr. Rigo Julio NEUT # 3.6 103/ul Normal 1.4-6.5 [facility] Comment on above: Performed By: #### H FPFCBC #### [facility] [address] [place] [address] Dr. Rigo Julio Neutrophils/100 WBC (Bld) 65.9 % Normal 43.0-75.0 [facility] Comment on above: Performed By: #### H FPFCBC #### [facility] [address] [place] [address] Dr. Rigo Julio Platelet mean volume (Bld) [Entitic vol] 9.7 fL Normal 9.5-13.5 [facility] Comment on above: Performed By: #### H FPFCBC #### [facility] [address] [place] [address] Dr. Rigo Julio PLT 333 103/ul Normal 150-450 [facility] Comment on above: Performed By: #### H FPFCBC #### [facility] [address] [address] [address] Rigo Julio RBC 4.13 106/ul Critically low 4.20-5.40 [facility] Comment on above: Performed By: #### H FPFCBC #### [facility] [address] [address] [address] Rigo Julio WBC 5.5 103/ul Normal 4.0-11.0 [facility] Comment on above: Performed By: #### H FPFCBC #### [facility] [address] [address] [address] Rigo Julio [facility] GLYCOHEMOGLOBIN A1Con 11-27-2021 Glucose [Mass/Vol] 123 mg/dL Normal [facility] Comment on above: Performed By: #### H FPFA1C #### [facility] [address] [address] [address] Rigo Julio HbA1c (Bld) [Mass fraction] 5.9 % Normal <=6.0 [facility] Comment on above: Performed By: #### H FPFA1C #### [facility] [address] [address] [address] [facility] Albumin [Mass/Vol] 4.2 g/dL Normal 3.5-5.0 [facility] Comment on above: Performed By: #### L IPID, CMP #### [facility] [address] [address] [address] Rigo Julio Albumin/Globulin [Mass ratio] 1.2 {ratio} Normal [facility] Comment on above: Performed By: #### L IPID, CMP #### [facility] [address] [address] [address] Rigo Julio ALP [Catalytic activity/Vol] 81 U/L Normal 38-126 [facility] Comment on above: Performed By: #### L IPID, CMP #### [facility] [address] [address] [address] Rigo Julio ALT [Catalytic activity/Vol] 23 U/L Normal 9-52 [facility] Comment on above: Performed By: #### L IPID, CMP #### [facility] [address] [address] [address] Rigo Julio AST [Catalytic activity/Vol] 18 U/L Normal 14-36 [facility] Comment on above: Performed By: #### L IPID, CMP #### [facility] [address] [address] [address] Rigo Julio Bilirubin [Mass/Vol] 0.3 mg/dL Normal 0.2-1.3 [facility] Comment on above: Performed By: #### L IPID, CMP #### [facility] [address] [address] [address] Rigo Julio Calcium [Mass/Vol] 9.2 mg/dL Normal 8.4-10.2 [facility] Comment on above: Performed By: #### L IPID, CMP #### [facility] [address] [address] [address] Rigo Julio Chloride [Moles/Vol] 102 mmol/L Normal 98-107 [facility] Comment on above: Performed By: #### L IPID, CMP #### [facility] [address] [place] [address] Dr. Rigo Julio CHOL-HDL RATIO NORM SEE BELOW Normal [facility] Comment on above: Result Comment: 3.3 - 4.4 LOW RISK 4.4 - 7.1 AVERAGE RISK 7.1 - 11.0 MODERATE RISK >11.0 HIGH RISK Performed By: #### L IPID, CMP #### [facility] [address] [address] [address] Rigo Julio Cholesterol [Mass/Vol] 220 mg/dL Critically high <=200 [facility] Comment on above: Performed By: #### L IPID, CMP #### [facility] [address] [address] [address] Rigo Julio Cholesterol in HDL [Mass/Vol] 54 mg/dL Normal [facility] Comment on above: Performed By: #### L IPID, CMP #### [facility] [address] [address] [address] Rigo Julio Cholesterol in LDL [Mass/Vol] 141.6 mg/dL Normal [facility] Comment on above: Performed By: #### L IPID, CMP #### [facility] [address] [place] [address] Dr. Rigo Julio Cholesterol.total/Cho lesterol in HDL [Mass ratio] 4.1 {ratio} Normal [facility] Comment on above: Performed By: #### L IPID, CMP #### [facility] [address] [place] [address] Dr. Rigo Julio CO2 [Moles/Vol] 28.4 mmol/L Normal 22.0-30.0 [facility] Comment on above: Performed By: #### L IPID, CMP #### [facility] [address] [place] [address] Dr. Rigo Julio Creatinine [Mass/Vol] 0.84 mg/dL Normal 0.52-1.04 [facility] Comment on above: Performed By: #### L IPID, CMP #### [facility] [address] [place] [address] Dr. Rigo Julio Globulin (S) [Mass/Vol] 3.6 g/dL Normal [facility] Comment on above: Performed By: #### L IPID, CMP #### [facility] [address] [place] [address] Dr. Rigo Julio Glucose [Mass/Vol] 103 mg/dL Normal 74-106 [facility] Comment on above: Performed By: #### L IPID, CMP #### [facility] [address] [place] [address] Dr. Rigo Julio HDL NORMAL > or = 60 mg/dl - LO W CARDIOVASCULAR RISK <40 mg/dl - HIGH CARDIOVASCULAR RISK Normal [facility] Comment on above: Performed By: #### L IPID, CMP #### [facility] [address] [place] [address] Dr. Rigo Julio LDL CALC NORMAL SEE BELOW Normal [facility] Comment on above: Result Comment: <100 mg/dl OPTIMAL 100 - 129 mg/dl NEAR OR ABOVE OPTIMAL 130 - 159 mg/dl BORDERLINE HIGH 160 - 189 mg/dl HIGH >190 mg/dl VERY HIGH Performed By: #### L IPID, CMP #### [facility] [address] [address] [address] Rigo Julio Potassium [Moles/Vol] 5.6 mmol/L Critically high 3.4-5.0 [facility] Comment on above: Performed By: #### L IPID, CMP #### [facility] [address] [address] [address] Rigo Julio Protein [Mass/Vol] 7.8 g/dL Normal 6.1-8.2 [facility] Comment on above: Performed By: #### L IPID, CMP #### [facility] [address] [address] [address] Rigo Julio Sodium [Moles/Vol] 138 mmol/L Normal 137-145 [facility] Comment on above: Performed By: #### L IPID, CMP #### [facility] [address] [address] [address] Rigo Julio Triglyceride [Mass/Vol] 122 mg/dL Normal <=150 [facility] Comment on above: Performed By: #### L IPID, CMP #### [facility] [address] [address] [address] Rigo Julio TSH 1.542 uIU/mL Normal 0.470-4.680 [facility] Comment on above: Performed By: #### L IPID, CMP #### [facility] [address] [address] [address] Rigo Julio Urea nitrogen [Mass/Vol] 10.0 mg/dL Normal 7.0-17.0 [facility] Comment on above: Performed By: #### L IPID, CMP #### [facility] [address] [address] [address] Rigo Julio Urea nitrogen/Creatinine [Mass ratio] 11.9 mg/mg Normal [facility] Comment on above: Performed By: #### L IPID, CMP #### [facility] [address] [address] [address] Rigo Julio VLDL CALC 24.4 mg/dL Normal [facility] Comment on above: Performed By: #### L IPID, CMP #### [facility] [address] [address] [address] Rigo Julio POC GLUCOSE LABon 04-06-2021 Glucose [Mass/Vol] 112 mg/dL High 70-100 [facility] Comment on above: Performed By: #### [id number] #### [facility] [address] [place] [address], [place] Glucose [Mass/Vol] 109 mg/dL High 70-100 [facility] Comment on above: Performed By: #### [id number] #### [facility] [address] [place] [address], [place] BASIC METABOLIC PANELon 03-20 Calcium [Mass/Vol] 8.3 mg/dL Low 8.6-10.3 [facility] Comment on above: Order Comment: No: D o not add to previous draw Performed By: #### [id number] #### [facility] [address] [place] [address], [place] Chloride [Moles/Vol] 96 mmol/L Low 98-107 [facility] Comment on above: Order Comment: No: D o not add to previous draw Performed By: #### [id number] #### [facility] [address] [place] [address], [place] CO2 [Moles/Vol] 29 mmol/L Normal 21-31 [facility] Comment on above: Order Comment: No: D o not add to previous draw Performed By: #### [id number] #### [facility] [address] [place] [address], [place] Creatinine [Mass/Vol] 0.60 mg/dL Normal 0.60-1.20 [facility] Comment on above: Order Comment: No: D o not add to previous draw Performed By: #### [id number] #### [facility] [address] [place] [address], [place] GFR/1.73 sq M.predicted among blacks MDRD (S/P/Bld) [Vol rate/Area] mL/min/{1.73_m2} Normal >60 [facility] Comment on above: Order Comment: No: D o not add to previous draw Performed By: #### 8 [id number] #### [facility] [address] [place] [address], [place] GFR/1.73 sq M.predicted among non-blacks MDRD (S/P/Bld) [Vol rate/Area] mL/min/{1.73_m2} Normal >60 [facility] Comment on above: Order Comment: No: D o not add to previous draw Performed By: #### 8 [id number] #### [facility] [address] [place] [address], [place] Glucose [Mass/Vol] 100 mg/dL Normal 70-100 [facility] Comment on above: Order Comment: No: D o not add to previous draw Performed By: #### 8 [id number] #### [facility] [address] [place] [address], [place] Potassium [Moles/Vol] 4.2 mmol/L Normal 3.5-5.1 [facility] Comment on above: Order Comment: No: D o not add to previous draw Performed By: #### 8 [id number] #### [facility] [address] [place] [address], [place] Sodium [Moles/Vol] 132 mmol/L Low 136-145 [facility] Comment on above: Order Comment: No: D o not add to previous draw Performed By: #### 8 [id number] #### [facility] [address] [place] [address], [facility] Urea nitrogen [Mass/Vol] 13 mg/dL Normal 7-25 [facility] Comment on above: Order Comment: No: D o not add to previous draw Performed By: #### 8 [id number] #### [facility] [address] [place] [address], [facility] CBC COMPLETE BLOOD COUNTon 0 - Erythrocyte distribution width (RBC) [Ratio] 14.6 % Normal 11.5-15.0 [facility] Comment on above: Order Comment: No: D o not add to previous draw Performed By: #### 8 [id number] #### [facility] [address] [place] [address], [facility] Hematocrit (Bld) [Volume fraction] 30.4 % Low 36.0-45.0 [facility] Comment on above: Order Comment: No: D o not add to previous draw Performed By: #### 8 [id number] #### [facility] [address] [place] [address], [facility] Hemoglobin (Bld) [Mass/Vol] 10.2 g/dL Low 12.0-15.0 [facility] Comment on above: Order Comment: No: D o not add to previous draw Performed By: #### 8 [id number] #### [facility] [address] [place] [address], [facility] MCH (RBC) [Entitic mass] 30.5 pg Normal 27.0-33.0 [facility] Comment on above: Order Comment: No: D o not add to previous draw Performed By: #### 8 [id number] #### [facility] [address] [place] [address], [facility] MCHC (RBC) [Mass/Vol] 33.6 g/dL Normal 32.0-35.0 [facility] Comment on above: Order Comment: No: D o not add to previous draw Performed By: #### 8 [id number] #### [facility] [address] [place] [address], [facility] MCV (RBC) [Entitic vol] 91.0 fL Normal 82.0-98.0 [facility] Comment on above: Order Comment: No: D o not add to previous draw Performed By: #### 8 [id number] #### [facility] [address] [place] [id number], [facility] Nucleated RBC/100 WBC (Bld) [Ratio] 0 % Normal 0-0 [facility] Comment on above: Order Comment: No: D o not add to previous draw Performed By: #### 8 [id number] #### [facility] [address] [place] [id number], [facility] PLAT CNT 124 10*3/uL Low 150-400 [facility] Comment on above: Order Comment: No: D o not add to previous draw Performed By: #### 8 [id number] #### [facility] [address] [place] [id number], [facility] RBC (Bld) [#/Vol] 3.34 10*6/uL Low 3.80-5.00 [facility] Comment on above: Order Comment: No: D o not add to previous draw Performed By: #### 8 [id number] #### [facility] [address] [place] [address], [facility] WBC (Bld) [#/Vol] 13.12 10*3/uL High 4.00-10.60 [facility] Comment on above: Order Comment: No: D o not add to previous draw Performed By: #### 8 [id number] #### [facility] [address] [place] [id number], [facility] MAGNESIUM BLOODon 04-05-2021 Magnesium [Mass/Vol] 1.8 mg/dL Low 1.9-2.7 [facility] Comment on above: Order Comment: No: D o not add to previous draw Performed By: #### 8 [id number] #### [facility] [address] [place] [address], [place] POC GLUCOSE LABon 04-05-2021 Glucose [Mass/Vol] 144 mg/dL High 70-100 [facility] Comment on above: Performed By: #### 3 1595 #### [facility] [address] [address], [place] Glucose [Mass/Vol] 117 mg/dL High 70-100 [facility] Comment on above: Performed By: #### 5 0103 #### [facility] [address] [place] [address], [place] Glucose [Mass/Vol] 125 mg/dL High 70-100 [facility] Comment on above: Performed By: #### 5 0103 #### [facility] [address] [facility] [place] [address], [place] Glucose [Mass/Vol] 108 mg/dL High 70-100 [facility] Comment on above: Performed By: #### 5 0103 #### [facility] [address] [facility] [place] [address], [place] Glucose [Mass/Vol] 116 mg/dL High 70-100 [facility] Comment on above: Performed By: #### 5 0103 #### [facility] [address] [facility] [place] [place] [address], [facility] PORTABLE CHEST 1 VIEWon 03-20 PORTABLE CHEST [address] [facility] Department of Radiology [address] [place] [id number] Patient Name: SJ BREWSTER : 1950 Sex: F Age: Race: White Pt. Location: [place] [address] Patient Status: I Ordered Date: 04/05/2021 5:00:00 [...] therapy Electronically signed: Pam Ennis. Transcribed by: [email or web address], User Resident: Electronically Signed by: PAM ENNIS @ 04/05/2021 08:58 AM Normal [facility] Comment on above: Order Comment: evalu ate for Atelectasis BASIC METABOLIC PANELon 03-20 Calcium [Mass/Vol] 8.6 mg/dL Normal 8.6-10.3 [facility] Comment on above: Order Comment: No: D o not add to previous draw Performed By: #### 3 0965 #### [facility] [address] [place] [address], [place] Chloride [Moles/Vol] 99 mmol/L Normal 98-107 [facility] Comment on above: Order Comment: No: D o not add to previous draw Performed By: #### 3 0965 #### [facility] [address] [place] [address], [place] CO2 [Moles/Vol] 25 mmol/L Normal 21-31 [facility] Comment on above: Order Comment: No: D o not add to previous draw Performed By: #### 3 0965 #### [facility] [address] [place] [address], [place] Creatinine [Mass/Vol] 0.60 mg/dL Normal 0.60-1.20 [facility] Comment on above: Order Comment: No: D o not add to previous draw Performed By: #### 3 0965 #### [facility] [address] [place] [address], [place] GFR/1.73 sq M.predicted among blacks MDRD (S/P/Bld) [Vol rate/Area] mL/min/{1.73_m2} Normal >60 [facility] Comment on above: Order Comment: No: D o not add to previous draw Performed By: #### 3 0965 #### [facility] [address] [place] [address], [place] GFR/1.73 sq M.predicted among non-blacks MDRD (S/P/Bld) [Vol rate/Area] mL/min/{1.73_m2} Normal >60 [facility] Comment on above: Order Comment: No: D o not add to previous draw Performed By: #### 3 0965 #### [facility] [address] [place] [address], [place] Glucose [Mass/Vol] 111 mg/dL High 70-100 [facility] Comment on above: Order Comment: No: D o not add to previous draw Performed By: #### 3 0965 #### [facility] [address] [place] [address], [facility] Potassium [Moles/Vol] 4.0 mmol/L Normal 3.5-5.1 [facility] Comment on above: Order Comment: No: D o not add to previous draw Performed By: #### 3 0965 #### [facility] [address] [place] [address], [place] Sodium [Moles/Vol] 130 mmol/L Low 136-145 [facility] Comment on above: Order Comment: No: D o not add to previous draw Performed By: #### 3 0965 #### [facility] [address] [place] [address], [facility] Urea nitrogen [Mass/Vol] 15 mg/dL Normal 7-25 [facility] Comment on above: Order Comment: No: D o not add to previous draw Performed By: #### 3 0965 #### [facility] [address] [place] [address], [facility] CBC COMPLETE BLOOD COUNTon 0 - Erythrocyte distribution width (RBC) [Ratio] 15.7 % High 11.5-15.0 [facility] Comment on above: Order Comment: No: D o not add to previous draw Performed By: #### 8 [id number] #### [facility] [address] [place] [address], [facility] Hematocrit (Bld) [Volume fraction] 30.1 % Low 36.0-45.0 [facility] Comment on above: Order Comment: No: D o not add to previous draw Performed By: #### 8 5499 #### [facility] [address] [place] [address], [facility] Hemoglobin (Bld) [Mass/Vol] 10.0 g/dL Low 12.0-15.0 [facility] Comment on above: Order Comment: No: D o not add to previous draw Performed By: #### 8 5499 #### [facility] [address] [place] [address], [facility] IMM PLATELET FRAC 5.8 % Normal 0.8-6.[address] [facility] Comment on above: Order Comment: No: D o not add to previous draw Performed By: #### 8 5499 #### [facility] [address] [place] [address], [facility] MCH (RBC) [Entitic mass] 29.9 pg Normal 27.0-33.0 [facility] Comment on above: Order Comment: No: D o not add to previous draw Performed By: #### 8 [id number] #### [facility] [address] [facility] [place] [address], [facility] MCHC (RBC) [Mass/Vol] 33.2 g/dL Normal 32.0-35.0 [facility] Comment on above: Order Comment: No: D o not add to previous draw Performed By: #### 8 [id number] #### [facility] [address] [facility] [place] [address], [facility] MCV (RBC) [Entitic vol] 89.9 fL Normal 82.0-98.0 [facility] Comment on above: Order Comment: No: D o not add to previous draw Performed By: #### 8 5499 #### [facility] [address] [facility]. [address] Nucleated RBC/100 WBC (Bld) [Ratio] 0 % Normal 0-0 [facility] Comment on above: Order Comment: No: D o not add to previous draw Performed By: #### 8 [id number] #### [facility] [address] [facility] [place] [address], [facility] PLAT CNT 119 10*3/uL Low 150-400 [facility] Comment on above: Order Comment: No: D o not add to previous draw Performed By: #### 8 5499 #### [facility] [address] [place] [address], [place] RBC (Bld) [#/Vol] 3.35 10*6/uL Low 3.80-5.00 [facility] Comment on above: Order Comment: No: D o not add to previous draw Performed By: #### 8 5499 #### [facility] [address] [place] [address], [place] WBC (Bld) [#/Vol] 16.59 10*3/uL High 4.00-10.60 [facility] Comment on above: Order Comment: No: D o not add to previous draw Performed By: #### 8 5499 #### [facility] [address] [place] [address], [place] MAGNESIUM BLOODon 04-04-2021 Magnesium [Mass/Vol] 1.7 mg/dL Low 1.9-2.7 [facility] Comment on above: Order Comment: No: D o not add to previous draw Performed By: #### 3 0965 #### [facility] [address] [place] [address], [place] POC GLUCOSE LABon 04-04-2021 Glucose [Mass/Vol] 183 mg/dL High 70-100 [facility] Comment on above: Performed By: #### 8 [id number] #### [facility] [address] [place] [address], [place] Glucose [Mass/Vol] 132 mg/dL High 70-100 [facility] Comment on above: Performed By: #### 3 1595 #### [facility] [address] [place] [address], [place] Glucose [Mass/Vol] 104 mg/dL High 70-100 [facility] Comment on above: Performed By: #### 8 5499 #### [facility] [address] [place] [address], [place] Glucose [Mass/Vol] 121 mg/dL High 70-100 [facility] Comment on above: Performed By: #### 8 5499 #### [address] [address], [facility] PORTABLE CHEST 1 VIEWon 03-20 PORTABLE CHEST [address] [facility] Department of Radiology [address] [place] [id number] Patient Name: SJ BREWSTER : 1950 Sex: F Age: Race: White Pt. Location: [place] [address] Patient Status: I Ordered Date: 04/04/2021 5:00:00 [...] today. Electronically signed: Roney Vigil. Transcribed by: [email or web address], User Resident: Electronically Signed by: RONEY VIGIL @ 04/04/2021 06:56 AM Normal [facility] Comment on above: Order Comment: Atele ctasis APTTon 04-03-2021 aPTT Coag (Bld) [Time] 33.2 s Normal 25.0-35.0 [facility] Comment on above: Order Comment: post [...] By: #### 8 [id number] #### [facility] [address] BASIC METABOLIC PANELon 03-20 Calcium [Mass/Vol] 8.5 mg/dL Low 8.6-10.3 [facility] Comment on above: Order Comment: Check Chest Tube Position, ON ARRIVAL TO CVU Performed By: #### 0 0071, [id number] ####[facility] [place] [address], [facility] Chloride [Moles/Vol] 107 mmol/L Normal 98-107 [facility] Comment on above: Order Comment: Check Chest Tube Position, ON ARRIVAL TO CVU Performed By: #### 0 0071, 28324 ####[facility] [place] [address], [place] CO2 [Moles/Vol] 26 mmol/L Normal 21-31 [facility] Comment on above: Order Comment: Check Chest Tube Position, ON ARRIVAL TO CVU Performed By: #### 0 0071, 13227 ####[facility] [place] [address], [facility] Creatinine [Mass/Vol] 0.56 mg/dL Low 0.60-1.20 [facility] Comment on above: Order Comment: Check Chest Tube Position, ON ARRIVAL TO CVU Performed By: #### 0 0071, 91864 ####[facility] [place] [address], [facility] GFR/1.73 sq M.predicted among blacks MDRD (S/P/Bld) [Vol rate/Area] mL/min/{1.73_m2} Normal >60 [facility] Comment on above: Order Comment: Check Chest Tube Position, ON ARRIVAL TO CVU Performed By: #### 0 0071, 61904 ####[facility] [place] [address], [facility] GFR/1.73 sq M.predicted among non-blacks MDRD (S/P/Bld) [Vol rate/Area] mL/min/{1.73_m2} Normal >60 [facility] Comment on above: Order Comment: Check Chest Tube Position, ON ARRIVAL TO CVU Performed By: #### 0 0071, 14019 ####[facility] [facility] [place] [address], [facility] Glucose [Mass/Vol] 123 mg/dL High 70-100 [facility] Comment on above: Order Comment: Check Chest Tube Position, ON ARRIVAL TO CVU Performed By: #### 0 0071, 29778 ####[facility] [place] [address], [place] Potassium [Moles/Vol] 4.2 mmol/L Normal 3.5-5.1 [facility] Comment on above: Order Comment: Check Chest Tube Position, ON ARRIVAL TO CVU Performed By: #### 0 0071, 31943 ####[facility] [place] [address], [place] Sodium [Moles/Vol] 137 mmol/L Normal 136-145 [facility] Comment on above: Order Comment: Check Chest Tube Position, ON ARRIVAL TO CVU Performed By: #### 0 0071, 54124 ####[facility] [place] [address], [facility] Urea nitrogen [Mass/Vol] 12 mg/dL Normal 7-25 [facility] Comment on above: Order Comment: Check Chest Tube Position, ON ARRIVAL TO CVU Performed By: #### 0 0071, 37012 ####[facility] [place] [address], [facility] CBC COMPLETE BLOOD COUNTon 0 04-03-2021 Erythrocyte distribution width (RBC) [Ratio] 16.4 % High 11.5-15.0 [facility] Comment on above: Order Comment: post op day 1No: Do not add to previous draw Performed By: #### 8 5499 #### [facility] [address] [place] [address], [facility] Hematocrit (Bld) [Volume fraction] 32.0 % Low 36.0-45.0 [facility] Comment on above: Order Comment: post op day 1No: Do not add to previous draw Performed By: #### 8 5499 #### [facility] [address] [place] [address], [place] Hemoglobin (Bld) [Mass/Vol] 11.0 g/dL Low 12.0-15.0 [facility] Comment on above: Order Comment: post op day 1No: Do not add to previous draw Performed By: #### 8 5499 #### [facility] [address] [place] [address], [place] MCH (RBC) [Entitic mass] 30.0 pg Normal 27.0-33.0 [facility] Comment on above: Order Comment: post op day 1No: Do not add to previous draw Performed By: #### 8 5499 #### [facility] [address] [place] [address], [place] MCHC (RBC) [Mass/Vol] 34.4 g/dL Normal 32.0-35.0 [facility] Comment on above: Order Comment: post op day 1No: Do not add to previous draw Performed By: #### 8 5499 #### [facility] [address] [place] [address], [place] MCV (RBC) [Entitic vol] 87.2 fL Normal 82.0-98.0 [facility] Comment on above: Order Comment: post op day 1No: Do not add to previous draw Performed By: #### 8 5499 #### [facility] [address] [place] [address], [facility] Nucleated RBC/100 WBC (Bld) [Ratio] 0 % Normal 0-0 [facility] Comment on above: Order Comment: post op day 1No: Do not add to previous draw Performed By: #### 8 5499 #### [facility] [address] [place] [id number], [place] PLAT CNT 125 10*3/uL Low 150-400 [facility] Comment on above: Order Comment: post op day 1No: Do not add to previous draw Performed By: #### 8 5499 #### [facility] [address] [place] [address], [place] RBC (Bld) [#/Vol] 3.67 10*6/uL Low 3.80-5.00 [facility] Comment on above: Order Comment: post op day 1No: Do not add to previous draw Performed By: #### 8 5499 #### [facility] [address] [place] [address], [place] WBC (Bld) [#/Vol] 14.47 10*3/uL High 4.00-10.60 [facility] Comment on above: Order Comment: post op day 1No: Do not add to previous draw Performed By: #### 8 [id number] #### [facility] [address] [place] [address], [facility] COOXIMETRYon 04-03-2021 COHB 2 % Normal [facility] Comment on above: Performed By: #### 3 0965 #### [facility] [address] [place] [address], [facility] METHB 1 % Normal [facility] Comment on above: Performed By: #### 3 0965 #### [facility] [address] [facility] [address] Oxygen saturation in Blood 70.5 % Normal 65.0-75.0 [facility] Comment on above: Performed By: #### 3 0965 #### [facility] [address] [facility] [address] THB 11.0 g/dL Normal [facility] Comment on above: Performed By: #### 3 0965 #### [facility] [address] [facility]. [address] LACTATE BLOODon 04-03-2021 Lactate [Moles/Vol] 0.9 mmol/L Normal 0.5-2.2 [facility] Comment on above: Order Comment: Check Chest Tube Position, ON ARRIVAL TO CVU Performed By: #### 1 0054 ####[facility] MAGNESIUM BLOODon 04-03-2021 Magnesium [Mass/Vol] 2.2 mg/dL Normal 1.9-2.7 [facility] Comment on above: Order Comment: Check Chest Tube Position, ON ARRIVAL TO CVU Performed By: #### 0 0071, 84106 ####[facility] Operative Reporton 1 Operative Report MR#: [id number] Pt. Name: Sj Brewster Room #: NAYE [id number] Discharge Date: Birthdate: 1950 OPERATIVE REPORT DATE [...] harvesting of the left greater saphenous vein. [employer] GRADER: Ernestina. ANESTHESIA: General with endotracheal intubation. ANESTHESIOLOGIST: [...] and ascending aorta was cannulated with an 18-Moldovan Opti cannula using Seldinger technique. This was [...] to the posterior descending artery and a [id number] anastomosis was constructed in a cruciate fashion [...] p (more content not included)... Normal [facility] POC GLUCOSE LABon 04-03-2021 Glucose [Mass/Vol] 133 mg/dL High 70-100 [facility] Comment on above: Performed By: #### 3 1595 #### [facility] [address] [place] [address], [place] Glucose [Mass/Vol] 112 mg/dL High 70-[address] [facility] Comment on above: Performed By: #### 3 1595 #### [facility] [address] [place] [address], [place] Glucose [Mass/Vol] 120 mg/dL High 70-[address] [facility] Comment on above: Performed By: #### 8 5499 #### [facility] [address] [place] [address], [place] Glucose [Mass/Vol] 123 mg/dL High 70-[address] [facility] Comment on above: Performed By: #### 3 1595 #### [facility] [address] [place] [address], [place] Glucose [Mass/Vol] 105 mg/dL High 70-[address] [facility] Comment on above: Performed By: #### 8 5499 #### [facility] [address] [place] [address], [place] Glucose [Mass/Vol] 127 mg/dL High 70-[address] [facility] Comment on above: Performed By: #### 3 1595 #### [facility] [address] [place] [address], [place] Glucose [Mass/Vol] 154 mg/dL High 70-[address] [facility] Comment on above: Performed By: #### 3 1595 #### [facility] [address] [place] [address], [place] Glucose [Mass/Vol] 149 mg/dL High 70-[address] [facility] Comment on above: Performed By: #### 3 1595 #### [facility] [address] [place] [address], [place] PORTABLE CHEST 1 VIEWon 03-20 PORTABLE CHEST [address] [facility] Department of Radiology [address] [place] [address] Patient Name: SJ BREWSTER : 1950 Sex: F Age: Race: White Pt. Location: [place] [address] Patient Status: I Ordered Date: 04/03/2021 5:30:00 [...] of median sternotomy. Removal of previously seen [place]-Ayan catheter, mediastinal drain, left basilar chest tube. [...] Patel. Electronically signed: DENISE PATEL. Transcribed by: [email or web address], User Resident: Electronically Signed by: DENISE PATEL @ 04/03/2021 07:17 PM Normal [facility] Comment on above: Order Comment: evalu ate for Pneumothorax PORTABLE CHEST [address] [facility] Department of Radiology [address] [place] [id number] Patient Name: SJ BREWSTER : 1950 Sex: F Age: Race: White Pt. Location: [id number] Patient Status: I Ordered Date: 04/03/2021 7:00:00 [...] tube and NG tube have been removed, [place]-Ayan catheter tip remains in the pulmonary outflow tract. Mediastinal and left-sided chest tubes remain no pneumothorax identified. Minimal bibasilar atelectasis suggested, otherwise lungs IMPRESSION: Status post extubation. Minimal atelectasis over both lung bases. No change in chest tubes. Electronically signed: Roney Vgiil. Transcribed by: [email or web address], User Resident: Electronically Signed by: RONEY VIGIL @ 04/03/2021 09:03 AM Normal [facility] Comment on above: Order Comment: evalu ate Chest Tube Position PROTHROMBIN TIMEon INR Coag (PPP) [Relative time] 1.33 {INR} High 0.91-1.16 [facility] Comment on above: Order Comment: post [...] By: #### 8 [id number] #### [facility] [address] [place] [address], [facility] PT Coag (PPP) [Time] 16.5 s High 12.3-14.8 [facility] Comment on above: Order Comment: post op day 1No: Do not add to previous draw Result Comment: ALL RESULTS MUST BE INTERPRETED WITH RESPECT TO BLOOD DRAWING ARTIFACT OR DILUTION ERROR OF ANTICOAGULANT AT THE TIME OF SAMPLING. Performed By: #### 8 [id number] #### [facility] [address] [place] [address], [place] ACTIVATED CLOTTING TIMEon ACTIVATED CLOTTING TIME 121 sec Normal 82-152 [facility] Comment on above: Performed By: #### 8 [id number] #### [facility] [address] [place] [address], [place] ACTIVATED CLOTTING TIME 126 sec Normal 82-152 [facility] Comment on above: Performed By: #### 8 [id number] #### [facility] [address] [place] [address], [place] ACTIVATED CLOTTING TIME 132 sec Normal 82-152 [facility] Comment on above: Performed By: #### 3 0739 #### [facility] [address] [place] [address], [place] ACTIVATED CLOTTING TIME 655 sec High 82-152 [facility] Comment on above: Performed By: #### 3 1977 #### [facility] [address] [place] [address], [place] ACTIVATED CLOTTING TIME 484 sec High 82-152 [facility] Comment on above: Performed By: #### 3 1977 #### [facility] [address] [place] [address], [place] ACTIVATED CLOTTING TIME 599 sec High 82-152 [facility] Comment on above: Performed By: #### 8 [id number] #### [facility] [address] [place] [address], [place] ACTIVATED CLOTTING TIME 694 sec High 82-152 [facility] Comment on above: Performed By: #### 8 [id number] #### [facility] [address] [place] [address], [place] ACTIVATED CLOTTING TIME 484 sec High 82-152 [facility] Comment on above: Performed By: #### 8 [id number] #### [facility] [address] [place] [address], [place] ACTIVATED CLOTTING TIME 416 sec High 82-152 [facility] Comment on above: Performed By: #### 3 1976 #### [facility] [address] [place] [address], [facility] ACTIVATED CLOTTING TIME 121 sec Normal 82-152 [facility] Comment on above: Performed By: #### 3 1976 #### [facility] [address] APTTon 04-02-2021 aPTT Coag (Bld) [Time] 32.6 s Normal 25.0-35.0 [facility] Comment on above: Order Comment: No: [...] By: #### 8 [id number] #### [facility] [address] [place] [address], [facility] aPTT Coag (Bld) [Time] 43.1 s High 25.0-35.0 [facility] Comment on above: Result Comment: ALL [...] By: #### 8 [id number] #### [facility] [address] ARTERIAL BLOOD GAS WITH ICAo n 04-02-2021 BASE EXCESS -5 mmol/L Low -2-3 [facility] Comment on above: Performed By: #### 3 0965 #### [facility] [address] [place] [address], [facility] BILEVEL 5 Normal [facility] Comment on above: Performed By: #### 3 0965 #### [facility] [address] [place] [address], [facility] [employer] MV Normal [facility] Comment on above: Performed By: #### 3 0965 #### [facility] [address] [place] [address], [facility] FIO2 40 % Normal [facility] Comment on above: Performed By: #### 3 0965 #### [facility] [address] [place] [address], [facility] HCO3 (Bld) [Moles/Vol] 20 mmol/L Low 21-28 [facility] Comment on above: Performed By: #### 3 0965 #### [facility] [address] [place] [address], [facility] IONIZED CALCIUM 1.28 mmol/L Normal 1.13-1.32 [facility] Comment on above: Performed By: #### 3 0965 #### [facility] [address] [place] [address], [facility] MIN VOLUME 7.1 Normal [facility] Comment on above: Performed By: #### 3 0965 #### [facility] [address] [place] [address], [facility] MODALITY SPONT Normal [facility] Comment on above: Performed By: #### 3 0965 #### [facility] [address] [place] [address], [facility] Oxygen (Bld) [Partial pressure] 156 mm[Hg] Critically high 83-108 [facility] Comment on above: Performed By: #### 3 0965 #### [facility] [address] [place] [address], [facility] Oxygen saturation in Blood 97.2 % High 94.0-97.0 [facility] Comment on above: Performed By: #### 3 0965 #### [facility] [address] [place] [address], [facility] PCO2 37 mmHg Normal 35-45 [facility] Comment on above: Performed By: #### 3 0965 #### [facility] [address] [place] [address], [facility] PEEP 6.0 CMH20 Normal [facility] Comment on above: Performed By: #### 3 0965 #### [facility] [address] [place] [address], [facility] pH (Bld) 7.34 [pH] Low 7.35-7.45 [facility] Comment on above: Performed By: #### 3 0965 #### [facility] [address] [facility] [address], [facility] BASE EXCESS -5 mmol/L Low -2-3 [facility] Comment on above: Order Comment: on ar rival to CVU Performed By: #### 8 [id number] #### [facility] [address] [place] [address], [facility] [employer] MV Normal [facility] Comment on above: Order Comment: on ar rival to CVU Performed By: #### 8 [id number] #### [facility] [address] [place] [address], [facility] FIO2 40 % Normal [facility] Comment on above: Order Comment: on ar rival to CVU Performed By: #### 8 [id number] #### [facility] [address] [place] [address], [facility] HCO3 (Bld) [Moles/Vol] 19 mmol/L Low 21-28 [facility] Comment on above: Order Comment: on ar rival to CVU Performed By: #### 8 [id number] #### [facility] [address] [place] [address], [facility] IONIZED CALCIUM 1.38 mmol/L High 1.13-1.32 [facility] Comment on above: Order Comment: on ar rival to CVU Performed By: #### 8 [id number] #### [facility] [address] [place] [address], [place] MIN VOLUME 8.0 Normal [facility] Comment on above: Order Comment: on ar rival to CVU Performed By: #### 8 [id number] #### [facility] [address] [place] [address], [place] MODALITY SIMV Normal [facility] Comment on above: Order Comment: on ar rival to CVU Performed By: #### 8 5499 #### [facility] [address] [place] [address], [facility] Oxygen (Bld) [Partial pressure] 192 mm[Hg] Critically high 83-108 [facility] Comment on above: Order Comment: on ar rival to CVU Performed By: #### 8 [id number] #### [facility] [address] [place] [address], [facility] Oxygen saturation in Blood 97.6 % High 94.0-97.0 [facility] Comment on above: Order Comment: on ar rival to CVU Performed By: #### 8 [id number] #### [facility] [address] [place] [address], [place] PCO2 31 mmHg Low 35-45 [facility] Comment on above: Order Comment: on ar rival to CVU Performed By: #### 8 [id number] #### [facility] [address] [place] [address], [place] PEEP 5.0 CMH20 Normal [facility] Comment on above: Order Comment: on ar rival to CVU Performed By: #### 8 [id number] #### [facility] [address] [place] [address], [place] pH (Bld) 7.39 [pH] Normal 7.35-7.45 [facility] Comment on above: Order Comment: on ar rival to CVU Performed By: #### 8 [id number] #### [facility] [address] [place] [address], [place] PRESSURE SUPPORT 8 Normal [facility] Comment on above: Order Comment: on ar rival to CVU Performed By: #### 8 [id number] #### [facility] [address] [place] [address], [place] Respiratory rate 14 /min Normal [facility] Comment on above: Order Comment: on ar rival to CVU Performed By: #### 8 5499 #### [facility] [address] [place] [address], [place] TIDAL VOLUME (VT) CC 450 Normal [facility] Comment on above: Order Comment: on ar rival to CVU Performed By: #### 8 [id number] #### [facility] [address] [place] [address], [place] BASIC METABOLIC PANELon 07 Calcium [Mass/Vol] 8.8 mg/dL Normal 8.6-10.3 [facility] Comment on above: Order Comment: Check Chest Tube Position, ON ARRIVAL TO CVU Performed By: #### 0 0071, 82434, 53225 ####[facility] [place] [address], [place] Chloride [Moles/Vol] 108 mmol/L High 98-107 [facility] Comment on above: Order Comment: Check Chest Tube Position, ON ARRIVAL TO CVU Performed By: #### 0 0071, 32268, 86087 ####[facility] [place] [address], [place] CO2 [Moles/Vol] 25 mmol/L Normal 21-31 [facility] Comment on above: Order Comment: Check Chest Tube Position, ON ARRIVAL TO CVU Performed By: #### 0 0071, 16385, 42044 ####[facility] [place] [address], [facility] Creatinine [Mass/Vol] 0.57 mg/dL Low 0.60-1.20 [facility] Comment on above: Order Comment: Check Chest Tube Position, ON ARRIVAL TO CVU Performed By: #### 0 0071, 91641, 55637 ####[facility] [place] [address], [facility] GFR/1.73 sq M.predicted among blacks MDRD (S/P/Bld) [Vol rate/Area] mL/min/{1.73_m2} Normal >60 [facility] Comment on above: Order Comment: Check Chest Tube Position, ON ARRIVAL TO CVU Performed By: #### 0 0071, 85222, 26364 ####[facility] [place] [address], [facility] GFR/1.73 sq M.predicted among non-blacks MDRD (S/P/Bld) [Vol rate/Area] mL/min/{1.73_m2} Normal >60 [facility] Comment on above: Order Comment: Check Chest Tube Position, ON ARRIVAL TO CVU Performed By: #### 0 0071, 95179, 49850 ####[facility] [place] [address], [place] Glucose [Mass/Vol] 164 mg/dL High 70-100 [facility] Comment on above: Order Comment: Check Chest Tube Position, ON ARRIVAL TO CVU Performed By: #### 0 0071, 73755, 98005 ####[facility] [place] [address], [place] Potassium [Moles/Vol] 3.8 mmol/L Normal 3.5-5.1 [facility] Comment on above: Order Comment: Check Chest Tube Position, ON ARRIVAL TO CVU Performed By: #### 0 0071, 93762, 08981 ####[facility] [place] [address], [place] Sodium [Moles/Vol] 139 mmol/L Normal 136-145 [facility] Comment on above: Order Comment: Check Chest Tube Position, ON ARRIVAL TO CVU Performed By: #### 0 0071, 97313, 26142 ####[facility] [place] [address], [place] Urea nitrogen [Mass/Vol] 10 mg/dL Normal 7-25 [facility] Comment on above: Order Comment: Check Chest Tube Position, ON ARRIVAL TO CVU Performed By: #### 0 0071, 35680, 88617 ####[facility] [place] [address], [place] Calcium [Mass/Vol] 9.4 mg/dL Normal 8.6-10.3 [facility] Comment on above: Performed By: #### 0 0071, 86173 ####[facility] [place] [address], [place] Chloride [Moles/Vol] 111 mmol/L High 98-107 [facility] Comment on above: Performed By: #### 0 0071, 62530 ####[facility] [place] [address], [place] CO2 [Moles/Vol] 23 mmol/L Normal 21-31 [facility] Comment on above: Performed By: #### 0 0071, 46502 ####[facility] [place] [address], [place] Creatinine [Mass/Vol] 0.49 mg/dL Low 0.60-1.20 [facility] Comment on above: Performed By: #### 0 0071, 00849 ####[facility] [place] [address], [facility] GFR/1.73 sq M.predicted among blacks MDRD (S/P/Bld) [Vol rate/Area] mL/min/{1.73_m2} Normal >60 [facility] Comment on above: Performed By: #### 0 0071, 55697 ####[facility] [place] [address], [place] GFR/1.73 sq M.predicted among non-blacks MDRD (S/P/Bld) [Vol rate/Area] mL/min/{1.73_m2} Normal >60 [facility] Comment on above: Performed By: #### 0 0071, 29034 ####[facility] [facility] [place] [address], [facility] Glucose [Mass/Vol] 138 mg/dL High 70-100 [facility] Comment on above: Performed By: #### 0 0071, 08903 ####[facility] [place] [address], [place] Potassium [Moles/Vol] 3.9 mmol/L Normal 3.5-5.1 [facility] Comment on above: Performed By: #### 0 0071, 14475 ####[facility] [place] [address], [place] Sodium [Moles/Vol] 140 mmol/L Normal 136-145 [facility] Comment on above: Performed By: #### 0 0071, 77998 ####[facility] [place] [address], [place] Urea nitrogen [Mass/Vol] 8 mg/dL Normal 7-25 [facility] Comment on above: Performed By: #### 0 0071, 41137 ####[facility] [place] [address], [place] CBC COMPLETE BLOOD COUNTon 0 04-02-2021 Erythrocyte distribution width (RBC) [Ratio] 15.9 % High 11.5-15.0 [facility] Comment on above: Order Comment: No: D o not add to previous draw Performed By: #### 8 5499 #### [facility] [address] [place] [id number], [facility] Hematocrit (Bld) [Volume fraction] 34.4 % Low 36.0-45.0 [facility] Comment on above: Order Comment: No: D o not add to previous draw Performed By: #### 8 5499 #### [facility] [address] [place] [address], [facility] Hemoglobin (Bld) [Mass/Vol] 11.9 g/dL Low 12.0-15.0 [facility] Comment on above: Order Comment: No: D o not add to previous draw Performed By: #### 8 5499 #### [facility] [address] [place] [id number], [facility] IMM PLATELET FRAC 3.9 % Normal 0.8-6.[address] [facility] Comment on above: Order Comment: No: D o not add to previous draw Performed By: #### 8 5499 #### [facility] [address] [facility] [place] [address], [facility] MCH (RBC) [Entitic mass] 30.6 pg Normal 27.0-33.0 [facility] Comment on above: Order Comment: No: D o not add to previous draw Performed By: #### 8 5499 #### [facility] [address] [place] [address], [facility] MCHC (RBC) [Mass/Vol] 34.6 g/dL Normal 32.0-35.0 [facility] Comment on above: Order Comment: No: D o not add to previous draw Performed By: #### 8 5499 #### [facility] [address] [place] [address], [facility] MCV (RBC) [Entitic vol] 88.4 fL Normal 82.0-98.0 [facility] Comment on above: Order Comment: No: D o not add to previous draw Performed By: #### 8 5499 #### [facility] [address] [place] [address], [facility] Nucleated RBC/100 WBC (Bld) [Ratio] 0 % Normal 0-0 [facility] Comment on above: Order Comment: No: D o not add to previous draw Performed By: #### 8 5499 #### [facility] [address] [place] [address], [facility] PLAT CNT 140 10*3/uL Low 150-400 [facility] Comment on above: Order Comment: No: D o not add to previous draw Performed By: #### 8 5499 #### [facility] [address] [place] [address], [facility] RBC (Bld) [#/Vol] 3.89 10*6/uL Normal 3.80-5.00 [facility] Comment on above: Order Comment: No: D o not add to previous draw Performed By: #### 8 5499 #### [facility] [address] [place] [address], [facility] WBC (Bld) [#/Vol] 19.57 10*3/uL High 4.00-10.60 [facility] Comment on above: Order Comment: No: D o not add to previous draw Performed By: #### 8 [id number] #### [facility] [address] [place] [id number], [facility] Erythrocyte distribution width (RBC) [Ratio] 14.7 % Normal 11.5-15.0 [facility] Comment on above: Performed By: #### 8 [id number] #### [facility] [address] [place] [id number], [facility] Hematocrit (Bld) [Volume fraction] 27.3 % Low 36.0-45.0 [facility] Comment on above: Performed By: #### 8 5499 #### [facility] [address] [place] [address], [facility] Hemoglobin (Bld) [Mass/Vol] 9.1 g/dL Low 12.0-15.0 [facility] Comment on above: Performed By: #### 8 5499 #### [facility] [address] [place] [address], [facility] MCH (RBC) [Entitic mass] 30.3 pg Normal 27.0-33.0 [facility] Comment on above: Performed By: #### 8 [id number] #### [facility] [address] [place] [address], [facility] MCHC (RBC) [Mass/Vol] 33.3 g/dL Normal 32.0-35.0 [facility] Comment on above: Performed By: #### 8 5499 #### [facility] [address] [place] [address], [facility] MCV (RBC) [Entitic vol] 91.0 fL Normal 82.0-98.0 [facility] Comment on above: Performed By: #### 8 [id number] #### [facility] [address] [place] [address], [facility] Nucleated RBC/100 WBC (Bld) [Ratio] 0 % Normal 0-0 [facility] Comment on above: Performed By: #### 8 [id number] #### [facility] [address] [place] [address], [facility] PLAT CNT 103 10*3/uL Low 150-400 [facility] Comment on above: Performed By: #### 8 5499 #### [facility] [address] [place] [address], [facility] RBC (Bld) [#/Vol] 3.00 10*6/uL Low 3.80-5.00 [facility] Comment on above: Performed By: #### 8 5499 #### [facility] [address] WBC (Bld) [#/Vol] 15.30 10*3/uL High 4.00-10.60 [facility] Comment on above: Performed By: #### 8 5499 #### [facility] [address] [place] [address], [facility] FIBRINOGENon 04-02-2021 FIBRINOGEN 138 mg/dL Low 150-425 [facility] Comment on above: Performed By: #### 8 5499 #### [facility] [address] [facility] FRESH FROZEN PLASMA 2 UNITSo n 04-02-2021 PRODUCT CODE 1 E2701 Normal [facility] Comment on above: Order Comment: INR: 2.39 ,PTT: 43.1 at the time of order ;Indication: Performed By: #### 8 5499 #### [facility] [address] [facility] PRODUCT CODE 2 E2701 Normal [facility] Comment on above: Order Comment: INR: 2.39 ,PTT: 43.1 at the time of order ;Indication: Performed By: #### 8 5499 #### [facility] [address] PRODUCT STATUS 1 RE Normal [facility] Comment on above: Order Comment: INR: 2.39 ,PTT: 43.1 at the time of order ;Indication: Result Comment: Resu lt changed by IF on 04/04/2021 01:00. The previous value was XX. Performed By: #### 8 5499 #### [facility] [address] PRODUCT STATUS 2 RE Normal [facility] Comment on above: Order Comment: INR: 2.39 ,PTT: 43.1 at the time of order ;Indication: Result Comment: Resu lt changed by IF on 04/04/2021 01:00. The previous value was XX. Performed By: #### 8 [id number] #### [facility] [address] [place] [address], [facility] UNIT ABO 1 A Normal [facility] Comment on above: Order Comment: INR: 2.39 ,PTT: 43.1 at the time of order ;Indication: Performed By: #### 8 5499 #### [facility] [address] [place] [address], [facility] UNIT ABO 2 A Normal [facility] Comment on above: Order Comment: INR: 2.39 ,PTT: 43.1 at the time of order ;Indication: Performed By: #### 8 5499 #### [facility] [address] [place] [address], [facility] UNIT ID 1 [id number] Normal [facility] Comment on above: Order Comment: INR: 2.39 ,PTT: 43.1 at the time of order ;Indication: Performed By: #### 8 5499 #### [facility] [address] [place] [address], [facility] UNIT ID 2 [id number] Normal [facility] Comment on above: Order Comment: INR: 2.39 ,PTT: 43.1 at the time of order ;Indication: Performed By: #### 8 5499 #### [facility] [address] [place] [address], [facility] UNIT RH 1 Positive Normal [facility] Comment on above: Order Comment: INR: 2.39 ,PTT: 43.1 at the time of order ;Indication: Performed By: #### 8 [id number] #### [facility] [address] [place] [address], [facility] UNIT RH 2 Positive Normal [facility] Comment on above: Order Comment: INR: 2.39 ,PTT: 43.1 at the time of order ;Indication: Performed By: #### 8 [id number] #### [facility] [address] [place] [address], [place] LACTATE BLOODon 04-02-2021 Lactate [Moles/Vol] 1.5 mmol/L Normal 0.5-2.2 [facility] Comment on above: Performed By: #### 3 0965 #### [facility] [address] [place] [address], [place] MAGNESIUM BLOODon 04-02-2021 Magnesium [Mass/Vol] 1.8 mg/dL Low 1.9-2.7 [facility] Comment on above: Order Comment: Check Chest Tube Position, ON ARRIVAL TO CVU Performed By: #### 0 0071, 72178, 55814 ####[facility] [place] [address], [place] Magnesium [Mass/Vol] 2.6 mg/dL Normal 1.9-2.7 [facility] Comment on above: Performed By: #### 0 0071, 66298 ####[facility] [place] [address], [place] PERFUSION BLOOD PANELon 03-20 BASE EXCESS -1.0 mmol/L Normal -2.0-3.0 [facility] Comment on above: Performed By: #### 3 1976 #### [facility] [address] [place] [address], [place] Glucose [Mass/Vol] 139 mg/dL High 70-105 [facility] Comment on above: Performed By: #### 3 1976 #### [facility] [address] [place] [address], [place] Hematocrit (Bld) [Volume fraction] 24 % Low 38-51 [facility] Comment on above: Performed By: #### 3 1976 #### [facility] [address] [place] [address], [place] Hemoglobin (Bld) [Mass/Vol] 8.2 g/dL Low 12.0-17.0 [facility] Comment on above: Performed By: #### 3 1976 #### [facility] [address] [place] [address], [facility] IONIZED CALCIUM 1.35 mmol/L High 1.12-1.32 [facility] Comment on above: Performed By: #### 3 1976 #### [facility] [address] [place] [address], [facility] Oxygen (Bld) [Partial pressure] 530.0 mm[Hg] High 80.0-105.0 [facility] Comment on above: Performed By: #### 3 1976 #### [facility] [address] [place] [address], [facility] PCO2 40.1 mmHg Normal 35.0-45.0 [facility] Comment on above: Performed By: #### 3 1976 #### [facility] [address] [place] [address], [facility] pH (Bld) 7.39 [pH] Normal 7.35-7.45 [facility] Comment on above: Performed By: #### 3 1976 #### [facility] [address] [place] [address], [facility] Potassium [Moles/Vol] 4.1 mmol/L Normal 3.5-4.9 [facility] Comment on above: Performed By: #### 3 1976 #### [facility] [address] [place] [address], [place] Sodium [Moles/Vol] 140 mmol/L Normal 138-146 [facility] Comment on above: Performed By: #### 3 1976 #### [facility] [address] [place] [address], [place] BASE EXCESS 2.0 mmol/L Normal -2.0-3.0 [facility] Comment on above: Performed By: #### 3 1976 #### [facility] [address] [place] [address], [place] Glucose [Mass/Vol] 146 mg/dL High 70-105 [facility] Comment on above: Performed By: #### 3 1976 #### [facility] [address] [place] [address], [place] Hematocrit (Bld) [Volume fraction] 16 % Low 38-51 [facility] Comment on above: Performed By: #### 3 1976 #### [facility] [address] [place] [address], [place] Hemoglobin (Bld) [Mass/Vol] 5.4 g/dL Critically low 12.0-17.0 [facility] Comment on above: Performed By: #### 3 1976 #### [facility] [address] [place] [address], [facility] IONIZED CALCIUM 1.15 mmol/L Normal 1.12-1.32 [facility] Comment on above: Performed By: #### 3 1976 #### [facility] [address] [place] [address], [facility] Oxygen (Bld) [Partial pressure] 529.0 mm[Hg] High 80.0-105.0 [facility] Comment on above: Performed By: #### 3 1976 #### [facility] [address] [place] [address], [place] PCO2 37.9 mmHg Normal 35.0-45.0 [facility] Comment on above: Performed By: #### 3 1976 #### [facility] [address] [place] [address], [place] pH (Bld) 7.44 [pH] Normal 7.35-7.45 [facility] Comment on above: Performed By: #### 3 1976 #### [facility] [address] [place] [address], [place] Potassium [Moles/Vol] 3.9 mmol/L Normal 3.5-4.9 [facility] Comment on above: Performed By: #### 3 1976 #### [facility] [address] [place] [address], [facility] Sodium [Moles/Vol] 141 mmol/L Normal 138-146 [facility] Comment on above: Performed By: #### 3 1976 #### [facility] [address] [place] [address], [facility] BASE EXCESS 2.0 mmol/L Normal -2.0-3.0 [facility] Comment on above: Performed By: #### 8 [id number] #### [facility] [address] [place] [address], [facility] Glucose [Mass/Vol] 168 mg/dL High 70-105 [facility] Comment on above: Performed By: #### 8 [id number] #### [facility] [address] [place] [address], [facility] Hematocrit (Bld) [Volume fraction] 17 % Low 38-51 [facility] Comment on above: Performed By: #### 8 [id number] #### [facility] [address] [place] [address], [facility] Hemoglobin (Bld) [Mass/Vol] 5.8 g/dL Critically low 12.0-17.0 [facility] Comment on above: Performed By: #### 8 [id number] #### [facility] [address] [place] [address], [facility] IONIZED CALCIUM 1.95 mmol/L Critically high 1.12-1.32 [facility] Comment on above: Performed By: #### 8 [id number] #### [facility] [address] [place] [address], [facility] Oxygen (Bld) [Partial pressure] 489.0 mm[Hg] High 80.0-105.0 [facility] Comment on above: Performed By: #### 8 [id number] #### [facility] [address] [place] [address], [facility] PCO2 41.5 mmHg Normal 35.0-45.0 [facility] Comment on above: Performed By: #### 8 [id number] #### [facility] [address] [place] [address], [facility] pH (Bld) 7.42 [pH] Normal 7.35-7.45 [facility] Comment on above: Performed By: #### 8 [id number] #### [facility] [address] [place] [address], [facility] Potassium [Moles/Vol] 4.7 mmol/L Normal 3.5-4.9 [facility] Comment on above: Performed By: #### 8 [id number] #### [facility] [address] [place] [address], [facility] Sodium [Moles/Vol] 136 mmol/L Low 138-146 [facility] Comment on above: Performed By: #### 8 [id number] #### [facility] [address] [place] [address], [facility] BASE EXCESS 0.0 mmol/L Normal -2.0-3.0 [facility] Comment on above: Performed By: #### 8 [id number] #### [facility] [address] [place] [id number], [facility] Glucose [Mass/Vol] 126 mg/dL High 70-105 [facility] Comment on above: Performed By: #### 8 [id number] #### [facility] [address] [place] [id number], [facility] Hematocrit (Bld) [Volume fraction] 16 % Low 38-51 [facility] Comment on above: Performed By: #### 8 [id number] #### [facility] [address] [place] [address], [facility] Hemoglobin (Bld) [Mass/Vol] 5.4 g/dL Critically low 12.0-17.0 [facility] Comment on above: Performed By: #### 8 [id number] #### [facility] [address] [place] [address], [place] IONIZED CALCIUM 0.94 mmol/L Low 1.12-1.32 [facility] Comment on above: Performed By: #### 8 [id number] #### [facility] [address] [place] [address], [facility] Oxygen (Bld) [Partial pressure] 37.0 mm[Hg] Normal [facility] Comment on above: Performed By: #### 8 [id number] #### [facility] [address] [place] [address], [facility] PCO2 36.9 mmHg Low 41.0-51.0 [facility] Comment on above: Performed By: #### 8 [id number] #### [facility] [address] [place] [address], [facility] pH (Bld) 7.43 [pH] High 7.31-7.41 [facility] Comment on above: Performed By: #### 8 [id number] #### [facility] [address] [place] [address], [place] Potassium [Moles/Vol] 4.4 mmol/L Normal 3.5-4.9 [facility] Comment on above: Performed By: #### 8 [id number] #### [facility] [address] [place] [address], [place] Sodium [Moles/Vol] 140 mmol/L Normal 138-146 [facility] Comment on above: Performed By: #### 8 [id number] #### [facility] [address] [place] [address], [place] BASE EXCESS 3.0 mmol/L Normal -2.0-3.0 [facility] Comment on above: Performed By: #### 8 [id number] #### [facility] [address] [place] [address], [facility] Glucose [Mass/Vol] 117 mg/dL High 70-105 [facility] Comment on above: Performed By: #### 8 [id number] #### [facility] [address] [place] [address], [facility] Hematocrit (Bld) [Volume fraction] 18 % Low 38-51 [facility] Comment on above: Performed By: #### 8 [id number] #### [facility] [address] [place] [address], [facility] Hemoglobin (Bld) [Mass/Vol] 6.1 g/dL Low 12.0-17.0 [facility] Comment on above: Performed By: #### 8 [id number] #### [facility] [address] [place] [address], [facility] IONIZED CALCIUM 0.92 mmol/L Low 1.12-1.32 [facility] Comment on above: Performed By: #### 8 [id number] #### [facility] [address] [place] [address], [facility] Oxygen (Bld) [Partial pressure] 445.0 mm[Hg] High 80.0-105.0 [facility] Comment on above: Performed By: #### 8 [id number] #### [facility] [address] [place] [address], [facility] PCO2 36.6 mmHg Normal 35.0-45.0 [facility] Comment on above: Performed By: #### 8 [id number] #### [facility] [address] [place] [address], [facility] pH (Bld) 7.48 [pH] High 7.35-7.45 [facility] Comment on above: Performed By: #### 8 [id number] #### [facility] [address] [place] [address], [facility] Potassium [Moles/Vol] 4.4 mmol/L Normal 3.5-4.9 [facility] Comment on above: Performed By: #### 8 [id number] #### [facility] [address] [place] [address], [place] Sodium [Moles/Vol] 138 mmol/L Normal 138-146 [facility] Comment on above: Performed By: #### 8 9 #### [facility] [address] [place] [address], [facility] BASE EXCESS 4.0 mmol/L High -2.0-3.0 [facility] Comment on above: Performed By: #### 3 1976 #### [facility] [address] [place] [address], [facility] Glucose [Mass/Vol] 118 mg/dL High 70-105 [facility] Comment on above: Performed By: #### 3 1976 #### [facility] [address] [place] [address], [facility] Hematocrit (Bld) [Volume fraction] 20 % Low 38-51 [facility] Comment on above: Performed By: #### 3 1976 #### [facility] [address] [place] [address], [facility] Hemoglobin (Bld) [Mass/Vol] 6.8 g/dL Low 12.0-17.0 [facility] Comment on above: Performed By: #### 3 1976 #### [facility] [address] [place] [address], [facility] IONIZED CALCIUM 0.96 mmol/L Low 1.12-1.32 [facility] Comment on above: Performed By: #### 3 1976 #### [facility] [address] [place] [address], [facility] Oxygen (Bld) [Partial pressure] 466.0 mm[Hg] High 80.0-105.0 [facility] Comment on above: Performed By: #### 3 1976 #### [facility] [address] [place] [address], [facility] PCO2 35.3 mmHg Normal 35.0-45.0 [facility] Comment on above: Performed By: #### 3 1976 #### [facility] [address] [place] [address], [facility] pH (Bld) 7.51 [pH] High 7.35-7.45 [facility] Comment on above: Performed By: #### 3 1976 #### [facility] [address] [place] [address], [place] Potassium [Moles/Vol] 4.3 mmol/L Normal 3.5-4.9 [facility] Comment on above: Performed By: #### 3 1976 #### [facility] [address] [place] [address], [place] Sodium [Moles/Vol] 138 mmol/L Normal 138-146 [facility] Comment on above: Performed By: #### 3 1976 #### [facility] [address] [place] [address], [place] BASE EXCESS 1.0 mmol/L Normal -2.0-3.0 [facility] Comment on above: Performed By: #### 3 1976 #### [facility] [address] [place] [address], [place] Glucose [Mass/Vol] 92 mg/dL Normal 70-105 [facility] Comment on above: Performed By: #### 3 1976 #### [facility] [address] [place] [address], [place] Hematocrit (Bld) [Volume fraction] 18 % Low 38-51 [facility] Comment on above: Performed By: #### 3 1976 #### [facility] [address] [place] [address], [facility] Hemoglobin (Bld) [Mass/Vol] 6.1 g/dL Low 12.0-17.0 [facility] Comment on above: Performed By: #### 3 1976 #### [facility] [address] [place] [address], [facility] IONIZED CALCIUM 0.90 mmol/L Low 1.12-1.32 [facility] Comment on above: Performed By: #### 3 1976 #### [facility] [address] [place] [address], [facility] Oxygen (Bld) [Partial pressure] 45.0 mm[Hg] Normal [facility] Comment on above: Performed By: #### 3 1976 #### [facility] [address] [place] [address], [facility] PCO2 32.1 mmHg Low 41.0-51.0 [facility] Comment on above: Performed By: #### 3 1976 #### [facility] [address] [place] [address], [facility] pH (Bld) 7.49 [pH] High 7.31-7.41 [facility] Comment on above: Performed By: #### 3 1976 #### [facility] [address] [place] [address], [facility] Potassium [Moles/Vol] 3.7 mmol/L Normal 3.5-4.9 [facility] Comment on above: Performed By: #### 3 1976 #### [facility] [address] [place] [address], [place] Sodium [Moles/Vol] 138 mmol/L Normal 138-146 [facility] Comment on above: Performed By: #### 3 1976 #### [facility] [address] [place] [address], [facility] BASE EXCESS 7.0 mmol/L High -2.0-3.0 [facility] Comment on above: Performed By: #### 3 1976 #### [facility] [address] [place] [address], [facility] Glucose [Mass/Vol] 94 mg/dL Normal 70-105 [facility] Comment on above: Performed By: #### 3 1976 #### [facility] [address] [place] [address], [facility] Hematocrit (Bld) [Volume fraction] 17 % Low 38-51 [facility] Comment on above: Performed By: #### 3 1976 #### [facility] [address] [place] [address], [facility] Hemoglobin (Bld) [Mass/Vol] 5.8 g/dL Critically low 12.0-17.0 [facility] Comment on above: Performed By: #### 3 1976 #### [facility] [address] [place] [address], [facility] IONIZED CALCIUM 0.85 mmol/L Low 1.12-1.32 [facility] Comment on above: Performed By: #### 3 1976 #### [facility] [address] [place] [address], [facility] Oxygen (Bld) [Partial pressure] 553.0 mm[Hg] High 80.0-105.0 [facility] Comment on above: Performed By: #### 3 1976 #### [facility] [address] [place] [address], [facility] PCO2 32.8 mmHg Low 35.0-45.0 [facility] Comment on above: Performed By: #### 3 1976 #### [facility] [address] [place] [address], [place] pH (Bld) 7.57 [pH] High 7.35-7.45 [facility] Comment on above: Performed By: #### 3 1976 #### [facility] [address] [place] [address], [facility] Potassium [Moles/Vol] 3.7 mmol/L Normal 3.5-4.9 [facility] Comment on above: Performed By: #### 3 1976 #### [facility] [address] [place] [address], [place] Sodium [Moles/Vol] 137 mmol/L Low 138-146 [facility] Comment on above: Performed By: #### 3 1976 #### [facility] [address] [place] [address], [facility] BASE EXCESS 0.0 mmol/L Normal -2.0-3.0 [facility] Comment on above: Performed By: #### 3 1976 #### [facility] [address] [place] [address], [facility] Glucose [Mass/Vol] 109 mg/dL High 70-105 [facility] Comment on above: Performed By: #### 3 1976 #### [facility] [address] [place] [address], [facility] Hematocrit (Bld) [Volume fraction] 27 % Low 38-51 [facility] Comment on above: Performed By: #### 3 1976 #### [facility] [address] [place] [address], [facility] Hemoglobin (Bld) [Mass/Vol] 9.2 g/dL Low 12.0-17.0 [facility] Comment on above: Performed By: #### 3 1976 #### [facility] [address] [place] [address], [facility] IONIZED CALCIUM 1.17 mmol/L Normal 1.12-1.32 [facility] Comment on above: Performed By: #### 3 1976 #### [facility] [address] [place] [address], [facility] Oxygen (Bld) [Partial pressure] 336.0 mm[Hg] High 80.0-105.0 [facility] Comment on above: Performed By: #### 3 1976 #### [facility] [address] [place] [address], [facility] PCO2 41.6 mmHg Normal 35.0-45.0 [facility] Comment on above: Performed By: #### 3 1976 #### [facility] [address] [place] [address], [facility] pH (Bld) 7.39 [pH] Normal 7.35-7.45 [facility] Comment on above: Performed By: #### 3 1976 #### [facility] [address] [place] [address], [place] Potassium [Moles/Vol] 3.6 mmol/L Normal 3.5-4.9 [facility] Comment on above: Performed By: #### 3 1976 #### [facility] [address] [place] [address], [place] Sodium [Moles/Vol] 139 mmol/L Normal 138-146 [facility] Comment on above: Performed By: #### 3 1976 #### [facility] [address] [place] [address], [place] BASE EXCESS 2.0 mmol/L Normal -2.0-3.0 [facility] Comment on above: Performed By: #### 8 [id number] #### [facility] [address] [place] [address], [place] Glucose [Mass/Vol] 93 mg/dL Normal 70-105 [facility] Comment on above: Performed By: #### 8 [id number] #### [facility] [address] [place] [address], [place] Hematocrit (Bld) [Volume fraction] 27 % Low 38-51 [facility] Comment on above: Performed By: #### 8 [id number] #### [facility] [address] [place] [address], [facility] Hemoglobin (Bld) [Mass/Vol] 9.2 g/dL Low 12.0-17.0 [facility] Comment on above: Performed By: #### 8 [id number] #### [facility] [address] [place] [address], [facility] IONIZED CALCIUM 1.15 mmol/L Normal 1.12-1.32 [facility] Comment on above: Performed By: #### 8 [id number] #### [facility] [address] [facility] [place] [address], [facility] Oxygen (Bld) [Partial pressure] 545.0 mm[Hg] High 80.0-105.0 [facility] Comment on above: Performed By: #### 8 [id number] #### [facility] [address] [place] [address], [facility] PCO2 37.6 mmHg Normal 35.0-45.0 [facility] Comment on above: Performed By: #### 8 [id number] #### [facility] [address] [facility] [address], [facility] pH (Bld) 7.45 [pH] Normal 7.35-7.45 [facility] Comment on above: Performed By: #### 8 [id number] #### [facility] [address] [place] [address], [facility] Potassium [Moles/Vol] 3.3 mmol/L Low 3.5-4.9 [facility] Comment on above: Performed By: #### 8 [id number] #### [facility] [address] [place] [address], [facility] Sodium [Moles/Vol] 140 mmol/L Normal 138-146 [facility] Comment on above: Performed By: #### 8 [id number] #### [facility] [address] [place] [address], [facility] PHOSPHORUS BLOODon Phosphate [Mass/Vol] 3.4 mg/dL Normal 2.5-5.0 [facility] Comment on above: Order Comment: Check Chest Tube Position, ON ARRIVAL TO CVU Performed By: #### 0 0071, 00906, [address] ####[facility] [address], [facility] POC GLUCOSE LABon 04-02-2021 Glucose [Mass/Vol] 154 mg/dL High 70-100 [facility] Comment on above: Performed By: #### 8 [id number] #### [facility] [address] [facility] [place] [address], [facility] Glucose [Mass/Vol] 101 mg/dL High 70-100 [facility] Comment on above: Performed By: #### 3 1595 #### [facility] [address] [facility]. [address] POC SARS COV2 ANTIGEN NEGATI VEon 04-02-2021 POC SARS COV2 ANTIGEN NEG Negative Normal NEGATIVE [facility] Comment on above: Result Comment: Nega [...] signs and symptoms consistent with COVID-19. The [employer] COVID-19 Ag Card is a lateral flow [...] Accreditation. Performed By: #### 3 1977 #### [address] PORTABLE CHEST 1 VIEWon 03-20 PORTABLE CHEST [address] [facility] Department of Radiology [address] [place] [id number] Patient Name: SJ BREWSTER : 1950 Sex: F Age: Race: White Pt. Location: [place] [address] Patient Status: I Ordered Date: 04/02/2021 1:30:00 [...] stomach. Thoracostomy tubes and mediastinal drainage tube. [place] catheter with the tip in the pulmonary outflow. Congested lung valerio. IMPRESSION: As above. Electronically signed: Kirk Campa. Transcribed by: [id number], User Resident: Electronically Signed by: KIRK CAMPA @ 04/02/2021 02:43 PM Normal [facility] Comment on above: Order Comment: Check Chest Tube Position, ON ARRIVAL TO CVU PROTHROMBIN TIMEon 1 INR Coag (PPP) [Relative time] 1.42 {INR} High 0.91-1.16 [facility] Comment on above: Order Comment: No: [...] By: #### 8 [id number] #### [facility] [address] PT Coag (PPP) [Time] 17.4 s High 12.3-14.8 [facility] Comment on above: Order Comment: No: D o not add to previous draw Result Comment: ALL RESULTS MUST BE INTERPRETED WITH RESPECT TO BLOOD DRAWING ARTIFACT OR DILUTION ERROR OF ANTICOAGULANT AT THE TIME OF SAMPLING. Performed By: #### 8 [id number] #### [facility] [address] [place] [address], [facility] INR Coag (PPP) [Relative time] 1.92 {INR} High 0.91-1.16 [facility] Comment on above: Order Comment: No: D o not add to previous draw Result Comment: [facility] P RECOMMENDED INR FOR WARFARIN THERAPY [...] By: #### 8 [id number] #### [facility] [address] [facility] [place] [address], [facility] PT Coag (PPP) [Time] 22.0 s High 12.3-14.8 [facility] Comment on above: Order Comment: No: D o not add to previous draw Result Comment: ALL RESULTS MUST BE INTERPRETED WITH RESPECT TO BLOOD DRAWING ARTIFACT OR DILUTION ERROR OF ANTICOAGULANT AT THE TIME OF SAMPLING. Performed By: #### 8 [id number] #### [facility] [address] [place] [address], [facility] INR Coag (PPP) [Relative time] 2.39 {INR} High 0.91-1.16 [facility] Comment on above: Result Comment: [facility] P RECOMMENDED INR FOR WARFARIN THERAPY [...] By: #### 8 [id number] #### [facility] [address] [facility]. [address] PT Coag (PPP) [Time] 26.2 s High 12.3-14.8 [facility] Comment on above: Result Comment: ALL RESULTS MUST BE INTERPRETED WITH RESPECT TO BLOOD DRAWING ARTIFACT OR DILUTION ERROR OF ANTICOAGULANT AT THE TIME OF SAMPLING. Performed By: #### 8 [id number] #### [facility] [address] RBC'S 2 UNITSon 04-02-2021 CROSSMATCH INTERP 1 COMP Normal [facility] Comment on above: Performed By: #### [id number] #### [facility] [address] [facility] [place] [address], [facility] CROSSMATCH INTERP 2 COMP Normal [facility] Comment on above: Performed By: #### [id number] #### [facility] [address] [facility] [place] [address], [facility] PRODUCT CODE 1 [id number] Normal [facility] Comment on above: Performed By: #### [id number] #### [facility] [address] [address], [facility] PRODUCT CODE 2 E0336 Normal [facility] Comment on above: Performed By: #### 3 0739 #### [facility] [address] [place] [address], [place] PRODUCT STATUS 1 RE Normal [facility] Comment on above: Result Comment: Resu lt changed by IF on 04/05/2021 07:21. The previous value was XM. Performed By: #### 3 0739 #### [facility] [address] [place] [address], [place] PRODUCT STATUS 2 RE Normal [facility] Comment on above: Result Comment: Resu lt changed by IF on 04/05/2021 07:21. The previous value was XM. Performed By: #### 3 0739 #### [facility] [address] [place] [address], [place] UNIT ABO 1 A Normal [facility] Comment on above: Performed By: #### 3 0739 #### [facility] [address] [place] [address], [place] UNIT ABO 2 A Normal [facility] Comment on above: Performed By: #### 3 0739 #### [facility] [address] [place] [address], [place] UNIT ID 1 [id number] Normal [facility] Comment on above: Performed By: #### 3 0739 #### [facility] [address] [place] [address], [place] UNIT ID 2 [id number] Normal [facility] Comment on above: Performed By: #### 3 0739 #### [facility] [address] [place] [address], [place] UNIT RH 1 Negative Normal [facility] Comment on above: Performed By: #### 3 0739 #### [facility] [address] [place] [address], [place] UNIT RH 2 Negative Normal [facility] Comment on above: Performed By: #### 3 0739 #### [facility] [address] [place] [address], [place] CROSSMATCH INTERP 1 COMP Normal [facility] Comment on above: Performed By: #### 3 0965 #### [facility] [address] [place] [address], [place] CROSSMATCH INTERP 2 COMP Normal [facility] Comment on above: Performed By: #### 3 0965 #### [facility] [address] [place] [address], [facility] PRODUCT CODE 1 E0336 Normal [facility] Comment on above: Performed By: #### 3 0965 #### [facility] [address] [place] [address], [facility] PRODUCT CODE 2 E0336 Normal [facility] Comment on above: Performed By: #### 3 0965 #### [facility] [address] [place] [address], [facility] PRODUCT STATUS 1 PT Normal [facility] Comment on above: Result Comment: Resu lt changed by IF on 04/02/2021 13:04. The previous value was XM. Result changed by IF on 04/03/2021 00:30. The previous value was IS. Performed By: #### 3 0965 #### [facility] [address] [place] [address], [facility] PRODUCT STATUS 2 PT Normal [facility] Comment on above: Result Comment: Resu lt changed by IF on 04/02/2021 13:04. The previous value was XM. Result changed by IF on 04/03/2021 00:30. The previous value was IS. Performed By: #### 3 0965 #### [facility] [address] [place] [address], [facility] UNIT ABO 1 A Normal [facility] Comment on above: Performed By: #### 3 65 #### [facility] [address] [place] [address], [place] UNIT ABO 2 A Normal [facility] Comment on above: Performed By: #### 3 0965 #### [facility] [address] [place] [address], [facility] UNIT ID 1 [id number] Normal [facility] Comment on above: Performed By: #### 3 65 #### [facility] [address] [place] [address], [facility] UNIT ID 2 [id number] Normal [facility] Comment on above: Performed By: #### 3 0965 #### [facility] [address] [place] [address], [place] UNIT RH 1 Negative Normal [facility] Comment on above: Performed By: #### 3 0965 #### [facility] [address] [place] [address], [facility] UNIT RH 2 Negative Normal [facility] Comment on above: Performed By: #### 3 0965 #### [facility] [address] [place] [address], [facility] RBC'S 2 UNITSon 04-01-2021 CROSSMATCH INTERP 1 COMP Normal [facility] Comment on above: Performed By: #### 3 0965 #### [facility] [address] [place] [address], [place] CROSSMATCH INTERP 2 COMP Normal [facility] Comment on above: Performed By: #### 3 0965 #### [facility] [address] [place] [address], [facility] PRODUCT CODE 1 E0336 Normal [facility] Comment on above: Performed By: #### 3 0965 #### [facility] [address] [place] [address], [facility] PRODUCT CODE 2 E0336 Normal [facility] Comment on above: Performed By: #### 3 0965 #### [facility] [address] [place] [address], [facility] PRODUCT STATUS 1 PT Normal [facility] Comment on above: Result Comment: Resu lt changed by IF on 04/02/2021 09:57. The previous value was XM. Result changed by IF on 04/03/2021 00:30. The previous value was IS. Performed By: #### 3 0965 #### [facility] [address] [place] [address], [facility] PRODUCT STATUS 2 PT Normal [facility] Comment on above: Result Comment: Resu lt changed by IF on 04/02/2021 09:57. The previous value was XM. Result changed by IF on 04/03/2021 00:30. The previous value was IS. Performed By: #### 3 0965 #### [facility] [address] [place] [address], [facility] UNIT ABO 1 A Normal [facility] Comment on above: Performed By: #### 3 0965 #### [facility] [address] [place] [address], [facility] UNIT ABO 2 A Normal [facility] Comment on above: Performed By: #### 3 0965 #### [facility] [address] [place] [address], [place] UNIT ID 1 [id number] Normal [facility] Comment on above: Performed By: #### 3 0965 #### [facility] [address] [place] [address], [facility] UNIT ID 2 [id number] Normal [facility] Comment on above: Performed By: #### 3 0965 #### [facility] [address] [place] [address], [facility] UNIT RH 1 Negative Normal [facility] Comment on above: Performed By: #### 3 0965 #### [facility] [address] [facility] [place] [address], [facility] UNIT RH 2 Negative Normal [facility] Comment on above: Performed By: #### 3 0965 #### [facility] [address] [facility] *MRSA/MSSA DNA NASALon 03-25 *MRSA/MSSA DNA NASAL Clinical Report: (D ) Specimen: NASAL SWAB Collected: 03/25/2021 10:21 Status: Final Last Updated: 03/27/2021 08:02 MSSA DNA (Final) Negative MRSA DNA (Final) Methicillin Resistant Staphylococcus aureus DNA Detected Normal [facility] Comment on above: Performed By: #### 3 1595 #### [facility] [address] [facility]. [address] ANTI C3 DATon 03-25-2021 ANTI C3 ZEENAT Negative Normal [facility] Comment on above: Performed By: #### 3 0965 #### [facility] [address] [facility] [place] [address], [facility] ANTI IGG DATon 03-25-2021 ANTI IGG ZEENAT Negative Normal [facility] Comment on above: Performed By: #### 3 0965 #### [facility] [address] [facility] [place] [address], [facility] ANTIBODY IDENTIFICATIONon ANTIBODY ID NCSA Normal [facility] Comment on above: Performed By: #### 3 0739 #### [facility] [address] [place] [address], [facility] APTTon 03-25-2021 aPTT Coag (Bld) [Time] 30.2 s Normal 25.0-35.0 [facility] Comment on above: Result Comment: ALL [...] By: #### 8 5499 #### [facility] [address] CBC W/DIFFon 03-25-2021 ABS IMM GRANS 0.0 10*3/uL Normal 0.0-0.2 [facility] Comment on above: Performed By: #### 5 0103 #### [facility] [address] ABS NEUTROPHILS 4.7 10*3/uL Normal 1.6-7.6 [facility] Comment on above: Performed By: #### 5 0103 #### [facility] [address] Basophils (Bld) [#/Vol] 0.1 10*3/uL Normal 0.0-0.2 [facility] Comment on above: Performed By: #### 5 0103 #### [facility] [address] Basophils/100 WBC (Bld) 0.7 % Normal 0.0-1.0 [facility] Comment on above: Performed By: #### 5 0103 #### [facility] [address] [place] [address], [facility] Eosinophils (Bld) [#/Vol] 0.1 10*3/uL Normal 0.0-0.5 [facility] Comment on above: Performed By: #### 5 0103 #### [facility] [address] [place] [address], [facility] Eosinophils/100 WBC (Bld) 1.6 % Normal 0.0-6.0 [facility] Comment on above: Performed By: #### 5 0103 #### [facility] [address] [facility] [place] [address], [facility] Erythrocyte distribution width (RBC) [Ratio] 12.8 % Normal 11.5-15.0 [facility] Comment on above: Performed By: #### 5 0103 #### [facility] [address] [facility] [place] [address], [facility] Hematocrit (Bld) [Volume fraction] 35.0 % Low 36.0-45.0 [facility] Comment on above: Performed By: #### 5 3 #### [facility] [address] [facility] [place] [address], [facility] Hemoglobin (Bld) [Mass/Vol] 11.6 g/dL Low 12.0-15.0 [facility] Comment on above: Performed By: #### 5 0103 #### [facility] [address] [facility] [place] [address], [facility] IMMATURE GRANS 0.3 % Normal 0.0-1.0 [facility] Comment on above: Performed By: #### 5 0103 #### [facility] [address] [facility] [place] [address], [facility] Lymphocytes (Bld) [#/Vol] 1.3 10*3/uL Normal 1.2-4.0 [facility] Comment on above: Performed By: #### 5 0103 #### [facility] [address] [facility] [place] [address], [facility] Lymphocytes/100 WBC (Bld) 19.2 % Low 20.0-45.0 [facility] Comment on above: Performed By: #### 5 0103 #### [facility] [address] MCH (RBC) [Entitic mass] 31.4 pg Normal 27.0-33.0 [facility] Comment on above: Performed By: #### 5 0103 #### [facility] [address] MCHC (RBC) [Mass/Vol] 33.1 g/dL Normal 32.0-35.0 [facility] Comment on above: Performed By: #### 5 0103 #### [facility] [address] MCV (RBC) [Entitic vol] 94.9 fL Normal 82.0-98.0 [facility] Comment on above: Performed By: #### 5 0103 #### [facility] [address] Monocytes (Bld) [#/Vol] 0.6 10*3/uL Normal 0.1-1.0 [facility] Comment on above: Performed By: #### 5 0103 #### [facility] [address] MONOS 8.4 % Normal 5.0-12.0 [facility] Comment on above: Performed By: #### 5 0103 #### [facility] [address] Neutrophils/100 WBC (Bld) 69.8 % Normal 40.0-72.0 [facility] Comment on above: Performed By: #### 5 0103 #### [facility] [address] [place] [address], [facility] Nucleated RBC/100 WBC (Bld) [Ratio] 0 % Normal 0-0 [facility] Comment on above: Performed By: #### 5 0103 #### [facility] [address] [place] [address], [facility] PLAT CNT 325 10*3/uL Normal 150-400 [facility] Comment on above: Performed By: #### 5 0103 #### [facility] [address] [facility] [place] [address], [facility] RBC (Bld) [#/Vol] 3.69 10*6/uL Low 3.80-5.00 [facility] Comment on above: Performed By: #### 5 0103 #### [facility] [address] [place] [address], [facility] WBC (Bld) [#/Vol] 6.67 10*3/uL Normal 4.00-10.60 [facility] Comment on above: Performed By: #### 5 0103 #### [facility] [address] [place], [place] [id number] [place] [address] CHEST AND LATERALon 03-25-20 21 CHEST AND LATERAL [facility] Department of Radiology [address] [place], [place] [id number] Patient Name: SJ BREWSTER : 1950 Sex: F Age: Race: White Pt. 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 Electronically signed: Jero Germain. Transcribed by: [email or web address], User Resident: MU MOSSE Electronically Signed by: JERO GERMAIN @ 03/25/2021 11:41 AM I personally read this/these film(s) with this resident Normal [facility] Comment on above: Order Comment: evalu ate COMP METABOLIC PANELon 03-25 Albumin [Mass/Vol] 4.4 g/dL Normal 3.5-5.7 [facility] Comment on above: Performed By: #### 0 0121 ####[facility] [facility] [place] [address], [facility] ALKALINE PHOSPH 52 IU/L Normal 34-104 [facility] Comment on above: Performed By: #### 0 0121 ####[facility] [facility] [place] [address], [facility] ALT [Catalytic activity/Vol] 12 U/L Normal 7-52 [facility] Comment on above: Performed By: #### 0 0121 ####[facility] [place] [address], [facility] AST [Catalytic activity/Vol] 13 U/L Normal 13-39 [facility] Comment on above: Performed By: #### 0 0121 ####[facility] [place] [address], [place] Bilirubin [Mass/Vol] 0.3 mg/dL Normal 0.3-1.0 [facility] Comment on above: Performed By: #### 0 0121 ####[facility] [place] [address], [place] Calcium [Mass/Vol] 9.7 mg/dL Normal 8.6-10.3 [facility] Comment on above: Performed By: #### 0 0121 ####[facility] [place] [address], [facility] Chloride [Moles/Vol] 104 mmol/L Normal 98-107 [facility] Comment on above: Performed By: #### 0 0121 ####[facility] [place] [address], [facility] CO2 [Moles/Vol] 30 mmol/L Normal 21-31 [facility] Comment on above: Performed By: #### 0 0121 ####[facility] [id number], [facility] Creatinine [Mass/Vol] 0.76 mg/dL Normal 0.60-1.20 [facility] Comment on above: Performed By: #### 0 0121 ####[facility] [place] [address], [facility] GFR/1.73 sq M.predicted among blacks MDRD (S/P/Bld) [Vol rate/Area] mL/min/{1.73_m2} Normal >60 [facility] Comment on above: Performed By: #### 0 0121 ####[facility] [facility] [place] [address], [facility] GFR/1.73 sq M.predicted among non-blacks MDRD (S/P/Bld) [Vol rate/Area] mL/min/{1.73_m2} Normal >60 [facility] Comment on above: Performed By: #### 0 0121 ####[facility] [facility] [place] [address], [place] Glucose [Mass/Vol] 112 mg/dL High 70-100 [facility] Comment on above: Performed By: #### 0 0121 ####[facility] [facility] [place] [address], [place] Potassium [Moles/Vol] 5.1 mmol/L Normal 3.5-5.1 [facility] Comment on above: Performed By: #### 0 0121 ####[facility] [facility] [place] [address], [facility] Protein [Mass/Vol] 7.5 g/dL Normal 6.0-8.3 [facility] Comment on above: Performed By: #### 0 0121 ####[facility] [facility] [place] [place] [address], [place] Sodium [Moles/Vol] 140 mmol/L Normal 136-145 [facility] Comment on above: Performed By: #### 0 0121 ####[facility] [facility] [place] [address], [place] Urea nitrogen [Mass/Vol] 10 mg/dL Normal 7-25 [facility] Comment on above: Performed By: #### 0 0121 ####[facility] [place] [address], [place] HEMOGLOBIN A1Con 03-25-2021 Glucose [Moles/Vol] 117 mmol/L Normal [facility] Comment on above: Performed By: #### 3 1791 ####[facility] HbA1c (Bld) [Mass fraction] 5.7 % Normal 4.0-6.0 [facility] Comment on above: Performed By: #### 3 179 ####[facility] PROTHROMBIN TIMEon 1 INR Coag (PPP) [Relative time] 1.05 {INR} Normal 0.91-1.16 [facility] Comment on above: Result Comment: ACCC [...] By: #### 8 5499 #### [facility] [address] [place] [address], [facility] PT Coag (PPP) [Time] 13.7 s Normal 12.3-14.8 [facility] Comment on above: Result Comment: ALL RESULTS MUST BE INTERPRETED WITH RESPECT TO BLOOD DRAWING ARTIFACT OR DILUTION ERROR OF ANTICOAGULANT AT THE TIME OF SAMPLING. Performed By: #### 8 5499 #### [facility] [address] [place] [address], [place] TYPE AND CROSSMATCHon 2020 ABO INTERPRETATION A Normal [facility] Comment on above: Performed By: #### 3 0965 #### [facility] [address] [place] [address], [place] RH INTERPRETATION Negative Normal [facility] Comment on above: Performed By: #### 3 0965 #### [facility] [address] [place] [address], [place] URINALYSIS REFLEXon 03-25-20 21 Appearance (U) SL CLOUDY Abnormal CLEAR [facility] Comment on above: Performed By: #### 3 0965 #### [facility] [address] [place] [address], [place] Bilirubin Ql (U) Negative Normal NEGATIVE [facility] Comment on above: Performed By: #### 3 0965 #### [facility] [address] [place] [address], [place] Color (U) YELLOW Normal YELLOW [facility] Comment on above: Performed By: #### 3 0965 #### [facility] [address] [place] [address], [place] Glucose Ql (U) Negative Normal NEGATIVE [facility] Comment on above: Performed By: #### 3 0965 #### [facility] [address] [place] [address], [place] Hemoglobin Ql (U) Negative Normal NEGATIVE [facility] Comment on above: Performed By: #### 3 0965 #### [facility] [address] [place] [address], [place] KETONE Negative Normal NEGATIVE [facility] Comment on above: Performed By: #### 3 0965 #### [facility] [address] [place] [address], [place] LEUK KEEGAN Negative Normal NEGATIVE [facility] Comment on above: Performed By: #### 3 0965 #### [facility] [address] [place] [address], [facility] MICRO NOT DONE Normal [facility] Comment on above: Result Comment: Micr oscopics not performed on urines with negative chemical reactions unless requested in original order Performed By: #### 3 0965 #### [facility] [address] Nitrite Ql (U) Negative Normal NEGATIVE [facility] Comment on above: Performed By: #### 3 0965 #### [facility] [address] pH (U) 7.0 [pH] Normal 5.0-8.0 [facility] Comment on above: Performed By: #### 3 0965 #### [facility] [address] Protein Ql (U) Negative Normal NEGATIVE [facility] Comment on above: Performed By: #### 3 0965 #### [facility] [address] SPEC GRAV 1.014 Low 1.015-1.020 [facility] Comment on above: Performed By: #### 3 0965 #### [facility] [address] Cardiovascular Lab Reporton 03-18-2021 Cardiovascular Lab Report [facility] Patient Name: Ney [facility] E MR #: [id number] Department of Physician: Taco Regalado M.D. Division of Service Date: 03/17/2021 Cardiology Birthdate: 1950 Adult Cardiovascular Room #: Services [place] [address] Cardiovascular Laboratory Report FINAL IMPRESSIONS: 1. 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 2. Normal global left ventricular systolic function. 3. Normal right-sided heart pressures and wedge pressure. 4. Normal cardiac output/cardiac index. Pressured and artery aneurysms. 5. Vkrhdqeo-ba-zppjcf systemic hypertension. RECOMMENDATIONS: 1. Consult Cardiothoracic Surgery for coronary artery bypass graft surgery. 2. Aggressive cardiovascular risk factor modification. 3. Optimization of medical management; aspirin, high-intensity statin therapy, which is not tolerated - will add Zetia and consider addition of a PCSK9 inhibitor, beta mariah, and angiotensin-convertin g enzyme inhibitor. 4. Follow up with Dr. Drake in the next 1 to 2 months. [...] femoral vein and artery was obtained. A 6-Moldovan 11 cm sheath was placed in each. [...] was elected to conclude the procedure. A 6-Moldovan MynxGrip closure device was deployed per protocol [...] moderate-sized branching second diagonal shows a 70% cesesjpb-jk-kmt vessel stenosis. Left circumflex coronary artery. This [...] INDICATIONS: Unstable angina. Electronically Signed by: Janay Drake M.D. 03/19/2021 10:59 A Janay Drake M.D. Date Dict: 03/17/2021/02:19 P/Janay Drake M.D. Date Trans: 03/18/2021 02:36 A/refugio [id number] cc: Dontae Uribe D.O. [address] [place] [id number] Agustin Valencia D.O. [address] [facility] [address] [place] [facility] Consent for COVID Vaccineon 12-29-2020 SARS-CoV-2 (COVID-19) RNA EDA+probe Ql (Unsp spec) [id number]#1 .00CD:127 [facility] Consent for COVID Vaccineon 12-06-2020 SARS-CoV-2 (COVID-19) RNA EDA+probe Ql (Unsp spec) [id number]# 1.00CD:127 [facility] Consent for Treatmenton 11-18 Consent for Treatment [id number]# 1.00CD:127 [facility] Coding Summary.on 12-04-2020 Coding Summary. CODING DATE: 12/04/2020 FINAL [facility] DSC STATUS: PAYOR: Medicare APC DESCRIPTION [...] Sarah Bernal Date Saved: 12/04/2020 03:11 pm [facility] Vital Signs Date Time Vital Sign Value Performing Clinician Facility 05-30-2024 16:08-0400 Body height 168.91 cm [facility] 05-30-2024 [id number] Body mass index (BMI) [Ratio] 18.1 kg/m2 [facility] 05-30-2024 [id number]:[id number] Body weight 51.82 kg [facility] 05-30-2024 16:08-0400 Diastolic blood pressure 83 mm[Hg] [facility] 05-30-2024 16:08-0400 Heart rate 85 /min [facility] 05-30-2024 [id number] Respiratory rate 12 /min [facility] 05-30-2024 16:08-0400 Systolic blood pressure 175 mm[Hg] [facility] 05-08-2024 15:26-0400 Body height 168.91 cm [facility] 05-08-2024 15:26-0400 Body mass index (BMI) [Ratio] 18 kg/m2 [facility] 05-08-2024 15:26-0400 Body weight 51.48 kg [facility] 05-08-2024 15:26-0400 Diastolic blood pressure 84 mm[Hg] [facility] 05-08-2024 15:26-0400 Heart rate 70 /min [facility] 05-08-2024 15:26-0400 Respiratory rate 12 /min [facility] 05-08-2024 15:26-0400 Systolic blood pressure 180 mm[Hg] [facility] 04-14-2024 08:48-0400 Body height 168.91 cm [facility] 04-14-2024 08:48-0400 Body mass index (BMI) [Ratio] 18 kg/m2 [facility] 04-14-2024 08:48-0400 Body weight 51.42 kg [facility] 04-14-2024 08:48-0400 Diastolic blood pressure 89 mm[Hg] [facility] 04-14-2024 08:48-0400 Heart rate 71 /min [facility] 04-14-2024 08:48-0400 Respiratory rate 12 /min [facility] 04-14-2024 08:48-0400 Systolic blood pressure 139 mm[Hg] [facility] 01-25-2024 10:30-0400 Body height 168.91 cm [facility] 01-25-2024 10:30-0400 Body mass index (BMI) [Ratio] 18.5 kg/m2 [facility] 01-25-2024 10:30-0400 Body weight 52.84 kg [facility] 01-25-2024 10:30-0400 Diastolic blood pressure 82 mm[Hg] [facility] 01-25-2024 10:30-0400 Heart rate 68 /min [facility] 01-25-2024 10:30-0400 Respiratory rate 12 /min [facility] 01-25-2024 10:30-0400 Systolic blood pressure 130 mm[Hg] [facility] 12-24-2023 12:32-0400 Body height 168.91 cm [facility] 12-24-2023 12:32-0400 Body mass index (BMI) [Ratio] 18.4 kg/m2 [facility] 12-24-2023 12:32-0400 Body weight 52.61 kg [facility] 12-24-2023 12:32-0400 Diastolic blood pressure 80 mm[Hg] [facility] 12-24-2023 12:32-0400 Heart rate 76 /min [facility] 12-24-2023 12:32-0400 Respiratory rate 12 /min [facility] 12-24-2023 12:32-0400 Systolic blood pressure 182 mm[Hg] [facility] 12-15-2023 13:34-0400 Body height 168.91 cm [facility] 12-15-2023 13:34-0400 Body mass index (BMI) [Ratio] 18.4 kg/m2 [facility] 12-15-2023 13:34-0400 Body weight 52.61 kg [facility] 12-15-2023 13:34-0400 Diastolic blood pressure 80 mm[Hg] [facility] 12-15-2023 13:34-0400 Heart rate 77 /min [facility] 12-15-2023 13:34-0400 Respiratory rate 12 /min [facility] 12-15-2023 13:34-0400 Systolic blood pressure 135 mm[Hg] [facility] 08-16-2023 08:30-0500 Body height 168.91 cm Dontae Ball Other [employer] [facility] Other 08-16-2023 08:30-0500 Body mass index (BMI) [Ratio] 18.31 kg/m2 Dontae Ball Other [employer] [facility] Other 08-16-2023 08:30-0500 Body weight 52.25 kg Dontae Ball Other [employer] [facility] Other 08-16-2023 08:30-0500 Diastolic blood pressure 76 mm[Hg] Dontae Ball Other [employer] Other 08-16-2023 08:30-0500 Respiratory rate 12 /min Dontae Ball Other [employer] Other 08-16-2023 08:30-0500 Systolic blood pressure 155 mm[Hg] Dontae Ball Other [employer] Other 05-12-2023 13:45-0400 Body height 168.91 cm Dontae Ball Other [employer] Other 05-12-2023 13:45-0400 Body mass index (BMI) [Ratio] 18.44 kg/m2 Dontae Ball Other [employer] Other 05-12-2023 13:45-0400 Body weight 52.62 kg Dontae Ball Other [employer] Other 05-12-2023 13:45-0400 Diastolic blood pressure 88 mm[Hg] Dontae Ball Other [employer] Other 05-12-2023 13:45-0400 Respiratory rate 12 /min Dontae Ball Other [employer] Other 05-12-2023 13:45-0400 Systolic blood pressure 138 mm[Hg] Dontae Ball Other [employer] Other 04-22-2023 13:30-0400 Body height 168.91 cm Travis Richter Other [employer] Other 04-22-2023 13:30-0400 Body mass index (BMI) [Ratio] 18.28 kg/m2 Travis Richter Other [employer] Other 04-22-2023 13:30-0400 Body weight 52.16 kg Travis Richter Other [employer] Other 04-22-2023 13:30-0400 Diastolic blood pressure 78 mm[Hg] Travis Richter Other [employer] Other 04-22-2023 13:30-0400 Systolic blood pressure 137 mm[Hg] Travis Richter Other [employer] Other 03-18-2023 09:15-0400 Body height 168.91 cm Dontae Ball Other [employer] Other 03-18-2023 09:15-0400 Body mass index (BMI) [Ratio] 18.25 kg/m2 Dontae Ball Other [employer] Other 03-18-2023 09:15-0400 Body weight 52.07 kg Dontae Ball Other [employer] Other 03-18-2023 09:15-0400 Diastolic blood pressure 77 mm[Hg] Dontae Ball Other [employer] Other 03-18-2023 09:15-0400 Respiratory rate 12 /min Dontae Ball Other [employer] Other 03-18-2023 09:15-0400 Systolic blood pressure 145 mm[Hg] Dontae Ball Other [employer] Other 04-21-2022 15:15-0400 Body height 168.91 cm Travis Richter Other [employer] Other 08-02-2022 15:15-0400 Body mass index (BMI) [Ratio] 18.28 kg/m2 Travis Richter Other [facility] Other 04-21-2022 15:15 Body weight 52.16 kg Travis Richter Other [facility] Other Encounters Encounter Date Encounter Type Care Provider Facility Start: 05-30-2024 End: 05-30-2024 ambulatory [facility] Work Phone: Start: 05-30-2024 End: 05-30-2024 Patient encounter procedure [facility] Physician [facility] Work Phone: Start: 05-08-2024 End: 05-08-2024 ambulatory [facility] Work Phone: Start: 05-08-2024 End: 05-08-2024 Patient encounter procedure Formerly [facility] Physician [facility] Work Phone: Start: 04-28-2024 End: 04-28-2024 ambulatory [facility] Work Phone: Start: 04-28-2024 End: 04-28-2024 Patient encounter procedure Formerly [facility] Physician [facility] Work Phone: Start: 04-14-2024 End: 04-14-2024 ambulatory [facility] Work Phone: Start: 04-14-2024 End: 04-14-2024 Patient encounter procedure Former[facility] Phys[facility] Work Phone: Start: 03-28-2024 End: 03-28-2024 ambulatory [facility] Work Phone: Start: 03-28-2024 End: 03-28-2024 Patient encounter procedure [facility] Work Phone: Start: 03-01-2024 End: 03-01-2024 ambulatory PAM D ZAHLER Not Available Start: 02-21-2024 End: 02-21-2024 ambulatory [facility] Work Phone: Start: 02-21-2024 End: 02-21-2024 Patient encounter procedure [facility] Phys[facility] Work Phone: Start: 02-16-2024 Non-patient / Non-visit [facility] Work Phone: Start: 02-02-2024 End: 02-02-2024 ambulatory [facility] Start: 01-28-2024 Non-patient / Non-visit [facility] Work Phone: Start: 01-25-2024 End: 01-25-2024 ambulatory [facility] Work Phone: Start: 01-25-2024 End: 01-25-2024 Patient encounter procedure [facility] Work Phone: Start: 01-05-2024 End: 01-05-2024 [facility] Start: 12-24-2023 End: 12-24-2023 ambulatory [facility] Work Phone: Start: 12-24-2023 End: 12-24-2023 Patient encounter procedure [facility] Work Phone: Start: 12-22-2023 End: 12-22-2023 ambulatory [facility] Work Phone: Start: 12-22-2023 End: 12-22-2023 Patient encounter procedure [facility] Work Phone: Start: 12-15-2023 End: 12-15-2023 ambulatory [facility] Work Phone: Start: 12-15-2023 End: 12-15-2023 Patient encounter procedure [facility] Work Phone: Start: 12-15-2023 End: 12-15-2023 ambulatory [facility] Start: 12-15-2023 Non-patient / Non-visit [facility] Work [facility]: Start: 12-08-2023 End: 12-08-2023 ambulatory [facility] Work Phone: Start: 12-08-2023 End: 12-08-2023 Patient encounter procedure [facility] Work Phone: Start: 12-07-2023 Non-patient / Non-visit [facility] Work Phone: Start: 12-01-2023 End: 12-01-2023 Patient encounter procedure [facility] Work Phone: Start: 11-30-2023 End: 11-30-2023 Patient encounter procedure [facility]ician [facility] Work Phone: Start: 11-26-2023 Non-patient / Non-visit [facility] Work Phone: Start: 11-23-2023 Non-patient / Non-visit [facility] Work Phone: Start: 08-19-2023 End: 08-19-2023 ambulatory Dontae Asuncion Other [employer] Other Start: 08-19-2023 Telephone encounter Dontae Uribe [facility] Start: 08-16-2023 End: 08-16-2023 ambulatory Dontae Ball Other [employer] Other Start: 08-16-2023 Patient encounter procedure Dontae Ball [facility] Start: 05-27-2023 End: 05-27-2023 ambulatory Dontae Ball Other [employer] Other Start: 05-27-2023 Telephone encounter Dontae Uribe [facility] Start: 05-12-2023 End: 05-12-2023 ambulatory Dontae Uribe Other [employer] Other Start: 05-12-2023 Office outpatient visit 15 minutes Dontae Ball [facility] Start: 04-22-2023 End: 04-22-2023 ambulatory Travis Richter Other [employer] Other Start: 04-22-2023 Office outpatient visit 15 minutes rTavis Richter [facility] Start: 03-18-2023 End: 03-18-2023 ambulatory Dontae Uribe Other [employer] Other Start: 03-18-2023 Office outpatient visit 15 minutes Dontae Ball [facility] Start: 03-12-2023 End: 03-12-2023 ambulatory Dontae Uribe Other [employer] Other Start: 03-12-2023 Office outpatient visit 15 minutes Dontae Ball [facility] Start: 03-09-2023 End: 03-09-2023 ambulatory Dontae Uribe Other [employer] Other Start: 03-09-2023 Telephone encounter Dontea Uribe [facility] Start: 01-14-2023 End: 01-14-2023 ambulatory Dontae Uribe Other [employer] Other Start: 01-14-2023 Telephone encounter Dontae Uribe [facility] Start: 01-11-2023 End: 01-11-2023 ambulatory Dontae Uribe Other [employer] Other Start: 01-11-2023 Office outpatient visit 15 minutes Dontae Ball [facility] Start: 11-24-2022 End: 11-25-[address] DONTAE URIBE Facility:[facility] Start: 10-16-2022 End: 10-16-2022 ambulatory Dontae Uribe Other [employer] Other Start: 10-16-2022 Office outpatient visit 15 minutes Dontae Asuncion [facility] Start: 10-16-2022 Telephone encounter Dontae Asuncion [facility] Start: 10-06-2022 End: 10-07-2022 ambulatory TOMÁS DAS Facility:[facility] Start: 09-15-2022 Adult health examination Dontae Uribe Other [employer] Other Start: 07-03-2022 ambulatory TOMÁS DAS Facility:[facility] Start: 04-21-2022 End: 04-21-2022 ambulatory Travis Richter Other [employer] Other Start: 04-21-2022 Office outpatient visit 15 minutes Travis Neelam [facility] Start: 04-14-2022 End: 04-15-[address] JANAY DRAKE Facility:[facility] Start: 03-05-2022 End: 03-06-[address] JANAY DRAKE Facility:[facility] Start: 11-27-2021 End: 11-28-[address] DONTAE URIBE Facility:[facility] Start: 04-02-2021 End: 04-06-2021 Evaluation and management of inpatient FELISA MASROANA LAURA Facility:[facility] Start: 03-25-2021 End: 03-26-2021 ambulatory FELISA MASROOR Facility:[facility] Start: 03-17-2021 End: 03-18-2021 ambulatory JANAY DRAKE Facility:[facility] Procedures Date Procedure Procedure Detail Performing Clinician [...] By: #### [id number] #### [facility] [address] [place] [address], [facility] Coronary artery bypa ss graft Dontae Uribe Other Depression screening Kushal Uribe Other Screening for malign ant neoplasm of breast Dontae Uribe Other Plan of Treatment Date Care Activity Detail Author MR Brain WO contrast [facility] MR Lumbar spine WO contrast [facility] Patient Education Low back pain in adults [facility] Work Phone: US.doppler Carotid a rteries - bilateral [facility] XR Lumbar spine Views [facility] XR Pelvis and Hip - bilateral Views [facility] Immunizations Immunization Date Immunization Notes Care Provider Fa cility 07-27-2023 influenza virus vaccine, unspecified formulation [facility] 07-27-2023 influenza, high dose seasonal, preservative-free Dontae Uribe Other [employer] Other 09-17-2021 COVID-19 Vaccine Pfi zer - Documentation Purposes Only Dontae Uribe Other [facility] 08-29-2021 COVID-19 mRNA-1273 (Moderna) [facility] 12-20-2020 COVID-19 mRNA, Comirnaty (Pfizer) [facility] 11-29-2020 COVID-19 mRNA, Comirnaty (Pfizer) [facility] 01-14-2018 diphtheria, tetanus toxoids and acellular pertussis vaccine, unspecified formulation Dontae Uribe Other [facility] Payers Date Payer Category Payer Medicare [id number] 1958 Self-pay [id number] 1958 Unknown [id number] 1950 Unknown [id number] 2.16.8 [id number] 1950 Unknown [id number] 2.16.8 [id number] 1950 Unknown [id number] 2.16.8 [id number] 1950 Unknown [id number] 2.16.84 [id number] 1950 Unknown [id number] 2.16.84 [id number] 1950 Unknown [id number] 2.16.84 [id number] 1950 Unknown [id number] 2.16.84 [id number] 1950 Unknown [id number] 2.16.84 [id number] Self-pay Self Pay [id number] Unknown [id number] 2.16.84 [id number] Unknown [id number] 2.16.84 [id number] Unknown [facility] [id number] 48 [id number] Social History Date Type Detail Facility Unknown if ever smoked [employer] Other Sex Assigned At Sex Assigned At Bir th [employer] Other Start: 03-10-2022 Tobacco smoking status NHIS Ex-smoker (finding) [facility] Start: 1950 Sex Assigned At Female F [facility] Clinical Notes 09-20-2012 to 02-02-2024 Note Date & Type Note Facility 02-02-2024 Note [facility] Cardiology Clinic Note Chief Complaint: Patient here for 1 mo follow up event monitor and chest pain. She states all her symptoms are improving, and are becoming less frequent. Says she's starting to feel like herself again. Her BP this morning at home was 134/72. HPI: Sj Brewster is a 73 y.o. [...] Father Alzheimer's disease Father Allergies Cephalosporins, Penicillins, Edxcsbp-rms-jdv reductase inhibitors, and Ciprofloxacin Medications Current Outpatient [...] tablet, Rfl: 3 Last Recorded Vitals BP 172/90 (BP Location: Left arm, Patient Position: Sitting) Pulse 74 Ht 1.676 m (5' 6 ) Wt 52.6 kg (116 lb) SpO2 97% BMI 18.72 kg/m??? Physical Examination: GENERAL: alert and oriented [...] Felisa Hyatt MD Echocardiogram 06/03/2021: Global left v (more content not included)... [facility] 01-05-2024 Note [facility] Cardiology Clinic Note Chief Complaint: Patient here [...] Father Alzheimer's disease Father Allergies Cephalosporins, Penicillins, Yknlxja-wzy-xna reductase inhibitors, and Ciprofloxacin Medications Current Outpatient [...] vein harvesting of (more content not included)... [facility] 12-15-2023 Note [facility] Cardiology Clinic Note Chief Complaint: Patient here [...] Father Alzheimer's disease Father Allergies Cephalosporins, Penicillins, Huftkef-wwj-qna reductase inhibitors, and Ciprofloxacin Medications Current Outpatient [...] ventricle is normal (more content not included)... [facility] 08-16-2023 Evaluation note Encounter Date Diagnosis [...] are maintaining regular scheduled appts with their clinical editor. Jul, Pure hypercholesterolemia (ICD-10 - E78.00) Instructed [...] High risk medication use (ICD-10 - Z79.899) [employer] Other 09-07-2023 Evaluation note* Encounter Date Diagnosis Assessment Notes Treatment Notes Treatment Clinical Notes May, Acute cough (ICD-10 - R05.1) [employer] Other 08-23-2023 Evaluation note* Encounter Date Diagnosis [...] 135/85 May be increased due to pain [employer] Other 08-03-2023 Evaluation note* Encounter Date Diagnosis [...] is taking OTC probiotics RTO 1 year [employer] Other 06-29-2023 Evaluation note* Encounter Date Diagnosis [...] quality. Continue LABA/ICS and SHERLYN as needed [employer] Other 06-23-2023 Evaluation note* Encounter Date Diagnosis [...] SHERLYN to q 4 hours as needed [employer] Other 06-20-2023 Evaluation note* Encounter Date Diagnosis Assessment Notes Treatment Notes Treatment Clinical Notes Feb, Mild intermittent asthma with acute exacerbation (ICD-10 - J45.21) [employer] Other 04-27-2023 Evaluation note* Encounter Date Diagnosis Assessment Notes Treatment Notes Treatment Clinical Notes Dec, Acute non-recurrent maxillary sinusitis (ICD-10 - J01.00) [employer] Other 04-24-2023 Evaluation note* Encounter Date Diagnosis [...] or severe dyspnea. Restart Prednisone as needed [employer] Other 01-27-2023 Evaluation note* Encounter Date Diagnosis [...] to continue exercise and AHA diet plan. [employer] Other 01-27-2023 Evaluation note* Encounter Date Diagnosis Assessment Notes Treatment Notes Treatment Clinical Notes Sep, Acute non-recurrent maxillary sinusitis (ICD-10 - J01.00) [employer] Other 08-02-2022 Evaluation note* Encounter Date Diagnosis Assessment Notes Treatment Notes Treatment Clinical Notes Apr, Dysphagia (ICD-10 - R13.10) Apr, Schatzki's ring (ICD-10 - Q39.4) Apr, Constipation (ICD-10 - K59.00) CONTINUE MIRALAX PRN CONTINUE COLACE WITHOUT CHANGE RTO ONE YEAR Apr, Abdominal pain (ICD-10 - R10.9) CONTINUE BENTYL WITHOUT CHANGE [employer] Other 08-18-2021 NoteMR#: [id number] I [facility] Pt. Name: Sj Brewster Admitted: 04/02/2021 [...] Shoemaker CNP Date Trans: 05/07/2021 03:44 P/refugio [id number] cc: Dontae Uribe D.O. [address] [place] [address], [address] [facility] [id number] general Narrative - Reported* Type [...] Total Hysterectomy 1978 Hospitalization History Appendectomy 1968 [facility] Other [facility] Other Evaluation note* Diagnosis Onset Date Resolution Status Mild persistent asthma with acute exacerbation acute Acute sinusitis noneactive [facility] Work Phone: Evaluation note* Diagnosis Onset Date Resolution Status Mild persistent asthma with acute exacerbation acute Acute sinusitis noneactive ASHD (arteriosclerotic heart disease) acute Asthma acute Gastroesophageal reflux dise ase with esophagitis without hemorrhage acute Hyperlipidemia type II acute Paroxysmal atrial fibrillation acute [facility] Work Phone: Evaluation note* Diagnosis Onset Date Resolution Status Mild persistent asthma with acute exacerbation acute Acute sinusitis noneactive ASHD (arteriosclerotic heart disease) acute Asthma acute Gastroesophageal reflux dise ase with esophagitis without hemorrhage acute Hyperlipidemia type II acute Paroxysmal atrial fibrillation acute Pernicious anemia acute [facility] Work Phone: evaluation note* Diagnosis Onset Date Resolution Status Mild [...] acute Hypertension acute [facility]normal [facility]* Diagnosis Onset Date Resolution Status ASHD (arteriosclerotic heart disease) acute Dizziness acute Headache acute Hypertension acute Abnormal stress test noneact [facility] Work Phone: evaluation note* Diagnosis Onset Date Resolution Status ASHD (arteriosclerotic heart disease) acute Dizziness acute Headache acute Hypertension acute Abnormal stress test noneact sang ASHD (arteriosclerotic heart disease) acute Asthma acute Gastroesophageal reflux dise ase with esophagitis without hemorrhage acute Hypercholesterolemia acute Hypertension acute Paroxysmal atrial fibrillation acute Pernicious anemia acute [facility] Work Phone: Evaluation note* Diagnosis Onset Date Resolution Status ASHD (arteriosclerotic heart disease) acute Asthma acute Gastroesophageal reflux dise ase with esophagitis without hemorrhage acute Hypercholesterolemia acute Hypertension acute Paroxysmal atrial fibrillation acute Pernicious anemia acute [facility] Work Phone: Evaluation note* Diagnosis Onset Date Resolution Status ASHD (arteriosclerotic heart disease) acute Asthma acute Gastroesophageal reflux dise ase with esophagitis without hemorrhage acute Hypercholesterolemia acute Hypertension acute Paroxysmal atrial fibrillation acute Pernicious anemia acute Acute bronchitis due to other specified organisms acute Mild persistent asthma with acute exacerbation acute Low back pain acute Lumbar spondylosis acute [facility] Work Phone: [facility] general Narrative - Reported* Type Description Date [...] Medical History Mild intermittent asthma with ac [place] exacerbation Medical History Eczema, dyshidrotic Medical History [...] Total Hysterectomy 1979 Hospitalization History Appendectomy 1969 [employer] [facility] general Narrative - Reported* Type Description Date [...] Medical History Mild intermittent asthma with ac [place] exacerbation Medical History Eczema, dyshidrotic Medical History [...] Total Hysterectomy 1979 Hospitalization History Appendectomy 1969 [employer] Other Summary Purpose Family History Relationship Condition Age at Onset Recorded Date/T jeanne Not Specified Myocardial infarction Unknown father Myocardial infarction Unknown father Unknown Not Specified Unknown Relationship Condition Age at Onset Recorded Date/T jeanne mother Myocardial infarction Unknown father Myocardial infarction Unknown father Unknown mother Unknown Advance Directives Advance Directive Response Recorded Date/ Time Advance Directives No June 24, 2017 2:52pm Chief Complaint and Reason for Visit Chief Complaint Amb Documentation sinuses- [phone] B-12 Shot B-12 Shot Reason for Visit Mild persistent asth ma with acute exacerbation Acute sinusitis Chief Complaint Amb Documentation sinuses- [phone] B-12 Shot B-12 Shot 4 month follow up Reason for Visit Mild persistent asth ma with acute exacerbation Acute sinusitis ASHD (arteriosclerotic heart disease) Asthma Gastroesophageal reflux disease with esophagitis without hemorrhage Hyperlipidemia type II Paroxysmal atrial fibrillation Chief Complaint Amb Documentation sinuses- [phone] B-12 Shot B-12 Shot 4 month follow up B-12 SHOT Reason for Visit Mild persistent asth ma with acute exacerbation Acute sinusitis ASHD (arteriosclerotic heart disease) Asthma Gastroesophageal reflux disease with esophagitis without hemorrhage Hyperlipidemia type II Paroxysmal atrial fibrillation Pernicious anemia Chief Complaint Amb Documentation sinuses- [phone] B-12 Shot B-12 Shot 4 month follow up B-12 SHOT test results Reason for Visit Mild persistent asth ma with acute exacerbation Acute sinusitis ASHD (arteriosclerotic heart disease) Asthma Gastroesophageal reflux disease with esophagitis without hemorrhage Hyperlipidemia type II Paroxysmal atrial fibrillation Pernicious anemia Chief Complaint Amb Documentation sinuses- [phone] B-12 Shot B-12 Shot 4 month follow [...] disease) Dizziness Headache Hypertension Abnormal stress test Chief Complaint Amb Documentation sinuses- [phone] B-12 Shot B-12 Shot 4 month follow up B-12 SHOT test results continued dizziness B12 Shot Reason for Visit Mild persistent asth ma with acute exacerbation Acute sinusitis ASHD (arteriosclerotic heart disease) Asthma Gastroesophageal reflux disease with esophagitis without hemorrhage Hyperlipidemia type II Paroxysmal atrial fibrillation Pernicious anemia ASHD (arteriosclerotic heart disease) Hypertension Abnormal stress test Chest pain ASHD (arteriosclerotic heart disease) Dizziness Headache Hypertension Abnormal stress test Chief Complaint continued dizziness B12 Shot B12 Shot Reason for Visit ASHD (arteriosclerot ic heart disease) Dizziness Headache Hypertension Abnormal stress test Chief Complaint continued dizziness B12 Shot B12 Shot 4 Month Check Up Reason for Visit ASHD (arteriosclerot ic heart disease) Dizziness Headache Hypertension Abnormal stress test ASHD (arteriosclerotic heart disease) Asthma Gastroesophageal reflux disease with esophagitis without hemorrhage Hypercholesterolemia Hypertension Paroxysmal atrial fibrillation Pernicious anemia Chief Complaint B12 Shot B12 Shot 4 Month Check Up B12 Shot Reason for Visit ASHD (arteriosclerot ic heart disease) Asthma Gastroesophageal reflux disease with esophagitis without hemorrhage Hypercholesterolemia Hypertension Paroxysmal atrial fibrillation Pernicious anemia Chief Complaint B12 Shot B12 Shot 4 Month Check Up B12 Shot sinus pressure Reason for Visit ASHD (arteriosclerot ic heart disease) Asthma Gastroesophageal reflux disease with esophagitis without hemorrhage Hypercholesterolemia Hypertension Paroxysmal atrial fibrillation Pernicious anemia Chief Complaint B12 Shot 4 Month Check Up B12 Shot sinus pressure Sciatica pain/ B12 shot Reason for Visit ASHD (arteriosclerot ic heart disease) Asthma Gastroesophageal reflux disease with esophagitis without hemorrhage Hypercholesterolemia Hypertension Paroxysmal atrial fibrillation Pernicious anemia Acute bronchitis due to other specified organisms Mild persistent asthma with acute exacerbation Low back pain Lumbar spondylosis Additional Source Comments INFORMATION SOURCE (unrecogn ized section and content) DATE CREATED AUTHOR 03/22/2021 [employer] [facility] DATE CREATED AUTHOR AUTHOR'S ORGANIZ ATION 05/09/2021 [facility] DATE CREATED AUTHOR AUTHOR'S ORGANIZ ATION 03/12/2022 [facility] DATE CREATED AUTHOR AUTHOR'S ORGANIZ ATION 11/26/2022 [facility] DATE CREATED AUTHOR AUTHOR'S ORGANIZ ATION 02/04/2024 [facility] DATE CREATED AUTHOR AUTHOR'S ORGANIZ ATION 03/02/2024 [facility] EPIC REASON FOR VISIT (unrecogniz ed section and content) PATIENT HERE FOR FOLLOW UP T O EGD ON 03/10/2022 FOR DYSPHAGIA., SHE STOPPED LINZESS DUE TO COST, SHE IS HAPPY ON MIRALAX AND COLACE AND HER BOWELS ARE MOVING NORMALLYsinus congestionNo InformationSinuses- [phone], drainage, thick yellow mucus, left ear painmigraine, not feeling well sincemigraine, not feeling well sincePatient here for 1 yr follow upSciatic Nerve-LegNot Feeling [facility] results Care Teams (unrecognized sec tion and content) Team Status: Active Member Role Status Renate Uribe DO Primary Care Provider Active Team Status: Inactive Member Role Status Renate Uribe DO Primary Care Provide r, Attending Provider Active Start: March 28, 2024 End: March 28, 2024 Team Status: Inactive Member Role Status Renate Uribe DO Primary Care Provide r, Attending Provider Active Start: April 14, 2024 End: April 14, 2024 Team Status: Inactive Member Role Status Renate Uribe DO Primary Care Provide r, Attending Provider Active Start: April 28, 2024 End: April 28, 2024 Team Status: Inactive Member Role Status Renate Uribe DO Primary Care Provide r, Attending Provider Active Start: May 08, 2024 End: May 08, 2024 Team Status: Inactive Member Role Status Renate Uribe DO Primary Care Provide r, Attending Provider Active Start: May 30, 2024 End: May 30, 2024 Team Status: Active Member Role Status Renate Uribe DO Primary Care Provider Active Team Status: Active Member Role Status Renate Uribe DO Primary Care Provider Active Start: February 16, 2024 Janay Drake Attending Provider Active Start: February 16, 2024 Team Status: Inactive Member Role Status Renate Uribe DO Primary Care Provide r, Attending Provider Active Start: February 21, 2024 End: February 21, 2024 Team Status: Inactive Member Role Status Renate Uribe DO Primary Care Provide r, Attending Provider Active Start: March 28, 2024 End: March 28, 2024 Team Status: Inactive Member Role Status Dates Dontae Uribe , DO Primary Care Provide r, Attending Provider Active Start: April 14, 2024 End: April 14, 2024 Team Status: Inactive Member Role Status Renate Uribe , DO Primary Care Provide r, Attending Provider Active Start: April 28, 2024 End: April 28, 2024 Team Status: Inactive Member Role Status Renate Uribe , DO Primary Care Provide r, Attending Provider Active Start: January 25, 2024 End: January 25, 2024 Team Status: Active Member Role Status Renate Uribe DO Primary Care Provide r, Attending Provider Active Start: January 28, 2024 Team Status: Active Member Role Status Dates Dontae Uribe DO Primary Care Provider Active Start: November 23, 2023 POLLY Reece Attending Provider Active St art: November 23, 2023 Team Status: Active Member Role Status Renate Uribe DO Primary Care Provide r, Attending Provider Active Start: November 26, 2023 Team Status: Inactive Member Role Status Renate Uribe DO Primary Care Provide r, Attending Provider Active Start: November 30, 2023 End: November 30, 2023 Team Status: Inactive Member Role Status Renate Uribe DO Primary Care Provide r, Attending Provider Active Start: December 01, 2023 End: December 01, 2023 Team Status: Active Member Role Status Renate Uribe DO Primary Care Provide r, Attending Provider Active Start: December 07, 2023 Team Status: Inactive Member Role Status Renate Uribe DO Primary Care Provide r, Attending Provider Active Start: December 08, 2023 End: December 08, 2023 Team Status: Active Member Role Status Renate Uribe DO Primary Care Provide r, Attending Provider Active Start: December 15, 2023 Team Status: Inactive Member Role Status Renate Uribe DO Primary Care Provide r, Attending Provider Active Start: December 15, 2023 End: December 15, 2023 Team Status: Inactive Member Role Status Renate Uribe DO Primary Care Provide r, Attending Provider Active Start: December 22, 2023 End: December 22, 2023 Team Status: Inactive Member Role Status Renate Uribe DO Primary Care Provide r, Attending Provider Active Start: December 24, 2023 End: December 24, 2023 Team Status: Inactive Member Role Status Renate Uribe DO Primary Care Provide r, Attending Provider Active Start: May 08, 2024 End: May 08, 2024 Team Status: Inactive Member Role Status Dates Dontae Uribe , DO Primary Care Provide r, Attending Provider Active Start: May 30, 2024 End: May 30, 2024 Goals (unrecognized section and content) Goals [...] BE BASED ON THE PRIMARY CLINICAL RECORDS. [employer] provides no warranty or guarantee of the accuracy or completeness of information in this document.
== END 2024-06-01 08:30 | disposition home or self-care (01) ==
LOC: MRI 08:30
PROVIDERS: PCP Internal Medicine; Visit Provider Internal Medicine
DX: M47.816 Spondylosis without myelopathy or radiculopathy, lumbar region (principal); M54.50 Low back pain, unspecified; M51.36 Other intervertebral disc degeneration, lumbar region
CPT/HCPCS: 72148

== ENCOUNTER 2024-06-06 13:16 | Outpatient (OUT) | payer MEDICARE, SELFPAY ==
--- NOTE | 2024-06-06 | CONS_ITS ---
CONSULTATION DATE: 06/06/2024 TO: Dr. Uribe CHIEF COMPLAINT: Includes severe right lower back pain, right leg pain. HISTORY OF PRESENT ILLNESS: Review of systems, past medical/surgical history were obtained and documented on the health questionnaire and is available upon request. She is a 73-year-old female who reports having had pain in the above mentioned areas for several years; however, over the last several months, she has been having rapid progression of her pain symptoms that has altered her quality of life, level of functioning and sleep pattern, and she rates it 8/10, sharp in character, increased with activities such as standing, walking and performing transitioning maneuvers. She feels most comfortable in the semi-recumbent position. Denies any change in bowel and bladder habits, and reports some progressive tingling, numbness and weakness in the right lower extremity. Her PETER on today?s visit was 45%. She is unable to take nonsteroidal anti- inflammatory agents secondary to cardiac status. She is currently on Tylenol #3 half a pill daily p.r.n., combined with Extra Strength Tylenol p.r.n. EXAMINATION: Notable for patient having hypoesthesia along the right L4 and L5 dermatome with the right anterior tibialis, extensor hallucis and quadriceps 3/5 strength, depressed right quadriceps reflex. Straight leg raise equivocally positive at 90 degrees. She had nothing to suggest myelopathy in the lower extremities. IMPRESSION: Our impression is patient with chronic pain secondary to spinal stenosis with right L4 and L5 radiculopathy and myofascial spasm of the lumbar paravertebral muscle. RECOMMENDATIONS: I recommend the patient consider Zonegran 50 mg at h.s., aquatic therapy and to proceed with an L4-5 lumbar epidural steroid injection under fluoroscopic guidance. We will possibly add baclofen at a later date for myofascial dysfunction. As part of providing excellent, safe, comprehensive care, the following was completed at our patient's visit: 1. A medication reconciliation and review to ensure accurate knowledge of current/active medications, including asking our patients to inform us about any [id number] medications or herbal remedies/nutritional supplements/alternative remedies. 2. A review to specifically ensure our patients have had annual screening for: elevated body mass index (BMI, see intake chart for exact total), tobacco use, screening for depression, and screening for unhealthy alcohol use. When screening is concerning, patients are provided with education and the specific recommendation to discuss the concerning health issue and treatment options with their primary care provider. JESENIA
== END 2024-06-06 13:17 | disposition home or self-care (01) ==
LOC: PM 13:16
PROVIDERS: PCP Internal Medicine; Visit Provider Anesthesiology Pain Medicine
DX: M54.50 Low back pain, unspecified (principal); M48.062 Spinal stenosis, lumbar region with neurogenic claudication; M62.838 Other muscle spasm
CPT/HCPCS: G0463

== ENCOUNTER 2024-10-17 09:14 | Outpatient (RCR) | payer MEDICARE, SELFPAY | END 2024-11-24 15:29 | disposition home or self-care (01) | LOC: PT 09:14 | PROVIDERS: PCP Internal Medicine; Visit Provider Neurological Surgery | DX: M47.816 Spondylosis without myelopathy or radiculopathy, lumbar region (principal); M25.551 Pain in right hip | CPT/HCPCS: 97110; 97112; 97113; 97161 ==

== ENCOUNTER 2024-11-30 08:02 | Outpatient (OUT) | payer MEDICARE, SELFPAY ==
--- NOTE | 2024-11-30 08:04 | XR_ITS ---
The [address] [address] Patient Name: SJ HALL MRN: [id number] date: 1950 Sex: F Assigned Patient Location: [facility] Current Patient Location: [facility] Accession/Order Number: [id number] Exam Date: 11/30/2024 09:00 Report Date: 11/30/2024 09:10 At the request of: ABEL ROLAND DO Procedure: XR hip RT 2V w/ pelvis RIGHT HIP WITH AP PELVIS - 3 views COMPARISON: 12/01/[address] 02/01/2020 CLINICAL DATA: Right hip pain for the past 4-5 years. No recent injury. AP view of the pelvis as well as AP and frog-lateral views of the right hip were obtained. There is osteopenia. No fracture or dislocation is identified. There is minor narrowing of the right hip joint space. No significant hypertrophy is seen. There is continued subchondral cystic change at the superior acetabulum on that side. The SI joints are intact. There is dextroscoliotic curvature at the lower lumbar spine along with postoperative change. No soft tissue abnormalities are present. XR/XR hip RT 2V w/ pelvis IMPRESSION: CONTINUED MINOR DEGENERATIVE CHANGE AT THE RIGHT HIP. NO ACUTE BONY FINDINGS. Impression dictated by: Nita Palmer M.D.11/30/2024 9:10 AM Dictation Location: [place] [address] Electronically authenticated by: [id number] Y Date: 11/30/2024 09:10
--- OUTSIDE RECORDS SUMMARY | 2024-11-30 08:15 | XMS_ITS | CCD ---
Author Organization [facility] Care Team Providers Care Axle Polisher Name Role Phone FELISA HYATT Attending Unavailable ASUNCION, DONTAE Primary Care Unavailable DONTAE URIBE Referring Unavailable LUCASOR FELISA Admitting Unavailable MARIA E FELISA Attending Unavailable DONTAE URIBE Primary Care Unavailable DONTAE URIBE Referring Unavailable MASROOR, FELISA Admitting Unavailable MASROOR, FELISA Surgeon Unavailable CA Procedure Practitioner Unavailab le ELTAHAWKaleigh, JAVEDAB A Admitting Unavailable ELADALGISAHAWY, EHAB A Attending Unavailable DONTAE URIBE Primary Care Unavailable [...] Care Unavailable ELTAHAWY, DR ASHFORD Consulting Unavailable PAM PALACIO Attending Unavailable YUNG VIGIL Referring Unavailable DO Dontae Uribe Primary Care Provider [phone] DO Alex Francois Attending Provider [phone] ELADALGISAHAWJAVED FarrisAB Attending Unavailable ELTAHAWY, JAVEDAB Attending Unavailable ELTAHAWY, EHAB Attending Unavailable PIPPATOMÁS De Santiago Attending Unavailable Ly, DO Kym L Attending Provider MD Calin Adams Other Provider Asuncion GARDNER, Dontae Primary Care Provider [place] DO, Alex N Attending Provider Ly DO, Kym Umana Attending Provider [phone] Calin Adams MD Other Provider Asuncion DO, Dontae Primary Care Provider [place] DO, Alex N Attending Provider [place] DO, Alex N Referring Provider Asuncion, Dontae Primary Care Unavailable [place], Alex N Attending Unavailable [place], Alex N Admitting Unavailable [place], Alex N Attending Unavailable [place], Alex N Admitting Unavailable Ball, Dontae Primary Care Unavailable [place], Alex N Attending Unavailable [place], Alex N Referring Unavailable [place], Alex N Admitting Unavailable Ball, Dontae Primary Care Unavailable [place], Alex N Admitting Unavailable Ball, Dontae Primary Care Unavailable [place], Alex N Attending Unavailable Calin Adams Consulting Unavailab le [place], Alex N Attending Unavailable [place], Alex N Admitting Unavailable Ball, Dontae Primary Care Unavailable Ball, Dontae Primary Care Unavailable Ly, Kym L Admitting Unavailable Ly, Kym L Attending Unavailable Dontae Uribe DO Primary Care Provider [place] DO, Alex N Attending Provider [phone] Dontae Uribe DO Primary Care Provider [place] DO, Alex N Attending Provider [place] DO, Alex N Referring Provider Allergies Allergy Classification Reported Allergen(s) Allergy Type Date of Onset Reaction(s) Facility Cephalosporins (antibiotic) (2 sources) Cephalosporins (Antibiotic) Drug Allergy 01-25-20 24 Rash [facility] Penicillins (antibiotic) (2 sources) Penicillin G Benzathine Drug Allergy 01-25-20 24 Unknown Reaction, [facility] Quinolones (antibiotic) (1 source) Ciprofloxacin Drug Allergy 01-25-20 [facility] Sulfonamides (antibiotic) (1 source) Sulfonamides (Antibiotic) Drug Allergy 01-25-20 [facility] (4 sources) black walnut pollen extract; Translations: [YBMMNRD-LGD-UEM REDUCTASE INHIBITORS] Drug Allergy 07-31-20 09 [facility] Repository (20 sources) Cephalosporins (Antibiotic); Translations: [CEPHALOSPORINS] Drug allergy (disorder) 07-31-20 09 Rash [facility] Repository Comment on above: Onset Date: 01/15/20 (1 source) Ciprofloxacin; Translations: [CIPRO] Drug Allergy 03-27-20 21 [facility] Repository (20 sources) Penicillins; Translations: [PENICILLINS] Drug allergy (disorder) 07-31-20 09 Rash [facility] Repository (12 sources) Hmg-Coa Reductase Inhibitors (Statins) Propensity to adverse reactions SWELLING [facility] Other (12 sources) Pcn, Cephalasporins Propensity to adverse reactions (Eriberto) 10/07/2012 [facility] Other (20 sources) Ciprofloxacin; Translations: [CIPROFLOXACIN] Drug Allergy 08-30-20 13 Unknown, [facility] (13 sources) Substance with sulfonamide structure and antibacterial mechanism of action (substance) Drug allergy Unknown [facility] Other (2 sources) Sulfonamides (Antibiotic) Drug allergy (disorder) 06-23-20 13 [facility] Repository (6 sources) HMG-CoA reductase inhibitor Drug allergy Unknown [facility] Other (6 sources) Penicillin G Benzathine & Proc Drug allergy 01-15-20 18 Unknown [facility] Other (4 sources) Statins Support *DIETARY PRODUCTS/DIETARY MANAGEME Propensity to adverse reactions 01-15-20 18 Unknown [facility] Other (1 source) Substance with penicillin structure and antibacterial mechanism of action (substance) Drug allergy Unknown [facility] Other (6 sources) Medicinal cephalosporin and acting as antibacterial agent (FN) Drug allergy 01-15-20 18 Unknown [facility] Other (1 source) patient allergy list reviewed by nurse or physicia Propensity to adverse reactions 01-15-20 Comment:Done [facility] Other (20 sources) Cefaclor; Translations: [cefaclor] Drug Allergy 03-10-20 22 [facility] (20 sources) Penicillin G Benzathine; Translations: [penicillin G benzathine] Allergy to substance 08-16-20 Unknown Reaction, shortness of breath, [facility] (20 sources) Sulfonamides (Antibiotic); Translations: [Sulfa (Sulfonamide Antibiotics)] Allergy to substance 08-16-20 [facility] (20 sources) Glrbseo-JUE-TsF Reductase Inhibitor; Translations: [Esugnbp-RVL-GjJ Reductase Inhibitor] Allergy to substance 08-16-20 [facility] (1 source) Cephalosporins (Antibiotic) Drug allergy (disorder) 08-30-20 [facility] Repository (1 source) Ciprofloxacin Drug Allergy 08-30-20 [facility] Repository (1 source) Penicillins Drug allergy (disorder) 08-30-20 [facility] Repository Medications Current Medications Medication Drug Class(es) Dates Sig (Normalized) Sig (Original) acetaminophen 300 mg / codeine phosphate 30 mg oral tablet (20 sources) Opioid Agonist Start: 10-11-2024 End: 11-22-2024 take 1 tablet by mouth twice daily as needed for pain Acetaminophen-Cod eine 300-30 mg tablet Active 1 TAB PO Twice daily as needed for pain 14 November 22, 2024 11:31am Start: 07-13-2024 End: 07-24-2024 take 1 tablet by mouth every four hours as needed for pain Acetaminophen-Codeine 300-30 mg tablet Discontinued 1 TAB PO Every 4 hours as needed for pain 30 July 13, 2024 12:00am July 24, 2024 10:08am Start: 06-21-2024 End: 07-13-2024 take 1 tablet by mouth every six hours as needed for pain Acetaminophen-Codeine 300-30 mg tablet Discontinued 1 TAB PO Every 6 hours as needed for pain June 21, 2024 12:00am July 13, 2024 7:47am Start: 03-20-2024 End: 03-20-2024 take 1 tablet by mouth every six hours as needed for pain Acetaminophen-Codeine 300-15 mg tablet Discontinued 1 TAB PO Every 6 hours as needed for pain 21 March 20, 2024 12:00am March 20, 2024 2:46pm Start: 03-20-2024 End: 06-12-2024 take 1 tablet by mouth every six hours as needed for pain Acetaminophen-Codeine 300-30 mg tablet Discontinued 1 TAB PO Every 6 hours as needed for pain 09 04May 30, 2024 4:31pm June 12, 2024 10:33am [id number] actuat albuterol 0.09 mg/actuat metered dose inhaler (20 sources) beta2-Adrenergic Agonist Start: 06-29-2024 Albut cheyanne Sulfate 90 mcg/actuation HFA aerosol inhaler Active 2 PUFF INHALATION Daily as needed for shortness of breath or wheezing June 29, 2024 12:00am INHALE 2 PUFFS EVERY 4 HOURS NEEDED FOR COUGH AND SHORTNESS OF BREATH 17 Start: 04-24-2024 End: 06-29-2024 Albuterol Sulfate 90 mcg/act uation HFA aerosol inhaler Discontinued 0 .ROUTE .COMPLEX 18 April 24, 2024 11:05am June 29, 2024 3:52pm INHALE 2 PUFFS EVERY 4 HOURS NEEDED FOR COUGH AND SHORTNESS OF BREATH 17 Start: 11-30-2023 End: 04-24-2024 take 1 puff(s) by inhalation every four hours as needed Albuterol Sulfate 90 mcg/actuation HFA aerosol inhaler Discontinued 1 PUFF INHALATION Every 4 hours as needed November 30, 2023 12:00am April 24, 2024 11:05am take 1 puff(s) by in halation every four hours as needed Albuterol Sulfate HFA 108 (90 Base) MCG/ACT 1 puff as needed Inhalation every 4 hrs Active aspirin 81 mg delayed release oral tablet (20 sources) Platelet Aggregation Inhibitor, Nonsteroidal Anti-inflammatory Drug Start: 08-18-2024 take 1 tablet by mouth once daily Aspirin 81 mg tablet,delayed release (DR/EC) Active 81 MG PO Daily August 18, 2024 1:00am Start: 07-07-2017 End: 07-13-2024 take 1 tablet by mouth once daily at bedtime Aspirin (Aspir-Low) 81 mg Tablet,Delayed Release (Dr/Ec) Discontinued 1 TAB PO Daily at bedtime July 07, 2017 12:00am July 13, 2024 7:47am take 2 tablets by [facility] every twenty-four hours Aspirin 81 MG 2 tablet Orally Once a day Active azithromycin 250 mg oral tablet (20 sources) Macrolide Antimicrobial Start: 11-29-2024 Azithromycin 250 mg tablet Active 250 MG PO .COMPLEX 6 5 November 29, 2024 12:00am 2 tabs on first day followed by 1 tab on days 2-5 Start: 08-31-2024 End: 10-11-2024 Azithromycin 250 mg tablet Discontinued 250 MG PO .COMPLEX 6 5 August 31, 2024 1:00am October 11, 2024 9:53am 2 tabs on first day followed by 1 tab on days 2-5 Start: 11-30-2023 End: 06-09-2024 Azithromycin 250 mg tablet Discontinued 250 MG PO As Directed 6 March 20, 2024 1:39pm May 08, 2024 [...] alpha-Adrenergic Mariah, beta-Adrenergic Mariah Start: 03-10-2022 take 1 tablet by mouth twice daily Carvedilol 25 mg tablet Active 25 MG PO Twice daily March 10, 2022 12:00am Start: 07-07-2017 End: 03-10-2022 take 1 tablet by mouth twice daily Carvedilol 6.25 mg tablet Discontinued 1 TAB PO Twice daily July 07, 2017 12:00am March 10, 2022 9:42am cyclobenzaprine hydrochloride 10 mg oral tablet (20 sources) Muscle Relaxant Start: 09-06-2024 End: 09-06-2024 take 1 tablet by mouth three times daily as needed for muscle spasms Cyclobenzaprine 10 mg tablet Active 10 MG PO Three times daily as needed for muscle spasm 19 07September 06, 2024 11:14am Start: 07-13-2024 End: 07-24-2024 take 1 tablet by mouth three times daily as needed for muscle spasms Cyclobenzaprine 10 mg tablet Discontinued 10 MG PO Three times daily as needed for back spasms July 13, 2024 12:00am July 24, 2024 10:07am ezetimibe 10 mg oral tablet (20 sources) Dietary Cholesterol Absorption Inhibitor Start: 03-10-2022 take 1 tablet by mouth once daily in the morning Ezetimibe (Zetia) 10 mg Tablet Active 10 MG PO Every morning March 10, 2022 12:00am Zetia Active furosemide 20 mg oral tablet (20 sources) Loop Diuretic Start: 11-30-2023 take 1 tablet by mouth once daily in the morning Furosemide (Lasix) 20 mg tablet Active 20 MG PO Every morning November 30, 2023 12:00am take 1 tablet by lucita th every twenty-four hours Lasix 20 MG 1 tablet Orally Once a day Active losartan potassium 50 mg oral tablet (20 sources) Angiotensin 2 Receptor Mariah Start: 04-14-2024 End: 06-29-2024 take 1 tablet by mouth once daily in the morning Losartan 50 mg tablet Active 50 MG PO Every morning June 29, 2024 12:00am Start: 03-10-2022 End: 04-14-2024 take 1 tablet by mouth once daily Losartan 25 mg tablet Discontinued 25 MG PO Daily March 10, 2022 12:00am April 14, 2024 9:24am [facility] methylPREDNISolone 4 mg oral tablet (2 sources) Corticosteroid Start: 10-11-2024 take 1 tablet by mouth once Methylprednisolone (Medrol (Berhane)) 4 mg tablets,dose pack Active 0 PO per package directions October 11, 2024 1:00am PO PER PKG DIR for 6 days nitroglycerin 0.4 mg sublingual tablet (20 sources) Nitrate Vasodilator Start: 12-24-2023 Nitroglycerin 0.4 mg tablet, sublingual Active 0.4 MG SUBLINGUAL every 5 to 15 minutes as needed for chest pain December 24, 2023 12:00am do not exceed [...] day before your procedure for 1 days BIN:[id number] PCN: [id number] GROUP:[id number] ID:[id number] Nov, Not-Taking predniSONE 1 mg/ml oral solution (20 sources) Start: 10-30-2024 take 5 mg by mouth three times daily as needed for cough Prednisone 5 mg/5 mL solution Active 5 MG PO Three times daily as needed for cough 240 October 30, 2024 1:14pm Start: 09-06-2024 End: 10-11-2024 Prednisone 10 mg tablet Discontinued 10 MG PO As Directed 18 September 06, 2024 1:00am October 11, 2024 9:53am take 3 tablets for 3 days take 2 tablets for 3 days take 1 tablet for 3 days Start: 08-18-2024 End: 10-11-2024 take 5 mg by mouth three times daily as needed for cough Prednisone 5 mg/5 mL solution Discontinued 5 MG PO Three times daily as needed for cough 240 August 18, 2024 10:26am October 11, 2024 9:53am Start: 07-13-2024 End: 07-24-2024 Prednisone 10 mg tablets,dos e pack Discontinued 10 MG PO per package directions July 13, 2024 12:00am July 24, 2024 10:08am take 4 tabs for 3 days then take 3 tabs for 3 days then take 2 tabs for 3 days then take 1 tab for 3 days Start: 07-06-2024 End: 07-06-2024 take 5 mg by mouth once daily as needed Prednisone 5 mg/mL concentrate Discontinued 5 MG PO Daily as needed July 06, 2024 12:00am July 06, 2024 8:19pm Start: 07-06-2024 End: 07-13-2024 take 1 [tsp_us] by mouth three times daily as needed for cough, then take 1 [tsp_us] by mouth twice daily as needed for cough, then take 1 [tsp_us] by mouth once daily as needed for cough Prednisone 5 mg/5 mL solution Discontinued 5 MG PO .COMPLEX 120 30 July 06, 2024 12:00am July 13, 2024 7:47am 1 tsp PO tid x 3 days, then 1 tsp PO bid x 3 days, then 1 tsp PO qd x 3 days PRN wheezing, cough Start: 07-06-2024 End: 07-06-2024 take 5 mg by mouth once daily Prednisone Discontinued 5 MG PO Daily July 06, 2024 12:00am July 06, 2024 8:19pm Start: 02-21-2024 End: 06-12-2024 take 5 mg by mouth three times daily as needed for wheezing Prednisone 5 mg/5 mL solution Discontinued 5 MG PO Three times daily as needed for wheezing 120 14 May 08, 2024 3:44pm June 12, 2024 10:33am take 5 mL by mouth t hree [...] Sig (Original) acetaminophen 500 mg oral tablet (20 sources) Start: 06-29-2024 End: 07-13-2024 take 1 tablet by mouth every six hours as needed for pain Acetaminophen (Acetaminophen Extra Strength) 500 mg tablet Discontinued 500 MG PO Every 6 hours as needed for pain June 29, 2024 12:00am July 13, 2024 7:47am Start: 07-07-2017 End: 03-10-2022 take 1 tablet by mouth every six hours as needed for pain Acetaminophen (Tylenol Extra Strength) 500 mg Tablet Discontinued 1 TAB PO Q6H as needed for Pain July 07, 2017 12:00am March 10, 2022 9:44am amLODIPine 2.5 mg oral tablet (20 sources) Dihydropyridine Calcium Channel Mariah Start: 12-24-2023 End: 04-12-2024 take 1 tablet by mouth once daily Amlodipine 2.5 mg tablet Discontinued 2.5 MG PO Daily December 24, 2023 12:00am April 12, 2024 8:32pm Start: 07-07-2017 End: 03-10-2022 take 1 tablet by mouth once daily Amlodipine 5 mg tablet Discontinued 1 TAB PO Daily July 07, 2017 12:00am March 10, 2022 9:44am benzonatate 200 mg oral capsule (3 sources) Non-narcotic Antitussive Start: 05-27-2023 take 1 capsule by mouth every eight hours Benzonatate 200 MG 1 capsule Orally Three times a day for 10 days May, Not-Taking Calcium (20 sources) Phosphate Binder, Calcium Start: 11-30-2023 End: 06-12-2024 take 1 tablet by mouth once daily [id number] (Caltrate 600-D Plus Minerals) 600 mg calcium- 800 unit-50 mg tablet Discontinued 1 TAB PO Daily November 29, 2023 11:00pm June 12, 2024 7:59am Start: 11-30-2023 End: 06-12-2024 take 1 tablet by mouth once daily [id number] (Caltrate 600-D Plus Minerals) 600 mg calcium- 800 unit-50 mg tablet Discontinued 1 TAB PO Daily November 30, 2023 12:00am June 12, 2024 8:59am Start: 11-30-2023 take 1 tablet by lucita th once daily [id number] (Caltrate 600-D Plus Minerals) 600 mg calcium- 800 unit-50 mg tablet Active 1 TAB PO Daily November 30, 2023 12:00am clopidogrel 75 mg oral tablet (20 sources) [id number] Platelet Inhibitor Start: 11-30-2023 End: 06-09-2024 take 1 tablet by mouth once daily Clopidogrel (Plavix) 75 mg tablet Discontinued 75 MG PO Daily November 30, 2023 12:00am June 09, 2024 9:08am Start: 07-07-2017 End: 03-10-2022 take 1 tablet by mouth once daily Clopidogrel 75 mg tablet Discontinued 1 TAB PO Daily July 07, 2017 12:00am March 10, 2022 9:44am dicyclomine hydrochloride 10 mg oral capsule (20 sources) Anticholinergic Start: 05-06-2024 End: 06-12-2024 take 1 capsule by mouth four times daily as needed for pain Dicyclomine 10 mg capsule Discontinued 0 .ROUTE .COMPLEX 360 May 06, 2024 12:09pm June 12, 2024 10:33am TAKE 1 CAPSULE BY MOUTH 4 TIMES DAILY NEEDED FOR ABDOMINAL PAIN Start: 05-06-2024 take 1 capsule by mo uth four times daily as needed for pain Dicyclomine Active 0 .ROUTE .COMPLEX 360 May 06, 2024 12:09pm TAKE 1 CAPSULE BY MOUTH 4 TIMES DAILY NEEDED FOR ABDOMINAL PAIN Start: 04-14-2024 End: 05-06-2024 take 1 capsule by mouth four times daily as needed for pain Dicyclomine 10 mg capsule Discontinued 10 MG PO Four times daily as needed for abdominal pain 120 30 April 14, 2024 12:00am May 06, 2024 12:09pm take 1 capsule by mo uth four times daily as needed docusate sodium 100 mg oral capsule (20 sources) Start: 07-07-2017 End: 03-10-2022 take 1 capsule by mouth once daily as needed for constipation Docusate Sodium (Colace) 100 mg Capsule Discontinued 100 MG PO Daily as needed for Constipation July 07, 2017 12:00am March 10, 2022 9:44am 1 ml evolocumab 140 mg/ml prefilled syringe (20 sources) PCSK9 Inhibitor Start: 03-10-2022 End: 08-18-2024 Evolocumab (Repatha Syringe) 140 mg/mL Syringe Discontinued 140 MG SUBCUT every month March 10, 2022 12:00am August 18, 2024 9:59am Start: 03-10-2022 Evolocumab (Re patha Syringe) 140 mg/mL Syringe Active 140 MG SUBCUT EVERY 2 WEEKS March 10, 2022 12:00am Repatha Active linaclotide 0.145 mg oral capsule (20 sources) Guanylate Cyclase-C Agonist Start: 07-07-2017 End: 06-12-2024 take 1 capsule by mouth once daily Linaclotide 145 mcg capsule Discontinued 1 TAB PO Daily July 07, 2017 12:00am June 12, 2024 9:00am Start: 01-09-2014 End: 06-12-2024 take 1 tablet by mouth once daily Linaclotide Discontinued 1 TAB PO Daily July 07, 2017 12:00am June 12, 2024 9:00am mupirocin 0.02 mg/mg topical ointment (19 sources) RNA Synthetase Inhibitor Antibacterial Start: 04-14-2024 End: 06-12-2024 Mupirocin 2 % ointment Discontinued 1 APPLIC TOPICAL Twice daily 11 07April 14, 2024 12:00am June 12, 2024 9:00am ondansetron 4 mg oral tablet (20 sources) Serotonin-3 Receptor Antagonist Start: 07-13-2024 End: 08-18-2024 take 1 tablet by mouth every eight hours as needed for nausea and vomiting Ondansetron Hcl 4 mg tablet Discontinued 4 MG PO Every 8 hours as needed for nausea and vomiting 06 02July 13, 2024 12:00am August 18, 2024 10:01am Start: 03-20-2024 End: 06-12-2024 take 1 tablet by mouth every six hours as needed for nausea and vomiting Ondansetron 4 mg tablet,disintegrating Discontinued 4 MG PO Every 6 hours as needed for nausea and vomiting 06 02March 20, 2024 12:00am June 12, 2024 9:01am pantoprazole 40 mg delayed release oral tablet (11 sources) Proton Pump Inhibitor Start: 06-21-2024 End: 06-29-2024 take 1 tablet by mouth once daily Pantoprazole 40 mg tablet,delayed release (DR/EC) Discontinued 40 MG PO Daily June 21, 2024 12:00am June 29, 2024 3:49pm tiZANidine 4 mg oral tablet (20 sources) Central alpha-2 Adrenergic Agonist Start: 07-10-2024 End: 07-13-2024 take 1 tablet by mouth once daily at bedtime as needed Tizanidine 4 mg tablet Discontinued 4 MG PO Daily at bedtime as needed for muscle spasticity July 10, 2024 12:47pm July 13, 2024 7:48am Start: 2024 End: 10-10-2024 take 1 tablet by mouth once daily at bedtime as needed Tizanidine 4 mg tablet Discontinued 4 MG PO Daily at bedtime as needed for muscle spasticity 2024 12:00am June 29, 2024 3:49pm zonisamide 25 mg oral capsule (12 sources) Anti-epileptic Agent Start: 06-14-2024 End: 2024 take 1 capsule by mouth at bedtime Zonisamide (Zonegran) 25 mg capsule Discontinued 50 MG PO Bedtime 60 June 14, 2024 12:00am 2024 2:32pm Problems Active Problems Problem Classification Problem Date Documented Da te Episodic/Chronic Abdominal hernia (14 sources) Hiatal hernia; Translations: [Diaphragmatic hernia without obstruction or gangrene] Episodic Abdominal pain (20 sources) Abdominal pain; Translations: [Unspecified abdominal pain] Onset: 2 Resolved: 2 Episodic Acute bronchitis (20 sources) Acute bronchitis; Translations: [Acute bronchitis due to other specified organisms] Episodic Asthma (20 sources) Uncomplicated mild persistent asthma; Translations: [Mild persistent asthma, uncomplicated] Chronic Cardiac dysrhythmias (20 sources) Paroxysmal atrial fibrillation; Translations: [Paroxysmal atrial fibrillation] Chronic Chronic obstructive pulmonary disease and bronchiectasis (4 sources) Chronic bronchitis; Translations: [Unspecified chronic bronchitis] Onset: 8 Chronic Conditions associated with dizziness or vertigo (20 sources) Dizziness; Translations: [Dizziness and giddiness] 01-25-2024 Episodic Coronary atherosclerosis and other heart disease (20 sources) Coronary arteriosclerosis; Translations: [Atherosclerotic heart disease of [place] coronary artery without angina pectoris] Onset: 0 Resolved: 2 Chronic Coronary atherosclerosis and other heart disease (4 sources) Bypass stent graft present; Translations: [Presence of aortocoronary bypass graft] Episodic Deficiency and other anemia (20 sources) Anemia; Translations: [Anemia, unspecified] 11-23-2023 Episodic Deficiency and other anemia (20 sources) Pernicious anemia; Translations: [Vitamin B12 deficiency anemia due to intrinsic factor deficiency] 12-15-2023 Episodic Deficiency and other anemia (20 sources) Vitamin B12 deficiency anemia due to [...] without status migrainosus] Chronic Headache; including migraine (20 sources) Headache; Translations: [Headache] 01-25-2024 Episodic Nausea and vomiting (20 sources) Nausea; Translations: [Nausea] Resolved: 0 03-20-2024 Episodic Nonspecific chest pain (20 sources) Chest wall pain; Translations: [Other chest pain] Resolved: 0 12-24-2023 Episodic Osteoarthritis (17 sources) Localized, primary osteoarthritis of the shoulder region; Translations: [Primary osteoarthritis, right shoulder] Chronic Osteoporosis (20 sources) Primary osteoporosis; Translations: [Age-related osteoporosis without current pathological fracture] 11-30-2023 Chronic Other aftercare (1 source) Other longterm (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 therapy Episodic Other connective tissue disease (13 sources) Tendinitis of right rotator cuff; Translations: [Other shoulder lesions, right shoulder] Episodic Other connective tissue disease (4 sources) Mass of shoulder region; Translations: [Other shoulder lesions, right shoulder] Episodic Other gastrointestinal disorders (20 sources) Irritable bowel syndrome characterized by constipation; Translations: [Irritable bowel syndrome with constipation] 11-30-2023 Chronic Other gastrointestinal disorders (10 sources) Irritable bowel syndrome with constipation; Translations: [Irritable bowel syndrome] 06-09-2024 Chronic Other gastrointestinal disorders (14 sources) Constipation; Translations: [Constipation, unspecified] Episodic Other gastrointestinal disorders (20 sources) Dysphagia; Translations: [Dysphagia, unspecified] 09-01-2023 Episodic Comment on above: Problem List clean-u p per request of Phys. 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] 11-30-2023 Chronic Other injuries and conditions due to external causes (4 sources) History of fall; Translations: [History of falling] Episodic Other lower respiratory disease (20 sources) Cough; Translations: [Cough] 03-20-2024 Episodic Other nervous system disorders (1 source) Other chronic pain; Translations: [Other chronic pain] Onset: 4 Chronic Other non-traumatic joint disorders (4 sources) Shoulder joint pain; Translations: [Pain in right shoulder] Episodic Other non-traumatic joint disorders (1 source) Hip pain; Translations: [Pain in unspecified hip] 11-29-2024 Episodic Other non-traumatic joint disorders (1 source) Pain in unspecified hip; Translations: [Pain in joint, pelvic region and thigh] 11-29-2024 Episodic Other screening for suspected conditions (not mental disorders or infectious disease) (16 sources) Encounter for screening mammogram for malignant neoplasm of breast; Translations: [Abnormal result of other cardiovascular function study] Episodic Other skin disorders (17 sources) Vesicular eczema of hands and/or feet; Translations: [Dyshidrosis [pompholyx]] Episodic Other skin disorders (20 sources) Vesicular eczema; Translations: [Dyshidrosis [pompholyx]] 11-30-2023 [...] [Asymptomatic menopausal state] Episodic Residual codes; unclassified (20 sources) Menopause present; Translations: [Asymptomatic menopausal state] 11-30-2023 Episodic Spondylosis; intervertebral disc disorders; other back problems (20 sources) Lumbar spondylosis; Translations: [Spondylosis without myelopathy or radiculopathy, lumbar region] Onset: 4 Chronic Comment on above: s/p PLIF - 06/2024 Spondylosis; intervertebral disc disorders; other back problems (20 sources) Radiculopathy, site unspecified; Translations: [Low back pain] Onset: 4 Episodic Sprains and strains (17 sources) Neck sprain; Translations: [Strain of muscle, fascia and tendon at neck level, initial encounter] Episodic Unclassified (1 source) Other ventricular tachycardia; Translations: [Other ventricular tachycardia] Onset: 4 Unclassified (1 source) Other post infection and related fatigue syndromes; 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] Onset: 4 Unclassified (1 source) Low back pain, unspecified; Translations: [Low back pain, unspecified] Onset: 4 Viral infection (4 sources) 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; Translations: [Post COVID-19 condition, unspecified] Past or Other Problems Problem Classification Problem Date Documented Da te Episodic/Chronic Bacterial infection; unspecified site (2 sources) Bacterial infectious disease; Translations: [Bacterial infection, unspecified, in conditions classified elsewhere and of unspecified site] Onset: 01-14-2018 Episodic Cardiac dysrhythmias (2 sources) Palpitations; Translations: [Palpitations] Onset: 12-15-2023 Episodic Diverticulosis and diverticulitis (4 sources) Diverticulitis of colon; Translations: [Diverticulitis of intestine, part unspecified, without perforation or abscess without bleeding] Resolved: 10-22-2020 Chronic Immunizations and screening for infectious disease (4 sources) Contact with and (suspected) exposure to other viral communicable diseases; Translations: [Contact with and (suspected) exposure to COVID-19] Resolved: 02-03-2021 Episodic Malaise and fatigue (2 sources) Other fatigue; Translations: [Other fatigue] Onset: 12-15-2023 Episodic Other gastrointestinal disorders (4 sources) Dysphagia, unspecified; Translations: [Dysphagia, unspecified] Onset: 04-21-2022 Resolved: 04-21-2022 Episodic Other lower respiratory disease (2 sources) Shortness of breath; Translations: [Shortness of breath] Onset: 12-15-2023 Episodic Otitis media and related conditions (6 sources) Unspecified Eustachian tube disorder, left ear; Translations: [Eustachian tube salpingitis] Onset: 12-08-2018 Episodic Residual codes; unclassified (4 sources) Edema, unspecified; Translations: [EDEMA UNSPECIFIED] Onset: 03-05-2022 Episodic Unclassified (11 sources) Post-COVID syndrome; Translations: [Post-COVID syndrome] Unclassified (1 source) Acute cough R05.1 Unclassified (2 sources) 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); Translations: [Post-COVID syndrome] Unclassified (1 source) Other ventricular tachycardia; Translations: [Other ventricular tachycardia] Onset: 06-22-2024 Unclassified (1 source) Other post infection and related fatigue syndromes; 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] Onset: 01-05-2024 Results Test Name Value Interpretation Reference Range Facility X-ray reportOrdered By: vAery Hinkle on 10-06-2024 Study report [facility] [place] [address] XRay Report Signed Patient: Sj Brewster MR#: [id number] : 1950 Acct:[id number] Age/Sex: 74 / F ADM Date: 5 Loc: XD Room: Type: [facility] Attending Dr: Alex Francois DO Copies to: Alex Francois DO~ Ordering Provider: Alex Francois DO Date of Service: 10/06/24 XR/XR lumbar spine 2-3V*: M47.816 - Spondylosis without myelopathy or radiculopathy... LUMBAR SPINE - 2 views CLINICAL HISTORY: Follow-up back surgery COMPARISON: Lumbar spine 08/15/2024 FINDINGS: Hardware fixation L4-L5 without radiographic complication. Mild compression deformity L2 vertebral body, unchanged. Dextro scoliosis with multilevel degenerative disc disease similar to the prior study. XR/XR lumbar spine 2-3V* IMPRESSION: NO HARDWARE COMPLICATION. Impression dictated by: Jovan Arthur Jr.OEvita10/06/2024 1:38 PM Dictation Location: [facility]IO-PC-22 Transcribed By: KERRIE 10/06/24 1338 Dictated By: Nikolay Hinkle Jr DO 10/06/24 1319 Signed By: 10/06/24 1338 [facility] XR lumbar spine 2-3V*on 09-20 XR lumbar spine 2-3V* [facility] [place] [address] XRay Report Signed Patient: Sj Brewster MR#: [id number] 34 : 1950 Acct:[id number] Age/Sex: 74 / F ADM Date: 10/06/24 Loc: XD Room: Type: [facility] Attending Dr: Alex Francois DO Copies to: Alex Francois DO Ordering Provider: Alex Francois DO Date of Service: 10/06/24 XR/XR lumbar spine 2-3V*: M47.816 - Spondylosis without myelopathy or radiculopathy... LUMBAR SPINE - 2 views CLINICAL HISTORY: Follow-up back surgery COMPARISON: Lumbar spine 08/15/2024 FINDINGS: Hardware fixation L4-L5 without radiographic complication. Mild compression deformity L2 vertebral body, unchanged. Dextro scoliosis with multilevel degenerative disc disease similar to the prior study. XR/XR lumbar spine 2-3V* IMPRESSION: NO HARDWARE COMPLICATION. Impression dictated by: Brionna Arthur Jr..O.10/06/2024 1:38 PM Dictation Location: [facility]IO-PC-22 Transcribed By: KERRIE 10/06/24 1338 Dictated By: Nikolay Hinkle Jr DO 10/06/24 1319 Signed By: 10/06/24 1338 Normal [facility] XR lumbar spine 2-3V*on 07-22 XR lumbar spine 2-3V* [facility] Main [place] [address] [place] [address] XRay Report Signed Patient: Sj Brewster MR#: [id number] 34 : 1950 Acct:[id number] Age/Sex: 74 / F ADM Date: 08/15/24 Loc: XD Room: Type: [facility] Attending Dr: Alex Francois DO Copies to: Alex Francois DO Ordering Provider: Alex Francois DO Date of Service: 08/15/24 XR/XR lumbar spine 2-3V*: M47.816 - Spondylosis without myelopathy or radiculopathy... LUMBAR SPINE - 2 views CLINICAL HISTORY: Follow-up postop COMPARISON: Lumbar spine 07/12/2024 FINDINGS: Posterior hardware fixation L4-L5 without hardware complication. Bones are grossly demineralized. Scoliosis with multilevel degenerative change similar to the prior study. XR/XR lumbar spine 2-3V* IMPRESSION: NO HARDWARE COMPLICATION. Impression dictated by: Nikolay Hinkle Jr., D.O.08/15/2024 5:53 PM Dictation Location: [facility] Transcribed By: [facility] 08/15/241752 Dictated By: Nikolay Hinkle Jr, DO 08/15/241749 Signed By: 08/15/241752 Normal [facility] Automated basophil %Ordered By: Calin Adams on 07-13-2024 Basophils/100 WBC (Bld) 0.1 % Normal . [facility] Comment on above: Performed By: #### C BC, BMP #### [address] Automated basophil countOrde red By: Calin Adams on 07-13-2024 Basophils (Bld) [#/Vol] 0.0 10*3/uL Normal 0.0-0.2 [facility] Comment on above: Result Comment: PERF ORMED BY: [place] [address] PATHOLOGIST DINING ROOM SUPERVISOR SHARIF ARNOLD M.D. Performed By: #### C BC, BMP #### [address] Automated blood monocyte cou ntOrdered By: Calin Doamekpor on 07-13-2024 Monocytes (Bld) [#/Vol] 0.6 10*3/uL Normal 0.0-0.8 [facility] Comment on above: Performed By: #### C BC, BMP #### [address] Automated eosinophil %Ordere d By: Calin Doamekpor on 07-13-2024 Eosinophils/100 WBC (Bld) 0.1 % Normal . [facility] Comment on above: Performed By: #### C BC, BMP #### [address] Automated eosinophil countOr dered By: Calin Doamekpor on 07-13-2024 Eosinophils (Bld) [#/Vol] 0.0 10*3/uL Normal 0.0-0.45 [facility] Comment on above: Performed By: #### C STEPHANIE, BMP #### [address] Automated monocyte %Ordered By: Calin Doamekpor on 07-13-2024 Monocytes/100 WBC (Bld) 3.8 % Normal . [facility] Comment on above: Performed By: #### C BC, BMP #### [address] Automated neutrophil %Ordere d By: Calin Doamekpor on 07-13-2024 Neutrophils/100 WBC (Bld) 92.9 % Normal . [facility] Comment on above: Performed By: #### C BC, BMP #### [address] Basic Metabolic Panelon 10-2 Creatinine Clr Calc Pharmacy 51.31 Normal [facility] Comment on above: Result Comment: PERF ORMED BY: [place] [address] PATHOLOGIST DINING ROOM SUPERVISOR SHARIF ARNOLD M.D. Performed By: #### C STEPHANIE, BMP #### [address] GFR/1.73 sq M.predicted MDRD (S/P/Bld) [Vol rate/Area] mL/min/{1.73_m2} Normal [facility] Comment on above: Performed By: #### C STEPHANIE, BMP #### [place] [address] [place] Basophils Auto (Bld) [#/Vol] Ordered By: Calin Doamekpor on 07-13-2024 Basophils (Bld) [#/Vol] Automated basophil count 0.0-0.2 [facility] Basophils/100 WBC Auto (Bld) Ordered By: Calin Doamekpor on 07-13-2024 Basophils/100 WBC (Bld) Automated basophil % . [facility] Calcium [Mass/volume] in Ser um or PlasmaOrdered By: Calin amekpor on 07-13-2024 Calcium [Mass/Vol] 8.9 mg/dL Normal 8.6-10.3 [facility] Comment on above: Performed By: #### C STEPHANIE, BMP #### [address] Calcium [Mass/Vol] Calcium [Mass/volume ] in Serum or Plasma 8.6-10.3 [facility] Carbon dioxide, total [Moles /volume] in Serum or PlasmaOrdered By: Calin Doamekpor on 07-13-2024 CO2 [Moles/Vol] 25.9 mmol/L Normal 21.0-31.0 [facility] Comment on above: Performed By: #### C STEPHANIE, BMP #### [place] [address] [place] CO2 [Moles/Vol] Carbon dioxide, tota l [Moles/volume] in Serum or Plasma 21.0-31.0 [facility] Chloride [Moles/volume] in S dm or PlasmaOrdered By: Calin Adams on 07-13-2024 Chloride [Moles/Vol] 106 mmol/L Normal 98-107 [facility] Comment on above: Performed By: #### C STEPHANIE, BMP #### [facility] [address] [place] [address] [place] Chloride [Moles/Vol] Chloride [Moles/vol ume] in Serum or Plasma 98-107 [facility] Complete Blood Count Auto Di ffon 07-13-2024 Mean Corpuscular HGB Conc 34.0 g/dL Normal 32.0-35.0 [facility] Comment on above: Performed By: #### C STEPHANIE, BMP #### [facility] [address] NRBC% 0.0 /100{WBC} Normal 0-0.5 [facility] Comment on above: Performed By: #### C STEPHANIE, BMP #### [facility] [address] [place] [address] [place] Creatinine [Mass/volume] in Serum or PlasmaOrdered By: Calin Adams on 07-13-2024 Creatinine [Mass/Vol] 0.73 mg/dL Normal 0.60-1.20 [facility] Comment on above: Performed By: #### C STEPHANIE, BMP #### [address] Creatinine [Mass/Vol] Creatinine [Mass/v olume] in Serum or Plasma 0.60-1.20 [facility] Eosinophils Auto (Bld) [#/Vo l]Ordered By: Calin Adams on 07-13-2024 Eosinophils (Bld) [#/Vol] Automated eosinophil count 0.0-0.45 [facility] Eosinophils/100 WBC Auto (Bl d)Ordered By: Calin Adams on 07-13-2024 Eosinophils/100 WBC (Bld) Automated eosinophil % . [facility] Erythrocyte distribution wid th Auto (RBC) [Ratio]Ordered By: Calin Adams on 07-13-2024 Erythrocyte distribution width (RBC) [Ratio] Erythrocyte distribution width [Ratio] by Automated count 11.9-15.3 [facility] Erythrocyte distribution wid th [Ratio] by Automated countOrdered By: Calin Adams on 07-13-2024 Erythrocyte distribution width (RBC) [Ratio] 13.2 % Normal 11.9-15.3 [facility] Comment on above: Performed By: #### C STEPHANIE, BMP #### [facility] [address] Erythrocytes [#/volume] in B lood by Automated countOrdered By: Calin Adams on 07-13-2024 RBC (Bld) [#/Vol] 3.15 10*6/uL Low 3.60-5.00 [facility] Comment on above: Performed By: #### C STEPHANIE, BMP #### [facility] [address] [place] [address] [place] Glucose [Mass/volume] in Ser um or PlasmaOrdered By: Calin Adams on 07-13-2024 Glucose [Mass/Vol] 119 mg/dL High 70-100 [facility] Comment on above: ADA recommended refe rence rangeRandom Glucose Reference Range is dependent on time and content of last meal. Glucose of more than 200 mg/dL in a nonstressed, ambulatory subject supports the diagnosis of Diabetes Mellitus. Result Comment: [place] Glucose Reference Range is dependent on time and content of last meal. Glucose of more than 200 mg/dL in a nonstressed, ambulatory subject supports the diagnosis of Diabetes Mellitus. ADA recommended reference range Performed By: #### C STEPHANIE, BMP #### [facility] [address] [place] [id number] [facility] Glucose [Mass/Vol] Glucose [Mass/volume ] in Serum or Plasma High 70-100 [facility] Comment on above: ADA recommended refe rence rangeRandom Glucose Reference Range is dependent on time and content of last meal. Glucose of more than 200 mg/dL in a nonstressed, ambulatory subject supports the diagnosis of Diabetes Mellitus. Hematocrit Auto (Bld) [Volum e fraction]Ordered By: Calin Adams on 07-13-2024 Hematocrit (Bld) [Volume fraction] Hematocrit [Volume Fraction] of Blood by Automated count Low 34.0-46.4 [facility] Hematocrit [Volume Fraction] of Blood by Automated countOrdered By: Calin Adams on 07-13-2024 Hematocrit (Bld) [Volume fraction] 30.1 % Low 34.0-46.4 [facility] Comment on above: Performed By: #### C STEPHANIE, BMP #### [facility] [address] [place] [address] Hemoglobin [Mass/volume] in BloodOrdered By: Calin Adams on 07-13-2024 Hemoglobin (Bld) [Mass/Vol] 10.2 g/dL Low 11.8-15.4 [facility] Comment on above: Performed By: #### C STEPHANIE, BMP #### [address] Hemoglobin (Bld) [Mass/Vol] Hemoglobin [Mass/volume] in Blood Low 11.8-15.4 [facility] Leukocytes [#/volume] correc andrew for nucleated erythrocytes in Blood by Automated counOrdered By: Calin Adams on 07-13-2024 WBC corrected for nucl RBC Auto (Bld) [#/Vol] 14.4 10*3/uL High 3.8-11.6 [facility] WBC corrected for nucl RBC Auto (Bld) [#/Vol] Leukocytes [#/volume] corrected for nucleated erythrocytes in Blood by Automated coun High 3.8-11.6 [facility] Leukocytes [#/volume] in Blo od by Automated countOrdered By: Calin Adams on 07-13-2024 WBC (Bld) [#/Vol] 14.4 10*3/uL High 3.8-11.6 [facility] Comment on above: Performed By: #### C STEPHANIE, BMP #### [place] [address] [place] Lymphocytes Auto (Bld) [#/Vo l]Ordered By: Calin Admas on 07-13-2024 Lymphocytes (Bld) [#/Vol] Lymphocytes [#/volume] in Blood by Automated count Low 1.00-4.8 [facility] Lymphocytes [#/volume] in Bl ood by Automated countOrdered By: Calin Adams on 07-13-2024 Lymphocytes (Bld) [#/Vol] 0.4 10*3/uL Low 1.00-4.8 [facility] Comment on above: Performed By: #### C STEPHANIE, BMP #### [facility] [address] [place] [address] Lymphocytes/100 WBC Auto (Bl d)Ordered By: Calin Adams on 07-13-2024 Lymphocytes/100 WBC (Bld) Lymphocytes/100 leukocytes in Blood by Automated count . [facility] Lymphocytes/100 leukocytes i n Blood by Automated countOrdered By: Calin Adams on 07-13-2024 Lymphocytes/100 WBC (Bld) 3.1 % Normal . [facility] Comment on above: Performed By: #### C STEPHANIE, BMP #### [facility] [address] [place] [address] MCH Auto (RBC) [Entitic mass ]Ordered By: Calin Adams on 07-13-2024 MCH (RBC) [Entitic mass] MCH [Entitic mass] by Automated count 24.7-34.3 [facility] MCH [Entitic mass] by Automa andrew countOrdered By: Calin Adams on 07-13-2024 MCH (RBC) [Entitic mass] 32.5 pg Normal 24.7-34.3 [facility] Comment on above: Performed By: #### C STEPHANIE, BMP #### [facility] [address] [place] [address] MCHC Auto (RBC) [Mass/Vol]Or dered By: Calin Adams on 07-13-2024 MCHC (RBC) [Mass/Vol] 34.0 g/dL 32.0-35.0 [facility] MCHC (RBC) [Mass/Vol] MCHC [Mass/volume] by Automated count 32.0-35.0 [facility] MCV Auto (RBC) [Entitic vol] Ordered By: Calin Adams on 07-13-2024 MCV (RBC) [Entitic vol] MCV [Entitic volume] by Automated count 80-100 [facility] MCV [Entitic volume] by Auto mated countOrdered By: Calin Adams on 07-13-2024 MCV (RBC) [Entitic vol] 95.8 fL Normal 80-100 [facility] Comment on above: Performed By: #### C STEPHANIE, BMP #### [facility] [address] Monocytes Auto (Bld) [#/Vol] Ordered By: Calin Adams on 07-13-2024 Monocytes (Bld) [#/Vol] Automated blood monocyte count 0.0-0.8 [facility] Monocytes/100 WBC Auto (Bld) Ordered By: Calin Adams on 07-13-2024 Monocytes/100 WBC (Bld) Automated monocyte % . [facility] Neutrophils Auto (Bld) [#/Vo l]Ordered By: Calin Adams on 07-13-2024 Neutrophils (Bld) [#/Vol] Neutrophils [#/volume] in Blood by Automated count High 1.8-7.7 [facility] Neutrophils [#/volume] in Bl ood by Automated countOrdered By: Calin Adams on 07-13-2024 Neutrophils (Bld) [#/Vol] 13.4 10*3/uL High 1.8-7.7 [facility] Comment on above: Performed By: #### C STEPHANIE, BMP #### [facility] [address] [place] [address] [place] Neutrophils/100 WBC Auto (Bl d)Ordered By: Calin Adams on 07-13-2024 Neutrophils/100 WBC (Bld) Automated neutrophil % . [facility] No Panel InformationOrdered By: Calin Adams on 07-13-2024 Estimated GFR (CKD-EPI) > 60.0 mL/Min [facility] Creatinine Clearance (Chem 51.31 [facility] Nucleated erythrocytes [Pres ence] in Blood by Automated countOrdered By: Calin Adams on 07-13-2024 Nucleated RBC Auto Ql (Bld) 0.0 /100{WBC} 0-0.5 [facility] Nucleated RBC Auto Ql (Bld) Nucleated erythrocytes [Presence] in Blood by Automated count 0-0.5 [facility] Platelet mean volume Auto (B ld) [Entitic vol]Ordered By: Calin Adams on 07-13-2024 Platelet mean volume (Bld) [Entitic vol] Platelet mean volume [Entitic volume] in Blood by Automated count 6.3-10.7 [facility] Platelet mean volume [Entiti c volume] in Blood by Automated countOrdered By: Calin Mishrakpor on 07-13-2024 Platelet mean volume (Bld) [Entitic vol] 8.0 fL Normal 6.3-10.7 [facility] Comment on above: Performed By: #### C STEPHANIE, BMP #### [facility] [address] [place] [address] [place] Platelets Auto (Bld) [#/Vol] Ordered By: Calin Adams on 07-13-2024 Platelets (Bld) [#/Vol] Platelets [#/volume] in Blood by Automated count 150-450 [facility] Platelets [#/volume] in Bloo d by Automated countOrdered By: Calin Adams on 07-13-2024 Platelets (Bld) [#/Vol] 284 10*3/uL Normal 150-450 [facility] Comment on above: Performed By: #### C STEPHANIE, BMP #### [facility] [address] [place] [address] [place] Potassium [Moles/volume] in Serum or PlasmaOrdered By: Calin Adams on 07-13-2024 Potassium [Moles/Vol] 5.0 mmol/L Normal 3.5-5.1 [facility] Comment on above: Performed By: #### C STEPHANIE, BMP #### [facility] [address] [place] [address] [place] Potassium [Moles/Vol] Potassium [Moles/v olume] in Serum or Plasma 3.5-5.1 [facility] RBC Auto (Bld) [#/Vol]Ordere d By: Calin Adams on 07-13-2024 RBC (Bld) [#/Vol] Erythrocytes [#/volu me] in Blood by Automated count Low 3.60-5.00 [facility] Serum or plasma anion gap de terminationOrdered By: Calin Adams on 07-13-2024 Anion gap [Moles/Vol] 13.1 mmol/L Normal 6.0-15.0 [facility] Comment on above: Performed By: #### C BC, BMP #### [facility] [address] Anion gap [Moles/Vol] Serum or plasma an ion gap determination 6.0-15.0 [facility] Sodium [Moles/volume] in Ser um or PlasmaOrdered By: Calin Adams on 07-13-2024 Sodium [Moles/Vol] 140 mmol/L Significant change down 136-145 [facility] Comment on above: Delta: 133 on Performed By: #### C BC, BMP #### [facility] [address] [place] [address] Sodium [Moles/Vol] Sodium [Moles/volume ] in Serum or Plasma Significant change down 136-145 [facility] Comment on above: Delta: 133 on Urea nitrogen [Mass/volume] in Serum or PlasmaOrdered By: Calin Admas on 07-13-2024 Urea nitrogen [Mass/Vol] 17 mg/dL Normal 04-13 [facility] Comment on above: Performed By: #### C BC, BMP #### [facility] [address] [place] [address] [place] Urea nitrogen [Mass/Vol] Urea nitrogen [Mass/volume] in Serum or Plasma 04-13 [facility] WBC Auto (Bld) [#/Vol]Ordere d By: Calin Adams on 07-13-2024 WBC (Bld) [#/Vol] Leukocytes [#/volume ] in Blood by Automated count High 3.8-11.6 [facility] Basic Metabolic Panelon 06-21 Anion gap [Moles/Vol] 11.1 mmol/L Normal 6.0-15.0 [facility] Comment on above: Performed By: #### P ATH TO [facility] #### [address] Calcium [Mass/Vol] 8.9 mg/dL Normal 8.6-10.3 [facility] Comment on above: Performed By: #### P ATH TO [facility] #### [place] [address] [place] Chloride [Moles/Vol] 100 mmol/L Normal 98-107 [facility] Comment on above: Performed By: #### P ATH TO [facility] #### [address] CO2 [Moles/Vol] 26.5 mmol/L Normal 21.0-31.0 [facility] Comment on above: Performed By: #### P ATH TO [facility] #### [place] [address] [place] Creatinine [Mass/Vol] 0.84 mg/dL Normal 0.60-1.20 [facility] Comment on above: Performed By: #### P ATH TO [facility] #### [place] [address] [place] Creatinine Clr Calc Pharmacy 48.87 Normal [facility] Comment on above: Result Comment: PERF ORMED BY: [place] [address] PATHOLOGIST DINING ROOM SUPERVISOR SHARIF ARNOLD M.D. Performed By: #### P ATH TO [facility] #### [place] [address] [place] GFR/1.73 sq M.predicted MDRD (S/P/Bld) [Vol rate/Area] mL/min/{1.73_m2} Normal [facility] Comment on above: Performed By: #### P ATH TO [facility] #### [place] [address] [place] Glucose [Mass/Vol] 125 mg/dL High 70-100 [facility] Comment on above: Result Comment: [place] Glucose Reference Range is dependent on time and content of last meal. Glucose of more than 200 mg/dL in a nonstressed, ambulatory subject supports the diagnosis of Diabetes Mellitus. ADA recommended reference range Performed By: #### P ATH TO [facility] #### [address] Potassium [Moles/Vol] 4.6 mmol/L Normal 3.5-5.1 [facility] Comment on above: Performed By: #### P ATH TO [facility] #### [address] Sodium [Moles/Vol] 133 mmol/L Low 136-145 [facility] Comment on above: Performed By: #### P ATH TO [facility] #### [place] [address] [place] Urea nitrogen [Mass/Vol] 14 mg/dL Normal 7-25 [facility] Comment on above: Performed By: #### P [facility] #### [address] Complete Blood Count Auto Di ffon 07-12-2024 Basophils (Bld) [#/Vol] 0.0 10*3/uL Normal 0.0-0.2 [facility] Comment on above: Result Comment: PERF ORMED BY: [place] [address] PATHOLOGIST DINING ROOM SUPERVISOR SHARIF ARNOLD M.D. Performed By: #### P [facility] #### [place] [address] [place] Basophils/100 WBC (Bld) 0.2 % Normal . [facility] Comment on above: Performed By: #### P [facility] #### [place] [address] [place] Eosinophils (Bld) [#/Vol] 0.0 10*3/uL Normal 0.0-0.45 [facility] Comment on above: Performed By: #### P [facility] #### [address] Eosinophils/100 WBC (Bld) 0.0 % Normal . [facility] Comment on above: Performed By: #### P [facility] #### [address] Erythrocyte distribution width (RBC) [Ratio] 13.3 % Normal 11.9-15.3 [facility] Comment on above: Performed By: #### P [facility] #### [address] Hematocrit (Bld) [Volume fraction] 33.3 % Low 34.0-46.4 [facility] Comment on above: Performed By: #### P [facility] #### [address] Hemoglobin (Bld) [Mass/Vol] 11.1 g/dL Low 11.8-15.4 [facility] Comment on above: Performed By: #### P [facility] #### [address] Lymphocytes (Bld) [#/Vol] 0.4 10*3/uL Low 1.00-4.8 [facility] Comment on above: Performed By: #### P [facility] #### [place] [address] [place] Lymphocytes/100 WBC (Bld) 2.2 % Normal . [facility] Comment on above: Performed By: #### P [facility] #### [address] MCH (RBC) [Entitic mass] 31.9 pg Normal 24.7-34.3 [facility] Comment on above: Performed By: #### P [facility] #### [address] MCV (RBC) [Entitic vol] 95.7 fL Normal 80-100 [facility] Comment on above: Performed By: #### P [facility] #### [facility] [address] Mean Corpuscular HGB Conc 33.3 g/dL Normal 32.0-35.0 [facility] Comment on above: Performed By: #### P [facility] #### [address] Monocytes (Bld) [#/Vol] 0.5 10*3/uL Normal 0.0-0.8 [facility] Comment on above: Performed By: #### P A[facility] TO [facility] #### [place] [address] [place] Monocytes/100 WBC (Bld) 3.1 % Normal . [facility] Comment on above: Performed By: #### P [facility] #### [address] Neutrophils (Bld) [#/Vol] 16.4 10*3/uL High 1.8-7.7 [facility] Comment on above: Performed By: #### P [facility] #### [address] Neutrophils/100 WBC (Bld) 94.5 % Normal . [facility] Comment on above: Performed By: #### P [facility] #### [address] NRBC% 0.0 /100{WBC} Normal 0-0.5 [facility] Comment on above: Performed By: #### P A[facility] TO [facility] #### [place] [address] [place] Platelet mean volume (Bld) [Entitic vol] 7.2 fL Normal 6.3-10.7 [facility] Comment on above: Performed By: #### P [facility] #### [place] [address] [place] Platelets (Bld) [#/Vol] 319 10*3/uL Normal 150-450 [facility] Comment on above: Performed By: #### P A[facility] #### [facility] [address] RBC (Bld) [#/Vol] 3.48 10*6/uL Low 3.60-5.00 [facility] Comment on above: Performed By: #### P [facility] #### [facility] [address] WBC (Bld) [#/Vol] 17.3 10*3/uL High 3.8-11.6 [facility] Comment on above: Performed By: #### P [facility] #### [address] XR lumbar spine 2-3V*on 06-21 XR lumbar spine 2-3V* [facility] Main [place] [address] [place] [address] XRay Report Signed Patient: Sj Brewster MR#: [id number] 34 : 1950 Acct:[id number] Age/Sex: 74 / F ADM Date: 07/11/24 Loc: Room: [address] [place] [address] Type: [facility] Attending Dr: Alex Francois DO Copies to: Alex Francois DO Ordering Provider: Alex Francois DO Date of Service: 07/12/24 XR/XR lumbar spine 2-3V*: postop L4-5 PLIF XR lumbar spine 2-3V* 07/12/2024 1:17 PM SIGNS AND SYMPTOMS: L4-5 posterior fixation PROTOCOLS: Frontal and lateral radiographs of the lumbar spine COMPARISON: 07/11/2024 FINDINGS: There is a dextro convex curvature with the apex at the L1-L2 intervertebral disc. There is posterior decompression and posterior/intervertebral fusion at L4-5. There is severe disc height loss at L1-L2 and L2-3. The sacrum and sacroiliac joints are normal. Atherosclerotic changes are noted in the abdominal aorta. XR/XR lumbar spine 2-3V* IMPRESSION: There is a dextro convex curvature with the apex at the L1-L2 intervertebral disc. There is posterior decompression and posterior/intervertebral fusion at L4-5. There is severe disc height loss at L1-L2 and L2-3. Impression dictated by: Yung Yeager M.D.07/12/2024 2:55 PM Dictation Location: [place] [address] Transcribed By: [facility] 07/12/241454 Dictated By: Yung Yeager II, MD 07/12/241452 Signed By: 07/12/241454 Normal [facility] ABO/Rh Retypeon 07-11-2024 ABO/RH Recheck Result Negative Normal [facility] Comment on above: Result Comment: PERF ORMED BY: [place] [address] PATHOLOGIST DINING ROOM SUPERVISOR SHARIF ARNOLD M.D. CT lumbar spine wo conon CT lumbar spine wo con [facility] [address] CT Scan Report Signed Patient: Sj Brewster MR#: [id number] 34 : 1950 Acct:[id number] Age/Sex: 74 / F ADM Date: 07/11/24 Loc: Room: [address] [place] [address] Type: [facility] Attending Dr: Alex Francois DO Copies to: Alex Francois DO Ordering Provider: Alex Francois DO Date of Service: 07/11/24 CT/CT lumbar spine wo con: post op CT lumbar spine wo con 07/11/2024 10:38 AM History:Postop L4-L5 fusion TECHNIQUE: Multi detector CT axial slices of the lumbar spine were obtained without IV contrast. Volumetric acquisition sagittal, coronal, and 3-D reconstructions were performed and reviewed on a separate workstation. CT was performed with one or more of the following dose reduction techniques: Automated exposure control, adjustment of the mA and/or kV according to patient size, or use of iterative reconstruction technique. COMPARISON: 2024 FINDINGS: There is evidence of laminectomy with posterior/transpedicular screw fixation at L4-L5. There is intervertebral fusion with bone grafts at this level. Subcutaneous edema extends along the posterior paraspinous musculature and into the epidural fat at the surgical site. There is severe disc height loss with endplate sclerosis at L1-L2 and L2-L3. There is accompanying vacuum disc phenomena. There is improvement in anterolisthesis of L4 upon L5 now measuring approximately 3 mm. There is a dextro convex curvature of the lumbar spine. The visualized lung parenchyma is unremarkable. There are uncomplicated colonic diverticula. There is a Alves catheter in the bladder. Atherosclerotic changes are noted in the abdominal aorta. CT/CT lumbar spine wo con IMPRESSION: Status post posterior decompression and fusion at L4-5 with improved alignment. No hardware complication. There is a similar dextro convex curvature of the lumbar spine. Similar multilevel degenerative changes noted. Impression dictated by: Yung Yeager M.D.07/11/2024 6:11 PM Dictation Location: [place] [address] Transcribed By: [facility] 07/11/241810 Dictated By: Yung Yeager II, MD 07/11/241807 Signed By: 07/11/241810 Normal [facility] XR lumbar spine 2-3V*on 06-21 XR lumbar spine 2-3V* [facility] Main [place] [address] [place] [address] XRay Report Signed Patient: Sj Brewster MR#: [id number] 34 : 1950 Acct:[id number] Age/Sex: 74 / F ADM Date: 07/11/24 Loc: [place] Room: Type: [facility] Attending Dr: Alex Francois DO Copies to: Alex Francois DO Ordering Provider: Alex Francois DO Date of Service: 07/11/24 XR/XR lumbar spine 2-3V*: PLIF Fluoroscopic assessment for L4-5 fixation HISTORY: L4-5 fixation 196 image was obtained. Cumulative Air Kerma in mGy: 6.4 mGy Unremarkable L4-5 posterior and interbody fusion changes. No hardware abnormality. No worrisome complication. XR/XR lumbar spine 2-3V* IMPRESSION: L4-5 lumbar fixation. Impression dictated by: Prudencio Walker M.D.07/11/2024 10:25 AM Dictation Location: [place] [address] Transcribed By: [facility] 07/11/24 1025 Dictated By: Prudencio [place] DO 07/11/24 1021 Signed By: 07/11/24 1025 Normal [facility] Activated partial thrombopla stin time (aPTT) in platelet poor plasma by coagulation aOrdered By: Alex Francois on 06-29-2024 aPTT Coag (PPP) [Time] 32.4 s 25.1-36.5 [facility] Comment on above: A hematocrit value g reater than 55% may lead to inaccurate results in coagulation testing. Patients having hematocrit values >55% require a special collection tube for coagulation studies. Please contact the laboratory at [phone] for redraw instructions. Alanine aminotransferase [En zymatic activity/volume] in Serum or PlasmaOrdered By: Alex Francois on 06-29-2024 ALT [Catalytic activity/Vol] 12 U/L Normal [facility] Comment on above: Performed By: #### P TT, PT, CMP, CBC #### [address] ALT [Catalytic activity/Vol] Alanine aminotransferase [Enzymatic activity/volume] in Serum or Plasma [facility] Albumin [Mass/volume] in Ser um or Plasma by Bromocresol green (BCG) dye binding methoOrdered By: Alex Francois on 06-29-2024 Albumin BCG dye [Mass/Vol] 4.5 g/dL 3.5-5.7 [facility] Albumin BCG dye [Mass/Vol] Albumin [Mass/volume] in Serum or Plasma by Bromocresol green (BCG) dye binding metho 3.5-5.7 [facility] Alkaline phosphatase [Enzyma tic activity/volume] in Serum or PlasmaOrdered By: Alex Francois on 06-29-2024 ALP [Catalytic activity/Vol] 53 U/L Normal 34-104 [facility] Comment on above: Result Comment: PERF ORMED BY: [facility] [address] [place] [id number] PATHOLOGIST DINING ROOM SUPERVISOR SHARIF ARNOLD M.D. Performed By: #### P TT, PT, CMP, CBC #### [facility] [address] ALP [Catalytic activity/Vol] Alkaline phosphatase [Enzymatic activity/volume] in Serum or Plasma 34-104 [facility] Aspartate aminotransferase [ Enzymatic activity/volume] in Serum or PlasmaOrdered By: Alex Francosi on 06-29-2024 AST [Catalytic activity/Vol] 14 U/L Normal 13-39 [facility] Comment on above: Performed By: #### P TT, PT, CMP, CBC #### [address] AST [Catalytic activity/Vol] Aspartate aminotransferase [Enzymatic activity/volume] in Serum or Plasma 1339 [facility] Automated basophil %Ordered By: Alex Francois on 06-29-2024 Basophils/100 WBC (Bld) 0.8 % Normal . [facility] Comment on above: Performed By: #### P TT, PT, CMP, CBC #### [address] Automated basophil countOrde red By: Alex Francois on 06-29-2024 Basophils (Bld) [#/Vol] 0.1 10*3/uL Normal 0.0-0.2 [facility] Comment on above: Result Comment: PERF ORMED BY: [place] [address] PATHOLOGIST DINING ROOM SUPERVISOR SHARIF ARNOLD M.D. Performed By: #### P TT, PT, CMP, CBC #### [address] Automated blood monocyte cou ntOrdered By: Alex Francois on 06-29-2024 Monocytes (Bld) [#/Vol] 0.4 10*3/uL Normal 0.0-0.8 [facility] Comment on above: Performed By: #### P TT, PT, CMP, CBC #### [address] Automated eosinophil %Ordere d By: Alex Francois on 06-29-2024 Eosinophils/100 WBC (Bld) 0.9 % Normal . [facility] Comment on above: Performed By: #### P TT, PT, CMP, CBC #### [facility] [address] Automated eosinophil countOr dered By: Alex Francois on 06-29-2024 Eosinophils (Bld) [#/Vol] 0.1 10*3/uL Normal 0.0-0.45 [facility] Comment on above: Performed By: #### P TT, PT, CMP, CBC #### [facility] [address] Automated monocyte %Ordered By: Alex Francois on 06-29-2024 Monocytes/100 WBC (Bld) 4.7 % Normal . [facility] Comment on above: Performed By: #### P TT, PT, CMP, CBC #### [facility] [address] Automated neutrophil %Ordere d By: Alex Francois on 06-29-2024 Neutrophils/100 WBC (Bld) 82.5 % Normal . [facility] Comment on above: Performed By: #### P TT, PT, CMP, CBC #### [address] Basophils Auto (Bld) [#/Vol] Ordered By: Alex Francois on 06-29-2024 Basophils (Bld) [#/Vol] Automated basophil count 0.0-0.2 [facility] Basophils/100 WBC Auto (Bld) Ordered By: Alex Francois on 06-29-2024 Basophils/100 WBC (Bld) Automated basophil % . [facility] Bilirubin.total [Mass/volume ] in Serum or PlasmaOrdered By: Alex Francois on 06-29-2024 Bilirubin [Mass/Vol] 0.5 mg/dL Normal 0.3-1.0 [facility] Comment on above: Performed By: #### P TT, PT, CMP, CBC #### [facility] [address] [place] [address] Bilirubin [Mass/Vol] Bilirubin.total [Mass/volume] in Serum or Plasma 0.3-1.0 [facility] Calcium [Mass/volume] in Ser um or PlasmaOrdered By: Alex Francois on 06-29-2024 Calcium [Mass/Vol] 9.6 mg/dL Normal 8.6-10.3 [facility] Comment on above: Performed By: #### P TT, PT, CMP, CBC #### [facility] [address] Calcium [Mass/Vol] Calcium [Mass/volume ] in Serum or Plasma 8.6-10.3 [facility] Carbon dioxide, total [Moles /volume] in Serum or PlasmaOrdered By: Alex Francois on 06-29-2024 CO2 [Moles/Vol] 29.6 mmol/L Normal 21.0-31.0 [facility] Comment on above: Performed By: #### P TT, PT, CMP, CBC #### [facility] [address] CO2 [Moles/Vol] Carbon dioxide, tota l [Moles/volume] in Serum or Plasma 21.0-31.0 [facility] Chloride [Moles/volume] in S dm or PlasmaOrdered By: Alex Francois on 06-29-2024 Chloride [Moles/Vol] 101 mmol/L Normal 98-107 [facility] Comment on above: Performed By: #### P TT, PT, CMP, CBC #### [facility] [address] Chloride [Moles/Vol] Chloride [Moles/vol ume] in Serum or Plasma 98-107 [facility] Complete Blood Count Auto Di ffon 06-29-2024 Mean Corpuscular HGB Conc 34.0 g/dL Normal 32.0-35.0 [facility] Comment on above: Performed By: #### P TT, PT, CMP, CBC #### [facility] [address] NRBC% 0.0 /100{WBC} Normal 0-0.5 [facility] Comment on above: Performed By: #### P TT, PT, CMP, CBC #### [facility] [address] [place] [address] Comprehensive Metabolic Pane isacc 06-29-2024 Albumin [Mass/Vol] 4.5 g/dL Normal 3.5-5.7 [facility] Comment on above: Performed By: #### P TT, PT, CMP, CBC #### [place] [address] [place] GFR/1.73 sq M.predicted MDRD (S/P/Bld) [Vol rate/Area] mL/min/{1.73_m2} Normal [facility] Comment on above: Performed By: #### P TT, PT, CMP, CBC #### [address] Creatinine [Mass/volume] in Serum or PlasmaOrdered By: Alex Francois on 06-29-2024 Creatinine [Mass/Vol] 0.71 mg/dL Normal 0.60-1.20 [facility] Comment on above: Performed By: #### P TT, PT, CMP, CBC #### [place] [address] [place] Creatinine [Mass/Vol] Creatinine [Mass/v olume] in Serum or Plasma 0.60-1.20 [facility] ECG 12 lead ECGon 06-29-2024 ECG 12 lead ECG [facility] Main [place] [address] [place] [address] Electrocardiograph Report Signed Patient: Sj Brewster MR#: [id number] 34 : 1950 Acct:[id number] Age/Sex: 74 / F ADM Date: 06/29/24 Loc: [place] Room: [facility] Attending Dr: Alex Francois DO Ordering Provider: Alex Francois DO Date of Service: 06/29/2407/13/1517 ECG/ECG 12 lead ECG: pre-op Copies to: Test Reason : Blood Pressure : */* mmHG Vent. Rate : 75 BPM Atrial Rate : 75 BPM P-R Int : 150 ms QRS Dur : 70 ms QT Int : 362 ms P-R-T Axes : 85 90 52 degrees QTcB Int : 404 ms Normal sinus rhythm Rightward axis Nonspecific ST abnormality Confirmed by Gabriela Mckeon ([id number]) on 06/30/2024 10:13:55 AM Referred By: Electronically Signed By: Gabriela Mckeon Transcribed By: [facility] Signed By Gabriela Mckeon MD 4 1013 Normal [facility] Eosinophils Auto (Bld) [#/Vo l]Ordered By: Alex Francois on 06-29-2024 Eosinophils (Bld) [#/Vol] Automated eosinophil count 0.0-0.45 [facility] Eosinophils/100 WBC Auto (Bl d)Ordered By: Alex Francois on 06-29-2024 Eosinophils/100 WBC (Bld) Automated eosinophil % . [facility] Erythrocyte distribution wid th Auto (RBC) [Ratio]Ordered By: Alex Francois on 06-29-2024 Erythrocyte distribution width (RBC) [Ratio] Erythrocyte distribution width [Ratio] by Automated count 11.9-15.3 [facility] Erythrocyte distribution wid th [Ratio] by Automated countOrdered By: Alex Francois on 06-29-2024 Erythrocyte distribution width (RBC) [Ratio] 13.5 % Normal 11.-15.3 [facility] Comment on above: Performed By: #### P TT, PT, CMP, CBC #### [facility] [address] [place] [address] [place] Erythrocytes [#/volume] in B lood by Automated countOrdered By: Alex Francois on 06-29-2024 RBC (Bld) [#/Vol] 3.64 10*6/uL Normal 3.60-5.00 [facility] Comment on above: Performed By: #### P TT, PT, CMP, CBC #### [facility] [address] [place] [address] [place] Globulin Calc (S) [Mass/Vol] Ordered By: Alex Francois on 06-29-2024 Globulin (S) [Mass/Vol] Serum globulin measurement by calculation (mass/volume) [facility] Glucose [Mass/volume] in Ser um or PlasmaOrdered By: Alex Francois on 06-29-2024 Glucose [Mass/Vol] 88 mg/dL Normal 70-100 [facility] Comment on above: ADA recommended refe rence rangeRandom Glucose Reference Range is dependent on time and content of last meal. Glucose of more than 200 mg/dL in a nonstressed, ambulatory subject supports the diagnosis of Diabetes Mellitus. Result Comment: [place] Glucose Reference Range is dependent on time and content of last meal. Glucose of more than 200 mg/dL in a nonstressed, ambulatory subject supports the diagnosis of Diabetes Mellitus. ADA recommended reference range Performed By: #### P TT, PT, CMP, CBC #### [facility] [address] Glucose [Mass/Vol] Glucose [Mass/volume ] in Serum or Plasma 70-100 [facility] Comment on above: ADA recommended refe rence rangeRandom Glucose Reference Range is dependent on time and content of last meal. Glucose of more than 200 mg/dL in a nonstressed, ambulatory subject supports the diagnosis of Diabetes Mellitus. Hematocrit Auto (Bld) [Volum e fraction]Ordered By: Alex Francois on 06-29-2024 Hematocrit (Bld) [Volume fraction] Hematocrit [Volume Fraction] of Blood by Automated count 34.0-46.4 [facility] Hematocrit [Volume Fraction] of Blood by Automated countOrdered By: Alex Francois on 06-29-2024 Hematocrit (Bld) [Volume fraction] 34.6 % Normal 34.0-46.4 [facility] Comment on above: Performed By: #### P TT, PT, CMP, CBC #### [facility] [address] [place] [address] [place] Hemoglobin [Mass/volume] in BloodOrdered By: Alex Francois on 06-29-2024 Hemoglobin (Bld) [Mass/Vol] 11.8 g/dL Normal 11.8-15.4 [facility] Comment on above: Performed By: #### P TT, PT, CMP, CBC #### [facility] [address] [place] [address] [place] Hemoglobin (Bld) [Mass/Vol] Hemoglobin [Mass/volume] in Blood 11.8-15.4 [facility] INR in Platelet poor plasma by Coagulation assayOrdered By: Alex Francois on 06-29-2024 INR Coag (PPP) [Relative time] 1.2 {INR} Normal [facility] Comment on above: INR Therapeutic Rang e A) Pre- and Peroperative OAT started two weeks before surgery. NOT HIP SURGERY: 1.5 - 2.5 HIP SURGERY: 2 - 3B) Primary and secondary prevention of venous THROMBOSIS: 2 - 3C) Active venous thrombosis, pulmonary embolismand prevention of recurrent venous thrombosis: 2 - 3D) Prevention of arterial thromboembolismincluding patients with mechanical heart valves: 3 - 4.5 Result Comment: INR Therapeutic Range A) Pre- and Peroperative OAT started two weeks before surgery. NOT HIP SURGERY: 1.5 - 2.5 HIP SURGERY: 2 - 3 B) Primary and secondary prevention of venous THROMBOSIS: 2 - 3 C) Active venous thrombosis, pulmonary embolism and prevention of recurrent venous thrombosis: 2 - 3 D) Prevention of arterial thromboembolism including patients with mechanical heart valves: 3 - 4.5 Performed By: #### P TT, PT, CMP, CBC #### [facility] [address] INR Coag (PPP) [Relative time] INR in Platelet poor plasma by Coagulation assay [facility] Comment on above: INR Therapeutic Rang e A) Pre- and Peroperative OAT started two weeks before surgery. NOT HIP SURGERY: 1.5 - 2.5 HIP SURGERY: 2 - 3B) Primary and secondary prevention of venous THROMBOSIS: 2 - 3C) Active venous thrombosis, pulmonary embolismand prevention of recurrent venous thrombosis: 2 - 3D) Prevention of arterial thromboembolismincluding patients with mechanical heart valves: 3 - 4.5 Leukocytes [#/volume] correc andrew for nucleated erythrocytes in Blood by Automated counOrdered By: Alex Francois on 06-29-2024 WBC corrected for nucl RBC Auto (Bld) [#/Vol] 8.9 10*3/uL 3.8-11.6 [facility] WBC corrected for nucl RBC Auto (Bld) [#/Vol] Leukocytes [#/volume] corrected for nucleated erythrocytes in Blood by Automated coun 3.8-11.6 [facility] Leukocytes [#/volume] in Blo od by Automated countOrdered By: Alex Francois on 06-29-2024 WBC (Bld) [#/Vol] 8.9 10*3/uL Normal 3.8-11.6 [facility] Comment on above: Performed By: #### P TT, PT, CMP, CBC #### [facility] [address] [place] [address] [place] Lymphocytes Auto (Bld) [#/Vo l]Ordered By: Alex Francois on 06-29-2024 Lymphocytes (Bld) [#/Vol] Lymphocytes [#/volume] in Blood by Automated count 1.00-4.8 [facility] Lymphocytes [#/volume] in Bl ood by Automated countOrdered By: Alex Francois on 06-29-2024 Lymphocytes (Bld) [#/Vol] 1.0 10*3/uL Normal 1.00-4.8 [facility] Comment on above: Performed By: #### P TT, PT, CMP, CBC #### [facility] [address] [place] [address] Lymphocytes/100 WBC Auto (Bl d)Ordered By: Alex Francois on 06-29-2024 Lymphocytes/100 WBC (Bld) Lymphocytes/100 leukocytes in Blood by Automated count . [facility] Lymphocytes/100 leukocytes i n Blood by Automated countOrdered By: Alex Francois on 06-29-2024 Lymphocytes/100 WBC (Bld) 11.1 % Normal . [facility] Comment on above: Performed By: #### P TT, PT, CMP, CBC #### [facility] [address] [place] [address] MCH Auto (RBC) [Entitic mass ]Ordered By: Alex Francois on 06-29-2024 MCH (RBC) [Entitic mass] MCH [Entitic mass] by Automated count 24.7-34.3 [facility] MCH [Entitic mass] by Automa andrew countOrdered By: Alex Francois on 06-29-2024 MCH (RBC) [Entitic mass] 32.4 pg Normal 24.7-34.3 [facility] Comment on above: Performed By: #### P TT, PT, CMP, CBC #### [facility] [address] MCHC Auto (RBC) [Mass/Vol]Or dered By: Alex Francois on 06-29-2024 MCHC (RBC) [Mass/Vol] 34.0 g/dL 32.0-35.0 [facility] MCHC (RBC) [Mass/Vol] MCHC [Mass/volume] by Automated count 32.0-35.0 [facility] MCV Auto (RBC) [Entitic vol] Ordered By: Alex Francois on 06-29-2024 MCV (RBC) [Entitic vol] MCV [Entitic volume] by Automated count 80-100 [facility] MCV [Entitic volume] by Auto mated countOrdered By: Alex Francois on 06-29-2024 MCV (RBC) [Entitic vol] 95.2 fL Normal 80-100 [facility] Comment on above: Performed By: #### P TT, PT, CMP, CBC #### [facility] [address] Monocytes Auto (Bld) [#/Vol] Ordered By: Alex Francois on 06-29-2024 Monocytes (Bld) [#/Vol] Automated blood monocyte count 0.0-0.8 [facility] Monocytes/100 WBC Auto (Bld) Ordered By: Alex Francois on 06-29-2024 Monocytes/100 WBC (Bld) Automated monocyte % . [facility] Neutrophils Auto (Bld) [#/Vo l]Ordered By: Alex Francois on 06-29-2024 Neutrophils (Bld) [#/Vol] Neutrophils [#/volume] in Blood by Automated count 1.8-7.7 [facility] Neutrophils [#/volume] in Bl ood by Automated countOrdered By: Alex Francois on 06-29-2024 Neutrophils (Bld) [#/Vol] 7.4 10*3/uL Normal 1.8-7.7 [facility] Comment on above: Performed By: #### P TT, PT, CMP, CBC #### [facility] [address] [place] [address] [place] Neutrophils/100 WBC Auto (Bl d)Ordered By: Alex Francois on 06-29-2024 Neutrophils/100 WBC (Bld) Automated neutrophil % . [facility] No Panel InformationOrdered By: Alex Francois on 06-29-2024 Estimated GFR (CKD-EPI) > 60.0 mL/Min [facility] Creatinine Clearance (Chem N/A [facility] Nucleated erythrocytes [Pres ence] in Blood by Automated countOrdered By: Alex Francois on 06-29-2024 Nucleated RBC Auto Ql (Bld) 0.0 /100{WBC} 0-0.5 [facility] Nucleated RBC Auto Ql (Bld) Nucleated erythrocytes [Presence] in Blood by Automated count 0-0.5 [facility] PST Type and Screenon 2023 ABO and Rh group Nom (Bld) Blood group A Rh(D) negative Normal [facility] Comment on above: Order Comment: Date of Surgery: [id number] Result Comment: PERF ORMED BY: [place] [address] PATHOLOGIST DINING ROOM SUPERVISOR SHARIF ARNOLD M.D. Partial Thromboplastin Timeo n 06-29-2024 aPTT Coag (Bld) [Time] 32.4 s Normal 25.1-36.5 [facility] Comment on above: Result Comment: A he matocrit value greater than 55% may lead to inaccurate results in coagulation testing. Patients having hematocrit values >55% require a special collection tube for coagulation studies. Please contact the laboratory at [phone] for redraw instructions. PERFORMED BY: [place] [id number] PATHOLOGIST DINING ROOM SUPERVISOR SHARIF ARNOLD M.D. Performed By: #### P TT, PT, CMP, CBC #### [facility] [address] [place] [id number] [facility] Platelet mean volume Auto (B ld) [Entitic vol]Ordered By: Alex Francois on 06-29-2024 Platelet mean volume (Bld) [Entitic vol] Platelet mean volume [Entitic volume] in Blood by Automated count 6.3-10.7 [facility] Platelet mean volume [Entiti c volume] in Blood by Automated countOrdered By: Alex Francois on 06-29-2024 Platelet mean volume (Bld) [Entitic vol] 7.1 fL Normal 6.3-10.7 [facility] Comment on above: Performed By: #### P TT, PT, CMP, CBC #### [facility] [address] Platelets Auto (Bld) [#/Vol] Ordered By: Alex Francois on 06-29-2024 Platelets (Bld) [#/Vol] Platelets [#/volume] in Blood by Automated count 150-450 [facility] Platelets [#/volume] in Bloo d by Automated countOrdered By: Alex Francois on 06-29-2024 Platelets (Bld) [#/Vol] 266 10*3/uL Normal 150-450 [facility] Comment on above: Performed By: #### P TT, PT, CMP, CBC #### [facility] [address] [place] [address] [place] Potassium [Moles/volume] in Serum or PlasmaOrdered By: Alex Francois on 06-29-2024 Potassium [Moles/Vol] 4.4 mmol/L Normal 3.5-5.1 [facility] Comment on above: Performed By: #### P TT, PT, CMP, CBC #### [facility] [address] [place] [address] Potassium [Moles/Vol] Potassium [Moles/v olume] in Serum or Plasma 3.5-5.1 [facility] Protein [Mass/volume] in Ser um or PlasmaOrdered By: Alex Francois on 06-29-2024 Protein [Mass/Vol] 7.0 g/dL Normal 6.4-8.9 [facility] Comment on above: Performed By: #### P TT, PT, CMP, CBC #### [facility] [address] [place] [address] [facility] Protein [Mass/Vol] Protein [Mass/volume ] in Serum or Plasma 6.4-8.9 [facility] Prothrombin time (PT)Ordered By: Alex Francois on 06-29-2024 PT Coag (PPP) [Time] 13.4 s High 9.0-12.9 [facility] Comment on above: A hematocrit value g reater than 55% may lead to inaccurate results in coagulation testing. Patients having hematocrit values >55% require a special collection tube for coagulation studies. Please contact the laboratory at [phone] for redraw instructions. Result Comment: A he matocrit value greater than 55% may lead to inaccurate results in coagulation testing. Patients having hematocrit values >55% require a special collection tube for coagulation studies. Please contact the laboratory at [phone] for redraw instructions. Performed By: #### P TT, PT, CMP, CBC #### [facility] [address] [place] [address] [facility] PT Coag (PPP) [Time] Prothrombin time (PT) High 9.0- 12.9 [facility] Comment on above: A hematocrit value g reater than 55% may lead to inaccurate results in coagulation testing. Patients having hematocrit values >55% require a special collection tube for coagulation studies. Please contact the laboratory at [phone] for redraw instructions. RBC Auto (Bld) [#/Vol]Ordere d By: Alex Francois on 06-29-2024 RBC (Bld) [#/Vol] Erythrocytes [#/volu me] in Blood by Automated count 3.60-5.00 [facility] Serum globulin measurement b y calculation (mass/volume)Ordered By: Alex Francois on 06-29-2024 Globulin (S) [Mass/Vol] 2.5 g/dL Normal [facility] Comment on above: Performed By: #### P TT, PT, CMP, CBC #### [facility] [address] [place] [id number] [facility] Serum or plasma albumin/glob ulin mass ratioOrdered By: Alex Francois on 06-29-2024 Albumin/Globulin [Mass ratio] 1.8 {ratio} [facility] Comment on above: Performed By: #### P TT, PT, CMP, CBC #### [facility] [address] Albumin/Globulin [Mass ratio] Serum or plasma albumin/globulin mass ratio [facility] Serum or plasma anion gap de terminationOrdered By: Alex Francois on 06-29-2024 Anion gap [Moles/Vol] 12.8 mmol/L Normal 6.0-15.0 [facility] Comment on above: Performed By: #### P TT, PT, CMP, CBC #### [facility] [address] [place] [address] Anion gap [Moles/Vol] Serum or plasma an ion gap determination 6.0-15.0 [facility] Sodium [Moles/volume] in Ser um or PlasmaOrdered By: Alex Francois on 06-29-2024 Sodium [Moles/Vol] 139 mmol/L Normal 136-145 [facility] Comment on above: Performed By: #### P TT, PT, CMP, CBC #### [facility] [address] [place] [address] Sodium [Moles/Vol] Sodium [Moles/volume ] in Serum or Plasma 136-145 [facility] Urea nitrogen [Mass/volume] in Serum or PlasmaOrdered By: Alex Francois on 06-29-2024 Urea nitrogen [Mass/Vol] 15 mg/dL Normal -25 [facility] Comment on above: Performed By: #### P TT, PT, CMP, CBC #### [facility] [address] [place] [address] [place] Urea nitrogen [Mass/Vol] Urea nitrogen [Mass/volume] in Serum or Plasma -25 [facility] WBC Auto (Bld) [#/Vol]Ordere d By: Alex Francois on 06-29-2024 WBC (Bld) [#/Vol] Leukocytes [#/volume ] in Blood by Automated count 3.8-11.6 [facility] aPTT in Platelet poor plasma by Coagulation assayOrdered By: Alex Francois on 06-29-2024 aPTT Coag (PPP) [Time] Activated partial thromboplastin time (aPTT) in platelet poor plasma by coagulation a 25.1-36.5 [facility] Comment on above: A hematocrit value g reater than 55% may lead to inaccurate results in coagulation testing. Patients having hematocrit values >55% require a special collection tube for coagulation studies. Please contact the laboratory at [phone] for redraw instructions. Office Visiton 06-22-2024 Follow-up visit [id number] Angelo Brewster 1950 F Date Provider Department Center 06/22/2024 TOMÁS LOPEZ CARD [facility] Family History Problem Relation Age of Onset Coronary artery disease Mother Coronary artery disease Father Alzheimer's disease Father Family Status - Relation Status Age at Mother Father Level of Service:44502 [place] OFFICE/OUTPATIENT ESTABLISHED LOW MDM 20 MIN Normal [facility] No Panel InformationOrdered By: Kym Sanchez on 06-21-2024 Miscellaneous Pathology Test See comment [facility] Comment on above: See report. Scanned copy available in EMR. Pathology Request for Lab Co rpon 06-21-2024 Pathology Request for Lab Trupti Normal [facility] Comment on above: Order Comment: PATHO LOGY GI SPECIMEN Result Comment: See report. Scanned copy available in EMR. PERFORMED BY: [place] [address] PATHOLOGIST DINING ROOM SUPERVISOR SHARIF ARNOLD M.D. Performed By: #### P ATH TO [facility] #### [address] lumbar spine wo conon CT lumbar spine wo con [facility] [address] CT Scan Report Signed Patient: Sj Brewster MR#: [id number] 34 : 1950 Acct:[id number] Age/Sex: 74 / F ADM Date: 06/16/24 Loc: CT Room: Type: [facility] Attending Dr: Alex Francois DO Copies to: Alex Francois DO Ordering Provider: Alex Francois DO Date of Service: 06/16/24 CT/CT lumbar spine wo con: M47.816 - Spondylosis without myelopathy or radiculopathy... CT lumbar spine wo con 2024 8:12 AM History:Preop low back pain radiating down both legs. Numbness in right leg. TECHNIQUE: Multi detector CT axial slices of the lumbar spine were obtained without IV contrast. Volumetric acquisition sagittal, coronal, and 3-D reconstructions were performed and reviewed on a separate workstation. CT was performed with one or more of the following dose reduction techniques: Automated exposure control, adjustment of the mA and/or kV according to patient size, or use of iterative reconstruction technique. COMPARISON: None FINDINGS: Scoliosis is present. Vertebral body heights appear maintained. Severe disc space narrowing L1-L2, L2-L3 and L4-L5 with endplate and facet joint degenerative changes as well as 6 mm of anterolisthesis of L4 on L5. There appears to be a unilateral pars defect at L4 on the left. Mild disc space narrowing L3-L4 and L5-S1. Transverse processes appear intact. SI joints demonstrate degenerative change. No paraspinal mass is seen. Visualized retroperitoneum demonstrates no acute findings. Visualized portions of the pelvis demonstrates sigmoid diverticulosis. CT/CT lumbar spine wo con IMPRESSION: Multilevel degenerative changes involving the lumbar spine, worst at L1-L2, L2-L3 and L4-L5 with 6 mm of anterolisthesis of L4 and L5. No acute fracture is seen. Impression dictated by: Nikolay Hinkle Jr., D.O.06/16/2024 8:52 AM Dictation Location: [place] [address] Transcribed By: [facility] 06/16/24 0852 Dictated By: Nikolay Hinkle Jr, 06/16/24 0847 Signed By: 06/16/24 0852 Normal [facility] XR lumbar spine 6V w bending on 2024 XR lumbar spine 6V w bending [facility] [place] [address] XRay Report Signed Patient: Sj Brewster MR#: [id number] 34 : 1950 Acct:[id number] Age/Sex: 74 / F ADM Date: 06/16/24 Loc: CT Room: Type: [facility] Attending Dr: Alex Francois DO Copies to: Alex Francois DO Ordering Provider: Alex Francois DO Date of Service: 06/16/24 XR/XR lumbar spine 6V w bending: M47.816 - Spondylosis without myelopathy or radiculopathy... LUMBAR SPINE - 6 views CLINICAL HISTORY: Low back pain and pain and numbness and tingling down both legs more so down the right. No known injury. COMPARISON: Lumbar spine CT performed today. FINDINGS: Scoliosis is present with multilevel degenerative disc disease best evaluated on the prior CT. Scattered endplate and facet joint degenerative changes as well as 6 mm retrolisthesis of L4 on L5 is present without pathological motion on flexion or extension views. Limited sidebending. SI joints demonstrate degenerative change. XR/XR lumbar spine 6V w bending IMPRESSION: MULTILEVEL DEGENERATIVE DISC DISEASE BETTER EVALUATED ON THE PRIOR CT. Impression dictated by: Nikolay Hinkle Jr., D.OEvita2024 8:54 AM Dictation Location: [place] [address] Transcribed By: [facility] 06/16/24 0854 Dictated By: Nikolay Hinkle Jr, DO 06/16/24 0852 Signed By: 06/16/24 0854 Normal [facility] Estimated glomerular filtrat ion rate (GFR) non- Americanon 02-16-2024 GFR/1.73 sq M.predicted among non-blacks MDRD (S/P/Bld) [Vol rate/Area] mL/min/{1.73_m2} >=60 [facility] Laboratory - Chemistry and C hemistry - challengeon 02-16-2024 Calcium [Mass/Vol] 9.1 mg/dL 8.5-10.1 [facility] Chloride [Moles/Vol] 104 mmol/L 98-107 [facility] CO2 [Moles/Vol] 31.0 mmol/L 21.0-32.0 [facility] Creatinine [Mass/Vol] 0.76 mg/dL 0.55-1.02 [facility] GFR/1.73 sq M.predicted MDRD (S/P/Bld) [Vol rate/Area] mL/min/{1.73_m2} >=60 [facility] Glucose [Mass/Vol] 98 mg/dL 74-106 [facility] Potassium [Moles/Vol] 4.8 mmol/L 3.5-5.1 [facility] Sodium [Moles/Vol] 141 mmol/L 136-145 [facility] Urea nitrogen [Mass/Vol] 13.0 mg/dL 7.0-18.0 [facility] Urea nitrogen/Creatinine [Mass ratio] 17.1 mg/mg [facility] Serum or plasma anion gap de terminationon 02-16-2024 Anion gap [Moles/Vol] 10.8 mmol/L [facility] Office Visiton 02-02-2024 Follow-up visit [id number] Angelo Brewster 1950 Date Provider Department Center 02/02/2024 JANAY LIRA Family History Problem Relation Age of Onset Coronary artery disease Mother Coronary artery disease Father Alzheimer's disease Father Family Status - Relation Status Age at Mother Father Level of Service:34281 [place] OFFICE/OUTPATIENT ESTABLISHED LOW MDM 20 MIN Normal [facility] Laboratory - Hematology and Cell countson 01-28-2024 ESR (Bld) [Velocity] 21 mm/h <=30 [facility] Office Visiton 01-05-2024 Follow-up visit [id number] Angelo Brewster 1950 Date Provider Department Center 01/05/2024 JANAY LIRA Family History Problem Relation Age of Onset Coronary artery disease Mother Coronary artery disease Father Alzheimer's disease Father Family Status - Relation Status Age at Mother Father Level of Service:37718 [place] OFFICE/OUTPATIENT ESTABLISHED LOW MDM 20 MIN Normal [facility] Basophils Auto (Bld) [#/Vol] on 12-15-2023 Basophils (Bld) [#/Vol] 0.1 10 3/uL 0.0-0.1 [facility] Basophils/100 WBC Auto (Bld) on 12-15-2023 Basophils/100 WBC (Bld) 1.1 % 0.2-2.0 [facility] Eosinophils/100 WBC Auto (Bl d)on 12-15-2023 Eosinophils/100 WBC (Bld) 3.0 % 0.9-7.0 [facility] Erythrocyte distribution wid th Auto (RBC) [Ratio]on 12-15-2023 Erythrocyte distribution width (RBC) [Ratio] 12.8 % 11.0-15.0 [facility] Estimated glomerular filtrat ion rate (GFR) non- Americanon 12-15-2023 GFR/1.73 sq M.predicted among non-blacks MDRD (S/P/Bld) [Vol rate/Area] mL/min/{1.73_m2} >=60 [facility] Globulin Calc (S) [Mass/Vol] on 12-15-2023 Globulin (S) [Mass/Vol] 3.8 g/dL [facility] Hematocrit Auto (Bld) [Volum e fraction]on 12-15-2023 Hematocrit (Bld) [Volume fraction] 36.6 % 36.0-48.0 [facility] Hemoglobin [Mass/volume] in Bloodon 12-15-2023 Hemoglobin (Bld) [Mass/Vol] 11.8 g/dL 12.0-16.0 [facility] Laboratory - Chemistry and C hemistry - challengeon 12-15-2023 Albumin [Mass/Vol] 4.0 g/dL 3.4-5.0 [facility] ALP [Catalytic activity/Vol] 63 U/L 46-116 [facility] ALT [Catalytic activity/Vol] 22 U/L 14-59 [facility] AST [Catalytic activity/Vol] 16 U/L 15-37 [facility] Bilirubin [Mass/Vol] 0.4 mg/dL 0.2-1.0 [facility] Calcium [Mass/Vol] 9.3 mg/dL 8.5-10.1 [facility] Chloride [Moles/Vol] 103 mmol/L 98-107 [facility] CO2 [Moles/Vol] 30.5 mmol/L 21.0-32.0 [facility] Creatinine [Mass/Vol] 0.75 mg/dL 0.55-1.02 [facility] Free T4 [Mass/Vol] 1.04 ng/dL 0.76-1.46 [facility] GFR/1.73 sq M.predicted MDRD (S/P/Bld) [Vol rate/Area] mL/min/{1.73_m2} >=60 [facility] Glucose [Mass/Vol] 97 mg/dL 74-106 [facility] Natriuretic peptide B (Bld) [Mass/Vol] 193.0 pg/mL <=900.0 [facility] Potassium [Moles/Vol] 4.2 mmol/L 3.5-5.1 [facility] Protein [Mass/Vol] 7.8 g/dL 6.4-8.2 [facility] Sodium [Moles/Vol] 143 mmol/L 136-145 [facility] TSH Qn 1.181 m[IU]/L 0.358-3.74 0 [facility] Urea nitrogen [Mass/Vol] 14.0 mg/dL 7.0-18.0 [facility] Urea nitrogen/Creatinine [Mass ratio] 18.7 mg/mg [facility] Laboratory - Hematology and Cell countson 12-15-2023 Immature granulocytes/100 WBC (Bld) 0.2 % 0.0-0.5 [facility] Leukocytes [#/volume] correc andrew for nucleated erythrocytes in Blood by Automated counon 12-15-2023 WBC corrected for nucl RBC Auto (Bld) [#/Vol] 6.7 10 3/uL 4.0-11.0 [facility] Lymphocytes Auto (Bld) [#/Vo l]on 12-15-2023 Lymphocytes (Bld) [#/Vol] 1.5 10 3/uL 1.2-3.8 [facility] Lymphocytes/100 WBC Auto (Bl d)on 12-15-2023 Lymphocytes/100 WBC (Bld) 22.6 % 20.5-60.0 [facility] MCH Auto (RBC) [Entitic mass ]on 12-15-2023 MCH (RBC) [Entitic mass] 31.4 pg 26.7-34.0 [facility] MCHC Auto (RBC) [Mass/Vol]on 12-15-2023 MCHC (RBC) [Mass/Vol] 32.2 g/dL 29.9-35.2 [facility] MCV Auto (RBC) [Entitic vol] on 12-15-2023 MCV (RBC) [Entitic vol] 97.3 fL 81.0-99.0 [facility] Monocytes Auto (Bld) [#/Vol] on 12-15-2023 Monocytes (Bld) [#/Vol] 0.6 10 3/uL 0.3-0.8 [facility] Monocytes/100 WBC Auto (Bld) on 12-15-2023 Monocytes/100 WBC (Bld) 8.4 % 1.7-12.0 [facility] Neutrophils Auto (Bld) [#/Vo l]on 12-15-2023 Neutrophils (Bld) [#/Vol] 4.3 10 3/uL 1.4-6.5 [facility] Neutrophils/100 WBC Auto (Bl d)on 12-15-2023 Neutrophils/100 WBC (Bld) 64.7 % 43.0-75.0 [facility] No Panel Informationon 12-14 Eosinophils # (Auto) 0.2 10 3/uL 0.0-0.7 [facility] Immature Granulocyte # (Auto) 0.01 10 3/uL 0.00-0.03 [facility] Office Visiton 12-15-2023 Follow-up visit [id number] Angelo Brewster 1950 F Date Provider Department Center 12/15/2023 Priscilla-JANAY AJ CARD [facility] Family History Problem Relation Age of Onset Coronary artery disease Mother Coronary artery disease Father Alzheimer's disease Father Family Status - Relation Status Age at Mother Father Level of Service:84173 [place] OFFICE/OUTPATIENT ESTABLISHED MOD MDM 30 MIN Normal [facility] Platelet mean volume Auto (B ld) [Entitic vol]on 12-15-2023 Platelet mean volume (Bld) [Entitic vol] 10.1 fL 9.5-13.5 [facility] Platelets Auto (Bld) [#/Vol] on 12-15-2023 Platelets (Bld) [#/Vol] 275 10 3/uL 150-450 [facility] RBC Auto (Bld) [#/Vol]on RBC (Bld) [#/Vol] 3.76 10 6/uL 4.20-5.40 [facility] Serum or plasma albumin/glob ulin mass ratioon 12-15-2023 Albumin/Globulin [Mass ratio] 1.1 {ratio} [facility] Serum or plasma anion gap de terminationon 12-15-2023 Anion gap [Moles/Vol] 13.7 mmol[facility]L [facility] Basophils Auto (Bld) [#/Vol] on 12-07-2023 Basophils (Bld) [#/Vol] 0.1 10 3/uL 0.0-0.1 [facility] Basophils/100 WBC Auto (Bld) on 12-07-2023 Basophils/100 WBC (Bld) 0.7 % 0.2-2.0 [facility] Cholesterol in LDL Calc [Mas s/Vol]on 12-07-2023 Cholesterol in LDL [Mass/Vol] 54.0 mg/dL [facility] Comment on above: <100 mg/dl [id number] 0-129 mg/dl NEAR OR ABOVE [id number] mg/dl BORDERLINE [id number] mg/dl HIGH>190 mg/dl VERY HIGH Cholesterol in VLDL Calc [Ma ss/Vol]on 12-07-2023 Cholesterol in VLDL [Mass/Vol] 38.0 mg/dL [facility] Eosinophils/100 WBC Auto (Bl d)on 12-07-2023 Eosinophils/100 WBC (Bld) 2.6 % 0.9-7.0 [facility] Erythrocyte distribution wid th Auto (RBC) [Ratio]on 12-07-2023 Erythrocyte distribution width (RBC) [Ratio] 12.9 % 11.0-15.0 [facility] Estimated glomerular filtrat ion rate (GFR) non- Americanon 12-07-2023 GFR/1.73 sq M.predicted among non-blacks MDRD (S/P/Bld) [Vol rate/Area] mL/min/{1.73_m2} >=60 [facility] Globulin Calc (S) [Mass/Vol] on 12-07-2023 Globulin (S) [Mass/Vol] 3.5 g/dL [facility] Glucose mean value [Mass/vol ume] in Blood Estimated from glycated hemoglobinon 12-07-2023 Average glucose Estimated from glycated hemoglobin (Bld) [Mass/Vol] 111 mg/dL [facility] Hematocrit Auto (Bld) [Volum e fraction]on 12-07-2023 Hematocrit (Bld) [Volume fraction] 37.5 % 36.0-48.0 [facility] Hemoglobin [Mass/volume] in Bloodon 12-07-2023 Hemoglobin (Bld) [Mass/Vol] 12.2 g/dL 12.0-16.0 [facility] Laboratory - Chemistry and C hemistry - challengeon 12-07-2023 Albumin [Mass/Vol] 3.8 g/dL 3.4-5.0 [facility] ALP [Catalytic activity/Vol] 63 U/L 46-116 [facility] ALT [Catalytic activity/Vol] 22 U/L 14-59 [facility] AST [Catalytic activity/Vol] 15 U/L 15-37 [facility] Bilirubin [Mass/Vol] 0.4 mg/dL 0.2-1.0 [facility] Calcium [Mass/Vol] 9.0 mg/dL 8.5-10.1 [facility] Chloride [Moles/Vol] 104 mmol/L 98-107 [facility] Cholesterol [Mass/Vol] 152 mg/dL <=200 [facility] Cholesterol in HDL [Mass/Vol] 60 mg/dL 40-60 [facility] Comment on above: > or =60 mg/dl - LOW CARDIOVASCULAR RISK<40 mg/dl - HIGH CARDIOVASCULAR RISK CO2 [Moles/Vol] 29.2 mmol/L 21.0-32.0 [facility] Creatinine [Mass/Vol] 0.75 mg/dL 0.55-1.02 [facility] GFR/1.73 sq M.predicted MDRD (S/P/Bld) [Vol rate/Area] mL/min/{1.73_m2} >=60 [facility] Glucose [Mass/Vol] 88 mg/dL 74-106 [facility] Potassium [Moles/Vol] 4.2 mmol/L 3.5-5.1 [facility] Protein [Mass/Vol] 7.3 g/dL 6.4-8.2 [facility] Sodium [Moles/Vol] 143 mmol/L 136-145 [facility] Triglyceride [Mass/Vol] 190 mg/dL <=150 [facility] TSH Qn 1.222 m[IU]/L 0.358-3.74 0 [facility] Urea nitrogen [Mass/Vol] 15.0 mg/dL 7.0-18.0 [facility] Urea nitrogen/Creatinine [Mass ratio] 20.0 mg/mg [facility] Laboratory - Hematology and Cell countson 12-07-2023 HbA1c (Bld) [Mass fraction] 5.5 % 4.5-6.2 [facility] Comment on above: ADA RECOMMENDED LIMI T 4.0 - 6.0ADA THERAPEUTIC TARGET < 7.0ACTION SUGGESTED> 7.0 Immature granulocytes/100 WBC (Bld) 0.1 % 0.0-0.5 [facility] Leukocytes [#/volume] correc andrew for nucleated erythrocytes in Blood by Automated counon 12-07-2023 WBC corrected for nucl RBC Auto (Bld) [#/Vol] 8.4 10 3/uL 4.0-11.0 [facility] Lymphocytes Auto (Bld) [#/Vo l]on 12-07-2023 Lymphocytes (Bld) [#/Vol] 1.4 10 3/uL 1.2-3.8 [facility] Lymphocytes/100 WBC Auto (Bl d)on 12-07-2023 Lymphocytes/100 WBC (Bld) 16.6 % 20.5-60.0 [facility] MCH Auto (RBC) [Entitic mass ]on 12-07-2023 MCH (RBC) [Entitic mass] 31.9 pg 26.7-34.0 [facility] MCHC Auto (RBC) [Mass/Vol]on 12-07-2023 MCHC (RBC) [Mass/Vol] 32.5 g/dL 29.9-35.2 [facility] MCV Auto (RBC) [Entitic vol] on 12-07-2023 MCV (RBC) [Entitic vol] 97.9 fL 81.0-99.0 [facility] Monocytes Auto (Bld) [#/Vol] on 12-07-2023 Monocytes (Bld) [#/Vol] 0.6 10 3/uL 0.3-0.8 [facility] Monocytes/100 WBC Auto (Bld) on 12-07-2023 Monocytes/100 WBC (Bld) 7.5 % 1.7-12.0 [facility] Neutrophils Auto (Bld) [#/Vo l]on 12-07-2023 Neutrophils (Bld) [#/Vol] 6.1 10 3/uL 1.4-6.5 [facility] Neutrophils/100 WBC Auto (Bl d)on 12-07-2023 Neutrophils/100 WBC (Bld) 72.5 % 43.0-75.0 [facility] No Panel Informationon 12-06 Eosinophils # (Auto) 0.2 10 3/uL 0.0-0.7 [facility] Immature Granulocyte # (Auto) 0.01 10 3/uL 0.00-0.03 [facility] Platelet mean volume Auto (B ld) [Entitic vol]on 12-07-2023 Platelet mean volume (Bld) [Entitic vol] 9.9 fL 9.5-13.5 [facility] Platelets Auto (Bld) [#/Vol] on 12-07-2023 Platelets (Bld) [#/Vol] 279 10 3/uL 150-450 [facility] RBC Auto (Bld) [#/Vol]on RBC (Bld) [#/Vol] 3.83 10 6/uL 4.20-5.40 [facility] Serum or plasma albumin/glob ulin mass ratioon 12-07-2023 Albumin/Globulin [Mass ratio] 1.1 {ratio} [facility] Serum or plasma anion gap de terminationon 12-07-2023 Anion gap [Moles/Vol] 14.0 [facility] or plasma total choles terol/high density lipoprotein (HDL) cholesterol mass darian 12-07-2023 Cholesterol.total/Chol esterol in HDL [Mass ratio] 2.5 {ratio} [facility] Comment on above: 3.3 - 4.4 LOW RISK4. 4 - 7.1 AVERAGE RISK7.1 - 11.0 MODERATE RISK>11.0 HIGH RISK Basophils Auto (Bld) [#/Vol] on 11-26-2023 Basophils (Bld) [#/Vol] 0.1 10 3/uL 0.0-0.1 [facility] Basophils/100 WBC Auto (Bld) on 11-26-2023 Basophils/100 WBC (Bld) 1.1 % 0.2-2.0 [facility] Eosinophils/100 WBC Auto (Bl d)on 11-26-2023 Eosinophils/100 WBC (Bld) 2.2 % 0.9-7.0 [facility] Erythrocyte distribution wid th Auto (RBC) [Ratio]on 11-26-2023 Erythrocyte distribution width (RBC) [Ratio] 12.7 % 11.0-15.0 [facility] Hematocrit Auto (Bld) [Volum e fraction]on 11-26-2023 Hematocrit (Bld) [Volume fraction] 36.1 % 36.0-48.0 [facility] Hemoglobin [Mass/volume] in Bloodon 11-26-2023 Hemoglobin (Bld) [Mass/Vol] 11.4 g/dL 12.0-16.0 [facility] Iron binding capacity [Mass/ volume] in Serum or Plasmaon 11-26-2023 Iron binding capacity [Mass/Vol] 295.0 ug/dL 250.0-450. 0 [facility] Iron saturation [Mass Fracti on] in Serum or Plasmaon 11-26-2023 Iron saturation [Mass fraction] 40.3 % [facility] Laboratory - Chemistry and C hemistry - challengeon 11-26-2023 Cobalamin (Vitamin B12) [Mass/Vol] 161.0 pg/mL 193.0-986. 0 [facility] Ferritin [Mass/Vol] 41.0 ng/mL 8.0-252.0 [facility] Iron [Mass/Vol] 119.0 ug/dL 50.0-170.0 [facility] - Hematology and Cell countson 11-26-2023 Immature granulocytes/100 WBC (Bld) 0.2 % 0.0-0.5 [facility] Leukocytes [#/volume] correc andrew for nucleated erythrocytes in Blood by Automated counon 11-26-2023 WBC corrected for nucl RBC Auto (Bld) [#/Vol] 6.4 10 3/uL 4.0-11.0 [facility] Lymphocytes Auto (Bld) [#/Vo l]on 11-26-2023 Lymphocytes (Bld) [#/Vol] 1.4 10 3/uL 1.2-3.8 [facility] Lymphocytes/100 WBC Auto (Bl d)on 11-26-2023 Lymphocytes/100 WBC (Bld) 21.6 % 20.5-60.0 [facility] MCH Auto (RBC) [Entitic mass ]on 11-26-2023 MCH (RBC) [Entitic mass] 31.1 pg 26.7-34.0 [facility] MCHC Auto (RBC) [Mass/Vol]on 11-26-2023 MCHC (RBC) [Mass/Vol] 31.6 g/dL 29.9-35.2 [facility] MCV Auto (RBC) [Entitic vol] on 11-26-2023 MCV (RBC) [Entitic vol] 98.6 fL 81.0-99.0 [facility] Monocytes Auto (Bld) [#/Vol] on 11-26-2023 Monocytes (Bld) [#/Vol] 0.6 10 3/uL 0.3-0.8 [facility] Monocytes/100 WBC Auto (Bld) on 11-26-2023 Monocytes/100 WBC (Bld) 9.8 % 1.7-12.0 [facility] Neutrophils Auto (Bld) [#/Vo l]on 11-26-2023 Neutrophils (Bld) [#/Vol] 4.2 10 3/uL 1.4-6.5 [facility] Neutrophils/100 WBC Auto (Bl d)on 11-26-2023 Neutrophils/100 WBC (Bld) 65.1 % 43.0-75.0 [facility] No Panel Informationon 11-25 Eosinophils # (Auto) 0.1 10 3/uL 0.0-0.7 [facility] Folate 17.80 ng/mL 8.60-58.90 [facility] Immature Granulocyte # (Auto) 0.01 10 3/uL 0.00-0.03 [facility] Platelet mean volume Auto (B ld) [Entitic vol]on 11-26-2023 Platelet mean volume (Bld) [Entitic vol] 9.7 fL 9.5-13.5 [facility] Platelets Auto (Bld) [#/Vol] on 11-26-2023 Platelets (Bld) [#/Vol] 268 10 3/uL 150-450 [facility] RBC Auto (Bld) [#/Vol]on RBC (Bld) [#/Vol] 3.66 10 6/uL 4.20-5.40 [facility] CBC AUTO DIFFon 11-24-2022 BASO # 0.0 103/ul Normal 0.0-0.1 [facility] Comment on above: Performed By: #### H FPFCBC #### [facility] [address] [address] [address] Rigo Julio Basophils/100 WBC (Bld) 0.6 % Normal 0.2-2.0 [facility] Comment on above: Performed By: #### H FPFCBC #### [facility] [address] [address] [address] Rigo Julio EO # 0.1 103/ul Normal 0.0-0.7 [facility] Comment on above: Performed By: #### H FPFCBC #### [facility] [address] [address] [address] Rigo Julio Eosinophils/100 WBC (Bld) 1.4 % Normal 0.9-7.0 [facility] Comment on above: Performed By: #### H FPFCBC #### [facility] [address] [address] [address] Rigo Julio Erythrocyte distribution width (RBC) [Ratio] 12.8 % Normal 11.0-15.0 [facility] Comment on above: Performed By: #### H FPFCBC #### [facility] [address] [address] [address] Rigo Julio Hematocrit (Bld) [Volume fraction] 37.5 % Normal 36.0-48.0 [facility] Comment on above: Performed By: #### H FPFCBC #### [facility] [address] [address] [address] Rigo Julio Hemoglobin (Bld) [Mass/Vol] 12.3 g/dL Normal 12.0-16.0 [facility] Comment on above: Performed By: #### H FPFCBC #### [facility] [address] [place] [address] Dr. Rigo Julio IG # 0.02 10e3/ul Normal 0.00-0.03 [facility] Comment on above: Performed By: #### H FPFCBC #### [facility] [address] [place] [address] Dr. Rigo Julio IG % 0.3 % Normal 0.0-0.5 [facility] Comment on above: Performed By: #### H FPFCBC #### [facility] [address] [place] [address] Dr. Rigo Julio LYMPH # 1.3 103/ul Normal 1.2-3.8 [facility] Comment on above: Performed By: #### H FPFCBC #### [facility] [address] [place] [address] Dr. Rigo Julio Lymphocytes/100 WBC (Bld) 20.1 % Critically low 20.5-60.0 [facility] Comment on above: Performed By: #### H FPFCBC #### [facility] [address] [place] [address] Dr. Rigo Julio MCH (RBC) [Entitic mass] 31.4 pg Normal 26.7-34.0 [facility] Comment on above: Performed By: #### H FPFCBC #### [facility] [address] [place] [address] Dr. Rigo Julio MCHC (RBC) [Mass/Vol] 32.8 g/dL Normal 29.9-35.2 [facility] Comment on above: Performed By: #### H FPFCBC #### [facility] [address] [place] [address] Dr. Rigo Julio MCV (RBC) [Entitic vol] 95.7 fL Normal 81.0-99.0 [facility] Comment on above: Performed By: #### H FPFCBC #### [facility] [address] [place] [address] Dr. Rigo Julio MONO # 0.5 103/ul Normal 0.3-0.8 [facility] Comment on above: Performed By: #### H FPFCBC #### [facility] [address] [place] [address] Dr. Rigo Julio Monocytes/100 WBC (Bld) 7.3 % Normal 1.7-12.0 [facility] Comment on above: Performed By: #### H FPFCBC #### [facility] [address] [place] [address] Dr. Rigo Julio NEUT # 4.6 103/ul Normal 1.4-6.5 [facility] Comment on above: Performed By: #### H FPFCBC #### [facility] [address] [place] [address] Dr. Rigo Julio Neutrophils/100 WBC (Bld) 70.3 % Normal 43.0-75.0 [facility] Comment on above: Performed By: #### H FPFCBC #### [facility] [address] [place] [address] Dr. Rigo Julio Platelet mean volume (Bld) [Entitic vol] 9.6 fL Normal 9.5-13.5 [facility] Comment on above: Performed By: #### H FPFCBC #### [facility] [address] [place] [address] Dr. Rigo Julio PLT 272 103/ul Normal 150-450 [facility] Comment on above: Performed By: #### H FPFCBC #### [facility] [address] [place] [address] Dr. Rigo Julio RBC 3.92 106/ul Critically low 4.20-5.40 [facility] Comment on above: Performed By: #### H FPFCBC #### [facility] [address] [place] [address] Dr. Rigo Julio WBC 6.5 103/ul Normal 4.0-11.0 [facility] Comment on above: Performed By: #### H FPFCBC #### [facility] [address] [place] [address] Dr. Rigo Julio [facility] GLYCOHEMOGLOBIN A1Con 11-24-2022 Glucose [Mass/Vol] 114 mg/dL Normal [facility] Comment on above: Performed By: #### H FPFA1C #### [facility] [address] [place] [address] Dr. Rigo Julio HbA1c (Bld) [Mass fraction] 5.6 % Normal 4.5-6.2 [facility] Comment on above: Performed By: #### H FPFA1C #### [facility] [address] [place] [address] Dr. [facility] Albumin [Mass/Vol] 4.2 g/dL Normal 3.4-5.0 [facility] Comment on above: Performed By: #### H FPF #### [facility] [address] [place] [address] Dr. Rigo Julio Albumin/Globulin [Mass ratio] 1.2 {ratio} Normal [facility] Comment on above: Performed By: #### H FPF #### [facility] [address] [place] [address] Dr. Rigo Julio ALP [Catalytic activity/Vol] 76 U/L Normal 46-116 [facility] Comment on above: Performed By: #### H FPF #### [facility] [address] [place] [address] Dr. Rigo Julio ALT [Catalytic activity/Vol] 23 U/L Normal 14-59 [facility] Comment on above: Performed By: #### H FPF #### [facility] [address] [place] [address] Dr. Rigo Julio AST [Catalytic activity/Vol] 19 U/L Normal 15-37 [facility] Comment on above: Performed By: #### H FPF #### [facility] [address] [place] [address] Dr. Rigo Julio Bilirubin [Mass/Vol] 0.4 mg/dL Normal 0.2-1.0 [facility] Comment on above: Performed By: #### H FPF #### [facility] [address] [place] [address] Dr. Rigo Julio Calcium [Mass/Vol] 9.2 mg/dL Normal 8.5-10.1 [facility] Comment on above: Performed By: #### H FPF #### [facility] [address] [place] [address] Dr. Rigo Julio Chloride [Moles/Vol] 105 mmol/L Normal 98-107 [facility] Comment on above: Performed By: #### H FPF #### [facility] [address] [place] [address] Dr. Rigo Julio CHOL-HDL RATIO NORM SEE BELOW Normal [facility] Comment on above: Result Comment: 3.3 - 4.4 LOW RISK 4.4 - 7.1 AVERAGE RISK 7.1 - 11.0 MODERATE RISK >11.0 HIGH RISK Performed By: #### H FPF #### [facility] [address] [place] [address] Dr. Rigo Julio Cholesterol [Mass/Vol] 158 mg/dL Normal <=200 [facility] Comment on above: Performed By: #### H FPF #### [facility] [address] [place] [address] Dr. Rigo Julio Cholesterol in HDL [Mass/Vol] 59 mg/dL Normal 40-60 [facility] Comment on above: Performed By: #### H FPF #### [facility] [address] [place] [address] Dr. Rigo Julio Cholesterol in LDL [Mass/Vol] 69.0 mg/dL Normal [facility] Comment on above: Performed By: #### H FPF #### [facility] [address] [address] [address] Rigo Julio Cholesterol.total/Chol esterol in HDL [Mass ratio] 2.7 {ratio} Normal [facility] Comment on above: Performed By: #### H FPF #### [facility] [address] [address] [address] Rigo Julio CO2 [Moles/Vol] 30.2 mmol/L Normal 21.0-32.0 [facility] Comment on above: Performed By: #### H FPF #### [facility] [address] [address] [address] Rigo Jluio Creatinine [Mass/Vol] 0.79 mg/dL Normal 0.55-1.02 [facility] Comment on above: Performed By: #### H FPF #### [facility] [address] [address] [address] Rigo Julio Globulin (S) [Mass/Vol] 3.6 g/dL Normal [facility] Comment on above: Performed By: #### H FPF #### [facility] [address] [address] [address] Rigo Julio Glucose [Mass/Vol] 99 mg/dL Normal 74-106 [facility] Comment on above: Performed By: #### H FPF #### [facility] [address] [address] [address] Rigo Julio HDL NORMAL > or = 60 mg/dl - LO W CARDIOVASCULAR RISK <40 mg/dl - HIGH CARDIOVASCULAR RISK Normal [facility] Comment on above: Performed By: #### H FPF #### [facility] [address] [address] [address] Rigo Julio LDL CALC NORMAL SEE BELOW Normal [facility] Comment on above: Result Comment: <100 mg/dl OPTIMAL 100 - 129 mg/dl NEAR OR ABOVE OPTIMAL 130 - 159 mg/dl BORDERLINE HIGH 160 - 189 mg/dl HIGH >190 mg/dl VERY HIGH Performed By: #### H FPF #### [facility] [address] [address] [address] Rigo Julio Potassium [Moles/Vol] 4.8 mmol/L Normal 3.5-5.1 [facility] Comment on above: Performed By: #### H FPF #### [facility] [address] [place] [address] Dr. Rigo Julio Protein [Mass/Vol] 7.8 g/dL Normal 6.4-8.2 [facility] Comment on above: Performed By: #### H FPF #### [facility] [address] [place] [address] Dr. Rigo Julio Sodium [Moles/Vol] 143 mmol/L Normal 136-145 [facility] Comment on above: Performed By: #### H FPF #### [facility] [address] [place] [address] Dr. Rigo Julio Triglyceride [Mass/Vol] 150 mg/dL Normal <=150 [facility] Comment on above: Performed By: #### H FPF #### [facility] [address] [place] [address] Dr. Rigo Julio TSH 1.255 uIU/mL Normal 0.358-3.74 0 [facility] Comment on above: Performed By: #### H FPF #### [facility] [address] [place] [address] Dr. Rigo Julio Urea nitrogen [Mass/Vol] 11.0 mg/dL Normal 7.0-18.0 [facility] Comment on above: Performed By: #### H FPF #### [facility] [address] [place] [address] Dr. Rigo Julio Urea nitrogen/Creatinine [Mass ratio] 13.9 mg/mg Normal [facility] Comment on above: Performed By: #### H FPF #### [facility] [address] [address] [address] Rigo Julio VLDL CALC 30.0 mg/dL Normal [facility] Comment on above: Performed By: #### H FPF #### [facility] [address] [place] [address] Dr. Rigo Julio LIPID PROFILEon 10-06-2022 CHOL-HDL RATIO NORM SEE BELOW Normal [facility] Comment on above: Result Comment: 3.3 - 4.4 LOW RISK 4.4 - 7.1 AVERAGE RISK 7.1 - 11.0 MODERATE RISK >11.0 HIGH RISK Performed By: #### L IPID, CMP #### [facility] [address] [place] [address] Dr. Rigo Julio Cholesterol [Mass/Vol] 131 mg/dL Normal <=200 [facility] Comment on above: Performed By: #### L IPID, CMP #### [facility] [address] [place] [address] Dr. Rigo Julio Cholesterol in HDL [Mass/Vol] 56 mg/dL Normal 40-60 [facility] Comment on above: Performed By: #### L IPID, CMP #### [facility] [address] [place] [address] Dr. Rigo Julio Cholesterol in LDL [Mass/Vol] 43.8 mg/dL Normal [facility] Comment on above: Performed By: #### L IPID, CMP #### [facility] [address] [place] [address] Dr. Rigo Julio Cholesterol.total/Chol esterol in HDL [Mass ratio] 2.3 {ratio} Normal [facility] Comment on above: Performed By: #### L IPID, CMP #### [facility] [address] [place] [address] Dr. Rigo Julio HDL NORMAL > or = 60 mg/dl - LO W CARDIOVASCULAR RISK <40 mg/dl - HIGH CARDIOVASCULAR RISK Normal [facility] Comment on above: Performed By: #### L IPID, CMP #### [facility] [address] [place] [address] Dr. Rigo Julio LDL CALC NORMAL SEE BELOW Normal [facility] Comment on above: Result Comment: <100 mg/dl OPTIMAL 100 - 129 mg/dl NEAR OR ABOVE OPTIMAL 130 - 159 mg/dl BORDERLINE HIGH 160 - 189 mg/dl HIGH >190 mg/dl VERY HIGH Performed By: #### L IPID, CMP #### [facility] [address] [place] [address] Dr. Rigo Julio Triglyceride [Mass/Vol] 156 mg/dL Critically high <=150 [facility] Comment on above: Performed By: #### L IPID, CMP #### [facility] [address] [address] [address] Rigo Julio VLDL CALC 31.2 mg/dL Normal [facility] Comment on above: Performed By: #### L IPID, CMP #### [facility] [address] [place] [address] Dr. Rigo Julio PROF 14(COMP METB)on 023 Albumin [Mass/Vol] 3.7 g/dL Normal 3.4-5.0 [facility] Comment on above: Performed By: #### L IPID, CMP #### [facility] [address] [place] [address] Dr. Rigo Julio Albumin/Globulin [Mass ratio] 1.1 {ratio} Normal [facility] Comment on above: Performed By: #### L IPID, CMP #### [facility] [address] [place] [address] Dr. Rigo Julio ALP [Catalytic activity/Vol] 80 U/L Normal 46-116 [facility] Comment on above: Performed By: #### L IPID, CMP #### [facility] [address] [place] [address] Dr. Rigo Julio ALT [Catalytic activity/Vol] 16 U/L Normal 14-59 [facility] Comment on above: Performed By: #### L IPID, CMP #### [facility] [address] [place] [address] Dr. Rigo Julio Anion gap [Moles/Vol] 11.7 mmol/L Normal [facility] Comment on above: Performed By: #### L IPID, CMP #### [facility] [address] [place] [address] Dr. Rigo Julio AST [Catalytic activity/Vol] 16 U/L Normal 15-37 [facility] Comment on above: Performed By: #### L IPID, CMP #### [facility] [address] [place] [address] Dr. Rigo Julio Bilirubin [Mass/Vol] 0.3 mg/dL Normal 0.2-1.0 [facility] Comment on above: Performed By: #### L IPID, CMP #### [facility] [address] [place] [address] Dr. Rigo Julio Calcium [Mass/Vol] 9.3 mg/dL Normal 8.5-10.1 [facility] Comment on above: Performed By: #### L IPID, CMP #### [facility] [address] [place] [address] Dr. Rigo Julio Chloride [Moles/Vol] 104 mmol/L Normal 98-107 [facility] Comment on above: Performed By: #### L IPID, CMP #### [facility] [address] [place] [address] Dr. Rigo Julio CO2 [Moles/Vol] 30.1 mmol/L Normal 21.0-32.0 [facility] Comment on above: Performed By: #### L IPID, CMP #### [facility] [address] [place] [address] Dr. Rigo Julio Creatinine [Mass/Vol] 0.74 mg/dL Normal 0.55-1.02 [facility] Comment on above: Performed By: #### L IPID, CMP #### [facility] [address] [place] [address] Dr. Rigo Julio EGFR-AF CYPRIOT >60 Normal >=60 [facility] Comment on above: Performed By: #### L IPID, CMP #### [facility] [address] [place] [address] Dr. Rigo Julio EGFR-NON AF CYPRIOT >60 Normal >=60 [facility] Comment on above: Performed By: #### L IPID, CMP #### [facility] [address] [place] [address] Dr. Rigo Julio Globulin (S) [Mass/Vol] 3.5 g/dL Normal [facility] Comment on above: Performed By: #### L IPID, CMP #### [facility] [address] [place] [address] Dr. Rigo Julio Glucose [Mass/Vol] 105 mg/dL Normal 74-106 [facility] Comment on above: Performed By: #### L IPID, CMP #### [facility] [address] [place] [address] Dr. Rigo Julio Potassium [Moles/Vol] 4.8 mmol/L Normal 3.5-5.1 [facility] Comment on above: Performed By: #### L IPID, CMP #### [facility] [address] [place] [address] Dr. Rigo Julio Protein [Mass/Vol] 7.2 g/dL Normal 6.4-8.2 [facility] Comment on above: Performed By: #### L IPID, CMP #### [facility] [address] [place] [address] Dr. Rigo Julio Sodium [Moles/Vol] 141 mmol/L Normal 136-145 [facility] Comment on above: Performed By: #### L IPID, CMP #### [facility] [address] [place] [address] Dr. Rigo Julio Urea nitrogen [Mass/Vol] 13.0 mg/dL Normal 7.0-18.0 [facility] Comment on above: Performed By: #### L IPID, CMP #### [facility] [address] [place] [address] Dr. Rigo Julio Urea nitrogen/Creatinine [Mass ratio] 17.6 mg/mg Normal [facility] Comment on above: Performed By: #### L IPID, CMP #### [facility] [address] [place] [address] Dr. Rigo Julio LIPID PROFILEon 04-14-2022 CHOL-HDL RATIO NORM SEE BELOW Normal [facility] Comment on above: Result Comment: 3.3 - 4.4 LOW RISK 4.4 - 7.1 AVERAGE RISK 7.1 - 11.0 MODERATE RISK >11.0 HIGH RISK Performed By: #### L IPID, LIVER #### [facility] [address] [place] [address] Dr. Rigo Julio Cholesterol [Mass/Vol] 122 mg/dL Normal <=200 [facility] Comment on above: Performed By: #### L IPID, LIVER #### [facility] [address] [address] [address] Rigo Julio Cholesterol in HDL [Mass/Vol] 58 mg/dL Normal 40-60 [facility] Comment on above: Performed By: #### L IPID, LIVER #### [facility] [address] [address] [address] Rigo Julio Cholesterol in LDL [Mass/Vol] 33.4 mg/dL Normal [facility] Comment on above: Performed By: #### L IPID, LIVER #### [facility] [address] [address] [address] Rigo Julio Cholesterol.total/Chol esterol in HDL [Mass ratio] 2.1 {ratio} Normal [facility] Comment on above: Performed By: #### L IPID, LIVER #### [facility] [address] [place] [address] Dr. Rigo Julio HDL NORMAL > or = 60 mg/dl - LO W CARDIOVASCULAR RISK <40 mg/dl - HIGH CARDIOVASCULAR RISK Normal [facility] Comment on above: Performed By: #### L IPID, LIVER #### [facility] [address] [address] [address] Rigo Julio LDL CALC NORMAL SEE BELOW Normal [facility] Comment on above: Result Comment: <100 mg/dl OPTIMAL 100 - 129 mg/dl NEAR OR ABOVE OPTIMAL 130 - 159 mg/dl BORDERLINE HIGH 160 - 189 mg/dl HIGH >190 mg/dl VERY HIGH Performed By: #### L IPID, LIVER #### [facility] [address] [address] [address] Rigo Julio Triglyceride [Mass/Vol] 153 mg/dL Critically high <=150 [facility] Comment on above: Performed By: #### L IPID, LIVER #### [facility] [address] [place] [address] Dr. Rigo Julio VLDL CALC 30.6 mg/dL Normal [facility] Comment on above: Performed By: #### L IPID, LIVER #### [facility] [address] [address] [address] Rigo Julio LIVER PROFILEon 04-14-2022 Albumin [Mass/Vol] 3.9 g/dL Normal 3.4-5.0 [facility] Comment on above: Performed By: #### L IPID, LIVER #### [facility] [address] [place] [address] Dr. Rigo Julio Albumin/Globulin [Mass ratio] 1.1 {ratio} Normal [facility] Comment on above: Performed By: #### L IPID, LIVER #### [facility] [address] [place] [address] Dr. Rigo Julio ALP [Catalytic activity/Vol] 76 U/L Normal 46-116 [facility] Comment on above: Performed By: #### L IPID, LIVER #### [facility] [address] [place] [address] Dr. Rigo Julio ALT [Catalytic activity/Vol] 21 U/L Normal 14-59 [facility] Comment on above: Performed By: #### L IPID, LIVER #### [facility] [address] [place] [address] Dr. Rigo Julio AST [Catalytic activity/Vol] 16 U/L Normal 15-37 [facility] Comment on above: Performed By: #### L IPID, LIVER #### [facility] [address] [place] [address] Dr. Rigo Julio BILI, CONJUGATED 0.1 mg/dL Normal 0.0-0.2 [facility] Comment on above: Performed By: #### L IPID, LIVER #### [facility] [address] [place] [address] Dr. Rigo Julio Bilirubin [Mass/Vol] 0.4 mg/dL Normal 0.2-1.0 [facility] Comment on above: Performed By: #### L IPID, LIVER #### [facility] [address] [place] [address] Dr. Rigo Julio Globulin (S) [Mass/Vol] 3.6 g/dL Normal [facility] Comment on above: Performed By: #### L IPID, LIVER #### [facility] [address] [place] [address] Dr. Rigo Julio Protein [Mass/Vol] 7.5 g/dL Normal 6.4-8.2 [facility] Comment on above: Performed By: #### L IPID, LIVER #### [facility] [address] [place] [address] Dr. Rigo Julio PROF 14(COMP METB)on 022 Albumin [Mass/Vol] 3.7 g/dL Normal 3.4-5.0 [facility] Comment on above: Performed By: #### C MP #### [facility] [address] [place] [address] Dr. Rigo Julio Albumin/Globulin [Mass ratio] 1.0 {ratio} Normal [facility] Comment on above: Performed By: #### C MP #### [facility] [address] [place] [address] Dr. Rigo Julio ALP [Catalytic activity/Vol] 79 U/L Normal 46-116 [facility] Comment on above: Performed By: #### C MP #### [facility] [address] [place] [address] Dr. Rigo Julio ALT [Catalytic activity/Vol] 22 U/L Normal 14-59 [facility] Comment on above: Performed By: #### C MP #### [facility] [address] [place] [address] Dr. Rigo Julio Anion gap [Moles/Vol] 10.3 mmol/L Normal [facility] Comment on above: Performed By: #### C MP #### [facility] [address] [place] [address] Dr. Rigo Julio AST [Catalytic activity/Vol] 16 U/L Normal 15-37 [facility] Comment on above: Performed By: #### C MP #### [facility] [address] [place] [address] Dr. Rigo Julio Bilirubin [Mass/Vol] 0.3 mg/dL Normal 0.2-1.0 [facility] Comment on above: Performed By: #### C MP #### [facility] [address] [place] [address] Dr. Rigo Julio Calcium [Mass/Vol] 9.2 mg/dL Normal 8.5-10.1 [facility] Comment on above: Performed By: #### C MP #### [facility] [address] [place] [address] Dr. Rigo Julio Chloride [Moles/Vol] 104 mmol/L Normal 98-107 [facility] Comment on above: Performed By: #### C MP #### [facility] [address] [place] [address] Dr. Rigo Julio CO2 [Moles/Vol] 29.7 mmol/L Normal 21.0-32.0 [facility] Comment on above: Performed By: #### C MP #### [facility] [address] [place] [address] Dr. Rigo Julio Creatinine [Mass/Vol] 0.80 mg/dL Normal 0.55-1.02 [facility] Comment on above: Performed By: #### C MP #### [facility] [address] [place] [address] Dr. Rigo Julio EGFR-AF CYPRIOT >60 Normal >=60 [facility] Comment on above: Performed By: #### C MP #### [facility] [address] [place] [address] Dr. Rigo Julio EGFR-NON AF CYPRIOT >60 Normal >=60 [facility] Comment on above: Performed By: #### C MP #### [facility] [address] [place] [address] Dr. Rigo Julio Globulin (S) [Mass/Vol] 3.8 g/dL Normal [facility] Comment on above: Performed By: #### C MP #### [facility] [address] [place] [address] Dr. Rigo Julio Glucose [Mass/Vol] 93 mg/dL Normal 74-106 [facility] Comment on above: Performed By: #### C MP #### [facility] [address] [place] [address] Dr. Rigo Julio Potassium [Moles/Vol] 5.0 mmol/L Normal 3.5-5.1 [facility] Comment on above: Performed By: #### C MP #### [facility] [address] [address] [address] Rigo Julio Protein [Mass/Vol] 7.5 g/dL Normal 6.4-8.2 [facility] Comment on above: Performed By: #### C MP #### [facility] [address] [place] [address] Dr. Rigo Julio Sodium [Moles/Vol] 139 mmol/L Normal 136-145 [facility] Comment on above: Performed By: #### C MP #### [facility] [address] [place] [address] Dr. Rigo Julio Urea nitrogen [Mass/Vol] 11.0 mg/dL Normal 7.0-18.0 [facility] Comment on above: Performed By: #### C MP #### [facility] [address] [place] [address] Dr. Rigo Julio Urea nitrogen/Creatinine [Mass ratio] 13.8 mg/mg Normal [facility] Comment on above: Performed By: #### C MP #### [facility] [address] [place] [address] Dr. Rigo Julio [facility] CBC AUTO DIFFon 11-27-2021 BASO # 0.1 103/ul Normal 0.0-0.1 [facility] Comment on above: Performed By: #### H FPFCBC #### [facility] [address] [place] [address] Dr. Rigo Julio Basophils/100 WBC (Bld) 0.9 % Normal 0.2-2.0 [facility] Comment on above: Performed By: #### H FPFCBC #### [facility] [address] [place] [address] Dr. Rigo Julio EO # 0.2 103/ul Normal 0.0-0.7 [facility] Comment on above: Performed By: #### H FPFCBC #### [facility] [address] [place] [address] Dr. Rigo Julio Eosinophils/100 WBC (Bld) 2.7 % Normal 0.9-7.0 [facility] Comment on above: Performed By: #### H FPFCBC #### [facility] [address] [place] [address] Dr. Rigo Julio Erythrocyte distribution width (RBC) [Ratio] 13.5 % Normal 11.0-15.0 [facility] Comment on above: Performed By: #### H FPFCBC #### [facility] [address] [place] [address] Dr. Rigo Julio Hematocrit (Bld) [Volume fraction] 38.8 % Normal 36.0-48.0 [facility] Comment on above: Performed By: #### H FPFCBC #### [facility] [address] [place] [address] Dr. Rigo Julio Hemoglobin (Bld) [Mass/Vol] 12.6 g/dL Normal 12.0-16.0 [facility] Comment on above: Performed By: #### H FPFCBC #### [facility] [address] [place] [address] Dr. Rigo Julio IG # 0.02 10e3/ul Normal 0.00-0.03 [facility] Comment on above: Performed By: #### H FPFCBC #### [facility] [address] [place] [address] Dr. Rigo Julio IG % 0.4 % Normal 0.0-0.5 [facility] Comment on above: Performed By: #### H FPFCBC #### [facility] [address] [place] [address] Dr. Rigo Julio LYMPH # 1.3 103/ul Normal 1.2-3.8 [facility] Comment on above: Performed By: #### H FPFCBC #### [facility] [address] [place] [address] Dr. Rigo Julio Lymphocytes/100 WBC (Bld) 22.8 % Normal 20.5-60.0 [facility] Comment on above: Performed By: #### H FPFCBC #### [facility] [address] [place] [address] Dr. Rigo Julio MCH (RBC) [Entitic mass] 30.5 pg Normal 26.7-34.0 [facility] Comment on above: Performed By: #### H FPFCBC #### [facility] [address] [place] [address] Dr. Rigo Julio MCHC (RBC) [Mass/Vol] 32.5 g/dL Normal 29.9-35.2 [facility] Comment on above: Performed By: #### H FPFCBC #### [facility] [address] [place] [address] Dr. Rigo Julio MCV (RBC) [Entitic vol] 93.9 fL Normal 81.0-99.0 [facility] Comment on above: Performed By: #### H FPFCBC #### [facility] [address] [place] [address] Dr. Rigo Julio MONO # 0.4 103/ul Normal 0.3-0.8 [facility] Comment on above: Performed By: #### H FPFCBC #### [facility] [address] [place] [address] Dr. Rigo Julio Monocytes/100 WBC (Bld) 7.3 % Normal 1.7-12.0 [facility] Comment on above: Performed By: #### H FPFCBC #### [facility] [address] [place] [address] Dr. Rigo Julio NEUT # 3.6 103/ul Normal 1.4-6.5 [facility] Comment on above: Performed By: #### H FPFCBC #### [facility] [address] [place] [address] Dr. Rigo Julio Neutrophils/100 WBC (Bld) 65.9 % Normal 43.0-75.0 [facility] Comment on above: Performed By: #### H FPFCBC #### [facility] [address] [place] [address] Dr. Rigo Julio Platelet mean volume (Bld) [Entitic vol] 9.7 fL Normal 9.5-13.5 [facility] Comment on above: Performed By: #### H FPFCBC #### [facility] [address] [address] [address] Rigo Julio PLT 333 103/ul Normal 150-450 [facility] Comment on above: Performed By: #### H FPFCBC #### [facility] [address] [address] [address] Rigo Julio RBC 4.13 106/ul Critically low 4.20-5.40 [facility] Comment on above: Performed By: #### H FPFCBC #### [facility] [address] [address] [address] Rigo Julio WBC 5.5 103/ul Normal 4.0-11.0 [facility] Comment on above: Performed By: #### H FPFCBC #### [facility] [address] [place] [address] Dr. Rigo Julio [facility] GLYCOHEMOGLOBIN A1Con 11-27-2021 Glucose [Mass/Vol] 123 mg/dL Normal [facility] Comment on above: Performed By: #### H FPFA1C #### [facility] [address] [place] [address] Dr. Rigo Julio HbA1c (Bld) [Mass fraction] 5.9 % Normal <=6.0 [facility] Comment on above: Performed By: #### H FPFA1C #### [facility] [address] [place] [address] Dr. [facility] Albumin [Mass/Vol] 4.2 g/dL Normal 3.5-5.0 [facility] Comment on above: Performed By: #### L IPID, CMP #### [facility] [address] [place] [address] Dr. Rigo Julio Albumin/Globulin [Mass ratio] 1.2 {ratio} Normal [facility] Comment on above: Performed By: #### L IPID, CMP #### [facility] [address] [place] [address] Dr. Rigo Julio ALP [Catalytic activity/Vol] 81 U/L Normal 38-126 [facility] Comment on above: Performed By: #### L IPID, CMP #### [facility] [address] [address] [address] Rigo Julio ALT [Catalytic activity/Vol] 23 U/L Normal 9-52 [facility] Comment on above: Performed By: #### L IPID, CMP #### [facility] [address] [address] [address] Rigo Julio AST [Catalytic activity/Vol] 18 U/L Normal 14-36 [facility] Comment on above: Performed By: #### L IPID, CMP #### [facility] [address] [place] [address] Dr. Rigo Julio Bilirubin [Mass/Vol] 0.3 mg/dL Normal 0.2-1.3 [facility] Comment on above: Performed By: #### L IPID, CMP #### [facility] [address] [place] [address] Dr. Rigo Julio Calcium [Mass/Vol] 9.2 mg/dL Normal 8.4-10.2 [facility] Comment on above: Performed By: #### L IPID, CMP #### [facility] [address] [place] [address] Dr. Rigo Julio Chloride [Moles/Vol] 102 mmol/L Normal 98-107 [facility] Comment on above: Performed By: #### L IPID, CMP #### [facility] [address] [place] [address] Dr. Rigo Julio CHOL-HDL RATIO NORM SEE BELOW Normal [facility] Comment on above: Result Comment: 3.3 - 4.4 LOW RISK 4.4 - 7.1 AVERAGE RISK 7.1 - 11.0 MODERATE RISK >11.0 HIGH RISK Performed By: #### L IPID, CMP #### [facility] [address] [place] [address] Dr. Rigo Julio Cholesterol [Mass/Vol] 220 mg/dL Critically high <=200 [facility] Comment on above: Performed By: #### L IPID, CMP #### [facility] [address] [place] [address] Dr. Rigo Julio Cholesterol in HDL [Mass/Vol] 54 mg/dL Normal [facility] Comment on above: Performed By: #### L IPID, CMP #### [facility] [address] [place] [address] Dr. Rigo Julio Cholesterol in LDL [Mass/Vol] 141.6 mg/dL Normal [facility] Comment on above: Performed By: #### L IPID, CMP #### [facility] [address] [place] [address] Dr. Rigo Julio Cholesterol.total/Chol esterol in HDL [Mass ratio] 4.1 {ratio} Normal [facility] Comment on above: Performed By: #### L IPID, CMP #### [facility] [address] [place] [address] Dr. Rigo Julio CO2 [Moles/Vol] 28.4 mmol/L Normal 22.0-30.0 [facility] Comment on above: Performed By: #### L IPID, CMP #### [facility] [address] [place] [address] Dr. Rigo Julio Creatinine [Mass/Vol] 0.84 mg/dL Normal 0.52-1.04 [facility] Comment on above: Performed By: #### L IPID, CMP #### [facility] [address] [place] [address] Dr. Rigo Julio Globulin (S) [Mass/Vol] 3.6 g/dL Normal [facility] Comment on above: Performed By: #### L IPID, CMP #### [facility] [address] [place] [address] Dr. Rigo Julio Glucose [Mass/Vol] 103 mg/dL Normal 74-106 [facility] Comment on above: Performed By: #### L IPID, CMP #### [facility] [address] [place] [address] Dr. Rigo Julio HDL NORMAL > or = 60 mg/dl - LO W CARDIOVASCULAR RISK <40 mg/dl - HIGH CARDIOVASCULAR RISK Normal [facility] Comment on above: Performed By: #### L IPID, CMP #### [facility] [address] [place] [address] Dr. Rigo Julio LDL CALC NORMAL SEE BELOW Normal [facility] Comment on above: Result Comment: <100 mg/dl OPTIMAL 100 - 129 mg/dl NEAR OR ABOVE OPTIMAL 130 - 159 mg/dl BORDERLINE HIGH 160 - 189 mg/dl HIGH >190 mg/dl VERY HIGH Performed By: #### L IPID, CMP #### [facility] [address] [address] [address] Rigo Julio Potassium [Moles/Vol] 5.6 mmol/L Critically high 3.4-5.0 [facility] Comment on above: Performed By: #### L IPID, CMP #### [facility] [address] [address] [address] Rigo Julio Protein [Mass/Vol] 7.8 g/dL Normal 6.1-8.2 [facility] Comment on above: Performed By: #### L IPID, CMP #### [facility] [address] [address] [address] Rigo Julio Sodium [Moles/Vol] 138 mmol/L Normal 137-145 [facility] Comment on above: Performed By: #### L IPID, CMP #### [facility] [address] [address] [address] Rigo Julio Triglyceride [Mass/Vol] 122 mg/dL Normal <=150 [facility] Comment on above: Performed By: #### L IPID, CMP #### [facility] [address] [address] [address] Rigo Julio TSH 1.542 uIU/mL Normal 0.470-4.68 0 [facility] Comment on above: Performed By: #### L IPID, CMP #### [facility] [address] [address] [address] Rigo Julio Urea nitrogen [Mass/Vol] 10.0 mg/dL Normal 7.0-17.0 [facility] Comment on above: Performed By: #### L IPID, CMP #### [facility] [address] [address] [address] Rigo Julio Urea nitrogen/Creatinine [Mass ratio] 11.9 mg/mg Normal [facility] Comment on above: Performed By: #### L IPID, CMP #### [facility] [address] [address] [address] Rigo Julio VLDL CALC 24.4 mg/dL Normal [facility] Comment on above: Performed By: #### L IPID, CMP #### [facility] [address] [place], [place] [address] Dr. Rigo Julio POC GLUCOSE LABon 04-06-2021 Glucose [Mass/Vol] 112 mg/dL High 70-100 [facility] Comment on above: Performed By: #### 3 1595 #### [facility] [address] [place] [address], [place] Glucose [Mass/Vol] 109 mg/dL High 70-100 [facility] Comment on above: Performed By: #### 5 0103 #### [facility] [address] [place] [address], [place] BASIC METABOLIC PANELon 03-20 Calcium [Mass/Vol] 8.3 mg/dL Low 8.6-10.3 [facility] Comment on above: Order Comment: No: D o not add to previous draw Performed By: #### 8 [id number] #### [facility] [address] [place] [address], [place] Chloride [Moles/Vol] 96 mmol/L Low 98-107 [facility] Comment on above: Order Comment: No: D o not add to previous draw Performed By: #### 8 [id number] #### [facility] [address] [place] [address], [place] CO2 [Moles/Vol] 29 mmol/L Normal 21-31 [facility] Comment on above: Order Comment: No: D o not add to previous draw Performed By: #### 8 [id number] #### [facility] [address] [place] [address], [place] Creatinine [Mass/Vol] 0.60 mg/dL Normal 0.60-1.20 [facility] Comment on above: Order Comment: No: D o not add to previous draw Performed By: #### 8 [id number] #### [facility] [address] [place] [address], [place] GFR/1.73 sq M.predicted among blacks MDRD (S/P/Bld) [Vol rate/Area] mL/min/{1.73_m2} Normal >60 [facility] Comment on above: Order Comment: No: D o not add to previous draw Performed By: #### 8 [id number] #### [facility] [address] [place] [address], [place] GFR/1.73 sq M.predicted among non-blacks MDRD (S/P/Bld) [Vol rate/Area] mL/min/{1.73_m2} Normal >60 [facility] Comment on above: Order Comment: No: D o not add to previous draw Performed By: #### 8 [id number] #### [facility] [address] [place] [address], [place] Glucose [Mass/Vol] 100 mg/dL Normal 70-100 [facility] Comment on above: Order Comment: No: D o not add to previous draw Performed By: #### 8 [id number] #### [facility] [address] [place] [address], [place] Potassium [Moles/Vol] 4.2 mmol/L Normal 3.5-5.1 [facility] Comment on above: Order Comment: No: D o not add to previous draw Performed By: #### 8 [id number] #### [facility] [address] [place] [address], [place] Sodium [Moles/Vol] 132 mmol/L Low 136-145 [facility] Comment on above: Order Comment: No: D o not add to previous draw Performed By: #### 8 [id number] #### [facility] [address] [place] [address], [place] Urea nitrogen [Mass/Vol] 13 mg/dL Normal 7-25 [facility] Comment on above: Order Comment: No: D o not add to previous draw Performed By: #### 8 [id number] #### [facility] [address] [place] [address], [facility] CBC COMPLETE BLOOD COUNTon 0 7- Erythrocyte distribution width (RBC) [Ratio] 14.6 % Normal 11.5-15.0 [facility] Comment on above: Order Comment: No: D o not add to previous draw Performed By: #### 8 [id number] #### [facility] [address] [place] [id number], [facility] Hematocrit (Bld) [Volume fraction] 30.4 % Low 36.0-45.0 [facility] Comment on above: Order Comment: No: D o not add to previous draw Performed By: #### 8 [id number] #### [facility] [address] [place] [address], [facility] Hemoglobin (Bld) [Mass/Vol] 10.2 g/dL Low 12.0-15.0 [facility] Comment on above: Order Comment: No: D o not add to previous draw Performed By: #### 8 [id number] #### [facility] [address] [place] [address], [facility] MCH (RBC) [Entitic mass] 30.5 pg Normal 27.0-33.0 [facility] Comment on above: Order Comment: No: D o not add to previous draw Performed By: #### 8 [id number] #### [facility] [address] [place] [id number], [facility] MCHC (RBC) [Mass/Vol] 33.6 g/dL Normal 32.0-35.0 [facility] Comment on above: Order Comment: No: D o not add to previous draw Performed By: #### 8 [id number] #### [facility] [address] [place] [address], [facility] MCV (RBC) [Entitic vol] 91.0 fL Normal 82.0-98.0 [facility] Comment on above: Order Comment: No: D o not add to previous draw Performed By: #### 8 [id number] #### [facility] [address] [place] [address], [facility] Nucleated RBC/100 WBC (Bld) [Ratio] 0 % Normal 0-0 [facility] Comment on above: Order Comment: No: D o not add to previous draw Performed By: #### 8 [id number] #### [facility] [address] [place] [address], [facility] PLAT CNT 124 10*3/uL Low 150-400 [facility] Comment on above: Order Comment: No: D o not add to previous draw Performed By: #### 8 [id number] #### [facility] [address] [place] [address], [facility] RBC (Bld) [#/Vol] 3.34 10*6/uL Low 3.80-5.00 [facility] Comment on above: Order Comment: No: D o not add to previous draw Performed By: #### 8 [id number] #### [facility] [address] [address], [facility] WBC (Bld) [#/Vol] 13.12 10*3/uL High 4.00-10.60 [facility] Comment on above: Order Comment: No: D o not add to previous draw Performed By: #### 8 [id number] #### [facility] [address] [place] [id number], [facility] MAGNESIUM BLOODon 04-05-2021 Magnesium [Mass/Vol] 1.8 mg/dL Low 1.9-2.7 [facility] Comment on above: Order Comment: No: D o not add to previous draw Performed By: #### 8 [id number] #### [facility] [address] [place] [address], [place] POC GLUCOSE LABon 04-05-2021 Glucose [Mass/Vol] 144 mg/dL High 70-100 [facility] Comment on above: Performed By: #### 3 1595 #### [facility] [address] [place] [address], [facility] Glucose [Mass/Vol] 117 mg/dL High 70-100 [facility] Comment on above: Performed By: #### 5 0103 #### [facility] [address] [place] [address], [facility] Glucose [Mass/Vol] 125 mg/dL High 70-100 [facility] Comment on above: Performed By: #### 5 0103 #### [facility] [address] [place] [address], [facility] Glucose [Mass/Vol] 108 mg/dL High 70-100 [facility] Comment on above: Performed By: #### 5 0103 #### [facility] [address] [place] [address], [place] Glucose [Mass/Vol] 116 mg/dL High 70-100 [facility] Comment on above: Performed By: #### 5 0103 #### [facility] [address] [place] [address], [facility] PORTABLE CHEST 1 VIEWon 03-20 PORTABLE CHEST 1 [facility] Department of Radiology [address] [place] [id number] Patient Name: SJ BREWSTER : 1950 Sex: F Age: Race: White Pt. Location: [place] [address] Patient Status: I Ordered Date: 04/05/2021 5:00:00 [...] therapy Electronically signed: Pam Ennis. Transcribed by: [email or web address], User Resident: Electronically Signed by: PAM ENNIS @ 04/05/2021 08:58 AM Normal [facility] Comment on above: Order Comment: evalu ate for Atelectasis BASIC METABOLIC PANELon 07- Calcium [Mass/Vol] 8.6 mg/dL Normal 8.6-10.3 [facility] Comment on above: Order Comment: No: D o not add to previous draw Performed By: #### 3 0965 #### [address] [place] [address], [facility] Chloride [Moles/Vol] 99 mmol/L Normal 98-107 [facility] Comment on above: Order Comment: No: D o not add to previous draw Performed By: #### 3 0965 #### [facility] [address] [place] [address], [place] CO2 [Moles/Vol] 25 mmol/L Normal 21-31 [facility] Comment on above: Order Comment: No: D o not add to previous draw Performed By: #### 3 0965 #### [facility] [address] [place] [address], [place] Creatinine [Mass/Vol] 0.60 mg/dL Normal 0.60-1.20 [facility] Comment on above: Order Comment: No: D o not add to previous draw Performed By: #### 3 0965 #### [facility] [address] [place] [address], [place] GFR/1.73 sq M.predicted among blacks MDRD (S/P/Bld) [Vol rate/Area] mL/min/{1.73_m2} Normal >60 [facility] Comment on above: Order Comment: No: D o not add to previous draw Performed By: #### 3 0965 #### [facility] [address] [place] [address], [place] GFR/1.73 sq M.predicted among non-blacks MDRD (S/P/Bld) [Vol rate/Area] mL/min/{1.73_m2} Normal >60 [facility] Comment on above: Order Comment: No: D o not add to previous draw Performed By: #### 3 0965 #### [facility] [address] [place] [address], [place] Glucose [Mass/Vol] 111 mg/dL High 70-100 [facility] Comment on above: Order Comment: No: D o not add to previous draw Performed By: #### 3 0965 #### [facility] [address] [place] [address], [place] Potassium [Moles/Vol] 4.0 mmol/L Normal 3.5-5.1 [facility] Comment on above: Order Comment: No: D o not add to previous draw Performed By: #### 3 0965 #### [facility] [address] [place] [address], [facility] Sodium [Moles/Vol] 130 mmol/L Low 136-145 [facility] Comment on above: Order Comment: No: D o not add to previous draw Performed By: #### 3 0965 #### [facility] [address] [place] [address], [facility] Urea nitrogen [Mass/Vol] 15 mg/dL Normal 7-25 [facility] Comment on above: Order Comment: No: D o not add to previous draw Performed By: #### 3 0965 #### [facility] [address] [place], [place] [address] CBC COMPLETE BLOOD COUNTon 0 04-04-2021 Erythrocyte distribution width (RBC) [Ratio] 15.7 % High 11.5-15.0 [facility] Comment on above: Order Comment: No: D o not add to previous draw Performed By: #### 8 [id number] #### [facility] [address] [address], [facility] Hematocrit (Bld) [Volume fraction] 30.1 % Low 36.0-45.0 [facility] Comment on above: Order Comment: No: D o not add to previous draw Performed By: #### 8 [id number] #### [facility] [address] [place] [address], [facility] Hemoglobin (Bld) [Mass/Vol] 10.0 g/dL Low 12.0-15.0 [facility] Comment on above: Order Comment: No: D o not add to previous draw Performed By: #### 8 5499 #### [facility] [address] [place] [address], [facility] IMM PLATELET FRAC 5.8 % Normal 0.8-6.3 [facility] Comment on above: Order Comment: No: D o not add to previous draw Performed By: #### 8 [id number] #### [facility] [address] [address], [facility] MCH (RBC) [Entitic mass] 29.9 pg Normal 27.0-33.0 [facility] Comment on above: Order Comment: No: D o not add to previous draw Performed By: #### 8 [id number] #### [facility] [address] [place] [address], [facility] MCHC (RBC) [Mass/Vol] 33.2 g/dL Normal 32.0-35.0 [facility] Comment on above: Order Comment: No: D o not add to previous draw Performed By: #### 8 5499 #### [facility] [address] [facility] [place] [address], [facility] MCV (RBC) [Entitic vol] 89.9 fL Normal 82.0-98.0 [facility] Comment on above: Order Comment: No: D o not add to previous draw Performed By: #### 8 5499 #### [facility] [address] [place] [address], [facility] Nucleated RBC/100 WBC (Bld) [Ratio] 0 % Normal 0-0 [facility] Comment on above: Order Comment: No: D o not add to previous draw Performed By: #### 8 [id number] #### [facility] [address] [place] [address], [facility] PLAT CNT 119 10*3/uL Low 150-400 [facility] Comment on above: Order Comment: No: D o not add to previous draw Performed By: #### 8 5499 #### [facility] [address] [place] [address], [facility] RBC (Bld) [#/Vol] 3.35 10*6/uL Low 3.80-5.00 [facility] Comment on above: Order Comment: No: D o not add to previous draw Performed By: #### 8 5499 #### [facility] [address] [place] [address], [facility] WBC (Bld) [#/Vol] 16.59 10*3/uL High 4.00-10.60 [facility] Comment on above: Order Comment: No: D o not add to previous draw Performed By: #### 8 5499 #### [facility] [address] [place] [address], [facility] MAGNESIUM BLOODon 04-04-2021 Magnesium [Mass/Vol] 1.7 mg/dL Low 1.9-2.7 [facility] Comment on above: Order Comment: No: D o not add to previous draw Performed By: #### 3 0965 #### [facility] [address] [place] [address], [facility] POC GLUCOSE LABon 04-04-2021 Glucose [Mass/Vol] 183 mg/dL High 70-100 [facility] Comment on above: Performed By: #### 8 5499 #### [facility] [address] [place] [address], [place] Glucose [Mass/Vol] 132 mg/dL High 70-100 [facility] Comment on above: Performed By: #### 3 1595 #### [facility] [address] [place] [address], [place] Glucose [Mass/Vol] 104 mg/dL High 70-100 [facility] Comment on above: Performed By: #### 8 5499 #### [facility] [address] [place] [address], [place] Glucose [Mass/Vol] 121 mg/dL High 70-100 [facility] Comment on above: Performed By: #### 8 5499 #### [facility] [address] [place] [address], [place] PORTABLE CHEST 1 VIEWon 03-20 PORTABLE CHEST 1 [facility] Department of Radiology [address] [place] [address] Patient Name: SJ BREWSTER : 1950 Sex: F Age: Race: White Pt. Location: [place] [address] Patient Status: I Ordered Date: 04/04/2021 5:00:00 [...] today. Electronically signed: Roney Vigil. Transcribed by: [email or web address], User Resident: Electronically Signed by: RONEY VIGIL @ 04/04/2021 06:56 AM Normal [facility] Comment on above: Order Comment: Atele ctasis APTTon 04-03-2021 aPTT Coag (Bld) [Time] 33.2 s Normal 25.0-35.0 [facility] Comment on above: Order Comment: post [...] PURPOSE. Performed By: #### 8 5499 #### [facility] [address] [place] [address], [facility] BASIC METABOLIC PANELon 03-20 Calcium [Mass/Vol] 8.5 mg/dL Low 8.6-10.3 [facility] Comment on above: Order Comment: Check Chest Tube Position, ON ARRIVAL TO CVU Performed By: #### 0 0071, [id number] ####[facility] [place] [address], [facility] Chloride [Moles/Vol] 107 mmol/L Normal 98-107 [facility] Comment on above: Order Comment: Check Chest Tube Position, ON ARRIVAL TO CVU Performed By: #### 0 0071, 53220 ####[facility] [place] [address], [place] CO2 [Moles/Vol] 26 mmol/L Normal 21-31 [facility] Comment on above: Order Comment: Check Chest Tube Position, ON ARRIVAL TO CVU Performed By: #### 0 0071, 21444 ####[facility] [place] [address], [facility] Creatinine [Mass/Vol] 0.56 mg/dL Low 0.60-1.20 [facility] Comment on above: Order Comment: Check Chest Tube Position, ON ARRIVAL TO CVU Performed By: #### 0 0071, 16489 ####[facility] [place] [address], [facility] GFR/1.73 sq M.predicted among blacks MDRD (S/P/Bld) [Vol rate/Area] mL/min/{1.73_m2} Normal >60 [facility] Comment on above: Order Comment: Check Chest Tube Position, ON ARRIVAL TO CVU Performed By: #### 0 0071, 28397 ####[facility] [place] [address], [place] GFR/1.73 sq M.predicted among non-blacks MDRD (S/P/Bld) [Vol rate/Area] mL/min/{1.73_m2} Normal >60 [facility] Comment on above: Order Comment: Check Chest Tube Position, ON ARRIVAL TO CVU Performed By: #### 0 0071, 73871 ####[facility] [place] [address], [facility] Glucose [Mass/Vol] 123 mg/dL High 70-100 [facility] Comment on above: Order Comment: Check Chest Tube Position, ON ARRIVAL TO CVU Performed By: #### 0 0071, 68441 ####[facility] [place] [address], [facility] Potassium [Moles/Vol] 4.2 mmol/L Normal 3.5-5.1 [facility] Comment on above: Order Comment: Check Chest Tube Position, ON ARRIVAL TO CVU Performed By: #### 0 0071, 91645 ####[facility] [place] [address], [place] Sodium [Moles/Vol] 137 mmol/L Normal 136-145 [facility] Comment on above: Order Comment: Check Chest Tube Position, ON ARRIVAL TO CVU Performed By: #### 0 0071, 54652 ####[facility] [place] [address], [place] Urea nitrogen [Mass/Vol] 12 mg/dL Normal 7-25 [facility] Comment on above: Order Comment: Check Chest Tube Position, ON ARRIVAL TO CVU Performed By: #### 0 0071, 76855 ####[facility] [place] [address], [facility] CBC COMPLETE BLOOD COUNTon 0 04-03-2021 Erythrocyte distribution width (RBC) [Ratio] 16.4 % High 11.5-15.0 [facility] Comment on above: Order Comment: post op day 1No: Do not add to previous draw Performed By: #### 8 5499 #### [facility] [address] [place] [address], [place] Hematocrit (Bld) [Volume fraction] 32.0 % Low 36.0-45.0 [facility] Comment on above: Order Comment: post op day 1No: Do not add to previous draw Performed By: #### 8 5499 #### [facility] [address] [place] [address], [place] Hemoglobin (Bld) [Mass/Vol] 11.0 g/dL Low 12.0-15.0 [facility] Comment on above: Order Comment: post op day 1No: Do not add to previous draw Performed By: #### 8 5499 #### [facility] [address] [place] [address], [place] MCH (RBC) [Entitic mass] 30.0 pg Normal 27.0-33.0 [facility] Comment on above: Order Comment: post op day 1No: Do not add to previous draw Performed By: #### 8 5499 #### [facility] [address] [place] [address], [place] MCHC (RBC) [Mass/Vol] 34.4 g/dL Normal 32.0-35.0 [facility] Comment on above: Order Comment: post op day 1No: Do not add to previous draw Performed By: #### 8 5499 #### [facility] [address] [place] [address], [place] MCV (RBC) [Entitic vol] 87.2 fL Normal 82.0-98.0 [facility] Comment on above: Order Comment: post op day 1No: Do not add to previous draw Performed By: #### 8 5499 #### [facility] [address] [place] [id number], [place] Nucleated RBC/100 WBC (Bld) [Ratio] 0 % Normal 0-0 [facility] Comment on above: Order Comment: post op day 1No: Do not add to previous draw Performed By: #### 8 5499 #### [facility] [address] [place] [id number], [place] PLAT CNT 125 10*3/uL Low 150-400 [facility] Comment on above: Order Comment: post op day 1No: Do not add to previous draw Performed By: #### 8 5499 #### [facility] [address] [place] [id number], [facility] RBC (Bld) [#/Vol] 3.67 10*6/uL Low 3.80-5.00 [facility] Comment on above: Order Comment: post op day 1No: Do not add to previous draw Performed By: #### 8 5499 #### [facility] [address] [place] [address], [place] WBC (Bld) [#/Vol] 14.47 10*3/uL High 4.00-10.60 [facility] Comment on above: Order Comment: post op day 1No: Do not add to previous draw Performed By: #### 8 5499 #### [facility] [address] [place] [id number], [place] COOXIMETRYon 04-03-2021 COHB 2 % Normal [facility] Comment on above: Performed By: #### 3 0965 #### [facility] [address] [place] [address], [place] METHB 1 % Normal [facility] Comment on above: Performed By: #### 3 0965 #### [facility] [address] Oxygen saturation in Blood 70.5 % Normal 65.0-75.0 [facility] Comment on above: Performed By: #### 3 0965 #### [facility] [address] THB 11.0 g/dL Normal [facility] Comment on above: Performed By: #### 3 0965 #### [facility] [address] LACTATE BLOODon 04-03-2021 Lactate [Moles/Vol] 0.9 mmol/L Normal 0.5-2.2 [facility] Comment on above: Order Comment: Check Chest Tube Position, ON ARRIVAL TO CVU Performed By: #### 1 0054 ####[facility] MAGNESIUM BLOODon 04-03-2021 Magnesium [Mass/Vol] 2.2 mg/dL Normal 1.9-2.7 [facility] Comment on above: Order Comment: Check Chest Tube Position, ON ARRIVAL TO CVU Performed By: #### 0 0071, 03266 ####[facility] Operative Reporton 1 Operative Report MR#: [id number] [facility] Pt. Name: Sj Brewster Room #: NAYE [id number] Discharge Date: Birthdate: 1950 OPERATIVE REPORT DATE [...] harvesting of the left greater saphenous vein. STAFF COMBAT INFORMATION CENTER OFFICER: Ernestina. ANESTHESIA: General with endotracheal intubation. ANESTHESIOLOGIST: [...] and ascending aorta was cannulated with an 18-Micronesian Opti cannula using Seldinger technique. This was [...] to the posterior descending artery and a [id number] anastomosis was constructed in a cruciate fashion [...] p (more content not included)... Normal [facility] POC GLUCOSE LABon 04-03-2021 Glucose [Mass/Vol] 133 mg/dL High 70-100 [facility] Comment on above: Performed By: #### 3 8806 #### [facility] [address] Glucose [Mass/Vol] 112 mg/dL High 70-100 [facility] Comment on above: Performed By: #### 3 5942 #### [facility] [address] [place] [address], [place] Glucose [Mass/Vol] 120 mg/dL High 70-100 [facility] Comment on above: Performed By: #### 8 5499 #### [facility] [address] [place] [address], [place] Glucose [Mass/Vol] 123 mg/dL High 70-100 [facility] Comment on above: Performed By: #### 3 1595 #### [facility] [address] [place] [address], [place] Glucose [Mass/Vol] 105 mg/dL High 70-100 [facility] Comment on above: Performed By: #### 8 5499 #### [facility] [address] [place] [address], [place] Glucose [Mass/Vol] 127 mg/dL High 70-100 [facility] Comment on above: Performed By: #### 3 1595 #### [facility] [address] [place] [address], [place] Glucose [Mass/Vol] 154 mg/dL High 70-100 [facility] Comment on above: Performed By: #### 3 1595 #### [facility] [address] [place] [address], [place] Glucose [Mass/Vol] 149 mg/dL High 70-100 [facility] Comment on above: Performed By: #### 3 1595 #### [facility] [address] [place] [address], [place] PORTABLE CHEST 1 VIEW 03-20 PORTABLE CHEST 1 [facility] Department of Radiology [address] [place] [id number] Patient Name: SJ BREWSTER : 1950 Sex: F Age: Race: White Pt. Location: [place] [address] Patient Status: I Ordered Date: 04/03/2021 5:30:00 [...] of median sternotomy. Removal of previously seen [place]-Ayan catheter, mediastinal drain, left basilar chest tube. [...] Patel. Electronically signed: DENISE PATEL. Transcribed by: [email or web address], User Resident: Electronically Signed by: DENISE PATEL @ 04/03/2021 07:17 PM Normal [facility] Comment on above: Order Comment: evalu ate for Pneumothorax PORTABLE CHEST 1 [facility] Department of Radiology [address] [place] [id number] Patient Name: SJ BREWSTER : 1950 Sex: F Age: Race: White Pt. Location: [id number] Patient Status: I Ordered Date: 04/03/2021 7:00:00 [...] tube and NG tube have been removed, [place]-Ayan catheter tip remains in the pulmonary outflow tract. Mediastinal and left-sided chest tubes remain no pneumothorax identified. Minimal bibasilar atelectasis suggested, otherwise lungs IMPRESSION: Status post extubation. Minimal atelectasis over both lung bases. No change in chest tubes. Electronically signed: Roney Vigil. Transcribed by: [email or web address], User Resident: Electronically Signed by: RONEY VIGIL @ 04/03/2021 09:03 AM Normal [facility] Comment on above: Order Comment: evalu ate Chest Tube Position PROTHROMBIN TIMEon INR Coag (PPP) [Relative time] 1.33 {INR} High 0.91-1.16 [facility] Comment on above: Order Comment: post op day 1No: Do not add to previous draw Result Comment: ACCC P RECOMMENDED INR FOR WARFARIN THERAPY --------- ------- CONDITION INR PROPHYLAXIS OF VENOUS THROMBOSIS 2-3 (HIGH-RISK SURGERY) TREATMENT OF VENOUS THROMBOSIS 2-3 TREATMENT OF PULMONARY EMBOLISM 2-3 PREVENTION OF SYSTEMIC EMBOLISM: 2-3 ACUTE MYOCARDIAL INFARCTION TISSUE HEART VALVES VALVULAR HEART DISEASE ATRIAL FIBRILLATION RECURRENT SYSTEMIC EMBOLISM MECHANICAL HEART VALVE 2.5-3.5 FROM: ORAL ANTICOAGULANTS. MECHANISM OF ACTION, CLINICAL EFFECTIVENESS, AND OPTIMAL THERAPEUTIC RANGE. CHEST 1995;108:231S-246S. Performed By: #### 8 5499 #### [facility] [address] [place] [address], [facility] PT Coag (PPP) [Time] 16.5 s High 12.3-14.8 [facility] Comment on above: Order Comment: post op day 1No: Do not add to previous draw Result Comment: ALL RESULTS MUST BE INTERPRETED WITH RESPECT TO BLOOD DRAWING ARTIFACT OR DILUTION ERROR OF ANTICOAGULANT AT THE TIME OF SAMPLING. Performed By: #### 8 5499 #### [facility] [address] [place] [address], [place] ACTIVATED CLOTTING TIMEon ACTIVATED CLOTTING TIME 121 sec Normal 82-152 [facility] Comment on above: Performed By: #### 8 5499 #### [facility] [address] [place] [address], [place] ACTIVATED CLOTTING TIME 126 sec Normal 82-152 [facility] Comment on above: Performed By: #### 8 5499 #### [facility] [address] [place] [address], [place] ACTIVATED CLOTTING TIME 132 sec Normal 82-152 [facility] Comment on above: Performed By: #### 3 0739 #### [facility] [address] [place] [address], [place] ACTIVATED CLOTTING TIME 655 sec High 82-152 [facility] Comment on above: Performed By: #### 3 1976 #### [facility] [address] [place] [address], [place] ACTIVATED CLOTTING TIME 484 sec High 82-152 [facility] Comment on above: Performed By: #### 3 1976 #### [facility] [address] [place] [address], [place] ACTIVATED CLOTTING TIME 599 sec High 82-152 [facility] Comment on above: Performed By: #### 8 5499 #### [facility] [address] [place] [address], [place] ACTIVATED CLOTTING TIME 694 sec High 82-152 [facility] Comment on above: Performed By: #### 8 5499 #### [facility] [address] [place] [address], [place] ACTIVATED CLOTTING TIME 484 sec High 82-152 [facility] Comment on above: Performed By: #### 8 5499 #### [facility] [address] [place] [address], [place] ACTIVATED CLOTTING TIME 416 sec High 82-152 [facility] Comment on above: Performed By: #### 3 1976 #### [facility] [address] [place] [address], [place] ACTIVATED CLOTTING TIME 121 sec Normal 82-152 [facility] Comment on above: Performed By: #### 3 1976 #### [facility] [address] [place] [address], [facility] APTTon 04-02-2021 aPTT Coag (Bld) [Time] 32.6 s Normal 25.0-35.0 [facility] Comment on above: Order Comment: No: [...] PURPOSE. Performed By: #### 8 5499 #### [facility] [address] [place] [address], [facility] aPTT Coag (Bld) [Time] 43.1 s High 25.0-35.0 [facility] Comment on above: Result Comment: ALL [...] PURPOSE. Performed By: #### 8 5499 #### [facility] [address] [place] [address], [facility] ARTERIAL BLOOD GAS WITH ICAo n 04-02-2021 BASE EXCESS -5 mmol/L Low -2-3 [facility] Comment on above: Performed By: #### 3 0965 #### [facility] [address] [place] [address], [place] BILEVEL 5 Normal [facility] Comment on above: Performed By: #### 3 0965 #### [facility] [address] [place] [address], [place] DELIVERY SYSTEMS MV Normal [facility] Comment on above: Performed By: #### 3 0965 #### [facility] [address] FIO2 40 % Normal [facility] Comment on above: Performed By: #### 3 0965 #### [facility] [address] [place] [address], [facility] HCO3 (Bld) [Moles/Vol] 20 mmol/L Low 21-28 [facility] Comment on above: Performed By: #### 3 0965 #### [facility] [address] IONIZED CALCIUM 1.28 mmol/L Normal 1.13-1.32 [facility] Comment on above: Performed By: #### 3 0965 #### [facility] [address] [place] [address], [facility] MIN VOLUME 7.1 Normal [facility] Comment on above: Performed By: #### 3 0965 #### [facility] [address] MODALITY SPONT Normal [facility] Comment on above: Performed By: #### 3 0965 #### [facility] [address] Oxygen (Bld) [Partial pressure] 156 mm[Hg] Critically high 83-108 [facility] Comment on above: Performed By: #### 3 0965 #### [facility] [address] Oxygen saturation in Blood 97.2 % High 94.0-97.0 [facility] Comment on above: Performed By: #### 3 0965 #### [facility] [address] [place] [address], [facility] PCO2 37 mmHg Normal 35-45 [facility] Comment on above: Performed By: #### 3 0965 #### [facility] [address] [place] [address], [facility] PEEP 6.0 CMH20 Normal [facility] Comment on above: Performed By: #### 3 0965 #### [facility] [address] [place] [address], [facility] pH (Bld) 7.34 [pH] Low 7.35-7.45 [facility] Comment on above: Performed By: #### 3 0965 #### [facility] [address] [place] [address], [facility] BASE EXCESS -5 mmol/L Low -2-3 [facility] Comment on above: Order Comment: on ar rival to CVU Performed By: #### 8 5499 #### [facility] [address] DELIVERY SYSTEMS MV Normal [facility] Comment on above: Order Comment: on ar rival to CVU Performed By: #### 8 5499 #### [facility] [address] [place] [address], [facility] FIO2 40 % Normal [facility] Comment on above: Order Comment: on ar rival to CVU Performed By: #### 8 5499 #### [facility] [address] [place] [address], [facility] HCO3 (Bld) [Moles/Vol] 19 mmol/L Low 21-28 [facility] Comment on above: Order Comment: on ar rival to CVU Performed By: #### 8 5499 #### [facility] [address] [place] [address], [facility] IONIZED CALCIUM 1.38 mmol/L High 1.13-1.32 [facility] Comment on above: Order Comment: on ar rival to CVU Performed By: #### 8 5499 #### [facility] [address] [place] [id number], [facility] MIN VOLUME 8.0 Normal [facility] Comment on above: Order Comment: on ar rival to CVU Performed By: #### 8 5499 #### [facility] [address] [place] [address], [place] MODALITY SIMV Normal [facility] Comment on above: Order Comment: on ar rival to CVU Performed By: #### 8 5499 #### [facility] [address] [place] [address], [place] Oxygen (Bld) [Partial pressure] 192 mm[Hg] Critically high 83-108 [facility] Comment on above: Order Comment: on ar rival to CVU Performed By: #### 8 5499 #### [facility] [address] [place] [address], [place] Oxygen saturation in Blood 97.6 % High 94.0-97.0 [facility] Comment on above: Order Comment: on ar rival to CVU Performed By: #### 8 5499 #### [facility] [address] [place] [address], [place] PCO2 31 mmHg Low 35-45 [facility] Comment on above: Order Comment: on ar rival to CVU Performed By: #### 8 5499 #### [facility] [address] [place] [address], [place] PEEP 5.0 CMH20 Normal [facility] Comment on above: Order Comment: on ar rival to CVU Performed By: #### 8 5499 #### [facility] [address] [place] [address], [place] pH (Bld) 7.39 [pH] Normal 7.35-7.45 [facility] Comment on above: Order Comment: on ar rival to CVU Performed By: #### 8 5499 #### [facility] [address] [place] [address], [place] PRESSURE SUPPORT 8 Normal [facility] Comment on above: Order Comment: on ar rival to CVU Performed By: #### 8 5499 #### [facility] [address] [place] [address], [facility] Respiratory rate 14 /min Normal [facility] Comment on above: Order Comment: on ar rival to CVU Performed By: #### 8 5499 #### [facility] [address] [place] [address], [place] TIDAL VOLUME (VT) CC 450 Normal [facility] Comment on above: Order Comment: on ar rival to CVU Performed By: #### 8 5499 #### [facility] [address] [place] [address], [place] BASIC METABOLIC PANELon - Calcium [Mass/Vol] 8.8 mg/dL Normal 8.6-10.3 [facility] Comment on above: Order Comment: Check Chest Tube Position, ON ARRIVAL TO CVU Performed By: #### 0 0071, 28091, 49633 ####[facility] [place] [address], [place] Chloride [Moles/Vol] 108 mmol/L High 98-107 [facility] Comment on above: Order Comment: Check Chest Tube Position, ON ARRIVAL TO CVU Performed By: #### 0 0071, 56916, 98431 ####[facility] [place] [address], [place] CO2 [Moles/Vol] 25 mmol/L Normal 21-31 [facility] Comment on above: Order Comment: Check Chest Tube Position, ON ARRIVAL TO CVU Performed By: #### 0 0071, 04995, 69512 ####[facility] [place] [address], [place] Creatinine [Mass/Vol] 0.57 mg/dL Low 0.60-1.20 [facility] Comment on above: Order Comment: Check Chest Tube Position, ON ARRIVAL TO CVU Performed By: #### 0 0071, 20619, 30847 ####[facility] [place] [address], [facility] GFR/1.73 sq M.predicted among blacks MDRD (S/P/Bld) [Vol rate/Area] mL/min/{1.73_m2} Normal >60 [facility] Comment on above: Order Comment: Check Chest Tube Position, ON ARRIVAL TO CVU Performed By: #### 0 0071, 20352, 32525 ####[facility] [place] [address], [facility] GFR/1.73 sq M.predicted among non-blacks MDRD (S/P/Bld) [Vol rate/Area] mL/min/{1.73_m2} Normal >60 [facility] Comment on above: Order Comment: Check Chest Tube Position, ON ARRIVAL TO CVU Performed By: #### 0 0071, 22658, 08678 ####[place] [address] [place] [address], [facility] Glucose [Mass/Vol] 164 mg/dL High 70-100 [facility] Comment on above: Order Comment: Check Chest Tube Position, ON ARRIVAL TO CVU Performed By: #### 0 0071, 26155, 37103 ####[facility] [place] [address], [facility] Potassium [Moles/Vol] 3.8 mmol/L Normal 3.5-5.1 [facility] Comment on above: Order Comment: Check Chest Tube Position, ON ARRIVAL TO CVU Performed By: #### 0 0071, 89994, 23772 ####[facility] [place] [address], [place] Sodium [Moles/Vol] 139 mmol/L Normal 136-145 [facility] Comment on above: Order Comment: Check Chest Tube Position, ON ARRIVAL TO CVU Performed By: #### 0 0071, 65490, 21415 ####[facility] [place] [address], [place] Urea nitrogen [Mass/Vol] 10 mg/dL Normal 7-25 [facility] Comment on above: Order Comment: Check Chest Tube Position, ON ARRIVAL TO CVU Performed By: #### 0 0071, 11444, 37735 ####[facility] [place] [address], [facility] Calcium [Mass/Vol] 9.4 mg/dL Normal 8.6-10.3 [facility] Comment on above: Performed By: #### 0 0071, 41687 ####[facility] [place] [address], [place] Chloride [Moles/Vol] 111 mmol/L High 98-107 [facility] Comment on above: Performed By: #### 0 0071, 66923 ####[facility] [place] [address], [facility] CO2 [Moles/Vol] 23 mmol/L Normal 21-31 [facility] Comment on above: Performed By: #### 0 0071, 15847 ####[facility] [place] [address], [facility] Creatinine [Mass/Vol] 0.49 mg/dL Low 0.60-1.20 [facility] Comment on above: Performed By: #### 0 0071, 61087 ####[facility] [place] [address], [place] GFR/1.73 sq M.predicted among blacks MDRD (S/P/Bld) [Vol rate/Area] mL/min/{1.73_m2} Normal >60 [facility] Comment on above: Performed By: #### 0 0071, 78763 ####[facility] [place] [address], [place] GFR/1.73 sq M.predicted among non-blacks MDRD (S/P/Bld) [Vol rate/Area] mL/min/{1.73_m2} Normal >60 [facility] Comment on above: Performed By: #### 0 0071, 62521 ####[facility] [place] [address], [facility] Glucose [Mass/Vol] 138 mg/dL High 70-100 [facility] Comment on above: Performed By: #### 0 0071, 68867 ####[facility] [place] [address], [facility] Potassium [Moles/Vol] 3.9 mmol/L Normal 3.5-5.1 [facility] Comment on above: Performed By: #### 0 0071, 05645 ####[facility] [place] [address], [facility] Sodium [Moles/Vol] 140 mmol/L Normal 136-145 [facility] Comment on above: Performed By: #### 0 0071, 63737 ####[facility] [place] [address], [facility] Urea nitrogen [Mass/Vol] 8 mg/dL Normal 7-25 [facility] Comment on above: Performed By: #### 0 0071, 32188 ####[facility] [place] [address], [facility] CBC COMPLETE BLOOD COUNTon 0 - Erythrocyte distribution width (RBC) [Ratio] 15.9 % High 11.5-15.0 [facility] Comment on above: Order Comment: No: D o not add to previous draw Performed By: #### 8 1399 #### [facility] [address] [place] [address], [place] Hematocrit (Bld) [Volume fraction] 34.4 % Low 36.0-45.0 [facility] Comment on above: Order Comment: No: D o not add to previous draw Performed By: #### 8 2199 #### [facility] [address] [place] [address], [facility] Hemoglobin (Bld) [Mass/Vol] 11.9 g/dL Low 12.0-15.0 [facility] Comment on above: Order Comment: No: D o not add to previous draw Performed By: #### 8 5499 #### [facility] [address] [place] [id number], [facility] IMM PLATELET FRAC 3.9 % Normal 0.8-6.3 [facility] Comment on above: Order Comment: No: D o not add to previous draw Performed By: #### 8 5499 #### [facility] [address] [place] [address], [facility] MCH (RBC) [Entitic mass] 30.6 pg Normal 27.0-33.0 [facility] Comment on above: Order Comment: No: D o not add to previous draw Performed By: #### 8 5499 #### [facility] [address] MCHC (RBC) [Mass/Vol] 34.6 g/dL Normal 32.0-35.0 [facility] Comment on above: Order Comment: No: D o not add to previous draw Performed By: #### 8 5499 #### [facility] [address] [place] [address], [facility] MCV (RBC) [Entitic vol] 88.4 fL Normal 82.0-98.0 [facility] Comment on above: Order Comment: No: D o not add to previous draw Performed By: #### 8 5499 #### [facility] [address] [place] [address], [facility] Nucleated RBC/100 WBC (Bld) [Ratio] 0 % Normal 0-0 [facility] Comment on above: Order Comment: No: D o not add to previous draw Performed By: #### 8 5499 #### [facility] [address] [place] [id number], [facility] PLAT CNT 140 10*3/uL Low 150-400 [facility] Comment on above: Order Comment: No: D o not add to previous draw Performed By: #### 8 5499 #### [facility] [address] RBC (Bld) [#/Vol] 3.89 10*6/uL Normal 3.80-5.00 [facility] Comment on above: Order Comment: No: D o not add to previous draw Performed By: #### 8 5499 #### [facility] [address] [place] [address], [facility] WBC (Bld) [#/Vol] 19.57 10*3/uL High 4.00-10.60 [facility] Comment on above: Order Comment: No: D o not add to previous draw Performed By: #### 8 5499 #### [facility] [address] Erythrocyte distribution width (RBC) [Ratio] 14.7 % Normal 11.5-15.0 [facility] Comment on above: Performed By: #### 8 5499 #### [facility] [address] Hematocrit (Bld) [Volume fraction] 27.3 % Low 36.0-45.0 [facility] Comment on above: Performed By: #### 8 5499 #### [facility] [address] Hemoglobin (Bld) [Mass/Vol] 9.1 g/dL Low 12.0-15.0 [facility] Comment on above: Performed By: #### 8 5499 #### [facility] [address] [place] [address], [facility] MCH (RBC) [Entitic mass] 30.3 pg Normal 27.0-33.0 [facility] Comment on above: Performed By: #### 8 5499 #### [facility] [address] MCHC (RBC) [Mass/Vol] 33.3 g/dL Normal 32.0-35.0 [facility] Comment on above: Performed By: #### 8 5499 #### [facility] [address] [place] [address], [facility] MCV (RBC) [Entitic vol] 91.0 fL Normal 82.0-98.0 [facility] Comment on above: Performed By: #### 8 5499 #### [facility] [address] Nucleated RBC/100 WBC (Bld) [Ratio] 0 % Normal 0-0 [facility] Comment on above: Performed By: #### 8 5499 #### [facility] [address] PLAT CNT 103 10*3/uL Low 150-400 [facility] Comment on above: Performed By: #### 8 5499 #### [facility] [address] [place] [address], [facility] RBC (Bld) [#/Vol] 3.00 10*6/uL Low 3.80-5.00 [facility] Comment on above: Performed By: #### 8 5499 #### [facility] [address] [place] [address], [facility] WBC (Bld) [#/Vol] 15.30 10*3/uL High 4.00-10.60 [facility] Comment on above: Performed By: #### 8 5499 #### [facility] [address] [place] [address], [facility] FIBRINOGENon 04-02-2021 FIBRINOGEN 138 mg/dL Low 150-425 [facility] Comment on above: Performed By: #### 8 5499 #### [facility] [address] FRESH FROZEN PLASMA 2 UNITSo n 04-02-2021 PRODUCT CODE 1 E2701 Normal [facility] Comment on above: Order Comment: INR: 2.39 ,PTT: 43.1 at the time of order ;Indication: Performed By: #### 8 5499 #### [facility] [address] [place] [address], [facility] PRODUCT CODE 2 E2701 Normal [facility] Comment on above: Order Comment: INR: 2.39 ,PTT: 43.1 at the time of order ;Indication: Performed By: #### 8 5499 #### [facility] [address] PRODUCT STATUS 1 RE Normal [facility] Comment on above: Order Comment: INR: 2.39 ,PTT: 43.1 at the time of order ;Indication: Result Comment: Resu lt changed by IF on 04/04/2021 01:00. The previous value was XX. Performed By: #### 8 5499 #### [facility] [address] [facility] [address] PRODUCT STATUS 2 RE Normal [facility] Comment on above: Order Comment: INR: 2.39 ,PTT: 43.1 at the time of order ;Indication: Result Comment: Resu lt changed by IF on 04/04/2021 01:00. The previous value was XX. Performed By: #### 8 5499 #### [facility] [address] [place] [address], [facility] UNIT ABO 1 A Normal [facility] Comment on above: Order Comment: INR: 2.39 ,PTT: 43.1 at the time of order ;Indication: Performed By: #### 8 5499 #### [facility] [address] [place] [address], [facility] UNIT ABO 2 A Normal [facility] Comment on above: Order Comment: INR: 2.39 ,PTT: 43.1 at the time of order ;Indication: Performed By: #### 8 5499 #### [facility] [address] [place] [address], [facility] UNIT ID 1 [id number] Normal [facility] Comment on above: Order Comment: INR: 2.39 ,PTT: 43.1 at the time of order ;Indication: Performed By: #### 8 5499 #### [facility] [address] [place] [address], [facility] UNIT ID 2 [id number] Normal [facility] Comment on above: Order Comment: INR: 2.39 ,PTT: 43.1 at the time of order ;Indication: Performed By: #### 8 5499 #### [facility] [address] [place] [address], [facility] UNIT RH 1 Positive Normal [facility] Comment on above: Order Comment: INR: 2.39 ,PTT: 43.1 at the time of order ;Indication: Performed By: #### 8 5499 #### [facility] [address] [place] [address], [facility] UNIT RH 2 Positive Normal [facility] Comment on above: Order Comment: INR: 2.39 ,PTT: 43.1 at the time of order ;Indication: Performed By: #### 8 5499 #### [facility] [address] LACTATE BLOODon 04-02-2021 Lactate [Moles/Vol] 1.5 mmol/L Normal 0.5-2.2 [facility] Comment on above: Performed By: #### 3 0965 #### [facility] [address] [place] [address], [facility] MAGNESIUM BLOODon 04-02-2021 Magnesium [Mass/Vol] 1.8 mg/dL Low 1.9-2.7 [facility] Comment on above: Order Comment: Check Chest Tube Position, ON ARRIVAL TO CVU Performed By: #### 0 0071, 51210, 05594 ####[facility] [place] [address], [facility] Magnesium [Mass/Vol] 2.6 mg/dL Normal 1.9-2.7 [facility] Comment on above: Performed By: #### 0 0071, 91337 ####[facility] [place] [address], [facility] PERFUSION BLOOD PANELon 03-20 BASE EXCESS -1.0 mmol/L Normal -2.0-3.0 [facility] Comment on above: Performed By: #### 3 1976 #### [facility] [address] [place] [address], [facility] Glucose [Mass/Vol] 139 mg/dL High 70-105 [facility] Comment on above: Performed By: #### 3 1976 #### [facility] [address] [place] [address], [facility] Hematocrit (Bld) [Volume fraction] 24 % Low 38-51 [facility] Comment on above: Performed By: #### 3 1976 #### [facility] [address] [facility] [place] [address], [facility] Hemoglobin (Bld) [Mass/Vol] 8.2 g/dL Low 12.0-17.0 [facility] Comment on above: Performed By: #### 3 1976 #### [facility] [address] [place] [address], [facility] IONIZED CALCIUM 1.35 mmol/L High 1.12-1.32 [facility] Comment on above: Performed By: #### 3 1976 #### [facility] [address] [place] [address], [facility] Oxygen (Bld) [Partial pressure] 530.0 mm[Hg] High 80.0-105.0 [facility] Comment on above: Performed By: #### 3 1976 #### [facility] [address] [place] [address], [place] PCO2 40.1 mmHg Normal 35.0-45.0 [facility] Comment on above: Performed By: #### 3 1976 #### [facility] [address] [place] [address], [place] pH (Bld) 7.39 [pH] Normal 7.35-7.45 [facility] Comment on above: Performed By: #### 3 1976 #### [facility] [address] [place] [address], [place] Potassium [Moles/Vol] 4.1 mmol/L Normal 3.5-4.9 [facility] Comment on above: Performed By: #### 3 1976 #### [facility] [address] [place] [address], [place] Sodium [Moles/Vol] 140 mmol/L Normal 138-146 [facility] Comment on above: Performed By: #### 3 1976 #### [facility] [address] [place] [address], [place] BASE EXCESS 2.0 mmol/L Normal -2.0-3.0 [facility] Comment on above: Performed By: #### 3 1976 #### [facility] [address] [place] [address], [place] Glucose [Mass/Vol] 146 mg/dL High 70-105 [facility] Comment on above: Performed By: #### 3 1976 #### [facility] [address] [place] [address], [place] Hematocrit (Bld) [Volume fraction] 16 % Low 38-51 [facility] Comment on above: Performed By: #### 3 1976 #### [facility] [address] [place] [address], [place] Hemoglobin (Bld) [Mass/Vol] 5.4 g/dL Critically low 12.0-17.0 [facility] Comment on above: Performed By: #### 3 1976 #### [facility] [address] [place] [address], [facility] IONIZED CALCIUM 1.15 mmol/L Normal 1.12-1.32 [facility] Comment on above: Performed By: #### 3 1976 #### [facility] [address] [place] [address], [facility] Oxygen (Bld) [Partial pressure] 529.0 mm[Hg] High 80.0-105.0 [facility] Comment on above: Performed By: #### 3 1976 #### [facility] [address] [place] [address], [facility] PCO2 37.9 mmHg Normal 35.0-45.0 [facility] Comment on above: Performed By: #### 3 1976 #### [facility] [address] [place] [address], [facility] pH (Bld) 7.44 [pH] Normal 7.35-7.45 [facility] Comment on above: Performed By: #### 3 1976 #### [facility] [address] [place] [address], [facility] Potassium [Moles/Vol] 3.9 mmol/L Normal 3.5-4.9 [facility] Comment on above: Performed By: #### 3 1976 #### [facility] [address] [place] [address], [place] Sodium [Moles/Vol] 141 mmol/L Normal 138-146 [facility] Comment on above: Performed By: #### 3 1976 #### [facility] [address] [place] [address], [facility] BASE EXCESS 2.0 mmol/L Normal -2.0-3.0 [facility] Comment on above: Performed By: #### 8 5499 #### [facility] [address] [place] [address], [place] Glucose [Mass/Vol] 168 mg/dL High 70-105 [facility] Comment on above: Performed By: #### 8 5499 #### [facility] [address] [place] [address], [facility] Hematocrit (Bld) [Volume fraction] 17 % Low 38-51 [facility] Comment on above: Performed By: #### 8 5499 #### [facility] [address] [place] [address], [facility] Hemoglobin (Bld) [Mass/Vol] 5.8 g/dL Critically low 12.0-17.0 [facility] Comment on above: Performed By: #### 8 5499 #### [facility] [address] [place] [address], [facility] IONIZED CALCIUM 1.95 mmol/L Critically high 1.12-1.32 [facility] Comment on above: Performed By: #### 8 5499 #### [facility] [address] [place] [address], [facility] Oxygen (Bld) [Partial pressure] 489.0 mm[Hg] High 80.0-105.0 [facility] Comment on above: Performed By: #### 8 5499 #### [facility] [address] [place] [address], [facility] PCO2 41.5 mmHg Normal 35.0-45.0 [facility] Comment on above: Performed By: #### 8 5499 #### [facility] [address] [place] [address], [place] pH (Bld) 7.42 [pH] Normal 7.35-7.45 [facility] Comment on above: Performed By: #### 8 5499 #### [facility] [address] [place] [address], [facility] Potassium [Moles/Vol] 4.7 mmol/L Normal 3.5-4.9 [facility] Comment on above: Performed By: #### 8 5499 #### [facility] [address] [place] [address], [facility] Sodium [Moles/Vol] 136 mmol/L Low 138-146 [facility] Comment on above: Performed By: #### 8 5499 #### [facility] [address] [place] [address], [facility] BASE EXCESS 0.0 mmol/L Normal -2.0-3.0 [facility] Comment on above: Performed By: #### 8 5499 #### [facility] [address] [place] [address], [facility] Glucose [Mass/Vol] 126 mg/dL High 70-105 [facility] Comment on above: Performed By: #### 8 5499 #### [facility] [address] [place] [address], [facility] Hematocrit (Bld) [Volume fraction] 16 % Low 38-51 [facility] Comment on above: Performed By: #### 8 5499 #### [facility] [address] [place] [address], [facility] Hemoglobin (Bld) [Mass/Vol] 5.4 g/dL Critically low 12.0-17.0 [facility] Comment on above: Performed By: #### 8 5499 #### [facility] [address] [place] [address], [facility] IONIZED CALCIUM 0.94 mmol/L Low 1.12-1.32 [facility] Comment on above: Performed By: #### 8 5499 #### [facility] [address] [place] [address], [facility] Oxygen (Bld) [Partial pressure] 37.0 mm[Hg] Normal [facility] Comment on above: Performed By: #### 8 5499 #### [facility] [address] [place] [address], [facility] PCO2 36.9 mmHg Low 41.0-51.0 [facility] Comment on above: Performed By: #### 8 5499 #### [facility] [address] [place] [address], [facility] pH (Bld) 7.43 [pH] High 7.31-7.41 [facility] Comment on above: Performed By: #### 8 5499 #### [facility] [address] [place] [address], [facility] Potassium [Moles/Vol] 4.4 mmol/L Normal 3.5-4.9 [facility] Comment on above: Performed By: #### 8 5499 #### [facility] [address] [place] [address], [place] Sodium [Moles/Vol] 140 mmol/L Normal 138-146 [facility] Comment on above: Performed By: #### 8 5499 #### [facility] [address] [place] [address], [facility] BASE EXCESS 3.0 mmol/L Normal -2.0-3.0 [facility] Comment on above: Performed By: #### 8 5499 #### [facility] [address] [place] [address], [place] Glucose [Mass/Vol] 117 mg/dL High 70-105 [facility] Comment on above: Performed By: #### 8 5499 #### [facility] [address] [place] [address], [place] Hematocrit (Bld) [Volume fraction] 18 % Low 38-51 [facility] Comment on above: Performed By: #### 8 5499 #### [facility] [address] [place] [address], [place] Hemoglobin (Bld) [Mass/Vol] 6.1 g/dL Low 12.0-17.0 [facility] Comment on above: Performed By: #### 8 5499 #### [facility] [address] [place] [address], [facility] IONIZED CALCIUM 0.92 mmol/L Low 1.12-1.32 [facility] Comment on above: Performed By: #### 8 5499 #### [facility] [address] [place] [address], [facility] Oxygen (Bld) [Partial pressure] 445.0 mm[Hg] High 80.0-105.0 [facility] Comment on above: Performed By: #### 8 5499 #### [facility] [address] [place] [address], [facility] PCO2 36.6 mmHg Normal 35.0-45.0 [facility] Comment on above: Performed By: #### 8 5499 #### [facility] [address] [place] [address], [facility] pH (Bld) 7.48 [pH] High 7.35-7.45 [facility] Comment on above: Performed By: #### 8 5499 #### [facility] [address] [place] [address], [facility] Potassium [Moles/Vol] 4.4 mmol/L Normal 3.5-4.9 [facility] Comment on above: Performed By: #### 8 5499 #### [facility] [address] [place] [address], [facility] Sodium [Moles/Vol] 138 mmol/L Normal 138-146 [facility] Comment on above: Performed By: #### 8 5499 #### [facility] [address] [place] [address], [facility] BASE EXCESS 4.0 mmol/L High -2.0-3.0 [facility] Comment on above: Performed By: #### 3 1977 #### [facility] [address] [place] [address], [facility] Glucose [Mass/Vol] 118 mg/dL High 70-105 [facility] Comment on above: Performed By: #### 3 1976 #### [facility] [address] [place] [address], [facility] Hematocrit (Bld) [Volume fraction] 20 % Low 38-51 [facility] Comment on above: Performed By: #### 3 1976 #### [facility] [address] [place] [address], [facility] Hemoglobin (Bld) [Mass/Vol] 6.8 g/dL Low 12.0-17.0 [facility] Comment on above: Performed By: #### 3 1976 #### [facility] [address] [place] [address], [facility] IONIZED CALCIUM 0.96 mmol/L Low 1.12-1.32 [facility] Comment on above: Performed By: #### 3 1976 #### [facility] [address] [place] [address], [facility] Oxygen (Bld) [Partial pressure] 466.0 mm[Hg] High 80.0-105.0 [facility] Comment on above: Performed By: #### 3 1976 #### [facility] [address] [place] [address], [facility] PCO2 35.3 mmHg Normal 35.0-45.0 [facility] Comment on above: Performed By: #### 3 1976 #### [facility] [address] [place] [address], [facility] pH (Bld) 7.51 [pH] High 7.35-7.45 [facility] Comment on above: Performed By: #### 3 1976 #### [facility] [address] [place] [address], [place] Potassium [Moles/Vol] 4.3 mmol/L Normal 3.5-4.9 [facility] Comment on above: Performed By: #### 3 1976 #### [facility] [address] [place] [address], [facility] Sodium [Moles/Vol] 138 mmol/L Normal 138-146 [facility] Comment on above: Performed By: #### 3 1976 #### [facility] [address] [place] [address], [place] BASE EXCESS 1.0 mmol/L Normal -2.0-3.0 [facility] Comment on above: Performed By: #### 3 1976 #### [facility] [address] [place] [address], [place] Glucose [Mass/Vol] 92 mg/dL Normal 70-105 [facility] Comment on above: Performed By: #### 3 1976 #### [facility] [address] [place], [place] [address], [facility] Hematocrit (Bld) [Volume fraction] 18 % Low 38-51 [facility] Comment on above: Performed By: #### 3 1976 #### [facility] [address] [place] [address], [place] Hemoglobin (Bld) [Mass/Vol] 6.1 g/dL Low 12.0-17.0 [facility] Comment on above: Performed By: #### 3 1976 #### [facility] [address] [place] [address], [facility] IONIZED CALCIUM 0.90 mmol/L Low 1.12-1.32 [facility] Comment on above: Performed By: #### 3 1976 #### [facility] [address] [place] [address], [facility] Oxygen (Bld) [Partial pressure] 45.0 mm[Hg] Normal [facility] Comment on above: Performed By: #### 3 1976 #### [facility] [address] [place] [address], [place] PCO2 32.1 mmHg Low 41.0-51.0 [facility] Comment on above: Performed By: #### 3 1976 #### [facility] [address] [place] [address], [facility] pH (Bld) 7.49 [pH] High 7.31-7.41 [facility] Comment on above: Performed By: #### 3 1976 #### [facility] [address] [place] [id number], [facility] Potassium [Moles/Vol] 3.7 mmol/L Normal 3.5-4.9 [facility] Comment on above: Performed By: #### 3 1976 #### [facility] [address] [place] [address], [facility] Sodium [Moles/Vol] 138 mmol/L Normal 138-146 [facility] Comment on above: Performed By: #### 3 1976 #### [facility] [address] [place] [address], [facility] BASE EXCESS 7.0 mmol/L High -2.0-3.0 [facility] Comment on above: Performed By: #### 3 1976 #### [facility] [address] [place] [address], [facility] Glucose [Mass/Vol] 94 mg/dL Normal 70-105 [facility] Comment on above: Performed By: #### 3 1976 #### [facility] [address] [place] [id number], [facility] Hematocrit (Bld) [Volume fraction] 17 % Low 38-51 [facility] Comment on above: Performed By: #### 3 1976 #### [facility] [address] [place] [id number], [facility] Hemoglobin (Bld) [Mass/Vol] 5.8 g/dL Critically low 12.0-17.0 [facility] Comment on above: Performed By: #### 3 1976 #### [facility] [address] [place] [address], [facility] IONIZED CALCIUM 0.85 mmol/L Low 1.12-1.32 [facility] Comment on above: Performed By: #### 3 1976 #### [facility] [address] [place] [address], [facility] Oxygen (Bld) [Partial pressure] 553.0 mm[Hg] High 80.0-105.0 [facility] Comment on above: Performed By: #### 3 1976 #### [facility] [address] [place] [address], [facility] PCO2 32.8 mmHg Low 35.0-45.0 [facility] Comment on above: Performed By: #### 3 1976 #### [facility] [address] [place] [address], [facility] pH (Bld) 7.57 [pH] High 7.35-7.45 [facility] Comment on above: Performed By: #### 3 1976 #### [facility] [address] [place] [address], [facility] Potassium [Moles/Vol] 3.7 mmol/L Normal 3.5-4.9 [facility] Comment on above: Performed By: #### 3 1976 #### [facility] [address] [place] [address], [place] Sodium [Moles/Vol] 137 mmol/L Low 138-146 [facility] Comment on above: Performed By: #### 3 1976 #### [facility] [address] [address], [facility] BASE EXCESS 0.0 mmol/L Normal -2.0-3.0 [facility] Comment on above: Performed By: #### 3 1976 #### [facility] [address] [place] [address], [place] Glucose [Mass/Vol] 109 mg/dL High 70-105 [facility] Comment on above: Performed By: #### 3 1976 #### [facility] [address] [place] [address], [place] Hematocrit (Bld) [Volume fraction] 27 % Low 38-51 [facility] Comment on above: Performed By: #### 3 1976 #### [facility] [address] [place] [address], [place] Hemoglobin (Bld) [Mass/Vol] 9.2 g/dL Low 12.0-17.0 [facility] Comment on above: Performed By: #### 3 1976 #### [facility] [address] [place] [address], [place] IONIZED CALCIUM 1.17 mmol/L Normal 1.12-1.32 [facility] Comment on above: Performed By: #### 3 1976 #### [facility] [address] [place] [address], [facility] Oxygen (Bld) [Partial pressure] 336.0 mm[Hg] High 80.0-105.0 [facility] Comment on above: Performed By: #### 3 1976 #### [facility] [address] [place] [address], [place] PCO2 41.6 mmHg Normal 35.0-45.0 [facility] Comment on above: Performed By: #### 3 1976 #### [facility] [address] [place] [address], [place] pH (Bld) 7.39 [pH] Normal 7.35-7.45 [facility] Comment on above: Performed By: #### 3 1976 #### [facility] [address] [place] [address], [place] Potassium [Moles/Vol] 3.6 mmol/L Normal 3.5-4.9 [facility] Comment on above: Performed By: #### 3 1976 #### [facility] [address] [place] [address], [place] Sodium [Moles/Vol] 139 mmol/L Normal 138-146 [facility] Comment on above: Performed By: #### 3 1977 #### [facility] [address] [place] [address], [facility] BASE EXCESS 2.0 mmol/L Normal -2.0-3.0 [facility] Comment on above: Performed By: #### 8 5499 #### [facility] [address] [place] [address], [facility] Glucose [Mass/Vol] 93 mg/dL Normal 70-105 [facility] Comment on above: Performed By: #### 8 5499 #### [facility] [address] [place] [address], [facility] Hematocrit (Bld) [Volume fraction] 27 % Low 38-51 [facility] Comment on above: Performed By: #### 8 5499 #### [facility] [address] [place] [address], [facility] Hemoglobin (Bld) [Mass/Vol] 9.2 g/dL Low 12.0-17.0 [facility] Comment on above: Performed By: #### 8 5499 #### [facility] [address] [place] [address], [facility] IONIZED CALCIUM 1.15 mmol/L Normal 1.12-1.32 [facility] Comment on above: Performed By: #### 8 5499 #### [facility] [address] [place] [address], [facility] Oxygen (Bld) [Partial pressure] 545.0 mm[Hg] High 80.0-105.0 [facility] Comment on above: Performed By: #### 8 5499 #### [facility] [address] [place] [address], [facility] PCO2 37.6 mmHg Normal 35.0-45.0 [facility] Comment on above: Performed By: #### 8 5499 #### [facility] [address] [place] [address], [facility] pH (Bld) 7.45 [pH] Normal 7.35-7.45 [facility] Comment on above: Performed By: #### 8 5499 #### [facility] [address] [place] [address], [place] Potassium [Moles/Vol] 3.3 mmol/L Low 3.5-4.9 [facility] Comment on above: Performed By: #### 8 5499 #### [facility] [address] [place] [address], [place] Sodium [Moles/Vol] 140 mmol/L Normal 138-146 [facility] Comment on above: Performed By: #### 8 5499 #### [facility] [address] [place] [address], [facility] PHOSPHORUS BLOODon Phosphate [Mass/Vol] 3.4 mg/dL Normal 2.5-5.0 [facility] Comment on above: Order Comment: Check Chest Tube Position, ON ARRIVAL TO CVU Performed By: #### 0 0071, 00787, 17121 ####[facility] [place] [address], [facility] POC GLUCOSE LABon 04-02-2021 Glucose [Mass/Vol] 154 mg/dL High 70-100 [facility] Comment on above: Performed By: #### 8 5499 #### [facility] [address] [place] [address], [place] Glucose [Mass/Vol] 101 mg/dL High 70-100 [facility] Comment on above: Performed By: #### 3 1595 #### [facility] [address] [place] [address], [facility] POC SARS COV2 ANTIGEN NEGATI VEon 04-02-2021 POC SARS COV2 ANTIGEN NEG Negative Normal NEGATIVE [facility] Comment on above: Result Comment: Nega tive [...] signs and symptoms consistent with COVID-19. The [email or web address] COVID-19 Ag Card is a lateral flow [...] Accreditation. Performed By: #### 3 1977 #### [address] PORTABLE CHEST 1 VIEWon 03-20 PORTABLE CHEST 1 [facility] Department of Radiology [address] [place] [id number] Patient Name: SJ BREWSTER : 1950 Sex: F Age: Race: White Pt. Location: [place] [address] Patient Status: I Ordered Date: 04/02/2021 1:30:00 [...] stomach. Thoracostomy tubes and mediastinal drainage tube. [place]-Ayan catheter with the tip in the pulmonary outflow. Congested lung valerio. IMPRESSION: As above. Electronically signed: Kirk Campa. Transcribed by: [email or web address], User Resident: Electronically Signed by: KIRK CAMPA @ 04/02/2021 02:43 PM Normal [facility] Comment on above: Order Comment: Check Chest Tube Position, ON ARRIVAL TO CVU PROTHROMBIN TIMEon INR Coag (PPP) [Relative time] 1.42 {INR} High 0.91-1.16 [facility] Comment on above: Order Comment: No: D o not add to previous draw Result Comment: ACCC P RECOMMENDED INR FOR WARFARIN THERAPY --------- ------- CONDITION INR PROPHYLAXIS OF VENOUS THROMBOSIS 2-3 (HIGH-RISK SURGERY) TREATMENT OF VENOUS THROMBOSIS 2-3 TREATMENT OF PULMONARY EMBOLISM 2-3 PREVENTION OF SYSTEMIC EMBOLISM: 2-3 ACUTE MYOCARDIAL INFARCTION TISSUE HEART VALVES VALVULAR HEART DISEASE ATRIAL FIBRILLATION RECURRENT SYSTEMIC EMBOLISM MECHANICAL HEART VALVE 2.5-3.5 FROM: ORAL ANTICOAGULANTS. MECHANISM OF ACTION, CLINICAL EFFECTIVENESS, AND OPTIMAL THERAPEUTIC RANGE. CHEST 1995;108:231S-246S. Performed By: #### 8 5499 #### [facility] [address] [place] [address], [facility] PT Coag (PPP) [Time] 17.4 s High 12.3-14.8 [facility] Comment on above: Order Comment: No: D o not add to previous draw Result Comment: ALL RESULTS MUST BE INTERPRETED WITH RESPECT TO BLOOD DRAWING ARTIFACT OR DILUTION ERROR OF ANTICOAGULANT AT THE TIME OF SAMPLING. Performed By: #### 8 5499 #### [facility] [address] INR Coag (PPP) [Relative time] 1.92 {INR} High 0.91-1.16 [facility] Comment on above: Order Comment: No: D o not add to previous draw Result Comment: ACCC P RECOMMENDED INR FOR WARFARIN THERAPY --------- ------- CONDITION INR PROPHYLAXIS OF VENOUS THROMBOSIS 2-3 (HIGH-RISK SURGERY) TREATMENT OF VENOUS THROMBOSIS 2-3 TREATMENT OF PULMONARY EMBOLISM 2-3 PREVENTION OF SYSTEMIC EMBOLISM: 2-3 ACUTE MYOCARDIAL INFARCTION TISSUE HEART VALVES VALVULAR HEART DISEASE ATRIAL FIBRILLATION RECURRENT SYSTEMIC EMBOLISM MECHANICAL HEART VALVE 2.5-3.5 FROM: ORAL ANTICOAGULANTS. MECHANISM OF ACTION, CLINICAL EFFECTIVENESS, AND OPTIMAL THERAPEUTIC RANGE. CHEST 1995;108:231S-246S. Performed By: #### 8 5499 #### [facility] [address] [place] [address], [place] PT Coag (PPP) [Time] 22.0 s High 12.3-14.8 [facility] Comment on above: Order Comment: No: D o not add to previous draw Result Comment: ALL RESULTS MUST BE INTERPRETED WITH RESPECT TO BLOOD DRAWING ARTIFACT OR DILUTION ERROR OF ANTICOAGULANT AT THE TIME OF SAMPLING. Performed By: #### 8 5499 #### [facility] [address] [place] [address], [place] INR Coag (PPP) [Relative time] 2.39 {INR} High 0.91-1.16 [facility] Comment on above: Result Comment: ACCC P RECOMMENDED INR FOR WARFARIN THERAPY --------- ------- CONDITION INR PROPHYLAXIS OF VENOUS THROMBOSIS 2-3 (HIGH-RISK SURGERY) TREATMENT OF VENOUS THROMBOSIS 2-3 TREATMENT OF PULMONARY EMBOLISM 2-3 PREVENTION OF SYSTEMIC EMBOLISM: 2-3 ACUTE MYOCARDIAL INFARCTION TISSUE HEART VALVES VALVULAR HEART DISEASE ATRIAL FIBRILLATION RECURRENT SYSTEMIC EMBOLISM MECHANICAL HEART VALVE 2.5-3.5 FROM: ORAL ANTICOAGULANTS. MECHANISM OF ACTION, CLINICAL EFFECTIVENESS, AND OPTIMAL THERAPEUTIC RANGE. CHEST 1995;108:231S-246S. Performed By: #### 8 5499 #### [facility] [address] [place] [address], [place] PT Coag (PPP) [Time] 26.2 s High 12.3-14.8 [facility] Comment on above: Result Comment: ALL RESULTS MUST BE INTERPRETED WITH RESPECT TO BLOOD DRAWING ARTIFACT OR DILUTION ERROR OF ANTICOAGULANT AT THE TIME OF SAMPLING. Performed By: #### 8 5499 #### [facility] [address] [place] [address], [place] RBC'S 2 UNITSon 04-02-2021 CROSSMATCH INTERP 1 COMP Normal [facility] Comment on above: Performed By: #### 3 0739 #### [facility] [address] [place] [address], [place] CROSSMATCH INTERP 2 COMP Normal [facility] Comment on above: Performed By: #### 3 0739 #### [facility] [address] [place] [address], [place] PRODUCT CODE 1 E0336 Normal [facility] Comment on above: Performed By: #### 3 0739 #### [facility] [address] [place] [address], [place] PRODUCT CODE 2 E0336 Normal [facility] Comment on above: Performed By: #### 3 0739 #### [facility] [address] [place] [address], [place] PRODUCT STATUS 1 RE Normal [facility] Comment on above: Result Comment: Resu lt changed by IF on 04/05/2021 07:21. The previous value was XM. Performed By: #### 3 0739 #### [facility] [address] [place] [address], [place] PRODUCT STATUS 2 RE Normal [facility] Comment on above: Result Comment: Resu lt changed by IF on 04/05/2021 07:21. The previous value was XM. Performed By: #### 3 0739 #### [facility] [address] [place] [address], [place] UNIT ABO 1 A Normal [facility] Comment on above: Performed By: #### 3 0739 #### [facility] [address] [place] [address], [place] UNIT ABO 2 A Normal [facility] Comment on above: Performed By: #### 3 0739 #### [facility] [address] [place] [address], [place] UNIT ID 1 [id number] Normal [facility] Comment on above: Performed By: #### 3 0739 #### [facility] [address] [place] [address], [place] UNIT ID 2 [id number] Normal [facility] Comment on above: Performed By: #### 3 0739 #### [facility] [address] [place] [address], [place] UNIT RH 1 Negative Normal [facility] Comment on above: Performed By: #### 3 0739 #### [facility] [address] [place] [address], [place] UNIT RH 2 Negative Normal [facility] Comment on above: Performed By: #### 3 0739 #### [facility] [address] [place] [address], [place] CROSSMATCH INTERP 1 COMP Normal [facility] Comment on above: Performed By: #### 3 0965 #### [facility] [address] [place] [address], [place] CROSSMATCH INTERP 2 COMP Normal [facility] Comment on above: Performed By: #### 3 0965 #### [facility] [address] [place] [address], [place] PRODUCT CODE 1 E0336 Normal [facility] Comment on above: Performed By: #### 3 0965 #### [facility] [address] [place] [address], [place] PRODUCT CODE 2 E0336 Normal [facility] Comment on above: Performed By: #### 3 0965 #### [facility] [address] [place] [address], [place] PRODUCT STATUS 1 PT Normal [facility] Comment on above: Result Comment: Resu lt changed by IF on 04/02/2021 13:04. The previous value was XM. Result changed by IF on 04/03/2021 00:30. The previous value was IS. Performed By: #### 3 0965 #### [facility] [address] [place] [address], [place] PRODUCT STATUS 2 PT Normal [facility] Comment on above: Result Comment: Resu lt changed by IF on 04/02/2021 13:04. The previous value was XM. Result changed by IF on 04/03/2021 00:30. The previous value was IS. Performed By: #### 3 0965 #### [facility] [address] [place] [address], [place] UNIT ABO 1 A Normal [facility] Comment on above: Performed By: #### 3 0965 #### [facility] [address] [place] [address], [place] UNIT ABO 2 A Normal [facility] Comment on above: Performed By: #### 3 0965 #### [facility] [address] [place] [address], [facility] UNIT ID 1 [id number] Normal [facility] Comment on above: Performed By: #### 3 0965 #### [facility] [address] [place] [address], [place] UNIT ID 2 [id number] Normal [facility] Comment on above: Performed By: #### 3 0965 #### [facility] [address] [place] [address], [place] UNIT RH 1 Negative Normal [facility] Comment on above: Performed By: #### 3 0965 #### [facility] [address] [place] [address], [place] UNIT RH 2 Negative Normal [facility] Comment on above: Performed By: #### 3 0965 #### [facility] [address] [place] [address], [place] RBC'S 2 UNITSon 04-01-2021 CROSSMATCH INTERP 1 COMP Normal [facility] Comment on above: Performed By: #### 3 0965 #### [facility] [address] [place] [address], [place] CROSSMATCH INTERP 2 COMP Normal [facility] Comment on above: Performed By: #### 3 0965 #### [facility] [address] [place] [address], [place] PRODUCT CODE 1 E0336 Normal [facility] Comment on above: Performed By: #### 3 0965 #### [facility] [address] [place] [address], [place] PRODUCT CODE 2 E0336 Normal [facility] Comment on above: Performed By: #### 3 0965 #### [facility] [address] [place] [address], [place] PRODUCT STATUS 1 PT Normal [facility] Comment on above: Result Comment: Resu lt changed by IF on 04/02/2021 09:57. The previous value was XM. Result changed by IF on 04/03/2021 00:30. The previous value was IS. Performed By: #### 3 0965 #### [facility] [address] [place] [address], [place] PRODUCT STATUS 2 PT Normal [facility] Comment on above: Result Comment: Resu lt changed by IF on 04/02/2021 09:57. The previous value was XM. Result changed by IF on 04/03/2021 00:30. The previous value was IS. Performed By: #### 3 0965 #### [facility] [address] [place] [address], [place] UNIT ABO 1 A Normal [facility] Comment on above: Performed By: #### 3 0965 #### [facility] [address] [place] [address], [facility] UNIT ABO 2 A Normal [facility] Comment on above: Performed By: #### 3 0965 #### [facility] [address] [place] [address], [facility] UNIT ID 1 [id number] Normal [facility] Comment on above: Performed By: #### 3 0965 #### [facility] [address] [place] [address], [facility] UNIT ID 2 [id number] Normal [facility] Comment on above: Performed By: #### 3 0965 #### [facility] [address] [place], [place] [address] [place] [address] UNIT RH 1 Negative Normal [facility] Comment on above: Performed By: #### 3 0965 #### [facility] [address] [place] [address], [facility] UNIT RH 2 Negative Normal [facility] Comment on above: Performed By: #### 3 0965 #### [facility] [address] *MRSA/MSSA DNA NASALon 03-25 *MRSA/MSSA DNA NASAL Clinical Report: (D ) Specimen: NASAL SWAB Collected: 03/25/2021 10:21 Status: Final Last Updated: 03/27/2021 08:02 MSSA DNA (Final) Negative MRSA DNA (Final) Methicillin Resistant Staphylococcus aureus DNA Detected Normal [facility] Comment on above: Performed By: #### 3 1595 #### [facility] [address] [place] [address], [facility] ANTI C3 DATon 03-25-2021 ANTI C3 ZEENAT Negative Normal [facility] Comment on above: Performed By: #### 3 0965 #### [facility] [address] ANTI IGG DATon 03-25-2021 ANTI IGG ZEENAT Negative Normal [facility] Comment on above: Performed By: #### 3 0965 #### [facility] [address] ANTIBODY IDENTIFICATIONon ANTIBODY ID NCSA Normal [facility] Comment on above: Performed By: #### 3 0739 #### [facility] [address] APTTon 03-25-2021 aPTT Coag (Bld) [Time] 30.2 s Normal 25.0-35.0 [facility] Comment on above: Result Comment: ALL [...] PURPOSE. Performed By: #### 8 5499 #### [facility] [address] CBC W/DIFFon 03-25-2021 ABS IMM GRANS 0.0 10*3/uL Normal 0.0-0.2 [facility] Comment on above: Performed By: #### 5 0103 #### [facility] [address] ABS NEUTROPHILS 4.7 10*3/uL Normal 1.6-7.6 [facility] Comment on above: Performed By: #### 5 0103 #### [facility] [address] Basophils (Bld) [#/Vol] 0.1 10*3/uL Normal 0.0-0.2 [facility] Comment on above: Performed By: #### 5 0103 #### [facility] [address] Basophils/100 WBC (Bld) 0.7 % Normal 0.0-1.0 [facility] Comment on above: Performed By: #### 5 0103 #### [facility] [address] [facility] Eosinophils (Bld) [#/Vol] 0.1 10*3/uL Normal 0.0-0.5 [facility] Comment on above: Performed By: #### 5 0103 #### [facility] [address] [place] [address], [facility] Eosinophils/100 WBC (Bld) 1.6 % Normal 0.0-6.0 [facility] Comment on above: Performed By: #### 5 0103 #### [facility] [address] Erythrocyte distribution width (RBC) [Ratio] 12.8 % Normal 11.5-15.0 [facility] Comment on above: Performed By: #### 5 0103 #### [facility] [address] Hematocrit (Bld) [Volume fraction] 35.0 % Low 36.0-45.0 [facility] Comment on above: Performed By: #### 5 0103 #### [facility] [address] Hemoglobin (Bld) [Mass/Vol] 11.6 g/dL Low 12.0-15.0 [facility] Comment on above: Performed By: #### 5 0103 #### [facility] [address] [place] [address], [facility] IMMATURE GRANS 0.3 % Normal 0.0-1.0 [facility] Comment on above: Performed By: #### 5 0103 #### [facility] [address] [place] [address], [facility] Lymphocytes (Bld) [#/Vol] 1.3 10*3/uL Normal 1.2-4.0 [facility] Comment on above: Performed By: #### 5 0103 #### [facility] [address] [place] [address], [facility] Lymphocytes/100 WBC (Bld) 19.2 % Low 20.0-45.0 [facility] Comment on above: Performed By: #### 3 #### [facility] [address] [facility] [address] MCH (RBC) [Entitic mass] 31.4 pg Normal 27.0-33.0 [facility] Comment on above: Performed By: #### 102 #### [facility] [address] [facility] [address] MCHC (RBC) [Mass/Vol] 33.1 g/dL Normal 32.0-35.0 [facility] Comment on above: Performed By: #### 102 #### [facility] [address] MCV (RBC) [Entitic vol] 94.9 fL Normal 82.0-98.0 [facility] Comment on above: Performed By: #### 3 #### [facility] [address] [place] [address], [facility] Monocytes (Bld) [#/Vol] 0.6 10*3/uL Normal 0.1-1.0 [facility] Comment on above: Performed By: #### 3 #### [facility] [address] [place] [address], [facility] MONOS 8.4 % Normal 5.0-12.0 [facility] Comment on above: Performed By: #### 3 #### [facility] [address] [facility] [place] [place] [address] Neutrophils/100 WBC (Bld) 69.8 % Normal 40.0-72.0 [facility] Comment on above: Performed By: #### 5 0103 #### [facility] [address] Nucleated RBC/100 WBC (Bld) [Ratio] 0 % Normal 0-0 [facility] Comment on above: Performed By: #### 5 0103 #### [facility] [address] [place] [address], [facility] PLAT CNT 325 10*3/uL Normal 150-400 [facility] Comment on above: Performed By: #### 5 0103 #### [address] RBC (Bld) [#/Vol] 3.69 10*6/uL Low 3.80-5.00 [facility] Comment on above: Performed By: #### 5 0103 #### [facility] [address] [place] [address], [facility] WBC (Bld) [#/Vol] 6.67 10*3/uL Normal 4.00-10.60 [facility] Comment on above: Performed By: #### 5 0103 #### [address] CHEST AND LATERALon 03-25-20 CHEST AND LATERAL [facility] Department of Radiology [address] [place] [id number] Patient Name: SJ BREWSTER : 1950 Sex: F Age: Race: White Pt. 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 Electronically signed: Jero Germain. Transcribed by: [email or web address], User Resident: MU MOSES Electronically Signed by: JERO GERMAIN @ 03/25/2021 11:41 AM I personally read this/these film(s) with this resident Normal [facility] Comment on above: Order Comment: evalu ate COMP METABOLIC PANELon 03-25 Albumin [Mass/Vol] 4.4 g/dL Normal 3.5-5.7 [facility] Comment on above: Performed By: #### 0 0121 ####[facility] [place] [address], [place] ALKALINE PHOSPH 52 IU/L Normal 34-104 [facility] Comment on above: Performed By: #### 0 0121 ####[facility] [place] [address], [place] ALT [Catalytic activity/Vol] 12 U/L Normal 7-52 [facility] Comment on above: Performed By: #### 0 0121 ####[facility] [place] [address], [place] AST [Catalytic activity/Vol] 13 U/L Normal 13-39 [facility] Comment on above: Performed By: #### 0 0121 ####[facility] [place] [address], [place] Bilirubin [Mass/Vol] 0.3 mg/dL Normal 0.3-1.0 [facility] Comment on above: Performed By: #### 0 0121 ####[facility] [place] [address], [place] Calcium [Mass/Vol] 9.7 mg/dL Normal 8.6-10.3 [facility] Comment on above: Performed By: #### 0 0121 ####[facility] [place] [address], [place] Chloride [Moles/Vol] 104 mmol/L Normal 98-107 [facility] Comment on above: Performed By: #### 0 0121 ####[facility] [place] [address], [place] CO2 [Moles/Vol] 30 mmol/L Normal 21-31 [facility] Comment on above: Performed By: #### 0 0121 ####[facility] [place] [address], [place] Creatinine [Mass/Vol] 0.76 mg/dL Normal 0.60-1.20 [facility] Comment on above: Performed By: #### 0 0121 ####[facility] [place] [address], [facility] GFR/1.73 sq M.predicted among blacks MDRD (S/P/Bld) [Vol rate/Area] mL/min/{1.73_m2} Normal >60 [facility] Comment on above: Performed By: #### 0 0121 ####[facility] [place] [address], [facility] GFR/1.73 sq M.predicted among non-blacks MDRD (S/P/Bld) [Vol rate/Area] mL/min/{1.73_m2} Normal >60 [facility] Comment on above: Performed By: #### 0 0121 ####[facility] [facility] [place] [address], [facility] Glucose [Mass/Vol] 112 mg/dL High 70-100 [facility] Comment on above: Performed By: #### 0 0121 ####[place] [address] [facility] [place] [address], [facility] Potassium [Moles/Vol] 5.1 mmol/L Normal 3.5-5.1 [facility] Comment on above: Performed By: #### 0 0121 ####[facility] [facility] [place] [address], [facility] Protein [Mass/Vol] 7.5 g/dL Normal 6.0-8.3 [facility] Comment on above: Performed By: #### 0 0121 ####[facility] [place] [address], [facility] Sodium [Moles/Vol] 140 mmol/L Normal 136-145 [facility] Comment on above: Performed By: #### 0 0121 ####[facility] Urea nitrogen [Mass/Vol] 10 mg/dL Normal 7-25 [facility] Comment on above: Performed By: #### 0 0121 ####[facility] HEMOGLOBIN A1Con 03-25-2021 Glucose [Moles/Vol] 117 mmol/L Normal [facility] Comment on above: Performed By: #### 3 1791 ####[facility] HbA1c (Bld) [Mass fraction] 5.7 % Normal 4.0-6.0 [facility] Comment on above: Performed By: #### 3 1791 ####[facility] PROTHROMBIN TIMEon INR Coag (PPP) [Relative time] 1.05 {INR} Normal 0.91-1.16 [facility] Comment on above: Result Comment: ACCC P RECOMMENDED INR FOR WARFARIN THERAPY --------- ------- CONDITION INR PROPHYLAXIS OF VENOUS THROMBOSIS 2-3 (HIGH-RISK SURGERY) TREATMENT OF VENOUS THROMBOSIS 2-3 TREATMENT OF PULMONARY EMBOLISM 2-3 PREVENTION OF SYSTEMIC EMBOLISM: 2-3 ACUTE MYOCARDIAL INFARCTION TISSUE HEART VALVES VALVULAR HEART DISEASE ATRIAL FIBRILLATION RECURRENT SYSTEMIC EMBOLISM MECHANICAL HEART VALVE 2.5-3.5 FROM: ORAL ANTICOAGULANTS. MECHANISM OF ACTION, CLINICAL EFFECTIVENESS, AND OPTIMAL THERAPEUTIC RANGE. CHEST 1995;108:231S-246S. Performed By: #### 8 5499 #### [facility] [address] [place] [address], [facility] PT Coag (PPP) [Time] 13.7 s Normal 12.3-14.8 [facility] Comment on above: Result Comment: ALL RESULTS MUST BE INTERPRETED WITH RESPECT TO BLOOD DRAWING ARTIFACT OR DILUTION ERROR OF ANTICOAGULANT AT THE TIME OF SAMPLING. Performed By: #### 8 5499 #### [facility] [address] [place] [address], [facility] TYPE AND CROSSMATCHon 2020 ABO INTERPRETATION A Normal [facility] Comment on above: Performed By: #### 3 0965 #### [facility] [address] [facility] [place] [address], [facility] RH INTERPRETATION Negative Normal [facility] Comment on above: Performed By: #### 3 0965 #### [facility] [address] [place] [address], [facility] URINALYSIS REFLEXon 03-25-20 21 Appearance (U) SL CLOUDY Abnormal CLEAR [facility] Comment on above: Performed By: #### 3 0965 #### [facility] [address] [facility] [place] [address], [facility] Bilirubin Ql (U) Negative Normal NEGATIVE [facility] Comment on above: Performed By: #### 3 0965 #### [facility] [address] [place] [address], [facility] Color (U) YELLOW Normal YELLOW [facility] Comment on above: Performed By: #### 3 0965 #### [facility] [address] [place] [address], [facility] Glucose Ql (U) Negative Normal NEGATIVE [facility] Comment on above: Performed By: #### 3 0965 #### [facility] [address] [place] [address], [place] Hemoglobin Ql (U) Negative Normal NEGATIVE [facility] Comment on above: Performed By: #### 3 0965 #### [facility] [address] [place] [address], [place] KETONE Negative Normal NEGATIVE [facility] Comment on above: Performed By: #### 3 0965 #### [facility] [address] [place] [address], [place] LEUK KEEGAN Negative Normal NEGATIVE [facility] Comment on above: Performed By: #### 3 0965 #### [facility] [address] [place] [address], [place] MICRO NOT DONE Normal [facility] Comment on above: Result Comment: Micr oscopics not performed on urines with negative chemical reactions unless requested in original order Performed By: #### 3 0965 #### [facility] [address] [place] [address], [place] Nitrite Ql (U) Negative Normal NEGATIVE [facility] Comment on above: Performed By: #### 3 0965 #### [facility] [address] [place] [address], [place] pH (U) 7.0 [pH] Normal 5.0-8.0 [facility] Comment on above: Performed By: #### 3 0965 #### [facility] [address] [place] [address], [place] Protein Ql (U) Negative Normal NEGATIVE [facility] Comment on above: Performed By: #### 3 0965 #### [facility] [address] [place] [address], [place] SPEC GRAV 1.014 Low 1.015-1.02 0 [facility] Comment on above: Performed By: #### 3 0965 #### [facility] [address] [place] [address], [facility] Cardiovascular Lab Reporton 03-18-2021 Cardiovascular Lab Report [facility] #: [id number] Department of Physician: Taco Regalado M.D. Division of Service Date: 03/17/2021 Cardiology Birthdate: 1950 Adult Cardiovascular Room #: [place] [address] [place], [place] [address] Cardiovascular Laboratory Report FINAL IMPRESSIONS: 1. 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 2. Normal global left ventricular systolic function. 3. Normal right-sided heart pressures and wedge pressure. 4. Normal cardiac output/cardiac index. Pressured and artery aneurysms. 5. Ypvfyiir-az-rrwtox systemic hypertension. RECOMMENDATIONS: 1. Consult Cardiothoracic Surgery for coronary artery bypass graft surgery. 2. Aggressive cardiovascular risk factor modification. 3. Optimization of medical management; aspirin, high-intensity statin therapy, which is not tolerated - will add Zetia and consider addition of a PCSK9 inhibitor, beta mariah, and angiotensin-converting enzyme inhibitor. 4. Follow up with Dr. [...] femoral vein and artery was obtained. A 6-Micronesian 11 cm sheath was placed in each. [...] was elected to conclude the procedure. A 6-Micronesian MynxGrip closure device was deployed per protocol achieving optimal hemostasis. Overall, the patient tolerated the procedure well. There were no overt complications. She was to be transferred to the [facility] area in stable condition. FINDINGS: Hemodynamics: RA [...] moderate-sized branching second diagonal shows a 70% jssnkxls-kh-rdx vessel stenosis. Left circumflex coronary artery. This [...] Aj M.D. Date Trans: 03/18/2021 02:36 A/refugio [id number] cc: Dontae Uribe D.O. [address] [place] [phone] Agustin Valencia D.O. [address] [place] [address] Normal [facility] Consent for COVID Vaccineon 12-29-2020 SARS-CoV-2 (COVID-19) RNA EDA+probe Ql (Unsp spec) [id number]#1.00CD:127 Normal [facility] Consent for COVID Vaccineon 12-06-2020 SARS-CoV-2 (COVID-19) RNA EDA+probe Ql (Unsp spec) [id number]#1.00CD:127 [facility] Consent for Treatmenton 11-18 Consent for Treatment [id number]#1.00CD:127 [facility] Coding Summary.on 12-04-2020 Coding Summary. CODING DATE: 021 [facility] STATUS: PAYOR: Medicare APC DESCRIPTION 1492 New [...] Sarah Bernal Date Saved: 12/04/2020 03:11 pm [facility] Vital Signs Date Time Vital Sign Value Performing Clinician Facility 11-29-2024 13:30-0400 Body height 165.1 cm [employer] DO Work Phone: [facility] 11-29-2024 13:30-0400 Body mass index (BMI) [Ratio] 19.2 kg/m2 Dontae [employer] DO Work Phone: [facility] 11-29-2024 13:30-0400 Body weight 52.33 kg [employer] DO Work Phone: [facility] 11-29-2024 13:30-0400 Diastolic blood pressure 69 mm[Hg] Dontae Ball DO Work Phone: [facility] 11-29-2024 13:30-0400 Heart rate 80 /min Dontae Ball DO Work Phone: [facility] 11-29-2024 13:30-0400 Respiratory rate 12 /min Dontae Ball DO Work Phone: [facility] 11-29-2024 13:30-0400 Systolic blood pressure 157 mm[Hg] Dontae Ball DO Work Phone: [facility] 10-11-2024 08:47-0500 Body height 165.1 cm Dontae Ball DO Work Phone: [facility] 10-11-2024 08:47-0500 Body mass index (BMI) [Ratio] 18.9 kg/m2 Dontae Ball DO Work Phone: [facility] 10-11-2024 08:47-0500 Body weight 51.7 kg Dontae Ball DO Work Phone: [facility] 08-30-2024 08:56-0500 Body height 165.1 cm Dontae Ball DO Work Phone: [facility] 08-18-2024 08:58-0500 Body height 165.1 cm Dontae Ball DO Work Phone: [facility] 08-18-2024 08:58-0500 Body mass index (BMI) [Ratio] 18.8 kg/m2 Dontae Ball DO Work Phone: [facility] 08-18-2024 08:58-0500 Body weight 51.25 kg Dontae Ball DO Work Phone: [facility] 08-18-2024 08:58-0500 Diastolic blood pressure 89 mm[Hg] Dontae Ball DO Work Phone: [facility] 08-18-2024 08:58-0500 Heart rate 84 /min Dontae Ball DO Work Phone: [facility] 08-18-2024 08:58-0500 SaO2% (BldA) [Mass fraction] 97 % Dontae Ball DO Work Phone: [facility] 08-18-2024 08:58-0500 Systolic blood pressure 139 mm[Hg] Dontae Ball DO Work Phone: [facility] 07-13-2024 08:00-0400 Body temperature 98.2 [degF] DO Dontae Ball Work Phone: [facility] 07-13-2024 08:00-0400 Diastolic blood pressure 70 mm[Hg] DO Dontae Ball Work Phone: [facility] 07-13-2024 08:00-0400 Heart rate 95 /min DO Dontae Ball Work Phone: [facility] 07-13-2024 08:00-0400 Respiratory rate 16 /min DO Dontae Ball Work Phone: [facility] 07-13-2024 08:00-0400 SaO2% (BldA) [Mass fraction] 98 % DO Dontae Ball Work Phone: [facility] 07-13-2024 08:00-0400 Systolic blood pressure 153 mm[Hg] DO Dontae Ball Work Phone: [facility] 07-13-2024 06:00-0400 Body weight 51.2 kg DO Dontae Ball Work Phone: [facility] 07-12-2024 15:56-0400 Body height 165.1 cm DO Dontae Ball Work Phone: [facility] 07-11-2024 16:21-0400 Inhaled oxygen flow rate 2 L/min DO Dontae Ball Work Phone: [facility] 06-26-2024 10:55-0400 Body height 165.1 cm DO Dontae Ball Work Phone: [facility] 06-26-2024 10:55-0400 Body mass index (BMI) [Ratio] 18.8 kg/m2 DO Dontae Ball Work Phone: [facility] 06-26-2024 10:55-0400 Body weight 51.36 kg DO Dontae Ball Work Phone: [facility] 06-21-2024 14:02-0400 Diastolic blood pressure 66 mm[Hg] DO Dontae Ball Work Phone: [facility] 06-21-2024 14:02-0400 Heart rate 75 /min DO Dontae Ball Work Phone: [facility] 06-21-2024 14:02-0400 Respiratory rate 16 /min DO Dontae Ball Work Phone: [facility] 06-21-2024 14:02-0400 SaO2% (BldA) [Mass fraction] 99 % DO Dontae Ball Work Phone: [facility] 06-21-2024 14:02-0400 Systolic blood pressure 134 mm[Hg] DO Dontae Ball Work Phone: [facility] 06-21-2024 12:36-0400 Body height 165.1 cm DO Dontae Ball Work Phone: [facility] 06-21-2024 12:36-0400 Body weight 52.16 kg DO Dontae Ball Work Phone: [facility] 2024 14:00-0400 Body mass index (BMI) [Ratio] 18.9 kg/m2 DO Dontae Ball Work Phone: [facility] 2024 14:00-0400 Diastolic blood pressure 70 mm[Hg] DO Dontae Ball Work Phone: [facility] 2024 14:00-0400 Heart rate 76 /min DO Dontae Ball Work Phone: [facility] 2024 14:00-0400 Systolic blood pressure 146 mm[Hg] DO Dontae Ball Work Phone: [facility] 06-15-2024 06:52-0400 Body height 165.1 cm DO Dontae Ball Work Phone: [facility] 06-15-2024 06:52-0400 Body weight 51.7 kg DO Dontae Ball Work Phone: [facility] 06-12-2024 10:20-0400 Body height 165.1 cm [facility] 06-12-2024 10:20-0400 Body mass index (BMI) [Ratio] 18.9 kg/m2 [facility] 06-12-2024 10:20-0400 Body weight 51.7 kg [facility] 06-09-2024 08:57-0400 Body height 165.1 cm [facility] 06-09-2024 08:57-0400 Body mass index (BMI) [Ratio] 19.1 kg/m2 [facility] 06-09-2024 08:57-0400 Body weight 52.16 kg [facility] 05-30-2024 16:08-0400 Body height 168.91 cm [facility] 05-30-2024 16:08-0400 Body mass index (BMI) [Ratio] 18.1 kg/m2 [facility] 05-30-2024 16:08-0400 Body weight 51.82 kg [facility] 05-30-2024 16:08-0400 Diastolic blood pressure 83 mm[Hg] [facility] 05-30-2024 16:08-0400 Heart rate 85 /min [facility] 05-30-2024 16:08-0400 Respiratory rate 12 /min [facility] 05-30-2024 16:08-0400 Systolic blood pressure 175 mm[Hg] [facility] 05-08-2024 15:26-0400 Body height 168.91 cm [facility] 05-08-2024 15:26-0400 Body mass index (BMI) [Ratio] 18 kg/m2 [facility] 05-08-2024 15:26-0400 Body weight 51.48 kg [facility] 05-08-2024 15:26-0400 Diastolic blood pressure 84 mm[Hg] [facility] 05-08-2024 15:26-0400 Heart rate 70 /min [facility] 05-08-2024 15:26-0400 Respiratory rate 12 /min [facility] 05-08-2024 15:26-0400 Systolic blood pressure 180 mm[Hg] [facility] 04-14-2024 08:48-0400 Body height 168.91 cm [facility] 04-14-2024 08:48-0400 Body mass index (BMI) [Ratio] 18 kg/m2 [facility] 04-14-2024 08:48-0400 Body weight 51.42 kg [facility] 04-14-2024 08:48-0400 Diastolic blood pressure 89 mm[Hg] [facility] 04-14-2024 08:48-0400 Heart rate 71 /min [facility] 04-14-2024 08:48-0400 Respiratory rate 12 /min [facility] 04-14-2024 08:48-0400 Systolic blood pressure 139 mm[Hg] [facility] 01-25-2024 10:30-0400 Body height 168.91 cm [facility] 01-25-2024 10:30-0400 Body mass index (BMI) [Ratio] 18.5 kg/m2 [facility] 01-25-2024 10:30-0400 Body weight 52.84 kg [facility] 01-25-2024 10:30-0400 Diastolic blood pressure 82 mm[Hg] [facility] 01-25-2024 10:30-0400 Heart rate 68 /min [facility] 01-25-2024 10:30-0400 Respiratory rate 12 /min [facility] 01-25-2024 10:30-0400 Systolic blood pressure 130 mm[Hg] [facility] 12-24-2023 12:32-0400 Body height 168.91 cm [facility] 12-24-2023 12:32-0400 Body mass index (BMI) [Ratio] 18.4 kg/m2 [facility] 12-24-2023 12:32-0400 Body weight 52.61 kg [facility] 12-24-2023 12:32-0400 Diastolic blood pressure 80 mm[Hg] [facility] 12-24-2023 12:32-0400 Heart rate 76 /min [facility] 12-24-2023 12:32-0400 Respiratory rate 12 /min [facility] 12-24-2023 12:32-0400 Systolic blood pressure 182 mm[Hg] [facility] 12-15-2023 13:34-0400 Body height 168.91 cm [facility] 12-15-2023 13:34-0400 Body mass index (BMI) [Ratio] 18.4 kg/m2 [facility] 12-15-2023 13:34-0400 Body weight 52.61 kg [facility] 12-15-2023 13:34-0400 Diastolic blood pressure 80 mm[Hg] [facility] 12-15-2023 13:34-0400 Heart rate 77 /min [facility] 12-15-2023 13:34-0400 Respiratory rate 12 /min [facility] 12-15-2023 13:34-0400 Systolic blood pressure 135 mm[Hg] [facility] 08-16-2023 08:30-0500 Body height 168.91 cm Dontae Ball Other [facility] [employer] Other 08-16-2023 08:30-0500 Body mass index (BMI) [Ratio] 18.31 kg/m2 Dontae Ball Other [facility] [employer] Other 08-16-2023 08:30-0500 Body weight 52.25 kg Dontae Ball Other [facility] [employer] Other 08-16-2023 08:30-0500 Diastolic blood pressure 76 mm[Hg] Dontae Ball Other [facility] [employer] Other 08-16-2023 08:30-0500 Respiratory rate 12 /min Dontae Ball Other [facility] [employer] Other 08-16-2023 08:30-0500 Systolic blood pressure 155 mm[Hg] Dontae Ball Other [employer] Other 05-12-2023 13:45-0400 Body height 168.91 cm Dontae Ball Other [employer] Other 05-12-2023 13:45-0400 Body mass index (BMI) [Ratio] 18.44 kg/m2 Dontae Ball Other [employer] Other 05-12-2023 13:45-0400 Body weight 52.62 kg Dontae Ball Other [employer] Other 05-12-2023 13:45-0400 Diastolic blood pressure 88 mm[Hg] Dontae Ball Other [employer] Other 05-12-2023 13:45-0400 Respiratory rate 12 /min Dontae Ball Other [employer] Other 05-12-2023 13:45-0400 Systolic blood pressure 138 mm[Hg] Dontae Ball Other [employer] Other 04-22-2023 13:30-0400 Body height 168.91 cm Travis Richter Other [employer] Other 04-22-2023 13:30-0400 Body mass index (BMI) [Ratio] 18.28 kg/m2 Travis Richter Other [employer] Other 04-22-2023 13:30-0400 Body weight 52.16 kg Travis Richter Other [employer] Other 04-22-2023 13:30-0400 Diastolic blood pressure 78 mm[Hg] Travis Richter Other [employer] Other 04-22-2023 13:30-0400 Systolic blood pressure 137 mm[Hg] Travis Richter Other [employer] Other 03-18-2023 09:15-0400 Body height 168.91 cm Dontae Ball Other [employer] Other 03-18-2023 09:15-0400 Body mass index (BMI) [Ratio] 18.25 kg/m2 Dontae Ball Other [employer] Other 03-18-2023 09:15-0400 Body weight 52.07 kg Dontae Ball Other [employer] Other 03-18-2023 09:15-0400 Diastolic blood pressure 77 mm[Hg] Dontae Ball Other [employer] Other 03-18-2023 09:15-0400 Respiratory rate 12 /min Dontae Ball Other [employer] Other 03-18-2023 09:15-0400 Systolic blood pressure 145 mm[Hg] Dontae Ball Other [employer] Other 04-21-2022 15:15-0400 Body height 168.91 cm Travis Richter Other [employer] Other 04-21-2022 15:15-0400 Body mass index (BMI) [Ratio] 18.28 kg/m2 Travis Richter Other [employer] Other 04-21-2022 15:15-0400 Body weight 52.16 kg Travis Neelam Other [employer] Other Encounters Encounter Date Encounter Type Care Provider Facility Start: 11-29-2024 End: 11-29-2024 ambulatory Dontae Ball DO Work Phone: [facility] Work Phone: Start: 11-29-2024 End: 11-29-2024 Patient encounter procedure Dontae Ball DO Work Phone: [facility]ician [facility] Work Phone: Start: 10-30-2024 End: 10-30-2024 ambulatory Dontae Ball DO Work Phone: [facility] Work Phone: Start: 10-30-2024 End: 10-30-2024 Patient encounter procedure Dontae Ball DO Work Phone: [facility] Work Phone: Start: 10-11-2024 End: 10-11-2024 ambulatory Dontae Ball DO Work Phone: [facility] Work Phone: Start: 10-11-2024 End: 10-11-2024 Patient encounter procedure Dontae Ball DO Work Phone: [facility] Physician [facility] Work Phone: Start: 10-06-2024 End: 10-06-2024 Patient encounter procedure Dontae Ball DO Work Phone: [facility] [place] Work Phone: Start: 10-06-2024 End: 10-06-2024 ambulatory Dontae Ball DO Work Phone: [facility] Work Phone: Start: 09-26-2024 End: 09-26-2024 ambulatory Dontae Ball DO Work Phone: [facility] Work Phone: Start: 09-26-2024 End: 09-26-2024 Patient encounter procedure Dontae Ball DO Work Phone: [facility] Work Phone: Start: 08-31-2024 End: 08-31-2024 Patient encounter procedure Dontae Ball DO Work Phone[facility] Work Phone: Start: 08-30-2024 End: 08-30-2024 Patient encounter procedure Dontae Ball DO Work Phone: [facility] Physician [facility] Work Phone: Start: 08-18-2024 End: 08-18-2024 Patient encounter procedure Dontae Ball DO Work Phone: [facility] Work Phone: Start: 08-15-2024 Patient encounter procedure Dontae Ball DO Work Phone: [facility] Start: 08-15-2024 End: 08-15-2024 Patient encounter procedure Dontae Ball DO Work Phone: [facility] Work Phone: Start: 08-15-2024 End: 08-15-2024 ambulatory Alex Francois Facility:[facility] Start: 08-09-2024 Non-patient / Non-visit Benjam in Ball DO Work Phone: [facility] Work Phone: Start: 08-02-2024 End: 08-02-2024 ambulatory Dontae Ball DO Work Phone: [facility] Work Phone: Start: 08-02-2024 End: 08-02-2024 Patient encounter procedure Dontae Ball DO Work Phone: [facility] Physician [facility] Work Phone: Start: 07-24-2024 End: 07-24-2024 Patient encounter procedure Dontae Ball DO Work Phone: [facility] Physician [facility] Work Phone: Start: 07-12-2024 Non-patient / Non-visit DO Marc suyapa Ball Work Phone: [facility] Work Phone: Start: 07-11-2024 Non-patient / Non-visit DO Marc suyapa Ball Work Phone: [facility] Work Phone: Start: 07-11-2024 End: 07-13-2024 Admission to same day surgery center DO Dontae Ball Work Phone: [facility] [place] Start: 07-11-2024 End: 07-13-2024 ambulatory DO Dontae Ball Work Phone: [facility] Work Phone: Start: 07-04-2024 End: 07-04-2024 ambulatory DO Dontae Ball Work Phone: [facility] Work Phone: Start: 07-04-2024 End: 07-04-2024 Patient encounter procedure DO Dontae Ball Work Phone: [facility] Physician [facility] Neuro[facility] Work Phone: Start: 06-29-2024 End: 06-29-2024 Patient encounter procedure DO Dontae Ball Work Phone: [facility]-Pre-Surgical Testing Work Phone: Start: 06-29-2024 End: 06-29-2024 ambulatory DO Dontae Ball Work Phone: [facility] Work Phone: Start: 06-29-2024 Encounter for preprocedural laboratory examination Alex Francois [facility] Start: 06-26-2024 End: 06-26-2024 ambulatory DO Dontae Ball Work Phone: [facility] Work Phone: Start: 06-26-2024 End: 06-26-2024 Patient encounter procedure DO Dontae Ball Work Phone: [facility] Work Phone: Start: 06-22-2024 End: 06-22-2024 ambulatory TOMÁS PIPPA [facility] Start: 06-21-2024 Non-patient / Non-visit DO Marc Uribe Work Phone: [facility] G[facility] Work Phone: Start: 06-21-2024 End: 06-21-2024 Admission to same day surgery center DO Dontae Ball Work Phone: [facility] Work Phone: Start: 06-21-2024 End: 06-21-2024 ambulatory DO Dontae Uribe Work Phone: [facility] Work Phone: Start: 2024 End: 2024 ambulatory DO Dontae Uribe Work Phone: [facility] Work Phone: Start: 2024 End: 2024 Patient encounter procedure DO Dontae Uribe Work Phone: [facility] Work Phone: Start: 2024 End: 2024 Patient encounter procedure DO Dontae Uribe Work Phone: [facility]-CT Scan [facility] [place] Work Phone: Start: 2024 End: 2024 ambulatory Alex Francois Facility:[facility] Start: 06-12-2024 End: 06-12-2024 ambulatory [facility] Work Phone: Start: 06-12-2024 End: 06-12-2024 Patient encounter procedure [facility] Neurosurgery Work Phone: Start: 06-09-2024 End: 06-09-2024 ambulatory [facility] Work Phone: Start: 06-09-2024 End: 06-09-2024 Patient encounter procedure [facility] Gastroenterology Work Phone: Start: 05-30-2024 End: 05-30-2024 ambulatory [facility] Work Phone: Start: 05-30-2024 End: 05-30-2024 Patient encounter procedure [facility] Work Phone: Start: 05-08-2024 End: 05-08-2024 ambulatory [facility] Work Phone: Start: 05-08-2024 End: 05-08-2024 Patient encounter procedure [facility] Work Phone: Start: 04-28-2024 End: 04-28-2024 ambulatory [facility] Work Phone: Start: 04-28-2024 End: 04-28-2024 Patient encounter procedure [facility] Work Phone: Start: 04-14-2024 End: 04-14-2024 ambulatory [facility] Work Phone: Start: 04-14-2024 End: 04-14-2024 Patient encounter procedure [facility] Work Phone: Start: 03-28-2024 End: 03-28-2024 ambulatory [facility] Work Phone: Start: 03-28-2024 End: 03-28-2024 Patient encounter procedure [facility] Work Phone: Start: 03-20-2024 End: 03-20-2024 ambulatory [facility] Work Phone: Start: 03-20-2024 End: 03-20-2024 Patient encounter procedure [facility] Work Phone: Start: 03-01-2024 End: 03-01-2024 ambulatory PAM PALACIO Not Available Start: 02-21-2024 End: 02-21-2024 ambulatory [facility] Work Phone: Start: 02-21-2024 End: 02-21-2024 Patient encounter procedure [facility]ician [facility] Work Phone: Start: 02-16-2024 Non-patient / Non-visit [facility] Physician [facility] Work Phone: Start: 02-02-2024 End: 02-02-2024 ambulatory [facility] Start: 01-28-2024 Non-patient / Non-visit [facility] Physician [facility] Work Phone: Start: 01-25-2024 End: 01-25-2024 ambulatory [facility] Work Phone: Start: 01-25-2024 End: 01-25-2024 Patient encounter procedure [facility] Physician [facility] Work Phone: Start: 01-05-2024 End: 01-05-2024 [facility] Start: 12-24-2023 End: 12-24-2023 ambulatory [facility] Work Phone: Start: 12-24-2023 End: 12-24-2023 Patient encounter procedure [facility] Physician [facility] Work Phone: Start: 12-22-2023 End: 12-22-2023 ambulatory [facility] Work Phone: Start: 12-22-2023 End: 12-22-2023 Patient encounter procedure [facility] Physician [facility] Work Phone: Start: 12-15-2023 End: 12-15-2023 ambulatory [facility] Work Phone: Start: 12-15-2023 End: 12-15-2023 Patient encounter procedure [facility] Physician [facility] Work Phone: Start: 12-15-2023 Non-patient / Non-visit [facility] Physician [facility] Work Phone: Start: 12-15-2023 End: 12-15-2023 ambulatory [facility] Start: 12-08-2023 End: 12-08-2023 ambulatory [facility] Work Phone: Start: 12-08-2023 End: 12-08-2023 Patient encounter procedure [facility] Physician [facility] Work Phone: Start: 12-07-2023 Non-patient / Non-visit [facility] Physician [facility] Work Phone: Start: 12-01-2023 End: 12-01-2023 Patient encounter procedure [facility] Physician [facility] Work Phone: Start: 11-30-2023 End: 11-30-2023 Patient encounter procedure [facility] Physician [facility] Work Phone: Start: 11-26-2023 Non-patient / Non-visit [facility] Physician [facility] Work Phone: Start: 11-23-2023 Non-patient / Non-visit [facility] Physician [facility] Work Phone: Start: 08-19-2023 End: 08-19-2023 ambulatory Dontae Uribe Other [facility] Other Start: 08-19-2023 Telephone encounter Dontae Uribe [facility] Start: 08-16-2023 End: 08-16-2023 ambulatory Dontae Uribe Other [facility] Other Start: 08-16-2023 Patient encounter procedure Dontae Uribe [facility] Start: 05-27-2023 End: 05-27-2023 ambulatory Dontae Uribe Other [facility] Other Start: 05-27-2023 Telephone encounter Dontae [facility] Start: 05-12-2023 End: 05-12-2023 ambulatory Dontae Uribe Other [facility] Other Start: 05-12-2023 Office outpatient vi sit 15 minutes Dontae Ball [facility] Start: 04-22-2023 End: 04-22-2023 ambulatory Travis Richter Other [facility] Other Start: 04-22-2023 Office outpatient vi sit 15 minutes Travis Richter [facility] Start: 03-18-2023 End: 03-18-2023 ambulatory Dontae Uribe Other [facility] Other Start: 03-18-2023 Office outpatient vi sit 15 minutes Dontae Ball [facility] Start: 03-12-2023 End: 03-12-2023 ambulatory Dontae Uribe Other [facility] Other Start: 03-12-2023 Office outpatient vi sit 15 minutes Dontae Ball [facility] Start: 03-09-2023 End: 03-09-2023 ambulatory Dnotae Uribe Other [facility] Other Start: 03-09-2023 Telephone encounter Dontae Uribe [facility] Start: 01-14-2023 End: 01-14-2023 ambulatory Dontae Uribe Other [facility] Other Start: 01-14-2023 Telephone encounter Dontae Uribe [facility] Start: 01-11-2023 End: 01-11-2023 ambulatory Dontae Asuncion Other [facility] Other Start: 01-11-2023 Office outpatient vi sit 15 minutes Dontae [facility] Start: 11-24-2022 End: 11-25-[address] DONTAE URIBE Facility:[facility] Start: 10-16-2022 End: 10-16-2022 ambulatory Dontae Asuncion Other [facility] Other Start: 10-16-2022 Office outpatient vi sit 15 minutes Dontae Uribe [facility] Start: 10-16-2022 Telephone encounter Dontae Uribe [facility] Start: 10-06-2022 End: 10-07-2022 ambulatory TOÁMS DAS Facility:[facility] Start: 09-15-2022 Adult health examination Dontae Uribe Other [facility] Other Start: 07-03-2022 ambulatory TOMÁS DAS Facility:[facility] Start: 04-21-2022 End: 04-21-2022 ambulatory Travis Richter Other [facility] Other Start: 04-21-2022 Office outpatient vi sit 15 minutes Travis Richter [facility] Start: 04-14-2022 End: 04-15-[address] JANAY AJ Facility:[facility] Start: 03-05-2022 End: 03-06-[address] JANAY AJ Facility:[facility] Start: 11-27-2021 End: 11-28-[address] DONTAE URIBE Facility:[facility] Start: 04-02-2021 End: 04-06-2021 Evaluation and management of inpatient FELISADaniel HYATT Facility:[facility] Start: 03-25-2021 End: 03-26-2021 ambulatory FELISA HYATT Facility:[facility] Start: 03-17-2021 End: 03-18-2021 ambulatory JANAY AJ Facility:[facility] Procedures Date Procedure Procedure Detail Performing Clinician Start: 10-06-2024 X-ray of lumbar spine, two or three views Dontae Uribe DO Work Phone: Start: 08-15-2024 X-ray of lumbar spine, two or three views Dontae Asuncion DO Work Phone: Start: 07-12-2024 X-ray of lumbar spine, two or three views DO Dontae Ball Work Phone: Start: 07-11-2024 CT of lumbar spine without contrast DO Dontae Uribe Work Phone: Start: 07-11-2024 OR Lumbar Laminectomy w/Fix Implants (Not Applicable) DO Dontae Uribe Work Phone: Start: 07-11-2024 X-ray of lumbar spine, two or three views DO Dontae Uribe Work Phone: Start: 06-29-2024 Antibody screen Dontae Uribe Comment on above: Order Comment: Date of Surgery: [id number] Result Comment: PERF ORMED BY: [facility] [address] [place] [address] PATHOLOGIST DINING ROOM SUPERVISOR SHARIF ARNOLD M.D. Start: 06-21-2024 Esophagogastroduodenoscopy DO Dontae mcneil Work Phone: Start: 2024 CT of lumbar spine without contrast DO Dontae Uribe Work Phone: Start: 2024 X-ray of lumbar spine, six views including bending views DO Dontae Uribe Work Phone: Start: 04-02-2021 ASSIST WITH CARDIAC OUTPUT USING BALLOON PUMP, CONTINUOUS FELISA MASROOR Start: 04-02-2021 BYPASS 1 COR ART FROM L INT MAMMARY, OPEN APPROACH FELISA MASROOR Start: 04-02-2021 BYPASS 4+ COR ART FROM AORTA WITH AUTOL VN, OPEN APPROACH FELISA MASROOR Start: 04-02-2021 EXCISION OF LEFT SAPHENOUS VEIN, PERC ENDO APPROACH FELISA MASROOR Start: 03-25-2021 Antibody screen FELISA MASROOR Comment on above: Performed By: #### [id number] #### [facility] [address] Coronary artery bypass graft Dontae Uribe Other Depression screening Kushal Uribe Other Screening for malign ant neoplasm of breast Dontae Uribe Other Plan of Treatment Date Care Activity Detail Author Start: 10-11-2024 Patient referral [facility] Work Phone: Start: 07-13-2024 [facility] Start: 07-11-2024 Referral to clinical chair frame builder [facility] Start: 07-11-2024 Hospital admission [facility] Start: 07-11-2024 [facility] Start: 06-21-2024 End: 06-21-2024 [facility] Lumbar spine WO contrast [facility] MG Breast - bilatera l Screening [facility] MR Brain WO contrast [facility] MR Lumbar spine WO contrast [facility] Patient Education [facility] Work Phone: Patient referral [facility] Work Phone: US.doppler Carotid a rteries - bilateral [facility] XR Hip - right 2 Views [facility] XR Lumbar spine 2 or 3 Views [facility] XR Lumbar spine 2 or 3 Views [facility] XR Lumbar spine 2 or 3 Views [facility] XR Lumbar spine Views [facility] XR Lumbar spine Views [facility] XR Pelvis and Hip - bilateral Views [facility] Immunizations Immunization Date Immunization Notes Care Provider Fa [facility] 08-04-2024 influenza, seasonal, injectable, preservative free Dontae Ball DO Work Phone: [facility] 08-28-2023 COVID-19 (MODERNA) 12Y and older DO Dontae Ball Work Phone: [facility] 07-27-2023 influenza virus vaccine, unspecified formulation [facility] 07-27-2023 influenza, high dose seasonal, preservative-free Dontae Ball Other [facility] Other 07-23-2023 Influenza vaccine, quadrivalent, adjuvanted Dontae Ball DO Work Phone: [facility] 07-18-2022 influenza, injectabl e, quadrivalent, preservative free Dontae Ball DO Work Phone: [facility] 07-01-2022 COVID-19 mRNA Bivale nt Booster (Moderna) DO Dontae Ball Work Phone: [facility] 09-17-2021 COVID-19 Vaccine Pfi zer - Documentation Purposes Only Dontae Uribe Other [facility] 09-17-2021 influenza, injectabl e, quadrivalent, preservative free Dontae Uribe DO Work Phone: [facility] 08-29-2021 COVID-19 mRNA-1273 (Moderna) [facility] 12-20-2020 COVID-19 mRNA, Comirnaty (Pfizer) [facility] 11-29-2020 COVID-19 mRNA, Comirnaty (Pfizer) [facility] 01-14-2018 diphtheria, tetanus toxoids and acellular pertussis vaccine, unspecified formulation Dontae Uribe Other [facility] Payers Date Payer Category Payer Self-pay [id number] 1958 Medicare [id number] 1958 Self-pay [id number] 1959 Unknown [id number] 1950 Unknown [id number] 2.16.8 [id number] 1950 Unknown [id number] 2.16.8 [id number] 1950 Unknown [id number] 2.16.8 40.1.096367.3.579.2.647 1950 Unknown [id number] 2.16.84 [id number] 1950 Unknown [id number] 2.16.84 0.1.796138.3.579.2.593 1950 Unknown [id number] 2.16.84 0.1.872799.3.579.2.593 1950 Unknown [id number] 2.16.84 0.1.479363.3.579.2.593 1950 Unknown [id number] 2.16.84 0.1.860144.3.579.2.1259 Unknown [id number] 2.16.84 0.1.896279.3.579.2.593 Unknown [id number] 2.16.84 [id number] Unknown [facility] [id number] Unknown [id number] 2.16.8 40.1.751487.3.579.2.531 Unknown [id number] 2.16.8 40.1.231006.3.579.2.531 Unknown [id number] 2.16.8 40.1.759310.3.579.2.531 Unknown [id number] 2.16.8 40.1.104310.3.579.2.531 Unknown [id number] 2.16.8 40.1.578033.3.579.2.531 Unknown [id number] 2.16.8 40.1.646659.3.579.2.531 Social History Date Type Detail Facility Unknown if ever smoked [facility] Other Sex Assigned At Sex Assigned At Bir th [facility] Other Start: 03-10-2022 Tobacco smoking status HIIS Ex-smoker (finding) [facility] Start: 1950 Sex Assigned At Female F [facility] Start: 06-12-2024 End: 07-11-2024 Tobacco smoking status HIIS Never smoked tobacco (finding) [facility] Start: 08-02-2024 End: 11-29-2024 Sex Female (finding) [facility] Medical Equipment Procedure Code Equipment Code Equipment Origin al Text Equipment Identifier Dates STRATOFUSE DBM 5CC FDA Start: 07-11-2024 Bone-screw inter nal spinal fixation system, non-sterile [id number] FDA Start: 07-11-2024 Bone-screw inter nal spinal fixation system, non-sterile [id number] FDA Start: 07-11-2024 Polymeric spinal interbody fusion cage [id number] FDA Start: 07-11-2024 Bone-screw inter nal spinal fixation system, non-sterile [id number] FDA Start: 07-11-2024 Bone-screw inter nal spinal fixation system, non-sterile [id number] FDA Start: 07-11-2024 Bone-screw inter nal spinal fixation system, non-sterile [id number] FDA Start: 07-11-2024 STRATOFUSE DBM 5CC FDA Start: 07-11-2024 STRATOFUSE DBM 5CC FDA Start: 07-11-2024 STRATOFUSE DBM 5CC FDA Start: 07-11-2024 STRATOFUSE DBM 5CC FDA Start: 07-11-2024 STRATOFUSE DBM 5CC FDA Start: 07-11-2024 Goals Date Patient Goal Desired Activity /State Functional Status Date Assessment Result Facility 07-13-2024 Functional status Patient Not at Baseline [facility] Work Phone: Mental Status Date Assessment Result Facility 07-13-2024 Cognitive function Cognitive Sta tus Patient at Baseline [facility] Work Phone: Clinical Notes 09-20-2012 to 08-31-2024 Note Date & Type Note Facility 08-31-2024 Evaluation note Diagnosis Onset Date Resolution Asthma acute August 31, 2024 11:39am Acute sinusitis noneactive August 31, 2024 11:39am Lumbar spondylosis acute Sepuar 2024 8:43am Hip pain acute November 29 1:22pm Lumbar spondylosis acute November 29, 2024 1:22pm Acute sinusitis noneactive November 1:22pm [facility] Work Phone: 1(591) 246-484911-29-2024 Evaluation note* Diagnosis Onset Date Resolution Status Admit Date ASHD (arteriosclerotic heart disease) acute August 18, 024 8:51am Asthma acute August 18, 2024 8:51am Gastroesophageal reflux dise ase with esophagitis without hemorrhage acute August 18 024 8:51am Hypercholesterolemia acute Nove mber 2024 8:51am Hypertension acute July 8:51am Medicare annual wellness vis it, subsequent acute August 18 8:51am Paroxysmal atrial fibrillation acute August 18, 2024 8:51am Pernicious anemia acute 2023 8:51am Screening mammogram for kelvin st cancer acute August 18 8:51am Low back pain acute August 302023 8:44am Asthma acute August 31, 2024 11:39am Acute sinusitis noneactive August 31, 2024 11:39am Lumbar spondylosis acute 2024 8:43am [facility] Work Phone: 1(931) 526-529111-04-2024 Evaluation note* Diagnosis Onset Date Resolution Status Admit Date Lumbar spondylosis acute Novemb 2023 8:45am ASHD (arteriosclerotic heart disease) acute August 18 8:51am Asthma acute August 18, 2024 8:51am Gastroesophageal reflux dise ase with esophagitis without hemorrhage acute August 18 8:51am Hypercholesterolemia acute 2023 8:51am Hypertension acute July 8:51am Medicare annual wellness vis it, subsequent acute August 18 8:51am Paroxysmal atrial fibrillation acute August 18, 2024 8:51am Pernicious anemia acute 2023 8:51am Screening mammogram for kelvin st cancer acute August 18 8:51am Low back pain acute August 302023 8:44am Asthma acute August 31, 2024 11:39am Acute sinusitis noneactive August 31, 2024 11:39am [facility] Work Phone: 1(952) 120-609310-24-2024 Progress note Author Alex Francois [facility] July 13, 2024 7:41am Note Date/Time July 13, 2024 7 :41am [facility] [address] [place], [place] [id number] Neurosurgery Progress Note Signed Patient: Sj Brewster MR#: [id number] : 1950 Acct:[id number] Age/Sex: 74 / F Adm Date: 4 Loc: 4 Room: [address] [place] [address] Type: [facility] [place] Dr: Alex Francois DO Copies to: ~ Date of Service: 07/13/2024 Subjective Subjective HPI: This morning's been seen and examined at bedside on morning rounds this morning. She states that she has had a drastic improvement with her back pain and her right leg symptoms. She is postop day 1 from L4-5 posterior lumbar interbody fusion. She has no new chief complaints at this time and is very pleased with her postsurgical course. Exam Physical Exam Vital Signs: Temp Pulse Resp BP Pulse Ox O2 Del Method O2 Flow Rate 98.4 F 85 16 167/76 H 97 Room Air 2 07/13/24 04:00 07/13/24 04:00 07/13/24 04:00 07/13/24 04:00 07/13/24 04:00 07/13/24 04:00 07/11/24 16:21 Narrative: Patient alert and oriented by 3 Neck supple Affect appropriate Cranial nerves II through XII intact and symmetrical Deltoid bicep tricep and beam department supervisor 5/5 bilateral Upper extremity sensory normal to light touch throughout Iliopsoas hamstring quadricep anterior tibial gastrocnemius 5/5 bilateral lower extremities Lower extremity sensory normal light touch throughout Objective Lab Results Most Recent Labs: 07/13/24 04:36: Corrected WBC 14.4 H, Uncorrected WBC Count 14.4 H, RBC 3.15 L, Hgb 10.2 L, Hct 30.1 L, MCV 95.8, MCH 32.5, MCHC 34.0, RDW 13.2, Plt Count 284, MPV 8.0, Neut % (Auto) 92.9, Lymph % (Auto) 3.1, [place] % (Auto) 3.8, Eos % (Auto)0.1, Baso % (Auto) 0.1, Nucleat RBC Rel Count 0.0, Neut # (Auto) 13.4 H, Lymph #(Auto) 0.4 L, [place] # (Auto) 0.6, Eos # (Auto) 0.0, Baso # (Auto) 0.0, PHA Creatinine Clear 51.31, Sodium 140 D, Potassium 5.0, Chloride 106, Carbon Dioxide 25.9, Anion Gap 13.1, BUN 17, Creatinine 0.73, Est GFR (CKD-EPI) > 60.0,Glucose 119 H, Calcium 8.9 07/12/24 12:08: Corrected WBC 17.3 H, Uncorrected WBC Count 17.3 H, RBC 3.48 L, Hgb 11.1 L, Hct 33.3 L, MCV 95.7, MCH 31.9, MCHC 33.3, RDW 13.3, Plt Count 319, MPV 7.2, Neut % (Auto) 94.5, Lymph % (Auto) 2.2, [place] % (Auto) 3.1, Eos % (Auto)0.0, Baso % (Auto) 0.2, Nucleat RBC Rel Count 0.0, Neut # (Auto) 16.4 H, Lymph #(Auto) 0.4 L, [place] # (Auto) 0.5, Eos # (Auto) 0.0, Baso # (Auto) 0.0, PHA Creatinine Clear 48.87, Sodium 133 L, Potassium 4.6, Chloride 100, Carbon Dioxide 26.5, Anion Gap 11.1, BUN 14, Creatinine 0.84, Est GFR (CKD-EPI) > 60.0,Glucose 125 H, Calcium 8.9 Assessment/Plan Assessment/Plan (1) Accelerated hypertension: (2) Lumbar spondylosis: (3) Low back pain: Qualifiers: Chronicity: chronic Back pain laterality: right Sciatica presence: with sciatica Sciatica laterality: sciatica of right side Qualified Code(s): M54.41 - Lumbago with sciatica, right side; G89.29 - Other chronic pain (4) Hypercholesterolemia: Plan In summary this patient is a 74-year-old female postoperative day 2 from a L4-5 posterior lumbar body fusion secondary to having back pain as well as intractable right lower extremity radiculopathy. At this time the patient has been up and ambulate with physical therapy has beencleared for discharge. She has had a postoperative x-rays which I reviewed as well. She has met all discharge goals and at this point we will move towards discharge today. I did discuss her discharge instruction as well as her restrictions. We will plan on discharging today with outpatient follow-up. Sheexpresses sincere gratitude for the services rendered and drastic improvement with her back and right lower extremity radiculopathy and gracious for the improvements seen. All questions were answered to the satisfaction of this patient and she is in agreement with the above plan. Documented By: Alex Francois DO 07/13/24 0738 Signed By: <Electronically signed by Alex Francois DO> 07/13/24 0741 [facility] Work Phone: 1(536) 192-950710-23-2024 Progress note Author Calin Adams [facility] July 12, 2024 3:30pm Note Date/Time July 12, 2024 3 :23pm [facility] [address] [place] [address] Hospitalist Progress Note Signed Patient: Sj Brewster MR#: [id number] : 1950 Acct:[id number] Age/Sex: 74 / F Adm Date: 4 Loc: Room: [address] [place] [address] Type: REG SDC Attending Dr: Alex Francois DO Copies to: ~ Date of Service: 07/12/2024 Subjective Subjective Narrative: Patient feeling well today. Has some minimal lower back spasms, but otherwise feeling well. She was able to work with physical and Occupational Therapy and tolerated it well. Remains afebrile and hemodynamically stable. Blood pressures have been better controlled in the past 12 hours. Exam Physical Exam Vital Signs: Temp Pulse Resp BP Pulse Ox O2 Del Method O2 Flow Rate 97.5 F L 90 16 133/63 98 Room Air 2 07/12/24 11:16 07/12/24 11:16 07/12/24 11:16 07/12/24 11:16 07/12/24 11:16 07/12/24 11:16 07/11/24 16:21 Narrative: Constitutional: Pleasant, elderly WF, resting in bed comfortably HEENT: Moist mucous membranes, neck supple Cardiovascular: RRR, no M/R/G, normal S1 and S2, no JVD Respiratory: Lungs clear to auscultation bilaterally, no wheezes, rales or rhonchi GI: Soft, NTND, normoactive bowel sounds : Deferred Neuro: AAO x3, no focal deficits. CN III-XII grossly intact, Strength 5/5 throughout Extremities: No clubbing, cyanosis or edema Psych: Patient calm, cooperative and conversant Objective Lab Results 07/12/24 12:08 07/12/24 12:08 Meds Allergies and Active Meds Allergies Cephalosporins Allergy (Unknown, Verified 07/11/24 06:18) Rash ciprofloxacin [From Cipro] Allergy (Unknown, Verified 07/11/24 06:18) Rash penicillin G benzathine Allergy (Unknown, Verified 07/11/24 06:18) shortness of breath, rash Dxdhicg-PJG-UvV Reductase Inhibitor [Gqqhnql-Mhg-Hbg Reductase Inhibitor] Allergy (Unknown, Verified 07/11/24 06:18) Joint Pain Sulfa (Sulfonamide Antibiotics) Allergy (Unknown, Verified 07/11/24 06:18) Rash cefaclor [From Ceclor] Allergy (Verified 07/11/24 06:18) Rash Penicillins Allergy (Verified 07/11/24 06:18) Rash Active Meds: Active Medications Generic Name Dose Route Start Last Admin Trade Name Freq PRN Reason Stop Dose Admin Acetaminophen/Codeine Phosphate 1 tab 07/11/24 17:00 07/12/24 12:31 Acetaminophen-Codeine 300-30mg Tablet PO 01/07/25 16:59 1 tab Q4H PRN Administration Pain Al Hydrox/Mg Hydrox/Simethicone 30 ml 07/11/24 13:50 Mag Hydrox/Al Hydrox/Simeth 30 Ml Udc PO 07/11/25 13:49 Q4H PRN Heartburn Albuterol 2 puff 07/11/24 13:50 Albuterol Hfa 60 Puff/8 Gram Inhaler INHALATION 07/11/25 13:49 DAILY PRN shortness of breath or wheezing Carvedilol 25 mg 07/11/24 17:00 07/12/24 08:56 Carvedilol 25 Mg Tablet PO 07/11/25 16:59 25 mg BID.WITH.MEALS ART Administration Cyclobenzaprine HCl 10 mg 07/11/24 13:50 Cyclobenzaprine 10 Mg Tablet PO 07/11/25 13:49 Q8HR PRN Muscle Spasm Dexamethasone Sodium Phosphate 2 mg 07/11/24 14:00 07/12/24 14:21 Dexamethasone Sod Phosphate 4 Mg/Ml Vial IV-PUSH 07/14/24 13:59 2 mg QID ART Administration Taper Diphenhydramine HCl 25 mg 07/11/24 13:50 Diphenhydramine 25 Mg Capsule PO 07/11/25 13:49 Q6H PRN Itching Ezetimibe 10 mg 07/12/24 09:00 07/12/24 08:56 Ezetimibe 10 Mg Tablet PO 07/12/25 08:59 10 mg QAM ART Administration Famotidine 20 mg 07/12/24 21:00 Famotidine 20 Mg Tablet PO 07/12/25 20:59 BID ART Furosemide 20 mg 07/12/24 09:00 07/12/24 08:55 Furosemide 20 Mg Tablet PO 07/12/25 08:59 20 mg QAM ART Administration Hydralazine HCl 10 mg 07/11/24 20:25 Hydralazine 20 Mg/Ml Vial IV-PUSH 07/11/25 20:24 Q4H PRN Hypertension Hydromorphone HCl 1 mg 07/11/24 13:50 Hydromorphone 1 Mg/Ml Syringe IV-PUSH Q2H PRN Pain Hydromorphone HCl 0.5 mg 07/11/24 13:50 07/12/24 04:41 Hydromorphone 0.5 Mg/0.5 Ml Syringe IV-PUSH 0.5 mg Q2H PRN Administration Pain Losartan Potassium 50 mg 07/12/24 09:00 07/12/24 08:56 Losartan 50 Mg Tablet PO 07/12/25 08:59 50 mg QAM ART Administration Magnesium Hydroxide 30 ml 07/11/24 13:50 Magnesium Hydroxide Susp 30 Ml Udc PO 07/11/25 13:49 HS PRN Constipation Nitroglycerin 0.4 mg 07/11/24 13:50 Nitroglycerin 0.4 Mg Tab.Subl SUBLINGUAL 07/11/25 13:49 Q5MIN.X3 PRN chest pain Ondansetron HCl 4 mg 07/11/24 13:50 07/11/24 21:59 Ondansetron 4 Mg/2 Ml Vial IV-PUSH 07/11/25 13:49 4 mg Q6H PRN Administration Nausea And Vomiting Senna/Docusate Sodium 2 tab 07/11/24 21:00 07/12/24 08:55 Sennosides/Docusate 8.6-50mg 1 Tab Tablet PO 07/11/25 20:59 2 tab BID ART Administration Sodium Chloride 0 ml 07/11/24 06:02 07/12/24 14:21 Sodium Chloride 0.9 % 10 Ml Syringe IV-PUSH 07/11/25 06:01 10 ml PRN PRN Administration Flush A&P - Hospitalist Assessment/Plan (1) Accelerated hypertension: (2) Lumbar spondylosis: (3) Low back pain: (4) Hypercholesterolemia: Plan Lumbar Radiculopathy Lumbar stenosis and spondylolisthesis Postoperative day #1 from lumbar spinal fusion. Patient doing well postoperatively -Postoperative care per neurosurgery -Pain control and supportive care otherwise -Steroids per therapy Accelerated Hypertension Somewhat elevated blood pressures postoperatively. Can simply monitor closely at this time -Continue Coreg, losartan, Lasix -IV hydralazine as needed for BP greater than 180/105 Leukocytosis Reactive secondary to surgical intervention yesterday. Patient also started on steroid therapy yesterday. -Monitor CBC -No need for antibiotic therapy at this time Other chronic medical conditions noted below, continue home regimens unless otherwise specified: CAD status-post CABG x 5 Asthma GERD CODE STATUS: Full Code Documented By: Calin Adams MD 4 1522 Signed By: <Electronically signed by Calin Adams MD> 07/12/24 1530 [facility] Work Phone: [phone]) 987-820210-23-2024 Progress note Author Alex Francois [facility] July 12, 2024 9:26am Note Date/Time July 12, 2024 9 :26am [facility] [address] [place] [address] Neurosurgery Progress Note Signed Patient: Sj Brewster MR#: [id number] : 1950 Acct:[id number] Age/Sex: 74 / F Adm Date: 4 Loc: Room: [address] [place] [address] Type: REG SDC Attending Dr: Alex Francois DO Copies to: ~ Date of Service: 07/12/2024 Subjective Subjective HPI: Patient's been seen and examined on morning rounds this morning. She states almost resolution of not only her right leg symptoms but also her back pain. She expresses her sincere gratitude for surgery and states that she feels drastically improved from what she was from her preoperative state. She has no new chief complaints at this time denies any new symptoms at this time she is postoperative day 1 from an L4- 5 posterior lumbar interbody fusion. Exam Physical Exam Vital Signs: Temp Pulse Resp BP Pulse Ox O2 Del Method O2 Flow Rate 98.4 F 81 16 156/65 H 97 Room Air 2 07/12/24 07:46 07/12/24 07:46 07/12/24 07:46 07/12/24 07:46 07/12/24 07:46 07/12/24 07:48 07/11/24 16:21 Narrative: Patient alert and oriented by 3 Neck supple Affect appropriate Cranial nerves II through XII intact and symmetrical Deltoid bicep tricep and beam department supervisor 5/5 bilateral Upper extremity sensory normal to light touch throughout Iliopsoas hamstring quadricep anterior tibial gastrocnemius 5/5 bilateral lower extremities Lower extremity sensory normal light touch throughout Assessment/Plan Assessment/Plan (1) Accelerated hypertension: (2) Lumbar spondylosis: (3) Low back pain: Qualifiers: Chronicity: chronic Back pain laterality: right Sciatica presence: with sciatica Sciatica laterality: sciatica of right side Qualified Code(s): M54.41 - Lumbago with sciatica, right side; G89.29 - Other chronic pain (4) Hypercholesterolemia: Plan In summary this patient is a 74-year-old female postoperative day 1 from a L4-5 posterior lumbar interbody fusion secondary to having intractable right lower extremity radiculopathy with back pain which is now improved. At this time we discussed her postoperative course where we do want her mobilized with physical therapy today. She needs her back brace on when she is out of bed. We discussed discharge planning with anticipated discharge tomorrowto which she is in agreement with. She did ask if she could be sent home with Zofran as well as Tenormin at. She is taking Tylenol 3 and Flexeril which we will also send her home with tomorrow. I will obtain x-rays for her prior to discharge to help with outpatient observation of the instrumentation internally. Medical for help with blood pressure as she had significant elevated systolic blood pressures yesterday has a history of a quintuple bypass surgery. Today quiana may mobilize the patient with physical therapy and progress towards discharge which anticipate discharge tomorrow. All questions were answered to the satisfaction of this patient she is in agreement with the above plan and again expresses her sincere gratitude for surgery. Documented By: Alex Francois DO 07/12/24923 Signed By: <Electronically signed by Alex Francois DO> 07/12/24925 [facility] Work Phone: 1([phone]) 643-847210-22-2024 Consult note Author aClin Adams [facility] July 11, 2024 8:45pm Note Date/Time July 11, 2024 7 :59pm [facility] [address] [place] [address] Hospitalist Consult Note Signed Patient: Sj Brewster MR#: [id number] : 1950 Acct:[id number] Age/Sex: 74 / F Adm Date: 4 Loc: Room: [address] [place] [address] Type: REG SDC Attending Dr: Alex Francois DO Copies to: DO Alex Kilpatrick DO Frederick E Doamekpor, MD~ HPI DATE OF CONSULTATION: 07/11/24 REQUESTING PROVIDER: Alex Francois Consult Narrative Reason for Consult: Medical management, hypertension HPI: Ms. Herman is a 74-year-old female with PMH of CAD status post CABG in 2020, asthma, HTN, HLD, GERD, chronic dysphagia, lumbar spondylosis who is being managed postoperatively after lumbar fusion due to symptoms of low back pain andlumbar radiculopathy. Patient did have some hypertension status post procedure and hospitalist team was consulted for medical management of hypertension. Blood pressure was reportedly in the 190s systolic, and patient states that at home her blood pressures usually run in the 120s to 130s systolic. She denies any fever/chill, chest pain, nausea/vomiting or other symptoms at this time. She states she already feels less pressure in her lower back after the procedurehas been completed today. Review of Systems Review of Systems Review of systems: 10 point ROS reviewed and is negative except for that which is noted above in HPI [facility] Medical History (Updated 07/11/24 @ 20:37 by Calin Adams MD) Lumbar spondylosis Low back pain Acute bronchitis due to other specified organisms Hypercholesterolemia Nausea Cough Dizziness Headache Pernicious anemia Asthma Seasonal allergic rhinitis due to pollen Schatzki's ring Post-COVID syndrome Paroxysmal atrial fibrillation Migraine with aura and without status migrainosus, not intractable Menopause Irritable bowel syndrome with constipation Hiatal hernia Gastroesophageal reflux disease with esophagitis without hemorrhage Esophageal stricture Eczema, dyshidrotic ASHD (arteriosclerotic heart disease) Age-related osteoporosis without current pathological fracture Acute recurrent maxillary sinusitis Anemia Hypertension Diverticulosis Stroke 2015 lacunar infarct posterior frontal lobe no deficits Heart attack right 2008 Surgical History History of appendectomy Hx of CABG x5 with patch aorta Cataract (~03/2024) B/L cataract History of esophagogastroduodenoscopy (EGD) (~06/2024) 06/2024 required dilatation schatzki's ring H/O: hysterectomy H/O section H/O heart artery stent 2008 stents x 4 Family History Mother Myocardial infarction Father Myocardial infarction Social History Smoking Status: Never smoker Substance Use Type: None Meds Medications and Allergies Allergies Cephalosporins Allergy (Unknown, Verified 07/11/24 06:18) Rash ciprofloxacin [From Cipro] Allergy (Unknown, Verified 07/11/24 06:18) Rash penicillin G benzathine Allergy (Unknown, Verified 07/11/24 06:18) shortness of breath, rash Zvleiqk-CDW-NjM Reductase Inhibitor [Cmecubd-Xmv-Mha Reductase Inhibitor] Allergy (Unknown, Verified 07/11/24 06:18) Joint Pain Sulfa (Sulfonamide Antibiotics) Allergy (Unknown, Verified 07/11/24 06:18) Rash cefaclor [From Ceclor] Allergy (Verified 07/11/24 06:18) Rash Penicillins Allergy (Verified 07/11/24 06:18) Rash Home Medications aspirin 81 mg tablet,delayed release (Aspir-Low) 1 tab PO QHS 07/07/17 [History Confirmed 07/11/24] carvedilol 25 mg tablet 25 mg PO BID 03/10/22 [History Confirmed 07/11/24] evolocumab 140 mg/mL subcutaneous syringe (Repatha Syringe) 140 mg subcut RURSOS56/21/22 [History Confirmed 06/29/24] ezetimibe 10 mg tablet (Zetia) 10 mg PO QAM 03/10/22 [History Confirmed 06/29/24] furosemide 20 mg tablet (Lasix) 20 mg PO QAM 11/30/23 [History Confirmed 07/11/24] nitroglycerin 0.4 mg sublingual tablet 0.4 mg sublingual Q5-15M PRN chest pain 30 days #25 tabs 12/24/23 [Rx Confirmed 06/29/24] acetaminophen 300 mg-codeine 30 mg tablet 1 tab PO Q6HR PRN pain 06/21/24 [History Confirmed 06/29/24] acetaminophen 500 mg tablet (Acetaminophen Extra Strength) 500 mg PO Q6HR PRN pain 06/29/24 [History Confirmed 07/11/24] albuterol sulfate 90 mcg/actuation aerosol inhaler 2 puff inhalation DAILY PRN shortness of breath or wheezing 06/29/24 [History Confirmed 07/11/24] losartan 50 mg tablet 50 mg PO QAM 06/29/24 [History Confirmed 07/11/24] prednisone 5 mg/5 mL oral solution 5 mg (5 mL) PO .COMPLEX 30 days #120 mL 07/06/24 [Rx] tizanidine 4 mg tablet 4 mg PO QHS PRN muscle spasticity 30 days #30 tabs 07/10/24 [Rx] Active Medications: Active Medications Generic Name Dose Route Start Last Admin Trade Name Freq PRN Reason Stop Dose Admin Acetaminophen/Codeine Phosphate 1 tab 07/11/24 17:00 07/11/24 18:42 Acetaminophen-Codeine 300-30mg Tablet PO 01/07/25 16:59 1 tab Q4H PRN Administration Pain Al Hydrox/Mg Hydrox/Simethicone 30 ml 07/11/24 13:50 Mag Hydrox/Al Hydrox/Simeth 30 Ml Udc PO 07/11/25 13:49 Q4H PRN Heartburn Albuterol 2 puff 07/11/24 13:50 Albuterol Hfa 60 Puff/8 Gram Inhaler INHALATION 07/11/25 13:49 DAILY PRN shortness of breath or wheezing Carvedilol 25 mg 07/11/24 17:00 07/11/24 16:38 Carvedilol 25 Mg Tablet PO 07/11/25 16:59 25 mg BID.WITH.MEALS ART Administration Cyclobenzaprine HCl 10 mg 07/11/24 13:50 Cyclobenzaprine 10 Mg Tablet PO 07/11/25 13:49 Q8HR PRN Muscle Spasm Dexamethasone Sodium Phosphate 4 mg 07/11/24 14:00 07/11/24 18:05 Dexamethasone Sod Phosphate 4 Mg/Ml Vial IV-PUSH 07/14/24 13:59 4 mg QID ART Administration Taper Diphenhydramine HCl 25 mg 07/11/24 13:50 Diphenhydramine 25 Mg Capsule PO 07/11/25 13:49 Q6H PRN Itching Ezetimibe 10 mg 07/12/24 09:00 Ezetimibe 10 Mg Tablet PO 07/12/25 08:59 QAM ART Famotidine 20 mg 07/11/24 21:00 Famotidine/Pf 20 Mg/2 Ml Vial IV-PUSH 07/11/25 20:59 Q12HR ART Furosemide 20 mg 07/12/24 09:00 Furosemide 20 Mg Tablet PO 07/12/25 08:59 QAM [facility] Hydromorphone HCl 1 mg 07/11/24 13:50 Hydromorphone 1 Mg/Ml Syringe IV-PUSH Q2H PRN Pain Hydromorphone HCl 0.5 mg 07/11/24 13:50 07/11/24 14:14 Hydromorphone 0.5 Mg/0.5 Ml Syringe IV-PUSH 0.5 mg Q2H PRN Administration Pain Lactated Ringer's 1,000 mls @ 20 mls/hr 07/11/24 06:02 07/11/24 10:40 Lactated Ringers IV 07/12/24 06:01 20 mls/hr .Q24H ONE Infusion Potassium Chloride/Dextrose/Sod Cl 1,000 mls @ 100 mls/hr 07/11/24 14:15 07/11/24 15:47 D5w-0.9 % Nacl-20 Meq Kcl IV 07/12/24 00:14 100 mls/hr .Q10H ART Administration Vancomycin HCl 1 gm in 250 mls @ 250 mls/hr 07/11/24 20:00 Vancomycin IV 07/12/24 08:59 Q12H ART Losartan Potassium 50 mg 07/12/24 09:00 Losartan 50 Mg Tablet PO 07/12/25 08:59 QAM ART Magnesium Hydroxide 30 ml 07/11/24 13:50 Magnesium Hydroxide Susp 30 Ml Udc PO 07/11/25 13:49 HS PRN Constipation Nitroglycerin 0.4 mg 07/11/24 13:50 Nitroglycerin 0.4 Mg Tab.Subl SUBLINGUAL 07/11/25 13:49 Q5MIN.X3 PRN chest pain Evolocumab [Repatha 140 mg 07/21/24 09:00 Syringe] 140 Mg/Ml SUBCUT 07/21/25 08:59 Syringe Q30D ART Ondansetron HCl 4 mg 07/11/24 13:50 07/11/24 14:17 Ondansetron 4 Mg/2 Ml Vial IV-PUSH 07/11/25 13:49 4 mg Q6H PRN Administration Nausea And Vomiting Senna/Docusate Sodium 2 tab 07/11/24 21:00 Sennosides/Docusate 8.6-50mg 1 Tab Tablet PO 07/11/25 20:59 BID ART Sodium Chloride 0 ml 07/11/24 06:02 Sodium Chloride 0.9 % 10 Ml Syringe IV-PUSH 07/11/25 06:01 PRN PRN Flush Sodium Chloride 10 ml 07/11/24 13:50 Sodium Chloride 0.9 % 10 Ml Vial.Pf INJECTION 07/11/25 13:49 PRN PRN To dilute Pepcid Exam Physical Exam Vital Signs: Temp Pulse Resp BP Pulse Ox O2 Del Method O2 Flow Rate 98.1 F 80 20 192/85 H 100 Nasal Cannula 2 07/11/24 11:00 07/11/24 18:05 07/11/24 15:45 07/11/24 18:05 07/11/24 15:45 07/11/24 16:21 07/11/24 16:21 Narrative: Constitutional: Pleasant, elderly WF, resting in bed comfortably HEENT: Moist mucous membranes, neck supple Cardiovascular: RRR, no M/R/G, normal S1 and S2, no JVD Respiratory: Lungs clear to auscultation bilaterally, no wheezes, rales or rhonchi GI: Soft, NTND, normoactive bowel sounds : Deferred Neuro: AAO x3, no focal deficits. CN III-XII grossly intact, Strength 5/5 throughout Extremities: No clubbing, cyanosis or edema Psych: Patient calm, cooperative and conversant Results - Hospitalist Consult Lab Results Labs: Laboratory Results - last 72 hr 07/11/24 06:40: Blood Type Recheck A Negative Assessment & Plan Assessment/Plan (1) Accelerated hypertension: (2) Lumbar spondylosis: (3) Low back pain: (4) Hypercholesterolemia: Plan Lumbar Radiculopathy Lumbar stenosis and spondylolisthesis Postoperative day #0 from lumbar spinal fusion. Patient doing well postoperatively -Postoperative care per neurosurgery Accelerated Hypertension Somewhat elevated blood pressures postoperatively. Can simply monitor closely at this time -Continue Coreg, losartan, Lasix -IV hydralazine as needed for BP greater than 180/105 Other chronic medical conditions noted below, continue home regimens unless otherwise specified: CAD status-post CABG x 5 Asthma GERD CODE STATUS: Full code Documented By: Calin Adams MD 1950 Signed By: <Electronically signed by Calin Adams MD> 07/11/242044 [facility] Work Phone: 1(359) 544-179910-22-2024 Evaluation note* Diagnosis Onset Date Resolution Status Admit Date Accelerated hypertension acute July 11, 2024 5:52am Hypercholesterolemia acute Juno chandrakant 2023 5:52am Low back pain acute June 5:52am Lumbar spondylosis acute Octobe r 2023 5:52am Lumbar spondylosis acute Novemb er 2023 8:45am ASHD (arteriosclerotic heart disease) acute August 18 8:51am Asthma acute August 18, 2024 8:51am Gastroesophageal reflux dise ase with esophagitis without hemorrhage acute August 18 8:51am Hypercholesterolemia acute Nove mber 2023 8:51am Hypertension acute July 8:51am Medicare annual wellness vis it, subsequent acute August 18 8:51am Paroxysmal atrial fibrillation acute August 18, 2024 8:51am Pernicious anemia acute Novem r 2023 8:51am Screening mammogram for [facility] cancer acute August 18 8:51am Low back pain acute August 302023 8:44am Asthma acute August 31, 2024 11:39am Acute sinusitis noneactive August 31, 2024 11:39am [facility] Work Phone: 1(462) 459-208710-03-2024 NoteCoronary artery disease is stable, no concerning symptoms currently Continue GDMT- ASA, coreg, repatha, zetia Lipids are well controlled and liver function normal continue risk factor modifications- heart healthy diet, regular exercise as tolerated and continue all medications.[facility] 06-22-2024 NoteHypertension is well controlled 138/82 Continue losartan and coreg. Renal function stableUnUniversity [facility]10-03-2024 NotePt is here for a six month follow up. Pt denies chest pain, sob, palpatations. Review of Systems Constitutional: Positive for malaise/fatigue. Cardiovascular: Positive for dyspnea on exertion. All other systems reviewed and are negative.[facility] 06-22-2024 NoteUTP CARDIOLOGY PROGRESS NOTE HPI: Sj Brewster is a 74 y.o. female here for routine F/U HPI 74 y.o. female here for Coronary Artery Disease, Hyperlipidemia, and Hypertension. Overall she states from a heart aspect she is doing well. Planning to have lumbar spine surgery at [facility]. States her fatigue and shortness of breath is about it's usual and no worse. Pt denies chest pain, palpatations. Review of Systems Constitutional: Positive for malaise/fatigue. Cardiovascular: Positive for dyspnea on exertion. All other systems reviewed and are negative. 02/02/[address] Aj Chief Complaint: Patient here for 1 mo [...] no paroxysmal: Dyspnea. No lower extremity edema. Visit Vitals BP 138/82 Pulse 85 Ht 1.676 m (5' 6 ) Wt 51.3 kg (113 lb) SpO2 97% BMI 18.24 kg/m??? Smoking Status Never BSA 1.55 m??? Allergies Allergen Reactions Cephalosporins Hives and Rash Penicillins Hives and Rash Fjjtavq-Epx-Cdp Reductase Inhibitors Other Muscle pain and Joint pain Ciprofloxacin Hives, Itching and Rash Medications: Current Outpatient Medications on File Prior to Visit Medication Sig Dispense Refill aspirin 81 mg EC tablet aspirin 81 mg tablet,delayed release TAKE ONE TABLET BY MOUTH EVERY DAY carvedilol (Coreg) 25 mg tablet TAKE ONE TABLET BY MOUTH TWICE A DAY 180 tablet 3 evolocumab (Repatha SureClick) 140 mg/mL pen injector Inject 1 mL under the skin every 30 (thirty) days. 6 mL 3 ezetimibe (Zetia) 10 mg tablet TAKE 1 TABLET (10 MG) BY MOUTH ONCE DAILY DIRECTED. 90 tablet 3 furosemide (Lasix) 20 mg tablet Take 1 tablet (20 mg) by mouth in the morning. 90 tablet 3 losartan (Cozaar) 50 mg tablet Take 1 tablet (50 mg) by mouth in the morning. 90 tablet 3 pantoprazole (ProtoNix) 40 mg EC tablet Take 40 mg by mouth before breakfast. Do not crush, chew, or split. tiZANidine (Zanaflex) 4 mg tablet Take 4 mg by mouth every 6 (six) hours if needed for muscle spasms. albuterol 90 mcg/actuation inhaler albuterol sulfate HFA 90 mcg/actuation aerosol inhaler INHALE 2 PUFFS EVERY 4 HOURS NEEDED FOR COUGH AND SHORTNESS OF BREATH [DISCONTINUED] losartan (Cozaar) 25 mg tablet TAKE ONE TABLET BY MOUTH ONCE DAILY (Patient not taking: Reported on 06/22/2024) 90 tablet 3 No current facility-administered medications on file prior [...] soft. Musculoskeletal: General: Normal range of motion. Limited ROM spine r/t pain. Right lower leg: No edema. Left lower leg: No edema. Skin: General: Skin is warm and dry. Capillary Refill: Capillary refill takes less than 2 seconds. Neurological: General: No focal deficit present. Mental Status: She is alert and oriented to person, place, and time. Psychiatric: Mood and Affect: Mood normal. Behavior: Behavior normal. Thought Content: Thought content normal. Judgment: Judgmen (more content not included)...[facility]10-03-2024 NoteContinue Repatha and Zetia.[facility]10-03-2024 NoteContinue CoregUnUniversity [facility]als [facility]10-02-[facility]24 [facility]* Diagnosis Onset Date Resolution Status Admit Date Acute bronchitis due to othe r specified organisms acute May 08, 2024 3:00pm Mild persistent asthma with acute exacerbation deleted May 08 3:00pm Low back pain acute May 212023 3:29pm Lumbar spondylosis acute 2023 3:29pm Irritable bowel syndrome wit h constipation acute June 09, 2024 8:51am Schatzki's ring acute June 09, 2024 8:51am Dysphagia inactive May 8:51am Low back pain acute May 222023 10:10am ASHD (arteriosclerotic heart disease) acute 2024 1:44pm Asthma acute May 1:44pm Low back pain acute May 222023 1:44pm Lumbar spondylosis acute Septem 2023 1:44pm Lumbar spondylosis acute Octobe r 2023 10:46am Accelerated hypertension acute July 11, 2024 5:52am Hypercholesterolemia acute Octo 2023 5:52am Low back pain acute June 5:52am Lumbar spondylosis acute Octobe r 2023 5:52am Lumbar spondylosis acute Novemb er 2023 8:45am [facility] Work Phone: 1(781) 910-838605-15-2024 [facility] Chief Complaint: [...] Father Alzheimer's disease Father Allergies Cephalosporins, Penicillins, Dumkfnv-cta-wdh reductase inhibitors, and Ciprofloxacin Medications Current Outpatient [...] 06/03/2021: Global left v (more content not included)...[facility] 01-05-2024 [facility] Chief Complaint: [...] Father Alzheimer's disease Father Allergies Cephalosporins, Penicillins, Ytkxefl-qxh-yrc reductase inhibitors, and Ciprofloxacin Medications Current Outpatient [...] Endoscopic vein harvesting of (more content not included)...[facility]03-27-2024 [facility] Chief Complaint: [...] Father Alzheimer's disease Father Allergies Cephalosporins, Penicillins, Ayywaao-uyy-nsz reductase inhibitors, and Ciprofloxacin Medications Current Outpatient [...] right ventricle is normal (more content not included)...[facility] 08-16-2023 Evaluation note* Encounter Date Diagnosis Assessment Notes Treatment Notes Treatment Clinical Notes Jul, Medicare annual well ness visit, subsequent (ICD-10 - Z00.00) Personalized health [...] amended by provider signed below. Jul, ASHD (arteriosclerot ic heart disease) (ICD-10 - I25.10) This patient [...] are maintaining regular scheduled appts with their drinking water technician. Jul, Pure hypercholestero lemia (ICD-10 - E78.00) Instructed on diet and exercise with continued statin therapy.Discussed the beneficial effects of lowering cholesterol in reducing the risk for cerebrovascular and cardiovascular disease. Jul, Mild persistent asth ma without complication (ICD-10 - J45.30) Instructed to [...] High risk medication use (ICD-10 - Z79.899) [facility] Other 09-07-2023 Evaluation note* Encounter Date Diagnosis Assessment Notes Treatment Notes Treatment Clinical Notes May, Acute cough (ICD-10 - R05.1) [facility] Other 08-23-2023 Evaluation note* Encounter Date Diagnosis [...] 135/85 May be increased due to pain [facility] Other 08-03-2023 Evaluation note* Encounter Date Diagnosis [...] is taking OTC probiotics RTO 1 year [facility] Other 06-29-2023 Evaluation note* Encounter Date Diagnosis [...] quality. Continue LABA/ICS and SHERLYN as needed [facility] Other 06-23-2023 Evaluation note* Encounter Date Diagnosis [...] SHERLYN to q 4 hours as needed [facility] Other 06-20-2023 Evaluation note* Encounter Date Diagnosis Assessment Notes Treatment Notes Treatment Clinical Notes Feb, Mild intermittent asthma with acute exacerbation (ICD-10 - J45.21) [facility] Other 04-27-2023 Evaluation note* Encounter Date Diagnosis Assessment Notes Treatment Notes Treatment Clinical Notes Dec, Acute non-recurrent maxillary sinusitis (ICD-10 - J01.00) [facility] Other 04-24-2023 Evaluation note* Encounter Date Diagnosis [...] or severe dyspnea. Restart Prednisone as needed [facility] Other 01-27-2023 Evaluation note* Encounter Date Diagnosis [...] to continue exercise and AHA diet plan. [facility] Other 01-27-2023 Evaluation note* Encounter Date Diagnosis Assessment Notes Treatment Notes Treatment Clinical Notes Sep, Acute non-recurrent maxillary sinusitis (ICD-10 - J01.00) [facility] Other 08-02-2022 Evaluation note* Encounter Date Diagnosis Assessment Notes Treatment Notes Treatment Clinical Notes Apr, Dysphagia (ICD-10 - R13.10) Apr, Schatzki's ring (ICD-10 - Q39.4) Apr, Constipation (ICD-10 - K59.00) CONTINUE MIRALAX PRN CONTINUE COLACE WITHOUT CHANGE RTO ONE YEAR Apr, Abdominal pain (ICD-10 - R10.9) CONTINUE BENTYL WITHOUT CHANGE [facility] Other 08-18-2021 NoteMR#: [id number] I [facility] Pt. Name: Sj Brewster Admitted: 04/02/2021 [...] Shoemaker CNP Date Trans: 05/07/2021 03:44 P/refugio [id number] cc: Dontae Uribe D.O. [address] [place] [address], [address] [facility] [id number] general Narrative - Reported* Type Description [...] Total Hysterectomy 1978 Hospitalization History Appendectomy 1968 [facility] Other Discharge summary Author Alex Francois [facility] July 13, 2024 8:01am Note Date/Time July 13, 2024 8 :01am [facility] [address] [place], [place] [id number] Discharge Summary Signed Patient: Sj Brewster MR#: [id number] : 1950 Acct:[id number] Age/Sex: 74 / F Adm Date: 4 Loc: 4 Room: [address] [place] [address]: Alex Francois DO Copies to: DO Alex Kilpatrick, ~ Providers Date of Discharge: 07/13/24 Discharging Provider: Alex Francois Primary Care Provider: Dontae Uribe Consults: 07/11/24 13:50 Consult to Occupational Therapy Routine Comment: Physician Instructions: Consult to OT for:: Evaluation and Treat Consult to Physical Therapy Routine Comment: Physician Instructions: Consult to PT for:: Evaluation and Treat 07/11/24 18:16 Consult to Adult Hospitalist Routine Comment: Consulting Provider: Calin Adams Reason For Exam: Medical management, BP Has Provider Been Notified: Yes Date of Notification: 07/11/24 Time of Notification: 18:25 Discharge Diagnosis (1) Accelerated hypertension: (2) Lumbar spondylosis: (3) Low back pain: (4) Hypercholesterolemia: Final Diagnosis Final Discharge Diagnosis: Lumbar radiculopathy, Lumbar back pain Summary Hospital Course Hospital course: Falls intractable right lower extremity radiculopathy and was found to have a L4-5 spondylolisthesis with significant L4-5 central stenosis foraminal stenosis. She underwent L4-5 posterior lumbar interbody fusion. She had noted postoperative that she had a drastic improvement not only with her back pain butalso her right lower extremity symptoms. She did have x-rays prior during her postoperative course medical was following her for help with blood pressure. She has met discharge goals and has been cleared by physical therapy for discharge as well. We anticipate discharging patient today. Discharge instructions were explained to the patient at bedside this morning as well. Time Spent with Patient Time spent providing/coordinating discharge services (# min): 10 Surgeries and Procedures Operation Date: 07/11/24 07:30 Actual Procedures p OR PLIF L4-5, Nerve Monitoring(Not Applicable) - Alex Francois, DO Discharge Plan Discharge Plan Patient Disposition: Home Activity: Ambulate as Tolerated Comment: LSO back brace on when out of bed Diet: Regular Comment: May resume pre operative diet at home Additional Instructions: Wear LSO back brace when out of bed. Keep incision covered for 3 days. After 3 days, may remove dressing. May shower after 3 days but do not scrub incision. May pat dry and clean in shower with antibiotic soap. No pools, bathes, hot tubs, standing bodies of water until seen in clinic. Avoidfor [address] 1-2 weeks after surgery if not taking pain medications. If any redness, swelling, drainage, odor develops, call our office. Follow up appointment shall be in 2 weeks. Please call with any questions. Instructions: Know your Meds Prescriptions: New cyclobenzaprine 10 mg tablet 10 mg PO TID PRN (Reason: back spasms) Qty: 30 0RF prednisone 10 mg tablets,dose pack 10 mg PO PER PKG DIR Qty: 30 0RF Rx Instructions: take 4 tabs for 3 days then take 3 tabs for 3 days then take 2 tabs for 3 days then take 1 tab for 3 days cyclobenzaprine 10 mg tablet 10 mg PO TID PRN (Reason: back spasms) Qty: 30 0RF acetaminophen-codeine 300-30 mg tablet 1 tab PO Q4HR PRN (Reason: pain) 7 Days Qty: 30 0RF ondansetron HCl 4 mg tablet 4 mg PO Q8HR PRN (Reason: nausea and vomiting) 5 Days Qty: 20 0RF Continued nitroglycerin 0.4 mg tablet, sublingual 0.4 mg sublingual Q5-15M PRN (Reason: chest pain) 30 Days Qty: 25 1RF Rx Instructions: do not exceed 3 doses per episode carvedilol 25 mg tablet 25 mg PO BID Patient Comments: TAKE ONE TABLET BY MOUTH TWICE A DAY ezetimibe [Zetia] 10 mg Tablet 10 mg PO QAM Repatha Syringe 140 mg/mL Syringe 140 mg SUBCUT QMONTH Patient Comments: first of the month losartan 50 mg tablet 50 mg PO QAM albuterol sulfate 90 mcg/actuation HFA aerosol inhaler 2 puff inhalation DAILY PRN (Reason: shortness of breath or wheezing) Rx Instructions: INHALE 2 PUFFS EVERY 4 HOURS NEEDED FOR COUGH AND SHORTNESS OF BREATH 17 furosemide [Lasix] 20 mg tablet 20 mg PO QAM Discontinued prednisone 5 mg/5 mL solution 5 mg PO .COMPLEX 30 Days Qty: 120 1RF Rx Instructions: 1 tsp PO tid x 3 days, then 1 tsp PO bid x 3 days, then 1 tsp PO qd x 3 days PRN wheezing, cough tizanidine 4 mg tablet 4 mg PO QHS PRN (Reason: muscle spasticity) 30 Days Qty: 30 2RF acetaminophen-codeine 300-30 mg tablet 1 tab PO Q6HR PRN (Reason: pain) aspirin [Aspir-Low] 81 mg Tablet,Delayed Release (Dr/Ec) 1 tab PO QHS acetaminophen [Acetaminophen Extra Strength] 500 mg tablet 500 mg PO Q6HR PRN (Reason: pain) Follow Up: Alex Francois DO [Active Staff] - 07/26/24 10:00 am (Call our office to obtain and confirm 2 week follow up appointment) Exam Physical Exam Vital Signs: Temp Pulse Resp BP Pulse Ox O2 Del Method O2 Flow Rate 98.4 F 85 16 167/76 H 97 Room Air 2 07/13/24 04:00 07/13/24 04:00 07/13/24 04:00 07/13/24 04:00 07/13/24 04:00 07/13/24 04:00 07/11/24 16:21 Narrative: Patient alert and oriented by 3 Neck supple Affect appropriate Cranial nerves II through XII intact and symmetrical Deltoid bicep tricep and beam department supervisor 5/5 bilateral Upper extremity sensory normal to light touch throughout Iliopsoas hamstring quadricep anterior tibial gastrocnemius 5/5 bilateral lower extremities Lower extremity sensory normal light touch throughout Diagnostic Studies Completed and Pending Studies Labs on day of discharge: 07/13/24 04:36: Corrected WBC 14.4 H, Uncorrected WBC Count 14.4 H, RBC 3.15 L, Hgb 10.2 L, Hct 30.1 L, MCV 95.8, MCH 32.5, MCHC 34.0, RDW 13.2, Plt Count 284, MPV 8.0, Neut % (Auto) 92.9, Lymph % (Auto) 3.1, [place] % (Auto) 3.8, Eos % (Auto)0.1, Baso % (Auto) 0.1, Nucleat RBC Rel Count 0.0, Neut # (Auto) 13.4 H, Lymph #(Auto) 0.4 L, [place] # (Auto) 0.6, Eos # (Auto) 0.0, Baso # (Auto) 0.0, PHA Creatinine Clear 51.31, Sodium 140 D, Potassium 5.0, Chloride 106, Carbon Dioxide 25.9, Anion Gap 13.1, BUN 17, Creatinine 0.73, Est GFR (CKD-EPI) > 60.0,Glucose 119 H, Calcium 8.9 07/12/24 12:08: Corrected WBC 17.3 H, Uncorrected WBC Count 17.3 H, RBC 3.48 L, Hgb 11.1 L, Hct 33.3 L, MCV 95.7, MCH 31.9, MCHC 33.3, RDW 13.3, Plt Count 319, MPV 7.2, Neut % (Auto) 94.5, Lymph % (Auto) 2.2, [place] % (Auto) 3.1, Eos % (Auto)0.0, Baso % (Auto) 0.2, Nucleat RBC Rel Count 0.0, Neut # (Auto) 16.4 H, Lymph #(Auto) 0.4 L, [place] # (Auto) 0.5, Eos # (Auto) 0.0, Baso # (Auto) 0.0, PHA Creatinine Clear 48.87, Sodium 133 L, Potassium 4.6, Chloride 100, Carbon Dioxide 26.5, Anion Gap 11.1, BUN 14, Creatinine 0.84, Est GFR (CKD-EPI) > 60.0,Glucose 125 H, Calcium 8.9 Documented By: Alex Francois, 07/13/24 0759 Signed By: <Electronically signed by Alex Francois, DO> 07/13/24 0801 [facility] Work Phone: Evaluation noteNo [employer] Other Evaluation note* Diagnosis Onset Date Resolution Status Mild persistent asthma with acute exacerbation acute Acute sinusitis noneactive [facility] Work Phone: Evaluation note* Diagnosis Onset Date Resolution Status Mild persistent asthma with acute exacerbation acute Acute sinusitis noneactive ASHD (arteriosclerotic heart disease) acute Asthma acute Gastroesophageal reflux dise ase with esophagitis without hemorrhage acute Hyperlipidemia type II acute Paroxysmal atrial fibrillation acute [facility] Work Phone: Evaluation note* Diagnosis Onset Date Resolution Status Mild persistent asthma with acute exacerbation acute Acute sinusitis noneactive ASHD (arteriosclerotic heart disease) acute Asthma acute Gastroesophageal reflux dise ase with esophagitis without hemorrhage acute Hyperlipidemia type II acute Paroxysmal atrial fibrillation acute Pernicious anemia acute [facility] Work Phone: Evaluation note* Diagnosis Onset [...] acute Hypertension acute Abnormal stress test noneact [facility] Work Phone: Evaluation note* Diagnosis Onset Date Resolution Status ASHD (arteriosclerotic heart disease) acute Dizziness acute Headache acute Hypertension acute Abnormal stress test noneact [facility] Work Phone: Evaluation note* Diagnosis Onset Date Resolution Status ASHD (arteriosclerotic heart disease) acute Dizziness acute Headache acute Hypertension acute Abnormal stress test noneact sang ASHD (arteriosclerotic heart disease) acute Asthma acute Gastroesophageal reflux dise ase with esophagitis without hemorrhage acute Hypercholesterolemia acute Hypertension acute Paroxysmal atrial fibrillation acute Pernicious anemia acute [facility] Work Phone: Evaluation note* Diagnosis Onset Date Resolution Status ASHD (arteriosclerotic heart disease) acute Asthma acute Gastroesophageal reflux dise ase with esophagitis without hemorrhage acute Hypercholesterolemia acute Hypertension acute Paroxysmal atrial fibrillation acute Pernicious anemia acute [facility] Work Phone: Evaluation note* Diagnosis Onset Date Resolution Status ASHD (arteriosclerotic heart disease) acute Asthma acute Gastroesophageal reflux dise ase with esophagitis without hemorrhage acute Hypercholesterolemia acute Hypertension acute Paroxysmal atrial fibrillation acute Pernicious anemia acute Acute bronchitis due to other specified organisms acute Mild persistent asthma with acute exacerbation acute Low back pain acute Lumbar spondylosis acute [facility] Work Phone: Evaluation note* Diagnosis Onset Date Resolution Status ASHD (arteriosclerotic heart disease) acute Asthma acute Gastroesophageal reflux dise ase with esophagitis without hemorrhage acute Hypercholesterolemia acute Hypertension acute Paroxysmal atrial fibrillation acute Pernicious anemia acute Acute bronchitis due to other specified organisms acute Mild persistent asthma with acute exacerbation acute Low back pain acute Lumbar spondylosis acute Irritable bowel syndrome with constipation acute Schatzki's ring acute [facility] Work Phone: Evaluation note* Diagnosis Onset Date Resolution Status Cough acute Mild persistent asthma with acute exacerbation acute Nausea acute Acute bronchitis due to other specified organisms noneactive ASHD (arteriosclerotic heart disease) acute Asthma acute Gastroesophageal reflux dise ase with esophagitis without hemorrhage acute Hypercholesterolemia acute Hypertension acute Paroxysmal atrial fibrillation acute Pernicious anemia acute Acute bronchitis due to other specified organisms acute Mild persistent asthma with acute exacerbation acute Low back pain acute Lumbar spondylosis acute Irritable bowel syndrome with constipation acute Schatzki's ring acute Low back pain acute [facility] Work Phone: Evaluation note* Diagnosis Onset Date Resolution Status Cough acute Nausea acute Acute bronchitis due to other specified organisms noneactive ASHD (arteriosclerotic heart disease) acute Asthma acute Gastroesophageal reflux dise ase with esophagitis without hemorrhage acute Hypercholesterolemia acute Hypertension acute Paroxysmal atrial fibrillation acute Pernicious anemia acute Acute bronchitis due to other specified organisms acute Low back pain acute Lumbar spondylosis acute Irritable bowel syndrome with constipation acute Schatzki's ring acute Low back pain acute ASHD (arteriosclerotic heart disease) acute Asthma acute Low back pain acute Lumbar spondylosis acute [facility] Work Phone: Evaluation note* Diagnosis Onset Date Resolution Status ASHD (arteriosclerotic heart disease) acute Asthma acute Gastroesophageal reflux dise ase with esophagitis without hemorrhage acute Hypercholesterolemia acute Hypertension acute Paroxysmal atrial fibrillation acute Pernicious anemia acute Acute bronchitis due to other specified organisms acute Low back pain acute Lumbar spondylosis acute Irritable bowel syndrome with constipation acute Schatzki's ring acute Low back pain acute ASHD (arteriosclerotic heart disease) acute Asthma acute Low back pain acute Lumbar spondylosis acute [facility] Work Phone: Evaluation note* Diagnosis Onset Date Resolution Status ASHD (arteriosclerotic heart disease) acute Asthma acute Gastroesophageal reflux dise ase with esophagitis without hemorrhage acute Hypercholesterolemia acute Hypertension acute Paroxysmal atrial fibrillation acute Pernicious anemia acute Acute bronchitis due to other specified organisms acute Low back pain acute Lumbar spondylosis acute Irritable bowel syndrome with constipation acute Schatzki's ring acute Low back pain acute ASHD (arteriosclerotic heart disease) acute Asthma acute Low back pain acute Lumbar spondylosis acute Lumbar spondylosis acute [facility] Work Phone: Evaluation note* Diagnosis Onset Date Resolution Status ASHD (arteriosclerotic heart disease) acute Asthma acute Gastroesophageal reflux dise ase with esophagitis without hemorrhage acute Hypercholesterolemia acute Hypertension acute Paroxysmal atrial fibrillation acute Pernicious anemia acute Acute bronchitis due to other specified organisms acute Low back pain acute Lumbar spondylosis acute Irritable bowel syndrome with constipation acute Schatzki's ring acute Low back pain acute ASHD (arteriosclerotic heart disease) acute Asthma acute Low back pain acute Lumbar spondylosis acute Lumbar spondylosis acute Accelerated hypertension acu te Hypercholesterolemia acute Low back pain acute Lumbar spondylosis acute [facility] Work Phone: History and physical note Author Kym Sanchez [facility] June 21, 2024 12:57pm Note Date/Time June 21, 2024 12 :57pm [facility] [address] [place] [id number] Gastroenterology H&P Signed Patient: Sj Brewster MR#: [id number] : 1950 Acct:[id number] Age/Sex: 74 / F Adm Date: 4 Loc: Room: Type: [facility] Attending Dr: Kym Sanchez DO Copies to: DO Kym Kilpatrick DO~ Date of Service: 06/21/2024 HISTORY & PHYSICAL: Patient's history with special attention to the cardiovascular, pulmonary systems and the current problem was reviewed with the patient immediately prior to the procedure. Present medications and doses reviewed in the EMR. Allergies and pertinent laboratory tests were also reviewedat this time in the EMR. The physical examination, as below, was then performed. Indication, assessment and HPI: 74-year-old female who presents for EGD for dysphagia and history of Schatzki's ring. Family history of GI malignancy? No PHYSICAL EXAMINATION General appearance: cooperative, NAD Skin: No jaundice, no rash or lesions Head: NCAT Eyes: Anicteric Neck: Supple Lungs: Normal respiratory effort, no use of accessory muscles Abdomen: Soft, nondistended Neuro: No focal deficits, Ox3. REVIEW OF SYSTEMS Constitutional: Denies malaise, fevers Cardiovascular: Denies chest pain, palpitations Respiratory: Denies shortness of breath, wheezing Gastrointestinal: As per HPI Genitourinary: Denies dysuria, polyuria Musculoskeletal: Denies joint swelling, joint stiffness Neurological: Denies confusion, numbness, tingling Endocrine: Denies fatigue Written informed consent obtained from the patient. Risks (including but not limited to perforation, infection, bloating, bleeding, need for emergent surgeryand loss of life), benefits and alternatives explained and questions answered. The patient verbalized understanding. Based on history patient is an appropriate candidate for the procedure. Kym Sanchez DO Present medication and doses reviewed in the EMR Documented By: Kym Sanchez DO 06/21/24 1256 Signed By: <Electronically signed by Kym Sanchez DO> 06/21/24 1257 [facility] Work Phone: History general Narrative - Reported* [...] Medical History Mild intermittent asthma with ac prosper exacerbation Medical History Eczema, dyshidrotic Medical History [...] Total Hysterectomy 1978 Hospitalization History Appendectomy 1968 [facility] Other History general Narrative - Reported* Type [...] Medical History Mild intermittent asthma with ac prosper exacerbation Medical History Eczema, dyshidrotic Medical History [...] Total Hysterectomy 1978 Hospitalization History Appendectomy 1968 [facility] Other Hospital Discharge instructionsAmbulatory Orders* Referral to PT / OT / Speech (PT/OT/SP) Location: None [facility] Work Phone: Summary Purpose Family History Relationship Condition Age at Onset Recorded Date/T jeanne Not Specified Myocardial infarction Unknown father Myocardial infarction Unknown father Unknown Not Specified Unknown Relationship Condition Age at Onset Recorded Date/T jeanne mother Myocardial infarction Unknown father Myocardial infarction Unknown father Unknown mother Unknown Relationship Condition Age at Onset Recorded Date/T jeanne Not Specified Unknown mother Myocardial infarction Unknown father Myocardial infarction Unknown Relationship Condition Age at Onset Recorded Date/T jeanne mother Myocardial infarction Unknown Unknown father Myocardial infarction Unknown Advance Directives Advance Directive Response Recorded Date/ Time Advance Directives No June 24, 2017 2:52pm Advance Directive Response Recorded Date/ Time Advance Directives No May 12:05pm Advance Directive Response Recorded Date/ Time Advance Directives No May 11:05am Chief Complaint and Reason for Visit Chief Complaint Amb Documentation sinuses- [phone] B-12 Shot B-12 Shot Reason for Visit Mild persistent asth ma with acute exacerbation Acute sinusitis Chief Complaint Amb Documentation sinuses- [phone] B-12 Shot B-12 Shot 4 month follow up Reason for Visit Mild persistent asth ma with acute exacerbation Acute sinusitis ASHD (arteriosclerotic heart disease) Asthma Gastroesophageal reflux disease with esophagitis without hemorrhage Hyperlipidemia type II Paroxysmal atrial fibrillation Chief Complaint Amb Documentation sinuses- [phone] B-12 Shot B-12 Shot 4 month follow up B-12 SHOT Reason for Visit Mild persistent asth ma with acute exacerbation Acute sinusitis ASHD (arteriosclerotic heart disease) Asthma Gastroesophageal reflux disease with esophagitis without hemorrhage Hyperlipidemia type II Paroxysmal atrial fibrillation Pernicious anemia Chief Complaint Amb Documentation sinuses- [phone] B-12 Shot B-12 Shot 4 month follow up B-12 SHOT test results Reason for Visit Mild persistent asth ma with acute exacerbation Acute sinusitis ASHD (arteriosclerotic heart disease) Asthma Gastroesophageal reflux disease with esophagitis without hemorrhage Hyperlipidemia type II Paroxysmal atrial fibrillation Pernicious anemia Chief Complaint Amb Documentation sinuses- [phone] B-12 Shot B-12 Shot 4 month follow [...] stress test Chief Complaint Amb Documentation sinuses- [phone] B-12 Shot B-12 Shot 4 month follow [...] acute exacerbation Low back pain Lumbar spondylosis Chief Complaint B12 Shot 4 Month Check Up B12 Shot sinus pressure Sciatica pain/ B12 shot 1 year follow up Reason for Visit ASHD (arteriosclerot ic heart disease) Asthma Gastroesophageal reflux disease with esophagitis without hemorrhage Hypercholesterolemia Hypertension Paroxysmal atrial fibrillation Pernicious anemia Acute bronchitis due to other specified organisms Mild persistent asthma with acute exacerbation Low back pain Lumbar spondylosis Irritable bowel syndrome with constipation Schatzki's ring Chief Complaint B12 Shot 4 Month Check Up B12 Shot sinus pressure Sciatica pain/ B12 shot 1 year follow up Lumbago Sciatica pain-chronic pain Reason for Visit ASHD (arteriosclerot ic heart disease) Asthma Gastroesophageal reflux disease with esophagitis without hemorrhage Hypercholesterolemia Hypertension Paroxysmal atrial fibrillation Pernicious anemia Acute bronchitis due to other specified organisms Mild persistent asthma with acute exacerbation Low back pain Lumbar spondylosis Irritable bowel syndrome with constipation Schatzki's ring Chief Complaint [phone] sinus i nfection B12 Shot 4 Month Check Up B12 Shot sinus pressure Sciatica pain/ B12 shot 1 year follow up Lumbago Sciatica pain-chronic pain Reason for Visit Cough Mild persistent asthma with acute exacerbation Nausea Acute bronchitis due to other specified organisms ASHD (arteriosclerotic heart disease) Asthma Gastroesophageal reflux disease with esophagitis without hemorrhage Hypercholesterolemia Hypertension Paroxysmal atrial fibrillation Pernicious anemia Acute bronchitis due to other specified organisms Mild persistent asthma with acute exacerbation Low back pain Lumbar spondylosis Irritable bowel syndrome with constipation Schatzki's ring Low back pain Chief Complaint [phone] sinus i nfection B12 Shot 4 Month Check Up B12 Shot sinus pressure Sciatica pain/ B12 shot 1 year follow up Lumbago Sciatica pain-chronic pain M47.816 Discuss Back Pain Reason for Visit Cough Nausea Acute bronchitis due to other specified organisms ASHD (arteriosclerotic heart disease) Asthma Gastroesophageal reflux disease with esophagitis without hemorrhage Hypercholesterolemia Hypertension Paroxysmal atrial fibrillation Pernicious anemia Acute bronchitis due to other specified organisms Low back pain Lumbar spondylosis Irritable bowel syndrome with constipation Schatzki's ring Low back pain ASHD (arteriosclerotic heart disease) Asthma Low back pain Lumbar spondylosis Chief Complaint B12 Shot 4 Month Check Up B12 Shot sinus pressure Sciatica pain/ B12 shot 1 year follow up Lumbago Sciatica pain-chronic pain M47.816 Discuss Back Pain Dysphagia Dysphagia Reason for Visit ASHD (arteriosclerot ic heart disease) Asthma Gastroesophageal reflux disease with esophagitis without hemorrhage Hypercholesterolemia Hypertension Paroxysmal atrial fibrillation Pernicious anemia Acute bronchitis due to other specified organisms Low back pain Lumbar spondylosis Irritable bowel syndrome with constipation Schatzki's ring Low back pain ASHD (arteriosclerotic heart disease) Asthma Low back pain Lumbar spondylosis Chief Complaint B12 Shot 4 Month Check Up B12 Shot sinus pressure Sciatica pain/ B12 shot 1 year follow up Lumbago Sciatica pain-chronic pain M47.816 Discuss Back Pain Dysphagia Dysphagia ct results, surgical consult Reason for Visit ASHD (arteriosclerot ic heart disease) Asthma Gastroesophageal reflux disease with esophagitis without hemorrhage Hypercholesterolemia Hypertension Paroxysmal atrial fibrillation Pernicious anemia Acute bronchitis due to other specified organisms Low back pain Lumbar spondylosis Irritable bowel syndrome with constipation Schatzki's ring Low back pain ASHD (arteriosclerotic heart disease) Asthma Low back pain Lumbar spondylosis Chief Complaint 4 Month Check Up B12 Shot sinus pressure Sciatica pain/ B12 shot 1 year follow up Lumbago Sciatica pain-chronic pain M47.816 Discuss Back Pain Dysphagia Dysphagia ct results, surgical consult Lumbar Spondylosis Reason for Visit ASHD (arteriosclerot ic heart disease) Asthma Gastroesophageal reflux disease with esophagitis without hemorrhage Hypercholesterolemia Hypertension Paroxysmal atrial fibrillation Pernicious anemia Acute bronchitis due to other specified organisms Low back pain Lumbar spondylosis Irritable bowel syndrome with constipation Schatzki's ring Low back pain ASHD (arteriosclerotic heart disease) Asthma Low back pain Lumbar spondylosis Lumbar spondylosis Chief Complaint 4 Month Check Up B12 Shot sinus pressure Sciatica pain/ B12 shot 1 year follow up Lumbago Sciatica pain-chronic pain M47.816 Discuss Back Pain Dysphagia Dysphagia ct results, surgical consult Lumbar Spondylosis brace fitting Reason for Visit ASHD (arteriosclerot ic heart disease) Asthma Gastroesophageal reflux disease with esophagitis without hemorrhage Hypercholesterolemia Hypertension Paroxysmal atrial fibrillation Pernicious anemia Acute bronchitis due to other specified organisms Low back pain Lumbar spondylosis Irritable bowel syndrome with constipation Schatzki's ring Low back pain ASHD (arteriosclerotic heart disease) Asthma Low back pain Lumbar spondylosis Lumbar spondylosis Chief Complaint 4 Month Check Up B12 Shot sinus pressure Sciatica pain/ B12 shot 1 year follow up Lumbago Sciatica pain-chronic pain M47.816 Discuss Back Pain Dysphagia Dysphagia ct results, surgical consult Lumbar Spondylosis brace fitting Lumbar Spondylosis Lumbar Spondylosis Lumbar Spondylosis Reason for Visit ASHD (arteriosclerot ic heart disease) Asthma Gastroesophageal reflux disease with esophagitis without hemorrhage Hypercholesterolemia Hypertension Paroxysmal atrial fibrillation Pernicious anemia Acute bronchitis due to other specified organisms Low back pain Lumbar spondylosis Irritable bowel syndrome with constipation Schatzki's ring Low back pain ASHD (arteriosclerotic heart disease) Asthma Low back pain Lumbar spondylosis Lumbar spondylosis Accelerated hypertension Hypercholesterolemia Low back pain Lumbar spondylosis Chief Complaint Admit Date sinus pressure May 08, 2024 3: 00pm Sciatica pain/ B12 shot May 30, 2024 3:29pm 1 year follow up June 09, 2024 8:51am Lumbago Sciatica pain-chronic pain Septe er 2023 10:10am M47.816 2024 8:11am Discuss Back Pain 2024 1:44pm Dysphagia June 21, 2024 12 :20pm Dysphagia June 21, 2024 12 :57pm ct results, surgical consult June 10:46am Lumbar Spondylosis June 29, 2024 3 :10pm brace fitting July 04, 2024 1 2:53pm Lumbar Spondylosis July 11, 2024 5 :52am Lumbar Spondylosis July 11, 2024 1 :12pm Lumbar Spondylosis July 12, 2024 9 :24am 2 week po PLIF July 24, 2024 8 :45am B12 Shot August 02, 2024 1:06pm Reason for Visit Admit Date Acute bronchitis due to other specified organisms May 08, 2024 3:00pm Mild persistent asthma with acute exacer bation May 08, 2024 3:00pm Low back pain May 30, 2024 3:29pm Lumbar spondylosis May 30, 2024 3:29pm Irritable bowel syndrome with constipati on June 09, 2024 8:51am Schatzki's ring June 09, 2024 8:51am Dysphagia June 09, 2024 8:51am Low back pain June 12, 2024 10:10am ASHD (arteriosclerotic heart disease) Se ptember 2023 1:44pm Asthma 2024 1:44pm Low back pain 2024 1:44pm Lumbar spondylosis 2024 1:44pm Lumbar spondylosis June 26, 2024 10 :46am Accelerated hypertension July 11 2 024 5:52am Hypercholesterolemia July 11, 2024 5:52am Low back pain July 11, 2024 5 :52am Lumbar spondylosis July 11, 2024 5 :52am Lumbar spondylosis July 24, 2024 8 :45am Chief Complaint Admit Date brace fitting July 04, 2024 1 2:53pm Lumbar Spondylosis July 11, 2024 5 :52am Lumbar Spondylosis July 11, 2024 1 :12pm Lumbar Spondylosis July 12, 2024 9 :24am 2 week po PLIF July 24, 2024 8 :45am B12 Shot August 02, 2024 1:06pm CC Adult Risk Stratification August 092023 10:11am m47.816 August 15, 2024 12:32pm wellness August 18, 2024 8:51am 6 week po PLIF w/xray August 30 8:44am [phone] sinus infection, COVID - De cember 2023 11:39am B12 Shot September 26, 2024 1: 14pm Reason for Visit Admit Date Accelerated hypertension July 11 5:52am Hypercholesterolemia July 11, 2024 5:52am Low back pain July 11, 2024 5 :52am Lumbar spondylosis July 11, 2024 5 :52am Lumbar spondylosis July 24, 2024 8 :45am ASHD (arteriosclerotic heart disease) No vember 2023 8:51am Asthma August 18, 2024 8:51am Gastroesophageal reflux dise ase with esophagitis without hemorrhage August 18, 2024 8:51am Hypercholesterolemia August 18, 2024 8:51am Hypertension August 18, 2024 8:51am Medicare annual wellness visit, subseque nt August 18, 2024 8:51am Paroxysmal atrial fibrillation August 18, 2024 8:51am Pernicious anemia August 18, 2024 8:51am Screening mammogram for breast cancer No vember 2023 8:51am Low back pain August 30, 2024 8:44am Asthma August 31, 2024 11:39am Acute sinusitis August 31, 2024 11:39am Chief Complaint Admit Date Lumbar Spondylosis July 11, 2024 5 :52am Lumbar Spondylosis July 11, 2024 1 :12pm Lumbar Spondylosis July 12, 2024 9 :24am 2 week po PLIF July 24, 2024 8 :45am B12 Shot August 02, 2024 1:06pm CC Adult Risk Stratification August 092023 10:11am m47.816 August 15, 2024 12:32pm wellness August 18, 2024 8:51am 6 week po PLIF w/xray August 30 8:44am [phone] sinus infection, COVID - De cember 2023 11:39am B12 Shot September 26, 2024 1: 14pm [id number] October 06, 2024 9 :55am Chief Complaint Admit Date 2 week po PLIF July 24, 2024 8 :45am B12 Shot August 02, 2024 1:06pm CC Adult Risk Stratification August 092023 10:11am [id number] August 15, 2024 12:32pm wellness August 18, 2024 8:51am 6 week po PLIF w/xray August 30 8:44am [phone] sinus infection, COVID - De cem2023 11:39am B12 Shot September 26, 2024 1: 14pm [id number] October 06, 2024 9 :55am follow up PLIF w/xray October 11, 2024 8:43am Reason for Visit Admit Date Lumbar spondylosis July 24, 2024 8 :45am ASHD (arteriosclerotic heart disease) No 2023 8:51am Asthma August 18, 2024 8:51am Gastroesophageal reflux dise ase with esophagitis without hemorrhage August 18, 2024 8:51am Hypercholesterolemia August 18, 2024 8:51am Hypertension August 18, 2024 8:51am Medicare annual wellness visit, subseque nt August 18, 2024 8:51am Paroxysmal atrial fibrillation August 18, 2024 8:51am Pernicious anemia August 18, 2024 8:51am Screening mammogram for breast cancer No vember 2023 8:51am Low back pain August 30, 2024 8:44am Asthma August 31, 2024 11:39am Acute sinusitis August 31, 2024 11:39am Chief Complaint Admit Date B12 Shot August 02, 2024 1:06pm CC Adult Risk Stratification August 092023 10:11am [id number] August 15, 2024 12:32pm wellness August 18, 2024 8:51am 6 week po PLIF w/xray August 30 8:44am [phone] sinus infection, COVID - De cember 2023 11:39am B12 Shot September 26, 2024 1: 14pm [id number] October 06, 2024 9 :55am follow up PLIF w/xray October 11, 2024 8:43am B12 October 30, 2024 1:15pm Reason for Visit Admit Date ASHD (arteriosclerotic heart disease) No [email or web address] 8:51am Asthma August 18, 2024 8:51am Gastroesophageal reflux dise ase with esophagitis without hemorrhage August 18, 2024 8:51am Hypercholesterolemia August 18, 2024 8:51am Hypertension August 18, 2024 8:51am Medicare annual wellness visit, subseque nt August 18, 2024 8:51am Paroxysmal atrial fibrillation August 18, 2024 8:51am Pernicious anemia August 18, 2024 8:51am Screening mammogram for breast cancer No 2023 8:51am Low back pain August 30, 2024 8:44am Asthma August 31, 2024 11:39am Acute sinusitis August 31, 2024 11:39am Lumbar spondylosis October 11, 2024 8 :43am Chief Complaint Admit Date [phone] sinus infection, COVID - De cem2023 11:39am B12 Shot September 26, 2024 1: 14pm [id number] October 06, 2024 9 :55am follow up PLIF w/xray October 11, 2024 8:43am B12 October 30, 2024 1:15pm hip pain/URI/B12 shot November 29, 2024 1 :22pm Reason for Visit Admit Date Asthma August 31, 2024 11:39am Acute sinusitis August 31, 2024 11:39am Lumbar spondylosis October 11, 2024 8 :43am Hip pain November 29, 2024 1:2 2pm Lumbar spondylosis November 29, 2024 1:2 2pm Acute sinusitis November 29, 2024 1:2 2pm Additional Source Comments INFORMATION SOURCE (unrecogn ized section and content) DATE CREATED AUTHOR 03/22/2021 [facility] DATE CREATED AUTHOR AUTHOR'S SANDY ATARIANA 05/09/2021 [facility] DATE CREATED AUTHOR AUTHOR'S ORGANIZ ATION 11/26/2022 [facility] DATE CREATED AUTHOR AUTHOR'S ORGANIZ ATION 03/02/2024 [facility] EPIC DATE CREATED AUTHOR AUTHOR'S ORGANIZ ATION 06/23/2024 [facility] DATE CREATED AUTHOR AUTHOR'S ORGANIZ ATION 10/10/2024 [facility] REASON FOR VISIT (unrecogniz ed section and content) PATIENT HERE FOR FOLLOW UP T O EGD ON 03/10/2022 FOR DYSPHAGIA., SHE STOPPED LINZESS DUE TO COST, SHE IS HAPPY ON MIRALAX AND COLACE AND HER BOWELS ARE MOVING NORMALLYsinus congestionNo InformationSinuses- [phone], drainage, thick yellow mucus, left ear painmigraine, [...] Provider Active Start: February 16, 2024 Janay Aj Attending Provider Active Start: February 16, 2024 Team Status: Inactive Member Role Status Renate Uribe DO Primary Care Provide r, Attending Provider Active Start: February 21, 2024 End: February 21, 2024 Team Status: Inactive Member Role Status Dates Dontae Uribe DO Primary Care Provide r, Attending [...] Uribe DO Primary Care Provider Active Start: June 09, 2024 End: June 09, 2024 Kym Sanchez DO Attending Provider Active St art: June 09, 2024 End: June 09, 2024 Team Status: Inactive Member Role Status Renate Uribe DO Primary Care Provider Active Start: June 12, 2024 End: June 12, 2024 Alex Francois , DO Attending Provider Active S tart: June 12, 2024 End: June 12, 2024 Team Status: Inactive Member Role Status Dates Dontae Uribe DO Primary Care Provide r, Attending Provider Active Start: March 20, 2024 End: March 20, 2024 Team Status: Active Member Role Status Dates Dontae Uribe DO Primary Care Provider Active Start: 2024 Alexelly Francois , DO Attending Provider Active S tart: 2024 Team Status: Inactive Member Role Status Dates Dontae Uribe DO Primary Care Provide r, Attending Provider Active Start: 2024 End: 2024 Team Status: Inactive Member Role Status Dates Dontae Uribe DO Primary Care Provider Active Start: 2024 End: 2024 Alex N Priscila , DO Attending Provider Active S tart: 2024 End: 2024 Team Status: Inactive Member Role Status Dates Dontae Uribe DO Primary Care Provider Active Start: June 21, 2024 End: June 21, 2024 Kym L Ly , DO Attending Provider Active St art: June 21, 2024 End: June 21, 2024 Team Status: Active Member Role Status Dates Dontae Uribe DO Primary Care Provider Active Start: June 21, 2024 Kym L Ly , DO Attending Provider, Other Provider Active Start: June 21, 2024 Team Status: Inactive Member Role Status Renate Uribe DO Primary Care Provider Active Start: June 26, 2024 End: June 26, 2024 Alexelly Franocis , DO Attending Provider Active S tart: June 26, 2024 End: June 26, 2024 Team Status: Inactive Member Role Status Dates Dontae Uribe DO Primary Care Provider Active Start: June 29, 2024 End: June 29, 2024 Alexelly Francois , DO Attending Provider Active S tart: June 29, 2024 End: June 29, 2024 Team Status: Inactive Member Role Status Dates Dontae Uribe DO Primary Care Provider Active Start: July 04, 2024 End: July 04, 2024 Alexelly Francois , DO Attending Provider Active S tart: July 04, 2024 End: July 04, 2024 Team Status: Inactive Member Role Status Dates Dontae Uribe DO Primary Care Provider Active Start: July 11, 2024 End: July 13, 2024 Alex Francois , DO Attending Provider Active S tart: July 11, 2024 End: July 13, 2024 Calin Adams MD Other Provider Active Start: July 11, 2024 End: July 13, 2024 Team Status: Active Member Role Status Dates Dontae Uribe DO Primary Care Provider Active Start: July 11, 2024 Alex Francois , DO Attending Provider, Other Provider Active Start: July 11, 2024 Calin Adams MD Other Provider Active Start: July 11, 2024 Team Status: Active Member Role Status Dates Dontae Uribe DO Primary Care Provider Active Start: July 12, 2024 Alex Francois , DO Attending Provider, Other Provider Active Start: July 12, 2024 Calin Adams MD Other Provider Active Start: July 12, 2024 Team Status: Inactive Member Role Status Dates Dontae Uribe DO Primary Care Provider Active Start: July 24, 2024 End: July 24, 2024 Alex Francois , Attending Provider Active S tart: July 24, 2024 End: July 24, 2024 Team Status: Inactive Member Role Status Dates Dontae Uribe DO Primary Care Provide r, Attending Provider Active Start: August 02, 2024 End: August 02, 2024 Team Status: Active Member Role Status Renate Uribe DO Primary Care Provide r, Attending Provider Active Start: August 09, 2024 Team Status: Inactive Member Role Status Renate Uribe DO Primary Care Provider Active Start: August 15, 2024 End: August 15, 2024 Alex Francois DO Attending Provider Active S tart: August 15, 2024 End: August 15, 2024 Team Status: Inactive Member Role Status Dates Dontae Uribe DO Primary Care Provide r, Attending Provider Active Start: August 18, 2024 End: August 18, 2024 Team Status: Inactive Member Role Status Renate Uribe DO Primary Care Provider Active Start: August 30, 2024 End: August 30, 2024 Alex Francois , DO Attending Provider Active S tart: August 30, 2024 End: August 30, 2024 Team Status: Inactive Member Role Status Renate Uribe DO Primary Care Provide r, Attending Provider Active Start: August 31, 2024 End: August 31, 2024 Team Status: Inactive Member Role Status Dates Dontae Uribe DO Primary Care Provide r, Attending Provider Active Start: September 26, 2024 End: September 26, 2024 Team Status: Inactive Member Role Status Dates Dontae Uribe , Primary Care Provider Active Start: October 06, 2024 End: October 06, 2024 Alex Francois , DO Attending Provider, Referring Provider Active Start: October 06, 2024 End: October 06, 2024 Team Status: Inactive Member Role Status Dates Dontae Uribe , Primary Care Provider Active Start: October 11, 2024 End: October 11, 2024 Alex Francois , DO Attending Provider Active S tart: October 11, 2024 End: October 11, 2024 Team Status: Inactive Member Role Status Dates Dotnae Asuncion DO Primary Care Provide r, Attending Provider Active Start: October 30, 2024 End: October 30, 2024 Team Status: Inactive Member Role Status Dates Dontae Uribe DO Primary Care Provide r, Attending Provider Active Start: November 29, 2024 End: November 29, 2024 Goals (unrecognized section and content) Goals [...] BE BASED ON THE PRIMARY CLINICAL RECORDS. [employer] provides no warranty or guarantee of the accuracy or completeness of information in this document.
== END 2024-11-30 08:03 | disposition home or self-care (01) ==
LOC: RAD 08:02
PROVIDERS: PCP Internal Medicine; Visit Provider Internal Medicine
DX: M25.551 Pain in right hip (principal); M16.11 Unilateral primary osteoarthritis, right hip
CPT/HCPCS: 73502

== ENCOUNTER 2024-12-14 08:56 | Outpatient (RCR) | payer MEDICARE, SELFPAY | END 2025-03-14 07:27 | disposition home or self-care (01) | LOC: PT 08:56 | PROVIDERS: PCP Internal Medicine; Visit Provider Internal Medicine | DX: M25.551 Pain in right hip (principal); M70.61 Trochanteric bursitis, right hip | CPT/HCPCS: 97035; 97110; 97113; 97140; 97161; G0283 ==

== ENCOUNTER 2025-08-27 06:53 | Outpatient (OUT) | payer MEDICARE, SELFPAY ==
--- OUTSIDE RECORDS SUMMARY | 2025-08-27 06:56 | XMS_ITS | Encounter Summary ---
Author Organization [facility] Address [address] [place] [address] Care Team Providers Care Industrial Sewer Name Role Phone Dontae Uribe DO Primary Care Provider [phone] Reason for Visit * ReasonOnset DateCommentsMed Hvznkp9808/20/2025 Encounter Details DateTypeDepartmentCare Team (Latest Contact Info)Mxgpcfdiapn14/01/2025Refill [facility] [address] [place] [address] [place], [place] Essential hypertension Social History Tobacco UseTypesPacks/DayYears UsedDateSmoking Tobacco: NeverSmokeless Tobacco: NeverAlcohol UseStandard Drinks/WeekCommentsNot Currently0 (1 standard drink = 0.6 oz pure alcohol)CA Safety & EnvironmentAnswerDate RecordedFear of Current or Ex-PartnerNot on file11/11/2023Emotionally AbusedNot on file11/11/2023hysically AbusedNot on file11/11/2023Sexually AbusedNot on file11/11/2023hysically or Sexually AbusedNot on file11/11/2023CommentsUnknownSex and Gender InformationValueDate RecordedSex Assigned at BirthNot on fileLegal SexFemale 03/18/2022 10:27 PM EDTGender IdentityNot on fileSexual OrientationNot on file documented as of this encounter Plan of Treatment Not on file documented as of this encounter Visit Diagnoses Diagnosis Essential hypertension Unspecified essential hypertension documented in this encounter Care Teams Team MemberRelationshipSpecialtyStart DateEnd Date Dontae Uribe DO [address] [place] [address] [place] [address] [facility] - Lhiswye51/12/22documented as of this encounter
--- OUTSIDE RECORDS SUMMARY | 2025-08-27 06:56 | XMS_ITS | Clinical Summary ---
Author Organization [facility] Address [address] [place] [address] Care Team Providers Care Bias Cutter Helper Name Role Phone Unavailable Primary Care Provider Unavailabl e Allergies Active AllergyReactionsCriticalityNoted ZgnmLjernjsoJbirfbymFrdcCkw96/07/2024 CephalosporinsHives,PqtcMbgb65/11/2013CiprofloxacinHives,Itching,RashLow 08/30/2013PenicillinsHives,KxutAhzd78/11/9810KcskeozLapafrr89/11/2013 Muscle pain and Joint pain Sulfa AgxbupjvxsiKshoRlb30/07/2024 Medications MedicationSigDispense QuantityRefillsLast FilledStart DateEnd DateStatus albuterol HFA 90 mcg/act inhaler INHALE 2 PUFFS EVERY 4 HOURS NEEDED FOR COUGH AND SHORTNESS OF BREATHActive amLODIPine (Norvasc) 2.5 MG tablet Daily12/24/2023ctive aspirin 81 MG EC tablet Take 1 tablet by mouth DailyActive azithromycin (Zithromax) 250 MG tablet 12/31/2023ctive carvedilol (Coreg) 25 MG tablet Take 1 tablet by mouth in the morning and 1 tablet before bedtime.09/22/2023 Active clopidogrel (Plavix) 75 MG tablet Daily11/30/2023ctive dicyclomine (Bentyl) 10 MG capsule TAKE ONE CAPSULE BY MOUTH FOUR TIMES A DAY NEEDEDActive Repatha SureClick 140 MG/ML injection INJECT 1 ML EVERY 2 WEEKS BY SUBCUTANEOUS ROUTE.07/05/2023ctive ezetimibe (Zetia) 10 MG tablet Take 1 tablet by mouth Daily04/07/2023ctive furosemide (Lasix) 20 MG tablet Take 1 tablet by mouth DailyActive linaCLOtide (Linzess) 145 MCG capsule PRNActive losartan (Cozaar) 25 MG tablet Take 1 tablet by mouth DailyActive nitroglycerin (Nitrostat) 0.4 MG SL tablet every 5 to 15 ejbxoou4912/24/2023ctive predniSONE 5 MG/5ML solution TAKE 10ML BY MOUTH 3 TIMES A DAY FOR 3 DAYS NEEDED FOR COUGH/ SHORTNESS OF BREATHActive promethazine (Phenergan) 25 MG tablet Active trimethoprim-polymyxin b (Polytrim) ophthalmic solution Indications:Age-related nuclear cataract of both eyesAdminister 1 drop into the right eye in the morning and 1 drop in the evening and 1 drop before bedtime. 5 mL ctive Active Problems ProblemNoted DateDiagnosed DateAge-related nuclear cataract of both eyes 03/01/2024 Social History Tobacco UseTypesPacks/DayYears UsedDateSmoking Tobacco: NeverSmokeless Tobacco: Never Tobacco Cessation:Counseling Given: Not Answered CommentsUnknownSex and Gender InformationValueDate RecordedSex Assigned at BirthNot on fileLegal EggMsdwqn08/15/2023 7:07 PM EDTGender IdentityNot on fileSexual OrientationNot on file Plan of Treatment Not on file Insurance
--- OUTSIDE RECORDS SUMMARY | 2025-08-27 06:56 | XMS_ITS | Clinical Summary ---
Author Organization [facility] Address [address] [place] [address] Care Team Providers Care Chief Librarian Branch Name Role Phone Dontae Uribe DO Primary Care Provider [phone] Allergies Active AllergyReactionsCriticalityNoted DateCommentsCephalosporinsHives,RashHigh 08/30/2013CiprofloxacinHives,Itching,LztpSen4808/30/2013PenicillinsHives,RashHigh 08/30/20132344Jknbfyy-Yek-Tfh Reductase FelayrvbrcTixxs23/11/2013 Muscle pain and Joint pain Sulfa (Sulfonamide Antibiotics)PmgpOcn0401/25/2024 Medications MedicationSigDispense QuantityRefillsLast FilledStart DateEnd DateStatus aspirin 81 mg EC tablet Indications:Atherosclerosis of [place] coronary artery of [place] heart without angina pectorisaspirin 81 mg tablet,delayed release TAKE ONE TABLET BY MOUTH EVERY DAYActive albuterol 90 mcg/actuation inhaler albuterol sulfate HFA 90 mcg/actuation aerosol inhaler INHALE 2 PUFFS EVERY 4 HOURS NEEDED FOR COUGH AND SHORTNESS OF BREATHActive evolocumab (Repatha SureClick) 140 mg/mL pen injector Indications:Hyperlipidemia, unspecified hyperlipidemia typeInject 1 mL under the skin every 30 (thirty) days. 6 mL 3Active Additional Information Patient not taking.Reported on 01/31/2025 pantoprazole (ProtoNix) 40 mg EC tablet Take 40 mg by mouth before breakfast. Do not crush, chew, or split.Active tiZANidine (Zanaflex) 4 mg tablet Take 4 mg by mouth every 6 (six) hours if needed for muscle spasms.Active losartan (Cozaar) 50 mg tablet Indications:Essential hypertensionTake 1 tablet (50 mg) by mouth in the morning. 90 tablet /ctive nitroglycerin (Nitrostat) 0.[address] 0.4 mg under the tongue every 5 (five) minutes if needed.12/24/2023ctive ezetimibe (Zetia) 10 mg tablet Indications:Coronary artery disease, unspecified vessel or lesion type, unspecified whether angina present, unspecified whether [place] or transplanted heartTake 1 tablet (10 mg) by mouth once daily as directed. 90 tablet tive furosemide (Lasix) 20 mg tablet Indications:Edema, unspecified typeTake 1 tablet (20 mg) by mouth in the morning. 90 tablet /ctive carvedilol (Coreg) 25 mg tablet Indications:Essential hypertensionTake 1 tablet (25 mg) by mouth in the morning and at bedtime. 180 tablet tive carvedilol (Coreg) 25 mg tablet Indications:Essential hypertensionTAKE ONE TABLET BY MOUTH TWICE A DAY 180 tablet Discontinued(Reorder) Active Problems ProblemNoted DateDiagnosed DateNon-sustained ventricular yiwedcbrycg06/03/2024 Assessment & Plan (06/22/2024 9:38 AM EDT): Continue Coreg Age-related nuclear cataract of both eyes03/01/20248531Ycuyjmeqb92 Bslwrtkk87Hypertensioncute recurrent maxillary kvrhcqmlu79ge-related osteoporosis without current pathological joizyiqa28nemiasthma ysphagiaEczema, cspjaqazwbh99/17/2024 01/05/2024Esophageal jnawrwrbt11Gastroesophageal reflux disease with esophagitis without uxxuupbhyh19Hyperlipidemia type IIIrritable bowel syndrome with helmylkatrer00/17/2024 01/05/2024Lumbar ohoiehuagbd18Menopause Paroxysmal atrial yuxwomnvndsq69Mild persistent asthma with acute hlssmqkgbgwg50Migraine with aura and without status migrainosus, not nkahdyeqqls94ernicious tngbcl3401/05/2024 01/05/2024ost-COVID khstpfkx45Schatzki's ring01/05/2024 01/05/2024Seasonal allergic rhinitis due to ibpvqw88enign essential HTN07/01/2022 Assessment & Plan (06/22/2024 9:30 AM EDT): Hypertension is well controlled 138/82 Continue losartan and coreg. Renal function stable Assessment & Plan (07/01/2022 9:57 AM EDT): B/p uncontrolled today 181/80 and she states [...] or for any concerns of lightheadedness/dizziness, syncope Functional akggwvtsz50/11/2013Chest pain01/10/2013 Assessment & Plan (07/01/2022 9:57 AM EDT): denied Coronary ksvysdtbanmzekd33/23/2013 Assessment & Plan (06/22/2024 9:31 AM EDT): Coronary artery disease is stable, no concerning symptoms currently Continue GDMT- ASA, coreg, repatha, zetia Lipids are well controlled and liver function normal continue risk factor modifications- heart healthy diet, regular exercise as tolerated and continue all medications. Assessment & Plan (07/01/2022 9:55 AM EDT): No concerning symptoms today Tolerating cardiac rehab well Continue GDMT- ASA, coreg, zetia, and repatha She reports that last month she was having side effects of flu like symptoms - body aches, swollenlymph nodes, and in general feeling yucky after [...] level in 3 months RTC 3 months Icduriqhzvxgtg32/23/2013 Assessment & Plan (06/22/2024 7:01 AM EDT): Continue Repatha and Zetia. Assessment & Plan (07/01/2022 9:57 AM EDT): Repatha once/month Continue zetia Repeat labs in 3 months Old myocardial cqjfpqwrla48/23/2013 Resolved Problems ProblemNoted DateDiagnosed DateResolved DateMalignant essential hypertension Encounters DateTypeDepartmentCare ZvtdOdfupvymrfj54/01/2025Ref[facility] [place] [address] [place] [address] Henry, Flower, HANY Essential hypertensionfrom Last 3 Months Family History Medical HistoryRelationNameCommentsAlzheimer's diseaseFatherCoronary artery diseaseFatherCoronary artery diseaseMotherRelationNameStatusCommentsFather DeceasedMotherDeceased Social History Tobacco UseTypesPacks/DayYears UsedDateSmoking Tobacco: NeverSmokeless Tobacco: Never Tobacco Cessation:Counseling Given: Not Answered Alcohol UseStandard Drinks/WeekCommentsNot Currently0 (1 standard drink = 0.6 oz pure alcohol)UT Safety & EnvironmentAnswerDate RecordedFear of Current or Ex-PartnerNot on file11/11/2023Emotionally AbusedNot on file11/11/2023hysically AbusedNot on file11/11/2023Sexually AbusedNot on file02/22/2024Physically or Sexually AbusedNot on file4CommentsUnknownSex and Gender InformationValueDate RecordedSex Assigned at BirthNot on fileLegal SexFemale 03/18/2022 10:27 PM EDTGender IdentityNot on fileSexual OrientationNot on file Last Filed Vital Signs Vital SignReadingTime TakenCommentsBlood Woatbneu192/8401/31/2025 9:29 AM EDT Uldkl194601/31/2025 9:29 AM MAWVsgasvewali83.7 ??C (98 ??F)04/24/2021 1:48 PM EDT Respiratory Qytq5576 1:48 PM EDTOxygen Dmdyhqnhlw10%01/31/2025 9:29 AM EDTInhaled Oxygen Concentration--Jzjheq11.3 kg (113 lb)01/31/2025 9:29 AM EDT Wbcnqc465.6 cm (5' 6 )01/31/2025 9:29 AM EDTBody Mass Index18.24001/31/2025 9:29 AM EDT Plan of Treatment Health MaintenanceDue DateLast DoneCommentsCT Bjshjpldecjw1951Colonoscopy 1950olorectal Cancer Uazolzkzi1951FIT-DNA1951FIT1950 FOBT1950Medicare Annual Wellness (AWV)1950 5630Ynkmkfgvyaqdk1950 Depression Senixglxw56/27/1963Pneumococcal Vaccine: 50+ Years (1 of 2 - PCV) 1970Adult Hbqheiz1406/16/19730312Xxzgdjawu07/27/1991Zoster Vaccines (1 of 2) 2001Fall Risk Byysslxws88/27/2016COVID-19 Vaccine ( season) 512/05/2023, 07/01/2022, 09/17/2021, Additional history existsInfluenza OclitelHldzqsrwb56/01/2025, 08/04/2024, 07/27/2023, Additional history existsHIB VaccinesAged OutNo longer eligible based on patient's age to complete this topic HPV VaccinesAged OutNo longer eligible based on patient's age to complete this topicIPV VaccinesAged OutNo longer eligible based on patient's age to complete this topicMeningococcal B VaccineAged OutNo longer eligible based on patient's age to complete this topicMeningococcal VaccineAged OutNo longer eligible based on patient's age to complete this topicRotavirus VaccinesAged OutNo longer eligible based on patient's age to complete this topic Insurance Care Teams Team MemberRelationshipSpecialtyStart DateEnd Date Dontae Uribe DO [address] [place] [address] [facility] - Sikqmvg43/12/22
[2025-08-27 07:23] LABS: Hematocrit 36.7 % (36.0-48.0); Hemoglobin 11.8 g/dL (12.0-16.0); Immature Granulocytes Abs Auto 0.03 10^3/uL (0.00-0.03); Immature Granulocytes Pct Auto 0.3 % (0.0-0.5); Lymphocytes Absolute Auto 1.6 10^3/uL (1.2-3.8); Mean Corpuscular HGB Conc 32.2 g/dL (29.9-35.2); Mean Corpuscular Hemoglobin 31.0 pg (26.7-34.0); Mean Corpuscular Volume 96.3 fL (81.0-99.0); Platelet Count 368 10^3/uL (150-450); Red Blood Count 3.81 10^6/uL (4.20-5.40); White Blood Count 9.7 10^3/uL (4.0-11.0)
[2025-08-27 08:08] LABS: Alanine Aminotransferase 18 U/L (14-59); Albumin Globulin Ratio 0.9; Albumin Level 3.6 g/dL (3.4-5.0); Alkaline Phosphatase 76 U/L (46-116); Anion Gap 14.1; Aspartate Amino Transferase 13 U/L (15-37); Blood Urea Nitrogen 13.0 mg/dL (7.0-18.0); Calcium 9.2 mg/dL (8.5-10.1); Carbon Dioxide 32.2 mmol/L (21.0-32.0); Chloride 105 mmol/L (98-107); Cholesterol 210 mg/dL (<=200); Estimated GFR (African America >60 (>=60 mL/min/1.73m^2); Estimated GFR (Non-African Ame >60 (>=60 mL/min/1.73m^2); Globulin 3.9 g/dL; Glucose 106 mg/dL (74-106); HDL Cholesterol 56 mg/dL (40-60); Potassium 4.3 mmol/L (3.5-5.1); Sodium 147 mmol/L (136-145); Total Protein 7.5 g/dL (6.4-8.2); Triglycerides 192 mg/dL (<=150); VLDL CHOLESTEROL 38.4 mg/dL
--- NOTE | 2025-08-27 08:52 | MM_ITS ---
Patient Name: SJ HALL MR#: [id number] : 1950 Exam Date: 08/27/2025 Ordering Doctor: DR ABEL ROLAND D.O. RADIOLOGY REPORT PROCEDURE: MM TOMOSYNTHESIS SCREENING BI COMPARISON: MM TOMOSYNTHESIS SCREENING BI, 02/25/2023. MG MAMM SCREEN 3D DONNELL CAD, 02/24/2021. INDICATIONS: Screening Calculator Name NCI Breast Cancer Risk Assessment Tool 5 Year Breast Cancer Risk Not Reported. Lifetime Breast Cancer Risk Not Reported. Personal Breast Cancer No Personal Ovarian Cancer No Treatments None Family Cancers None LOCATION: [facility] BREAST COMPOSITION: The breasts are extremely dense, which lowers the sensitivity of mammography. FINDINGS: RIGHT BREAST: No significant suspicious finding. Benign-appearing calcifications are present . LEFT BREAST: No significant suspicious finding. Benign-appearing calcifications are noted. DIAGNOSTIC CATEGORY 2--BENIGN FINDING. NO CHANGE FROM COMPARISON. RECOMMENDATIONS: ROUTINE MAMMOGRAM AND CLINICAL EVALUATION IN 12 MONTHS. Dictated by: Jw Yeager MD on 08/27/2025 at 14:02 Approved by: Jw Yeager MD on 08/27/2025 at 14:52
== END 2025-08-27 06:54 | disposition home or self-care (01) ==
LOC: MAMMO 06:53
PROVIDERS: PCP Internal Medicine; Visit Provider Internal Medicine
DX: Z12.31 Encounter for screening mammogram for malignant neoplasm of breast (principal); I10 Essential (primary) hypertension; I25.10 Atherosclerotic heart disease of native coronary artery without angina pectoris; R73.9 Hyperglycemia, unspecified; E78.00 Pure hypercholesterolemia, unspecified; D51.0 Vitamin B12 deficiency anemia due to intrinsic factor deficiency
CPT/HCPCS: 36415; 77063; 77067; 80053; 80061; 83036; 85025